=== PATIENT | male | born 1950 | race Caucasian/White ===

== ENCOUNTER 2022-09-03 16:40 | Outpatient (OUT) | payer MEDICARE, OTHER, SELFPAY ==
[2022-09-03 14:24] LABS: INR 2.16; Prothrombin Time 21.9 sec (9.0-11.6)
== END 2022-09-03 16:41 ==
LOC: LAB 09-04 11:01
PROVIDERS: PCP Family Medicine; Visit Provider Family Medicine
DX: Z79.01 Long term (current) use of 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 (principal)
CPT/HCPCS: 36415; 85610

== ENCOUNTER 2022-09-09 10:04 | Outpatient (OUT) | payer MEDICARE, OTHER, SELFPAY ==
[2022-09-09 10:17] LABS: Basophils Absolute Auto 0.1 10^3/uL (0.0-0.1); Basophils Percent Auto 0.6 % (0.2-2.0); Eosinophils Absolute Auto 0.3 10^3/uL (0.0-0.7); Eosinophils Percent Auto 3.5 % (0.9-7.0); Hematocrit 45.6 % (42.0-54.0); Hemoglobin 15.1 g/dL (14.0-18.0); Immature Granulocytes Abs Auto 0.03 10^3/uL (0.00-0.03); Immature Granulocytes Pct Auto 0.3 % (0.0-0.5); Lymphocytes Absolute Auto 2.5 10^3/uL (1.2-3.8); Mean Corpuscular HGB Conc 33.1 g/dL (29.9-35.2); Mean Corpuscular Hemoglobin 28.9 pg (25.9-34.0); Mean Corpuscular Volume 87.4 fL (80.0-94.0); Mean Platelet Volume 9.3 fL (9.5-13.5); Monocytes Absolute Auto 0.6 10^3/uL (0.3-0.8); Monocytes Percent Auto 7.3 % (1.7-12.0); Neutrophils Absolute Auto 5.2 10^3/uL (1.4-6.5); Neutrophils Percent Auto 59.3 % (43.0-75.0); Platelet Count 197 10^3/uL (150-450); Red Blood Count 5.22 10^6/uL (4.70-6.10); Red Cell Distribution Width 12.3 % (11.0-15.0); White Blood Count 8.7 10^3/uL (4.0-11.0)
[2022-09-09 12:12] LABS: Estimated Average Glucose 120 mg/dL; Glycohemoglobin A1C 5.8 % (4.5-6.2)
[2022-09-09 13:54] LABS: Alanine Aminotransferase 39 U/L (16-63); Albumin Level 3.7 g/dL (3.4-5.0); Alkaline Phosphatase 90 U/L (46-116); Anion Gap 13.9; Aspartate Amino Transferase 21 U/L (15-37); BUN Creatinine Ratio 16.8; Bilirubin Direct 0.1 mg/dL (0.0-0.2); Bilirubin Total 0.5 mg/dL (0.2-1.0); Calcium 8.9 mg/dL (8.5-10.1); Carbon Dioxide 26.9 mmol/L (21.0-32.0); Chloride 105 mmol/L (98-107); Chol HDL Ratio 3.6; Cholesterol 116 mg/dL (<=200); Estimated GFR (African America >60 (>=60); Estimated GFR (Non-African Ame >60 (>=60); Globulin 3.6 g/dL; Glucose 107 mg/dL (74-106); HDL Cholesterol 32 mg/dL (40-60); Potassium 3.8 mmol/L (3.5-5.1); Sodium 142 mmol/L (136-145); Thyroid Stimulating Hormone 2.135 uIU/mL (0.358-3.740); Total Protein 7.3 g/dL (6.4-8.2); Triglycerides 138 mg/dL (<=150); VLDL CHOLESTEROL 27.6 mg/dL
== END 2022-09-09 10:05 | disposition home or self-care (01) ==
LOC: LAB 10:04
PROVIDERS: PCP Family Medicine; Visit Provider Family Medicine
DX: I10 Essential (primary) hypertension (principal); E55.9 Vitamin D deficiency, unspecified; Z79.899 Other long term (current) drug therapy; R73.03 Prediabetes; E78.5 Hyperlipidemia, unspecified; Z12.5 Encounter for screening for malignant neoplasm of prostate; E66.9 Obesity, unspecified
CPT/HCPCS: 36415; 80048; 80061; 80076; 82306; 83036; 84443; 85025; G0103

== ENCOUNTER 2022-10-29 14:10 | Outpatient (OUT) | payer MEDICARE, OTHER, SELFPAY ==
[2022-10-29 14:49] LABS: INR 2.55; Prothrombin Time 25.6 sec (9.0-11.6)
== END 2022-10-29 14:11 | disposition home or self-care (01) ==
LOC: LAB 14:11
PROVIDERS: PCP Family Medicine; Visit Provider Family Medicine
DX: Z79.01 Long term (current) use of 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 (principal)
CPT/HCPCS: 36415; 85610

== ENCOUNTER 2022-12-01 08:04 | Outpatient (OUT) | payer MEDICARE, OTHER, SELFPAY ==
--- NOTE | 2022-12-01 08:07 | CT_ITS ---
The [address] [address] Patient Name: BILL HULL MRN: [id number] date: 1950 Sex: M Assigned Patient Location: CT Current Patient Location: LAB Accession/Order Number: [id number] Exam Date: 12/01/2022 08:15 Report Date: 12/01/2022 08:45 At the request of: OUSMANE ORNELAS Procedure: CT chest high res EXAM: CT scan of the chest without contrast. Dose reduction technique used: Automated exposure control and/or adjustment of the mA and/or kV according to patient size and/or use of iterative reconstruction technique. REASON FOR EXAM: Pulmonary fibrosis J84.10 COMPARISON: CT scan dated 11/27/2021 FINDINGS: No acute airspace opacities. No pneumothorax. No pleural effusion. No acute fractures. No concerning pulmonary nodules. No definite lymphadenopathy in the chest. Scarring in the right lower lung. Mild fibrotic changes at the periphery of both lungs are not substantially changed. Coronary atherosclerotic calcifications. Remainder unremarkable. CT/CT chest high res IMPRESSION: Mild fibrotic changes in both lungs are not substantially changed. Electronically authenticated by: RUTH CHEW Date: 12/01/2022 08:45
[2022-12-01 08:53] LABS: Hemoglobin 15.2 g/dL (14.0-18.0)
--- NOTE | 2022-12-01 09:32 | RT_ITS ---
The [facility] Test Date: 2022-12-01 Pat Name: BILL HULL Department: Room: - Gender: Male Health Care Marketing Manager: Racheal HopkinsACCOUNT ASSOCIATE : 1950 Requested By: Josafat Mckeon Order Number: [id number] Reading MD: Josafat Mckeon Interpretive Statements Pulmonary function testing was completed according to ATS criteria. Findings were considered accurate and reproducible. No bronchodilator was administered due to normal spirometric values. No prior studies available for comparison. Spirometry: -FEV1/FVC: Normal @ 78% -FEV1: Normal @ 90% -FVC: Normal @ 84% Lung volumes by plethysmography: -RV: Normal @ 107% -TLC: Normal @ 94% Diffusion capacity: -DLCO: Mild reduction @ 75% when corrected for Hb 15.1g/dL Flow-volume loop: -Normal shape Impressions: -Normal spirometry and lung volumes with isolated mild diffusion impairment. This pattern can be seen in, but not restricted to, cardiopulmonary vascular disorders, early interstitial lung disease, and early emphysema. Clinical correlation required. Electronically Signed On 12-01-2022 9:41:31 EDT by Jsoafat Mckeon
== END 2022-12-01 08:05 | disposition home or self-care (01) ==
LOC: CT 08:04
PROVIDERS: PCP Family Medicine; Visit Provider Internal Medicine
DX: J84.10 Pulmonary fibrosis, unspecified (principal)
CPT/HCPCS: 36415; 71250; 85018; 94010; 94726; 94729

== ENCOUNTER 2022-12-01 08:42 | Outpatient (OUT) | payer MEDICARE, OTHER, SELFPAY ==
[2022-12-01 09:05] LABS: INR 2.81; Prothrombin Time 28.1 sec (9.0-11.6)
== END 2022-12-01 08:43 | disposition home or self-care (01) ==
LOC: LAB 08:42
PROVIDERS: PCP Family Medicine; Visit Provider Family Medicine
DX: Z79.01 Long term (current) use of 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 (principal)
CPT/HCPCS: 36415; 85610

== ENCOUNTER 2023-01-20 12:56 | Outpatient (OUT) | payer MEDICARE, OTHER, SELFPAY ==
[2023-01-20 13:53] LABS: Prothrombin Time 23.3 sec (9.0-11.6)
== END 2023-01-20 12:57 | disposition home or self-care (01) ==
LOC: LAB 12:56
PROVIDERS: PCP Family Medicine; Visit Provider Family Medicine
DX: Z79.01 Long term (current) use of 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 (principal)
CPT/HCPCS: 36415; 85610

== ENCOUNTER 2023-03-02 13:29 | Outpatient (OUT) | payer MEDICARE, OTHER, SELFPAY ==
[2023-03-02 14:00] LABS: INR 3.03; Prothrombin Time 30.2 sec (9.0-11.6)
== END 2023-03-02 13:30 | disposition home or self-care (01) ==
LOC: LAB 13:29
PROVIDERS: PCP Family Medicine; Visit Provider Family Medicine
DX: Z79.01 Long term (current) use of 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 (principal)
CPT/HCPCS: 36415; 85610

== ENCOUNTER 2023-04-16 14:26 | Outpatient (OUT) | payer MEDICARE, OTHER, SELFPAY ==
--- OUTSIDE RECORDS SUMMARY | 2023-04-16 14:29 | XMS_ITS | CCD ---
Author Name Unknown Address [address] [place] [address] Organization [facility] Care Team Providers Care [employer] Founder Name Role Phone CHARBEL ZUÑIGA Unavailable Unavailable CICIREYES Unavailable Unavailable NADERER, DR NOEL Mckinney Admitting Unavailable NADERER, DR NOEL Mckinney Attending Unavailable NADERER, DR NOEL Mckinney Consulting Unavailable NADERER, DR NOEL Mckinney Primary Care Unavailable NADERER, DR NOEL Mckinney Admitting Unavailable NADERER, DR NOEL Mckinney Attending Unavailable NADERER, DR NOEL Mckinney Consulting Unavailable NADERER, DR NOEL Mckinney Primary Care Unavailable NADERER, DR NOEL Mckinney Primary Care Unavailable NADERER, DR NOEL Mckinney Admitting Unavailable NADERER, DR NOEL Mckinney Attending Unavailable NADERER, DR NOEL Mckinney Consulting Unavailable NADERER, DR NOEL Mckinney Primary Care Unavailable NADERER, DR NOEL Mckinney Consulting Unavailable NADERER, DR NOEL Mckinney Admitting Unavailable NADERER, DR NOEL Mckinney Attending Unavailable NADERER, DR NOEL Mckinney Primary Care Unavailable NADERER, DR NOEL Mckinney Consulting Unavailable NADERER, DR NOEL Mckinney Admitting Unavailable NADERER, DR NOEL Mckinney Attending Unavailable NADERER, DR NOEL Mckinney Primary Care Unavailable NADERER, DR NOEL Mckinney Consulting Unavailable NADERER, DR NOEL Mckinney Admitting Unavailable NADERER, DR NOEL Mckinney Attending Unavailable SAMSA ., OUSMANE Admitting Unavailable [place], DR KELY Rae Consulting Unavailable SAMSA ., OUSMANE Attending Unavailable NADERER, DR NOEL Mckinney Primary Care Unavailable SAMSA ., OUSMANE Consulting Unavailable Problems Active Problems Problem Classification Problem Date Documented Da te Episodic/Chronic Other aftercare (4 sources) 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; Translations: [NURSING HOME CURRNT USE ANTICOAGULANTS] Onset: 07-17-2022 Episodic Other lower respiratory disease (4 sources) Pulmonary fibrosis, unspecified; Translations: [PULMONARY FIBROSIS UNSPECIFIED] Onset: 11-27-2021 Chronic Substance-related disorders (1 source) Nicotine dependence, cigarettes, uncomplicated; Translations: [NICOTINE DEPEND CIGARETTES UNCOMP] Onset: 12-01-2021 Chronic Past or Other Problems Problem Classification Problem Date Documented Da te Episodic/Chronic Other aftercare (1 source) Encounter for follow-up examination after completed treatment for conditions other than malignant neoplasm; Translations: [Encounter for follow-up examination after completed treatment for conditions other than malignant neoplasm] Onset: 04-16-2017 Episodic Results Test Name Value Interpretation Reference Range Facility PROTIMEon 07-17-2022 INR Coag (PPP) [Relative time] 2.75 {INR} Normal [facility] Comment on above: Performed By: #### PT #### [facility] [address] [place] [address] Dr. Roya Martin INR GUIDELINES SEE BELOW Normal [facility] Comment on above: Result Comment: DESIRED INR: 2.0 - 3.0 C ONDITIONS NOT LISTED BELOW 2.5 - 3.5 FOR PROSTHETIC HEART VALVE REPLACEMENT 2.5 - 3.5 RECURRENT THROMBOSIS Performed By: #### P T #### [facility] [address] [place] [address] Dr. Roya Martin PT Coag (PPP) [Time] 27.5 s Critically high 9.0-11.6 [facility] Comment on above: Performed By: #### PT #### [facility] [address] [place] [address] Dr. Roya Martin PROTIMEon 06-04-2022 INR Coag (PPP) [Relative time] 2.97 {INR} Normal [facility] Comment on above: Performed By: #### PT #### [facility] [address] [place] [address] Dr. Roya Martin INR GUIDELINES SEE BELOW Normal [facility] Comment on above: Result Comment: DESIRED INR: 2.0 - 3.0 C ONDITIONS NOT LISTED BELOW 2.5 - 3.5 FOR PROSTHETIC HEART VALVE REPLACEMENT 2.5 - 3.5 RECURRENT THROMBOSIS Performed By: #### P T #### [facility] [address] [place] [address] Dr. Roya Martin PT Coag (PPP) [Time] 29.6 s Critically high 9.0-11.6 [facility] Comment on above: Performed By: #### PT #### [facility] [address] [place] [address] Dr. Roya Martin PROTIMEon 04-03-2022 INR Coag (PPP) [Relative time] 3.40 {INR} Normal [facility] Comment on above: Performed By: #### PT #### [facility] [address] [place] [address] Dr. Roya Martin INR GUIDELINES SEE BELOW Normal [facility] Comment on above: Result Comment: DESIRED INR: 2.0 - 3.0 C ONDITIONS NOT LISTED BELOW 2.5 - 3.5 FOR PROSTHETIC HEART VALVE REPLACEMENT 2.5 - 3.5 RECURRENT THROMBOSIS Performed By: #### P T #### [facility] [address] [place] [address] Dr. Roya Martin PT Coag (PPP) [Time] 33.6 s Critically high 9.0-11.6 [facility] Comment on above: Performed By: #### PT #### [facility] [address] [place] [address] Dr. Roya Martin PROTIMEon 01-06-2022 INR Coag (PPP) [Relative time] 2.45 {INR} Normal [facility] Comment on above: Performed By: #### PT #### [facility] [address] [place] [address] Dr. Roya Martin INR GUIDELINES SEE BELOW Normal [facility] Comment on above: Result Comment: DESIRED INR: 2.0 - 3.0 C ONDITIONS NOT LISTED BELOW 2.5 - 3.5 FOR PROSTHETIC HEART VALVE REPLACEMENT 2.5 - 3.5 RECURRENT THROMBOSIS Performed By: #### P T #### [facility] [address] [place] [address] Dr. Roya Martin PT Coag (PPP) [Time] 25.0 s Critically high 9.0-11.6 [facility] Comment on above: Performed By: #### PT #### [facility] [address] [place] [address] CHEST HI RESOLUTIONon CT CHEST HI RESOLUTION EXAMINATION: CT CHEST HI RESOLUTION HISTORY: Fibrosis of lung COMPARISON: 11/20/2020 TECHNIQUE: Axial images were obtained at 10 mm intervals during inspiration and expiration in the supine and prone positions. No IV contrast given. Dose reduction techniques were achieved by using automated exposure control and/or adjustment of mA and/or kV according to patient size and/or use of iterative reconstruction technique. FINDINGS: LUNGS: Minimal peripheral subpleural honeycombing with intralobular septal thickening most significant in the medial basilar segments of the lower lobes right greater than left, slightly progressed from the prior exam Contiguous images demonstrate a few scattered punctate pulmonary nodules. Calcified tracheobronchial tree with no bronchiectasis PLEURA: No mass, effusion, or pneumothorax. JENNI: Calcified left hilar lymph nodes MEDIASTINUM: No mass or adenopathy. CHEST WALL: No mass or axillary adenopathy LIMITED ABDOMEN: No suspicious findings. Limited images of the upper abdomen. OTHER: Moderate aortic atherosclerosis IMPRESSION: Slight progression of subpleural honeycombing and interlobular septal thickening suggestive of pulmonary fibrosis/UIP Electronically authenticated by: KELY TAYLOR Date: 2021-11-27 08:56 Normal [facility] HEMOGLOBINon 11-27-2021 Hemoglobin (Bld) [Mass/Vol] 15.4 g/dL Normal 14.0-18.0 [facility] Comment on above: Performed By: #### HGB #### [facility] [address] [place] [address] Dr. Roya Martin PROTIMEon 11-14-2021 INR Coag (PPP) [Relative time] 2.28 {INR} Normal [facility] Comment on above: Performed By: #### PT #### [facility] [address] [place] [address] Dr. Roya Martin INR GUIDELINES SEE BELOW Normal [facility] Comment on above: Result Comment: DESIRED INR: 2.0 - 3.0 C ONDITIONS NOT LISTED BELOW 2.5 - 3.5 FOR PROSTHETIC HEART VALVE REPLACEMENT 2.5 - 3.5 RECURRENT THROMBOSIS Performed By: #### P T #### [facility] [address] [place] [address] Dr. Roya Martin PT Coag (PPP) [Time] 23.3 s Critically high 9.0-11.6 [facility] Comment on above: Performed By: #### PT #### [facility] [address] [address] [address] Roya Martin PROTIMEon 09-09-2021 INR Coag (PPP) [Relative time] 2.70 {INR} Normal [facility] Comment on above: Performed By: #### PT #### [facility] [address] [place] [address] Dr. Roya Martin INR GUIDELINES SEE BELOW Normal [facility] Comment on above: Result Comment: DESIRED INR: 2.0 - 3.0 C ONDITIONS NOT LISTED BELOW 2.5 - 3.5 FOR PROSTHETIC HEART VALVE REPLACEMENT 2.5 - 3.5 RECURRENT THROMBOSIS Performed By: #### P T #### [facility] [address] [address] [address] Roya Martin PT Coag (PPP) [Time] 27.3 s Critically high 9.0-11.6 [facility] Comment on above: Performed By: #### PT #### [facility] [address] [place] [address] Dr. Roya Martin CNOVon 04-16-2017 CNOV Office Visit (CARDFT) BILL PELAEZ ([id number]) 1950 MDate Time Provider Department04/16/17 11:30 AM CHARBEL ZUÑIGA During your visit today, we recorded the following information about you: Pulse Respiration Blood pressure Weight 72/minute 18/minute 125/74 99.3 kg Height 1.778 Aurea Zuñiga MD 04/16/2017 11:49 AM [facility] Department of Cardiovascular MedicineOUTPATIENT VISIT DATE04/16/17OUTPATIENT VISIT TYPEEstablcape fear/harnett healthPRATRIUM [facility] PHYSICIAN:Reyes Bolanos, [id number] 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 History includes frequent PVCs, DVT, renal artery stenosis. He remains very physically active and mostly compliant with a lean diet. Nopalpitations and blood pressure has been well-controlledDenies chest pain, shortness of breath, orthopnea, cough, edema, palpitations,PND, lightheadedness or syncope with physical activity.PAST MEDICAL HISTORYDiagnosis Date- BPH (benign prostatic hypertrophy)- Bradycardia- DVT (deep venous thrombosis) (HCC)- Hx of blood clots- Palpitations- Renal artery stenosis (HCC)No past surgical history on file.NoneSocial HistorySubstance Use Topics- Smoking status: Former Smoker Packs/day: 1.50 Years: 22.00 Types: Cigarettes Quit date: 11/15/1991- Smokeless tobacco: Never Used- Alcohol use NoNo family history on file.NoneALLERGIES:ALLERGIESNo Known AllergiesMEDICATIONS:hydroCHLOR Othiazide (HYDRODIURIL, ESIDRIX) 25 mg tablet Take by mouth oncedaily.lisinopril (ZESTRIL, PRINIVIL) 10 mg tablet Take by mouth once daily.warfarin (COUMADIN) 5 mg tablet Take by mouth daily as directed.metoprolol tartrate, short acting, (LOPRESSOR) 50 mg tablet Take by mouthtwice daily.terazosin (HYTRIN) 5 mg capsule Take by mouth daily at bedtime.simvastatin (ZOCOR) 40 mg tablet Take by mouth daily at bedtime.coenzyme Q10 (COQ-10) 100 mg cap capsule Take by mouth twice daily.Glucosamine Sulfate (GLUCOSAMINE) 500 mg tab Take 1 tablet by mouth.REVIEW OF SYSTEMS:GENERAL: Negative for: Fever, Fatigue.CARDIAC: See HPI above.HEENT: Negative for: Ringing in Ears, nosebleeds, bleeding gums. AdequatedentitionNECK: Negative for: Pain, stiffnessRESPIRATORY: Negative for: Blood in sputum, wheezing.GASTROINTESTINAL: Negative for: Trouble swallowing, blood in stoolMUSCULOSKELETAL: Negative for: Joint stiffness and painNEUROLOGIC: Negative for: Numbness, tremorsPSYCHIATRIC: Negative for: Anxiety, depressionSKIN: Negative for: Rashes, itchingHEMATOLOGICAL/LYMPHATIC: Negative for: Easy bruising, easy bleeding, painfullymph nodesI personally interviewed, confirmed and edited the above information ifobtained by others.PHYSICAL EXAMINATION:BP 125/74 Pulse 72 Resp 18 Ht 177.8 cm (5' 10ANDquot;) Wt 99.3 kg (219lb) SpO2 98% BMI 31.42 kg/b7Nagiqgw: Well appearing, in no acute distress. ObeseNeuro: Oriented to person, place and time, alert, cooperative.Eyes: Extra ocular movements intact, pupils react to lightNeck: No jugular venous distention, no palpable thyromegaly.Heart: Regular rhythm, S1, S2 normal, no S3, no S4. No murmur.Lungs: Clear to auscultation bilaterally. Good respiratory effort.Abdomen: Soft, nontender, bowel sounds normal, no palpable hepatosplenomegalySkin: No clubbing, no cyanosis.Extremities: Normal pulses in distal lower extremities. Absent lower extremityedemaCARDIOVASCULAR MEDICINE TESTING:Electrocardiogram: 04/16/16 NormalEchocardiogram: 01/08/16 [place], stage 1 diastology, no [id number] day monitor 02/14/16inus, rare PACs, frequent PVCs corresponding to palpitationsI have personally reviewed the above Cardiovascular Medicine Testing.IMPRESSION/PLAN:Bill Allen is a 66 year old male with history of frequent PVCs, DVT, HTNhere to follow-upFrequent PVCs: Asymptomatic. Very functional and active. Will continue betablocker at current dose without change. No significant structural heart diseaseon prior echocardiogramDVT: Continue warfarin. Managed by PCP.Hypertension: He has renal artery stenosis that is medically managed. Continuecurrent regimenDisposition: Follow up in clinic in 12 months. Pending studies: noneCONTACT INFORMATION:Thank you for allowing us to assist in the care your patient. As always pleasedo not hesitate to contact us with further questions or concerns.Charbel Zuñiga M.D.[facility] of Cardiovascular MedicineFort Hamilton Hospitalrt and Vascular InstituteThomas Ville [address], [place] [address]Hxbllr: [phone] Referring Provider: REYES BOLANOS [[id number]]Allergies As of Date: 04/16/2017(No Known Allergies)Date Reviewed: 04/16/2017Reviewed by: Kelly Mckinney (Rn) MAHNAZ Huitron - Fully AssessedPrimary Visit Diagnosis:Essential hypertension [I10] Other Visit Diagnosis:PVC (premature ventricular contraction) [I49.3]Prescriptions as of 04/16/2017 Sig: HYDROCHLOROTHIAZIDE 25 MG TAB* Take by mouth once daily. LISINOPRIL 10 MG TABLET Take by mouth once daily. WARFARIN 5 MG TABLET Take by mouth daily as direc* METOPROLOL TARTRATE 50 MG TAB* Take by mouth twice daily. TERAZOSIN 5 MG CAPSULE Take by mouth daily at bedti* SIMVASTATIN 40 MG TABLET Take by mouth daily at bedti* COENZYME Q10 100 MG CAPSULE Take by mouth twice daily. GLUCOSAMINE SULFATE 500 MG TA* Take 1 tablet by mouth.Medication notes this encounter HYDROCHLOROTHIAZIDE 25 MG TABLET >> Jayden Kolb RN 04/16/2017 11:29 AM >> KELLY HUITRON [facility] Apr 16, 2017 11:29 AM Received from: External Pharmacy >> Jayden Kolb RN 04/16/2017 11:29 AM >> KELLY HUITRON Adriana Apr 16, 2017 11:29 AM LISINOPRIL 10 MG TABLET >> Jayden Kolb RN 04/16/2017 11:29 AM >> KELLY HUITRON [facility] Apr 16, 2017 11:29 AM Received from: External Pharmacy >> Jayden Kolb RN 04/16/2017 11:29 AM >> KELLY HUITRON Adriana Apr 16, 2017 11:29 AMProblem List As Of Date: 04/16/2017(None)Medications Discontinued During This Encounter losartan-hydrochlorothiazide (HYZAAR* 90 t* 3 04/16/2016 04/16/2017 Route: ORAL Sig: Take 1 tablet by mouth once daily. Disc: Erroneous entryDisposition: Return if symptoms worsen or fail to improve.Follow-up and Disposition History RecordedEncounter Number: [id number] Status:Closed by CHARBEL ZUÑIGA MD on 04/16/17 [facility] PROGRESSon 04-13-2017 PROGRESS HNO ID: [id number] thor: Charbel Weeks: (none)Author Type: PhysicianType: Progress NotesFiled: 04/16/2017 11:49 AMNote Text:Heart and Vascular InstituteBison and Maris Santos Department of Cardiovascular MedicineOUTPATIENT VISIT DATE04/16/17OUTPATIENT VISIT TYPEEstablishedPRIMARY CARE PHYSICIAN:Reyes Bolanos, [id number] 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 History includes frequent PVCs, DVT, renalartery stenosis. He remains very physically active and mostly compliantwith a lean diet. No palpitations and blood pressure has beenwell-controlledDenies chest pain, shortness of breath, orthopnea, cough, edema,palpitations, PND, lightheadedness or syncope with physical activity.PAST MEDICAL HISTORYDiagnosis Date- BPH (benign prostatic hypertrophy)- Bradycardia- DVT (deep venous thrombosis) (HCC)- Hx of blood clots- Palpitations- Renal artery stenosis (HCC)No past surgical history on file.NoneSocial HistorySubstance Use Topics- Smoking status: Former Smoker Packs/day: 1.50 Years: 22.00 Types: Cigarettes Quit date: 11/15/1991- Smokeless tobacco: Never Used- Alcohol use NoNo family history on file.NoneALLERGIES:ALLERGIESNo Known AllergiesMEDICATIONS:hydroCHLOR Othiazide (HYDRODIURIL, ESIDRIX) 25 mg tablet Take by mouth oncedaily.lisinopril (ZESTRIL, PRINIVIL) 10 mg tablet Take by mouth once daily.warfarin (COUMADIN) 5 mg tablet Take by mouth daily as directed.metoprolol tartrate, short acting, (LOPRESSOR) 50 mg tablet Take by mouthtwice daily.terazosin (HYTRIN) 5 mg capsule Take by mouth daily at bedtime.simvastatin (ZOCOR) 40 mg tablet Take by mouth daily at bedtime.coenzyme Q10 (COQ-10) 100 mg cap capsule Take by mouth twice daily.Glucosamine Sulfate (GLUCOSAMINE) 500 mg tab Take 1 tablet by mouth.REVIEW OF SYSTEMS:GENERAL: Negative for: Fever, Fatigue.CARDIAC: See HPI above.HEENT: Negative for: Ringing in Ears, nosebleeds, bleeding gums. AdequatedentitionNECK: Negative for: Pain, stiffnessRESPIRATORY: Negative for: Blood in sputum, wheezing.GASTROINTESTINAL: Negative for: Trouble swallowing, blood in stoolMUSCULOSKELETAL: Negative for: Joint stiffness and painNEUROLOGIC: Negative for: Numbness, tremorsPSYCHIATRIC: Negative for: Anxiety, depressionSKIN: Negative for: Rashes, itchingHEMATOLOGICAL/LYMPHATIC: Negative for: Easy bruising, easy bleeding,painful lymph nodesI personally interviewed, confirmed and edited the above information ifobtained by others.PHYSICAL EXAMINATION:BP 125/74 Pulse 72 Resp 18 Ht 177.8 cm (5' 10 ) Wt 99.3 kg (219lb) SpO2 98% BMI 31.42 kg/b2Sinuhhn: Well appearing, in no acute distress. ObeseNeuro: Oriented to person, place and time, alert, cooperative.Eyes: Extra ocular movements intact, pupils react to lightNeck: No jugular venous distention, no palpable thyromegaly.Heart: Regular rhythm, S1, S2 normal, no S3, no S4. No murmur.Lungs: Clear to auscultation bilaterally. Good respiratory effort.Abdomen: Soft, nontender, bowel sounds normal, no palpablehepatosplenomegalySkin: No clubbing, no cyanosis.Extremities: Normal pulses in distal lower extremities. Absent lowerextremity edemaCARDIOVASCULAR MEDICINE TESTING:Electrocardiogram: 04/16/16 NormalEchocardiogram: 01/08/16 [place] [facility], stage 1 diastology, no [id number] day monitor 02/14/16inus, rare PACs, frequent PVCs corresponding to palpitationsI have personally reviewed the above Cardiovascular Medicine Testing.IMPRESSION/PLAN:Bill Allen is a 66 year old male with history of frequent PVCs, DVT,HTN here to follow-upFrequent PVCs: Asymptomatic. Very functional and active. Will continuebeta chelsi at current dose without change. No significant structuralheart disease on prior echocardiogramDVT: Continue warfarin. Managed by PCP.Hypertension: He has renal artery stenosis that is medically managed.Continue current regimenDisposition: Follow up in clinic in 12 months. Pending studies: noneCONTACT INFORMATION:Thank you for allowing us to assist in the care your patient. As alwaysplease do not hesitate to contact us with further questions or concerns.Charbel Zuñiga M.D.[facility] of Cardiovascular MedicineHeart and Vascular InstituteMichael Ville [address] [address], [place] [address]Flujcx: [phone] [facility] Encounters Encounter Date Encounter Type Care Provider Facility Start: 07-17-2022 End: 07-18-[address] NOEL CERVANTES Facility:[facility] Start: 06-04-2022 End: 06-05-[address] NOEL CERVANTES Facility:[facility] Start: 04-03-2022 End: 04-04-[address] NOEL CERVANTES Facility:[facility] Start: 01-06-2022 End: 01-13-[address] NOEL CERVANTES Facility:[facility] Start: 11-27-2021 End: 11-28-2021 ambulatory OUSMANE Tavares Facility:[facility] Start: 11-14-2021 End: 12-14-[address] NOEL CERVANTES Facility:[facility] Start: 09-09-2021 End: 09-13-[address] NOEL CERVANTES Facility:[facility] Start: 04-16-2017 End: 04-22-2017 Ambulatory CHARBEL ZUÑIGA [facility] Payers Date Payer Category Payer Medicare [id number] 1959 Unknown [id number] 1950 Unknown [id number] 2.16.84 [id number] 1950 Unknown [id number] 2.16.84 [id number] 1950 Unknown [id number] 2.16.84 [id number] 1950 Unknown [id number] 2.16.84 [id number] 1950 Unknown [id number] 2.16.84 [id number] 1950 Unknown [id number] 2.16.84 [id number] 1950 Unknown [id number] 2.16.84 [id number] Summary Purpose Family History No Family History Records FoundNo Family History Records Found Advance Directives No Advanced Directives Records FoundNo Advanced Directives Records Found Additional Source Comments (unrecognized sect ion and content) No Status Records FoundNo Status Records Found INFORMATION SOURCE (unrecogn ized section and content) DATE CREATED AUTHOR 09/07/2017 [facility] DATE CREATED AUTHOR AUTHOR'S FRANCISCO DENNEY 07/24/2022 [facility] FOR RECORDS PERTAINING TO PATIENTS WHO ARE OR HAVE BEEN ENROLLED IN A CHEMICAL DEPENDENCY/SUBSTANCEABUSE PROGRAM, SOME INFORMATION MAY BE OMITTED. This clinical summary was aggregated from multiple sources. Caution should be exercised in using it in the provision of clinical care. This summary normalizes information from multiple sources, and as a consequence, information in this document may materially change the coding, format and clinical context of patient data. In addition, data may be omitted in some cases. CLINICAL DECISIONS SHOULD BE BASED ON THE PRIMARY CLINICAL RECORDS. [facility] [employer] [facility]. provides no warranty or guarantee of the accuracy or completeness of information in this document.
[2023-04-16 15:01] LABS: INR 2.18; Prothrombin Time 22.1 sec (9.0-11.6)
== END 2023-04-16 14:27 | disposition home or self-care (01) ==
LOC: LAB 14:26
PROVIDERS: PCP Family Medicine; Visit Provider Family Medicine
DX: Z79.01 Long term (current) use of 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 (principal)
CPT/HCPCS: 36415; 85610

== ENCOUNTER 2023-06-04 14:12 | Outpatient (OUT) | payer MEDICARE, OTHER, SELFPAY ==
--- OUTSIDE RECORDS SUMMARY | 2023-06-04 14:31 | XMS_ITS | CCD ---
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 Roya Martin INR GUIDELINES SEE BELOW Normal [facility] [place] Comment on above: Result Comment: DESIRED INR: 2.0 - 3.0 C ONDITIONS NOT LISTED BELOW 2.5 - 3.5 FOR PROSTHETIC HEART VALVE REPLACEMENT 2.5 - 3.5 RECURRENT THROMBOSIS Performed By: #### P T #### [facility] [address] [place] [address] Dr. Roya Martin PT Coag (PPP) [Time] 27.5 s Critically high 9.0-11.6 [facility] [place] Comment on above: Performed By: #### PT #### [facility] [address] [place] [address] Dr. Roya Martin PROTIMEon 06-04-2022 INR Coag (PPP) [Relative time] 2.97 {INR} Normal [facility] [place] Comment on above: Performed By: #### PT #### [facility] [address] [place] [address] Dr. Roya Martin INR GUIDELINES SEE BELOW Normal [facility] Comment on above: Result Comment: DESIRED INR: 2.0 - 3.0 C ONDITIONS NOT LISTED BELOW 2.5 - 3.5 FOR PROSTHETIC HEART VALVE REPLACEMENT 2.5 - 3.5 RECURRENT THROMBOSIS Performed By: #### P T #### [facility] [address] [place] [address] Dr. Roya Martin PT Coag (PPP) [Time] 29.6 s Critically high 9.0-11.6 [facility] [place] Comment on above: Performed By: #### PT #### [facility] [address] [place] [address] Dr. Roya Martin PROTIMEon 04-03-2022 INR Coag (PPP) [Relative time] 3.40 {INR} Normal [facility] Comment on above: Performed By: #### PT #### [facility] [address] [place] [address] Dr. Roya Martin INR GUIDELINES SEE BELOW Normal [facility] Comment on above: Result Comment: DESIRED INR: 2.0 - 3.0 C ONDITIONS NOT LISTED BELOW 2.5 - 3.5 FOR PROSTHETIC HEART VALVE REPLACEMENT 2.5 - 3.5 RECURRENT THROMBOSIS Performed By: #### P T #### [facility] [address] [place] [address] Dr. Roya Martin PT Coag (PPP) [Time] 33.6 s Critically high 9.0-11.6 [facility] [place] Comment on above: Performed By: #### PT #### [facility] [address] [place] [address] Dr. Roya Martin PROTIMEon 01-06-2022 INR Coag (PPP) [Relative time] 2.45 {INR} Normal [facility] [place] Comment on above: Performed By: #### PT #### [facility] [address] [place] [address] Dr. Roya Martin INR GUIDELINES SEE BELOW Normal [facility] Comment on above: Result Comment: DESIRED INR: 2.0 - 3.0 C ONDITIONS NOT LISTED BELOW 2.5 - 3.5 FOR PROSTHETIC HEART VALVE REPLACEMENT 2.5 - 3.5 RECURRENT THROMBOSIS Performed By: #### P T #### [facility] [address] [place] [address] Dr. Roya Martin PT Coag (PPP) [Time] 25.0 s Critically high 9.0-11.6 [facility] Comment on above: Performed By: #### PT #### [facility] [address] [place] [address] CHEST HI RESOLUTIONon [...] KELY TAYLOR Date: 2021-11-27 08:56 Normal [facility] HEMOGLOBINon 11-27-2021 Hemoglobin (Bld) [Mass/Vol] 15.4 g/dL Normal 14.0-18.0 [facility] [place] Comment on above: Performed By: #### HGB #### [facility] [address] [place] [address] Dr. Roya Martin PROTIMEon 11-14-2021 INR Coag (PPP) [Relative time] 2.28 {INR} Normal [facility] [place] Comment on above: Performed By: #### PT #### [facility] [address] [place] [address] Dr. Roya Martin INR GUIDELINES SEE BELOW Normal [facility] Comment on above: Result Comment: DESIRED INR: 2.0 - 3.0 C ONDITIONS NOT LISTED BELOW 2.5 - 3.5 FOR PROSTHETIC HEART VALVE REPLACEMENT 2.5 - 3.5 RECURRENT THROMBOSIS Performed By: #### P T #### [facility] [address] [place] [address] Dr. Roya Martin PT Coag (PPP) [Time] 23.3 s Critically high 9.0-11.6 [facility] [place] Comment on above: Performed By: #### PT #### [facility] [address] [place] [address] Dr. Roya Martin PROTIMEon 09-09-2021 INR Coag (PPP) [Relative time] 2.70 {INR} Normal [facility] [place] Comment on above: Performed By: #### PT #### [facility] [address] [place] [address] Dr. Roya Martin INR GUIDELINES SEE BELOW Normal [facility] [place] Comment on above: Result Comment: DESIRED INR: 2.0 - 3.0 C ONDITIONS NOT LISTED BELOW 2.5 - 3.5 FOR PROSTHETIC HEART VALVE REPLACEMENT 2.5 - 3.5 RECURRENT THROMBOSIS Performed By: #### P T #### [facility] [address] [place] [address] Dr. Roya Martin PT Coag (PPP) [Time] 27.3 s Critically high 9.0-11.6 [facility] [place] Comment on above: Performed By: #### PT #### [facility] [address] [place] [address] Dr. Roya Martin CNOVon 04-16-2017 CNOV Office Visit (CARDFT) BILL PELAEZ ([id number]) 1950 MDate Time Provider Department04/16/17 11:30 AM CHARBEL ZUÑIGA During your visit today, we recorded the following information about you: Pulse Respiration Blood pressure Weight 72/minute 18/minute 125/74 99.3 kg Height 1.778 Aurea Zuñiga MD 04/16/2017 11:49 AM [facility] Department of Cardiovascular MedicineOUTPATIENT VISIT DATE04/16/17OUTPATIENT VISIT TYPEEstablishedPRIMARY CARE PHYSICIAN:Reyes Bolanos, [id number] 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 [...] 99.3 kg (219lb) SpO2 98% BMI 31.42 kg/u9Hzdkqqq: Well appearing, in no acute distress. ObeseNeuro: [...] 01/08/16 [place], stage 1 diastology, no [id number] day monitor 02/14/16inus, rare PACs, frequent PVCs [...] with further questions or concerns.Charbel Zuñiga M.D.Joel NapierDepartment of Cardiovascular MedicineHeart and Vascular InstituteCleveland Clinic Foundation[address], [place] [address]Zqvwoj: [phone] Referring Provider: REYES BOLANOS [[id number]]Allergies As of Date: 04/16/2017(No Known Allergies)Date Reviewed: [...] RN 04/16/2017 11:29 AM >> KELLY HUITRON [facility] Apr 16, 2017 11:29 AM Received from: External Pharmacy >> Jayden Kolb RN 04/16/2017 11:29 AM >> KELLY HUITRON Adriana Apr 16, 2017 11:29 AM LISINOPRIL 10 MG TABLET >> Jayden Kolb RN 04/16/2017 11:29 AM >> KELLY HUITRON Adriana Apr 16, 2017 11:29 AM Received from: [...] to improve.Follow-up and Disposition History RecordedEncounter Number: [id number] Status:Closed by CHARBEL ZUÑIGA MD on 04/16/17 Normal [facility] PROGRESSon 04-13-2017 PROGRESS HNO ID: [id number] thor: Charbel Micky: (none)Author Type: PhysicianType: Progress NotesFiled: 04/16/2017 11:49 AMNote Text:[facility] InstituteS[facility] Department of Cardiovascular MedicineOUTPATIENT VISIT DATE04/16/17OUTPATIENT VISIT TYPEEstablishedPRTHE OUTER BANKS HOSPITALRY CARE PHYSICIAN:Reyes Bolanos, [id number] 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 [...] 99.3 kg (219lb) SpO2 98% BMI 31.42 kg/o8Woqmdvc: Well appearing, in no acute distress. ObeseNeuro: [...] 01/08/16 [place] 55, stage 1 diastology, no [id number] day monitor 02/14/16inus, rare PACs, frequent PVCs [...] M.D.Joel Childs of Cardiovascular MedicineHeart and Vascular InstituteCleveland Clinic Foundation[address], [place] [address]Kyosxg: [phone] [facility] Encounters Encounter Date Encounter Type Care [...] Start: 04-16-2017 End: 04-22-2017 Ambulatory CHARBEL ZUÑIGA [facility] Payers Date Payer Category Payer Medicare [id number] 1959 Unknown [id number] 1950 Unknown [id number] 2.16.84 [id number] 1950 Unknown [id number] 2.16.84 [id number] 1950 Unknown [id number] 2.16.84 [id number] 1950 Unknown [id number] 2.16.84 [id number] 1950 Unknown [id number] 2.16.84 [id number] 1950 Unknown [id number] 2.16.84 [id number] 1950 Unknown [id number] 2.16.84 [id number] Summary Purpose Family History No Family History Records FoundNo Family History Records Found Advance Directives No Advanced Directives Records FoundNo Advanced Directives Records Found Additional Source Comments (unrecognized sect ion and content) No Status Records FoundNo Status Records Found INFORMATION SOURCE (unrecogn ized section and content) DATE CREATED AUTHOR 09/07/2017 [facility] DATE CREATED AUTHOR AUTHOR'S FRANCISCO DENNEY 07/24/2022 [facility] FOR RECORDS PERTAINING TO PATIENTS WHO ARE [...] BE BASED ON THE PRIMARY CLINICAL RECORDS. [facility] [employer] provides no warranty or guarantee of the accuracy or completeness of information in this document.
[2023-06-04 14:52] LABS: INR 3.29; Prothrombin Time 32.6 sec (9.0-11.6)
== END 2023-06-04 14:13 | disposition home or self-care (01) ==
LOC: LAB 14:12
PROVIDERS: PCP Family Medicine; Visit Provider Family Medicine
DX: Z79.01 Long term (current) use of 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 (principal)
CPT/HCPCS: 36415; 85610

== ENCOUNTER 2023-07-23 10:38 | Outpatient (OUT) | payer MEDICARE, OTHER, SELFPAY ==
[2023-07-23 12:07] LABS: INR 2.52; Prothrombin Time 24.4 sec (9.0-11.6)
== END 2023-07-23 10:39 | disposition home or self-care (01) ==
LOC: LAB 10:38
PROVIDERS: PCP Family Medicine; Visit Provider Family Medicine
DX: Z79.01 Long term (current) use of 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 (principal)
CPT/HCPCS: 36415; 85610

== ENCOUNTER 2023-09-01 13:16 | Outpatient (OUT) | payer MEDICARE, OTHER, SELFPAY ==
[2023-09-01 13:51] LABS: INR 3.21; Prothrombin Time 30.3 sec (9.0-11.6)
== END 2023-09-01 13:17 | disposition home or self-care (01) ==
LOC: LAB 13:16
PROVIDERS: PCP Family Medicine; Visit Provider Family Medicine
DX: Z79.01 Long term (current) use of 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 (principal)
CPT/HCPCS: 36415; 85610

== ENCOUNTER 2023-09-18 12:32 | Outpatient (OUT) | payer MEDICARE, OTHER, SELFPAY ==
--- OUTSIDE RECORDS SUMMARY | 2023-09-18 12:36 | XMS_ITS | CCD ---
Author Organization [facility] Care Team Providers Care Director Name Role Phone CHARBEL ZUÑIGA Unavailable Unavailable REYES BOLANOS Unavailable Unavailable NADERER, DR DAYRON Mckinney Admitting Unavailable NADERER, DR DAYRON Mckinney Attending Unavailable NADERER, DR DAYRON Mckinney Consulting Unavailable NADERER, DR DAYRON Mckinney Primary Care Unavailable NADERER, DR DAYRON Mckinney Admitting Unavailable NADERER, DR DAYRON Mckinney Attending Unavailable NADERER, DR DAYRON Mckinney Consulting Unavailable NADERER, DR DAYRON Mckinney Primary Care Unavailable NADERER, DR DAYRON Mckinney Primary Care Unavailable NADERER, DR DAYRON Mckinney Admitting Unavailable NADERER, DR DAYRON Mckinney Attending Unavailable NADERER, DR DAYRON Mckinney Consulting Unavailable NADERER, DR DAYRON Mckinney Primary Care Unavailable NADERER, DR DAYRON Mckinney Consulting Unavailable NADERER, DR DAYRON Mckinney Admitting Unavailable NADERER, DR DAYRON Mckinney Attending Unavailable NADERER, DR DAYRON Mckinney Primary Care Unavailable NADERER, DR DAYRON Mckinney Consulting Unavailable NADERER, DR DAYRON Mckinney Admitting Unavailable NADERER, DR DAYRON Mckinney Attending Unavailable NADERER, DR DAYRON Mckinney Primary Care Unavailable NADERER, DR DAYRON Mckinney Consulting Unavailable NADERER, DR DAYRON Mckinney Admitting Unavailable NADERER, DR DAYRON Mckinney Attending Unavailable SAMSA ., OUSMANE Admitting Unavailable [place], DR KELY Rae Consulting Unavailable SAMSA ., OUSMANE Attending Unavailable NADERER, DR DAYRON Mckinney Primary Care Unavailable SAMSA ., OUSMANE Consulting Unavailable MD Dayron Cervantes Primary Care Provider MD Stanley Gregory II Attending Provider Stanley Gregory II Attending Unavailabl e NadDayron laurent Primary Care Unavailable Stanley Gregory II Admitting UnavailStanley Gaffney II Attending Unavaillinda e Dayron Cervantes Primary Care Unavailable Stanley Gregory II Admitting Unavailabl e NADEREJaydenDAYRON Attending Unavailable NADERER, DAYRON Attending Unavailable Medications Current Medications Medication Drug Class(es) Dates Sig (Normalized) Sig (Original) Cholecalciferol (1 source) Vitamin D Start: 07-15-2023 Cholecalciferol (Vitamin D3) Active MCG PO July 15, 2023 12:00am glucosamine sulfate 1000 mg oral capsule (1 source) Start: 07-15-2023 take 1000 mg by mouth twice daily at mealtime Glucosamine Sulfate Active 1000 MG PO Twice daily July 15, 2023 12:00am administer with meals lisinopril 10 mg oral tablet (1 source) Angiotensin Converting Enzyme Inhibitor Start: 07-15-2023 take 10 mg by mouth once daily Lisinopril Active 10 MG PO Daily July 15, 2023 12:00am Medical marijuana (1 source) Start: 07-15-2023 Medical marijuana Active PO July 15, 2023 12:00am Metoprolol (1 source) beta-Adrenergic Samir Start: 07-15-2023 Metoprolol Tartrate Active MG PO July 15, 2023 12:00am Multivitamin preparation (1 source) Start: 07-15-2023 take 1 tablet by mouth once daily Multivitamin Active 1 TAB PO Daily July 15, 2023 12:00am simvastatin 20 mg oral tablet (1 source) HMG-CoA Reductase Inhibitor Start: 07-15-2023 take 20 mg by mouth once daily Simvastatin Active 20 MG PO Daily July 15, 2023 12:00am terazosin 10 mg oral capsule (1 source) alpha-Adrenergic Samir Start: 07-15-2023 take 10 mg by mouth once daily Terazosin Active 10 MG PO Daily July 15, 2023 12:00am ubidecarenone 100 mg oral capsule (1 source) Start: 07-15-2023 Coenzyme Q10 (Co Q-10) 100 mg capsule Active 100 MG PO Daily July 15, 2023 12:00am warfarin sodium 5 mg oral tablet (1 source) Vitamin K Antagonist Start: 07-15-2023 take 5 mg by mouth once daily Warfarin Active 5 MG PO Daily July 15, 2023 12:00am Problems Active Problems Problem Classification Problem Date Documented Date Episodic/Chronic Osteoarthritis (2 sources) Primary coxarthrosis, bilateral; Translations: [Bilateral primary osteoarthritis of hip] 07-15-2023 Chronic Other aftercare (4 sources) manager 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; Translations: [CARE HOME CURRNT USE ANTICOAGULANTS] Onset: 07-17-2022 Episodic Other lower respiratory disease (4 sources) Pulmonary fibrosis, unspecified; Translations: [PULMONARY FIBROSIS UNSPECIFIED] Onset: 11-27-2021 Chronic Other non-traumatic joint disorders (1 source) Hip pain; Translations: [Pain in right hip] 07-13-2023 Episodic Other non-traumatic joint disorders (1 source) Pain in right hip; Translations: [Pain in right hip] Onset: 07-15-2023 Episodic Other non-traumatic joint disorders (1 source) Pain in left hip; Translations: [Pain in left hip] Onset: 07-15-2023 Episodic Spondylosis; intervertebral disc disorders; other back problems (3 sources) Spinal stenosis; Translations: [Spinal stenosis, site unspecified] Onset: 07-23-2023 07-15-2023 Episodic Substance-related disorders (1 source) Nicotine dependence, cigarettes, [...] Test Name Value Interpretation Reference Range Facility MR lumbar spine wo conon MR lumbar spine wo con [facility] [place] [address] MRI Report Signed Patient: Bill Allen MR#: [id number] 36 : 1950 Acct:[id number] Age/Sex: 72 / M ADM Date: 07/23/23 Loc: MR Room: Type: [facility] Attending Dr: Stanley Gregory II, MD Copies to: Stanley Greogry MD Ordering Provider: Stanley Gregory MD Date of Service: 07/23/23 MR/MR lumbar spine wo con: M48.00 MR lumbar spine wo con 07/23/2023 10:06 AM SIGNS AND SYMPTOMS: Right hip and low back pain PROTOCOL: Multiplanar multisequence MR images of the lumbar spine were obtained without IV contrast COMPARISON: None. FINDINGS: The bones of the lumbar spine are in anatomic alignment. 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 There is preservation of vertebral body heights. There is mild disc height loss at T12- L1, L1-L2, and L5-S1. The marrow signal is within normal limits. The conus terminates at the superior endplate of the L1 vertebral body level. No epidural or paraspinous fluid collection is appreciated. There is a simple cyst in the left renal cortex requiring no further follow-up. At T12-L1: There is a normal disc, central canal, and neural foramen. At L1-L2: There is a broad-based disc bulge. There is facet hypertrophy. There is mild spinal canal narrowing with mild to moderate bilateral neural foraminal narrowing. At L2-L3: There is a circumferential disc bulge with facet and ligament flavum degenerative change. Facet effusions are present. There is an internal synovial cyst arising from the left facet measuring 5 mm in greatest dimension. There is moderate spinal canal narrowing with mild bilateral neural foraminal stenosis. At L3-L4: There is a circumferential disc bulge with facet hypertrophy and ligamentum flavum thickening. There is moderate spinal canal narrowing with mild bilateral neural foraminal narrowing. At L4-L5: There is a circumferential disc bulge with facet hypertrophy and ligamentum flavum thickening. There is moderate to severe narrowing of the spinal canal. There is mild left and moderate right neural foraminal stenosis. At L5-S1: There is a broad-based disc bulge with facet hypertrophy and ligamentum flavum thickening. There is no significant spinal canal stenosis. There is mild to moderate bilateral neural fo raminal narrowing. MR/MR lumbar spine wo con IMPRESSION: Congenitally short pedicles are noted with baseline narrowing of the spinal canal measuring approximately 8 mm in anterior posterior dimension. At L2-L3: There is a circumferential disc bulge with facet and ligament flavum degenerative change. Facet effusions are present. There is an internal synovial cyst arising from the left facet measuring 5 mm in greatest dimension. There is moderate spinal canal narrowing with mild bilateral neural foraminal stenosis. At L3-L4: There is a circumferential disc bulge with facet hypertrophy and ligamentum flavum thickening. There is moderate spinal canal narrowing with mild bilateral neural foraminal narrowing. At L4-L5: There is a circumferential disc bulge with facet hypertrophy and ligamentum flavum thickening. There is moderate to severe narrowing of the spinal canal. There is mild left and moderate right neural foraminal stenosis. At L5-S1: There is a broad-based disc bulge with facet hypertrophy and ligamentum flavum thickening. There is no significant spinal canal stenosis. There is mild to moderate bilateral neural foraminal narrowing. Impression dictated by: Leland Murillo M.D.07/23/2023 3:18 PM Dictation Location: RADIO-PC-14 Transcribed By: ANGIE 07/23/23 1518 Dictated By: Leland Murillo II, MD 07/23/231510 Signed By: 07/23/23 151 Normal [facility] XR hip BI w [id number] 07-15-19 XR hip BI w PEL1V [facility] [address] [place] [address] XRay Report Signed Patient: Bill Allen MR#: [id number] [birth year] : 1950 Acct:[id number] Age/Sex: 72 / M ADM Date: 07/15/23 [place] [facility] [place]: Type: [facility] Attending Dr: Stanley Gregory II, MD Copies to: Stanley Gregory MD Ordering Provider: Stanley Gregory MD Date of Service: 07/15/23 XR/XR hip BI w PEL1V: M25.551 - Pain in right hip 2 views both hips with single view pelvis plain film COMPARISON: None HISTORY: Bilateral hip pain for months ACUTE FINDINGS: None DEGENERATIVE CHANGE: Marginal spurring with mild to moderate joint space narrowing. Preserved bony articular surfaces. No AVN. Mild SI joint degeneration. SOFT TISSUE FINDINGS: Atherosclerosis. JOINT EFFUSION: None POSTOP CHANGES: None BONY MINERALIZATION: Adequate XR/XR hip BI w PEL1V IMPRESSION: Moderate bilateral hip degeneration. Impression dictated by: Irving Saldivar M.D.07/15/2023 10:09 AM Dictation Location: RADIO-PC-12 Transcribed By: [facility] 07/15/23 1009 Dictated By: Irving Saldivar DO 07/15/23 100 Signed By: 07/15/23 100 Normal [facility] XR lumbar spine AP/LAT/FLX/E XTon 07-15-2023 XR lumbar spine AP/LAT/FLX/EXT [facility] [address] [place] [place] [address] XRay Report Signed Patient: Bill Allen MR#: [id number] [birth year] : 1950 Acct:[id number] Age/Sex: 72 / M ADM Date: 07/15/23 [place] [facility] [place]: Type: [facility] Attending Dr: Stanley Gregory II, MD Copies to: Stanley Gregory MD Ordering Provider: Stanley Gregory MD Date of Service: 07/15/23 XR/XR lumbar spine AP/LAT/FLX/EXT: M25.551 - Pain in right hip LUMBAR SPINE WITH FLEXION AND EXTENSION VIEWS - 4 views COMPARISON: None CLINICAL DATA: Low back and bilateral hip pain posteriorly for months. No injury. Standing AP as well as lateral views in neutral, flexion and extension were obtained. No acute fractures are identified. There is minimal retrolisthesis of L1 on L2. Alignment does not change significantly with flexion or extension. There is minimal disc space narrowing at L4-5 and mild at the lumbosacral junction. There is endplate spurring throughout. There is also prominent mid and lower lumbar facet hypertrophy. The SI joints are intact and there is mild sclerosis and possible ankylosis proximally. There are prominent enthesophytes at the iliac crest. There is atherosclerotic plaque at the aorta and the iliac arteries. XR/XR lumbar spine AP/LAT/FLX/EXT IMPRESSION: DEGENERATIVE CHANGES, DESCRIBED. Impression dictated by: Vicky Hill M.D.07/15/2023 1:59 PM Dictation Location: [facility]- Transcribed By: [facility] 07/15/23 1355 Dictated By: Vicky Hill MD 07/15/23 1357 Signed By: 07/15/23 1359 Normal [facility] PROTIMEon 07-17-2022 INR Coag (PPP) [Relative time] 2.75 {INR} Normal [facility] Comment on above: Performed By: #### PT #### [facility] [address] [place] [address] Dr. Roya Martin INR GUIDELINES SEE BELOW Normal [facility] Comment on above: Result Comment: DESIRED INR: 2.0 - 3.0 C ONDITIONS NOT LISTED BELOW 2.5 - 3.5 FOR PROSTHETIC HEART VALVE REPLACEMENT 2.5 - 3.5 RECURRENT THROMBOSIS Performed By: #### P T #### [facility] [address] [place] [address] Dr. Roya Martin PT Coag (PPP) [Time] 27.5 s Critically high 9.0-11.6 [facility] Comment on above: Performed By: #### PT #### [facility] [address] [place] [address] Dr. Roya Martin PROTIMEon 06-04-2022 INR Coag (PPP) [Relative time] 2.97 {INR} Normal [facility] Comment on above: Performed By: #### PT #### [facility] [address] [place] [address] Dr. Roya Martin INR GUIDELINES SEE BELOW Normal [facility] Comment on above: Result Comment: DESIRED INR: 2.0 - 3.0 C ONDITIONS NOT LISTED BELOW 2.5 - 3.5 FOR PROSTHETIC HEART VALVE REPLACEMENT 2.5 - 3.5 RECURRENT THROMBOSIS Performed By: #### P T #### [facility] [address] [place] [address] Dr. Roya Martin PT Coag (PPP) [Time] 29.6 s Critically high 9.0-11.6 [facility] Comment on above: Performed By: #### PT #### [facility] [address] [place] [address] Dr. Roya Martin PROTIMEon 04-03-2022 INR Coag (PPP) [Relative time] 3.40 {INR} Normal [facility] Comment on above: Performed By: #### PT #### [facility] [address] [place] [address] Dr. Roya Martin INR GUIDELINES SEE BELOW Normal [facility] Comment on above: Result Comment: DESIRED INR: 2.0 - 3.0 C ONDITIONS NOT LISTED BELOW 2.5 - 3.5 FOR PROSTHETIC HEART VALVE REPLACEMENT 2.5 - 3.5 RECURRENT THROMBOSIS Performed By: #### P T #### [facility] [address] [place] [address] Dr. Roya Martin PT Coag (PPP) [Time] 33.6 s Critically high 9.0-11.6 [facility] Comment on above: Performed By: #### PT #### [facility] [address] [place] [address] Dr. Roya Martin PROTIMEon 01-06-2022 INR Coag (PPP) [Relative time] 2.45 {INR} Normal [facility] Comment on above: Performed By: #### PT #### [facility] [address] [place] [address] Dr. Roya Martin INR GUIDELINES SEE BELOW Normal [facility] Comment on above: Result Comment: DESIRED INR: 2.0 - 3.0 C ONDITIONS NOT LISTED BELOW 2.5 - 3.5 FOR PROSTHETIC HEART VALVE REPLACEMENT 2.5 - 3.5 RECURRENT THROMBOSIS Performed By: #### P T #### [facility] [address] [place] [address] Dr. Roya Martin PT Coag (PPP) [Time] 25.0 s Critically high 9.0-11.6 [facility] Comment on above: Performed By: #### PT #### [facility] [address] [place] [address] CHEST HI RESOLUTIONon [...] KELY TAYLOR Date: 2021-11-27 08:56 Normal [facility] HEMOGLOBINon 11-27-2021 Hemoglobin (Bld) [Mass/Vol] 15.4 g/dL Normal 14.0-18.0 [facility] Comment on above: Performed By: #### HGB #### [facility] [address] [place] [address] Dr. Roya Martin PROTIMEon 11-14-2021 INR Coag (PPP) [Relative time] 2.28 {INR} Normal [facility] Comment on above: Performed By: #### PT #### [facility] [address] [place] [address] Dr. Roya Martin INR GUIDELINES SEE BELOW Normal [facility] Comment on above: Result Comment: DESIRED INR: 2.0 - 3.0 C ONDITIONS NOT LISTED BELOW 2.5 - 3.5 FOR PROSTHETIC HEART VALVE REPLACEMENT 2.5 - 3.5 RECURRENT THROMBOSIS Performed By: #### P T #### [facility] [address] [place] [address] Dr. Roya Martin PT Coag (PPP) [Time] 23.3 s Critically high 9.0-11.6 [facility] Comment on above: Performed By: #### PT #### [facility] [address] [place] [address] Dr. Roya Martin PROTIMEon 09-09-2021 INR Coag (PPP) [Relative time] 2.70 {INR} Normal [facility] Comment on above: Performed By: #### PT #### [facility] [address] [place] [address] Dr. Roya Martin INR GUIDELINES SEE BELOW Normal [facility] Comment on above: Result Comment: DESIRED INR: 2.0 - 3.0 C ONDITIONS NOT LISTED BELOW 2.5 - 3.5 FOR PROSTHETIC HEART VALVE REPLACEMENT 2.5 - 3.5 RECURRENT THROMBOSIS Performed By: #### P T #### [facility] [address] [address] [address] Roya Martin PT Coag (PPP) [Time] 27.3 s Critically high 9.0-11.6 [facility] Comment on above: Performed By: #### PT #### [facility] [address] [address] [address] Roya BYRDOVon 04-16-2017 CNOV Office Visit (CARDFT) BILL PELAEZ ([id number]) 1950 MDate Time Provider Department04/16/17 11:30 AM CHARBEL ZUÑIGA During your visit today, we recorded the following information about you: Pulse Respiration Blood pressure Weight 72/minute 18/minute 125/74 99.3 kg Height 1.778 Aurea Zuñiga MD 04/16/2017 11:49 AM [facility] Department of Cardiovascular MedicineOUTPATIENT VISIT DATE04/16/17OUTPATIENT VISIT TYPEEstablishedPRIMARY CARE PHYSICIAN:Reyes Bolanos, [id number] [facility] [address]Vtfnd: [phone]: [phone] COMPLAINT:PalpitationsHISTORY OF PRESENT ILLNESS: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 [...] 99.3 kg (219lb) SpO2 98% BMI 31.42 kg/v3Tavprpk: Well appearing, in no acute distress. ObeseNeuro: [...] 01/08/16 [facility] [facility] stage 1 diast[facility], no [id number] day monitor 02/14/16inus, rare PACs, frequent PVCs [...] with further questions or concerns.Charbel Zuñiga M.D.Joel Hartmannment of Cardiovascular MedicineHonorhealth [facility] [address]Cscofs: [phone] Referring Provider: REYES BOLANOS [[id number]]Allergies As of Date: 04/16/2017(No Known Allergies)Date Reviewed: 04/16/2017Reviewed by: Kelly Gamboa) MAHNAZ Huitron - Fully AssessedPrimary Visit Diagnosis:Essential [...] RN 04/16/2017 11:29 AM >> KELLY HUITRON [facility] Apr 16, 2017 11:29 AM Received from: External Pharmacy >> Jayden Kolb RN 04/16/2017 11:29 AM >> KELLY HUITRON [facility] Apr 16, 2017 11:29 AM LISINOPRIL 10 MG TABLET >> Jayden Kolb RN 04/16/2017 11:29 AM >> KELLY HUITRON [facility] Apr 16, 2017 11:29 AM Received from: External Pharmacy >> Jayden Kolb RN 04/16/2017 11:29 AM >> KELLY HUITRON [facility] Apr 16, 2017 11:29 AMProblem List As Of Date: 04/16/2017(None)Medications Discontinued During This Encounter losartan-hydrochlorothiazide (HYZAAR* 90 t* 3 04/16/2016 04/16/2017 Route: ORAL Sig: Take 1 tablet by mouth once daily. Disc: Erroneous entryDisposition: Return if symptoms worsen or fail to improve.Follow-up and Disposition History RecordedEncounter Number: [id number] Status:Closed by CHARBEL ZUÑIGA MD on 04/16/17 [facility] PROGRESSon 04-13-2017 PROGRESS HNO ID: [id number] thor: Charbel ZuñigaSer: (none)Author Type: PhysicianType: Progress NotesFiled: 04/16/2017 11:49 AMNote Text:[facility] InstituteCaldwell [facility] Centersilvana and [facility] Department of Cardiovascular MedicineOUTPATIENT VISIT DATE04/16/17OUTPATIENT VISIT TYPEEstablatrium health unionPRDCH REG[facility] CARE PHYSICIAN:Reyes Bolanos, [id number] [facility] [address]Dxina: [phone]: [phone] COMPLAINT:PalpitationsHISTORY OF PRESENT ILLNESS: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 [...] 99.3 kg (219lb) SpO2 98% BMI 31.42 kg/e2Xpmtavu: Well appearing, in no acute distress. ObeseNeuro: [...] 01/08/16 [facility], stage 1 diastology, no [id number] day monitor 02/14/16inus, rare PACs, frequent PVCs corresponding to palpitationsI have personally reviewed the above Cardiovascular Medicine Testing.IMPRESSION/PLAN:Bill Allen is a 66 year old male with history of frequent PVCs, DVT,HTN here to follow-upFrequent PVCs: Asymptomatic. Very functional and active. Will continuebeta samir at current dose without change. No significant [...] M.D.Joel Childs of Cardiovascular MedicineHeart and Vascular InstituteSelect Medical Specialty [facility], [place] [address]Rjtrrw: [phone] Normal [facility] Vital Signs Date Time Vital Sign Value Performing Clinician Clarence arias 07-15-2023 09:14 Body height 175.26 cm MD Dayron Cervantes Work Phone: [facility] 07-15-2023 09: Body mass index (BMI) [Ratio] 33.5 kg/m2 MD Dayron Cervantes Work Phone: [facility] 07-15-2023 09: Body weight 103.02 kg MD Dayron Cervantes Work Phone: [facility] Encounters Encounter Date Encounter Type Care Provider Facility Start: 09-04-2023 End: 09-04-2023 ambulatory DAYRON CERVANTES Not Available Start: 07-23-2023 End: 07-23-2023 ambulatory Stanley Gregory II Facility:[facility] Start: 07-23-2023 End: 07-23-2023 ambulatory MD Dayron Cervantes Work Phone: [facility] Work Phone: Start: 07-23-2023 End: 07-23-2023 Patient encounter procedure MD Dayron Cervantes Work Phone: [facility] [place] Work Phone: Start: 07-15-2023 End: 07-15-2023 ambulatory Stanley Gregory II Facility:[facility] Start: 07-15-2023 End: 07-15-2023 Patient encounter procedure MD Dayron Cervantes Work Phone: [facility] Work Phone: Start: 03-04-2023 End: 03-04-2023 ambulatory DAYRON CERVANTES Not Available Start: 07-17-2022 End: 07-18-[address] DAYRON CERVANTES Facility:[facility] Start: 06-04-2022 End: 06-05-[address] DAYRON CERVANTES Facility:[facility] Start: 04-03-2022 End: 04-04-[address] DAYRON CERVANTES Facility:[facility] Start: 01-06-2022 End: 01-13-[address] DAYRON CERVANTES Facility:[facility] Start: 11-27-2021 End: 11-28-2021 ambulatory OUSMANE ORNELAS . Facility:[facility] Start: 11-14-2021 End: 12-14-[address] DAYRON CERVANTES Facility:[facility] Start: 09-09-2021 End: 09-13-[address] DAYRON CERVANTES Facility:[facility] Start: 04-16-2017 End: 04-22-2017 Ambulatory CHARBEL ZUÑIGA [facility] Procedures Date Procedure Procedure Detail Performing Clinician Start: 07-23-2023 MR lumbar spine wo con MD Dayron Cervantes Work Phone: Start: 07-15-2023 X-ray of lumbar spin e, four views MD Dayron Cervantes Work Phone: Start: 07-15-2023 Plain x-ray of pelvi s and lower extremity MD Dayron Cervantes Work Phone: Payers Date Payer Category Payer Self-pay 1959 Medicare [id number] 1959 Unknown [id number] 1950 Unknown [id number] 2.16.84 [id number] 1950 Unknown [id number] 2.16.84 [id number] 1950 Unknown [id number] 2.16.84 [id number] 1950 Unknown [id number] 2.16.84 [id number] 1950 Unknown [id number] 2.16.84 [id number] 1950 Unknown [id number] 2.16.84 [id number] 1950 Unknown [id number] 2.16.84 [id number] 1950 Unknown [id number] 2.16.84 [id number] 1950 Unknown [id number] 2.16.840 .[id number] Unknown [id number] 2.16.8 [id number] Unknown [id number] 2.16.8 [id number] Social History Date Type Detail Facility [facility] Work Phone: Start: 1950 Sex Assigned At Male F [facility] Evaluation note Note Date & Type Note Facility Evaluation note Diagnosis Onset Date Bilateral primary osteoarthritis of hip acute Spinal stenosis acute [facility] Work Phone: Summary Purpose Family History No Family History Records FoundNo Family History Records FoundNo Family History Records FoundNo Family History Records Found Advance Directives No Advanced Directives Records Found Advance Directive Response Recorded Date/ Time Advance Directives No June 16 4:32pm Chief Complaint and Reason for Visit Chief Complaint [place] [facility] PA[facility] NX M25.551 - Pain in right hip M48.00 Reason for Visit Bilateral primary os teoarthritis of hip Spinal stenosis Additional Source Comments (unrecognized sect ion and content) No Status Records FoundNo Status Records FoundNo Status Records FoundNo Status Records Found INFORMATION SOURCE (unrecogn ized section and content) DATE CREATED AUTHOR 09/07/2017 [facility] DATE CREATED AUTHOR AUTHOR'S ORGANIZ ATION 07/24/2022 [facility] DATE CREATED AUTHOR AUTHOR'S ORGANIZ ATION 08/04/2023 [facility] DATE CREATED AUTHOR AUTHOR'S ORGANIZ ATION 09/05/2023 [facility] EPIC Care Teams (unrecognized sec tion and content) Team Status: Active Member Role Status Dates Dayron Cervantes MD Primary Care Provider Active Team Status: Inactive Member Role Status Dates Stanley Gregory II, MD Attending Provider Active Start: July 15, 2023 End: July 15, 2023 Dayron Cervantes MD Primary Care Provider Active S tart: July 15, 2023 End: July 15, 2023 Team Status: Inactive Member Role Status Dates Dayron Cervantes MD Primary Care Provider Active S tart: July 15, 2023 End: July 15, 2023 Stanley Gregory II, MD Attending Provider Active Start: July 15, 2023 End: July 15, 2023 Team Status: Inactive Member Role Status Dates Dayron Cervantes MD Primary Care Provider Active S tart: July 23, 2023 End: July 23, 2023 Stanley Gregory II, MD Attending Provider Active Start: July 23, 2023 End: July 23, 2023 Goals (unrecognized section and content) Goals may be documented in a n alternate section FOR RECORDS PERTAINING TO PATIENTS WHO ARE [...] BE BASED ON THE PRIMARY CLINICAL RECORDS. [facility] [facility]. provides no warranty or guarantee of the accuracy or completeness of information in this document.
[2023-09-18 12:44] LABS: Basophils Absolute Auto 0.1 10^3/uL (0.0-0.1); Basophils Percent Auto 0.6 % (0.2-2.0); Eosinophils Absolute Auto 0.2 10^3/uL (0.0-0.7); Eosinophils Percent Auto 1.7 % (0.9-7.0); Hematocrit 47.2 % (42.0-54.0); Hemoglobin 15.9 g/dL (14.0-18.0); Immature Granulocytes Abs Auto 0.04 10^3/uL (0.00-0.03); Immature Granulocytes Pct Auto 0.4 % (0.0-0.5); Lymphocytes Absolute Auto 2.3 10^3/uL (1.2-3.8); Mean Corpuscular HGB Conc 33.7 g/dL (29.9-35.2); Mean Platelet Volume 9.2 fL (9.5-13.5); Monocytes Absolute Auto 0.7 10^3/uL (0.3-0.8); Monocytes Percent Auto 6.4 % (1.7-12.0); Neutrophils Absolute Auto 7.6 10^3/uL (1.4-6.5); Neutrophils Percent Auto 69.9 % (43.0-75.0); Platelet Count 206 10^3/uL (150-450); Red Blood Count 5.49 10^6/uL (4.70-6.10); Red Cell Distribution Width 12.4 % (11.0-15.0); White Blood Count 10.8 10^3/uL (4.0-11.0)
[2023-09-18 12:53] LABS: Estimated Average Glucose 120 mg/dL; Glycohemoglobin A1C 5.8 % (4.5-6.2)
[2023-09-18 14:04] LABS: Alanine Aminotransferase 32 U/L (16-63); Albumin Level 3.8 g/dL (3.4-5.0); Alkaline Phosphatase 96 U/L (46-116); Anion Gap 9.6; Aspartate Amino Transferase 21 U/L (15-37); BUN Creatinine Ratio 14.8; Bilirubin Direct 0.1 mg/dL (0.0-0.2); Bilirubin Total 0.6 mg/dL (0.2-1.0); Calcium 9.1 mg/dL (8.5-10.1); Carbon Dioxide 28.2 mmol/L (21.0-32.0); Chloride 105 mmol/L (98-107); Chol HDL Ratio 4.3; Cholesterol 155 mg/dL (<=200); Estimated GFR (African America >60 (>=60); Estimated GFR (Non-African Ame >60 (>=60); Globulin 3.8 g/dL; Glucose 107 mg/dL (74-106); HDL Cholesterol 36 mg/dL (40-60); Potassium 3.8 mmol/L (3.5-5.1); Prostate Specific Antigen Dx 1.29 ng/mL (<=4.00); Sodium 139 mmol/L (136-145); Thyroid Stimulating Hormone 1.724 uIU/mL (0.358-3.740); Total Protein 7.6 g/dL (6.4-8.2); Triglycerides 182 mg/dL (<=150); VLDL CHOLESTEROL 36.4 mg/dL
== END 2023-09-18 12:33 | disposition home or self-care (01) ==
LOC: LAB 12:34
PROVIDERS: PCP Family Medicine; Visit Provider Family Medicine
DX: E55.9 Vitamin D deficiency, unspecified (principal); I10 Essential (primary) hypertension; R73.03 Prediabetes; Z79.899 Other long term (current) drug therapy; E78.5 Hyperlipidemia, unspecified; Z12.5 Encounter for screening for malignant neoplasm of prostate; E66.9 Obesity, unspecified
CPT/HCPCS: 36415; 80048; 80061; 80076; 82306; 83036; 84153; 84443; 85025

== ENCOUNTER 2023-11-05 11:33 | Outpatient (OUT) | payer MEDICARE, OTHER, SELFPAY ==
--- OUTSIDE RECORDS SUMMARY | 2023-11-05 11:39 | XMS_ITS | CCD ---
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 Name Role Phone CHARBEL ZUÑIGA Unavailable Unavailable [...] DR DAYRON Mckinney Admitting Unavailable NADERER, DR ADYRON Mckinney Attending Unavailable NADERER, DR DAYRON Mckinney Primary Care Unavailable NADERER, DR DAYRON Mckinney Consulting Unavailable NADERER, DR DAYRON Mckinney Admitting Unavailable NADERER, DR DAYRON Mckinney Attending Unavailable NADERER, DR DAYRON Mckinney Primary Care Unavailable NADERER, DR DAYRON Mckinney Consulting Unavailable NADERER, DR DAYRON Mckinney Admitting Unavailable NADERER, DR DAYRON Mckinney Attending Unavailable SAMSA ., OUSMANE Admitting Unavailable LOVEJOY, DR KELY Rae Consulting Unavailable SAMSA ., OUSMANE Attending Unavailable NADERER, DR DAYRON Mckinney Primary Care Unavailable SAMSA ., OUSMANE Consulting Unavailable MD Dayron Cervantes Primary Care Provider [phone] MD Stanley Gregory II Attending Provider MD Sonido Blackburn Attending Provider Sonido Blackburn Admitting Unavailable Jhon, Dayron Primary Care Unavailable Sonido Blackburn Attending Unavailable Jhon, Dayron Primary Care Unavailable Stanley Gregory II Attending UnavailStanley Gaffney II Admitting UnavailDayron Kuhn Primary Care Unavailable Stanley Gregory II Attending UnavailStanley Gaffney II Admitting UnavailDAYRON Kuhn Attending Unavailable ROSE MARIE MOSQUEDA Attending Unavailable SONIDO BLACKBURN Referring Unavailable ROSE MARIE MOSQUEDA Attending Unavailable SONIDO BLACKBURN Referring Unavailable DAYRON CERVANTES Attending Unavailable KELY GARZA Referring Unavailable DAYRON CERVANTES Primary Care Unavailable KELY GARZA Attending Unavailable KELY GARZA Referring Unavailable DAYRON CERVANTES Primary Care Unavailable JOANNA FREITAS Admitting Unavailable JOANNA FREITAS Attending Unavailable JOANNA FREITAS Referring Unavailable VALENTINE GOMEZ Attending Unavailable DAYRON CERVANTES Primary Care Unavailable Medications Current Medications Medication Drug Class(es) Dates Sig (Normalized) Sig (Original) Cholecalciferol (2 sources) Vitamin D Start: 07-15-2023 Cholecalciferol (Vitamin D3) Active MCG PO July 15, 2023 12:00am glucosamine sulfate 1000 mg oral capsule (2 sources) Start: 07-15-2023 take 1000 mg by mouth twice daily at mealtime Glucosamine Sulfate Active 1000 MG PO Twice daily July 15, 2023 12:00am administer with meals lisinopril 10 mg oral tablet (2 sources) Angiotensin Converting Enzyme Inhibitor Start: 07-15-2023 take 10 mg by mouth once daily Lisinopril Active 10 MG PO Daily July 15, 2023 12:00am Medical marijuana (2 sources) Start: 07-15-2023 Medical marijuana Active PO July 15, 2023 12:00am Metoprolol (2 sources) beta-Adrenergic Samir Start: 07-15-2023 Metoprolol Tartrate Active MG PO July 15, 2023 12:00am Multivitamin preparation (2 sources) Start: 07-15-2023 take 1 tablet by mouth once daily Multivitamin Active 1 TAB PO Daily July 15, 2023 12:00am simvastatin 20 mg oral tablet (2 sources) HMG-CoA Reductase Inhibitor Start: 07-15-2023 take 20 mg by mouth once daily Simvastatin Active 20 MG PO Daily July 15, 2023 12:00am terazosin 10 mg oral capsule (2 sources) alpha-Adrenergic Samir Start: 07-15-2023 take 10 mg by mouth once daily Terazosin Active 10 MG PO Daily July 15, 2023 12:00am ubidecarenone 100 mg oral capsule (2 sources) Start: 07-15-2023 Coenzyme Q10 (Co Q-10) 100 mg capsule Active 100 MG PO Daily July 15, 2023 12:00am warfarin sodium 5 mg oral tablet (2 sources) Vitamin K Antagonist Start: 07-15-2023 take 5 mg by mouth once daily Warfarin Active 5 MG PO Daily July 15, 2023 12:00am Problems Active Problems Problem Classification Problem Date Documented Date Episodic/Chronic Osteoarthritis (4 sources) Primary coxarthrosis, bilateral; Translations: [Bilateral primary osteoarthritis of hip] 07-15-2023 Chronic Other aftercare (5 sources) [facility] (current) use of 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; Translations: [WOMEN'S STUDIES LECTURER CURRNT USE ANTICOAGULANTS] Onset: 07-17-2022 Episodic Other lower respiratory disease (4 sources) Pulmonary fibrosis, unspecified; Translations: [PULMONARY FIBROSIS UNSPECIFIED] Onset: 11-27-2021 Chronic Other non-traumatic joint disorders (2 sources) Hip pain; Translations: [Pain in right hip] 07-13-2023 Episodic Other non-traumatic joint disorders (1 source) Pain in right hip; Translations: [Pain in right hip] Onset: 07-15-2023 Episodic Other non-traumatic joint disorders (1 source) Pain in left hip; Translations: [Pain in left hip] Onset: 07-15-2023 Episodic Spondylosis; intervertebral disc disorders; other back problems (5 sources) Spinal stenosis; Translations: [Spinal stenosis, site unspecified] Onset: 07-23-2023 07-15-2023 Episodic Substance-related disorders (1 source) Nicotine dependence, cigarettes, uncomplicated; Translations: [NICOTINE DEPEND CIGARETTES UNCOMP] Onset: 12-01-2021 Chronic Unclassified (1 source) Low back pain, unspecified; Translations: [Low back pain, unspecified] Onset: 09-18-2023 Unclassified (1 source) bilateral ptosis Onset: 10-20-2023 Past or Other Problems Problem Classification Problem Date Documented Da te Episodic/Chronic Other aftercare (1 source) Encounter for follow-up examination after completed treatment for conditions other than malignant neoplasm; Translations: [Encounter for follow-up examination after completed treatment for conditions other than malignant neoplasm] Onset: 04-16-2017 Episodic Results Test Name Value Interpretation Reference Range Facility XR lumbar spine 6V w bending on 09-18-2023 XR lumbar spine 6V w bending [facility] Main [address] [address] XRay Report Signed Patient: Bill Allen MR#: [id number] [birth year] : 1950 Acct:[id number] Age/Sex: 73 / M ADM Date: 09/18/23 Loc: XD Room: Type: REG CLI Attending Dr: Sonido Blackburn MD Copies to: Sonido Blackburn MD Ordering Provider: Sonido Blackburn MD Date of Service: 09/18/23 XR/XR lumbar spine 6V w bending: M54.50 - Low back pain, unspecified LUMBAR SPINE - 6 views CLINICAL HISTORY: Low back pain for months. COMPARISON: Lumbar spine 07/15/2023 FINDINGS: Vertebral body heights appear maintained. Scattered endplate and facet joint degenerative changes without significant disc height loss. No pathological motion on flexion or extension views. Limited sidebending. SI joints demonstrate degenerative change. XR/XR lumbar spine 6V w bending IMPRESSION: PREDOMINANTLY ENDPLATE AND FACET JOINT DEGENERATIVE CHANGES WITHOUT SIGNIFICANT DISC HEIGHT LOSS. Impression dictated by: Guille Encinas Jr., D.O.09/18/2023 3:18 PM Dictation Location: [place] [address] Transcribed By: [facility] 09/18/23 1518 Dictated By: Guille Encinas Jr, DO 09/18/23 1517 Signed By: 09/18/23 1518 Normal [facility] MR lumbar spine wo conon MR lumbar spine wo con [facility] Main [address] [address] MRI Report Signed Patient: Bill Allen MR#: [id number] [birth year] : 1950 Acct:[id number] Age/Sex: 72 / M ADM Date: 07/23/23 Loc: MR Room: Type: REG CLI Attending Dr: Stanley Gregory II, MD Copies [...] Leland Murillo M.D.07/23/2023 3:18 PM Dictation Location: RADIO--14 Transcribed By: [facility] 07/23/231517 Dictated By: Leland Murillo II, MD 07/23/231510 Signed By: 07/23/231517 Normal [facility] XR hip BI w [id number] 07-15-19 XR hip BI w [id number] [facility] [address] [place] [address] XRay Report Signed Patient: Bill Allen MR#: [id number] [birth year] : 1950 Acct:[id number] Age/Sex: 72 / M ADM Date: 07/15/23 Loc: [facility] Room: Type: [facility] Attending Dr: Stanley Gregory II, MD Copies [...] 10:09 AM Dictation Location: RADIO-PC-12 Transcribed By: ANGIE 07/15/23 1009 Dictated By: Irving Saldivar DO 07/15/23 1008 Signed By: 07/15/23 1009 Normal [facility] XR lumbar spine AP/LAT/FLX/E XTon 07-15-2023 XR lumbar spine AP/LAT/FLX/EXT [facility] [address] [place] [address] XRay Report Signed Patient: Bill Allen MR#: [id number] [birth year] : 1950 Acct:[id number] Age/Sex: 72 / M ADM Date: 07/15/23 Loc: [facility] Room: Type: [facility] Attending Dr: Stanley Gregory II, MD Copies [...] Vicky Hill M.D.07/15/2023 1:59 PM Dictation Location: [facility] Transcribed By: ANGIE 07/15/23 1359 Dictated By: Vicky Hill MD 07/15/23 1357 Signed By: 07/15/23 135 Normal [facility] PROTIMEon 07-17-2022 INR Coag (PPP) [Relative time] 2.75 {INR} Normal [facility] Comment on above: Performed By: #### PT #### [facility] [address] [place] [address] Dr. Roya Martin INR GUIDELINES SEE BELOW Normal [facility] Comment on above: Result Comment: DESIRED INR: 2.0 - 3.0 C ONDITIONS NOT LISTED BELOW 2.5 - 3.5 FOR PROSTHETIC HEART VALVE REPLACEMENT 2.5 - 3.5 RECURRENT THROMBOSIS Performed By: #### P T #### [facility] [address] [place] [address] Dr. Roya Martin PT Coag (PPP) [Time] 27.5 s Critically high 9.0-11.6 [facility] Comment on above: Performed By: #### PT #### [facility] [address] [place] [address] Dr. Roya Martin PROTIMEon 06-04-2022 INR Coag (PPP) [Relative time] 2.97 {INR} Normal [facility] Comment on above: Performed By: #### PT #### [facility] [address] [place] [address] Dr. Roya Martin INR GUIDELINES SEE BELOW Normal [facility] Comment on above: Result Comment: DESIRED INR: 2.0 - 3.0 C ONDITIONS NOT LISTED BELOW 2.5 - 3.5 FOR PROSTHETIC HEART VALVE REPLACEMENT 2.5 - 3.5 RECURRENT THROMBOSIS Performed By: #### P T #### [facility] [address] [place] [address] Dr. Roya Martin PT Coag (PPP) [Time] 29.6 s Critically high 9.0-11.6 [facility] Comment on above: Performed By: #### PT #### [facility] [address] [place] [address] Dr. Roya Martin PROTIMEon 04-03-2022 INR Coag (PPP) [Relative time] 3.40 {INR} Normal [facility] Comment on above: Performed By: #### PT #### [facility] [address] [place] [address] Dr. Roya Martin INR GUIDELINES SEE BELOW Normal [facility] Comment on above: Result Comment: DESIRED INR: 2.0 - 3.0 C ONDITIONS NOT LISTED BELOW 2.5 - 3.5 FOR PROSTHETIC HEART VALVE REPLACEMENT 2.5 - 3.5 RECURRENT THROMBOSIS Performed By: #### P T #### [facility] [address] [place] [address] Dr. Roya Martin PT Coag (PPP) [Time] 33.6 s Critically high 9.0-11.6 [facility] Comment on above: Performed By: #### PT #### [facility] [address] [place] [address] Dr. Roya Martin PROTIMEon 01-06-2022 INR Coag (PPP) [Relative time] 2.45 {INR} Normal [facility] Comment on above: Performed By: #### PT #### [facility] [address] [place] [address] Dr. Roya Martin INR GUIDELINES SEE BELOW Normal [facility] Comment on above: Result Comment: DESIRED INR: 2.0 - 3.0 C ONDITIONS NOT LISTED BELOW 2.5 - 3.5 FOR PROSTHETIC HEART VALVE REPLACEMENT 2.5 - 3.5 RECURRENT THROMBOSIS Performed By: #### P T #### [facility] [address] [place] [address] Dr. Roya Martin PT Coag (PPP) [Time] 25.0 s Critically high 9.0-11.6 [facility] Comment on above: Performed By: #### PT #### [facility] [address] [place] [address] CHEST HI RESOLUTIONon [...] KELY TAYLOR Date: 2021-11-27 08:56 Normal [facility] HEMOGLOBINon 11-27-2021 Hemoglobin (Bld) [Mass/Vol] 15.4 g/dL Normal 14.0-18.0 [facility] Comment on above: Performed By: #### HGB #### [facility] [address] [place] [address] Dr. Roya Martin PROTIMEon 11-14-2021 INR Coag (PPP) [Relative time] 2.28 {INR} Normal [facility] Comment on above: Performed By: #### PT #### [facility] [address] [place] [address] Dr. Roya Martin INR GUIDELINES SEE BELOW Normal [facility] Comment on above: Result Comment: DESIRED INR: 2.0 - 3.0 C ONDITIONS NOT LISTED BELOW 2.5 - 3.5 FOR PROSTHETIC HEART VALVE REPLACEMENT 2.5 - 3.5 RECURRENT THROMBOSIS Performed By: #### P T #### [facility] [address] [place] [address] Dr. Roya Martin PT Coag (PPP) [Time] 23.3 s Critically high 9.0-11.6 [facility] Comment on above: Performed By: #### PT #### [facility] [address] [place] [address] Dr. Roya Martin PROTIMEon 09-09-2021 INR Coag (PPP) [Relative time] 2.70 {INR} Normal [facility] Comment on above: Performed By: #### PT #### [facility] [address] [place] [address] Dr. Roya Martin INR GUIDELINES SEE BELOW Normal [facility] Comment on above: Result Comment: DESIRED INR: 2.0 - 3.0 C ONDITIONS NOT LISTED BELOW 2.5 - 3.5 FOR PROSTHETIC HEART VALVE REPLACEMENT 2.5 - 3.5 RECURRENT THROMBOSIS Performed By: #### P T #### [facility] [address] [place], [place] [address] Dr. Roya Martin PT Coag (PPP) [Time] 27.3 s Critically high 9.0-11.6 [facility] Comment on above: Performed By: #### PT #### [facility] [address] [place], [place] [address] Dr. Roya Aguilera 04-16-2017 CNOV Office Visit (CARDFT) BILL PELAEZ ([id number]) 1950 MDate Time Provider Department04/16/17 11:30 AM CHARBEL ZUÑIGA During your visit today, we recorded the following information about you: Pulse Respiration Blood pressure Weight 72/minute 18/minute 125/74 99.3 kg Height 1.778 Aurea Zuñiga MD 04/16/2017 11:49 AM [facility] Department of Cardiovascular MedicineOUTPATIENT VISIT DATE04/16/17OUTPATIENT VISIT TYPEEstablishedPRIMARY CARE PHYSICIAN:Reyes Bolanos, GF6038 [facility] [address]Cwoca: [phone]: [phone] COMPLAINT:PalpitationsHISTORY OF PRESENT ILLNESS: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 [...] 99.3 kg (219lb) SpO2 98% BMI 31.42 kg/c7Bcpzxqj: Well appearing, in no acute distress. ObeseNeuro: [...] 01/08/16 [place] 55, stage 1 diastology, no [id number] day monitor 02/14/16inus, rare PACs, frequent PVCs [...] or concerns.Charbel Zuñiga M.D.Joel Hartmannment of Cardiovascular MedicineBanner Desert Medical Center and Vascular InstituteStephanie Ville [address], [place] [address]Makccx: [phone] Referring Provider: REYES BOLANOS [[id number]]Allergies As of Date: 04/16/2017(No Known Allergies)Date Reviewed: 04/16/2017Reviewed by: Kelly Mckniney (Rn) MAHNAZ Huitron - Fully AssessedPrimary Visit [...] 11:29 AM >> KELLY HUITRON [facility] Apr 16, 2017 11:29 AM Received from: External Pharmacy >> Jayden Kolb RN 04/16/2017 11:29 AM >> KELLY HUITRON [facility] Apr 16, 2017 11:29 AM LISINOPRIL 10 MG TABLET >> Jayden Kolb RN 04/16/2017 11:29 AM >> KELLY HUITRON [facility] Apr 16, 2017 11:29 AM Received [...] to improve.Follow-up and Disposition History RecordedEncounter Number: [id number] Status:Closed by CHARBEL ZUÑIGA MD on 04/16/17 Normal [facility] PROGRESSon 04-13-2017 PROGRESS HNO ID: [id number] thor: Charbel Weeks: (none)Author Type: PhysicianType: Progress NotesFiled: 04/16/2017 11:49 AMNote Text:Heart and Vascular [facility] Department of Cardiovascular MedicineOUTPATIENT VISIT DATE04/16/17OUTPATIENT VISIT TYPEEstablishedPRCOMMUNITY HEALTHRY CARE PHYSICIAN:Reyes Bolanos, GS[address] [facility] [address]Jpjqn: [phone]: [phone] COMPLAINT:PalpitationsHISTORY OF PRESENT ILLNESS: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 [...] 99.3 kg (219lb) SpO2 98% BMI 31.42 kg/c2Qkpblgd: Well appearing, in no acute distress. ObeseNeuro: [...] 01/08/16 [place] 55, stage 1 diastology, no [id number] day monitor 02/14/16inus, rare PACs, frequent PVCs [...] to contact us with further questions or concerns.Basim Garcia of Cardiovascular MedicineOhiohealth Mansfield Hospitalrt and Vascular InstituteDustin Ville [address] [address], [place] [address]Tekmrh: [phone] Normal [facility] Vital Signs Date Time Vital Sign Value Performing Clinician Clarence koromakatty 07-15-2023 09: Body height 175.26 cm MD Dayron Cervantes Work Phone: [facility] 07-15-2023 09: Body mass index (BMI) [Ratio] 33.5 kg/m2 MD Dayron Cervatnes Work Phone: [facility] 07-15-2023 09: Body weight 103.02 kg MD Dayron Cervantes Work Phone: [facility] Encounters Encounter Date Encounter Type Care Provider Facility Start: 10-20-2023 End: 10-20-2023 Evaluation and management of inpatient VALENTINE GOMEZ [facility] Start: 10-20-2023 End: 10-20-2023 Evaluation and management of inpatient JOANNA FREITAS [facility] Start: 10-16-2023 End: 10-16-2023 ambulatory ROSE MARIE MOSQUEDA Not Available Start: 10-01-2023 End: 10-01-2023 ambulatory ROSE MARIE MOSQUEDA Not Available Start: 09-29-2023 End: 09-29-2023 ambulatory KELY Bhavana [facility] Start: 09-29-2023 Encounter for other preprocedural examination KELY [facility] Start: 09-18-2023 End: 09-18-2023 Patient encounter procedure MD Dayron Cervantes Work Phone: [facility] Work Phone: Start: 09-18-2023 End: 09-18-2023 ambulatory MD Dayron Cervantes Work Phone: [facility] Work Phone: Start: 09-04-2023 End: 09-04-2023 ambulatory DAYRON CERVANTES Not Available Start: 07-23-2023 End: 07-23-2023 Patient encounter procedure MD Dayron Cervantes Work Phone: [facility] [place] Work Phone: Start: 07-23-2023 End: 07-23-2023 ambulatory MD Dayron Cervantes Work Phone: [facility] Work Phone: Start: 07-15-2023 End: 07-15-2023 ambulatory Dayron Cervantes Facility:[facility] Start: 07-15-2023 End: 07-15-2023 Patient encounter procedure MD Dayron Cervantes Work Phone: [facility] Work Phone: Start: 03-04-2023 [...] Facility:[facility] Start: 04-16-2017 End: 04-22-2017 [facility] Procedures Date Procedure Procedure Detail Performing Clinician Start: 09-18-2023 X-ray of lumbar spin e, six views including bending views MD Dayron Cervantes Work Phone: Start: 07-23-2023 MR lumbar spine wo con MD Dayron Cervantes Work Phone: Start: 07-15-2023 X-ray of lumbar spin e, four views MD Dayron Cervantes Work Phone: Start: 07-15-2023 Plain x-ray of pelvi s and lower extremity MD Dayron Cervantes Work Phone: Payers Date Payer Category Payer Self-pay 1959 Medicare [id number] 1959 Unknown [id number] 1950 Unknown [id number] 2.16.84 0.1.800531.3.579.2.593 1950 Unknown [id number] 2.16.84 0.1.097320.3.579.2.593 1950 Unknown [id number] 2.16.84 0.1.540122.3.579.2.593 1950 Unknown [id number] 2.16.84 0.1.243538.3.579.2.593 1950 Unknown [id number] 2.16.84 0.1.273799.3.579.2.593 1950 Unknown [id number] 2.16.84 0.1.789496.3.579.2.593 1950 Unknown [id number] 2.16.84 0.1.859895.3.579.2.593 1950 Unknown [id number] 2.16.84 0.1.588481.3.579.2.1259 1950 Unknown [id number] 2.16.84 0.1.447817.3.579.2.1259 1950 Unknown [id number] 2.16.84 0.1.167143.3.579.2.1259 1950 Unknown [id number] 2.16.840 .1.166037.3.579.2.1259 1950 Unknown [id number] 2.16.8 40.1.498442.3.579.2.1286 1950 Unknown [id number] 2.16.8 40.1.282991.3.579.2.1286 1950 Unknown [id number] 2.16.8 40.1.897817.3.579.2.1286 1950 Unknown [id number] 2.16.8 40.1.254505.3.579.2.1286 1950 Unknown [id number] 2.16.8 40.1.874957.3.579.2.1286 Unknown [id number] 2.16.8 40.1.318316.3.579.2.531 Unknown [id number] 2.16.8 40.1.989930.3.579.2.531 Unknown [id number] 2.16.8 40.1.195123.3.579.2.531 Social History Date Type Detail Facility Tobacco smoking stat [facility] Unknown if ever smoked [facility] Work Phone: Start: 1950 Sex Assigned At Male F [facility] Evaluation note Note Date & Type Note Facility Evaluation note Diagnosis Onset Date Bilateral primary osteoarthritis of hip acute Spinal stenosis acute [facility] Work Phone: Summary Purpose Family History [...] primary os teoarthritis of hip Spinal stenosis Chief Complaint [place] HIP PAIN NX M25.551 - Pain in right hip M48.00 M54.50 Reason for Visit Bilateral primary os teoarthritis of hip Spinal stenosis Additional Source Comments (unrecognized sect ion and content) No Status Records FoundNo Status Records FoundNo Status Records FoundNo Status Records FoundNo Status Records Found INFORMATION SOURCE (unrecogn ized section and content) DATE CREATED AUTHOR 09/07/2017 [facility] DATE CREATED AUTHOR AUTHOR'S ORGANIZ ATION 07/24/2022 [facility] DATE CREATED AUTHOR AUTHOR'S ORGANIZ ATION 09/21/2023 [facility] DATE CREATED AUTHOR AUTHOR'S ORGANIZ ATION 10/18/2023 [facility] EPIC DATE CREATED AUTHOR AUTHOR'S ORGANIZ ATION 10/22/2023 [facility] Care Teams (unrecognized sec tion and content) [...] July 23, 2023 End: July 23, 2023 Team Status: Inactive Member Role Status Dates Dayron Cervantes MD Primary Care Provider Active S tart: September 18, 2023 End: September 18, 2023 Sonido Blackburn MD Attending Provider Active Star t: September 18, 2023 End: September 18, 2023 Goals (unrecognized section and content) Goals may be documented in a n alternate sectionGoals may be documented in an alternate section FOR RECORDS PERTAINING TO PATIENTS [...] BE BASED ON THE PRIMARY CLINICAL RECORDS. [facility] [employer] provides no warranty or guarantee of the accuracy or completeness of information in this document.
[2023-11-05 12:08] LABS: INR 2.74; Prothrombin Time 26.3 sec (9.0-11.6)
== END 2023-11-05 11:34 | disposition home or self-care (01) ==
LOC: LAB 11:34
PROVIDERS: PCP Family Medicine; Visit Provider Family Medicine
DX: Z79.01 Long term (current) use of 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 (principal)
CPT/HCPCS: 36415; 85610

== ENCOUNTER 2023-12-16 11:17 | Outpatient (OUT) | payer MEDICARE, OTHER, SELFPAY ==
--- OUTSIDE RECORDS SUMMARY | 2023-12-16 11:38 | XMS_ITS | CCD ---
Author Organization [facility] CliniSyde Care Team Providers Care Mission Planner Name Role Phone CHARBEL ZUÑIGA Unavailable Unavailable [...] Attending Unavailable SAMSA ., OUSMANE Admitting Unavailable SOUTHFIELD, DR KELY Rae Consulting Unavailable SAMSA ., OUSMANE Attending Unavailable NADERER, DR DAYRON Mckinney Primary Care Unavailable SAMSA ., OUSMANE Consulting Unavailable MD Dayron Cervantes Primary Care Provider MD Stanley Gregory II Attending Provider MD Sonido Blackburn Attending Provider [phone] Sonido Blackburn Admitting Unavailable Jhon, Dayron Primary Care Unavailable Sonido Blackburn Attending Unavailable Jhon, Dayron Primary Care Unavailable Stanley Gregory II Attending UnavailStanley Gaffney II Admitting UnavailDayron Kuhn Primary Care Unavailable Stanley Gregory II Attending UnavailStanley Gaffney II Admitting UnavailKELY Martin Referring Unavailable DAYRON CERVANTES Primary Care Unavailable KELY GARZA Attending Unavailable KELY GARZA Referring Unavailable DAYRON CERVANTES Primary Care Unavailable JOANNA FREITAS Admitting Unavailable JOANNA FREIATS Attending Unavailable JOANNA FREITAS Referring Unavailable VALENTINE GOMEZ Attending Unavailable DAYRON CERVANTES Primary Care Unavailable DAYRON CERVANTES Attending Unavailable ROSE MARIE MOSQUEDA Attending Unavailable SONIDO BLACKBURN Referring Unavailable ROSE MARIE MOSQUEDA Attending Unavailable SONIDO BLACKBURN Referring Unavailable ROSE MARIE MOSQUEDA Attending Unavailable SONIDO BLACKBURN Referring Unavailable ROSE MARIE MOSQUEDA Attending Unavailable SONIDO BLACKBURN Referring Unavailable ROSE MARIE MOSQUEDA Attending Unavailable SONIDO BLACKBURN Referring Unavailable DAYRON CERVANTES Attending Unavailable Medications Current Medications Medication Drug [...] hip] 07-15-2023 Chronic Other aftercare (5 sources) alf (current) use of 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; Translations: [PRISON CURRNT USE ANTICOAGULANTS] Onset: 07-17-2022 Episodic Other [...] 09-18-2023 XR lumbar spine 6V w bending [facility] Main [address] [address] XRay Report Signed Patient: Bill Allen MR#: [id number] 36 : 1950 Acct:[id number] Age/Sex: 73 / M ADM Date: 09/18/23 [...] LOSS. Impression dictated by: Guille Encinas Jr., D.OChaitanya09/18/2023 3:18 PM Dictation Location: [place] [address] Transcribed By: [facility] 09/18/23 1518 Dictated By: Guille Encinas Jr, DO 09/18/23 1517 Signed By: 09/18/23 1518 Normal [facility] MR lumbar spine wo conon MR lumbar spine wo con [facility] Main [address] [address] MRI Report Signed Patient: Bill Allen MR#: [id number] [birth year] : 1950 Acct:[id number] Age/Sex: 72 / M ADM Date: 07/23/23 Loc: MR Room: Type: [facility] CLI Attending Dr: Stanley Gregory II, MD [...] Leland Murillo M.D.07/23/2023 3:18 PM Dictation Location: [place] [address] Transcribed By: [facility] 07/23/23 151 Dictated By: Leland Murillo II, MD 07/23/231510 Signed By: 07/23/23 151 Normal [facility] XR hip BI w [id number] 07-15-19 XR hip BI w [id number] [facility] [address] [place] [address] XRay Report Signed Patient: Bill Allen MR#: [id number] [birth year] : 1950 Acct:[id number] Age/Sex: 72 / M ADM Date: 07/15/23 Loc: [facility] Room: Type: [facility] Attending Dr: Stanley Gregory II, MD [...] Irving Saldivar M.D.07/15/2023 10:09 AM Dictation Location: [facility] Transcribed By: PWS 07/15/23 1009 Dictated By: Irving Saldivar DO 07/15/23 1008 Signed By: 07/15/23 1009 Normal [facility] XR lumbar spine AP/LAT/FLX/E XTon 07-15-2023 XR lumbar spine AP/LAT/FLX/EXT [facility] [address] [place] [address] XRay Report Signed Patient: Bill Allen MR#: [id number] [birth year] : 1950 Acct:[id number] Age/Sex: 72 / M ADM Date: 07/15/23 Loc: [facility] Room: Type: [facility] Attending Dr: Stanley Gregory II, MD [...] Vicky Hill M.D.07/15/2023 1:59 PM Dictation Location: [place] Transcribed By: ANGIE 07/15/23 1359 Dictated By: Vicky Hill MD 07/15/23 1357 Signed By: 07/15/23 1359 Normal [facility] PROTIMEon 07-17-2022 INR Coag (PPP) [Relative time] 2.75 {INR} Normal [facility] Comment on above: Performed By: #### PT #### [facility] [address] [place] [address] Dr. Roya Martin INR GUIDELINES SEE BELOW Normal [facility] Comment on above: Result Comment: DESIRED INR: 2.0 - 3.0 C ONDITIONS NOT LISTED BELOW 2.5 - 3.5 FOR PROSTHETIC HEART VALVE REPLACEMENT 2.5 - 3.5 RECURRENT THROMBOSIS Performed By: #### P T #### [facility] [address] [place] [address] Dr. Roya Martin PT Coag (PPP) [Time] 27.5 s Critically high 9.0-11.6 [facility] [place] [facility] Comment on above: Performed By: #### PT #### [facility] [address] [place] [address] Dr. Roya Martin PROTIMEon 06-04-2022 INR Coag (PPP) [Relative time] 2.97 {INR} Normal [facility] Comment on above: Performed By: #### PT #### [facility] [address] [place] [address] Dr. Roya Martin INR GUIDELINES SEE BELOW [facility] Comment on above: Result Comment: DESIRED INR: 2.0 - 3.0 C ONDITIONS NOT LISTED BELOW 2.5 - 3.5 FOR PROSTHETIC HEART VALVE REPLACEMENT 2.5 - 3.5 RECURRENT THROMBOSIS Performed By: #### P T #### [facility] [address] [place] [address] Dr. Roya Martin PT Coag (PPP) [Time] 29.6 s Critically high 9.0-11.6 [facility] Comment on above: Performed By: #### PT #### [facility] [address] [place] [address] Dr. Roya Martin PROTIMEon 04-03-2022 INR Coag (PPP) [Relative time] 3.40 {INR} Normal [facility] Comment on above: Performed By: #### PT #### [facility] [address] [place] [address] Dr. Roya Martin INR GUIDELINES SEE BELOW Normal [facility] [place] [facility] Comment on above: Result Comment: DESIRED INR: 2.0 - 3.0 C ONDITIONS NOT LISTED BELOW 2.5 - 3.5 FOR PROSTHETIC HEART VALVE REPLACEMENT 2.5 - 3.5 RECURRENT THROMBOSIS Performed By: #### P T #### [facility] [address] [place] [address] Dr. Roya Martin PT Coag (PPP) [Time] 33.6 s Critically high 9.0-11.6 [facility] [place] [facility] Comment on above: Performed By: #### PT #### [facility] [address] [place] [address] Dr. Roya Martin PROTIMEon 01-06-2022 INR Coag (PPP) [Relative time] 2.45 {INR} Normal [facility] [place] [facility] Comment on above: Performed By: #### PT #### [facility] [address] [place] [address] Dr. Roya Martin INR GUIDELINES SEE BELOW Normal [facility] [place] [facility] Comment on above: Result Comment: DESIRED INR: 2.0 - 3.0 C ONDITIONS NOT LISTED BELOW 2.5 - 3.5 FOR PROSTHETIC HEART VALVE REPLACEMENT 2.5 - 3.5 RECURRENT THROMBOSIS Performed By: #### P T #### [facility] [address] [place] [address] Dr. Roya Martin PT Coag (PPP) [Time] 25.0 s Critically high 9.0-11.6 [facility] [place] [facility] Comment on above: Performed By: #### PT #### [facility] [address] [place] [address] CHEST HI RESOLUTIONon [...] KELY TAYLOR Date: 2021-11-27 08:56 Normal [facility] HEMOGLOBINon 11-27-2021 Hemoglobin (Bld) [Mass/Vol] 15.4 g/dL Normal 14.0-18.0 [facility] Comment on above: Performed By: #### HGB #### [facility] [address] [place] [address] Dr. Roya Martin PROTIMEon 11-14-2021 INR Coag (PPP) [Relative time] 2.28 {INR} Normal [facility] Comment on above: Performed By: #### PT #### [facility] [address] [place] [address] Dr. Roya Martin INR GUIDELINES SEE BELOW Normal [facility] Comment on above: Result Comment: DESIRED INR: 2.0 - 3.0 C ONDITIONS NOT LISTED BELOW 2.5 - 3.5 FOR PROSTHETIC HEART VALVE REPLACEMENT 2.5 - 3.5 RECURRENT THROMBOSIS Performed By: #### P T #### [facility] [address] [place] [address] Dr. Roya Martin PT Coag (PPP) [Time] 23.3 s Critically high 9.0-11.6 [facility] Comment on above: Performed By: #### PT #### [facility] [address] [place] [address] Dr. Roya Martin PROTIMEon 09-09-2021 INR Coag (PPP) [Relative time] 2.70 {INR} Normal [facility] Comment on above: Performed By: #### PT #### [facility] [address] [place] [address] [address] Roya Martin INR GUIDELINES SEE BELOW Normal [facility] [place] [facility] Comment on above: Result Comment: DESIRED INR: 2.0 - 3.0 C ONDITIONS NOT LISTED BELOW 2.5 - 3.5 FOR PROSTHETIC HEART VALVE REPLACEMENT 2.5 - 3.5 RECURRENT THROMBOSIS Performed By: #### P T #### [facility] [address] [place] [address] [address] Roya Martin PT Coag (PPP) [Time] 27.3 s Critically high 9.0-11.6 [facility] [place] [facility] Comment on above: Performed By: #### PT #### [facility] [address] [place] [address] [address] Roya BYRDOVon 04-16-2017 CNOV Office Visit (CARDFT) BILL PELAEZ ([id number]) 1950 MDate Time Provider Department04/16/17 11:30 AM CHARBEL ZUÑIGA During your visit today, we recorded the following information about you: Pulse Respiration Blood pressure Weight 72/minute 18/minute 125/74 99.3 kg Height 1.778 Aurea Zuñiga MD 04/16/2017 11:49 AM [facility] Department of Cardiovascular MedicineOUTPATIENT VISIT DATE04/16/17OUTPATIENT VISIT TYPEEstablishedPRIMARY CARE PHYSICIAN:Reyes Bolanos, [id number] [facility] [address]Tjjje: [phone]: [phone] COMPLAINT:PalpitationsHISTORY OF PRESENT ILLNESS: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 [...] 99.3 kg (219lb) SpO2 98% BMI 31.42 kg/p8Ayytczd: Well appearing, in no acute distress. ObeseNeuro: [...] 01/08/16 [place], stage 1 diastology, no [id number] day monitor 02/14/16inus, rare PACs, frequent PVCs [...] or concerns.Charbel Zuñiga M.D.Joel NapierDepartment of Cardiovascular MedicineBucyrus Community Hospitalrt and Vascular Institute[address] [place], [place] [address]Zmvhuq: [phone] Referring Provider: REYES BOLANOS [[id number]]Allergies As of Date: 04/16/2017(No Known Allergies)Date Reviewed: 04/16/2017Reviewed by: Kelly RoldanRn) MAHNAZ Huitron - Fully AssessedPrimary Visit Diagnosis:Essential [...] RN 04/16/2017 11:29 AM >> KELLY HUITRON [facility] Apr 16, 2017 11:29 AM Received from: External Pharmacy >> Jayden Kolb RN 04/16/2017 11:29 AM >> KELLY HUITRON [facility] Apr 16, 2017 11:29 AM LISINOPRIL 10 MG TABLET >> Jayden Kolb RN 04/16/2017 11:29 AM >> KELLY HUITRON [facility] Apr 16, 2017 11:29 AM Received from: External Pharmacy >> Jayden Kolb RN 04/16/2017 11:29 AM >> KELLY HUITRON [facility] Apr 16, 2017 11:29 AMProblem List As Of Date: 04/16/2017(None)Medications Discontinued During This Encounter losartan-hydrochlorothiazide (HYZAAR* 90 t* 3 04/16/2016 04/16/2017 Route: ORAL Sig: Take 1 tablet by mouth once daily. Disc: Erroneous entryDisposition: Return if symptoms worsen or fail to improve.Follow-up and Disposition History RecordedEncounter Number: [id number] Status:Closed by CHARBEL ZUÑIGA MD on 04/16/17 Normal [facility] PROGRESSon 04-13-2017 PROGRESS HNO ID: [id number] thor: Charbel Weeks: (none)Author Type: PhysicianType: Progress NotesFiled: 04/16/2017 11:49 AMNote Text:Heart and Vascular InstituteStanley and Maris Napier Department of Cardiovascular MedicineOUTPATIENT VISIT DATE04/16/17OUTPATIENT VISIT TYPEEstablishedPRIMARY CARE PHYSICIAN:Reyes Bolanos, [id number] [facility] [place] [address]Tbdvc: [phone]: [phone] COMPLAINT:PalpitationsHISTORY OF PRESENT ILLNESS: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 [...] 99.3 kg (219lb) SpO2 98% BMI 31.42 kg/s4Vnirvwg: Well appearing, in no acute distress. ObeseNeuro: [...] 01/08/16 [place] 55, stage 1 diastology, no [id number] day monitor 02/14/16inus, rare PACs, frequent PVCs [...] contact us with further questions or concerns.Charbel Hampole, M.D.[facility] Maris TomsichDepartment of Cardiovascular MedicineBucyrus Community Hospitalrt and Vascular InstituteDonna Ville [address] [address] [place], [place] [address]Blhvat: [phone] Normal [facility] Vital Signs Date Time Vital Sign Value Performing Clinician Faci lity 07-15-2023 09: Body height 175.26 cm MD Dayron Cervantes Work Phone: [facility] 07-15-2023 09: Body mass index (BMI) [Ratio] 33.5 kg/m2 MD Dayron Cervantes Work Phone: [facility] 07-15-2023 09: Body weight 103.02 kg MD Dayron Cervantes Work Phone: [facility] Encounters Encounter Date Encounter Type Care Provider Facility Start: 11-25-2023 End: 11-25-2023 ambulatory ROSE MARIE MOSQUEDA Not Available Start: 11-11-2023 End: 11-11-2023 ambulatory ROSE MARIE MOSQUEDA Not Available Start: 11-05-2023 End: 11-05-2023 ambulatory ROSE MARIE MOSQUEDA Not Available Start: 10-20-2023 End: 10-20-2023 Evaluation and management of inpatient VALENTINEJennifer GOMEZ [facility] Start: 10-20-2023 End: 10-20-2023 Evaluation and management of inpatient JOANNA FREITAS [facility] Start: 10-16-2023 End: 10-16-2023 ambulatory ROSE MARIE MOSQUEDA Not Available Start: 10-01-2023 End: 10-01-2023 ambulatory ROSE MARIE MOSQUEDA Not Available Start: 09-29-2023 End: 09-29-2023 ambulatory KELY GARZA [facility] Start: 09-29-2023 Encounter for other preprocedural examination KELY GARZA [facility] Start: 09-18-2023 End: 09-18-2023 Patient encounter procedure MD Dayron Cervantes Work Phone: [facility] [place] Work Phone: Start: 09-18-2023 End: 09-18-2023 ambulatory MD Dayron Cervantes Work Phone: [facility] Work Phone: Start: 09-04-2023 End: 09-04-2023 ambulatory DAYRON CERVANTES Not Available Start: 07-23-2023 End: 07-23-2023 Patient encounter procedure MD Dayron Cervantes Work Phone: [facility] [place] Work Phone: Start: 07-23-2023 End: 07-23-2023 ambulatory MD Dayron Cervantes Work Phone: [facility] Work Phone: Start: 07-15-2023 End: 07-15-2023 ambulatory Dayron Cervantes Facility:[facility] Start: 07-15-2023 End: 07-15-2023 Patient encounter procedure MD Dayron Cervantes Work Phone: [facility] Work Phone: Start: 03-04-2023 End: 03-04-2023 [...] Start: 04-16-2017 End: 04-22-2017 Ambulatory CHARBEL ZUÑIGA [facility] Procedures Date Procedure Procedure Detail [...] Date Payer Category Payer Self-pay 1959 Medicare [id number] 1959 Unknown [id number] 1950 Unknown [id number] 2.16.84 0.1.478034.3.579.2.593 1950 Unknown [id number] 2.16.84 0.1.404625.3.579.2.593 1950 Unknown [id number] 2.16.84 0.1.718676.3.579.2.593 1950 Unknown [id number] 2.16.84 0.1.015604.3.579.2.593 1950 Unknown [id number] 2.16.84 0.1.903065.3.579.2.593 1950 Unknown [id number] 2.16.84 0.1.495402.3.579.2.593 1950 Unknown [id number] 2.16.84 0.1.509144.3.579.2.593 1950 Unknown [id number] 2.16.8 40.1.981585.3.579.2.1286 1950 Unknown [id number] 2.16.8 40.1.326113.3.579.2.1286 1950 Unknown [id number] 2.16.8 40.1.123734.3.579.2.1286 1950 Unknown [id number] 2.16.8 40.1.169872.3.579.2.6 1950 Unknown [id number] 2.16.8 40.1.831420.3.579.2.128 1950 Unknown [id number] 2.16.84 0.1.167552.3.579.2.1259 1950 Unknown [id number] 2.16.84 0.1.840302.3.579.2.9 1950 Unknown [id number] 2.16.84 0.1.880927.3.579.2.9 1950 Unknown [id number] 2.16.84 0.1.655741.3.579.2.9 1950 Unknown [id number] 2.16.84 0.1.837327.3.579.2.1259 1950 Unknown [id number] 2.16.84 0.1.625709.3.579.2.9 1950 Unknown [id number] 2.16.840 .1.385609.3.579.2.1259 Unknown [id number] 2.16.8 40.1.281781.3.579.2.531 Unknown [id number] 2.16.8 40.1.660700.3.579.2.531 Unknown [id number] 2.16.8 40.1.279379.3.579.2.531 Social History Date Type Detail Facility [facility] Work Phone: Start: 1950 Sex Assigned At Male F [facility] Evaluation note Note Date & Type Note Facility Evaluation note Diagnosis Onset Date Bilateral primary osteoarthritis of hip acute Spinal stenosis acute [facility] Work Phone: Summary Purpose Family History No [...] section and content) DATE CREATED AUTHOR 09/07/2017 [facility] DATE CREATED AUTHOR AUTHOR'S ORGANIZ ATION 07/24/2022 [facility] pital DATE CREATED AUTHOR AUTHOR'S ORGANIZ ATION 09/21/2023 [facility] DATE CREATED AUTHOR AUTHOR'S ORGANIZ ATION 10/22/2023 [facility] DATE CREATED AUTHOR AUTHOR'S ORGANIZ ATION 11/27/2023 [facility] [employer] Care Teams [...] BE BASED ON THE PRIMARY CLINICAL RECORDS. [employer] [facility]. provides no warranty or guarantee of the accuracy or completeness of information in this document.
[2023-12-16 11:54] LABS: INR 3.09; Prothrombin Time 29.3 sec (9.0-11.6)
== END 2023-12-16 11:18 | disposition home or self-care (01) ==
LOC: LAB 11:17
PROVIDERS: PCP Family Medicine; Visit Provider Family Medicine
DX: Z79.01 Long term (current) use of 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 (principal)
CPT/HCPCS: 36415; 85610

== ENCOUNTER 2024-01-27 13:07 | Outpatient (OUT) | payer MEDICARE, OTHER, SELFPAY ==
[2024-01-27 13:33] LABS: INR 2.29; Prothrombin Time 22.4 sec (9.0-11.6)
== END 2024-01-27 13:08 | disposition home or self-care (01) ==
LOC: LAB 13:07
PROVIDERS: PCP Family Medicine; Visit Provider Family Medicine
DX: Z79.01 Long term (current) use of 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 (principal)
CPT/HCPCS: 36415; 85610

== ENCOUNTER 2024-02-23 13:24 | Outpatient (OUT) | payer MEDICARE, OTHER, SELFPAY ==
[2024-02-23 13:49] LABS: INR 2.97; Prothrombin Time 28.3 sec (9.0-11.6)
== END 2024-02-23 13:25 | disposition home or self-care (01) ==
LOC: LAB 13:24
PROVIDERS: PCP Family Medicine; Visit Provider Family Medicine
DX: Z79.01 Long term (current) use of 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 (principal)
CPT/HCPCS: 36415; 85610

== ENCOUNTER 2024-03-19 12:24 | Emergency (ER) | payer MEDICARE, OTHER, SELFPAY ==
[2024-03-19 12:28] VITALS: BP 171/81; PULSE 98; TEMP 36.8; O2SAT 97; BMI 32.5
--- NOTE | 2024-03-19 12:41 | PC.NURSE ---
Complains of blood in urine , denies any pain. Urine sample obtained and has bloody urine noted.
[2024-03-19 12:47] LABS: Clarity Urine CLEAR (CLEAR); Color Urine DK. RED (YELLOW); Specific Gravity Urine 1.025 (1.005-1.025)
--- NOTE | 2024-03-19 12:50 | ED.MALEGU1 ---
HPI - Male Genitourinary General Chief complaint: Urogenital-Male Stated complaint: BLOOD IN URINE Time Seen by Provider: 03/19/24 12:25 Source: patient Mode of arrival: walk-in Limitations: no limitations History of Present Illness HPI Narrative: At 2am the pt woke to urinate and saw red blood and clots . No flank or abdominal pain and no difficulty starting or stopping the stream. he takes coumadin daily and level was normal 2 weeks ago, he told me. He was on paxlovid for 5 days after testing (+) for Covid on 03/09/24. No other med changes. last kidney stone was years and years ago . Pt told me that he slipped and fell, landing square on my back yesterday - but no bruising, pain or tenderness to the low back Related Data Home Medications ?Medication ?Instructions ?Recorded ?Confirmed lisinopril 20 mg tablet 20 mg PO DAILY 03/19/24 03/19/24 metoprolol tartrate 50 mg tablet 50 mg PO BID 03/19/24 03/19/24 simvastatin 20 mg tablet 20 mg PO DAILY 03/19/24 03/19/24 terazosin 10 mg capsule 10 mg PO DAILY 03/19/24 03/19/24 warfarin 5 mg tablet 5 mg PO DAILY 03/19/24 03/19/24 Previous Rx's ?Medication ?Instructions ?Recorded ciprofloxacin HCl 500 mg tablet 500 mg PO BID #10 tabs 03/19/24 (Cipro) Allergies Allergy/AdvReac Type Severity Reaction Status Date / Time No Known Drug Allergies Allergy Verified 03/19/24 12:31 PFSH PFSH Social History Little interest or pleasure in doing things: not at all Feeling down, depressed, or hopeless: not at all Exam Narrative Exam Narrative: Nurses notes and vital signs reviewed and patient is not hypoxic. afebrile General: Well-appearing and in no apparent distress. Skin: Warm, dry, no pallor noted. No rash. Eye: Pupils are equal, round and EOMI. No scleral icterus. Cardiovascular: Regular Rate and Rhythm without murmur, gallop or rub. Respiratory: No accessory muscle use or respiratory distress. Lungs are clear to auscultation, no wheezing, rales or rhonchi Back: No midline thoracic or lumbar vertebral tenderness. No CVA tenderness Musculoskeletal: normal ROM GI: Abdomen is soft, non-distended. Normal bowel sounds. No masses appreciated. No tenderness to palpation. No rebound, guarding, or rigidity noted. Neurological: A&O x4. No cranial nerve dysfunction observed. No truncal ataxia. Moves all extremities. Sensation intact. Psychiatric: Cooperative and interactive. Normal mood and affect. Constitutional Vital Signs, click to edit/add: Last Vital Signs Temp 98.2 F 03/19/24 12:28 Pulse 98 H 03/19/24 12:28 Resp 20 03/19/24 12:28 BP 171/81 H 03/19/24 12:28 Pulse Ox 97 03/19/24 12:28 O2 Del Method Room Air 03/19/24 12:28 Course Vital Signs Vital signs: Vital Signs Temperature 98.2 F 03/19/24 12:28 Pulse Rate 98 H 03/19/24 12:28 Respiratory Rate 20 03/19/24 12:28 Blood Pressure 171/81 H 03/19/24 12:28 Pulse Oximetry 97 03/19/24 12:28 Oxygen Delivery Method Room Air 03/19/24 12:28 Temperature 98.2 F 03/19/24 12:28 Pulse Rate 98 H 03/19/24 12:28 Respiratory Rate 20 03/19/24 12:28 Blood Pressure 171/81 H 03/19/24 12:28 Pulse Oximetry 97 03/19/24 12:28 Oxygen Delivery Method Room Air 03/19/24 12:28 MDM - Male Genitourinary MDM Narrative Medical decision making narrative: Urine and blood obtained and sent for testing, including INR. INR at 1.7 and pt informed of result He also has acute UTI. Renal function mildly affected. No flank pain, abd pain or CVAT to suggest ureteral stone - will treat with antibiotics and is he does not improve, he will need to see urologist to rule out bladder or prostate problem. Discussed reasons to return including inability to pass urine, flank or abd pain, fever, worsened bleeding. Pt agreeable to plan. Differential Diagnosis Differential diagnosis: Likely urinary tract infection, urethritis, acute retention of urine and other Medical Records Attestation: I reviewed the patient's medical records. Lab Data Attestation: I reviewed the patient's lab results. Labs: Lab Results 03/19/24 03/19/24 Range/Units 12:40 12:50 WBC 8.9 (4.0-11.0) 10^3/uL RBC 5.35 (4.70-6.10) 10^6/uL Hgb 15.6 (14.0-18.0) g/dL Hct 47.4 (42.0-54.0) % MCV 88.6 (80.0-94.0) fL MCH 29.2 (25.9-34.0) pg MCHC 32.9 (29.9-35.2) g/dL RDW 12.4 (11.0-15.0) % Plt Count 207 (150-450) 10^3/uL MPV 8.9 L (9.5-13.5) fL Neut % (Auto) 69.3 (43.0-75.0) % Lymph % (Auto) 22.5 (20.5-60.0) % [place] % (Auto) 6.1 (1.7-12.0) % Eos % (Auto) 1.1 (0.9-7.0) % Baso % (Auto) 0.5 (0.2-2.0) % Neut # (Auto) 6.2 (1.4-6.5) 10^3/uL Lymph # (Auto) 2.0 (1.2-3.8) 10^3/uL [place] # (Auto) 0.5 (0.3-0.8) 10^3/uL Eos # (Auto) 0.1 (0.0-0.7) 10^3/uL Baso # (Auto) 0.0 (0.0-0.1) 10^3/uL Abs Immat Gran (auto) 0.04 H (0.00-0.03) 10^3/uL Imm/Tot Granulo (auto) 0.5 (0.0-0.5) % PT 17.2 H (9.0-11.6) sec INR 1.71 Sodium 142 (136-145) mmol/L Potassium 3.8 (3.5-5.1) mmol/L Chloride 105 (98-107) mmol/L Carbon Dioxide 27.2 (21.0-32.0) mmol/L Anion Gap 13.6 BUN 20.0 H (7.0-18.0) mg/dL Creatinine 1.37 H (0.70-1.30) mg/dL Est GFR ( Amer) >60 (>=60 mL/min/1.73m^2) Est GFR (Non-Af Amer) 51 L (>=60 mL/min/1.73m^2) BUN/Creatinine Ratio 14.6 Glucose 199 H (74-106) mg/dL Calcium 9.2 (8.5-10.1) mg/dL Urine Color Dk. red (YELLOW) Urine Clarity Clear (CLEAR) Urine pH Color interference A (5.0-9.0) Ur Specific [place] 1.025 (1.005-1.025) Urine Protein Color interference A (NEG/TRACE) mg/dL Urine Glucose (UA) Color interference A (NEGATIVE) mg/dL Urine Ketones Color interference A (NEGATIVE) mg/dL Urine Occult Blood Color interference A (NEGATIVE) Urine Nitrite Color interference A (NEGATIVE) Urine Bilirubin Color interference A (NEGATIVE) Urine Urobilinogen Color interference A (0.2-1.0) EU/dL Ur Leukocyte Esterase Color interference A (NEGATIVE) Urine RBC >100 A (0-2) #/HPF Urine WBC 0-2 A (NONE SEEN) #/HPF Ur Squamous Epith Cells None seen (NONE/RARE) #/LPF Urine Crystals None seen (None Seen) #/HPF Urine Bacteria Small A (NONE SEEN) #/HPF Urine Casts None seen (NONE SEEN) #/LPF Urine Mucus None seen (NONE SEEN) Ur Culture Indicated? Yes Discharge Plan Discharge Chief Complaint: Urogenital-Male Clinical Impression: Urinary tract infection, Gross hematuria Patient Disposition: Home, Self-Care Time of Disposition Decision: 13:37 Prescriptions / Home Meds: New ciprofloxacin HCl [Cipro] 500 mg tablet 500 mg PO BID Qty: 10 0RF No Action lisinopril 20 mg tablet 20 mg PO DAILY metoprolol tartrate 50 mg tablet 50 mg PO BID simvastatin 20 mg tablet 20 mg PO DAILY terazosin 10 mg capsule 10 mg PO DAILY warfarin 5 mg tablet 5 mg PO DAILY Print Language: Indonesian Instructions: Urinary Tract Infection in Men (ED), Hematuria (ED) Referrals: Dayron Ferreira MD [Primary Care Provider] - 1 week
[2024-03-19 12:51] LABS: Bilirubin Urine COLOR INTERFERENCE (NEGATIVE); Blood Urine COLOR INTERFERENCE (NEGATIVE); Glucose Urine UA COLOR INTERFERENCE mg/dL (NEGATIVE); Ketones Urine COLOR INTERFERENCE mg/dL (NEGATIVE); Leukocyte Esterase Urine COLOR INTERFERENCE (NEGATIVE); Nitrite Urine COLOR INTERFERENCE (NEGATIVE); Protein Urine COLOR INTERFERENCE mg/dL (NEG/TRACE); Urine Microscopic Indicated YES; Urobilinogen Urine COLOR INTERFERENCE EU/dL (0.2-1.0); pH Urine COLOR INTERFERENCE (5.0-9.0)
[2024-03-19 12:54] LABS: Mucus Urine NONE SEEN (NONE SEEN); RBC Urine >100 #/HPF (0-2); Squamous Epithelial Cell Urine NONE SEEN #/LPF (NONE/RARE); WBC Urine 0-2 #/HPF (NONE SEEN)
[2024-03-19 12:54] LABS: Basophils Percent Auto 0.5 % (0.2-2.0); Eosinophils Absolute Auto 0.1 10^3/uL (0.0-0.7); Eosinophils Percent Auto 1.1 % (0.9-7.0); Hematocrit 47.4 % (42.0-54.0); Hemoglobin 15.6 g/dL (14.0-18.0); Immature Granulocytes Abs Auto 0.04 10^3/uL (0.00-0.03); Immature Granulocytes Pct Auto 0.5 % (0.0-0.5); Lymphocytes Percent Auto 22.5 % (20.5-60.0); Mean Corpuscular HGB Conc 32.9 g/dL (29.9-35.2); Mean Corpuscular Hemoglobin 29.2 pg (25.9-34.0); Mean Corpuscular Volume 88.6 fL (80.0-94.0); Mean Platelet Volume 8.9 fL (9.5-13.5); Monocytes Absolute Auto 0.5 10^3/uL (0.3-0.8); Monocytes Percent Auto 6.1 % (1.7-12.0); Neutrophils Absolute Auto 6.2 10^3/uL (1.4-6.5); Neutrophils Percent Auto 69.3 % (43.0-75.0); Platelet Count 207 10^3/uL (150-450); Red Blood Count 5.35 10^6/uL (4.70-6.10); Red Cell Distribution Width 12.4 % (11.0-15.0); White Blood Count 8.9 10^3/uL (4.0-11.0)
[2024-03-19 12:55] LABS: Bacteria Urine SMALL #/HPF (NONE SEEN); Cast Seen? NONE SEEN #/LPF (NONE SEEN); Crystals Seen? None Seen #/HPF (None Seen); Urine Culture Indicated YES
[2024-03-19 13:06] LABS: Anion Gap 13.6; BUN Creatinine Ratio 14.6; Calcium 9.2 mg/dL (8.5-10.1); Carbon Dioxide 27.2 mmol/L (21.0-32.0); Chloride 105 mmol/L (98-107); Estimated GFR (African America >60 (>=60 mL/min/1.73m^2); Estimated GFR (Non-African Ame 51 (>=60 mL/min/1.73m^2); Glucose 199 mg/dL (74-106); Potassium 3.8 mmol/L (3.5-5.1); Sodium 142 mmol/L (136-145)
[2024-03-19 13:09] LABS: INR 1.71; Prothrombin Time 17.2 sec (9.0-11.6)
[2024-03-22 08:18] LABS: BOX Test Reference Lab FIRELANDS
== END 2024-03-19 13:48 | disposition home or self-care (01) ==
PROVIDERS: Emergency Provider Emergency Medicine; PCP Family Medicine
DX: N39.0 Urinary tract infection, site not specified (principal); R31.0 Gross hematuria; Z79.01 Long term (current) use of 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; Z86.16 Personal history of COVID-19; Z87.442 Personal history of urinary calculi
CPT/HCPCS: 36415; 80048; 81001; 85025; 85610; 87086; 99283

== ENCOUNTER 2024-03-31 20:17 | Outpatient (REF) | payer MEDICARE, OTHER, SELFPAY ==
--- OUTSIDE RECORDS SUMMARY | 2024-03-31 20:21 | XMS_ITS | CCD ---
Author Organization [facility] Care Team Providers Care Rehabilitation Counsellor Name Role Phone CHARBEL ZUÑIGA Unavailable Unavailable CICI, JULIET Lauren Unavailable Unavailable NADERER, DR DAYRON Mckinney Admitting [...] Attending Unavailable SAMSA ., OUSMANE Admitting Unavailable SUNSET, DR KELY Rae Consulting Unavailable SAMSA ., OUSMANE Attending Unavailable NADERER, DR DAYRON Mckinney Primary Care Unavailable SAMSA ., OUSMANE Consulting Unavailable MD Dayron Cervantes Primary Care Provider [phone] MD Stanley Gregory II Attending Provider MD Izabela Blackburn Attending Provider [phone] KELY GARZA Referring Unavailable NADEREJayden, DAYRON Primary Care Unavailable KELY GARZA Attending Unavailable KELY GARZA Referring Unavailable NADERER, DAYRON Primary Care Unavailable JOANNA FREITAS Admitting Unavailable JOANNA FREITAS Attending Unavailable JOANNA FREITAS Referring Unavailable VALENTINE GOMEZ Attending Unavailable DAYRON CERVANTES Primary Care Unavailable Dayron Cervantes MD Primary Care Provider [phone] DAYRON CERVANTES Attending Unavailable PANDA, STACI Attending Unavailable BLACKBURN, IZABELA Referring Unavailable OMER, STACI Attending Unavailable BLACKBURN, IZABELA Referring Unavailable OMER, STACI Attending Unavailable BLACKBURN, IZABELA Referring Unavailable PANDA, STACI Attending Unavailable BLACKBURN, IZABELA Referring Unavailable PANDA, STACI Attending Unavailable ALEXEY, IZABELA Referring Unavailable HELEN, DAYRON Attending Unavailable JOSE YEN Attending Unavailable ANA OSULLIVAN Attending Unavailable DAYRON CERVANTES Attending Unavailable NAA OSULLIVAN Attending Unavailable Dayron Cervantes MD Primary Care Provider [phone] Kevan Berrios DO Attending Provider Izabela Blackburn Attending Unavailable Dayron Cervantes Primary Care Unavailable Izabela Blackburn Admitting Unavailable Dayron Cervantes Primary Care Unavailable Stanley Gregory II Attending Unavaillinda Gregory II, Stanley Bateman Admitting Unavailabl e Dayron Cervantes Primary Care Unavailable Stanley Gregory II Attending Unavaillinda Gregory II, Stanley Bateman Admitting Unavailabl e Naderejayden, Dayron Primary Care Unavailable Kevan Berrios Attending Unavailable Kevan Berrios Admitting Unavailable Medications Current Medications Medication Drug Class(es) Dates Sig (Normalized) Sig (Original) Cholecalciferol (20 sources) Vitamin D Start: 07-15-2023 Cholecalciferol (Vitamin D3) 62.5 mcg (2,500 unit) capsule Active MCG PO July 14, 2023 11:00pm Start: 07-15-2023 Cholecalcifero l (Vitamin D3) Active MCG PO July 15, 2023 12:00am take 1 capsule by uth in the morning cholecalciferol (Vitamin D-3) 50 MCG (1999 UT) capsule Take 2,000 Units by mouth in the morning. Active dicyclomine hydrochloride 20 mg oral tablet (19 sources) Anticholinergic End: 02-24-2024 take 1 tablet by mouth four times daily as needed dicyclomine (Bentyl) 20 MG tablet Take 20 mg by mouth 4 (four) times a day as needed 02/24/2024 Discontinued Fish Oils (7 sources) take 1 capsule by mouth once daily omega-3 (FISH OIL) 300 MG capsule Take 300 mg by mouth Daily Active glucosamine sulfate 1000 mg oral capsule (3 sources) Start: 07-15-2023 take 1 capsule by mouth twice daily at mealtime Glucosamine Sulfate 1,000 mg capsule Active 1000 MG PO Twice daily July 14, 2023 11:00pm administer with meals Glucosamine-Chondro it-Vit C-Mn (Glucosamine 1500 Complex) capsule (20 sources) Glucosamine-Sam d roit-Vit C-Mn (Glucosamine 1500 Complex) capsule Take 1 capsule by mouth in the morning. Active lisinopril 20 mg oral tablet (20 sources) Angiotensin Converting Enzyme Inhibitor Start: 10-05-2023 End: 10-04-2024 take 1 tablet by mouth once daily lisinopril 20 MG tablet Indications: Benign hypertension (CMS/HCC) Take 1 tablet (20 mg) by mouth Daily 90 tablet 3 10/05/2023 10/04/2024 Active Start: 07-15-2023 take 1 tablet by jim th once daily Lisinopril 10 mg tablet Active 10 MG PO Daily July 14, 2023 11:00pm Medical marijuana (3 sources) Start: 07-15-2023 Medical mariju adrianne Active PO July 14, 2023 11:00pm Start: 07-15-2023 Medical mariju adrianne Active PO July 15, 2023 12:00am metoprolol tartrate 50 mg oral tablet (20 sources) beta-Adrenergic Chelsi Start: 07-15-2023 End: 10-04-2024 take 1 tablet by mouth in the morning metoprolol tartrate (Lopressor) 50 MG tablet Indications: BPH associated with nocturia Take 1 tablet (50 mg) by mouth in the morning and 1 tablet (50 mg) before bedtime. 180 tablet 3 10/05/2023 10/04/2024 Active Start: 07-15-2023 Metoprolol Tar trate Active MG PO July 15, 2023 12:00am multivitamin (Theragran) tablet (20 sources) take 1 tablet by mouth in the morning multivitamin (Theragran) tablet Take 1 tablet by mouth in the morning. Active Multivitamin preparation (2 sources) Start: 07-15-19 take 1 tablet by mouth once daily Multivitamin Active 1 TAB PO Daily July 15, 2023 12:00am Multivitamin tablet (1 source) Start: 07-15-19 take 1 tablet by mouth once daily Multivitamin tablet Active 1 TAB PO Daily July 14, 2023 11:00pm Nirmatrelvir&Ritonavir 300/100 (Paxlovid, 300/100,) 20 x 150 MG & 10 x 100MG tablet therapy pack (3 sources) Start: 03-10-20 Nirmatrelvir&Ritonavir 300/100 (Paxlovid, 300/100,) 20 x 150 MG & 10 x 100MG tablet therapy pack Indications: COVID-19 Take 1 each by mouth See administration instructions 1 each 03/10/2024 Active Ellis 3-Chx-Kym-Fish Oil (Fish Oil) 60-90-500 mg capsule (1 source) Start: 09-24-19 take 1 capsule by mouth once daily Ellis 5-Fxi-Dnc-Fish Oil (Fish Oil) 60-90-500 mg capsule Active 1 CAP PO Daily September 23, 2023 11:00pm simvastatin 20 mg oral tablet (20 sources) HMG-CoA Reductase Inhibitor Start: 07-15-19 End: 10-05-19 25 take 1 tablet by mouth at bedtime simvastatin (Zocor) 20 MG tablet Indications: Dyslipidemia (CMS/HCC) Take 1 tablet (20 mg) by mouth at bedtime 90 tablet 3 10/05/2023 10/04/2024 Active terazosin 10 mg oral capsule (20 sources) alpha-Adrenergic Chelsi Start: 07-15-19 End: 10-05-19 take 1 capsule by mouth at bedtime terazosin (Hytrin) 10 MG capsule Indications: BPH associated with nocturia Take 1 capsule (10 mg) by mouth at bedtime 90 capsule 3 10/05/2023 10/04/2024 Active ubidecarenone 100 mg oral capsule (3 sources) Start: 07-15-19 Coenzyme Q10 (Co Q-10) 100 mg capsule Active 100 MG PO Daily July 14, 2023 11:00pm ubidecarenone 100 mg / vitamin e 5 unt oral capsule (20 sources) take 1 capsule by mouth once daily coenzyme Q-10 100 MG capsule Take 1 capsule by mouth 1 (one) time each day at the same time Active warfarin sodium 5 mg oral tablet (20 sources) Vitamin K Antagonist Start: 07-15-19 warfarin (Coumadin) 5 MG tablet Indications: BPH associated with nocturia Take 1 tablet daily 90 tablet 3 10/05/2023 Active Problems Active Problems Problem Classification Problem Date Documented Da te Episodic/Chronic Acquired foot deformities (2 sources) Hammer toe; Translations: [Other hammer toe(s) (acquired), right foot] 12-16-2023 Chronic Cardiac dysrhythmias (20 sources) Multiple premature ventricular complexes; Translations: [Ventricular premature depolarization] Onset: 03-04-2023 03-04-2023 Chronic Chronic kidney disease (20 sources) Chronic kidney disease stage 3; Translations: [Chronic kidney disease, stage III (moderate) (HCC)] Onset: 03-04-2023 03-04-2023 Chronic Diabetes mellitus without complication (20 sources) Prediabetes; Translations: [Prediabetes] Onset: 03-04-2023 03-04-2023 Episodic Disorders of lipid metabolism (20 sources) Dyslipidemia; Translations: [Hyperlipidemia, unspecified] Onset: 03-04-2023 03-04-2023 Chronic Essential hypertension (20 sources) Benign hypertension; Translations: [Essential (primary) hypertension] Onset: 03-04-2023 03-04-2023 Chronic Genitourinary symptoms and ill-defined conditions (6 sources) hematuria; Translations: [Gross hematuria] Onset: 03-31-2024 03-31-2024 Episodic Hyperplasia of prostate (20 sources) Nocturia due to benign prostatic hypertrophy; Translations: [Benign prostatic hyperplasia with lower urinary tract symptoms] Onset: 03-04-2023 03-04-2023 Chronic Neoplasms of unspecified nature or uncertain behavior (4 sources) Neoplasm of skin; Translations: [Neoplasm of unspecified behavior of bone, soft tissue, and skin] 02-09-2024 Episodic Nutritional deficiencies (20 sources) Vitamin D deficiency; Translations: [Vitamin D deficiency, unspecified] Onset: 03-04-2023 03-04-2023 Chronic Osteoarthritis (20 sources) Primary coxarthrosis, bilateral; Translations: [Bilateral primary osteoarthritis of hip] Onset: 03-04-2023 07-15-2023 Chronic Other aftercare (5 sources) correction (current) use of 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; Translations: [CUSTODIAL CURRNT USE ANTICOAGULANTS] Onset: 07-17-2022 Episodic Other lower respiratory disease (4 sources) Pulmonary fibrosis, unspecified; Translations: [PULMONARY FIBROSIS UNSPECIFIED] Onset: 11-27-2021 Chronic Other lower respiratory disease (20 sources) Fibrosis of lung; Translations: [Pulmonary fibrosis, unspecified] Onset: 03-04-2023 03-04-2023 Chronic Other non-traumatic joint disorders (3 sources) Hip pain; Translations: [Pain in right hip] 07-13-2023 Episodic Other nutritional; endocrine; and metabolic disorders (20 sources) Body mass index 30+ - obesity; Translations: [Obesity, unspecified] Onset: 09-04-2023 09-04-2023 Chronic Other skin disorders (2 sources) Seborrheic keratosis; Translations: [Other seborrheic keratosis] 02-09-2024 Episodic Other skin disorders (2 sources) Actinic keratosis; Translations: [Actinic keratosis] 02-09-2024 Episodic Other upper respiratory infections (20 sources) Chronic sinusitis, unspecified; Translations: [Chronic rhinitis] Onset: 03-04-2023 09-04-2023 Chronic Peripheral and visceral atherosclerosis (20 sources) Renal artery stenosis; Translations: [Atherosclerosis of renal artery] Onset: 03-04-2023 03-04-2023 Chronic Spondylosis; intervertebral disc disorders; other back problems (20 sources) Thoracic spondylosis without myelopathy; Translations: [Spondylosis without myelopathy or radiculopathy, thoracic region] Onset: 03-04-2023 03-04-2023 Chronic Substance-related disorders (1 source) Nicotine dependence, cigarettes, uncomplicated; Translations: [NICOTINE DEPEND CIGARETTES UNCOMP] Onset: 12-01-2021 Chronic Unclassified (1 source) bilateral ptosis Onset: 10-20-2023 Unclassified (1 source) Low back pain, unspecified; Translations: [Low back pain, unspecified] Onset: 09-18-2023 Past or Other Problems Problem Classification Problem Date Documented Da te Episodic/Chronic Other aftercare (1 source) Encounter for follow-up examination after completed treatment for conditions other than malignant neoplasm; Translations: [Encounter for follow-up examination after completed treatment for conditions other than malignant neoplasm] Onset: 04-16-2017 Episodic Other aftercare (20 sources) 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; Translations: [correction (current) use of 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] Onset: 03-04-2023 03-04-2023 Episodic Other aftercare (17 sources) Long-term current use of drug therapy; Translations: [Other fdc (current) drug therapy] Onset: 09-04-2023 09-04-2023 Episodic Other aftercare (20 sources) Patient encounter status; Translations: [Encounter for screening for malignant neoplasm of prostate] Onset: 09-04-2023 09-04-2023 Episodic Other gastrointestinal disorders (20 sources) Irritable bowel syndrome with diarrhea; Translations: [Irritable bowel syndrome with diarrhea] Onset: 03-04-2023 Resolved: 02-24-2024 03-04-2023 Chronic Other non-traumatic joint disorders (1 source) Pain in right hip; Translations: [Pain in right hip] Onset: 07-15-2023 Episodic Other non-traumatic joint disorders (1 source) Pain in left hip; Translations: [Pain in left hip] Onset: 07-15-2023 Episodic Other upper respiratory disease (20 sources) Feeling of lump in throat; Translations: [Globus sensation] Onset: 03-04-2023 03-04-2023 Episodic Phlebitis; thrombophlebitis and thromboembolism (20 sources) H/O: Deep vein thrombosis; Translations: [Personal history of other venous thrombosis and embolism] Onset: 03-04-2023 12-16-2023 Episodic Spondylosis; intervertebral disc disorders; other back problems (20 sources) Spinal stenosis; Translations: [Spinal stenosis, site unspecified] Onset: 03-04-2023 07-15-2023 Episodic Comment on above: with right sided wea kness Results Test Name Value Interpretation Reference Range Facility HbA1c (Bld) [Mass fraction]o n 03-31-2024 Interpretation and review of laboratory results Abnormal [facility] - Hematology and Cell countson 03-31-2024 HbA1c (Bld) [Mass fraction] 6 % [facility] Urinalysis macro (dipstick) panel (U)on 03-31-2024 Bilirubin, UA Few Negative - 4(70) +++ mg/dL [facility] Blood, UA Positive Negative - 50 [place]/mcL [facility] Clarity, UA Cloudy [facility] Color, UA Red [facility] Glucose, UA Positive Negative - 1999(110) ++++ mg/dL [facility] Interpretation and review of laboratory results Abnormal [facility] Ketones, UA Negative Negative - 160(16) ++++ mg/dL [facility] Leukocytes, UA Negative Negative - 500+++ Robbie/mcL [facility] Nitrite, UA Negative Negative - Positive [facility] pH, UA 5.5 5 - 9 [facility] Protein, UA Moderate Negative - 1999(20) ++++ mg/dL [facility] Spec Grav, UA 1.02 1 - 1.03 [facility] Urobilinogen, UA 0.2 0.2 - 12 mg/dL [facility] Urine Cultureon 03-19-2024 Bacteria identified Cx Nom (U) <9,000 colonies/ml mixed bacterial skin contaminants 2 Days PERFORMED BY: [place] [address] PATHOLOGIST TAIL EDGER MELISSA AMBROCIO M.D. Normal [facility] Comment on above: Performed By: #### C UU #### [address] No Panel Informationon 02-23 Type of biopsy: senior ential Informed consent: discussed and consent obtained Informed consent comment: The risks and benefits of the biopsy were discussed. Risks include but are not limited to bleeding, infection, scarring, pain, and nerve damage. An opportunity to ask questions prior to the procedure was permitted and all questions were answered. Patient was prepped and draped in usual sterile fashion: area cleansed with alcohol. Anesthesia: the lesion was anesthetized in a standard fashion Anesthetic: 1% lidocaine w/ epinephrine 1-100,000 buffered w/ 8.4% NaHCO3 Instrument used: DermaBlade Hemostasis achieved with: electrodesiccation Outcome: patient tolerated procedure well Outcome comment: The specimen was placed in a prelabeled formalin container to be sent for pathology Post-procedure details: sterile dressing applied and wound care instructions given Post-procedure details comment: Emphasized need to contact clinic for any signs of infection, uncontrollable bleeding, or complications. Dressing type: bandage Additional details: Photo taken Amount of lidocaine used: 0.6 cc [facility] No Panel InformationOrdered By: Jody Romero on 02-24-2024 [facility] PROTHROMBIN TIME INR W/O COUMon 02-23-2024 Interpretation and review of laboratory results Abnormal [facility] PT Coag (PPP) [Time] 28.3 s High [facility] INR 2.97 [facility] Comment on above: DESIRED INR: 2.0-3.0 CONDITIONS NOT LISTED BELOW 2.5-3.5 FOR PROSTHETIC HEART VALVE REPLACEMENT 2.5-3.5 [facility] W/O COUMon 01-27-2024 Interpretation and review of laboratory results Abnormal [facility] PT Coag (PPP) [Time] 22.4 s High [facility] INR 2.29 [facility] Comment on above: DESIRED INR: 2.0-3.0 CONDITIONS NOT LISTED BELOW 2.5-3.5 FOR PROSTHETIC HEART VALVE REPLACEMENT 2.5-3.5 RECURRENT THROMBOSIS [facility] PROTHROMBIN TIME INR W/O COUMon 12-16-2023 Interpretation and review of laboratory results Abnormal [facility] PT Coag (PPP) [Time] 29.3 s High [facility] INR 3.09 [facility] Comment on above: DESIRED INR: 2.0-3.0 CONDITIONS NOT LISTED BELOW 2.5-3.5 FOR PROSTHETIC HEART VALVE REPLACEMENT 2.5-3.5 RECURRENT THROMBOSIS [facility] PROTHROMBIN TIME INR W/O COUMon 11-05-2023 Interpretation and review of laboratory results Abnormal [facility] PT Coag (PPP) [Time] 26.3 s High [facility] INR 2.74 [facility] Comment on above: DESIRED INR: 2.0-3.0 CONDITIONS NOT LISTED BELOW 2.5-3.5 FOR PROSTHETIC HEART VALVE REPLACEMENT 2.5-3.5 RECURRENT THROMBOSIS [facility] XR lumbar spine 6V w bending on 09-18-2023 XR lumbar spine 6V w bending [facility] [address] [place] [id number] XRay Report Signed Patient: Bill Allen MR#: [id number] [birth year] : 1950 Acct:[id number] Age/Sex: 73 / M ADM Date: 09/18/23 Loc: XD Room: Type: REG CLI Attending Dr: Izabela Blackburn MD Copies to: Izabela Blackburn MD Ordering Provider: Izabela Blackburn MD Date of Service: 09/18/23 XR/XR [...] Encinas Jr., D.OChaitanya09/18/2023 3:18 PM Dictation Location: [place] [address] Transcribed By: [facility] 09/18/23 1518 Dictated By: Guille Encinas Jr, DO 09/18/23 1517 Signed By: 09/18/23 1518 Normal [facility] MR lumbar spine wo conon MR lumbar spine wo con [facility] [address] MRI Report Signed Patient: Bill Allen MR#: [id number] [birth year] : 1950 Acct:[id number] Age/Sex: 72 / M ADM Date: 07/23/23 Loc: Room: Type: REG CLI Attending Dr: Stanley [...] 3:18 PM Dictation Location: RADIO--14 Transcribed By: [facility] 07/23/23 1518 Dictated By: Leland Murillo II, MD 07/23/23 151 Signed By: 07/23/23 1518 Normal [facility] XR hip BI w [id number] 07-15-19 XR hip BI w [id number] [facility] [address] [place] [address] XRay Report Signed Patient: Bill Allen MR#: [id number] [birth year] : 1950 Acct:[id number] Age/Sex: 72 / M ADM Date: 07/15/23 Loc: [facility] Room: Type: [facility] Attending Dr: Stanley Gregory II, MD Copies [...] Irving Saldivar M.D.07/15/2023 10:09 AM Dictation [facility] Transcribed By: [facility] 07/15/23 1009 Dictated By: Irving Saldivar DO 07/15/23 1008 Signed By: 07/15/23 1009 Normal [facility] XR lumbar spine AP/LAT/FLX/E XTon 07-15-2023 XR lumbar spine AP/LAT/FLX/EXT [facility] [address] [place] [address] XRay Report Signed Patient: Bill Allen MR#: [id number] [birth year] : 1950 Acct:[id number] Age/Sex: 72 / M ADM Date: 07/15/23 Loc: SOX Room: Type: [facility] Attending Dr: Stanley Gregory II, MD Copies [...] Vicky Hill M.D.07/15/2023 1:59 PM Dictation Location: [place] [address] Transcribed By: [facility] 07/15/23 1359 Dictated By: Vicky Hill MD 07/15/23 1357 Signed By: 07/15/23 1359 Normal [facility] PROTIMEon 07-17-2022 INR Coag (PPP) [Relative time] 2.75 {INR} Normal [facility] Comment on above: Performed By: #### P T #### [facility] [address] [place] [address] [address] Roya Martin INR GUIDELINES SEE BELOW Normal [facility] Comment on above: Result Comment: ZANDER RED INR: 2.0 - 3.0 CONDITIONS NOT LISTED BELOW 2.5 - 3.5 FOR PROSTHETIC HEART VALVE REPLACEMENT 2.5 - 3.5 RECURRENT THROMBOSIS Performed By: #### P T #### [facility] [address] [place] [address] Dr. Roya Martin PT Coag (PPP) [Time] 27.5 s Critically high 9.0-11.6 [facility] Comment on above: Performed By: #### P T #### [facility] [address] [place] [address] Dr. Roya Martin PROTIMEon 06-04-2022 INR Coag (PPP) [Relative time] 2.97 {INR} Normal [facility] Comment on above: Performed By: #### P T #### [facility] [address] [place] [address] Dr. Roya Martin INR GUIDELINES SEE BELOW Normal [facility] Comment on above: Result Comment: ZANDER RED INR: 2.0 - 3.0 CONDITIONS NOT LISTED BELOW 2.5 - 3.5 FOR PROSTHETIC HEART VALVE REPLACEMENT 2.5 - 3.5 RECURRENT THROMBOSIS Performed By: #### P T #### [facility] [address] [place] [address] Dr. Roya Martin PT Coag (PPP) [Time] 29.6 s Critically high 9.0-11.6 [facility] Comment on above: Performed By: #### P T #### [facility] [address] [place] [address] Dr. Roya Martin PROTIMEon 04-03-2022 INR Coag (PPP) [Relative time] 3.40 {INR} Normal [facility] Comment on above: Performed By: #### P T #### [facility] [address] [place] [address] Dr. Roya Martin INR GUIDELINES SEE BELOW Normal [facility] Comment on above: Result Comment: ZANDER RED INR: 2.0 - 3.0 CONDITIONS NOT LISTED BELOW 2.5 - 3.5 FOR PROSTHETIC HEART VALVE REPLACEMENT 2.5 - 3.5 RECURRENT THROMBOSIS Performed By: #### P T #### [facility] [address] [place] [address] Dr. Roya Martin PT Coag (PPP) [Time] 33.6 s Critically high 9.0-11.6 [facility] Comment on above: Performed By: #### P T #### [facility] [address] [place] [address] [address] Roya Martin PROTIMEon 01-06-2022 INR Coag (PPP) [Relative time] 2.45 {INR} Normal [facility] Comment on above: Performed By: #### P T #### [facility] [address] [place] [address] Dr. Roya Martin INR GUIDELINES SEE BELOW Normal [facility] Comment on above: Result Comment: ZANDER RED INR: 2.0 - 3.0 CONDITIONS NOT LISTED BELOW 2.5 - 3.5 FOR PROSTHETIC HEART VALVE REPLACEMENT 2.5 - 3.5 RECURRENT THROMBOSIS Performed By: #### P T #### [facility] [address] [place] [address] Dr. Roya Martin PT Coag (PPP) [Time] 25.0 s Critically high 9.0-11.6 [facility] Comment on above: Performed By: #### P T #### [facility] [address] [place] [address] CHEST HI RESOLUTIONon [...] KELY TAYLOR Date: 2021-11-27 08:56 Normal [facility] HEMOGLOBINon 11-27-2021 Hemoglobin (Bld) [Mass/Vol] 15.4 g/dL Normal 14.0-18.0 [facility] Comment on above: Performed By: #### H GB #### [facility] [address] [place] [address] Dr. Roya Martin PROTIMEon 11-14-2021 INR Coag (PPP) [Relative time] 2.28 {INR} Normal [facility] Comment on above: Performed By: #### P T #### [facility] [address] [place] [address] Dr. Roya Martin INR GUIDELINES SEE BELOW Normal [facility] Comment on above: Result Comment: ZANDER RED INR: 2.0 - 3.0 CONDITIONS NOT LISTED BELOW 2.5 - 3.5 FOR PROSTHETIC HEART VALVE REPLACEMENT 2.5 - 3.5 RECURRENT THROMBOSIS Performed By: #### P T #### [facility] [address] [place] [address] Dr. Roya Martin PT Coag (PPP) [Time] 23.3 s Critically high 9.0-11.6 [facility] Comment on above: Performed By: #### P T #### [facility] [address] [place] [address] Dr. Roya Martin PROTIMEon 09-09-2021 INR Coag (PPP) [Relative time] 2.70 {INR} Normal [facility] Comment on above: Performed By: #### P T #### [facility] [address] [place] [address] Dr. Roya Martin INR GUIDELINES SEE BELOW Normal [facility] Comment on above: Result Comment: ZANDER RED INR: 2.0 - 3.0 CONDITIONS NOT LISTED BELOW 2.5 - 3.5 FOR PROSTHETIC HEART VALVE REPLACEMENT 2.5 - 3.5 RECURRENT THROMBOSIS Performed By: #### P T #### [facility] [address] [place] [address] Dr. Roya Martin PT Coag (PPP) [Time] 27.3 s Critically high 9.0-11.6 [facility] Comment on above: Performed By: #### P T #### [facility] [address] [address] [address] Roya BYRDOVon 04-16-2017 CNOV Office Visit (CARDFT) -BILL ALLEN ([id number]) 1950 MDate Time Provider Department04/16/17 11:30 AM CHARBEL ZUÑIGA During your visit today, we recorded the following information about you: Pulse Respiration Blood pressure Weight 72/minute 18/minute 125/74 99.3 kg Height 1.778 Aurea Zuñiga MD 04/16/2017 11:49 AM [facility] Department of Cardiovascular MedicineOUTPATIENT VISIT DATE04/16/17OUTPATIENT VISIT TYPEEstablishedPRIMARY CARE PHYSICIAN:Juliet Bolanos, LY6394 [facility] [address]Mtehz: [phone]: [phone] COMPLAINT:PalpitationsHISTORY OF PRESENT ILLNESS: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 [...] Used- Alcohol use NoNo family history on file.NoneALLERGIES:ALLERGIESN o Known AllergiesMEDICATIONS:hydroCHL OROthiazide (HYDRODIURIL, ESIDRIX) 25 mg tablet Take by [...] Negative for: Anxiety, depressionSKIN: Negative for: Rashes, itchingHEMATOLOGICAL/LYMPHATI C: Negative for: Easy bruising, easy bleeding, painfullymph nodesI personally interviewed, confirmed and edited the above information ifobtained by others.PHYSICAL EXAMINATION:BP 125/74 Pulse 72 Resp 18 Ht 177.8 cm (5' 10ANDquot;) Wt 99.3 kg (219lb) SpO2 98% BMI 31.42 kg/i1Bmiavge: Well appearing, in no acute distress. ObeseNeuro: [...] 01/08/16 [place], stage 1 diastology, no [id number] day monitor 02/14/16inus, rare PACs, frequent PVCs [...] with further questions or concerns.Charbel Zuñiga M.D.Joel Hilliardpartment of Cardiovascular MedicineBanner Md Anderson [facility] Center [facility] Institute[address] [address]Youtlh: [phone] Referring Provider: JULIET BOLANOS [[id number]]Allergies As of Date: 04/16/2017(No Known Allergies)Date Reviewed: [...] RN 04/16/2017 11:29 AM >> KELLY HUITRON [facility] Apr 16, 2017 11:29 AM Received from: External Pharmacy >> Jayden Kolb RN 04/16/2017 11:29 AM >> KELLY HUITRON Adriana Apr 16, 2017 11:29 AM LISINOPRIL 10 MG TABLET >> Jayden Kolb RN 04/16/2017 11:29 AM >> KELLY HUITRON [facility] Apr 16, 2017 11:29 AM Received from: External Pharmacy >> Jayden Kolb RN 04/16/2017 11:29 AM >> KELLY HUITRON [facility] Apr 16, 2017 11:29 AMProblem List As Of Date: 04/16/2017(None)Medications Discontinued During This Encounter losartan-hydrochlorothiazide (HYZAAR* 90 t* 3 04/16/2016 04/16/2017 Route: ORAL Sig: Take 1 tablet by mouth once daily. Disc: Erroneous entryDisposition: Return if symptoms worsen or fail to improve.Follow-up and Disposition History RecordedEncounter Number: [id number] Status:Closed by CHARBEL ZUÑIGA MD on 04/16/17 Normal [facility] PROGRESSon 04-13-2017 PROGRESS HNO ID: [id number] thor: Charbel ZuñigaSer: (none)Author Type: PhysicianType: Progress NotesFiled: 04/16/2017 11:49 AMNote Text:Heart and Vascular InstituteNational Park and [facility] Department of Cardiovascular MedicineOUTPATIENT VISIT DATE04/16/17OUTPATIENT VISIT TYPEEstablishedPRVIDANT PUNGO HOSPITALRY CARE PHYSICIAN:Juliet Bolanos, GI4108 [facility] [address]Ezmxo: [phone]: [phone] COMPLAINT:PalpitationsHISTORY OF PRESENT ILLNESS: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 [...] Used- Alcohol use NoNo family history on file.NoneALLERGIES:ALLERGIESN o Known AllergiesMEDICATIONS:hydroCHL OROthiazide (HYDRODIURIL, ESIDRIX) 25 mg tablet Take by [...] Negative for: Anxiety, depressionSKIN: Negative for: Rashes, itchingHEMATOLOGICAL/LYMPHATI C: Negative for: Easy bruising, easy bleeding,painful lymph nodesI personally interviewed, confirmed and edited the above information ifobtained by others.PHYSICAL EXAMINATION:BP 125/74 Pulse 72 Resp 18 Ht 177.8 cm (5' 10 ) Wt 99.3 kg (219lb) SpO2 98% BMI 31.42 kg/u8Fqeqtyc: Well appearing, in no acute distress. ObeseNeuro: Oriented to person, place and time, alert, cooperative.Eyes: Extra ocular movements intact, pupils react to lightNeck: No jugular venous distention, no palpable thyromegaly.Heart: Regular rhythm, S1, S2 normal, no S3, no S4. No murmur.Lungs: Clear to auscultation bilaterally. Good respiratory effort.Abdomen: Soft, nontender, bowel sounds normal, no palpablehepatosplenomegalySki n: No clubbing, no cyanosis.Extremities: Normal pulses in distal lower extremities. Absent lowerextremity edemaCARDIOVASCULAR MEDICINE TESTING:Electrocardiogram: 04/16/16 NormalEchocardiogram: 01/08/16 [place] 55, stage 1 diastology, no [id number] day monitor 02/14/16inus, rare PACs, frequent PVCs [...] or concerns.Charbel Zuñiga M.D.[facility] of Cardiovascular MedicineGerman Hospitalrt and Vascular InstituteLori Ville [id number] [address].[place], [place] [address]Rtpxwv: [phone] Normal [facility] Vital Signs Date Time Vital Sign Value Performing Clinician Facility 03-31-2024 09:35-0500 Body height 175.3 cm Dayron Cervantes MD Work Phone: [facility] 03-31-2024 09:35-0500 Body mass index (BMI) [Ratio] 32.49 kg/m2 Dayron Cervantes MD Work Phone: [facility] 03-31-2024 09:35-0500 Body temperature 97.3 [degF] Dayron Cervantes MD Work Phone: [facility] 03-31-2024 09:35-0500 Body weight 99.79 kg Dayron Cervantes MD Work Phone: [facility] 03-31-2024 09:35-0500 Diastolic blood pressure 62 mm[Hg] Dayron Cervantes MD Work Phone: [facility] 03-31-2024 09:35-0500 Heart rate 93 /min Dayron Cervantes MD Work Phone: [facility] 03-31-2024 09:35-0500 Respiratory rate 20 /min Dayron Cervantes MD Work Phone: [facility] 03-31-2024 09:35-0500 SaO2% (BldA) [Mass fraction] 97 % Dayron Cervantes MD Work Phone: [facility] 03-31-2024 09:35-0500 Systolic blood pressure 146 mm[Hg] Dayron Cervantes MD Work Phone: [facility] 02-24-2024 09:01-0500 Body height 175.3 cm Dayron Cervantes MD Work Phone: [facility] 02-24-2024 09:01-0500 Body mass index (BMI) [Ratio] 33.67 kg/m2 Dayron Cervantes MD Work Phone: [facility] 02-24-2024 09:01-0500 Body temperature 97.11 [degF] Dayron Cervantes MD Work Phone: [facility] 02-24-2024 09:01-0500 Body weight 103.42 kg Dayron Cervantes MD Work Phone: [facility] 02-24-2024 09:01-0500 Diastolic blood pressure 62 mm[Hg] Dayron Cervantes MD Work Phone: [facility] 02-24-2024 09:01-0500 Heart rate 78 /min Dayron Cervantes MD Work Phone: [facility] 02-24-2024 09:01-0500 Respiratory rate 20 /min Dayron Cervantes MD Work Phone: [facility] 02-24-2024 09:01-0500 SaO2% (BldA) [Mass fraction] 95 % Dayron Cervantes MD Work Phone: [facility] 02-24-2024 09:01-0500 Systolic blood pressure 142 mm[Hg] Dayron Cervantes MD Work Phone: [facility] 12-16-2023 10:18-0400 Body height 175.3 cm Jose Yen DPM Work Phone: [facility] 12-16-2023 10:18-0400 Body mass index (BMI) [Ratio] 33.23 kg/m2 Jose Rusher DPM Work Phone: [facility] 12-16-2023 10:18-0400 Body weight 102.06 kg Joseiron Yen DPM Work Phone: [facility] 07-15-2023 09:14-0400 Body height 175.26 cm MD Dayron Cervantes Work Phone: [facility] 07-15-2023 09:14-0400 Body mass index (BMI) [Ratio] 33.5 kg/m2 MD Dayron Cervantes Work Phone: [facility] 07-15-2023 09:14-0400 Body weight 103.02 kg MD Dayron Cervantes Work Phone: [facility] Encounters Encounter Date Encounter Type Care Provider Facility Start: 03-31-2024 End: 03-31-2024 Bamboo flowsheet Dayron Cervantes MD Work Phone: [facility] Start: 03-31-2024 End: 03-31-2024 Bamboo flowsheet Dayron Cervantes MD Work Phone: [facility] Start: 03-31-2024 End: 03-31-2024 Office outpatient visit 15 minutes Dayron Cervantes MD Work Phone: [facility] Comment on above: Gross hematuria (Jelly clare Dx); Prediabetes Start: 03-19-2024 End: 03-19-2024 ambulatory Dayron Cervantes MD Work Phone: [facility] Work Phone: Start: 03-19-2024 End: 03-19-2024 Departed Referred Dayron Cervantes MD Work Phone: [facility] Start: 02-24-2024 End: 02-24-2024 Bamboo flowsheet Dayron Cervantes MD Work Phone: [facility] Start: 02-24-2024 End: 02-24-2024 Bamboo flowsheet Dayron Cervantes MD Work Phone: [facility] Start: 02-24-2024 End: 02-24-2024 Patient encounter procedure Ana Osullivan MARIA VICTORIA Work Phone: [facility] Comment on above: Neoplasm of unspecif ied behavior of bone, soft tissue, and skin (Primary Dx) Start: 02-24-2024 End: 02-24-2024 ambulatory ANA OSULLIVAN Not Available Start: 02-24-2024 End: 02-24-2024 Office outpatient visit 25 minutes Dayron Cervantes MD Work Phone: [facility] Comment on above: Benign hypertension (CMS/HCC) (Primary Dx); Bilateral primary osteoarthritis of hip; Spinal stenosis of lumbar region with radiculopathy; PVC (premature ventricular contraction) Start: 02-24-2024 End: 02-24-2024 ambulatory DAYRON CERVANTES Not Available Start: 02-23-2024 End: 02-23-2024 Clinisync Result Encounter Dayron Cervantes MD Work Phone: [facility] Unsolicited Start: 02-23-2024 End: 02-23-2024 Clinisync Result Encounter Dayron Cervantes MD Work Phone: [facility] Unsolicited Start: 02-09-2024 End: 02-09-2024 Bamboo flowsheet [facility] Work Phone: [facility] Start: 02-09-2024 End: 02-09-2024 Bamboo flowsheet [facility] Work Phone: [facility] Start: 02-09-2024 End: 02-09-2024 Office outpatient new 30 minutes [facility] Work Phone: [facility] Comment on above: Neoplasm of skin (Pr imary Dx); Seborrheic keratosis; Actinic keratosis Start: 02-09-2024 End: 02-09-2024 ambulatory [facility] Not Available Start: 01-27-2024 End: 01-27-2024 Clinisync Result Encounter Dayron Cervantes MD Work Phone: [facility] Unsolicited Start: 01-27-2024 End: 01-27-2024 Clinisync Result Encounter Dayron Cervantes MD Work Phone: [facility] Unsolicited Start: 12-16-2023 End: 12-16-2023 Bamboo flowsheet Jose Yen DPM Work Phone: [facility] Start: 12-16-2023 End: 12-16-2023 Bamboo flowsheet Joseiron Yen DPM Work Phone: [facility] Start: 12-16-2023 End: 12-16-2023 Clinisync Result Encounter Dayron Cervantes MD Work Phone: [facility] Unsolicited Start: 12-16-2023 End: 12-16-2023 Office outpatient new 30 minutes Jose Yen DPM Work Phone: [facility] Comment on above: Hammer toe of right foot (Primary Dx); History of DVT (deep vein thrombosis) Start: 12-16-2023 End: 12-16-2023 ambulatory JOSE YEN Not Available Start: 11-25-2023 End: 11-25-2023 Bamboo flowsheet Staci Omer PT [facility] Start: 11-25-2023 End: 11-25-2023 Bamboo flowsheet Staci Omer PT [facility] Start: 11-25-2023 End: 11-25-2023 ambulatory STACI OMER [facility] Comment on above: Bilateral primary os teoarthritis of hip (Primary Dx); Spinal stenosis, unspecified spinal region Start: 11-11-2023 End: 11-11-2023 Bamboo flowsheet Staci Omer PT [facility] Start: 11-11-2023 End: 11-11-2023 Bamboo flowsheet Staci Omer PT [facility] Start: 11-11-2023 End: 11-11-2023 ambulatory STACI OMER [facility] Comment on above: Bilateral primary os teoarthritis of hip (Primary Dx); Spinal stenosis, unspecified spinal region Start: 11-05-2023 End: 11-05-2023 Bamboo flowsheet Staci Omer PT [facility] Start: 11-05-2023 End: 11-05-2023 Clinisync Result Encounter Dayron Cervantes MD [facility] Start: 11-05-2023 End: 11-05-2023 Clinisync Result Encounter Dayron Cervantes MD Work Phone[facility] Un[facility] Start: 11-05-2023 End: 11-05-2023 ambulatory STACI OMER [facility] Comment on above: Bilateral primary os teoarthritis of hip (Primary Dx); Spinal stenosis, unspecified spinal region Start: 10-20-2023 End: 10-20-2023 Evaluation and management of inpatient VALENTINE GOMEZ [facility] Start: 10-20-2023 End: 10-20-2023 Evaluation and management of inpatient JOANNA FREITAS [facility] Start: 10-16-2023 End: 10-16-2023 ambulatory STACI OMER Not Available Start: 10-01-2023 End: 10-01-2023 ambulatory STACI OMER Not Available Start: 09-29-2023 End: 09-29-2023 ambulatory KELY Bateman [facility] Start: 09-29-2023 Encounter for other preprocedural examination KELY [facility] Start: 09-18-2023 End: 09-18-2023 Patient encounter procedure MD Dayron Cervantes Work Phone: [facility] [place] Work Phone: Start: 09-18-2023 End: 09-18-2023 ambulatory MD Dayron Cervantes Work Phone: [facility] Work Phone: Start: 09-04-2023 End: 09-04-2023 ambulatory DAYRON CERVANTES Not Available Start: 07-23-2023 End: 07-23-2023 Patient encounter procedure MD Dayron Cervantes Work Phone: [facility] [place] Work Phone: Start: 07-23-2023 End: 07-23-2023 ambulatory MD Dayron Cervantes Work Phone: [facility] Work Phone: Start: 07-15-2023 End: 07-15-2023 ambulatory Dayron Cervantes Facility:[facility] Start: 07-15-2023 End: 07-15-2023 Patient encounter procedure MD Dayron Cervantes Work Phone: [facility] Work Phone: Start: 03-04-2023 End: 03-04-2023 [...] Facility:[facility]1 Start: 04-16-2017 End: 04-22-2017 [facility] Procedures Date Procedure Procedure Detail Performing Clinician Start: 03-31-2024 Urnls dip stick/tabl et rgnt non-auto w/o micrscp Dayron Cervantes MD Work Phone: Start: 03-31-2024 Hemoglobin glycosyla sneha a1c Dayron Cervantes MD Work Phone: Start: 02-24-2024 SKIN / NAIL BIOPSY Serena IRENE Work Phone: Start: 02-23-2024 [facility] PROTHROMBIN T YURIDIA INR W/O COUM Dayron Cervantes MD Work Phone: Start: 01-27-2024 [facility] PROTHROMBIN T YURIDIA INR W/O COUM Dayron Cervantes MD Work Phone: Start: 12-16-2023 [facility] PROTHROMBIN T YURIDIA INR W/O COUM Dayron Cervantes MD Work Phone: Start: 11-05-2023 [facility] PROTHROMBIN T YURIDIA INR W/O COUM Dayron Cervantes MD Work Phone: Start: 09-18-2023 X-ray of lumbar spin e, six views including bending views MD Dayron Cervantes Work Phone: Start: 07-23-2023 MR lumbar spine wo con MD Dayron Cervantes Work Phone: Start: 07-15-2023 X-ray of lumbar spin e, four views MD Dayron Cervantes Work Phone: Start: 07-15-2023 Plain x-ray of pelvi s and lower extremity MD Dayron Cervantes Work Phone: Plan of Treatment Date Care Activity Detail Author Start: 09-15-2026 Screening for malignant neoplasm of colon [facility] Start: 05-26-2024 End: 05-26-2024 Patient encounter procedure 05/26/2024 10:30 AM EDT Office Visit [facility] [address] [place] [phone] Dayron Cervantes MD [address] [place] [phone] [facility] Start: 05-18-2024 End: 05-18-2024 Patient encounter procedure 05/18/2024 9:30 AM EST Office Visit [facility] [address] [place] [address] Dayron Cervantes MD [address] [place] [phone] [facility] Start: 05-10-2024 End: 05-10-2024 Patient encounter procedure 05/10/2024 1:30 PM EST Office Visit [facility] [address] [place] [id number] Rowdy Hansen MD [address] [place], [place] [id number] [facility] Start: 03-31-2024 End: 03-31-2024 Patient encounter procedure 03/31/2024 9:30 AM EST Office Visit [facility] [address] [place] [phone] Dayron Cervantes MD [address] [place] [address] Arrived [facility] Comment on above: Arrived Start: 03-19-2024 Bacteria identified in Urine by Culture Urine Culture [facility] Start: 03-19-2024 Urine culture [facility] Start: 02-24-2024 End: 02-24-2024 Patient encounter procedure [facility] Comment on above: Arrived Start: 02-09-2024 End: 02-09-2024 Patient encounter procedure 02/09/2024 2:00 PM EST Office Visit [facility] [address] [place] [address] Ana Osullivan PA [address] [place] [phone] [facility] Start: 12-16-2023 End: 12-16-2023 Patient encounter procedure [facility] Comment on above: Arrived Start: 11-25-2023 End: 11-25-2023 ambulatory [facility] Comment on above: Arrived Start: 11-19-2023 End: 11-19-2023 ambulatory 11/19/2023 10:30 AM EDT Treatment [facility] [address] [place] [address] Staci Omer, PT [facility] Start: 11-15-2023 Influenza vaccination Influenza Vaccine (#1) [facility] Start: 11-11-2023 End: 11-11-2023 ambulatory 11/11/2023 9:30 AM EDT Treatment [facility] [address] [place] [address] Staci Omer, PT [facility] Start: 1950 Medicare Annual Wellness (AWV) Medicare Annual Wellness (AWV) [facility] Start: 1950 Screening for malignant neoplasm of colon [facility] Dermatopathology exam Dermatopat hology exam Pathology and Cytology Timed Neoplasm of unspecified behavior of bone, soft tissue, and skin Release Upon Ordering for 1 Occurrences starting 02/24/2024 [facility] Work Phone: Comment on above: Release Upon Ordering for 1 Occurrences starting 02/24/2024 Immunizations Immunization Date Immunization Notes Care Provider Latrice hayes 12-25-2022 influenza virus vacc ine, unspecified formulation Staci Omer PT [facility] 12-01-2022 pneumococcal conjuga te 20-valent (Prevnar 20) 0.5 ML vaccine Staci Omer PT [facility] Payers Date Payer Category Payer Self-pay 2021 Private Health Insurance [employer] [id number] 2021 Unknown [employer] [id number] 2021-Present [address] [place] [address] [id number] 2015 Medicare [id number]. [id number] 1959 Medicare [id number] 1959 Unknown [id number] 1950 Unknown [id number] 2.16.840.1.637571.3.579.2. 593 1950 Unknown [id number] 2.16.840.1.581740.3.579.2. 593 1950 Unknown [id number] 2.16.840.1.272913.3.579.2. 593 1950 Unknown [id number] 2.16.840.1.295296.3.579.2. 593 1950 Unknown [id number] 2.16.840.1.383193.3.579.2. 593 1950 Unknown [id number] 2.16.840.1.565563.3.579.2. 593 1950 Unknown [id number] 2.16.840.1.974966.3.579.2. 593 1950 Unknown [id number] 2.16.840.1.526016.3.579.2. 1286 1950 Unknown [id number] 2.16.840.1.274093.3.579.2. 1286 1950 Unknown [id number] 2.16.840.1.800133.3.579.2. 1286 1950 Unknown [id number] 2.16.840.1.172520.3.579.2. 1286 1950 Unknown [id number] 2.16.840.1.421406.3.579.2. 1286 1950 Unknown [id number] 2.16.840.1.397389.3.579.2. 1259 1950 Unknown [id number] 2.16.840.1.141622.3.579.2. 1259 1950 Unknown [id number] 2.16.840.1.934062.3.579.2. 1259 1950 Unknown [id number] 2.16.840.1.982986.3.579.2. 9 1950 Unknown [id number] 2.16.840.1.658570.3.579.2. 1259 1950 Unknown [id number] 2.16.840.1.045467.3.579.2. 1259 1950 Unknown [id number] 2.16.840.1.462523.3.579.2. 1259 1950 Unknown [id number] 2.16.840.1.798302.3.579.2. 1259 1950 Unknown [id number] 2.16.840.1.796082.3.579.2. 1259 1950 Unknown [id number] 2.16.840.1.292934.3.579.2. 1259 1950 Unknown [id number] 2.16.840.1.530054.3.579.2. 1259 Unknown [id number] 2.16.840.1.271837.3.579.2. 531 Unknown [id number] 2.16.840.1.271761.3.579.2. 531 Unknown [id number] 2.16.840.1.880830.3.579.2. 531 Unknown [id number] 2.16.840.1.160179.3.579.2. 531 Social History Date Type Detail Facility [facility] if ever smoked [facility] Work Phone: Start: 1950 Sex Assigned At Male F [facility] Start: 03-04-2023 Tobacco [facility] tobacco [facility] Start: 03-04-2023 Tobacco use and exposure Smokeless tobacco non-user [facility] Start: 12-16-2023 End: 03-31-2024 Alcoholic beverage intake Lifetime non-drinker (finding) [facility] Start: 12-16-2023 End: 03-31-2024 History of Social function [facility] Start: 12-16-2023 End: 03-31-2024 Tobacco use panel [facility] Start: 1950 Sex assigned at Not on file [facility] Tobacco smoking stat [facility] Unknown if ever smoked [facility] Work Phone: Start: 03-20-2024 Sex Patient sex un known (finding) [facility] Clinical Notes 11-05-2023 to 03-31-2024 Dayron Cervantes MD - 03/31/2024 10:30 AM John Cervantes MD - 03/31/2024 10:30 AM John Cervantes MD - 03/31/2024 9:30 AM John Cervantes MD - 03/31/2024 9:30 AM EST Note Date & Type Note Facility 03-31-2024 History of Presen t illness Narrative Associated Problem(s): Prediabetes Glucose in urine but A1C 6.0 and still prediabetes. Need low carb diet. Associated Problem(s): Gross hematuria Blood in urine and no pain or symptoms. Urine culture from ER negative. Repeat UA in office showed blood and glucose but no leukocytes and nitrite negative. Send for culture. Refer to urology for possible cystoscopy. Images from the original note were not included. Subjective Patient ID: Bill Allen is a 73 y.o. male who presents for Blood in Urine. HPI Review of Systems Objective Physical Exam Assessment/Plan Images from the original note were not included. Subjective Patient ID: Bill Allen is a 73 y.o. male who presents for Blood in Urine. ER follow up from 03/19 for blood in urine. Developed blood in urine in am and completely red. No pain or burning with urination. No pain in flank or groin. Fell on back day prior and on warfarin. In ER INR 1.7. UA with 100 RBC and given cipro for presumed UTI. Reports blood in urine resolved after about 24 hours. Yesterday again started to have blood in urine. No change in frequency and denies urgency. Continues to deny pain in abdomen or flank. Still with red urine this am. Blood in Urine Pertinent negatives include no abdominal pain, dysuria, nausea or vomiting. Review of Systems Constitutional: Negative for fatigue. Respiratory: Negative for cough, shortness of breath and wheezing. Cardiovascular: Negative for chest pain and palpitations. Gastrointestinal: Negative for abdominal pain, diarrhea, nausea and vomiting. Genitourinary: Positive for hematuria. Negative for dysuria. Objective Physical Exam Constitutional: General: He is not in acute distress. Appearance: Normal appearance. HENT: Head: Normocephalic. Right Ear: Tympanic membrane and ear canal normal. Left Ear: Tympanic membrane and ear canal normal. Eyes: Extraocular Movements: Extraocular movements intact. Pupils: Pupils are equal, round, and reactive to light. Cardiovascular: Rate and Rhythm: Normal rate and regular rhythm. Heart sounds: No murmur heard. No friction rub. No gallop. Pulmonary: Breath sounds: Normal breath sounds. No wheezing, rhonchi or rales. Abdominal: General: Bowel sounds are normal. There is no distension. Palpations: Abdomen is soft. Tenderness: There is no abdominal tenderness. There is no guarding or rebound. Musculoskeletal: Left lower leg: No edema. Neurological: Mental Status: He is alert. Assessment/Plan Problem List Items Addressed This Visit Prediabetes Glucose in urine but A1C 6.0 and still prediabetes. Need low carb diet. Relevant Orders POCT glycosylated hemoglobin (Hb A1C) docked device (Completed) POCT Urinalysis dipstick (Completed) Gross hematuria - Primary Blood in urine and no pain or symptoms. Urine culture from ER negative. Repeat UA in office showed blood and glucose but no leukocytes and nitrite negative. Send for culture. Refer to urology for possible cystoscopy. documented in this encounter [facility] 02-24-2024 History of Presen t illness Narrative Images from the original note were not included. Follow up Diagnosis: NUB Location: Left Synagogue Last visit:02/09/2024 Patient is here for Biopsy today. Established Patient All pertinent medical history, medications, and allergies were reviewed. General Exam: alert, oriented to person, place, and time, normal affect, well appearing Unaccompanied A focused exam completed based on patient reported problems, see below: 1. Neoplasm of unspecified behavior of bone, soft tissue, and skin Left Synagogue Erythematous papule Lesion biopsy Type of biopsy: tangential Informed consent: discussed and consent obtained Informed consent comment: The risks and benefits of the biopsy were discussed. Risks include but are not limited to bleeding, infection, scarring, pain, and nerve damage. An opportunity to ask questions prior to the procedure was permitted and all questions were answered. Patient was prepped and draped in usual sterile fashion: area cleansed with alcohol. Anesthesia: the lesion was anesthetized in a standard fashion Anesthetic: 1% lidocaine w/ epinephrine 1-100,000 buffered w/ 8.4% NaHCO3 Instrument used: DermaBlade Hemostasis achieved with: electrodesiccation Outcome: patient tolerated procedure well Outcome comment: The specimen was placed in a prelabeled formalin container to be sent for pathology Post-procedure details: sterile dressing applied and wound care instructions given Post-procedure details comment: Emphasized need to contact clinic for any signs of infection, uncontrollable bleeding, or complications. Dressing type: bandage Additional details: Photo taken Amount of lidocaine used: 0.6 cc Specimen A - Dermatopathology exam Differential Diagnosis: BCC vs. Other Check Margins: No Size of lesion: 1.2 x 0.8 cm Biopsy today, see procedure note. Next Visit: pending biopsy results documented in this encounter [facility] 02-24-2024 History of Presen t illness Narrative Associated Problem(s): Spinal stenosis of lumbar region with radiculopathy Continued pain and continue PT exercises. Increase activity and walk regularly. Associated Problem(s): PVC (premature ventricular contraction) No symptoms and continue metoprolol. Associated Problem(s): Bilateral primary osteoarthritis of hip Pain unchanged and follow with ortho. Associated Problem(s): Benign hypertension (CMS/HCC) BP controlled and monitor PRN. Discussed DASH diet. Images from the original note were not included. Subjective Patient ID: Bill Allen is a 73 y.o. male who presents for Follow-up (6m). Follow up HTN, back pain, hip pain, and PVCs. Patient feels well today. Checking BP PRN and typically controlled. BP normal today. Taking medication daily and tolerating without side effects. Pain unchanged. Seen by neurosurgeon but didn't want to do back surgery. Continues to have pain in back and limiting activity. If walk will develop pain and ache in bilateral low back and need to stop and rest. Still occasional pain in right hip and into groin. Seen ortho and will have hip replacement next year. PVCs stable. No palpitations or heart racing. Not lightheaded or dizzy. Review of Systems Constitutional: Negative for fatigue. Respiratory: Negative for cough, shortness of breath and wheezing. Cardiovascular: Negative for chest pain and palpitations. Gastrointestinal: Negative for abdominal pain, diarrhea, nausea and vomiting. Genitourinary: Negative for dysuria. Objective Physical Exam Constitutional: General: He is not in acute distress. Appearance: Normal appearance. HENT: Head: Normocephalic. Right Ear: Tympanic membrane and ear canal normal. Left Ear: Tympanic membrane and ear canal normal. Eyes: Extraocular Movements: Extraocular movements intact. Pupils: Pupils are equal, round, and reactive to light. Cardiovascular: Rate and Rhythm: Normal rate and regular rhythm. Heart sounds: No murmur heard. No friction rub. No gallop. Pulmonary: Breath sounds: Normal breath sounds. No wheezing, rhonchi or rales. Abdominal: General: Bowel sounds are normal. There is no distension. Palpations: Abdomen is soft. Tenderness: There is no abdominal tenderness. There is no guarding or rebound. Musculoskeletal: Left lower leg: No edema. Neurological: Mental Status: He is alert. Assessment/Plan Problem List Items Addressed This Visit Benign hypertension (CMS/HCC) - Primary BP controlled and monitor PRN. Discussed DASH diet. Spinal stenosis of lumbar region with radiculopathy Continued pain and continue PT exercises. Increase activity and walk regularly. PVC (premature ventricular contraction) No symptoms and continue metoprolol. Bilateral primary osteoarthritis of hip Pain unchanged and follow with ortho. documented in this encounter [facility] 02-09-2024 History of Presen t illness Narrative Lesions: Location: left mu-ism Duration: years Quality: denies pain, denies itch, denies bleeding Modifying factors: aggravated by picking Associated symptoms: enlarged Treatments: none Lesion # 2: Location: right corner of eye Duration: years Quality: denies pain, denies itch, denies bleeding Modifying factors: aggravated by picking Associated symptoms: rough, scaly Treatments: none Lesion # 3: Location: inside of left ear Duration: year Quality: bleeding, denies pain, denies itch Modifying factors: aggravated by picking Associated symptoms: non-healing Treatments: none New patient All pertinent medical history, medications, and allergies were reviewed. General Exam: alert, oriented to person, place, and time, normal affect, well appearing Unaccompanied A focused exam completed based on patient reported problems, see below: 1. Neoplasm of skin Left Synagogue 1.1 x 1.0 cm Erythematous papule Recommended biopsy today. Lesion is suspicious for BCC and biopsy is needed. He would like to return after the holiday for biopsy. Return in 1-2 weeks. Stressed importance of his return for biopsy 2. Seborrheic keratosis Right Synagogue Stuck on verrucous, variably pigmented papules and plaques. Patient was counseled regarding these benign growths. Removal is normally not necessary, but they may be removed if they are symptomatic or for cosmetic reasons. 3. Actinic keratosis Left Cavum Erythematous scaly papules Sequalae of sun exposure. I explained to the patient that these are precancerous lesions for SCC and should be treated. Patient elected to have cryotherapy at the time of biopsy. Return to clinic in 1-2 weeks. Next Visit: 1-2 week biopsy and LN2 AK documented in this encounter [facility] 12-16-2023 History of Presen t illness Narrative Images from the original note were not included. Subjective Patient ID: Bill Allen is a 73 y.o. male who presents for Toe Problem (73 yo [employer] presents today with concerns of a bent toe on right foot, 4th digit. Pt relates some numbness BL feet. Unsure if issue is vascular or podiatric. Was having pain, but denies pain at this time. ). HPI This is a new patient who presents to clinic with concerns of his right foot. Patient states that about 2 months ago he went off of his blood thinner for a procedure. After he had discontinued his blood thinner he started having pain in the right 4th toe. Patient thought it was due to the fact that his toe was curling over. Symptoms were present with walking, standing. Patient states that once he started his blood thinner backup he did not notice the pain as much. Over the last few weeks he has had no pain at all. He thinks that the issue was due to not being on his blood thinner. Review of Systems Constitutional: Negative for activity change and fatigue. Respiratory: Negative for chest tightness and shortness of breath. Cardiovascular: Positive for leg swelling. Negative for chest pain. Musculoskeletal: Negative for arthralgias and joint swelling. Skin: Negative for color change and wound. Neurological: Positive for numbness. Negative for weakness. Psychiatric/Behavioral: Negative for agitation and behavioral problems. Hematological: Does not bruise/bleed easily. Allergic/Immunologic: Negative for immunocompromised state. Past medical History Past Medical History: Diagnosis Date Arthritis Hypertension ([facility]) Medications Current Outpatient Medications: cholecalciferol (Vitamin D-3) 50 MCG (2000 UT) capsule, Take 2,000 Units by mouth in the morning., Disp: , Rfl: coenzyme Q-10 100 MG capsule, Take 1 capsule by mouth 1 (one) time each day at the same time, Disp: , Rfl: Dosbmcdwnjg-Fblntghpo-Ntf C-Mn (Glucosamine 1500 Complex) capsule, Take 1 capsule by mouth in the morning., Disp: , Rfl: lisinopril 20 MG tablet, Take 1 tablet (20 mg) by mouth Daily, Disp: 90 tablet, Rfl: 3 metoprolol tartrate (Lopressor) 50 MG tablet, Take 1 tablet (50 mg) by mouth in the morning and 1 tablet (50 mg) before bedtime., Disp: 180 tablet, Rfl: 3 multivitamin (Theragran) tablet, Take 1 tablet by mouth in the morning., Disp: , Rfl: simvastatin (Zocor) 20 MG tablet, Take 1 tablet (20 mg) by mouth at bedtime, Disp: 90 tablet, Rfl: 3 terazosin (Hytrin) 10 MG capsule, Take 1 capsule (10 mg) by mouth at bedtime, Disp: 90 capsule, Rfl: 3 warfarin (Coumadin) 5 MG tablet, Take 1 tablet daily, Disp: 90 tablet, Rfl: 3 dicyclomine (Bentyl) 20 MG tablet, Take 20 mg by mouth 4 (four) times a day as needed, Disp: , Rfl: pneumococcal conjugate 20-valent (Prevnar 20) 0.5 ML vaccine, as directed Intramuscular once for 1 days, Disp: , Rfl: Allergies Patient has no known allergies. Past Surgical History No past surgical history on file. Family History No family history on file. Objective Physical Exam Constitutional: General: He is not in acute distress. HENT: Head: Normocephalic and atraumatic. Cardiovascular: Pulses: Normal pulses. Pulmonary: Effort: Pulmonary effort is normal. No respiratory distress. Musculoskeletal: Cervical back: Neck supple. Comments: Right foot: Adductovarus rotation of the 4th, 5th toes. No interdigital lesions. No tenderness to palpation. Adductovarus rotation is flexible in nature. He also has some plantar flexion contracture of digits 2, 3, 4 at the PIPJ which is semi flexible in nature. Skin: Capillary Refill: Capillary refill takes less than 2 seconds. Comments: No ulcers or lesions noted. Neurological: Mental Status: He is alert. Comments: No loss of protective sensation, gross sensation intact. Psychiatric: Mood and Affect: Mood normal. Behavior: Behavior normal. Assessment/Plan ICD-10-CM 1. Hammer toe of right foot M20.41 2. History of DVT (deep vein thrombosis) Z86.718 Patient examined and evaluated. At this point symptoms have completely resolved. Patient believes that his symptomatology is the result of going off of his blood thinner. I think that this is not unreasonable as he does have a history of blood clots bilaterally. I do not see any sign of current ischemic changes or concern for clot. He does have adductovarus rotation of the 4th and 5th toes with plantar flexion contracture of the 4th toe as well which seems to underlying the 3rd toe with weight-bearing. Discussed treatment options. At this time since he has no symptomatology I recommend that he pad the area up as needed to accommodate any symptoms. Discuss surgical options in the future if he continues to have issues with the contracture of the toes. This could range from in office flexor tenotomy to PIPJ arthrodesis. For now I will see him back as needed. This note was created with the assistance of a speech recognition program. While intending to generate a timely document that accurately reflects the content of the visit, no guarantee can be provided that every grammatical or spelling mistake has been or will be identified or corrected. Thank you for your understanding. Jose Yen DPM documented in this encounter [facility] 11-25-2023 History of Presen t illness Narrative Physical Therapy Treatment Visit / DISCHARGE Patient Name: Bill Allen Today's Date: 11/25/2023 Encounter Diagnoses Name Primary? Bilateral primary osteoarthritis of hip Yes Spinal stenosis, unspecified spinal region Visit number: 5 Timed Code Treatment Minutes: 55 minutes Total Treatment Time: 55 minutes Time In: 1000 Time Out: 1055 History: Pt states he has been diagnosed with spinal stenosis in both his neck and back. Was also told 2 years ago he would need LEONARDO. Was seen recently by ortho who believes can help but there are also issues with his back he would like addressed prior to doing any surgery. Pt states he used to walk about 15 miles a week and now is unable to walk any significant distance. ROM of right hip has been worsening. Pt now having difficulty putting on shoes and socks. Precautions: [place]; h/o blood clots, on thinners Subjective: Pt states he is doing a lot better. Has been walking a bit better; however, recently started to have problems with great toe and has an appointment with podiatry. Pt states he is pleased with progress and plans to continue with exercises at home. Pain: 0/10 Objective: PT Evaluation (10/01/2023) Right HIP AROM: 81 degrees flexion PROM: 100 degrees flexion, 10 degrees abduction, lacks 8 degrees from neutral IR MMT: right hip flexion 4+/5, abduction and ER 4 to 4+/5; right quad 4+/5; ankle DF 4+/5 Muscle length: 90/90 HS: right 45 degrees knee flexion, left 41 degrees knee flexion Special Test: Pain right hip with PRAVIN and hip scour Functional: Five Time Sit to Stand: 13.95 seconds with arms across chest Treatment: Education: HEP education with demonstration, Educated on Eval Findings and POC Manual Therapy: Passive ROM, Joint mobilization, Soft Tissue Mobilization, Myofascial Release, Muscle Energy Technique, Neural Mobilization, Myofascial Cupping, Dry Needling, IASTM, and Scar mobilization as needed. () Therapeutic Exercise: Strength, Endurance, Flexibility, ROM, HEP, Neural Mobilization, Power, and Core Stability as needed. Reviewed and progressed HEP this date to include hip strengthening for improved stability. Reviewed HEP with good pt understanding. Discussed performing hip abd and knee flexion with band at ankles with good understanding. Attempted hip flexor stretch; however, unable to perform without increase pain in right hip joint. Added ant and lateral step ups to home program, as well as squatting at counter. Verbal cues to minimize UE assist with squatting; demo good understanding. Goals addressed for discharge. (55 minutes) Therapeutic Activity: Exercises to improve dynamic activities, functional tasks, functional mobility to return to prior activity level as needed. Neuromuscular re-education: Balance Training, Muscle Facilitation, Dynamic Stability, Core Stabilization, and Blood Flow Restriction Training (BFRT) as needed. Modalities: Heat, Ice, Electrical Stimulation, Ultrasound, Cervical Mechanical Traction, Lumbar Mechanical Traction, Iontophoresis, and Fluidotherapy as needed. HP to low back in supine before manual and there ex. Assessment: Pt has completed 5 PT session for right hip and low back pain. ROM of right hip is 21 degrees abduction and IR to neutral. Strength right hip flexion, abduction, and ER 5/5. Pt completes 5 sit to stands in 8.58 seconds. LEFS score 48/80. We will now discharge to home program with 6 or 7 goals met. Outcome Measure: Lower Extremity Functional Scale (LEFS): 36/80 Rehab Diagnosis: right hip pain and weakness; low back pain causing difficulty walking. Short Term Goal: To be met in 2 weeks Goal 1: Pt to be instructed in home exercise program. - met [employer] Goals: To be met in 10 weeks Goal 1: Pt to report independence and compliance with home program. - met Goal 2: Pt to achieve 5/5 strength right hip strength to assist with functional mobility. - met Goal 3: Pt to achieve 20 degrees of right hip abduction to assist with ADL's. - met Goal 4: Pt to achieve 10 degrees right hip IR ROM indicating improved mobility. - not met Goal 5: Pt to complete 5 sit to stands in less than 10.0 seconds without UE assistance indicating improved functional strength of LE's. - met Goal 6: Pt to score no less than 48/80 on LEFS indicating improved QOL. - met Discharge to home program. documented in this encounter [facility] 11-11-2023 History of Presen t illness Narrative Physical Therapy Treatment Visit Patient Name: Bill Allen Today's Date: 11/11/2023 Encounter Diagnoses Name Primary? Bilateral primary osteoarthritis of hip Yes Spinal stenosis, unspecified spinal region Visit number: 4 Timed Code Treatment Minutes: 42 minutes Total Treatment Time: 42 minutes Time In: 929 Time Out: 1014 History: Pt states he has been diagnosed with spinal stenosis in both his neck and back. Was also told 2 years ago he would need LEONARDO. Was seen recently by ortho who believes can help but there are also issues with his back he would like addressed prior to doing any surgery. Pt states he used to walk about 15 miles a week and now is unable to walk any significant distance. ROM of right hip has been worsening. Pt now having difficulty putting on shoes and socks. Precautions: [place]; h/o blood clots, on thinners Subjective: Pt Pain: 0-1/10 Objective: PT Evaluation (10/01/2023) Right HIP AROM: 81 degrees flexion PROM: 100 degrees flexion, 10 degrees abduction, lacks 8 degrees from neutral IR MMT: right hip flexion 4+/5, abduction and ER 4 to 4+/5; right quad 4+/5; ankle DF 4+/5 Muscle length: 90/90 HS: right 45 degrees knee flexion, left 41 degrees knee flexion Special Test: Pain right hip with PRAVIN and hip scour Functional: Five Time Sit to Stand: 13.95 seconds with arms across chest Treatment: Education: HEP education with demonstration, Educated on Eval Findings and POC Manual Therapy: Passive ROM, Joint mobilization, Soft Tissue Mobilization, Myofascial Release, Muscle Energy Technique, Neural Mobilization, Myofascial Cupping, Dry Needling, IASTM, and Scar mobilization as needed. () Therapeutic Exercise: Strength, Endurance, Flexibility, ROM, HEP, Neural Mobilization, Power, and Core Stability as needed. Reviewed and progressed HEP this date to include hip strengthening for improved stability. Progressed to standing ex this date with good pt abida. (42 minutes) Therapeutic Activity: Exercises to improve dynamic activities, functional tasks, functional mobility to return to prior activity level as needed. Neuromuscular re-education: Balance Training, Muscle Facilitation, Dynamic Stability, Core Stabilization, and Blood Flow Restriction Training (BFRT) as needed. Modalities: Heat, Ice, Electrical Stimulation, Ultrasound, Cervical Mechanical Traction, Lumbar Mechanical Traction, Iontophoresis, and Fluidotherapy as needed. HP to low back in supine before manual and there ex. Assessment: Pt has completed 4 PT session for right hip and low back pain. Progressed to standing ex this date with LE fatigue noted; no complaints of low back pain. Discussed benefit from cycling for ex vs walking with good pt understanding. Reviewed appropriate ex reps and sets with good understanding. Will re-assess in 2 weeks. Outcome Measure: Lower Extremity Functional Scale (LEFS): 36/80 Rehab Diagnosis: right hip pain and weakness; low back pain causing difficulty walking. Short Term Goal: To be met in 2 weeks Goal 1: Pt to be instructed in home exercise program. Detention Goals: To be met in 10 weeks Goal 1: Pt to report independence and compliance with home program. Goal 2: Pt to achieve 5/5 strength right hip strength to assist with functional mobility. Goal 3: Pt to achieve 20 degrees of right hip abduction to assist with ADL's. Goal 4: Pt to achieve 10 degrees right hip IR ROM indicating improved mobility. Goal 5: Pt to complete 5 sit to stands in less than 10.0 seconds without UE assistance indicating improved functional strength of LE's. Goal 6: Pt to score no less than 48/80 on LEFS indicating improved QOL. Pt will benefit from skilled PT for 2x/week from 10/01/2023 to 12/10/2023 to address the above impairments. I hereby deem this POC medically necessary. Please sign below. Date: documented in this encounter [facility] 11-05-2023 History of Presen t illness Narrative Physical Therapy Treatment Visit Patient Name: Bill Allen Today's Date: 11/05/2023 Encounter Diagnoses Name Primary? Bilateral primary osteoarthritis of hip Yes Spinal stenosis, unspecified spinal region Visit number: 3 Timed Code Treatment Minutes: 40 minutes Total Treatment Time: 50 minutes Time In: 1030 Time Out: 1120 History: Pt states he has been diagnosed with spinal stenosis in both his neck and back. Was also told 2 years ago he would need LEONARDO. Was seen recently by ortho who believes can help but there are also issues with his back he would like addressed prior to doing any surgery. Pt states he used to walk about 15 miles a week and now is unable to walk any significant distance. ROM of right hip has been worsening. Pt now having difficulty putting on shoes and socks. Precautions: [place]; h/o blood clots, on thinners Subjective: Pt states he has been doing stretches at home and believes pain is slightly improved. Pt states he can only stand for limited time due to pain in low back. Hip interfering more with ROM. Pain: 0-1/10 Objective: PT Evaluation (10/01/2023) Right HIP AROM: 81 degrees flexion PROM: 100 degrees flexion, 10 degrees abduction, lacks 8 degrees from neutral IR MMT: right hip flexion 4+/5, abduction and ER 4 to 4+/5; right quad 4+/5; ankle DF 4+/5 Muscle length: 90/90 HS: right 45 degrees knee flexion, left 41 degrees knee flexion Special Test: Pain right hip with PRAVIN and hip scour Functional: Five Time Sit to Stand: 13.95 seconds with arms across chest Treatment: Education: HEP education with demonstration, Educated on Eval Findings and POC Manual Therapy: Passive ROM, Joint mobilization, Soft Tissue Mobilization, Myofascial Release, Muscle Energy Technique, Neural Mobilization, Myofascial Cupping, Dry Needling, IASTM, and Scar mobilization as needed. Gentle MET to increase right hip ROM. Long axis distraction and mobs to right hip with relief noted. Lumbar distraction in supine with ball under knees. (16 minutes) Therapeutic Exercise: Strength, Endurance, Flexibility, ROM, HEP, Neural Mobilization, Power, and Core Stability as needed. Reviewed and progressed HEP this date to include core strengthening for improved lumbar stability. (24 minutes) Therapeutic Activity: Exercises to improve dynamic activities, functional tasks, functional mobility to return to prior activity level as needed. Neuromuscular re-education: Balance Training, Muscle Facilitation, Dynamic Stability, Core Stabilization, and Blood Flow Restriction Training (BFRT) as needed. Modalities: Heat, Ice, Electrical Stimulation, Ultrasound, Cervical Mechanical Traction, Lumbar Mechanical Traction, Iontophoresis, and Fluidotherapy as needed. HP to low back in supine before manual and there ex. Assessment: Pt has completed 3 PT session for right hip and low back pain. Core strength is fair. Limited progression of right hip strengthening due to pt c/o mild increase discomfort this date. Will continue. Outcome Measure: Lower Extremity Functional Scale (LEFS): 36/80 Rehab Diagnosis: right hip pain and weakness; low back pain causing difficulty walking. Short Term Goal: To be met in 2 weeks Goal 1: Pt to be instructed in home exercise program. [employer] Goals: To be met in 10 weeks Goal 1: Pt to report independence and compliance with home program. Goal 2: Pt to achieve 5/5 strength right hip strength to assist with functional mobility. Goal 3: Pt to achieve 20 degrees of right hip abduction to assist with ADL's. Goal 4: Pt to achieve 10 degrees right hip IR ROM indicating improved mobility. Goal 5: Pt to complete 5 sit to stands in less than 10.0 seconds without UE assistance indicating improved functional strength of LE's. Goal 6: Pt to score no less than 48/80 on LEFS indicating improved QOL. Pt will benefit from skilled PT for 2x/week from 10/01/2023 to 12/10/2023 to address the above impairments. I hereby deem this POC medically necessary. Please sign below. Date: documented in this encounter [facility] Evaluation note Diagnosis Onset Date Bilateral primary osteoarthritis of hip acute Spinal stenosis [facility] Work Phone: Evaluation note* Diagnosis Hammer toe of right foot- Primary History of DVT (deep vein thrombosis) documented in this encounter [facility]* Diagnosis Benign hypertension (CMS/HCC)- Primary Essential hypertension, benign Spondylosis of thoracic region without myelopathy or radiculopathy Irritable bowel syndrome with diarrhea Irritable bowel syndrome PVC (premature ventricular contraction) Other premature beats Chronic sinusitis, unspecified location BPH associated with nocturia Spinal stenosis of lumbar region with radiculopathy Benign hypertension (CMS/HCC)- Primary Essential hypertension, benign Spinal stenosis of lumbar region with radiculopathy Chronic rhinosinusitis Unspecified sinusitis (chronic) PVC (premature ventricular contraction) Other premature beats Vitamin D deficiency Dyslipidemia (CMS/HCC) Other and unspecified hyperlipidemia Prediabetes Other abnormal glucose Encounter for long-term (current) use of medications Encounter for long-term (current) use of other medications Screening PSA (prostate specific antigen) Special screening for malignant neoplasm of prostate Obesity (BMI 30-39.9) Colon cancer screening Special screening for malignant neoplasms, colon Pulmonary fibrosis, unspecified (CMS/HCC) Atherosclerosis of renal artery (CMS/HCC) Atherosclerosis of renal artery Pulmonary fibrosis (CMS/HCC) Postinflammatory pulmonary fibrosis Renal artery stenosis (CMS/HCC) Atherosclerosis of renal artery Neoplasm of skin- Primary Seborrheic keratosis Actinic keratosis documented in this encounter [facility]* Diagnosis Benign hypertension (CMS/HCC)- Primary Essential hypertension, benign Spondylosis of thoracic region without myelopathy or radiculopathy Irritable bowel syndrome with diarrhea Irritable bowel syndrome PVC (premature ventricular contraction) Other premature beats Chronic sinusitis, unspecified location BPH associated with nocturia Spinal stenosis of lumbar region with radiculopathy Benign hypertension (CMS/HCC)- Primary Essential hypertension, benign Spinal stenosis of lumbar region with radiculopathy Chronic rhinosinusitis Unspecified sinusitis (chronic) PVC (premature ventricular contraction) Other premature beats Vitamin D deficiency Dyslipidemia (CMS/HCC) Other and unspecified hyperlipidemia Prediabetes Other abnormal glucose Encounter for long-term (current) use of medications Encounter for long-term (current) use of other medications Screening PSA (prostate specific antigen) Special screening for malignant neoplasm of prostate Obesity (BMI 30-39.9) Colon cancer screening Special screening for malignant neoplasms, colon Pulmonary fibrosis, unspecified (CMS/HCC) Atherosclerosis of renal artery (CMS/HCC) Atherosclerosis of renal artery Pulmonary fibrosis (CMS/HCC) Postinflammatory pulmonary fibrosis Renal artery stenosis (CMS/HCC) Atherosclerosis of renal artery Benign hypertension (CMS/HCC)- Primary Essential hypertension, benign Bilateral primary osteoarthritis of hip Spinal stenosis of lumbar region with radiculopathy PVC (premature ventricular contraction) Other premature beats documented in this encounter [facility]* Diagnosis Benign hypertension (CMS/HCC)- Primary Essential hypertension, benign Spondylosis of thoracic region without myelopathy or radiculopathy Irritable bowel syndrome with diarrhea Irritable bowel syndrome PVC (premature ventricular contraction) Other premature beats Chronic sinusitis, unspecified location BPH associated with nocturia Spinal stenosis of lumbar region with radiculopathy Benign hypertension (CMS/HCC)- Primary Essential hypertension, benign Spinal stenosis of lumbar region with radiculopathy Chronic rhinosinusitis Unspecified sinusitis (chronic) PVC (premature ventricular contraction) Other premature beats Vitamin D deficiency Dyslipidemia (CMS/HCC) Other and unspecified hyperlipidemia Prediabetes Other abnormal glucose Encounter for long-term (current) use of medications Encounter for long-term (current) use of other medications Screening PSA (prostate specific antigen) Special screening for malignant neoplasm of prostate Obesity (BMI 30-39.9) Colon cancer screening Special screening for malignant neoplasms, colon Pulmonary fibrosis, unspecified (CMS/HCC) Atherosclerosis of renal artery (CMS/HCC) Atherosclerosis of renal artery Pulmonary fibrosis (CMS/HCC) Postinflammatory pulmonary fibrosis Renal artery stenosis (CMS/HCC) Atherosclerosis of renal artery Benign hypertension (CMS/HCC)- Primary Essential hypertension, benign Bilateral primary osteoarthritis of hip Spinal stenosis of lumbar region with radiculopathy PVC (premature ventricular contraction) Other premature beats Neoplasm of unspecified behavior of bone, soft tissue, and skin- Primary documented in this encounter [facility]* Diagnosis Bilateral primary osteoarthritis of hip- Primary Spinal stenosis, unspecified spinal region documented in this encounter [facility]* Diagnosis Bilateral primary osteoarthritis of hip- Primary Spinal stenosis, unspecified spinal region documented [facility]: Evaluation note* Diagnosis Benign hypertension (CMS/HCC)- Primary Essential hypertension, benign Spondylosis of thoracic region without myelopathy or radiculopathy Irritable bowel syndrome with diarrhea Irritable bowel syndrome PVC (premature ventricular contraction) Other premature beats Chronic sinusitis, unspecified location BPH associated with nocturia Spinal stenosis of lumbar region with radiculopathy Benign hypertension (CMS/HCC)- Primary Essential hypertension, benign Spinal stenosis of lumbar region with radiculopathy Chronic rhinosinusitis Unspecified sinusitis (chronic) PVC (premature ventricular contraction) Other premature beats Vitamin D deficiency Dyslipidemia (CMS/HCC) Other and unspecified hyperlipidemia Prediabetes Other abnormal glucose Encounter for long-term (current) use of medications Encounter for long-term (current) use of other medications Screening PSA (prostate specific antigen) Special screening for malignant neoplasm of prostate Obesity (BMI 30-39.9) Colon cancer screening Special screening for malignant neoplasms, colon Pulmonary fibrosis, unspecified (CMS/HCC) Atherosclerosis of renal artery (CMS/HCC) Atherosclerosis of renal artery Pulmonary fibrosis (CMS/HCC) Postinflammatory pulmonary fibrosis Renal artery stenosis (CMS/HCC) Atherosclerosis of renal artery Benign hypertension (CMS/HCC)- Primary Essential hypertension, benign Bilateral primary osteoarthritis of hip Spinal stenosis of lumbar region with radiculopathy PVC (premature ventricular contraction) Other premature beats Gross hematuria- Primary Prediabetes Other abnormal glucose documented in this encounter [facility] Summary Purpose Family History No Family History Records FoundNo Family History Records FoundNo Family History Records FoundNo Family History Records FoundNo Family History Records Found Advance Directives Advance Directive Response Recorded Date/ Time Advance Directives No June 16 4:32pm Advance Directive Response Recorded Date/ Time Advance Directives No June 16 3:32pm Chief Complaint and Reason for Visit Chief Complaint [place] HIP PAIN NX M25.551 - Pain in right hip M48.00 Reason for Visit Bilateral primary os teoarthritis of hip Spinal stenosis Chief Complaint [place] HIP PAIN NX M25.551 - Pain in right hip M48.00 M54.50 Reason for Visit Bilateral primary os teoarthritis of hip Spinal stenosis Chief Complaint Admit Date Unknown March 19, 2024 12 :40pm Additional Source Comments (unrecognized sect ion and content) No Status Records FoundNo Status Records FoundNo Status Records FoundNo Status Records FoundNo Status Records Found INFORMATION SOURCE (unrecogn ized section and content) DATE CREATED AUTHOR 09/07/2017 [facility] DATE CREATED AUTHOR AUTHOR'S ORGANIZ ATION 07/24/2022 [facility] DATE CREATED AUTHOR AUTHOR'S ORGANIZ ATION 10/22/2023 [facility] DATE CREATED AUTHOR AUTHOR'S ORGANIZ ATION 02/27/2024 [facility] DATE CREATED AUTHOR AUTHOR'S ORGANIZ ATION 03/26/2024 [facility] Care Teams (unrecognized sec tion and content) [...] September 18, 2023 End: September 18, 2023 Izabela Blackburn MD Attending Provider Active Star t: September 18, 2023 End: September 18, 2023 Rehabilitation Counsellor Relationship Specialty Start Date End Date Dayron Cervantes MD [address] [place] [address] PCP - General Family Medicine 09/04/23 Rehabilitation Counsellor Relationship Specialty Start Date End Date Dayron Cervantes MD [address] [place] [phone] PCP - General Family Medicine 09/04/23 Rehabilitation Counsellor Relationship Specialty Start Date End Date Dayron Cervantes MD [address] [place] [phone] PCP - General Family Medicine 09/04/23 Rehabilitation Counsellor Relationship Specialty Start Date End Date Dayron Cervantes MD [address] [place] [phone] PCP - General Family Medicine 09/04/23 Rehabilitation Counsellor Relationship Specialty Start Date End Date Dayron Cervantes MD [address] [place] [phone] PCP - General Family Medicine 09/04/23 Rehabilitation Counsellor Relationship Specialty Start Date End Date Dayron Cervantes MD [address] [place] [phone] PCP - General Family Medicine 09/04/23 Rehabilitation Counsellor Relationship Specialty Start Date End Date Dayron Cervantes MD [address] [place] [address] PCP - General Family Medicine 09/04/23 Rehabilitation Counsellor Relationship Specialty Start Date End Date Dayron Cervantes MD [address] [place] [phone] PCP - General Family Medicine 09/04/23 Rehabilitation Counsellor Relationship Specialty Start Date End Date Dayron Cervantes MD [address] [place] [phone] PCP - General Family Medicine 09/04/23 Rehabilitation Counsellor Relationship Specialty Start Date End Date Dayrno Cervantes MD [address] [place] [phone] PCP - General Family Medicine 09/04/23 Rehabilitation Counsellor Relationship Specialty Start Date End Date Dayron Cervantes MD [address] [place] [phone] PCP - General Family Medicine 09/04/23 Team Status: Inactive Member Role Status Dates Dayron Cervantes MD Primary Care Provider Active S tart: March 19, 2024 End: March 19, 2024 Kevan Berrios DO Attending Provider Active Start: March 19, 2024 End: March 19, 2024 Rehabilitation Counsellor Relationship Specialty Start Date End Date Dayron Cervantes MD [address] [place] [phone] PCP - General Family Medicine 09/04/23 Rehabilitation Counsellor Relationship Specialty Start Date End Date Dayron Cervantes MD [address] [place] [phone] PCP - General Family Medicine 09/04/23 Goals (unrecognized section and content) Goals may be documented in a n alternate sectionGoals may be documented in an alternate sectionGoals may be documented in an alternate section Reason for Visit (unrecogniz ed section and content) Reason Comments Toe Problem 73 yo [employer] presents to day with concerns of a bent toe on right foot, 4th digit. Pt relates some numbness BL feet. Unsure if issue is vascular or podiatric. Was having pain, but denies pain at this time. Reason Comments Follow-up 6m Reason Comments Follow-up Specialty Diagnoses / Procedures Referred By Sabi t Referred To Contact Physical Therapy Diagnoses Bilateral primary osteoarthritis of hip Spinal stenosis, site unspecified Procedures DE PHYSICAL THERAPY EVALUATION LOW COMPLEX 20 MINS Izabela Blackburn MD [address] [facility], [address] [place] [address] Staci Omer PT Referral ID Status Reason Start Date Expiration Date V isits Requested Visits Authorized [id number] Authorized 09/24/2023 03/22/2024 30 30 Referral ID Status Reason Start Date Expiration Date Visits Re quested Visits Authorized [id number] Closed 09/24/2023 03/22/2024 30 30 Reason Comments Blood in Urine FOR RECORDS PERTAINING TO PATIENTS WHO ARE [...] BE BASED ON THE PRIMARY CLINICAL RECORDS. [employer] provides no warranty or guarantee of the accuracy or completeness of information in this document.
== END 2024-03-31 20:18 | disposition home or self-care (01) ==
LOC: LAB 20:17
PROVIDERS: PCP Family Medicine; Visit Provider Family Medicine
DX: R31.0 Gross hematuria (principal)
CPT/HCPCS: 87086

== ENCOUNTER 2024-04-19 10:08 | Outpatient (OUT) | payer MEDICARE, OTHER, SELFPAY ==
--- NOTE | 2024-04-19 10:13 | CT_ITS ---
The [address] [address] Patient Name: BILL HULL MRN: [id number] date: 1950 Sex: M Assigned Patient Location: CT Current Patient Location: CT Accession/Order Number: [id number] Exam Date: 04/19/2024 10:24 Report Date: 04/19/2024 13:25 At the request of: MICAELA IRELAND Procedure: CT abdomen pelvis wo/w con EXAM: CT scan of the abdomen and pelvis without and with IV contrast using 100 mL of IV iodinated contrast. Dose reduction technique used: Automated exposure control and/or adjustment of the mA and/or kV according to patient size and/or use of iterative reconstruction technique. REASON FOR EXAM: Gross Hematuria, Kidney Stones COMPARISON: None FINDING Contour irregularity along the dome of the bladder, more prominent on the left side of the bladder dome where there is focal thickening and a filling defect protruding into the lumen. Filling defect protruding into the bladder along the posterior bladder base is likely from a prominent median lobe of the prostate. No hydronephrosis. No filling defects in the renal collecting systems or ureters evident. High attenuation along the renal pyramids bilaterally. Small bladder diverticulum. Multiple small bilateral renal cysts. Stenosis at the origin of the superior mesenteric artery is either moderate or severe. Mild fibrotic changes in both lungs. Normal appendix. No free intraperitoneal air. No free fluid in the abdomen or pelvis. No dilated or thickened loops of small bowel or colon. No ureteral or bladder calculi. No hydronephrosis. Liver, pancreas, spleen, bilateral kidneys, and bilateral adrenal glands are otherwise unremarkable. No lymphadenopathy in the abdomen or pelvis. Remainder unremarkable. CT/CT abdomen pelvis wo/w con IMPRESSION: 1. 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 Recommend follow-up with urology. 2. Possible bilateral nephrolithiasis. 3. 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 Electronically authenticated by: RUTH CHEW Date: 04/19/2024 13:25
--- OUTSIDE RECORDS SUMMARY | 2024-04-19 10:13 | XMS_ITS | CCD ---
Author Organization [facility] CliniSymd Care Team Providers Care Government Property Inspector Name Role Phone CHARBEL ZUÑIGA Unavailable Unavailable JULIET BOLANOS Unavailable Unavailable NADERER, DR DAYRON Mckinney Admitting Unavailable NADERER, DR DAYRON Mckinney Attending Unavailable NADERER, DR DAYRON Mckinney Consulting Unavailable NADERER, DR DAYRON Mckinney Primary Care Unavailable NADERER, DR ADYRON Mckinney Admitting Unavailable NADERER, DR DAYRON Mckinney [...] Attending Unavailable SAMSA ., OUSMANE Admitting Unavailable ONTARIO, DR KELY Rae Consulting Unavailable SAMSA ., OUSMANE Attending Unavailable NADERER, DR DAYRON Mckinney Primary Care Unavailable SAMSA ., OUSMANE Consulting Unavailable MD Dayron Cervantes Primary Care Provider MD Stanley Gregory II Attending Provider MD Izabela Blackburn Attending Provider KELY GARZA Referring Unavailable NADERER, DAYRON Primary Care Unavailable KELY GARZA Attending Unavailable KELY GARZA Referring Unavailable NADEREJayden, DAYRON Primary Care Unavailable JOANNA FREITAS Admitting Unavailable JOANNA FREITAS Attending Unavailable JOANNA FREITAS Referring Unavailable VALENTINE GOMEZ Attending Unavailable DAYRON CERVANTES Primary Care Unavailable Dayron Cervantes MD Primary Care Provider Dayron Cervantes MD Primary Care Provider [phone] Kevan Berrios DO Attending Provider BlackburnTylore E Attending Unavailable Helen, Dayron Primary Care Unavailable Kb, Izabela E Admitting Unavailable Franklynerejayden, Dayron Primary Care Unavailable Colt NIÑO, Stanley Bateman Attending Unavailabl e [place] II, Stanley Bateman Admitting Unavailabl e Naderer, Dayron Primary Care Unavailable [place] II, Stanley Bateman Attending Unavailabl e [place] II, Stanley Bateman Admitting Unavailabl e Naderer, Dayron Primary Care Unavailable Kevan Berrios Attending Unavailable Kevan Berrios Admitting Unavailable HELEN, DAYRON Attending Unavailable PANDA, STACI Attending Unavailable BLACKBURN, IZABELA Referring Unavailable OMER, STACI Attending Unavailable BLACKBURN, IZABELA Referring Unavailable OMER, STACI Attending Unavailable BLACKBURN, IZABELA Referring Unavailable OMER, STACI Attending Unavailable BLACKBURN, IZABELA Referring Unavailable OMER, STACI Attending Unavailable BLACKBURN, IZABELA Referring Unavailable RUSJOSE CODY Attending Unavailable ANA OSULLIVAN Attending Unavailable HELEN, DAYRON Attending Unavailable ANA OSULLIVAN Attending Unavailable HELEN, DAYRON Attending Unavailable DAYRON CERVANTES Referring Unavailable Be BERMAN Attending Unavailable Be BERMAN Attending Unavailable Be BERMAN Admitting Unavailable DAYRON CERVANTES Primary Care Physician Medications Current Medications Medication Drug Class(es) Dates Sig (Normalized) Sig (Original) Cholecalciferol (20 sources) Vitamin D Start: 07-15-2023 Cholecalciferol (Vitamin D3) 62.5 mcg (2,500 unit) capsule Active MCG PO July 14, 2023 11:00pm Start: 07-15-2023 Cholecalcifero l (Vitamin D3) Active MCG PO July 15, 2023 12:00am take 1 capsule by mo uth in the morning cholecalciferol (Vitamin D-3) 50 MCG (2000 UT) capsule Take 2,000 Units by mouth in the morning. Active Coenzyme Q10 (2 sources) Start: 04-11-2024 Coenzyme Q10 3 0 mg, Oral, TID, Refills(s) 0 Start Date: 04/11/24 Status: Ordered dicyclomine hydrochloride 20 mg oral tablet (19 sources) Anticholinergic End: 02-24-2024 take 1 tablet by mouth four times daily as needed dicyclomine (Bentyl) 20 MG tablet Take 20 mg by mouth 4 (four) times a day as needed 02/24/2024 Discontinued Fish Oils (10 sources) Start: 04-11-2024 take 500 mg by mouth once daily Fish Oil 500 mg, Oral, Daily, Refill(s) 0 Start Date: 04/11/24 Status: Ordered take 1 capsule by mouth once jermaine ly omega-3 (FISH OIL) 300 MG capsule Take 300 mg by mouth Daily Active glucosamine 500 mg oral tablet (5 sources) Start: 04-11-2024 take 500 mg by mouth twice daily glucosamine 500 mg, Oral, BID, Refills(s) 0 Start Date: 04/11/24 Status: Ordered Start: 07-15-2023 take 1 capsule by mo [facility] twice daily at mealtime Glucosamine Sulfate 1,000 mg capsule Active 1000 MG PO Twice daily July 14, 2023 11:00pm administer with meals Aqzmopthzaw-Hovmpjeem-Xck C-Mn (Glucosamine 1500 Complex) capsule (20 sources) Glucosamine-Sam droit-Vit C-Mn (Glucosamine 1500 Complex) capsule Take 1 capsule by mouth in the morning. Active lisinopril 10 mg oral tablet (20 sources) Angiotensin Converting Enzyme Inhibitor Star t: 03-17 take 1 tablet by mouth once daily lisinopril 10 mg Tab 10 mg = 1 tab(s), Oral, Daily, Refills(s) 0 Start Date: 04/11/24 Status: Ordered Start: 10-05-2023 End: 10-04-2024 take 1 tablet by mouth once daily lisinopril 20 MG tablet Indications: Benign hypertension (CMS/HCC) Take 1 tablet (20 mg) by mouth Daily 90 tablet 3 10/05/2023 10/04/2024 Active Start: 07-15-2023 take 1 tablet by jim once daily Lisinopril 10 mg tablet Active 10 MG PO Daily July 14, 2023 11:00pm Medical marijuana (3 sources) Start: 07-15-2023 Medical mariju adrianne Active PO July 14, 2023 11:00pm Start: 07-15-2023 Medical vijay adrianne Active PO July 15, 2023 12:00am metoprolol tartrate 50 mg oral tablet (20 sources) beta-Adrenergic Chelis Start: 07-15-2023 End: 10-04-2024 take 1 tablet by mouth twice daily Metoprolol tartrate 50 mg Tab 50 mg = 1 tab(s), Oral, BID, Refills(s) 0 Start Date: 04/11/24 Status: Ordered Start: 07-15-2023 Metoprolol Tar trate Active MG PO July 15, 2023 12:00am multivitamin (Theragran) tablet (20 sources) take 1 tablet by mouth in the morning multivitamin (Theragran) tablet Take 1 tablet by mouth in the morning. Active Multivitamin preparation (2 sources) Start: 4 take 1 tablet by mouth once daily Multivitamin Active 1 TAB PO Daily July 15, 2023 12:00am Multivitamin tablet (1 source) Start: 4 take 1 tablet by mouth once daily Multivitamin tablet Active 1 TAB PO Daily July 14, 2023 11:00pm Nirmatrelvir&Ritonavi r 300/100 (Paxlovid, 300/100,) 20 x 150 MG & 10 x 100MG tablet therapy pack (4 sources) Start: 4 Nirmatrelvir&Ritonavir 300/100 (Paxlovid, 300/100,) 20 x 150 MG & 10 x 100MG tablet therapy pack Indications: COVID-19 Take 1 each by mouth See administration instructions 1 each 03/10/2024 Active [place] 5-Cmy-Zso-Fish Oil (Fish Oil) 60-90-500 mg capsule (1 source) Start: 4 take 1 capsule by mouth once daily [place] 4-Tsb-Hiu-Fish Oil (Fish Oil) 60-90-500 mg capsule Active 1 CAP PO Daily September 23, 2023 11:00pm simvastatin 20 mg oral tablet (20 sources) HMG-CoA Reductase Inhibitor Start: 4 End: 5 take 20 mg by mouth once daily in the evening simvastatin 20 mg, Oral, qPM, Refills(s) 0 Start Date: 04/11/24 Status: Ordered terazosin 10 mg oral tablet (20 sources) alpha-Adrenergic Chelsi Start: take 10 mg by mouth once daily terazosin 10 mg, Oral, Daily, Refills(s) 0 Start Date: 04/11/24 Status: Ordered Start: 07-15-2023 End: 10-04-2024 take 1 capsule by mouth at bedtime terazosin (Hytrin) 10 MG capsule Indications: BPH associated with nocturia Take 1 capsule (10 mg) by mouth at bedtime 90 capsule 3 10/05/2023 10/04/2024 Active ubidecarenone 100 mg oral capsule (3 sources) Start: 07-15-2023 Coenzyme Q10 (Co Q-10) 100 mg capsule Active 100 MG PO Daily July 14, 2023 11:00pm ubidecarenone 100 mg / vitamin e 5 unt oral capsule (20 sources) take 1 capsule by mouth once daily coenzyme Q-10 100 MG capsule Take 1 capsule by mouth 1 (one) time each day at the same time Active Vitamin D3 (2 sources) Start: 04-11-2024 take 10 ug by mouth once daily Vitamin D3 10 mcg, Oral, Daily, Refills(s) 0 Start Date: 04/11/24 Status: Ordered warfarin sodium 5 mg oral tablet (20 sources) Vitamin K Antagonist Start: 04-11-2024 take 1 tablet by mouth once daily warfarin 5 mg Tab 5 mg = 1 tab(s), Oral, Daily, Refills(s) 0 Start Date: 04/11/24 Status: Ordered Start: 07-15-2023 warfarin (Coum brice) 5 MG tablet Indications: BPH associated with nocturia Take 1 tablet daily 90 tablet 3 10/05/2023 Active Problems Active Problems Problem Classification Problem Date Documented Da te Episodic/Chronic Acquired foot deformities (2 sources) Hammer toe; Translations: [Other hammer toe(s) (acquired), right foot] 12-16-2023 Chronic Calculus of urinary tract (3 sources) Kidney stone; Translations: [Calculus of kidney] Onset: 04-11-2024 Episodic Cardiac dysrhythmias (20 sources) Multiple premature ventricular complexes; Translations: [Ventricular premature depolarization] Onset: 03-04-2023 03-04-2023 Chronic Chronic kidney disease (20 sources) Chronic kidney disease stage 3; Translations: [Chronic kidney disease, stage III (moderate) (HCC)] Onset: 03-04-2023 03-04-2023 Chronic Disorders of lipid metabolism (20 sources) Dyslipidemia; Translations: [Hyperlipidemia, unspecified] Onset: 03-04-2023 03-04-2023 Chronic Essential hypertension (20 sources) Benign hypertension; Translations: [Essential (primary) hypertension] Onset: 03-04-2023 03-04-2023 Chronic Genitourinary symptoms and ill-defined conditions (13 sources) Farnk hematuria; Translations: [Gross hematuria] Onset: 03-31-2024 03-31-2024 [...] 03-04-2023 07-15-2023 Chronic Other aftercare (5 sources) 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; Translations: [PENITENTIARY CURRNT USE ANTICOAGULANTS] Onset: 07-17-2022 Episodic Other lower respiratory disease (4 sources) Pulmonary fibrosis, unspecified; Translations: [PULMONARY FIBROSIS UNSPECIFIED] Onset: 11-27-2021 Chronic Other lower respiratory disease (20 sources) Fibrosis of lung; Translations: [Pulmonary fibrosis, unspecified] Onset: 03-04-2023 03-04-2023 Chronic Other male genital disorders (3 sources) Male erectile dysfunction, unspecified; Translations: [Erectile dysfunction] Onset: 04-11-2024 Chronic Other non-traumatic joint disorders (3 sources) [...] Classification Problem Date Documented Da te Episodic/Chronic Diabetes mellitus without complication (20 sources) Prediabetes; Translations: [Prediabetes] Onset: 03-04-2023 03-04-2023 Episodic Other aftercare (1 source) Encounter for follow-up examination after completed treatment for conditions other than malignant neoplasm; Translations: [Encounter for follow-up examination after completed treatment for conditions other than malignant neoplasm] Onset: 04-16-2017 Episodic Other aftercare (20 sources) 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; Translations: [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] Onset: 03-04-2023 03-04-2023 Episodic Other aftercare (18 sources) Long-term current use of drug therapy; Translations: [Other residential (current) drug therapy] Onset: 09-04-2023 09-04-2023 Episodic [...] Test Name Value Interpretation Reference Range Facility Ambulatory Visit Summaryon 0 04-11-2024 Ambulatory Visit Summary Ambulatory Visit Summary BILL ALLEN :1950 Visit Date:04/11/2024 Ambulatory Visit Instructions Your Diagnosis Gross hematuria Nocturia Kidney stones ED (erectile dysfunction) Tests Performed CT Urogram -- Results Pending -- Please visit your patient portal for your results or contact your primary care physician. Your Care Team Attending Physician - Be BERMAN MD Primary Care Physician - DAYRON CERVANTES MD Referring Physician - DAYRON CERVANTES MD Discharge Vitals Temperature (Oral) 36.2 ???C Heart Rate (Peripheral) 84 Blood Pressure 134/86 Height 175 cm Height 69 in Weight 100 kg Weight 220.462 lb BMI 32.65 What to do next You Need to Schedule the Following Appointments Follow Up with Be BERMAN MD, URL When: Where: [facility] [address] [place] [address]- [phone] Allergies No Known Allergies Problems Ongoing - Any problem that you are currently receiving treatment for. ED (erectile dysfunction) Gross hematuria Kidney stones Nocturia Patient Survey You may receive a survey via text or e-mail asking about your office visit. Please share your experience with us by completing your survey. We appreciate your feedback and thank you for choosing us for your care. Education Materials Cystoscopy Cystoscopy is a procedure that is used to help diagnose and sometimes treat conditions that affect the lower urinary tract. The lower urinary tract includes the bladder and the urethra. The urethra is the tube that drains urine from the bladder. Cystoscopy is done using a thin, tube-shaped instrument with a light and camera at the end (cystoscope). The cystoscope may be hard or flexible, depending on the goal of the procedure. The cystoscope is inserted through the urethra, into the bladder. Cystoscopy may be recommended if you have: ??? Urinary tract infections that keep coming back. ??? Blood in the urine (hematuria). ??? An inability to control when you urinate (urinary incontinence) or an overactive bladder. ??? Unusual cells found in a urine sample. ??? A blockage in the urethra, such as a urinary stone. ??? Painful urination. ??? An abnormality in the bladder found during an intravenous pyelogram (IVP) or CT scan. Cystoscopy may also be done to remove a sample of tissue to be examined under a microscope (biopsy). Tell a health care provider about: ??? Any allergies you have. ??? All medicines you are taking, including vitamins, herbs, eye drops, creams, and madg-arl-ufwgqbr medicines. ??? Any problems you or family members have had with anesthetic medicines. ??? Any blood disorders you have. ??? Any surgeries you have had. ??? Any medical conditions you have. ??? Whether you are or may be . What are the risks? Generally, this is a safe procedure. However, problems may occur, including: ??? Infection. ??? Bleeding. ??? Allergic reactions to medicines. ??? Damage to other structures or organs. What happens before the procedure? Medicines Ask your health care provider about: ??? Changing or stopping your regular medicines. This is especially important if you are taking diabetes medicines or blood thinners. ??? Taking medicines such as aspirin and ibuprofen. These medicines can thin your blood. Do not take these medicines unless your health care provider tells you to take them. ??? Taking unba-poa-vckyyvu medicines, vitamins, herbs, and supplements. Tests You may have an exam or testing, such as: ??? X-rays of the bladder, urethra, or kidneys. ??? CT scan of the abdomen or pelvis. ??? Urine tests to check for signs of infection. General instructions ??? Follow instructions from your health care provider about eating or drinking restrictions. ??? Ask your health care provider what steps will be taken to help prevent infection. These steps may include: ? Washing skin with a germ-killing soap. ? Taking antibiotic medicine. ??? Plan to have a responsible adult take you home from the hospital or clinic. What happens during the procedure? You will be given one or more of the following: ? A medicine to help you relax (sedative). ? A medicine to numb the area (local anesthetic). ??? The area around the opening of your urethra will be cleaned. ??? The cystoscope will be passed through your urethra into your bladder. ??? Germ-free (sterile) fluid will flow through the cystoscope to fill your bladder. The fluid will stretch your bladder so that your health care provider can clearly examine your bladder camara. ??? Your doctor will look at the urethra and bladder. Your doctor may take a biopsy or remove stones. ??? The cystoscope will be removed, and your bladder will be emptied. The procedure may vary among health care providers and hospita (more content not included)... Normal [facility] Urology Office/Clinic Noteon 04-11-2024 Urology Office/Clinic Note Urology Office/Clinic Note Chief Complaint referal for gross hematuria [facility] Staff 73yr old male pt referred by Dayron Cervantes MD for gross hematuria. Pt seen in ER 03/19/24 for blood in urine. He was treated with Cipro for presumed UTI. Says blood resolved 24hrs later. He again saw blood 03/30/24 & referral was placed to urology for possible cysto. Had a fall the day before he went to the ER ILDA 7 IPSS- 1 Dysuria: denies Incomplete bladder emptying: denies Hematuria: March 31- last time he seen blood one time only Frequency: every 3-4 hours Urgency: denies Nocturia: every hour from 4 a.m. on Stream: yes hesitation Leaking: denies Post void dripping: denies Wearing pads/ Depends: denies Urge incontinence: denies Stress incontinence: denies Incontinence without Sensory Awareness: denies Abdominal pain: denies Flank pain: _denies Sexual complaints: denies History of Present Illness Tests reviewed: reviewed UA, referral records, ER notes I have reviewed the previous health record information and history for this patient from external providers. I have reviewed and verified the staff HPI to be accurate for this encounter. Review of Systems PHQ Score Initial Depression Screen Score: 0 SCORE ROS - Provider Constitutional: denies weight loss, denies hot flashes. Eyes: denies eye problems. Gastrointestinal: denies nausea, denies vomiting. Cardiovascular: denies chest pain or angina. Integumentary: no dryness Musculoskeletal: denies musculoskeletal symptoms. ENMT: denies otolaryngeal symptoms. Respiratory: no shortness of breath. Heme/Lymph: denies easy bleeding tendency, denies easy bruising tendency. Psychiatric: no confusion, no anxiety. Genitourinary: See HPI. Physical Exam Vitals & Measurements T: 36.2 ???C(Oral) HR: 84(Peripheral) BP: 134/86 HT: 69 in HT: 175 cm WT: 100 kg WT: 220.462 lb BMI: 32.65 General Appearance: alert, no distress, well nourished, well developed male. Assessment/Plan Bill is a 73 yo male new pt referred by Dr. Dayron Cervantes for gross hematuria. 1. Gross hematuria (R31.0: Gross hematuria) Shares he fell on ice and landed on his back 03/19/24. Then saw blood in his urine. PCP rx'd Cipro despite pt not having any pain/burning with urination. Hematuria resolved after taking Cipro. States he had gross hematuria again 03/31/24. Went to ER and was given abx given suspected UTI. Urine culture was negative. Shares he did have pain with ejaculation ~1 month ago. Discussed this can be a sx of prostatitis. UA today shows moderate blood wo infection. Does not currently see blood in his urine. Discussed possible etiologies of hematuria. Advised pt hematuria workup includes upper urinary tract imaging, evaluation of the urinary cells with urine cytology and possible a FISH test, and a cystoscopy to rule out lower urinary tract pathology. Pt aware that a distinct etiology of the hematuria may not be clear upon conclusion of the workup. The rationale for this workup has been discussed, and all questions have been answered. Informed consent will be obtained. Prophylactic antibiotics will be given. -Urine sample to be sent for FISH/cytology -Schedule CTU -Will schedule cystoscopy. The risks and benefits for cystoscopy have been discussed. The risks include bleeding, infection, and irritation of the bladder and urinary channel, among others. The patient, after being informed of procedural details and after questions have been answered, wishes to proceed. Full informed consent has been obtained. Will order Local anesthesia. 2. Nocturia (R35.1: Nocturia) IPSS 7. Gets up q2hrs per night. Reports hesitancy at times. Discussed nocturia can be related to pain, sleep apnea, or BPH. Offered to start medication. Pt would like to think about options at this time. 3. Kidney stones (N20.0: Calculus of kidney) Reports hx of kidney stones. Had lithotripsy in the distant past. Has not had any recent imaging done. 4. ED (erectile dysfunction) (N52.9: Male erectile dysfunction, unspecified) ILDA 1. Reports difficulty achieving an erection over the last few years. Able to ejaculate. Not a priority at this time. Follow-up With When Contact Information BEKA CROCKETT, Be Carpenter, [facility] [address], [place] [phone] Additional Instructions: sched cysto and CTU Patient Education Cystoscopy Hematuria, Adult I, Brittni Murray, personally scribed for Dr. Berman on 04/11/2024 14:14:58. . Documentation recorded by the gabbyibBrittni lugo, accurately reflects the services(s) I performed and decisions made by me. Authenticated by Dr. Berman on 04/11/2024 14:18:05. Problem List/Past Medical History Ongoing ED (erectile dysfunction) Gross hematuria Kidney stones Nocturia Historical No qualifying data Medications No active medications Allergies No Known Allergies Social History Alcoho (more content not included)... Normal [facility] Comment on above: Result Comment: Elec tronically Signed By: BEKA CROCKETT, Be Carpenter\.br\Date and Time Signed: 04/11/24 14:18 EST\.br\Electronically Co-Signed By: Brittni Murray\.br\Date and Time Co-Signed: 04/11/24 14:15 EST URINE CULTURE, ROUTINEon Bacteria identified Cx Nom (U) Urine Culture, Routine [facility] Bacteria identified Cx Nom (U) Culture shows less than 10,000 colony forming units of bacteria per [facility] Bacteria identified Cx Nom (U) milliliter of urine. This colony count is not generally considered [facility] Bacteria identified Cx Nom (U) to be clinically significant. NO ID Healthcare Bacteria identified Cx Nom (U) Performed at: [facility] B[facility] identified Cx Nom (U) [address] [place] [address] [phone] [facility] Bacteria identified Cx Nom (U) Information Systems Coordinator: Miguel Ángel Perea PhD, Phone: [phone] [facility] HbA1c (Bld) [Mass fraction]o n 03-31-2024 Interpretation and review of laboratory results Abnormal [facility] - Hematology and Cell countson 03-31-2024 HbA1c (Bld) [Mass fraction] 6 % [facility] Urinalysis macro (dipstick) panel (U)on 03-31-2024 Bilirubin, UA Few Negative - 4(70) +++ mg/dL [facility] Blood, UA Positive Negative - 50 [place]/mcL [facility] Clarity, UA Cloudy [facility] Color, UA Red [facility] Glucose, UA Positive Negative - 2000(110) ++++ mg/dL [facility] Interpretation and review of laboratory results Abnormal [facility] Ketones, UA Negative Negative - 160(16) ++++ mg/dL [facility] Leukocytes, UA Negative Negative - 500+++ Robbie/mcL [facility] Nitrite, UA Negative Negative - Positive [facility] pH, UA 5.5 5 - 9 [facility] Protein, UA Moderate Negative - 2000(20) ++++ mg/dL [facility] Spec Grav, UA 1.02 1 - 1.03 [facility] Urobilinogen, UA 0.2 0.2 - 12 mg/dL [facility] Urine Cultureon 03-19-2024 Bacteria identified Cx Nom (U) <9,000 colonies/ml mixed bacterial skin contaminants 2 Days PERFORMED BY: [place] [address] PATHOLOGIST HOME HEALTH OCCUPATIONAL THERAPIST MELISSA AMBROCIO M.D. Normal [facility] Comment on above: Performed By: #### C UU #### [address] No Panel Informationon 02-23 Type of [...] taken Amount of lidocaine used: 0.6 cc [facility] No Panel InformationOrdered By: Jody Romero on 02-24-2024 [facility] PROTHROMBIN TIME INR W/O COUMon 02-23-2024 Interpretation and review of laboratory results Abnormal [facility] PT Coag (PPP) [Time] 28.3 s High [facility] INR 2.97 [facility] Comment on above: DESIRED INR: 2.0-3.0 CONDITIONS NOT LISTED BELOW 2.5-3.5 FOR PROSTHETIC HEART VALVE REPLACEMENT 2.5-3.5 RECURRENT THROMBOSIS [facility] PROTHROMBIN TIME INR W/O COUMon 01-27-2024 Interpretation and review of laboratory results Abnormal [facility] PT Coag (PPP) [Time] 22.4 s High [facility] INR 2.29 [facility] Comment on above: DESIRED INR: 2.0-3.0 CONDITIONS NOT LISTED BELOW 2.5-3.5 FOR PROSTHETIC HEART VALVE REPLACEMENT 2.5-3.5 RECURRENT THROMBOSIS [facility] PROTHROMBIN TIME INR W/O COUMon 12-16-2023 Interpretation and review of laboratory results Abnormal The [facility] ([facility]P) [Time] 29.3 s High [facility] INR 3.09 [facility] Comment on above: DESIRED INR: 2.0-3.0 CONDITIONS NOT LISTED BELOW 2.5-3.5 FOR PROSTHETIC HEART VALVE REPLACEMENT 2.5-3.5 RECURRENT THROMBOSIS [facility] PROTHROMBIN TIME INR W/O COUMon 11-05-2023 Interpretation and review of laboratory results Abnormal [facility] PT Coag (PPP) [Time] 26.3 s High [facility] INR 2.74 [facility] Comment on above: DESIRED INR: 2.0-3.0 CONDITIONS NOT LISTED BELOW 2.5-3.5 FOR PROSTHETIC HEART VALVE REPLACEMENT 2.5-3.5 RECURRENT THROMBOSIS [facility] XR lumbar spine 6V w bending on 09-18-2023 XR lumbar spine 6V w bending [facility] [address] [place] [address] XRay Report Signed Patient: Bill Allen MR#: [id number] [birth year] : 1950 Acct:[id number] Age/Sex: 73 / M ADM Date: 09/18/23 Loc: Room: Type: [facility] Attending Dr: Izabela Blackburn MD Copies to: [...] LOSS. Impression dictated by: Guille Encinas Jr., DChaitanyaOChaitanya09/18/2023 3:18 PM Dictation Location: [place] [address] Transcribed By: [facility] 09/18/23 1518 Dictated By: Guille Encinas Jr, DO 09/18/23 1517 Signed By: 09/18/23 1518 Normal [facility] MR lumbar spine wo conon MR lumbar spine wo con [facility] [address] [place] [address] MRI Report Signed Patient: Bill Allen MR#: [id number] [birth year] : 1950 Acct:[id number] Age/Sex: 72 / M ADM Date: 07/23/23 Loc: MR Room: Type: [facility] Attending Dr: Stanley Gregory II, [...] Leland Murillo M.D.07/23/2023 3:18 PM Dictation Location: [place] [address] Transcribed By: [facility] 07/23/23 151 Dictated By: Leland Murillo II, MD 07/23/23 151 Signed By: 07/23/23 1518 Normal [facility] XR hip BI w [id number] 07-15-19 XR hip BI w [id number] [facility] [address] [place] [address] XRay Report Signed Patient: Bill Allen MR#: [id number] [birth year] : 1950 Acct:[id number] Age/Sex: 72 / M ADM Date: 07/15/23 Loc: [facility] Room: Type: [facility] CLI Attending Dr: Stanley Gregory II, [...] Irving Saldivar M.D.07/15/2023 10:09 AM Dictation Location: [place] [address] Transcribed By: [facility] 07/15/23 1009 Dictated By: Irving Saldivar DO 07/15/23 1008 Signed By: 07/15/23 1009 Normal [facility] XR lumbar spine AP/LAT/FLX/E XTon 07-15-2023 XR lumbar spine AP/LAT/FLX/EXT [facility] [address] [place] [address] XRay Report Signed Patient: Bill Allen MR#: [id number] [birth year] : 1950 Acct:[id number] Age/Sex: 72 / M ADM Date: 07/15/23 Loc: [facility] Room: Type: [facility] CLI Attending Dr: Stanley Gregory II, [...] Vicky Hill M.D.07/15/2023 1:59 PM Dictation Location: [place] [address] Transcribed By: [facility] 07/15/23 1354 Dictated By: Vicky Hill MD 07/15/23 1357 Signed By: 07/15/23 1359 Normal [facility] PROTIMEon 07-17-2022 INR Coag (PPP) [Relative time] 2.75 {INR} Normal [facility] Comment on above: Performed By: #### P T #### [facility] [address] [place] [address] Dr. Roya Martin INR GUIDELINES SEE BELOW Normal [facility] Comment on above: Result Comment: ZANDER RED INR: 2.0 - 3.0 CONDITIONS NOT LISTED BELOW 2.5 - 3.5 FOR PROSTHETIC HEART VALVE REPLACEMENT 2.5 - 3.5 RECURRENT THROMBOSIS Performed By: #### P T #### [facility] [address] [place] [address] Dr. Roya Martin PT Coag (PPP) [Time] 27.5 s Critically high 9.0-11.6 [facility] Comment on above: Performed By: #### P T #### [facility] [address] [place] [address] Dr. Roya Martin PROTIMEon 06-04-2022 INR Coag (PPP) [Relative time] 2.97 {INR} Normal [facility] Comment on above: Performed By: #### P T #### [facility] [address] [place] [address] Dr. Roya Martin INR GUIDELINES SEE BELOW Normal The [facility] Comment on above: Result Comment: ZANDER RED INR: 2.0 - 3.0 CONDITIONS NOT LISTED BELOW 2.5 - 3.5 FOR PROSTHETIC HEART VALVE REPLACEMENT 2.5 - 3.5 RECURRENT THROMBOSIS Performed By: #### P T #### [facility] [address] [place] [address] Dr. Roya Martin PT Coag (PPP) [Time] 29.6 s Critically high 9.0-11.6 [facility] Comment on above: Performed By: #### P T #### [facility] [address] [place] [address] Dr. Roya Martin PROTIMEon 04-03-2022 INR Coag (PPP) [Relative time] 3.40 {INR} Normal [facility] Comment on above: Performed By: #### P T #### [facility] [address] [place] [address] Dr. Roya Martin INR GUIDELINES SEE BELOW Normal [facility] Comment on above: Result Comment: ZANDER RED INR: 2.0 - 3.0 CONDITIONS NOT LISTED BELOW 2.5 - 3.5 FOR PROSTHETIC HEART VALVE REPLACEMENT 2.5 - 3.5 RECURRENT THROMBOSIS Performed By: #### P T #### [facility] [address] [place] [address] Dr. Roya Martin PT Coag (PPP) [Time] 33.6 s Critically high 9.0-11.6 The [facility] Comment on above: Performed By: #### P T #### [facility] [address] [place] [address] Dr. Roya Martin PROTIMEon 01-06-2022 INR Coag (PPP) [Relative time] 2.45 {INR} Normal The [facility] Comment on above: Performed By: #### P T #### [facility] [address] [place] [address] Dr. Roya Martin INR GUIDELINES SEE BELOW Normal The [facility] Comment on above: Result Comment: ZANDER RED INR: 2.0 - 3.0 CONDITIONS NOT LISTED BELOW 2.5 - 3.5 FOR PROSTHETIC HEART VALVE REPLACEMENT 2.5 - 3.5 RECURRENT THROMBOSIS Performed By: #### P T #### [facility] [address] [place] [address] Dr. Roya Martin PT Coag (PPP) [Time] 25.0 s Critically high 9.0-11.6 [facility] Comment on above: Performed By: #### P T #### [facility] [address] [place] [address] CHEST HI RESOLUTIONon [...] KELY TAYLOR Date: 2021-11-27 08:56 Normal The [facility] HEMOGLOBINon 11-27-2021 Hemoglobin (Bld) [Mass/Vol] 15.4 g/dL Normal 14.0-18.0 The [facility] Comment on above: Performed By: #### H GB #### [facility] [address] [place] [address] Dr. Roya Martin PROTIMEon 11-14-2021 INR Coag (PPP) [Relative time] 2.28 {INR} Normal The [facility] Comment on above: Performed By: #### P T #### [facility] [address] [place] [address] Dr. Roya Martin INR GUIDELINES SEE BELOW Normal The [facility] Comment on above: Result Comment: ZANDER RED INR: 2.0 - 3.0 CONDITIONS NOT LISTED BELOW 2.5 - 3.5 FOR PROSTHETIC HEART VALVE REPLACEMENT 2.5 - 3.5 RECURRENT THROMBOSIS Performed By: #### P T #### [facility] [address] [place] [address] Dr. Roya Martin PT Coag (PPP) [Time] 23.3 s Critically high 9.0-11.6 [facility] Comment on above: Performed By: #### P T #### [facility] [address] [place] [address] Dr. Roya Martin PROTIMEon 09-09-2021 INR Coag (PPP) [Relative time] 2.70 {INR} Normal [facility] Comment on above: Performed By: #### P T #### [facility] [address] [place] [address] Dr. Roya Martin INR GUIDELINES SEE BELOW Normal The [facility] Comment on above: Result Comment: ZANDER RED INR: 2.0 - 3.0 CONDITIONS NOT LISTED BELOW 2.5 - 3.5 FOR PROSTHETIC HEART VALVE REPLACEMENT 2.5 - 3.5 RECURRENT THROMBOSIS Performed By: #### P T #### [facility] [address] [place] [address] Dr. Roya Martin PT Coag (PPP) [Time] 27.3 s Critically high 9.0-11.6 [facility] Comment on above: Performed By: #### P T #### [facility] [address] [place] [address] Dr. Roya Aguilera 04-16-2017 CNOV Office Visit (CARDFT) -BILL ALLEN ([id number]) 1950 MDate Time Provider Department04/16/17 11:30 AM CHARBEL ZUÑIGA During your visit today, we recorded the following information about you: Pulse Respiration Blood pressure Weight 72/minute 18/minute 125/74 99.3 kg Height 1.778 Aurea Zuñiga MD 04/16/2017 11:49 AM [facility] Department of Cardiovascular MedicineOUTPATIENT VISIT DATE04/16/17OUTPATIENT VISIT TYPEEstabladventhealthPRIMARY CARE PHYSICIAN:Juliet Bolanos, CS5157 [facility] [address]Rztqk: [phone]: [phone] COMPLAINT:PalpitationsHISTORY OF PRESENT ILLNESS: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 ObeseNeuro: [...] 01/08/16 [place], stage 1 diastology, no aipuyqjmakvs02 day monitor 02/14/16inus, rare PACs, frequent PVCs [...] or concerns.Charbel Zuñiga M.D.Joel Hartmannment of Cardiovascular MedicineGrant Hospitalrt and Vascular InstituteUc Medical Center[address], [place] [address]Xctyyd: [phone] Referring Provider: JULIET BOLANOS [[id number]]Allergies As of Date: 04/16/2017(No Known Allergies)Date Reviewed: 04/16/2017Reviewed by: Kelly Mckinney (Genia) GENIA Huitron - Fully AssessedPrimary Visit Diagnosis:Essential hypertension [...] RN 04/16/2017 11:29 AM >> KELLY HUITRON Apr 16, 2017 11:29 AM LISINOPRIL 10 MG TABLET >> Jayden Kolb RN 04/16/2017 11:29 AM >> KELLY HUITRON Apr 16, 2017 11:29 AM Received from: External Pharmacy >> Jayden Kolb RN 04/16/2017 11:29 AM >> KELLY HUITRON Apr 16, 2017 11:29 AMProblem List As Of Date: 04/16/2017(None)Medications Discontinued During This Encounter losartan-hydrochlorothiazide (HYZAAR* 90 t* 3 04/16/2016 04/16/2017 Route: ORAL Sig: Take 1 tablet by mouth once daily. Disc: Erroneous entryDisposition: Return if symptoms worsen or fail to improve.Follow-up and Disposition History RecordedEncounter Number: [id number] Status:Closed by CHARBEL ZUÑIGA MD on 04/16/17 [facility] PROGRESSon 04-13-2017 PROGRESS HNO ID: [id number] thor: Charbel ZuñigaSer: (none)Author Type: PhysicianType: Progress NotesFiled: 04/16/2017 11:49 AMNote Text:Heart and Vascular [facility] Department of Cardiovascular MedicineOUTPATIENT VISIT DATE04/16/17OUTPATIENT VISIT TYPEEstablishedPRIMARY CARE PHYSICIAN:Juliet Bolanos, CP1862 [facility] [address]Ietsp: [phone]: [phone] COMPLAINT:PalpitationsHISTORY OF PRESENT ILLNESS: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 ObeseNeuro: [...] 01/08/16 [place] 55, stage 1 diastology, no quswzhbktcko16 day monitor 02/14/16inus, rare PACs, frequent PVCs [...] M.D.Joel Childs of Cardiovascular MedicineHeart and Vascular InstituteDebra Ville [id number], [place] [address]Djshpr: [phone] Normal [facility] Vital Signs Date Time Vital Sign Value Performing Clinician Facility 04-11-2024 13:15-0500 Body temperature 97.16 [degF] Be BERMAN [facility] 04-11-2024 13:15-0500 Diastolic blood pressure 86 mm[Hg] Be BERMAN [facility] 04-11-2024 13:15-0500 Heart rate 84 /min Be BERMAN [facility] 04-11-2024 13:15-0500 Systolic blood pressure 134 mm[Hg] Be BERMAN [facility] 03-31-2024 09:35-0500 Body height 175.3 cm Dayron Cervantes MD Work Phone: [facility] 03-31-2024 09:35-0500 Body mass index (BMI) [Ratio] 32.49 kg/m2 Dayron Cervantes MD Work Phone: [facility] 03-31-2024 09:35-0500 Body temperature 97.3 [degF] Dayron Cervantes MD Work Phone: [facility] 03-31-2024 09:35-0500 Body weight 99.79 kg Dayron Cervantes MD Work Phone: [facility] 03-31-2024 09:35-0500 Diastolic blood pressure 62 mm[Hg] Dayron Cervantes MD Work Phone: [facility] 03-31-2024 09:35-0500 Heart rate 93 /min Dayron Cervantes MD Work Phone: [facility] 03-31-2024 09:35-0500 Respiratory rate 20 /min Dayron Cervantes MD Work Phone: [facility] 03-31-2024 09:35-0500 SaO2% (BldA) [Mass fraction] 97 % Dayron Cervantes MD Work Phone: [facility] 03-31-2024 09:35-0500 Systolic blood pressure 146 mm[Hg] Dayron Cervantes MD Work Phone: [facility] 02-24-2024 09:01-0500 Body height 175.3 cm Dayron Cervantes MD Work Phone: [facility] 02-24-2024 09:01-0500 Body mass index (BMI) [Ratio] 33.67 kg/m2 Dayron Cervantes MD Work Phone: [facility] 02-24-2024 09:01-0500 Body temperature 97.11 [degF] Dayron Cervantes MD Work Phone: [facility] 02-24-2024 09:01-0500 Body weight 103.42 kg Dayron Cervantes MD Work Phone: [facility] 02-24-2024 09:01-0500 Diastolic blood pressure 62 mm[Hg] Dayron Cervantes MD Work Phone: [facility] 02-24-2024 09:01-0500 Heart rate 78 /min Dayron Cervantes MD Work Phone: [facility] 02-24-2024 09:01-0500 Respiratory rate 20 /min Dayron Cervantes MD Work Phone: [facility] 02-24-2024 09:01-0500 SaO2% (BldA) [Mass fraction] 95 % Dayron Cervantes MD Work Phone: [facility] 02-24-2024 09:01-0500 Systolic blood pressure 142 mm[Hg] Dayron Cervantes MD Work Phone: [facility] 12-16-2023 10:18-0400 Body height 175.3 cm Jose Yen DPM Work Phone: [facility] 12-16-2023 10:18-0400 Body mass index (BMI) [Ratio] 33.23 kg/m2 Jose Yen DPM Work Phone: [facility] 12-16-2023 10:18-0400 Body weight 102.06 kg Jose Yen DPM Work Phone: [facility] 07-15-2023 09:14-0400 Body height 175.26 cm MD Dayron Cervantes Work Phone: [facility] 07-15-2023 09:14-0400 Body mass index (BMI) [Ratio] 33.5 kg/m2 MD Dayron Cervantes Work Phone: [facility] 07-15-2023 09:14-0400 Body weight 103.02 kg MD Dayron Cervantes Work Phone: [facility] Encounters Encounter Date Encounter Type Care Provider Facility Start: 04-11-2024 End: 04-11-2024 ambulatory Be BERMAN Facility:[facility] Start: 04-11-2024 End: 04-11-2024 Lab Drop off Be R BEKA [facility] Start: 04-11-2024 End: 04-11-2024 ambulatory DAYRON CERVANTES Facility:[facility] Start: 04-11-2024 End: 04-11-2024 Patient encounter procedure Be Carpenter BEKA [facility] Start: 03-31-2024 End: 03-31-2024 Bamboo flowsheet Dayron Cervantes MD Work Phone: [facility] Start: 03-31-2024 End: 04-04-2024 Bamboo flowsheet Dayron Cervantes MD Work Phone: [facility] Start: 03-31-2024 End: 04-04-2024 Clinisync Result Encounter Dayron Cervantes MD Work Phone: [facility] Unsolicited Start: 03-31-2024 ambulatory DAYRON CERVANTES Facility:[facility] Start: 03-31-2024 End: 03-31-2024 Office outpatient visit 15 minutes Dayron Cervantes MD Work Phone: [facility] Comment on above: Gross hematuria (Jelly clare Dx); Prediabetes Start: 03-31-2024 End: 03-31-2024 ambulatory DAYRON CERVANTES Not Available Start: 03-19-2024 End: 03-19-2024 ambulatory Dayron Cervantes MD Work Phone: [facility] Work Phone: Start: 03-19-2024 End: 03-19-2024 Departed Referred Dayron Cervantes MD Work Phone: [facility] Start: 02-24-2024 End: 02-24-2024 Bamboo flowsheet Dayron Cervantes MD Work Phone: [facility] Start: 02-24-2024 End: 02-24-2024 Bamboo flowsheet Dayron Cervantes MD Work Phone: [facility] Start: 02-24-2024 End: 02-24-2024 Patient encounter procedure [facility] Work Phone: [facility] Comment on above: Neoplasm of unspecif ied behavior of bone, soft tissue, and skin (Primary Dx) Start: 02-24-2024 End: 02-24-2024 ambulatory [facility] Not Available Start: 02-24-2024 End: 02-24-2024 Office outpatient visit 25 minutes Dayron Cervantes MD Work Phone: [facility] Comment on above: Benign hypertension (CMS/HCC) (Primary Dx); Bilateral primary osteoarthritis of hip; Spinal stenosis of lumbar region with radiculopathy; PVC (premature ventricular contraction) Start: 02-24-2024 End: 02-24-2024 ambulatory DAYRON CERVANTES Not Available Start: 02-23-2024 End: 02-23-2024 Clinisync Result Encounter Dayron Cervantes MD Work Phone: [facility] External Department Unsolicited Start: 02-23-2024 End: 02-23-2024 Clinisync Result Encounter Dayron Cervantes MD Work Phone: [facility] External Department Unsolicited Start: 02-09-2024 End: 02-09-2024 Bamboo flowsheet [facility] Work Phone: [facility] Start: 02-09-2024 End: 02-09-2024 Bamboo flowsheet [facility] Work Phone: [facility] Start: 02-09-2024 End: 02-09-2024 [facility] Comment on above: Neoplasm of skin (Pr imary Dx); Seborrheic keratosis; Actinic keratosis Start: 02-09-2024 End: 02-09-2024 ambulatory ANA OSULLIVAN Not Available Start: 01-27-2024 End: 01-27-2024 Clinisync Result Encounter Dayron Cervantes MD Work Phone: [facility] External Department Unsolicited Start: 01-27-2024 End: 01-27-2024 Clinisync Result Encounter Dayron Cervantes MD Work Phone: [facility] External Department Unsolicited Start: 12-16-2023 End: 12-16-2023 Bamboo flowsheet Jose S Rusher DPM Work Phone: [facility] Start: 12-16-2023 End: 12-16-2023 Bamboo flowsheet Jose S Rusher DPM Work Phone: [facility] Start: 12-16-2023 End: 12-16-2023 Clinisync Result Encounter Dayron Cervantes MD Work Phone: [facility] External Department Unsolicited Start: 12-16-2023 End: 12-16-2023 Office outpatient new 30 minutes Jose S Rusher DPM Work Phone: [facility] Comment on above: Hammer toe of right foot (Primary Dx); History of DVT (deep vein thrombosis) Start: 12-16-2023 End: 12-16-2023 ambulatory JOSE S RUSHER Not Available Start: 11-25-2023 End: 11-25-2023 Bamboo flowsheet Staci Omer PT [facility] Start: 11-25-2023 End: 11-25-2023 Bamboo flowsheet Staci Omer PT [facility] Start: 11-25-2023 End: 11-25-2023 ambulatory Staci Omer PT [facility] Comment on above: Bilateral primary os teoarthritis of hip (Primary Dx); Spinal stenosis, unspecified spinal region Start: 11-11-2023 End: 11-11-2023 Bamboo flowsheet Staci Omer PT [facility] Start: 11-11-2023 End: 11-11-2023 Bamboo flowsheet Staci Omer PT [facility] Start: 11-11-2023 End: 11-11-2023 ambulatory Staci Omer PT [facility] Comment on above: Bilateral primary os teoarthritis of hip (Primary Dx); Spinal stenosis, unspecified spinal region Start: 11-05-2023 End: 11-05-2023 Bamboo flowsheet Staci Omer PT [facility] Start: 11-05-2023 End: 11-05-2023 Clinisync Result Encounter Dayron Cervantes MD Work Phone: [facility] External [facility] Unsolicited Start: 11-05-2023 End: 11-05-2023 Clinisync Result Encounter Dayron Cervantes MD Work Phone: [facility] Unsolicited Start: 11-05-2023 End: 11-05-2023 ambulatory Staci Omer PT [facility] Comment on above: Bilateral primary os teoarthritis of hip (Primary Dx); Spinal stenosis, unspecified spinal region Start: 10-20-2023 End: 10-20-2023 Evaluation and management of inpatient VALENTINEJennifer GOMEZ [facility] Start: 10-20-2023 End: 10-20-2023 Evaluation and management of inpatient JOANNAKASSANDRA FREITAS [facility] Start: 10-16-2023 End: 10-16-2023 ambulatory STACI OMER Not Available Start: 10-01-2023 End: 10-01-2023 ambulatory STACI PANDA Not Available Start: 09-29-2023 End: 09-29-2023 ambulatory KELY Bateman [facility] Start: 09-29-2023 Encounter for other preprocedural examination KELY KAYLA [facility] Start: 09-18-2023 End: 09-18-2023 Patient encounter procedure MD Dayron Cervantes Work Phone: [facility] Work Phone: Start: 09-18-2023 End: 09-18-2023 ambulatory MD Dayron Cervantes Work Phone: [facility] Work Phone: Start: 09-04-2023 End: 09-04-2023 ambulatory DAYRON CERVANTES Not Available Start: 07-23-2023 End: 07-23-2023 Patient encounter procedure MD Dayron Cervantes Work Phone: [facility] Work Phone: Start: 07-23-2023 End: 07-23-2023 ambulatory MD Dayron Cervantes Work Phone: [facility] Work Phone: Start: 07-15-2023 End: 07-15-2023 ambulatory Dayron Cervantes Facility:[facility] Start: 07-15-2023 End: 07-15-2023 Patient encounter procedure MD Dayron Cervantes Work Phone: [facility] Work Phone: Start: 07-17-2022 End: 07-18-[address] DAYRON CERVANTES Facility:[facility] Start: 06-04-2022 End: 06-05-[address] DAYRON CERVANTES Facility:[facility] Start: 04-03-2022 End: 04-04-[address] DAYRON CERVANTES Facility:[facility] Start: 01-06-2022 End: 01-13-[address] DAYRON CERVANTES Facility:[facility] Start: 11-27-2021 End: 11-28-2021 ambulatory OUSMANEGARY ORNELAS . Facility:[facility] Start: 11-14-2021 End: 12-14-[address] DAYRON CERVANTES Facility:[facility] Start: 09-09-2021 End: 09-13-[address] DAYRON CERVANTES Facility:[facility] Start: 04-16-2017 End: 04-22-2017 Ambulatory [facility] Procedures Date Procedure Procedure Detail Performing Clinician Start: 03-31-2024 Urnls dip stick/tabl et rgnt non-auto w/o micrscp Dayron Cervantes MD Work Phone: Start: 03-31-2024 Hemoglobin glycosyla sneha a1c Dayron Cervantes MD Work Phone: Start: 03-31-2024 Bacteria identified in Urine by Culture Dayron Cervantes MD Work Phone: Start: 02-24-2024 SKIN / NAIL BIOPSY Kayode Osullivan MARIA VICTORIA Work Phone: Start: 02-23-2024 SRMCOH PROTHROMBIN T [...] 09-15-2026 Screening for malignant neoplasm of colon [facility] Start: 05-26-2024 End: 05-26-2024 Patient encounter procedure 05/26/2024 10:30 AM EDT Office Visit [facility] [address] [place] [address] Dayron Cervantes MD [address] [place] [phone] [facility] Start: 05-18-2024 End: 05-18-2024 Patient encounter procedure 05/18/2024 9:30 AM EST Office Visit [facility] [address] [place] [address] Dayron Cervantes MD [address] [place] [phone] [facility] Start: 05-10-2024 End: 05-10-2024 Patient encounter procedure 05/10/2024 1:30 PM EST Office Visit [facility] [address] [place] [address] Rowdy Hansen MD [address] [place] [address] [facility] Start: 03-31-2024 End: 03-31-2024 Patient encounter procedure 03/31/2024 9:30 AM EST Office Visit [facility] [address] [place] [address] Dayron Cervantes MD [address] [place] [phone] Arrived [facility] Comment on above: Arrived Start: 03-19-2024 Bacteria identified in Urine by Culture Urine Culture [facility] Start: 03-19-[address] [facility] Start: 02-24-2024 End: 02-24-2024 Patient encounter procedure [facility] Comment on above: Arrived Start: 02-09-2024 End: 02-09-2024 Patient encounter procedure 02/09/2024 2:00 PM EST Office Visit [facility] [address] [place] [phone] Ana Osullivan PA [address] [place] [phone] [facility] Start: 12-16-2023 End: 12-16-2023 Patient encounter procedure [facility] Comment on above: Arrived Start: 11-25-2023 End: 11-25-2023 ambulatory [facility] Comment on above: Arrived Start: 11-19-2023 End: 11-19-2023 ambulatory 11/19/2023 10:30 AM EDT Treatment [facility] [address] [place] [address] Staci Omer, PT [facility] Start: 11-15-2023 Influenza vaccination Influenza Vaccine (#1) [facility] Start: 11-11-2023 End: 11-11-2023 ambulatory 11/11/2023 9:30 AM EDT Treatment [facility] [address] [facility] [address] [place] [address] Staci Omer, PT [facility] Start: 1950 Medicare Annual Wellness (AWV) Medicare Annual Wellness (AWV) [facility] Start: 1950 Screening for malignant neoplasm of colon [facility] Dermatopathology exam Dermatopat hology exam Pathology and Cytology Timed Neoplasm of unspecified behavior of bone, soft tissue, and skin Release Upon Ordering for 1 Occurrences starting 02/24/2024 [facility] Work Phone: Comment on above: Release Upon Ordering for 1 Occurrences starting 02/24/2024 Immunizations Immunization Date Immunization Notes Care Provider Fa cility 12-25-2022 influenza virus vacc ine, unspecified formulation Staci Omer PT [facility] 12-01-2022 pneumococcal conjuga te 20-valent (Prevnar 20) 0.5 ML vaccine Staci Omer PT [facility] Healthcare Payers Date Payer Category Payer Self-pay 2021 Private Health Insurance [employer] [id number] 2021 Unknown [employer] [id number] 2021-Present [address] [place] [address] [id number] 2015 Medicare [id number] 1959 Medicare [id number] 1959 Unknown [id number] 1950 Unknown [id number] 2.16.840.1.835103.3.579.2. 593 1950 Unknown [id number] 2.16.840.1.210162.3.579.2. 593 1950 Unknown [id number] 2.16.840.1.351712.3.579.2. 593 1950 Unknown [id number] 2.16.840.1.598482.3.579.2. 593 1950 Unknown [id number] 2.16.840.1.411619.3.579.2. 593 1950 Unknown [id number] 2.16.840.1.479884.3.579.2. 593 1950 Unknown [id number] 2.16.840.1.326204.3.579.2. 593 1950 Unknown [id number] 2.16.840.1.701199.3.579.2. 1286 1950 Unknown [id number] 2.16.840.1.622204.3.579.2. 1286 1950 Unknown [id number] 2.16.840.1.273339.3.579.2. 1286 1950 Unknown [id number] 2.16.840.1.736163.3.579.2. 128 1950 Unknown [id number] 2.16.840.1.592189.3.579.2. 1285 1950 Unknown [id number] 2.16.840.1.279003.3.579.2. 1258 1950 Unknown [id number] 2.16.840.1.973913.3.579.2. 1258 1950 Unknown [id number] 2.16.840.1.340888.3.579.2. 1258 1950 Unknown [id number] 2.16.840.1.569964.3.579.2. 1258 1950 Unknown [id number] 2.16.840.1.253688.3.579.2. 1258 1950 Unknown [id number] 2.16.840.1.623912.3.579.2. 1258 1950 Unknown [id number] 2.16.840.1.160690.3.579.2. 1258 1950 Unknown [id number] 2.16.840.1.217949.3.579.2. 1258 1950 Unknown [id number] 2.16.840.1.688816.3.579.2. 1258 1950 Unknown [id number] 2.16.840.1.549716.3.579.2. 1258 1950 Unknown [id number] 2.16.840.1.269011.3.579.2. 1258 1950 Unknown [id number] 2.16.840.1.337680.3.579.2. 727 1950 Unknown [id number] 2.16.840.1.315327.3.579.2. 727 Unknown [id number] 2.16.840.1.852910.3.579.2. 531 Unknown [id number] 2.16.840.1.603264.3.579.2. 531 Unknown [id number] 2.16.840.1.579872.3.579.2. 531 Unknown [id number] 2.16.840.1.141181.3.579.2. 531 Social History Date Type Detail Facility [facility] Work Phone: Start: 1950 Sex Assigned At Male F [facility] Start: 03-04-2023 End: 04-11-2024 Tobacco smoking status NHIS Never smoked tobacco [facility] Start: 03-04-2023 Tobacco use and exposure Smokeless tobacco non-user [facility] Start: 12-16-2023 End: 03-31-2024 Alcoholic beverage intake Lifetime non-drinker (finding) [facility] Start: 12-16-2023 End: 03-31-2024 History of Social function [facility] Start: 12-16-2023 End: 03-31-2024 Tobacco use panel [facility] Start: 1950 Sex assigned at Not on file [facility] Work Phone: Start: 03-20-2024 Sex Patient sex un known (finding) [facility] Functional Status Date Assessment Result Facility 04-11-2024 Functional Status N/A [facility] Clinical Notes 11-05-2023 to 04-11-2024 Dayron Cervantes MD - 03/31/2024 10:30 AM John Cervantes MD - 03/31/2024 10:30 AM John Cervantes MD - 03/31/2024 9:30 AM John Cervantes MD - 03/31/2024 9:30 AM EST Note Date & Type Note Facility 04-11-2024 Hospital Discharge instructions Patient Education 04/11/2024 14:05:15 Cystoscopy Cystoscopy Cystoscopy is a procedure that is used to help diagnose and sometimes treat conditions that affect the lower urinary tract. The lower urinary tract includes the bladder and the urethra. The urethra is the tube that drains urine from the bladder. Cystoscopy is done using a thin, tube-shaped instrument with a light and camera at the end (cystoscope). The cystoscope may be hard or flexible, depending on the goal of the procedure. The cystoscope is inserted through the urethra, into the bladder. Cystoscopy may be recommended if you have: Urinary tract infections that keep coming back. Blood in the urine (hematuria). An inability to control when you urinate (urinary incontinence) or an overactive bladder. Unusual cells found in a urine sample. A blockage in the urethra, such as a urinary stone. Painful urination. An abnormality in the bladder found during an intravenous pyelogram (IVP) or CT scan. Cystoscopy may also be done to remove a sample of tissue to be examined under a microscope (biopsy). Tell a health care provider about: Any allergies you have. All medicines you are taking, including vitamins, herbs, eye drops, creams, and ycez-xra-zsfztpf medicines. Any problems you or family members have had with anesthetic medicines. Any blood disorders you have. Any surgeries you have had. Any medical conditions you have. Whether you are or may be . What are the risks? Generally, this is a safe procedure. However, problems may occur, including: Infection. Bleeding. Allergic reactions to medicines. Damage to other structures or organs. What happens before the procedure? Medicines Ask your health care provider about: Changing or stopping your regular medicines. This is especially important if you are taking diabetes medicines or blood thinners. Taking medicines such as aspirin and ibuprofen. These medicines can thin your blood. Do not take these medicines unless your health care provider tells you to take them. Taking wnki-sdn-togybzj medicines, vitamins, herbs, and supplements. Tests You may have an exam or testing, such as: X-rays of the bladder, urethra, or kidneys. CT scan of the abdomen or pelvis. Urine tests to check for signs of infection. General instructions Follow instructions from your health care provider about eating or drinking restrictions. Ask your health care provider what steps will be taken to help prevent infection. These steps may include: ?Washing skin with a germ-killing soap. ?Taking antibiotic medicine. Plan to have a responsible adult take you home from the hospital or clinic. What happens during the procedure? You will be given one or more of the following: ?A medicine to help you relax (sedative). ?A medicine to numb the area (local anesthetic). The area around the opening of your urethra will be cleaned. The cystoscope will be passed through your urethra into your bladder. Germ-free (sterile) fluid will flow through the cystoscope to fill your bladder. The fluid will stretch your bladder so that your health care provider can clearly examine your bladder camara. Your doctor will look at the urethra and bladder. Your doctor may take a biopsy or remove stones. The cystoscope will be removed, and your bladder will be emptied. The procedure may vary among health care providers and hospitals. What can I expect after the procedure? After the procedure, it is common to have: Some soreness or pain in your abdomen and urethra. Urinary symptoms. These include: ?Mild pain or burning when you urinate. Pain should stop within a few minutes after you urinate. This may last for up to 1 week. ?A small amount of blood in your urine for several days. ?Feeling like you need to urinate but producing only a small amount of urine. Follow these instructions at home: Medicines Take uvko-wwx-deyzdsm and prescription medicines only as told by your health care provider. If you were prescribed an antibiotic medicine, take it as told by your health care provider. Do not stop taking the antibiotic even if you start to feel better. General instructions Return to your normal activities as told by your health care provider. Ask your health care provider what activities are safe for you. If you were given a sedative during the procedure, it can affect you for several hours. Do not drive or operate machinery until your health care provider says that it is safe. Watch for any blood in your urine. If the amount of blood in your urine increases, call your health care provider. Follow instructions from your health care provider about eating or drinking restrictions. If a tissue sample was removed for testing (biopsy) during your procedure, it is up to you to get your test results. Ask your health care provider, or the department that is doing the test, when your results will be ready. Drink enough fluid to keep your urine pale yellow. Keep all follow-up visits. This is important. Contact a health care provider if: You have pain that gets worse or does not get better with medicine, especially pain when you urinate. You have trouble urinating. You have more blood in your urine. Get help right away if: You have blood clots in your urine. You have abdominal pain. You have a fever or chills. You are unable to urinate. Summary Cystoscopy is a procedure that is used to help diagnose and sometimes treat conditions that affect the lower urinary tract. Cystoscopy is done using a thin, tube-shaped instrument with a light and camera at the end. After the procedure, it is common to have some soreness or pain in your abdomen and urethra. Watch for any blood in your urine. If the amount of blood in your urine increases, call your health care provider. If you were prescribed an antibiotic medicine, take it as told by your health care provider. Do not stop taking the antibiotic even if you start to feel better. This information is not intended to replace advice given to you by your health care provider. Make sure you discuss any questions you have with your health care provider. Document Revised: 11/13/2021 Document Reviewed: 10/12/2020 [employer] Patient Education 2023 [employer]. 04/11/2024 14:05:12 Hematuria, Adult Hematuria, Adult Hematuria is blood in the urine. Blood may be visible in the urine, or it may be identified with a test. This condition can be caused by infections of the bladder, urethra, kidney, or prostate. Other possible causes include: Kidney stones. Cancer of the urinary tract. Too much calcium in the urine. Conditions that are passed from parent to child (inherited conditions). Exercise that requires a lot of energy. Infections can usually be treated with medicine, and a kidney stone usually will pass through your urine. If neither of these is the cause of your hematuria, more tests may be needed to identify the cause of your symptoms. It is very important to tell your health care provider about any blood in your urine, even if it is painless or the blood stops without treatment. Blood in the urine, when it happens and then stops and then happens again, can be a symptom of a very serious condition, including cancer. There is no pain in the initial stages of many urinary cancers. Follow these instructions at home: Medicines Take xqtx-myk-enwehad and prescription medicines only as told by your health care provider. If you were prescribed an antibiotic medicine, take it as told by your health care provider. Do not stop taking the antibiotic even if you start to feel better. Eating and drinking Drink enough fluid to keep your urine pale yellow. It is recommended that you drink 3 4 quarts (2.8 3.8 L) a day. If you have been diagnosed with an infection, drinking cranberry juice in addition to large amounts of water is recommended. Avoid caffeine, tea, and carbonated beverages. These tend to irritate the bladder. Avoid alcohol because it may irritate the prostate (in males). General instructions If you have been diagnosed with a kidney stone, follow your health care provider's instructions about straining your urine to catch the stone. Empty your bladder often. Avoid holding urine for long periods of time. If you are female: ?After a bowel movement, wipe from front to back and use each piece of toilet paper only once. ?Empty your bladder before and after sex. Pay attention to any changes in your symptoms. Tell your health care provider about any changes or any new symptoms. It is up to you to get the results of any tests. Ask your health care provider, or the department that is doing the test, when your results will be ready. Keep all follow-up visits. This is important. Contact a health care provider if: You develop back pain. You have a fever or chills. You have nausea or vomiting. Your symptoms do not improve after 3 days. Your symptoms get worse. Get help right away if: You develop severe vomiting and are unable to take medicine without vomiting. You develop severe pain in your back or abdomen even though you are taking medicine. You pass a large amount of blood in your urine. You pass blood clots in your urine. You feel very weak or like you might faint. You faint. Summary Hematuria is blood in the urine. It has many possible causes. It is very important that you tell your health care provider about any blood in your urine, even if it is painless or the blood stops without treatment. Take rlhg-bhe-odsdhgz and prescription medicines only as told by your health care provider. Drink enough fluid to keep your urine pale yellow. This information is not intended to replace advice given to you by your health care provider. Make sure you discuss any questions you have with your health care provider. Document Revised: 10/31/2020 Document Reviewed: 10/31/2020 [employer] Patient Education 2023 [employer]. Follow Up Care 04/01/2024 13:45:18 With:BEKA CROCKETT, Be Carpenter, URL Address: [facility] [address] [place] [phone] When: Unknown [facility] 04-11-2024 Note Patient Education Urology Cystoscopy Cystoscopy is a procedure that is used to help diagnose and sometimes treat conditions that affect the lower urinary tract. The lower urinary tract includes the bladder and the urethra. The urethra is the tube that drains urine from the bladder. Cystoscopy is done using a thin, tube-shaped instrument with a light and camera at the end (cystoscope). The cystoscope may be hard or flexible, depending on the goal of the procedure. The cystoscope is inserted through the urethra, into the bladder. Cystoscopy may be recommended if you have: ??? Urinary tract infections that keep coming back. ??? Blood in the urine (hematuria). ??? An inability to control when you urinate (urinary incontinence) or an overactive bladder. ??? Unusual cells found in a urine sample. ??? A blockage in the urethra, such as a urinary stone. ??? Painful urination. ??? An abnormality in the bladder found during an intravenous pyelogram (IVP) or CT scan. Cystoscopy may also be done to remove a sample of tissue to be examined under a microscope (biopsy). Tell a health care provider about: ??? Any allergies you have. ??? All medicines you are taking, including vitamins, herbs, eye drops, creams, and nijf-dfc-rybjoel medicines. ??? Any problems you or family members have had with anesthetic medicines. ??? Any blood disorders you have. ??? Any surgeries you have had. ??? Any medical conditions you have. ??? Whether you are or may be . What are the risks? Generally, this is a safe procedure. However, problems may occur, including: ??? Infection. ??? Bleeding. ??? Allergic reactions to medicines. ??? Damage to other structures or organs. What happens before the procedure? Medicines Ask your health care provider about: ??? Changing or stopping your regular medicines. This is especially important if you are taking diabetes medicines or blood thinners. ??? Taking medicines such as aspirin and ibuprofen. These medicines can thin your blood. Do not take these medicines unless your health care provider tells you to take them. ??? Taking eewb-mre-ocodvov medicines, vitamins, herbs, and supplements. Tests You may have an exam or testing, such as: ??? X-rays of the bladder, urethra, or kidneys. ??? CT scan of the abdomen or pelvis. ??? Urine tests to check for signs of infection. General instructions ??? Follow instructions from your health care provider about eating or drinking restrictions. ??? Ask your health care provider what steps will be taken to help prevent infection. These steps may include: ? Washing skin with a germ-killing soap. ? Taking antibiotic medicine. ??? Plan to have a responsible adult take you home from the hospital or clinic. What happens during the procedure? You will be given one or more of the following: ? A medicine to help you relax (sedative). ? A medicine to numb the area (local anesthetic). ??? The area around the opening of your urethra will be cleaned. ??? The cystoscope will be passed through your urethra into your bladder. ??? Germ-free (sterile) fluid will flow through the cystoscope to fill your bladder. The fluid will stretch your bladder so that your health care provider can clearly examine your bladder camara. ??? Your doctor will look at the urethra and bladder. Your doctor may take a biopsy or remove stones. ??? The cystoscope will be removed, and your bladder will be emptied. The procedure may vary among health care providers and hospitals. What can I expect after the procedure? After the procedure, it is common to have: ??? Some soreness or pain in your abdomen and urethra. ??? Urinary symptoms. These include: ? Mild pain or burning when you urinate. Pain should stop within a few minutes after you urinate. This may last for up to 1 week. ? A small amount of blood in your urine for several days. ? Feeling like you need to urinate but producing only a small amount of urine. Follow these instructions at home: Medicines ??? Take aauv-lib-vkitljv and prescription medicines only as told by your health care provider. ??? If you were prescribed an antibiotic medicine, take it as told by your health care provider. Do not stop taking the antibiotic even if you start to feel better. General instructions ??? Return to your normal activities as told by your health care provider. Ask your health care provider what activities are safe for you. ??? If you were given a sedative during the procedure, it can affect you for several hours. Do not drive or operate machinery until your health care provider says that it is safe. ??? Watch for any blood in your urine. If the amount of blood in your urine increases, call your health care provider. ??? Follow instructions from your health care provider about eating or drinking restrictions. ??? If a tissue sample was removed for testing (biopsy) during your (more content not included)... [facility] 04-11-2024 Evaluation + Plan note Diagnostic Tests PendingUroVysion Fish and Urine Cyto ([facility]) 04/11/24 [facility] 03-31-2024 History of Present illness Narrative Associated Problem(s): Prediabetes Glucose in [...] for possible cystoscopy. documented in this encounter [facility] 02-24-2024 History of Present illness Narrative Images from the original note were not included. Follow up Diagnosis: NUB Location: Left Anabaptism Last visit:02/09/2024 Patient is here for Biopsy today. Established Patient All pertinent medical history, medications, and allergies were reviewed. General Exam: alert, oriented to person, place, and time, normal affect, well appearing Unaccompanied A focused exam completed based on patient reported problems, see below: 1. Neoplasm of unspecified behavior of bone, soft tissue, and skin Left Anabaptism Erythematous papule Lesion biopsy Type of biopsy: [...] pending biopsy results documented in this encounter [facility] 02-24-2024 History of Present illness Narrative Associated Problem(s): Spinal stenosis of [...] follow with ortho. documented in this encounter [facility] 02-09-2024 History of Present illness Narrative Lesions: Location: left cheondoism Duration: years Quality: denies pain, denies itch, [...] see below: 1. Neoplasm of skin Left Anabaptism 1.1 x 1.0 cm Erythematous papule Recommended biopsy today. Lesion is suspicious for BCC and biopsy is needed. He would like to return after the holiday for biopsy. Return in 1-2 weeks. Stressed importance of his return for biopsy 2. Seborrheic keratosis Right Anabaptism Stuck on verrucous, variably pigmented papules and [...] and LN2 [place] documented in this encounter [facility] 12-16-2023 History of Present illness Narrative Images from the original note were not included. Subjective Patient ID: Bill Allen is a 73 y.o. male who presents for Toe Problem (73 yo [employer] presents today with concerns of a bent [...] Past Medical History: Diagnosis Date Arthritis Hypertension (CMS/HCC) Medications Current Outpatient Medications: cholecalciferol (Vitamin D-3) 50 MCG (1999 UT) capsule, Take 2,000 Units by mouth in the morning., Disp: , Rfl: coenzyme Q-10 100 MG capsule, Take 1 capsule by mouth 1 (one) time each day at the same time, Disp: , Rfl: Yenijmxjdyf-Dippxztcm-Oxa C-Mn (Glucosamine 1500 Complex) capsule, Take 1 [...] Jose Yen DPM documented in this encounter [facility] 11-25-2023 History of Present illness Narrative Physical Therapy Treatment Visit / [...] difficulty putting on shoes and socks. Precautions: Duff; h/o blood clots, on thinners Subjective: Pt [...] instructed in home exercise program. - met [facility] Goals: To be met in 10 weeks [...] to home program. documented in this encounter [facility] History of Present illness Narrative Physical Therapy Treatment Visit Patient Name: Bill Allen Today's Date: 11/11/2023 Encounter Diagnoses Name Primary? Bilateral primary osteoarthritis of hip Yes Spinal stenosis, unspecified spinal region Visit number: 4 Timed Code Treatment Minutes: 42 minutes Total Treatment Time: 42 minutes Time In: 0930 Time Out: 1014 History: Pt states he [...] difficulty putting on shoes and socks. Precautions: Duff; h/o blood clots, on thinners Subjective: Pt [...] to be instructed in home exercise program. [facility] Goals: To be met in 10 weeks [...] sign below. Date: documented in this encounter [facility] 11-05-2023 History of Present illness Narrative Physical Therapy Treatment Visit Patient [...] difficulty putting on shoes and socks. Precautions: Duff; h/o blood clots, on thinners Subjective: Pt [...] to be instructed in home exercise program. [facility] Goals: To be met in 10 weeks [...] sign below. Date: documented in this encounter [facility] Healthcare Evaluation + Plan note No data available for this section [facility] Evaluation note Diagnosis Onset Date Bilateral primary osteoarthritis of hip acute Spinal stenosis [facility] Work Phone: Evaluation note* Diagnosis Hammer toe of right foot- Primary History of DVT (deep vein thrombosis) documented in this encounter [facility] HealthcareEvaluation note* Diagnosis Benign hypertension (CMS/HCC)- Primary [...] keratosis Actinic keratosis documented in this encounter [facility] HealthcareEvaluation note* Diagnosis Benign hypertension (CMS/HCC)- Primary [...] Other premature beats documented in this encounter [facility] HealthcareEvaluation note* Diagnosis Benign hypertension (CMS/HCC)- Primary [...] and skin- Primary documented in this encounter [facility] HealthcareEvaluation note* Diagnosis Bilateral primary osteoarthritis of hip- Primary Spinal stenosis, unspecified spinal region documented in this encounter [facility] HealthcareEvaluation note* Diagnosis Bilateral primary osteoarthritis of hip- Primary Spinal stenosis, unspecified spinal region documented in this encounter [facility] HealthcareEvaluation noteNo assessment information [facility] Work Phone: Evaluation note* Diagnosis Benign hypertension [...] Other abnormal glucose [facility] No data available for this section [facility] Progress note No data available for this section [facility] Summary Purpose Family History No Family History Records FoundNo Family History Records FoundNo Family History Records FoundNo Family History Records FoundNo Family History Records FoundNo Family History Records Found No data available for this section No data available for this section Advance Directives Advance Directive Response Recorded Date/ [...] section and content) DATE CREATED AUTHOR 09/07/2017 [facility] DATE CREATED AUTHOR AUTHOR'S ORGANIZ ATION 07/24/2022 [facility] DATE CREATED AUTHOR AUTHOR'S ORGANIZ ATION 10/22/2023 [facility] DATE CREATED AUTHOR AUTHOR'S ORGANIZ ATION 03/26/2024 [facility] DATE CREATED AUTHOR AUTHOR'S ORGANIZ ATION 04/03/2024 [facility] EPIC DATE CREATED AUTHOR AUTHOR'S ORGANIZ ATION 04/12/2024 [facility] Care Teams (unrecognized sec tion and content) Personnel Name: DAYRON CERVANTES MD Address: Address: [address] [place], [place] [address] [address] [place] Team Status: Active Member Role Status Dates [...] September 18, 2023 End: September 18, 2023 Government Property Inspector Relationship Specialty Start Date End Date Dayron Cervantes MD [address] [place] [phone] PCP - General Family Medicine 09/04/23 Government Property Inspector Relationship Specialty Start Date End Date Dayron Cervantes MD [address] [place] [phone] PCP - General Family Medicine 09/04/23 Government Property Inspector Relationship Specialty Start Date End Date Dayron Cervantes MD [address] [place] [phone] PCP - General Family Medicine 09/04/23 Government Property Inspector Relationship Specialty Start Date End Date Dayron Cervantes MD [address] [place] [phone] PCP - General Family Medicine 09/04/23 Government Property Inspector Relationship Specialty Start Date End Date Dayron Cervantes MD [address] [place] [phone] PCP - General Family Medicine 09/04/23 Government Property Inspector Relationship Specialty Start Date End Date Dayron Cervantes MD [address] [place] [address] PCP - General Family Medicine 09/04/23 Government Property Inspector Relationship Specialty Start Date End Date Dayron Cervantes MD [address] [place] [address] PCP - General Family Medicine 09/04/23 Government Property Inspector Relationship Specialty Start Date End Date Dayron Cervantes MD [address] [place] [phone] PCP - General Family Medicine 09/04/23 Government Property Inspector Relationship Specialty Start Date End Date Dayron Cervantes MD [address] [place] [phone] PCP - General Family Medicine 09/04/23 Government Property Inspector Relationship Specialty Start Date End Date Dayron Cervantes MD [address] [place] [phone] PCP - General Family Medicine 09/04/23 Government Property Inspector Relationship Specialty Start Date End Date Dayron Cervantes MD [address] [place] [phone] PCP - General Family Medicine 09/04/23 Team Status: Inactive Member Role Status Dates Dayron Cervantes MD Primary Care Provider Active S tart: March 19, 2024 End: March 19, 2024 Kevan Berrios DO Attending Provider Active Start: March 19, 2024 End: March 19, 2024 Government Property Inspector Relationship Specialty Start Date End Date Dayron Cervantes MD [address] [place] [phone] PCP - General Family Medicine 09/04/23 Government Property Inspector Relationship Specialty Start Date End Date Dayron Cervantes MD [address] [place] [address] PCP - General Family Medicine 09/04/23 Government Property Inspector Relationship Specialty Start Date End Date Dayron Cervantes MD [address] [place] [address] PCP - General Family Medicine 09/04/23 Goals (unrecognized section and content) Goals may be documented in a n alternate sectionGoals may be documented in an alternate sectionGoals may be documented in an alternate section No data available for this section No data available for this section Reason for Visit (unrecogniz ed section and content) Reason Comments Toe Problem 73 yo [employer] presents to day with concerns of a bent toe on right foot, 4th digit. Pt relates some numbness BL feet. Unsure if issue is vascular or podiatric. Was having pain, but denies pain at this time. Reason Comments Follow-up 6m Reason Comments Follow-up Specialty Diagnoses / Procedures Referred By Contac t Referred To Contact Physical Therapy Diagnoses Bilateral primary osteoarthritis of hip Spinal stenosis, site unspecified Procedures AL PHYSICAL THERAPY EVALUATION LOW COMPLEX 20 MINS Izabela Blackburn MD [address] [facility], [address] [place] [address] Staci Omer, PT Referral ID Status Reason Start Date Expiration Date V isits Requested Visits Authorized [id number] Authorized 09/24/2023 03/22/2024 30 30 Referral ID Status Reason Start Date Expiration Date Visits Re quested Visits Authorized [id number] Closed 09/24/2023 03/22/2024 30 30 Reason Comments [...] BE BASED ON THE PRIMARY CLINICAL RECORDS. [facility]. provides no warranty or guarantee of the accuracy or completeness of information in this document.
== END 2024-04-19 10:09 | disposition home or self-care (01) ==
LOC: CT 10:08
PROVIDERS: PCP Family Medicine; Visit Provider Urology
DX: R31.0 Gross hematuria (principal); N20.0 Calculus of kidney; K55.1 Chronic vascular disorders of intestine
CPT/HCPCS: 74178; Q9967

== ENCOUNTER 2024-05-13 12:56 | Outpatient (OUT) | payer MEDICARE, OTHER, SELFPAY | END 2024-05-13 12:57 | disposition home or self-care (01) | LOC: PST 12:56 | PROVIDERS: PCP Family Medicine; Visit Provider Urology | DX: Z01.818 Encounter for other preprocedural examination (principal); R31.0 Gross hematuria; R35.1 Nocturia; N40.1 Benign prostatic hyperplasia with lower urinary tract symptoms; N52.9 Male erectile dysfunction, unspecified; Z87.442 Personal history of urinary calculi ==

== ENCOUNTER 2024-05-16 07:26 | Day surgery (SDC) | payer MEDICARE, OTHER, SELFPAY ==
--- OUTSIDE RECORDS SUMMARY | 2024-05-16 07:31 | XMS_ITS | CCD ---
Author Organization [facility] Care Team Providers Care Relationship Executive Name Role Phone CHARBEL ZUÑIGA Unavailable Unavailable [...] DAYRON Mckinney Admitting Unavailable NADERER, DR DAYRON Mckinnye Attending Unavailable NADERER, DR DAYRON Mckinney Primary Care Unavailable NADERER, DR DAYRON Mckinney Consulting Unavailable NADERER, DR DAYRON Mckinney Admitting Unavailable NADERER, DR DAYRON Mckinney Attending Unavailable NADERER, DR DAYRON Mckinney Primary Care Unavailable NADERER, DR DAYRON Mckinney Consulting Unavailable NADERER, DR DAYRON Mckinney Admitting Unavailable NADERER, DR DAYRON Mckinney Attending Unavailable SAMSA ., OUSMANE Admitting Unavailable MOULTRIE, DR KELY Rae Consulting Unavailable SAMSA ., OUSMANE Attending Unavailable NADERER, DR DAYRON Mckinney Primary Care Unavailable SAMSA ., OUSMANE Consulting Unavailable MD Dayron Cervantes Primary Care Provider MD Stanley Gregory II Attending Provider MD Izabela Blackburn Attending Provider KELY GARZA Referring Unavailable NADEREJayden, DAYRON Primary Care Unavailable KELY GARZA Attending Unavailable KELY GARZA Referring Unavailable NADERER, DAYRON Primary Care Unavailable JOANNA FRAUSTO Admitting Unavailable JOANNA FRAUSTO Attending Unavailable JOANNA FRAUSTO Referring Unavailable VALENTINE GOMEZ Attending Unavailable DAYRON CERVANTES Primary Care Unavailable Jhon CROCKETT, Dayron Primary Care Provider Jhon CROCKETT, Dayron Primary Care Provider Kevan Berrios DO Attending Provider [phone] DAYRON CERVANTES Referring Unavailable Miceala IRELAND Attending Unavailable Micaela IRELAND Attending Unavailable Micaela IRELAND Admitting Unavailable DAYRON CERVANTES Primary Care Physician [phone] Micaela IRELAND Attending Unavailable Jhon CROCKETT, Dayron Primary Care Provider [phone] Dayron Cervantes MD Unavailable Arjun Chung MD Unavailable Colten France DO Unavailable Colten France DO Attending Provider COLTEN FRANCE Attending Unavailable ARJUN CHUNG Referring Unavailable STACI OMER Attending Unavailable ALEXEY, IZABELA Referring Unavailable NADEREDAYRON Carpenter Attending Unavailable DAYRON CERVANTES Attending Unavailable ANA OSULLIVAN Attending Unavailable JOSE YEN Attending Unavailable OMERSTACI Attending Unavailable BLACKBURN, IZABELA Referring Unavailable OMER, STACI Attending Unavailable BLACKBURN, IZABELA Referring Unavailable OMERSTACI Attending Unavailable BLACKBURN, IZABELA Referring Unavailable OMER, STACI Attending Unavailable BLACKBURN, IZABELA Referring Unavailable NADEREJayden, DAYRON Attending Unavailable ARJUN CHUNG Attending Unavailable ANA OSULLIVAN Attending Unavailable tSanley Gregory II Admitting Unavaillinda Gregory II, Stanley Bateman Attending Unavaillinda e Dayron Cervantes Primary Care Unavailable Blackburn, Izabela E Admitting Unavailable Izabela Blackburn E Attending Unavailable Dayron Cervantes Primary Care Unavailable Colten France Admitting Unavailable Colten France Attending Unavailable Dayron Cervantes Primary Care Unavailable Kevan Berrios Admitting Unavailable Kevan Berrios Attending Unavailable Dayron Cervantes Primary Care Unavailable Stanley Gregory II Admitting Unavaillinda Gregory II, Stanley Bateman Attending Unavailabl e Dayron Cervantes Primary Care Unavailable Medications Current Medications Medication Drug Class(es) Dates Sig (Normalized) Sig (Original) cephalexin 500 mg oral capsule (8 sources) Cephalosporin Antibacterial Start: 05-10-2024 take 1 capsule by mouth twice daily Cephalexin 500 mg capsule Active 500 MG PO Twice daily May 13, 2024 12:00am cholecalciferol 0.05 mg oral tablet (20 sources) Vitamin D Start: 05-13-2024 take 1 tablet by mouth once daily Cholecalciferol (Vitamin D3) (Vitamin D3) 50 mcg (2,000 unit) tablet Active 50 MCG PO every day at noon May 13, 2024 12:00am Start: 07-15-2023 End: 05-13-2024 Cholecalciferol (Vitamin D3) 62.5 mcg (2,500 unit) capsule Discontinued MCG PO July 14, 2023 11:00pm May 13, 2024 8:00am Start: 07-15-2023 Cholecalcifero l (Vitamin D3) 62.5 mcg (2,500 unit) capsule Active MCG PO July 14, 2023 11:00pm Start: 07-15-2023 Cholecalcifero l (Vitamin D3) Active MCG PO July 15, 2023 12:00am take 1 capsule by mo uth in the morning cholecalciferol (Vitamin D-3) 50 MCG (2000 UT) capsule Take 2,000 Units by mouth in the morning. Active chondroitin sulfates 400 mg / glucosamine hydrochloride 500 mg oral tablet (1 source) take 1 tablet by mouth three times daily glucosamine-chondroitin 500-400 mg tablet Take 1 tablet by mouth 3 (three) times a day. Active Coenzyme Q10 (2 sources) Start: 025 Coenzyme Q10 30 mg, Oral, TID, Refills(s) 0 Start Date: 04/11/24 Status: Ordered dicyclomine hydrochloride 20 mg oral tablet (19 sources) Anticholinergic End: 024 take 1 tablet by mouth four times daily as needed dicyclomine (Bentyl) 20 MG tablet Take 20 mg by mouth 4 (four) times a day as needed 02/24/2024 Discontinued Fish Oils (18 sources) Start: 025 take 500 mg by mouth once daily Fish Oil 500 mg, Oral, Daily, Refill(s) 0 Start Date: 04/11/24 Status: Ordered take 1 capsule by mouth once jermaine ly omega-3 (FISH OIL) 300 MG capsule Take 300 mg by mouth Daily Active glucosamine 500 mg oral tablet (6 sources) Start: 04-11-2024 take 500 mg by mouth twice daily glucosamine 500 mg, Oral, BID, Refills(s) 0 Start Date: 04/11/24 Status: Ordered Start: 07-15-2023 take 1 capsule by mo [facility] twice daily at mealtime Glucosamine Sulfate 1,000 mg capsule Active 1000 MG PO Twice daily July 14, 2023 11:00pm administer with meals Tfvfkqggljv-Nvukvgyid-Msf C-Mn (Glucosamine 1500 Complex) capsule (20 sources) Glucosamine-Sam droit-Vit C-Mn (Glucosamine 1500 Complex) capsule Take 1 capsule by mouth in the morning. Active lisinopril 20 mg oral tablet (20 sources) Angiotensin Converting Enzyme Inhibitor Sta rt: End : take 1 tablet by mouth once daily at bedtime Lisinopril 20 mg tablet Active 20 MG PO Daily at bedtime May 13, 2024 12:00am Start: 07-15-2023 End: 05-13-2024 take 1 tablet by mouth once daily lisinopril 10 mg Tab 10 mg = 1 tab(s), Oral, Daily, Refills(s) 0 Start Date: 04/11/24 Status: Ordered take 1 tablet by jim in the morning lisinopriL (PRINIVIL,ZESTRIL) 20 mg tablet Take 1 tablet (20 mg total) by mouth in the morning. Active Medical marijuana (4 sources) Start: 07-15-2023 Medical mariju adrianne Active PO Daily July 14, 2023 11:00pm Start: 07-15-2023 Medical mariju adrianne Active PO July 14, 2023 11:00pm Start: 07-15-2023 Medical mariju adrianne Active PO July 15, 2023 12:00am medical marijuana (1 source) medical marijuan a Inhale daily. Active metoprolol tartrate 50 mg oral tablet (20 sources) beta-Adrenergic Chelsi Start: 07-15-2023 End: 10-04-2024 take 1 tablet by mouth twice daily Metoprolol Tartrate 50 mg tablet Active 50 MG PO Twice daily July 14, 2023 11:00pm Start: 07-15-2023 Metoprolol Tar trate Active MG PO July 15, 2023 12:00am rdnsgvpf-yilu-XS-calcium &mi ns (THERAGRAN-M) 9 mg iron-400 mcg tablet (1 source) take 0.5 tablet by mouth once in the morning ujnlvikz-rimg-QA-calcium &mins (THERAGRAN-M) 9 mg iron-400 mcg tablet Take 0.5 tablets by mouth in the morning. Active multivitamin (Theragran) tab let (20 sources) take 1 tablet by mouth in the morning multivitamin (Theragran) tablet Take 1 tablet by mouth in the morning. Active Multivitamin preparation (2 sources) Start: take 1 tablet by mouth once daily Multivitamin Active 1 TAB PO Daily July 15, 2023 12:00am Multivitamin tablet (2 sources) Start: take 0.5 tablet by mouth once daily Multivitamin tablet Active 0.5 TAB PO every day at noon July 14, 2023 11:00pm Start: 07-15-2023 take 1 tablet by [facility] once daily Multivitamin tablet Active 1 TAB PO Daily July 14, 2023 11:00pm omega 5-gxm-okk-fish oil (Fish OiL) 300-1,000 mg capsule (1 source) omega 3-dha-epa- fish oil (Fish OiL) 300-1,000 mg capsule Take by mouth daily. Active Pipestem 8-Abz-Gme-Fish Oil (Fish Oil) 60-90-500 mg capsule (2 sources) Start: 09-24-2023 take 1 capsule by mouth once daily at bedtime Pipestem 1-Ode-Avo-Fish Oil (Fish Oil) 60-90-500 mg capsule Active 1 CAP PO Daily at bedtime September 23, 2023 11:00pm Start: 09-24-2023 take 1 capsule by mo [facility] once daily Pipestem 3-Cxz-Lfp-Fish Oil (Fish Oil) 60-90-500 mg capsule Active 1 CAP PO Daily September 23, 2023 11:00pm simvastatin 20 mg oral tablet (20 sources) HMG-CoA Reductase Inhibitor Start: 07-15-2023 End: 10-04-2024 take 1 tablet by mouth once daily at bedtime Simvastatin 20 mg tablet Active 20 MG PO Daily at bedtime July 14, 2023 11:00pm terazosin 10 mg oral tablet (20 sources) alpha-Adrenergic Chelsi Start: 04-11-2024 take 10 mg by mouth once daily terazosin 10 mg, Oral, Daily, Refills(s) 0 Start Date: 04/11/24 Status: Ordered Start: 07-15-2023 End: 10-04-2024 take 1 capsule by mouth once daily at bedtime Terazosin 10 mg capsule Active 10 MG PO Daily at bedtime July 14, 2023 11:00pm ubidecarenone 100 mg oral ca psule (5 sources) Start: 07-15-2023 Coenzyme Q10 ( Co Q-10) 100 mg capsule Active 100 MG PO every day at noon July 14, 2023 11:00pm take 1 capsule by mouth three ti mes daily coenzyme Q10 30 mg capsule Take 1 capsule (30 mg total) by mouth 3 (three) times a day. Active ubidecarenone 100 mg / vitamin e 5 unt oral capsule (20 sources) take 1 capsule by mouth once daily coenzyme Q-10 100 MG capsule Take 1 capsule by mouth 1 (one) time each day at the same time Active Vitamin D3 (2 sources) Start: 5 take 10 ug by mouth once daily Vitamin D3 10 mcg, Oral, Daily, Refills(s) 0 Start Date: 04/11/24 Status: Ordered warfarin sodium 5 mg oral tablet (20 sources) Vitamin K Antagonist Start: 4 take 1 tablet by mouth once daily Warfarin 5 mg tablet Active 5 MG PO every day at noon July 14, 2023 11:00pm Completed/Discontinued Medications Medication Drug Class(es) Dates Sig (Normalized) Sig (Original) Nirmatrelvir&Riton avir 300/100 (Paxlovid, 300/100,) 20 x 150 MG & 10 x 100MG tablet therapy pack (7 sources) Start: 03-10-2024 End: 05-10-2024 Nirmatrelvir&Ritonavir 300/100 (Paxlovid, 300/100,) 20 x 150 MG & 10 x 100MG tablet therapy pack Indications: COVID-19 Take 1 each by mouth See administration instructions 1 each 03/10/2024 05/10/2024 Discontinued (Therapy completed) Start: 03-10-2024 Nirmatrelvir&R itonavir 300/100 (Paxlovid, 300/100,) 20 x 150 MG & 10 x 100MG tablet therapy pack Indications: COVID-19 Take 1 each by mouth See administration instructions 1 each 03/10/2024 Active Problems Active Problems Problem Classification Problem [...] 03-04-2023 Chronic Genitourinary symptoms and ill-defined conditions (20 sources) hematuria; Translations: [Gross hematuria] Onset: 03-31-2024 03-31-2024 Episodic Hyperplasia of prostate (20 sources) Nocturia due to benign prostatic hypertrophy; Translations: [Benign prostatic hyperplasia with lower urinary tract symptoms] Onset: 03-04-2023 03-04-2023 Chronic Neoplasms of unspecified nature or uncertain behavior (6 sources) Neoplasm of skin; Translations: [Neoplasm of unspecified behavior of bone, soft tissue, and skin] 02-09-2024 Episodic Nutritional deficiencies (20 sources) Vitamin D deficiency; Translations: [Vitamin D deficiency, unspecified] Onset: 03-04-2023 03-04-2023 Chronic Osteoarthritis (20 sources) Primary coxarthrosis, bilateral; Translations: [Bilateral primary osteoarthritis of hip] Onset: 03-04-2023 07-15-2023 Chronic Other acquired deformities (2 sources) Surgical wound finding; Translations: [Other acquired deformity of head] 05-12-2024 Episodic Other aftercare (5 sources) equipment 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) use of 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; Translations: [DETENTION CURRNT USE ANTICOAGULANTS] Onset: 07-17-2022 Episodic Other lower respiratory disease (4 sources) Pulmonary fibrosis, unspecified; Translations: [PULMONARY FIBROSIS UNSPECIFIED] Onset: 11-27-2021 Chronic Other lower respiratory disease (20 sources) Fibrosis of lung; Translations: [Pulmonary fibrosis, unspecified] Onset: 03-04-2023 03-04-2023 Chronic Other male genital disorders (3 sources) Male erectile dysfunction, unspecified; Translations: [Erectile dysfunction] Onset: 04-11-2024 Chronic Other non-epithelial cancer of skin (4 sources) Basal cell carcinoma of denominational; Translations: [Basal cell carcinoma of skin of other parts of face] 05-10-2024 Episodic Other non-traumatic joint disorders (4 sources) Hip pain; Translations: [Pain in right [...] Other aftercare (20 sources) 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; 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] Onset: 03-04-2023 03-04-2023 Episodic Other aftercare (20 sources) Long-term current use of drug therapy; Translations: [Other senior living (current) drug therapy] Onset: 09-04-2023 09-04-2023 Episodic Other aftercare (20 sources) Patient encounter status; Translations: [Encounter for screening for malignant neoplasm of prostate] Onset: 09-04-2023 09-04-2023 Episodic Other aftercare (1 source) 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; 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] 09-29-2023 Episodic Other gastrointestinal disorders (20 sources) Irritable [...] Episodic Comment on above: with right sided christo edmonds Results Test Name Value Interpretation Reference Range Facility Basic Metabolic Panelon 04-17 Anion gap [Moles/Vol] 10.4 mmol/L Normal 6.0-15.0 [facility] Comment on above: Performed By: #### B MP #### [address] Calcium [Mass/Vol] 9.9 mg/dL Normal 8.6-10.3 [facility] Comment on above: Result Comment: PERF ORMED BY: [place] [address] PATHOLOGIST [employer] MELISSA AMBROCIO M.D. Performed By: #### B MP #### [address] Chloride [Moles/Vol] 108 mmol/L High 98-107 [facility] Comment on above: Performed By: #### B MP #### [place] [address] [place] CO2 [Moles/Vol] 25.9 mmol/L Normal 21.0-31.[address] [facility] Comment on above: Performed By: #### B MP #### [address] Creatinine [Mass/Vol] 1.14 mg/dL Normal 0.70-1.30 [facility] Comment on above: Performed By: #### B MP #### [place] [address] [place] GFR/1.73 sq M.predicted MDRD (S/P/Bld) [Vol rate/Area] mL/min/{1.73_m2} Normal [facility] Comment on above: Performed By: #### B MP #### [place] [address] [place] Glucose [Mass/Vol] 125 mg/dL High 70-100 [facility] Comment on above: Result Comment: [place] Glucose Reference Range is dependent on time and content of last meal. Glucose of more than 200 mg/dL in a nonstressed, ambulatory subject supports the diagnosis of Diabetes Mellitus. ADA recommended reference range Performed By: #### B MP #### [facility] [address] Potassium [Moles/Vol] 4.3 mmol/L Normal 3.5-5.1 [facility] Comment on above: Performed By: #### B MP #### [facility] [address] Sodium [Moles/Vol] 140 mmol/L Normal 136-145 [facility] Comment on above: Performed By: #### B MP #### [facility] [address] Urea nitrogen [Mass/Vol] 20 mg/dL Normal 7-25 [facility] Comment on above: Performed By: #### B MP #### [facility] [address] Basic metabolic 1998 panelon 05-13-2024 Anion gap [Moles/Vol] 10.4 mmol/L 6.0 - 15.0 meq/L [facility] Calcium [Mass/Vol] 9.9 mg/dL 8.6 - 10. 3 mg/dL [facility] Chloride [Moles/Vol] 108 mmol/L High 98 - 10 7 mmol/L [facility] CO2 [Moles/Vol] 25.9 mmol/L 21.0 - 31.0 mmol/L [facility] Creatinine (U) [Mass/Vol] 1.14 mg/dL 0.70 - 1.30 mg/dL [facility] ESTIMATED GFR mL/Min [facility] care Glucose [Mass/Vol] 125 mg/dL High 70 - 100 mg/dL [facility] Comment on above: Random Glucose Refer ence Range is dependent on time and content of last meal. Glucose of more than 200 mg/dL in a nonstressed, ambulatory subject supports the diagnosis of Diabetes Mellitus. ADA recommended reference range Interpretation and review of laboratory results Abnormal [facility] Potassium [Moles/Vol] 4.3 mmol/L 3.5 - 5.1 mmol/L [facility] Sodium [Moles/Vol] 140 mmol/L 136 - 145 mmol/L [facility] Urea nitrogen [Mass/Vol] 20 mg/dL 7 - 25 mg/dL [facility] Basophils Auto (Bld) [#/Vol] Ordered By: Colten France on 05-13-2024 Basophils (Bld) [#/Vol] Automated basophil count 0.0-0.2 [facility] Basophils/100 WBC Auto (Bld) Ordered By: Colten France on 05-13-2024 Basophils/100 WBC (Bld) Automated basophil % . [facility] CBC W Auto Differential pane l (Bld)on 05-13-2024 Basophils (Bld) [#/Vol] 0.1 10*3/uL 0.0 - 0.2 10*3/uL [facility] Basophils/100 WBC Manual cnt (Syn fld) 0.7 % . [facility] Eosinophils (Bld) [#/Vol] 0.2 10*3/uL 0.0 - 0.45 10*3/uL [facility] Eosinophils/100 WBC Manual cnt (Syn fld) 2 % . [facility] Erythrocyte distribution width (RBC) [Ratio] 13.5 % 12.0 - 14.8 % [facility] Hematocrit (Bld) [Volume fraction] 43.5 % 38.8 - 50.0 % [facility] Hemoglobin (Bld) [Mass/Vol] 14.9 g/dL 13.0 - 17.0 g/dL [facility] Interpretation and review of laboratory results Abnormal [facility] Lymphocytes (Bld) [#/Vol] 2 10*3/uL 1.00 - 4.8 10*3/uL [facility] Lymphocytes/100 WBC Manual cnt (Syn fld) 19.9 % . [facility] MCH (RBC) [Entitic mass] 29.6 pg 27.5 - 35.2 pg [facility] MCHC (RBC) [Mass/Vol] 34.4 g/dL 32.5 - 35.6 g/dL [facility] MCV (RBC) [Entitic vol] 86.2 fL 83.5 - 101 fL [facility] Monocytes (Bld) [#/Vol] 0.9 10*3/uL High 0.0 - 0.8 10*3/uL [facility] Monocytes+Macrophages /100 WBC Manual cnt (Syn fld) 8.6 % . [facility] Neutrophils (Bld) [#/Vol] 7 10*3/uL 1.8 - 7.7 10*3/uL [facility] Neutrophils/[facility] WBC Manual cnt (Syn fld) 68.8 % . [facility] care NRBC 0 /100{WBC} 0 - 0.5 /100{WBC} [facility] Platelet mean volume (Bld) [Entitic vol] 7.5 fL 6.6 - 10.1 fL [facility] Platelets (Bld) [#/Vol] 197 10*3/uL 150 - 450 10*3/uL [facility] RBC LM.HPF (Urine sed) [#/Area] 5.05 10*6/uL 3.90 - 5.60 10*6/uL [facility] WBC (Bld) [#/Vol] 10.2 10*3/uL 4.1 - 10.5 10*3/uL [facility] WBC LM.HPF (Urine sed) [#/Area] 10.2 10*3/uL 4.1 - 10.5 10*3/uL [facility] Calcium [Mass/volume] in Ser um or PlasmaOrdered By: Colten France on 05-13-2024 Calcium [Mass/Vol] Calcium [Mass/volume ] in Serum or Plasma 8.6-10.3 [facility] Carbon dioxide, total [Moles /volume] in Serum or PlasmaOrdered By: Colten France on 05-13-2024 CO2 [Moles/Vol] Carbon dioxide, tota l [Moles/volume] in Serum or Plasma 21.0-31.0 [facility] Chloride [Moles/volume] in S [place] or PlasmaOrdered By: Colten France on 05-13-2024 Chloride [Moles/Vol] Chloride [Moles/vol ume] in Serum or Plasma High 98-107 [facility] Complete Blood Count Auto Di ffon 05-13-2024 Basophils (Bld) [#/Vol] 0.1 10*3/uL Normal 0.0-0.2 [facility] Comment on above: Result Comment: PERF ORMED BY: [facility] [address] PATHOLOGIST [employer] MELISSA AMBROCIO M.D. Performed By: #### C BC #### [address] Basophils/100 WBC (Bld) 0.7 % Normal . [facility] Comment on above: Performed By: #### C BC #### [address] Eosinophils (Bld) [#/Vol] 0.2 10*3/uL Normal 0.0-0.45 [facility] Comment on above: Performed By: #### C BC #### [address] Eosinophils/100 WBC (Bld) 2.0 % Normal . [facility] Comment on above: Performed By: #### C BC #### [address] Erythrocyte distribution width (RBC) [Ratio] 13.5 % Normal 12.0-14.8 [facility] Comment on above: Performed By: #### C BC #### [address] Hematocrit (Bld) [Volume fraction] 43.5 % Normal 38.8-50.0 [facility] Comment on above: Performed By: #### C BC #### [address] Hemoglobin (Bld) [Mass/Vol] 14.9 g/dL Normal 13.0-17.0 [facility] Comment on above: Performed By: #### C BC #### [address] Lymphocytes (Bld) [#/Vol] 2.0 10*3/uL Normal 1.00-4.8 [facility] Comment on above: Performed By: #### C BC #### [address] Lymphocytes/100 WBC (Bld) 19.9 % Normal . [facility] Comment on above: Performed By: #### C BC #### [address] MCH (RBC) [Entitic mass] 29.6 pg Normal 27.5-35.2 [facility] Comment on above: Performed By: #### C BC #### [address] MCV (RBC) [Entitic vol] 86.2 fL Normal 83.5-101 [facility] Comment on above: Performed By: #### C BC #### [address] Mean Corpuscular HGB Conc 34.4 g/dL Normal 32.5-35.6 [facility] Comment on above: Performed By: #### C BC #### [address] Monocytes (Bld) [#/Vol] 0.9 10*3/uL High 0.0-0.8 [facility] Comment on above: Performed By: #### C BC #### [address] Monocytes/100 WBC (Bld) 8.6 % Normal . [facility] Comment on above: Performed By: #### C BC #### [address] Neutrophils (Bld) [#/Vol] 7.0 10*3/uL Normal 1.8-7.7 [facility] Comment on above: Performed By: #### C BC #### [address] Neutrophils/100 WBC (Bld) 68.8 % Normal . [facility] Comment on above: Performed By: #### C BC #### [address] NRBC% 0.0 /100{WBC} Normal 0-0.5 [facility] Comment on above: Performed By: #### C BC #### [address] Platelet mean volume (Bld) [Entitic vol] 7.5 fL Normal 6.6-10.1 [facility] Comment on above: Performed By: #### C BC #### [address] Platelets (Bld) [#/Vol] 197 10*3/uL Normal 150-450 [facility] Comment on above: Performed By: #### C BC #### [address] RBC (Bld) [#/Vol] 5.05 10*6/uL Normal 3.90-5.60 [facility] Comment on above: Performed By: #### C BC #### [address] WBC (Bld) [#/Vol] 10.2 10*3/uL Normal 4.1-10.5 [facility] Comment on above: Performed By: #### C BC #### [address] Creatinine [Mass/volume] in Serum or PlasmaOrdered By: Colten France on 05-13-2024 Creatinine [Mass/Vol] Creatinine [Mass/v olume] in Serum or Plasma 0.70-1.30 [facility] ECG 12 lead ECGon 05-13-2024 ECG 12 lead ECG [facility] Main [place] [address] [place] [address] Electrocardiograph Report Signed Patient: Bill Allen MR#: [id number] 36 : 1950 Acct:[id number] Age/Sex: 73 / M ADM Date: 05/13/24 Loc: Room: Type: [facility] Attending Dr: Colten France DO Ordering Provider: Colten France DO Date of Service: 05/13/24 ECG/ECG 12 lead ECG: pst Copies to: Test Reason : Blood Pressure : */* mmHG Vent. Rate : 65 BPM Atrial Rate : 65 BPM P-R Int : 190 ms QRS Dur : 82 ms QT Int : 388 ms P-R-T Axes : 57 25 45 degrees QTcB Int : 403 ms Normal sinus rhythm Normal ECG No previous ECGs available Confirmed by Jimmy Becerril ([id number]) on 05/13/2024 4:41:31 PM Referred By: Electronically Signed By: Jimmy Becerril Transcribed By: MUS Signed By Jimmy Becerril MD 05/13/24 1641 Normal [facility] Eosinophils Auto (Bld) [#/Vo l]Ordered By: Colten France on 05-13-2024 Eosinophils (Bld) [#/Vol] Automated eosinophil count 0.0-0.45 [facility] Eosinophils/100 WBC Auto (Bl d)Ordered By: Colten France on 05-13-2024 Eosinophils/100 WBC (Bld) Automated eosinophil % . [facility] Erythrocyte distribution wid th Auto (RBC) [Ratio]Ordered By: Colten France on 05-13-2024 Erythrocyte distribution width (RBC) [Ratio] Erythrocyte distribution width [Ratio] by Automated count 12.0-14.8 [facility] Glucose [Mass/volume] in Ser um or PlasmaOrdered By: Colten France on 05-13-2024 Glucose [Mass/Vol] Glucose [Mass/volume ] in Serum or Plasma High 70-100 [facility] Comment on above: ADA recommended refe rence rangeRandom Glucose Reference Range is dependent on time and content of last meal. Glucose of more than 200 mg/dL in a nonstressed, ambulatory subject supports the diagnosis of Diabetes Mellitus. Hematocrit Auto (Bld) [Volum e fraction]Ordered By: Colten France on 05-13-2024 Hematocrit (Bld) [Volume fraction] Hematocrit [Volume Fraction] of Blood by Automated count 38.8-50.0 [facility] Hemoglobin [Mass/volume] in BloodOrdered By: Colten France on 05-13-2024 Hemoglobin (Bld) [Mass/Vol] Hemoglobin [Mass/volume] in Blood 13.0-17.0 [facility] Leukocytes [#/volume] correc sneha for nucleated erythrocytes in Blood by Automated counOrdered By: Colten France on 05-13-2024 WBC corrected for nucl RBC Auto (Bld) [#/Vol] Leukocytes [#/volume] corrected for nucleated erythrocytes in Blood by Automated coun 4.1-10.5 [facility] Lymphocytes Auto (Bld) [#/Vo l]Ordered By: Colten France on 05-13-2024 Lymphocytes (Bld) [#/Vol] Lymphocytes [#/volume] in Blood by Automated count 1.00-4.8 [facility] Lymphocytes/100 WBC Auto (Bl d)Ordered By: Colten France on 05-13-2024 Lymphocytes/100 WBC (Bld) Lymphocytes/100 leukocytes in Blood by Automated count . [facility] MCH Auto (RBC) [Entitic mass ]Ordered By: Colten France on 05-13-2024 MCH (RBC) [Entitic mass] MCH [Entitic mass] by Automated count 27.5-35.2 [facility] MCHC Auto (RBC) [Mass/Vol]Or dered By: Colten France on 05-13-2024 MCHC (RBC) [Mass/Vol] MCHC [Mass/volume] by Automated count 32.5-35.6 [facility] MCV Auto (RBC) [Entitic vol] Ordered By: Colten France on 05-13-2024 MCV (RBC) [Entitic vol] MCV [Entitic volume] by Automated count 83.5-101 [facility] Monocytes Auto (Bld) [#/Vol] Ordered By: Colten France on 05-13-2024 Monocytes (Bld) [#/Vol] Automated blood monocyte count High 0.0-0.8 [facility] Monocytes/100 WBC Auto (Bld) Ordered By: Colten France on 05-13-2024 Monocytes/100 WBC (Bld) Automated monocyte % . [facility] Neutrophils Auto (Bld) [#/Vo l]Ordered By: Colten France on 05-13-2024 Neutrophils (Bld) [#/Vol] Neutrophils [#/volume] in Blood by Automated count 1.8-7.7 [facility] Neutrophils/100 WBC Auto (Bl d)Ordered By: Colten France on 05-13-2024 Neutrophils/100 WBC (Bld) Automated neutrophil % . [facility] No Panel InformationOrdered By: Colten France on 05-13-2024 Estimated GFR (CKD-EPI) > 60.0 mL/Min [facility] Creatinine Clearance (Chem N/A [facility] Nucleated erythrocytes [Pres ence] in Blood by Automated countOrdered By: Colten France on 05-13-2024 Nucleated RBC Auto Ql (Bld) Nucleated erythrocytes [Presence] in Blood by Automated count 0-0.5 [facility] Platelet mean volume Auto (B ld) [Entitic vol]Ordered By: Colten France on 05-13-2024 Platelet mean volume (Bld) [Entitic vol] Platelet mean volume [Entitic volume] in Blood by Automated count 6.6-10.1 [facility] Platelets Auto (Bld) [#/Vol] Ordered By: Colten France on 05-13-2024 Platelets (Bld) [#/Vol] Platelets [#/volume] in Blood by Automated count 150-450 [facility] Potassium [Moles/volume] in Serum or PlasmaOrdered By: Colten France on 05-13-2024 Potassium [Moles/Vol] Potassium [Moles/v olume] in Serum or Plasma 3.5-5.1 [facility] RBC Auto (Bld) [#/Vol]Ordere d By: Colten France on 05-13-2024 RBC (Bld) [#/Vol] Erythrocytes [#/volu me] in Blood by Automated count 3.90-5.60 [facility] Serum or plasma anion gap de terminationOrdered By: Colten France on 05-13-2024 Anion gap [Moles/Vol] Serum or plasma an ion gap determination 6.0-15.0 [facility] Sodium [Moles/volume] in Ser um or PlasmaOrdered By: Colten France on 05-13-2024 Sodium [Moles/Vol] Sodium [Moles/volume ] in Serum or Plasma 136-145 [facility] Urea nitrogen [Mass/volume] in Serum or PlasmaOrdered By: Colten France on 05-13-2024 Urea nitrogen [Mass/Vol] Urea nitrogen [Mass/volume] in Serum or Plasma 7-25 [facility] WBC Auto (Bld) [#/Vol]Ordere d By: Colten France on 05-13-2024 WBC (Bld) [#/Vol] Leukocytes [#/volume ] in Blood by Automated count 4.1-10.5 [facility] No Panel Informationon 05-10 Consent obtained: written (The rationale for Mohs as well as the risks, benefits, and alternatives. The risks of infection, scarring, bleeding, prolonged wound healing, incomplete removal, allergy to anesthesia or meds, nerve injury, and recurrence were addressed.) [place] Protocol: Procedure explained and questions answered to patient or proxy's satisfaction: Yes Test results available and properly labeled: Yes Pathology report reviewed: Yes Photo or diagram used for site identification: Yes Site/side marked: Yes Anticoagulation: Is the patient taking prescription anticoagulant and/or aspirin prescribed/recommended by a physician? Yes (Warfarin) Was the anticoagulation regimen changed prior to Mohs? No Anesthesia: Anesthesia method: local infiltration Local anesthetic: lidocaine 1% WITH epi and sodium bicarbonate Procedure Details: Biopsy accession number: [id number] Biopsy lab: [facility] Date of biopsy: 02/24/2024 Frozen section biopsy performed: Yes Specimen debulked: Yes Pre-Op diagnosis: basal cell carcinoma BCC subtype: nodular MohsAIQ Surgical site (if tumor spans multiple areas, please select predominant area): denominational Surgery side: left Surgical site (from skin exam): Left [employer] Pre-operative length (cm): 1.2 Pre-operative width (cm): 0.8 Indications for Mohs surgery: anatomic location where tissue conservation is critical Other indications for Mohs surgery: Tumor is greater than 1 cm on the face Previously treated? No Mohs Appropriate Use Criteria Score: 9 Details of micrographic surgery: Mohs accession number: [id number] Micrographic Surgery Details: Post-operative length (cm): 2.2 Post-operative width (cm): 2 Number of Mohs stages: 2 Stage 1 Comments: The area was prepped with Betadine, draped in a sterile fashion, and infiltrated with local anesthetic. Sterile technique was used throughout the procedure. The marked area of clinical tumor with a small rim of clinically normal surrounding skin was removed using Mohs technique with beveled edges. Hash nova were placed for orientation of the specimen. Hemostasis was achieved with electrodessication. After hemostasis, the defect was measured and recorded, a temporary sterile dressing was placed over the wound, and the patient was escorted to the waiting area. The specimen was oriented, mapped, and if necessary, divided into sections. A Mohs map was prepared. The specimen was placed in a labeled tanja dish and was taken to the Mohs lab where it was chromacoded and processed. Mohs sections were prepared with serial tissue sections, stained, and evaluated by Dr. Chung for interpretation of deep and peripheral margins. The Mohs map was marked accordingly. Amount of lidocaine used: 3.0 cc Estimated blood loss: 1.0 cc Defect size: 2.0 x 1.5 cm Number of blocks per stage: 1 Number of positive blocks: 1 Tumor features identified on Mohs section: basal carcinoma Tumor features identified on Mohs section comment: nodular pattern Depth of defect after stage: subcutaneous fat Stage 2 Comments: The patient returned to the procedure room, the dressing was removed, the tumor area was re-prepped and draped, and anesthesia was assessed and augmented as necessary. A layer of tissue around the positive margin(s) was removed, and the tissue was oriented, mapped, and processed in an identical fashion as for Stage 1. Hemostasis was achieved and dressing placed as in Stage 1. The patient was escorted to the waiting area. As with Stage 1, Mohs sections were prepared with serial tissue sections, stained, and evaluated by Dr. Chung for interpretation of deep and peripheral margins. The Mohs map was updated. Assistants: Sheron Alvarez CMA Amount of lidocaine used: 3.0 cc Estimated blood loss: 1.0 cc Defect size: 2.2 x 2.0 cm Number of blocks: 1 Number of positive blocks: 0. Tumor free margins were obtained and the Mohs procedure was considered complete. Tumor features identified on Mohs section: no tumor identified Depth of defect after stage: subcutaneous fat Patient tolerance of procedure: tolerated well, no immediate complications Reconstruction: Was the defect reconstructed? Yes Was reconstruction performed by the same Mohs surgeon? No If no, what is the specialty of the surgeon who did the reconstruction? ENT facial plastics When was reconstruction performed? different day Antibiotics: Were antibiotics given on the day of surgery? Yes When were antibiotics given? post-operative [facility] No Panel InformationOrdered By: Lin Gillis on 05-10-20[facility]W CONon 04-19-[address] [address] [address] Scan Report Signed Patient: BILL ALLEN MR#: [id number] : 1950 Acct:[id number] Age/Sex: 73 / M ADM Date: 04/19/24 Loc: CT Attending Dr: Micaela Ireland M.D. Ordering Physician: Micaela Ireland M.D. Date of Service: 04/19/24 Procedure(s): CT abdomen pelvis wo/w con Accession Number(s): [id number] cc: Dayron Cervantes M.D. [address] [address] Patient Name: BILL ALLEN MRN: [id number] date: 1950 Sex: M Assigned Patient Location: CT Current Patient Location: CT Accession/Order Number: [id number] Exam Date: 04/19/2024 10:24 Report Date: 04/19/2024 13:25 At the request of: MICAELA IRELAND Procedure: CT abdomen pelvis wo/w con EXAM: CT scan of the abdomen and pelvis without and with IV contrast using 100 mL of IV iodinated contrast. Dose reduction technique used: Automated exposure control and/or adjustment of the mA and/or kV according to patient size and/or use of iterative reconstruction technique. REASON FOR EXAM: Gross Hematuria, Kidney Stones COMPARISON: None FINDING Contour irregularity along the dome of the bladder, more prominent on the left side of the bladder dome where there is focal thickening and a filling defect protruding into the lumen. Filling defect protruding into the bladder along the posterior bladder base is likely from a prominent median lobe of the prostate. No hydronephrosis. No filling defects in the renal collecting systems or ureters evident. High attenuation along the renal pyramids bilaterally. Small bladder diverticulum. Multiple small bilateral renal cysts. Stenosis at the origin of the superior mesenteric artery is either moderate or severe. Mild fibrotic changes in both lungs. Normal appendix. No free intraperitoneal air. No free fluid in the abdomen or pelvis. No dilated or thickened loops of small bowel or colon. No ureteral or bladder calculi. No hydronephrosis. Liver, pancreas, spleen, bilateral kidneys, and bilateral adrenal glands are otherwise unremarkable. No lymphadenopathy in the abdomen or pelvis. Remainder unremarkable. CT/CT abdomen pelvis wo/w con IMPRESSION: 1. 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 Recommend follow-up with urology. 2. Possible bilateral nephrolithiasis. 3. 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 Electronically authenticated by: RUTH DOMINGUEZ Date: 04/19/2024 13:25 Dictated By: Ruth Dominguez M.D. Signed By: 04/19/24 1327 DD/ 1325 TD/TT: Camera Assembler: [facility] Radiology, Lisbethogkelsey loera MD - 04/19/2024 [place] [address] CT Scan Report Signed Patient: BILL ALLEN MR#: [id number] : 1950 Acct:[id number] Age/Sex: 73 / M ADM Date: 04/19/24 Loc: CT Attending Dr: Micaela Ireland M.D. Ordering Physician: Micaela Ireland M.D. Date of Service: 04/19/24 Procedure(s): CT abdomen pelvis wo/w con Accession Number(s): [id number] cc: Dayron Cervantes M.D. [place] [address] Patient Name: BILL ALLEN MRN: [facility]:[id number] date: 1950 Sex: M Assigned Patient Location: CT Current Patient Location: CT Accession/Order Number: [id number] Exam Date: 04/19/2024 10:24 Report Date: 04/19/2024 13:25 At the request of: MICAELA IRELAND Procedure: CT abdomen pelvis wo/w con EXAM: CT scan of the abdomen and pelvis without and with IV contrast using 100 mL of IV iodinated contrast. Dose reduction technique used: Automated exposure control and/or adjustment of the mA and/or kV according to patient size and/or use of iterative reconstruction technique. REASON FOR EXAM: Gross Hematuria, Kidney Stones COMPARISON: None FINDING Contour irregularity along the dome of the bladder, more prominent on the left side of the bladder dome where there is focal thickening and a filling defect protruding into the lumen. Filling defect protruding into the bladder along the posterior bladder base is likely from a prominent median lobe of the prostate. No hydronephrosis. No filling defects in the renal collecting systems or ureters evident. High attenuation along the renal pyramids bilaterally. Small bladder diverticulum. Multiple small bilateral renal cysts. Stenosis at the origin of the superior mesenteric artery is either moderate or severe. Mild fibrotic changes in both lungs. Normal appendix. No free intraperitoneal air. No free fluid in the abdomen or pelvis. No dilated or thickened loops of small bowel or colon. No ureteral or bladder calculi. No hydronephrosis. Liver, pancreas, spleen, bilateral kidneys, and bilateral adrenal glands are otherwise unremarkable. No lymphadenopathy in the abdomen or pelvis. Remainder unremarkable. CT/CT abdomen pelvis wo/w con IMPRESSION: 1. 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 Recommend follow-up with urology. 2. Possible bilateral nephrolithiasis. 3. 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 Electronically authenticated by: RUTH DOMINGUEZ Date: 04/19/2024 13:25 Dictated By: Ruth Dominguez M.D. Signed By: 04/19/24 1327 DD/ 1325 TD/TT: Camera Assembler: [facility] ITM Software Radiology Study observation (narrative) [facility] CT ABDOMEN PELVIS WO/W [place] dered By: Radiologist Radiology on 04-19-2024 [facility]: [facility] Fish and Urine Cyt o ([facility])on 04-18-2024 [facility] Diagnosis Info Invalid Interpretation Code [facility] Comment on above: Result Comment: A:Ur ine,Urine:Voided Diagnosis Summary - Clusters and singled atypical urothelial cells with degenerative changes; suspicious for urothelial neoplasm. Clinical correlation and tissue confirmation is recommended as clinically indicated. Diagnosis Summary - The [facility] FISH study detected a positive profile. [facility] FISH evaluates chromosomes 3, 7, 17, and 9p21 for aneuploid and deletion events associated with urothelial cell carcinoma. 29 cells were analyzed in this evaluation. Evidence of aneuploidy in at least 4 cells were found. These findings should be correlated with cytology and cystoscopy results. * CPT: 25892, 68283. Microscopic Notes - Microscopic Notes - Abnormal cells 9p21 deletions: Abnormal cells aneploid events: 4 Total cells analyzed: 29 Hematuria: Gross Description Site ID:A color Yellow fixative Alcohol Received 100 mls of clear yellow fluid with the patient's name and, Urine on the vial. Electronically signed by : on: 04/18/2024 11:44:36 Performed By: #### 1 [id number] #### [facility] [address] [place] [address] Ambulatory Visit Summaryon 0 04-11-2024 Ambulatory Visit Summary Ambulatory Visit Summary BILL ALLEN :1950 Visit Date:04/11/2024 Ambulatory Visit Instructions Your Diagnosis Gross hematuria Nocturia Kidney stones ED (erectile dysfunction) Tests Performed CT Urogram -- Results Pending -- Please visit your patient portal for your results or contact your primary care physician. Your Care Team Attending Physician - Micaela IRELAND MD Primary Care Physician - DAYRON CERVANTES MD Referring Physician - DAYRON CERVANTES MD Discharge Vitals Temperature (Oral) 36.2 ???C Heart Rate (Peripheral) 84 Blood Pressure 134/86 Height 175 cm Height 69 in Weight 100 kg Weight 220.462 lb BMI 32.65 What to do next You Need to Schedule the Following Appointments Follow Up with Micaela IRELAND MD, MADI When: Where: [facility] [address] [place] [address] [phone] Allergies No Known Allergies Problems Ongoing - [...] including vitamins, herbs, eye drops, creams, and iknd-dkm-vzgubpg medicines. ??? Any problems you or family [...] tells you to take them. ??? Taking ywbn-axd-iwmnbwv medicines, vitamins, herbs, and supplements. Tests You [...] and hospita (more content not included)... Normal [facility] Fish and Urine Cyt [facility] ([facility])on 04-11-2024 [facility] Method of Extraction Voided Normal [facility] Comment on above: Performed By: #### 1 [id number] #### [facility] [address] [place] [address] [facility] Number of Jars 1 Invalid Interpretation Code [facility] Comment on above: Performed By: #### 1 [id number] #### [facility] [address] [place] [address] [facility] Specimen Urine Normal [facility] Comment on above: Performed By: #### 1 [id number] #### [facility] [address] [place] [address] [facility] Type of Service Technical Only Normal [facility] Comment on above: Performed By: #### 1 [id number] #### [facility] [address] [place] [address] Urology Office/Clinic Noteon 04-11-2024 Urology Office/Clinic Note Urology Office/Clinic Note Chief Complaint referal for gross hematuria HPI Staff 73yr old male pt referred by Dayron Cervantes MD for gross hematuria. Pt seen in ER 1/4/25 for blood in urine. He was treated [...] Follow-up With When Contact Information BEKA CROCKETT, Micaela Carpenter, URL [facility] [address], [place] [address]- [phone] Additional Instructions: sched cysto and CTU Patient Education Cystoscopy Hematuria, Adult I, Brittni Murray, personally scribed for Dr. Ireland on 04/11/2024 14:14:58. . Documentation recorded by the scribe, Brittni Murray, accurately reflects the services(s) I performed and decisions made by me. Authenticated by Dr. Ireland on 04/11/2024 14:18:05. Problem List/Past Medical History Ongoing ED (erectile dysfunction) Gross hematuria Kidney stones Nocturia Historical No qualifying data Medications No active medications Allergies No Known Allergies Social History Alcoho (more content not included)... Normal [facility] Comment on above: Result Comment: Elec tronically Signed By: Micaela IRELAND MD\.br\Date and Time Signed: 04/11/24 14:18 EST\.br\Electronically Co-Signed By: Brittni Murray\.br\Date and Time Co-Signed: 04/11/24 14:15 EST URINE CULTURE, ROUTINEon Bacteria identified Cx Nom (U) Urine Culture, Routine [facility] Bacteria identified Cx Nom (U) Culture shows less than 10,000 colony forming units of bacteria per [facility] Bacteria identified Cx Nom (U) milliliter of urine. This colony count is not generally considered [facility] Bacteria identified Cx Nom (U) to be clinically significant. [facility] Bacteria identified Cx Nom (U) Performed at: [facility] Bacteria identified Cx Nom (U) [address] [place] [address] [phone] [facility] Bacteria identified Cx Nom (U) Survey Superintendent: Miguel Ángel Perea PhD, Phone: [phone] [facility] HbA1c (Bld) [Mass fraction]o n 03-31-2024 Interpretation and review of laboratory results Abnormal [facility] - Hematology and Cell countson 03-31-2024 HbA1c (Bld) [Mass fraction] 6 % [facility] Urinalysis macro (dipstick) panel (U)on 03-31-2024 Bilirubin, UA Few Negative - 4(70) +++ mg/dL [facility] Blood, UA Positive Negative - 50 [place]/mcL [facility] Clarity, UA Cloudy [facility] Color, UA Red [facility] Glucose, UA Positive Negative - 2000(110) ++++ mg/dL [facility] Interpretation and review of laboratory results Abnormal [facility] Ketones, UA Negative Negative - 160(16) ++++ mg/dL [facility] Leukocytes, UA Negative Negative - 500+++ Robbie/mcL [facility] Nitrite, UA Negative Negative - Positive [facility] pH, UA 5.5 5 - 9 [facility] Protein, UA Moderate Negative - 2000(20) ++++ mg/dL [facility] Spec Grav, UA 1.02 1 - 1.03 [facility] care Urobilinogen, UA 0.2 0.2 - 12 mg/dL [facility] Urine Cultureon 03-19-2024 Bacteria identified Cx Nom (U) <9,000 colonies/ml mixed bacterial skin contaminants 2 Days PERFORMED BY: [place] [address] PATHOLOGIST [employer] MELISSA AMBROCIO M.D. Normal [facility] Comment on above: Performed By: #### C UU #### [address] Urine cultureOrdered By: Andrés Berrios on 03-19-2024 Bacteria identified Cx Nom (U) Urine culture [facility] No Panel Informationon 02-23 Type of biopsy: tangential Informed consent: discussed [...] taken Amount of lidocaine used: 0.6 cc [facility] No Panel InformationOrdered By: Jody Romero on 02-24-2024 [facility] PROTHROMBIN TIME INR W/O COUMon 02-23-2024 Interpretation and review of laboratory results Abnormal [facility] Healthcare PT Coag (PPP) [Time] 28.3 s High [facility] TBH INR 2.97 [facility] Comment on above: DESIRED INR: 2.0-3.0 CONDITIONS NOT LISTED BELOW 2.5-3.5 FOR PROSTHETIC HEART VALVE REPLACEMENT 2.5-3.5 RECURRENT THROMBOSIS [facility] PROTHROMBIN TIME INR W/O COUMon 01-27-2024 Interpretation and review of laboratory results Abnormal [facility] Healthcare PT Coag (PPP) [Time] 22.4 s High [facility] TBH INR 2.29 [facility] Comment on above: DESIRED INR: 2.0-3.0 CONDITIONS NOT LISTED BELOW 2.5-3.5 FOR PROSTHETIC HEART VALVE REPLACEMENT 2.5-3.5 RECURRENT [facility]ROMBOSIS [facility] PROTHROMBIN TIME INR W/O COUMon 12-16-2023 Interpretation and review of laboratory results Abnormal [facility] Healthcare PT Coag (PPP) [Time] 29.3 s High [facility] TB INR 3.09 [facility] Comment on above: DESIRED INR: 2.0-3.0 CONDITIONS NOT LISTED BELOW 2.5-3.5 FOR PROSTHETIC HEART VALVE REPLACEMENT 2.5-3.5 RECURRENT [facility]ROMBOSIS [facility] PROTHROMBIN TIME INR W/O COUMon 11-05-2023 Interpretation and review of laboratory results Abnormal [facility] Healthcare PT Coag (PPP) [Time] 26.3 s High [facility] TB INR 2.74 [facility] Comment on above: DESIRED INR: 2.0-3.0 CONDITIONS NOT LISTED BELOW 2.5-3.5 FOR PROSTHETIC HEART VALVE REPLACEMENT 2.5-3.5 RECURRENT THROMBOSIS [facility] ECG 12 leadon 09-30-2023 [facility] XR lumbar spine 6V w bending on 09-18-2023 XR lumbar spine 6V w bending [facility] [address] [place] [id number] XRay Report Signed Patient: Bill Allen MR#: [id number] [birth year] : 1950 Acct:[id number] Age/Sex: 73 / M ADM Date: 09/18/23 Loc: XD Room: Type: [facility] CLI Attending Dr: Izabela Blackburn MD Copies [...] Encinas Jr., D.OChaitanya09/18/2023 3:18 PM Dictation Location: [place] [address] Transcribed By: [facility] 09/18/23 1518 Dictated By: Guille Encinas Jr DO 09/18/23 1517 Signed By: 09/18/23 1518 Normal [facility] MR lumbar spine wo conon MR lumbar spine wo con [facility] [place] [address] [place] [address] MRI Report Signed Patient: Bill Allen MR#: [id number] [birth year] : 1950 Acct:[id number] Age/Sex: 72 / M ADM Date: 07/23/23 Loc: MR Room: Type: [facility] CLI Attending Dr: Stanley Gregory II, MD [...] 3:18 PM Dictation Location: RADIO-PC-14 Transcribed By: [facility] 07/23/23 1518 Dictated By: Leland Murillo II, MD 07/23/23 151 Signed By: 07/23/23 151 Normal [facility] XR hip BI w [id number] 07-15-19 XR hip BI w [id number] [facility] [address] [place] [address] XRay Report Signed Patient: Bill Allen MR#: [id number] [birth year] : 1950 Acct:[id number] Age/Sex: 72 / M ADM Date: 07/15/23 Loc: [facility] Room: Type: [facility] Attending Dr: Stanley Gregory II, MD [...] 10:09 AM Dictation Location: RADIO-PC-12 Transcribed By: [facility] 07/15/23 1009 Dictated By: Irving Saldivar DO 07/15/23 1008 Signed By: 07/15/23 1009 Normal [facility] XR lumbar spine AP/LAT/FLX/E XTon 07-15-2023 XR lumbar spine AP/LAT/FLX/EXT [facility] [address] [place] [address] XRay Report Signed Patient: Bill Allen MR#: [id number] [birth year] : 1950 Acct:[id number] Age/Sex: 72 / M ADM Date: 07/15/23 Loc: [facility] Room: Type: [facility] Attending Dr: Stanley Gregory II, MD [...] Vicky Hill M.D.07/15/2023 1:59 PM Dictation Location: [place] [address] Transcribed By: [facility] 07/15/23 1359 Dictated By: Vicky Hill MD 07/15/23 1357 Signed By: 07/15/23 1359 Normal [facility] PROTIMEon 07-17-2022 INR Coag (PPP) [Relative time] 2.75 {INR} Normal [facility] Comment on above: Performed By: #### P T #### [facility] [address] [address] [address] Roya Martin INR GUIDELINES SEE BELOW Normal [facility] Comment on above: Result Comment: ZANDER RED INR: 2.0 - 3.0 CONDITIONS NOT LISTED BELOW 2.5 - 3.5 FOR PROSTHETIC HEART VALVE REPLACEMENT 2.5 - 3.5 RECURRENT THROMBOSIS Performed By: #### P T #### [facility] [address] [place] [address] Dr. Roya Martin PT Coag (PPP) [Time] 27.5 s Critically high 9.0-11.6 [facility] Comment on above: Performed By: #### P T #### [facility] [address] [place] [address] Dr. Roya Martin PROTIMEon 06-04-2022 INR Coag (PPP) [Relative time] 2.97 {INR} Normal [facility] Comment on above: Performed By: #### P T #### [facility] [address] [place] [address] Dr. Roya Martin INR GUIDELINES SEE BELOW Normal [facility] Comment on above: Result Comment: ZANDER RED INR: 2.0 - 3.0 CONDITIONS NOT LISTED BELOW 2.5 - 3.5 FOR PROSTHETIC HEART VALVE REPLACEMENT 2.5 - 3.5 RECURRENT THROMBOSIS Performed By: #### P T #### [facility] [address] [place] [address] Dr. Roya Martin PT Coag (PPP) [Time] 29.6 s Critically high 9.0-11.6 [facility] Comment on above: Performed By: #### P T #### [facility] [address] [place] [address] Dr. Roya Martin PROTIMEon 04-03-2022 INR Coag (PPP) [Relative time] 3.40 {INR} Normal [facility] Comment on above: Performed By: #### P T #### [facility] [address] [place] [address] Dr. Roya Martin INR GUIDELINES SEE BELOW Normal [facility] Comment on above: Result Comment: ZANDER RED INR: 2.0 - 3.0 CONDITIONS NOT LISTED BELOW 2.5 - 3.5 FOR PROSTHETIC HEART VALVE REPLACEMENT 2.5 - 3.5 RECURRENT THROMBOSIS Performed By: #### P T #### [facility] [address] [address] [address] Roya Martin PT Coag (PPP) [Time] 33.6 s Critically high 9.0-11.6 [facility] Comment on above: Performed By: #### P T #### [facility] [address] [address] [address] Roya Martin PROTIMEon 01-06-2022 INR Coag (PPP) [Relative time] 2.45 {INR} Normal [facility] Comment on above: Performed By: #### P T #### [facility] [address] [address] [address] Roya Martin INR GUIDELINES SEE BELOW Normal [facility] Comment on above: Result Comment: ZANDER RED INR: 2.0 - 3.0 CONDITIONS NOT LISTED BELOW 2.5 - 3.5 FOR PROSTHETIC HEART VALVE REPLACEMENT 2.5 - 3.5 RECURRENT THROMBOSIS Performed By: #### P T #### [facility] [address] [address] [address] Roya Martin PT Coag (PPP) [Time] 25.0 s Critically high 9.0-11.6 [facility] Comment on above: Performed By: #### P T #### [facility] [address] CHEST HI RESOLUTIONon [...] KELY TAYLOR Date: 2021-11-27 08:56 Normal [facility] HEMOGLOBINon 11-27-2021 Hemoglobin (Bld) [Mass/Vol] 15.4 g/dL Normal 14.0-18.0 [facility] Comment on above: Performed By: #### H GB #### [facility] [address] [place] [address] Dr. Roya Martin PROTIMEon 11-14-2021 INR Coag (PPP) [Relative time] 2.28 {INR} Normal [facility] Comment on above: Performed By: #### P T #### [facility] [address] [place] [address] Dr. Roya Martin INR GUIDELINES SEE BELOW Normal [facility] Comment on above: Result Comment: ZANDER RED INR: 2.0 - 3.0 CONDITIONS NOT LISTED BELOW 2.5 - 3.5 FOR PROSTHETIC HEART VALVE REPLACEMENT 2.5 - 3.5 RECURRENT THROMBOSIS Performed By: #### P T #### [facility] [address] [place] [address] Dr. Roya Martin PT Coag (PPP) [Time] 23.3 s Critically high 9.0-11.6 [facility] Comment on above: Performed By: #### P T #### [facility] [address] [place] [address] Dr. Roya Martin PROTIMEon 09-09-2021 INR Coag (PPP) [Relative time] 2.70 {INR} Normal [facility] Comment on above: Performed By: #### P T #### [facility] [address] [place] [address] Dr. Roya Martin INR GUIDELINES SEE BELOW Normal [facility] Comment on above: Result Comment: ZANDER RED INR: 2.0 - 3.0 CONDITIONS NOT LISTED BELOW 2.5 - 3.5 FOR PROSTHETIC HEART VALVE REPLACEMENT 2.5 - 3.5 RECURRENT THROMBOSIS Performed By: #### P T #### [facility] [address] [address] [address] Roya Martin PT Coag (PPP) [Time] 27.3 s Critically high 9.0-11.6 [facility] Comment on above: Performed By: #### P T #### [facility] [address] [address] [address] Roya BYRDOVon 04-16-2017 CNOV Office Visit (CARDFT) BILL ALLEN ([id number]) 1950 MDate Time Provider Department04/16/17 11:30 AM CHRABEL ZUÑIGA During your visit today, we recorded the following information about you: Pulse Respiration Blood pressure Weight 72/minute 18/minute 125/74 99.3 kg Height 1.778 Aurea Zuñiga MD 04/16/2017 11:49 AM [facility] Department of Cardiovascular MedicineOUTPATIENT VISIT DATE04/16/17OUTPATIENT VISIT TYPEEstablishedPRIMARY CARE PHYSICIAN:Juliet Bolanos, [id number] [facility] [address]Xvmxt: [phone]: [phone] COMPLAINT:PalpitationsHI STORY OF PRESENT ILLNESS: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 [...] Used- Alcohol use NoNo family history on file.NoneALLERGIES:ALLER GIESNo Known AllergiesMEDICATIONS:hyd roCHLOROthiazide (HYDRODIURIL, ESIDRIX) 25 mg tablet Take by [...] Pain, stiffnessRESPIRATORY: Negative for: Blood in sputum, wheezing.GASTROINTESTINA L: Negative for: Trouble swallowing, blood in stoolMUSCULOSKELETAL: Negative for: Joint stiffness and painNEUROLOGIC: Negative for: Numbness, tremorsPSYCHIATRIC: Negative for: Anxiety, depressionSKIN: Negative for: Rashes, itchingHEMATOLOGICAL/LYM PHATIC: Negative for: Easy bruising, easy bleeding, painfullymph nodesI personally interviewed, confirmed and edited the above information ifobtained by others.PHYSICAL EXAMINATION:BP 125/74 Pulse 72 Resp 18 Ht 177.8 cm (5' 10ANDquot;) Wt 99.3 kg (219lb) SpO2 98% BMI 31.42 kg/d3Cyeyhau: Well appearing, in no acute distress. ObeseNeuro: [...] pulses in distal lower extremities. Absent lower extremityedemaCARDIOVASC ULAR MEDICINE TESTING:Electrocardiogra m: 04/16/16 NormalEchocardiogram: 01/08/16 [place], stage 1 diastology, no [id number] day monitor 02/14/16inus, rare PACs, frequent PVCs corresponding to palpitationsI have personally reviewed the above Cardiovascular Medicine Testing.IMPRESSION/PLAN: Bill Allen is a 66 year old male [...] or concerns.Charbel Zuñiga M.D.Joel NapierDepartment of Cardiovascular MedicineUniversity Hospitals Geneva Medical Centerrt and Vascular Institute[address] [address]Qurlhv: [phone] Referring Provider: JULIET BOLANOS [[id number]]Allergies As of Date: 04/16/2017(No Known Allergies)Date Reviewed: [...] RN 04/16/2017 11:29 AM >> KELLY HUITRON [facility] Apr 16, 2017 11:29 AM LISINOPRIL 10 MG TABLET >> Jayden Kolb RN 04/16/2017 11:29 AM >> KELLY HUITRON Adriana Apr 16, 2017 11:29 AM Received from: External Pharmacy >> Jayden Kolb RN 04/16/2017 11:29 AM >> KELLY HUITRON [facility] Apr 16, 2017 11:29 AMProblem List As Of Date: 04/16/2017(None)Medicati ons Discontinued During This Encounter losartan-hydrochlorothia zide (HYZAAR* 90 t* 3 04/16/2016 04/16/2017 Route: ORAL Sig: Take 1 tablet by mouth once daily. Disc: Erroneous entryDisposition: Return if symptoms worsen or fail to improve.Follow-up and Disposition History RecordedEncounter Number: [id number] Status:Closed by CHARBEL ZUÑIGA MD on 04/16/[address] [facility] PROGRESSon 04-13-2017 PROGRESS HNO ID: [id number]: Charbel ZuñigaSer: (none)Author Type: PhysicianType: Progress NotesFiled: 04/16/2017 11:49 AMNote Text:[facility] InstituteVern[facility] and Mar[facility] Napier Department of Cardiovascular MedicineOUTPATIENT VISIT DATE04/16/17OUTPATIENT VISIT TYPEEstablishedPRBAPTIST MEDICAL [facility] CARE PHYSICIAN:Juliet Bolanos, [id number] [facility] [address]Dbbrj: [phone]: [phone] COMPLAINT:PalpitationsHI STORY OF PRESENT ILLNESS: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 History includes frequent PVCs, DVT, renalartery stenosis. He remains very physically active and mostly compliantwith a lean diet. No palpitations and blood pressure has beenwell-controlledDenie s chest pain, shortness of breath, orthopnea, cough, [...] Used- Alcohol use NoNo family history on file.NoneALLERGIES:ALLER GIESNo Known AllergiesMEDICATIONS:hyd roCHLOROthiazide (HYDRODIURIL, ESIDRIX) 25 mg tablet Take by [...] Pain, stiffnessRESPIRATORY: Negative for: Blood in sputum, wheezing.GASTROINTESTINA L: Negative for: Trouble swallowing, blood in stoolMUSCULOSKELETAL: Negative for: Joint stiffness and painNEUROLOGIC: Negative for: Numbness, tremorsPSYCHIATRIC: Negative for: Anxiety, depressionSKIN: Negative for: Rashes, itchingHEMATOLOGICAL/LYM PHATIC: Negative for: Easy bruising, easy bleeding,painful lymph nodesI personally interviewed, confirmed and edited the above information ifobtained by others.PHYSICAL EXAMINATION:BP 125/74 Pulse 72 Resp 18 Ht 177.8 cm (5' 10 ) Wt 99.3 kg (219lb) SpO2 98% BMI 31.42 kg/r1Nxvuebb: Well appearing, in no acute distress. ObeseNeuro: Oriented to person, place and time, alert, cooperative.Eyes: Extra ocular movements intact, pupils react to lightNeck: No jugular venous distention, no palpable thyromegaly.Heart: Regular rhythm, S1, S2 normal, no S3, no S4. No murmur.Lungs: Clear to auscultation bilaterally. Good respiratory effort.Abdomen: Soft, nontender, bowel sounds normal, no palpablehepatosplenomega lySkin: No clubbing, no cyanosis.Extremities: Normal pulses in distal lower extremities. Absent lowerextremity edemaCARDIOVASCULAR MEDICINE TESTING:Electrocardiogra m: 04/16/16 NormalEchocardiogram: 01/08/16 [place] 55, stage 1 diastology, no [id number] day monitor 02/14/16inus, rare PACs, frequent PVCs corresponding to palpitationsI have personally reviewed the above Cardiovascular Medicine Testing.IMPRESSION/PLAN: Bill Allen is a 66 year old male [...] or concerns.Charbel Zuñiga M.D.Joel Childs of Cardiovascular MedicineUniversity Hospitals Geneva Medical Centerrt and Vascular InstituteGregory Ville [address] Dillon HughesTallul[place], [place] [address]Gzqczt: [phone] [facility] Vital Signs Date Time Vital Sign Value Performing Clinician Facility 05-12-2024 08:52-0500 Body height 175.3 cm Colten France DO Work Phone: [facility] 05-12-2024 08:52-0500 Body mass index (BMI) [Ratio] 32.49 kg/m2 Colten France DO Work Phone: [facility] 05-12-2024 08:52-0500 Body weight 99.79 kg Colten France DO Work Phone: [facility] 05-10-2024 16:17-0500 Diastolic blood pressure 85 mm[Hg] Arjun Chung MD Work Phone: [facility] 05-10-2024 16:17-0500 Systolic blood pressure 135 mm[Hg] Arjun Chung MD Work Phone: [facility] 04-11-2024 13:15-0500 Body temperature 97.16 [degF] Micaela IREL[facility] 04-11-2024 13:15-0500 Diastolic blood pressure 86 mm[Hg] Micaela IRELAND [facility] 04-11-2024 13:15-0500 Heart rate 84 /min Micaela IRELAND [facility] 04-11-2024 13:15-0500 Systolic blood pressure 134 mm[Hg] Micaela IRELAND [facility] 03-31-2024 09:35-0500 Body height 175.3 cm Dayron Cervantes MD Work Phone: [facility] 03-31-2024 09:35-0500 Body mass index (BMI) [Ratio] 32.49 kg/m2 Dayron Cervantes MD Work Phone: [facility] 03-31-2024 09:35-0500 Body temperature 97.3 [degF] Dayron Cervantes MD Work Phone: [facility] 03-31-2024 09:35-0500 Body weight 99.79 kg Dayron Cervantes MD Work Phone: [facility] 03-31-2024 09:35-0500 Diastolic blood pressure 62 mm[Hg] Dayron Cervantes MD Work Phone: [facility] 03-31-2024 09:35-0500 Heart rate 93 /min Dayron Cervantes MD Work Phone: [facility] 03-31-2024 09:35-0500 Respiratory rate 20 /min Dayron Cervantes MD Work Phone: [facility] 03-31-2024 09:35-0500 SaO2% (BldA) [Mass fraction] 97 % Dayron Cervantes MD Work Phone: [facility] 03-31-2024 09:35-0500 Systolic blood pressure 146 mm[Hg] Dayron Cervantes MD Work Phone: [facility] 02-24-2024 09:01-0500 Body height 175.3 cm Dayron Cervantes MD Work Phone: [facility] 02-24-2024 09:01-0500 Body mass index (BMI) [Ratio] 33.67 kg/m2 Dayron Cervantes MD Work Phone: [facility] 02-24-2024 09:01-0500 Body temperature 97.11 [degF] Dayron Cervantes MD Work Phone: [facility] 02-24-2024 09:01-0500 Body weight 103.42 kg Dayron Cervantes MD Work Phone: [facility] 02-24-2024 09:01-0500 Diastolic blood pressure 62 mm[Hg] Dayron Cervantes MD Work Phone: [facility] 02-24-2024 09:01-0500 Heart rate 78 /min Dayron Cervantes MD Work Phone: [facility] 02-24-2024 09:01-0500 Respiratory rate 20 /min Dayron Cervantes MD Work Phone: [facility] 02-24-2024 09:01-0500 SaO2% (BldA) [Mass fraction] 95 % Dayron Cervantes MD Work Phone: [facility] 02-24-2024 09:01-0500 Systolic blood pressure 142 mm[Hg] Dayron Cervantes MD Work Phone: [facility] 12-16-2023 10:18-0400 Body height 175.3 cm Jose Yen DPM Work Phone: [facility] 12-16-2023 10:18-0400 Body mass index (BMI) [Ratio] 33.23 kg/m2 Jose Yen DPM Work Phone: [facility] 12-16-2023 10:18-0400 Body weight 102.06 kg Jose Yen DPM Work Phone: [facility] 09-29-2023 10:14-0400 Body height 175.3 cm [facility] 09-29-2023 10:14-0400 Body mass index (BMI) [Ratio] 32.93 kg/m2 [facility] 09-29-2023 10:14-0400 Body weight 101.15 kg [facility] 1 [facility] 07-15-2023 09:14-0400 Body height 175.26 cm MD Dayron Cervantes Work Phone: [facility] 07-15-2023 09:14-0400 Body mass index (BMI) [Ratio] 33.5 kg/m2 MD Dayron Cervantes Work Phone: [facility] 07-15-2023 09:14-0400 Body weight 103.02 kg MD Dayron Cervantes Work Phone: [facility] Encounters Encounter Date Encounter Type Care Provider Facility Start: 05-16-2024 ambulatory Micaela Albakelsey ty:CD:[id number] Start: 05-13-2024 End: 05-13-2024 External Result Encounter Colten France DO Work Phone: [facility] External Department Unsolicited Start: 05-13-2024 End: 05-13-2024 External Result Encounter Colten France DO Work Phone: [facility] External Department Unsolicited Start: 05-13-2024 End: 05-13-2024 Patient encounter procedure Dayron Cervantes MD Work Phone: [facility] Work Phone: Start: 05-13-2024 End: 05-13-2024 ambulatory Dayron Cervantes MD Work Phone: [facility] Work Phone: Start: 05-12-2024 End: 05-12-2024 Bamboo flowsheet Colten France DO Work Phone: [facility] Start: 05-12-2024 End: 05-12-2024 Bamboo flowsheet Colten France DO Work Phone: [facility] Start: 05-12-2024 End: 05-12-2024 Office outpatient new 45 minutes Colten France DO Work Phone: [facility] Comment on above: Mohs defect of foreh ead (Primary Dx) Start: 05-12-2024 End: 05-12-2024 ambulatory COLTEN FRANCE Not Available Start: 05-10-2024 End: 05-10-2024 Patient encounter procedure Arjun Chung MD Work Phone: [facility] Comment on above: Basal cell carcinoma (BCC) of left denominational region (Primary Dx); Skin neoplasm Start: 05-10-2024 End: 05-10-2024 ambulatory ARJUN CHUNG Not Available Start: 04-19-2024 End: 02-04-2025 Clinisync Result Encounter Generic External Data Provider [facility] External Department Unsolicited Start: 04-19-2024 End: 04-19-2024 Clinisync Result Encounter Generic External Data Provider [facility] External Department Unsolicited Start: 04-11-2024 End: 04-11-2024 ambulatory Micaela IRELAND Facility:[facility] Start: 04-11-2024 End: 04-11-2024 Lab Drop off Micaela IRELAND [facility] Start: 04-11-2024 End: 04-11-2024 ambulatory DAYRON CERVANTES Facility:[facility] Start: 04-11-2024 End: 04-11-2024 Patient encounter procedure Micaela IRELAND [facility] Start: 03-31-2024 End: 03-31-2024 Bamboo flowsheet Dayron Cervantes MD Work Phone: [facility] Start: 03-31-2024 End: 04-04-2024 Bamboo flowsheet Dayron Cervantes MD Work Phone: [facility] Start: 03-31-2024 End: 04-04-2024 Clinisync Result Encounter Daryon Cervantes MD Work Phone: [facility] External Department Unsolicited Start: 03-31-2024 ambulatory DAYRON CERVANTES Facility:[facility] Start: 03-31-2024 End: 03-31-2024 Office outpatient visit 15 minutes Dayron Cervantes MD Work Phone: [facility] Comment on above: Gross hematuria (Jelly clare Dx); Prediabetes Start: 03-31-2024 End: 03-31-2024 ambulatory DAYRON CERVANTES Not Available Start: 03-19-2024 End: 03-19-2024 ambulatory Dayron Cervantes MD Work Phone: [facility] Work Phone: Start: 03-19-2024 End: 03-19-2024 Departed Referred Dayron Cervantes MD Work Phone: [facility] Start: 02-24-2024 End: 02-24-2024 Bamboo flowsheet Dayron Cervantes MD Work Phone: [facility] Start: 02-24-2024 End: 02-24-2024 Bamboo flowsheet Dayron Cervantes MD Work Phone: [facility] Start: 02-24-2024 End: 02-24-2024 Patient encounter procedure Ana Osullivan PA Work Phone: [facility] Comment on above: Neoplasm of unspecif ied behavior of bone, soft tissue, and skin (Primary Dx) Start: 02-24-2024 End: 02-24-2024 ambulatory [facility] Not Available Start: 02-24-2024 End: 02-24-2024 Office [...] Unsolicited Start: 02-09-2024 End: 02-09-2024 Bamboo flowsheet Ana [facility] PA Work Phone: [facility] Start: 02-09-2024 End: 02-09-2024 Bamboo flowsheet Ana [facility] PA Work Phone: [facility] Start: 02-09-2024 End: 02-09-2024 Office outpatient new 30 minutes Ana Abran PA Work Phone: [facility] Comment on above: Neoplasm of skin (Pr imary Dx); Seborrheic keratosis; Actinic keratosis Start: 02-09-2024 End: 02-09-2024 ambulatory ANAPaul OSULLIVAN Not Available Start: 01-27-2024 End: 01-27-2024 Clinisync Result Encounter Dayron Cervantes MD Work Phone: [facility] External Department Unsolicited Start: 01-27-2024 End: 01-27-2024 Clinisync Result Encounter Dayron Cervantes MD Work Phone: [facility] External Department Unsolicited Start: 12-16-2023 End: 12-16-2023 Bamboo flowsheet Jose S Rusher DPM Work Phone: [facility] Start: 12-16-2023 End: 12-16-2023 Bamboo flowsheet Jose S Rusher DPM Work Phone: [facility] Start: 12-16-2023 End: 12-16-2023 Clinisync Result Encounter Dayron Cervantes MD Work Phone: [facility] External Department Unsolicited Start: 12-16-2023 End: 12-16-2023 Office outpatient new 30 minutes Jose S Rusher DPM Work Phone: [facility] Comment on above: Hammer toe of [...] End: 10-20-2023 Evaluation and management of inpatient VALENTINEJennfier GOMEZ [facility] Start: 10-20-2023 End: 10-20-2023 Evaluation and management of inpatient JOANNA FRAUSTO [facility] Start: 10-16-2023 End: 10-16-2023 ambulatory STACI OMER Not Available Start: 10-01-2023 End: 10-01-2023 ambulatory STACI OMER Not Available Start: 09-29-2023 End: 09-29-2023 Patient encounter procedure [facility] Pre-Admission Testing 1 [facility] - Pre Admit Comment on above: Preop examination (P rimary Dx); Anticoagulated Start: 09-29-2023 End: 09-29-2023 Preprocedural examination done Pm 1 [facility] Start: 09-29-2023 End: 09-29-2023 ambulatory KELY GARZA [facility] Start: 09-29-2023 Encounter for other preprocedural examination KELY GARZA [facility] Start: 09-18-2023 End: 09-18-2023 Patient encounter procedure MD Dayron Cervantes Work Phone: [facility] [place] Work Phone: Start: 09-18-2023 End: 09-18-2023 ambulatory MD Dayron Cervantes Work Phone: [facility] Work Phone: Start: 09-04-2023 End: 09-04-2023 ambulatory DAYRON CERVANTES Not Available Start: 07-23-2023 End: 07-23-2023 Patient encounter procedure MD Dayron Cervantes Work Phone: [facility] [place] Work Phone: Start: 07-23-2023 End: 07-23-2023 ambulatory MD Dayron Cervantes Work Phone: [facility] Work Phone: Start: 07-15-2023 End: 07-15-2023 ambulatory Stanley Gregory II Facility:[facility] Start: 07-15-2023 End: 07-15-2023 Patient encounter procedure MD Dayron Cervantes Work Phone: [facility] Work Phone: Start: 07-17-2022 End: 07-18-2022 [...] Start: 04-16-2017 End: 04-22-2017 Ambulatory CHARBEL ZUÑIGA [facility] Procedures Date Procedure Procedure Detail Performing Clinician Start: 05-13-2024 Basic metabolic pane l calcium total Colten France DO Work Phone: Start: 05-13-2024 Complete blood count with white cell differential, automated Colten France DO Work Phone: Start: 05-10-2024 MOHS SURGERY Arjun nick MD Work Phone: Start: 04-19-2024 CT ABDOMEN PELVIS WO/W CON Generic External Data Provider Start: 03-31-2024 Urnls dip stick/tabl et rgnt non-auto w/o micrscp Dayron Cervantes MD Work Phone: Start: 03-31-2024 Hemoglobin glycosyla sneha a1c Dayron Cervantes MD Work Phone: Start: 03-31-2024 Bacteria identified in Urine by Culture Dayron Cervantes MD Work Phone: Start: 03-19-2024 Urine culture Dayron julien MD Work Phone: Start: 02-24-2024 SKIN / NAIL BIOPSY Serena IRENE Work Phone: Start: 02-23-2024 [facility] PROTHROMBIN T IVAN INR W/O COUM Dayron Cervantes MD Work Phone: Start: 01-27-2024 [facility] PROTHROMBIN T IVAN INR W/O COUM Dayron Cervantes MD Work Phone: Start: 12-16-2023 [facility] PROTHROMBIN T IVAN INR W/O COUM Dayron Cervantes MD Work Phone: Start: 11-05-2023 [facility] PROTHROMBIN T IVAN INR W/O COUM Dayron Cervantes MD Work [...] Treatment Date Care Activity Detail Author Start: 09-17-2028 DTaP,Tdap and Td Vaccines (2 - Td or Tdap) DTaP,Tdap and Td Vaccines (2 - Td or Tdap) [facility] Start: 09-15-2026 Screening for malignant neoplasm of colon [facility] Start: 06-06-2024 End: 06-06-2024 Patient encounter procedure 06/06/2024 1:30 PM EDT Office Visit [facility] [address] [place] [address] Meena Moss MD [address] [place] [address] [facility] Start: 05-26-2024 End: 05-26-2024 Patient encounter procedure 05/26/2024 10:30 AM EDT Office Visit [facility] [address] [place] [phone] Dayron Cervantes MD [address] [place] [phone] [facility] Start: 05-25-2024 End: 05-25-2024 Patient encounter procedure 05/25/2024 2:15 PM EDT Office Visit [facility] [place] [address] [place] [address] ToñaramaMichael W, DO [address] [place] [address] [facility] [place] Start: 05-18-2024 End: 05-18-2024 Patient encounter procedure 05/18/2024 9:30 AM EST Office Visit [facility] [address] [place] [phone] Daryon Cervantes MD [address] [place] [phone] [facility] Start: 05-12-2024 End: 05-12-2024 Patient encounter procedure [facility] [place] Comment on above: Arrived Start: 05-10-2024 End: 05-10-2024 Patient encounter procedure 05/10/2024 1:30 PM EST Office Visit [facility] [address] [place] [address] Arjun Chung MD [address] [place] [address] [facility] [place] [facility] Start: 03-31-2024 End: 03-31-2024 Patient encounter procedure 03/31/2024 9:30 AM EST Office Visit [facility] [address] [place] [address] Dayron Cervantes MD [address] [place] [phone] Arrived [facility] Comment on above: Arrived Start: 03-19-2024 Bacteria identified in Urine by Culture Urine Culture [facility] Start: 03-19-2024 Urine culture [facility] Start: 02-24-2024 End: 02-24-2024 Patient encounter procedure [facility] Comment on above: Arrived Start: 02-09-2024 End: 02-09-2024 Patient encounter procedure 02/09/2024 2:00 PM EST Office Visit [facility] [address] [place] [address] Ana Osullivan PA [address] [place] [address] [facility] Start: 12-16-2023 End: 12-16-2023 Patient encounter procedure [facility] Comment on above: Arrived Start: 11-25-2023 End: 11-25-2023 ambulatory [facility] Comment on above: Arrived Start: 11-19-2023 End: 11-19-2023 ambulatory 11/19/2023 10:30 AM EDT Treatment [facility] [address] [facility] [address] [place] [address] Staci Omer, PT [facility] Start: 11-15-2023 Influenza vaccination [facility] Start: 11-11-2023 End: 11-11-2023 ambulatory 11/11/2023 9:30 AM EDT Treatment [facility] [address] [facility] [address] [place] [address] Staci Omer, PT [facility] Start: 10-20-2023 End: 10-20-2023 Admission to same day surgery center 10/20/2023 3:00 PM EDT - 10/20/2023 4:00 PM EDT Surgery [facility] [address] [place] [phone] Joanna Frausto MD [address] [place] [address] BLEPHAROPLASTY [79411 (CPT )] [facility] Comment on above: BLEPHAROPLASTY [88145 (CPT )] Start: 10-20-2023 End: 10-20-2023 Blepharoplasty upper eyelid BLEPHAROPLASTY bilateral ptosis 10/20/2023 3:00 PM EDT [facility] Start: 10-20-2023 Subsequent hospital visit by physician 10/20/2023 3:00 PM EDT Hospital Encounter [facility] Surgery [address] [place] [address] Joanna Frausto MD [address] [place], [place] [id number] [facility] Start: 10-20-2023 End: 09-28-2024 Protime & INR Protime & INR Lab Routine Preop examination Anticoagulated Expected: 10/20/2023, Expires: 09/28/2024 [facility] Work Phone: Comment on above: Expected: 10/20/2023, Expires: Start: 04-27-2023 COVID-19 Vaccine () COVID-19 Vaccine () [facility] Start: 08-15-2015 Fall Risk Screening Fall Risk Screening [facility] Start: 1968 Adult BMI Screening Adult BMI Screening [facility] Start: 1962 Depression Screening Depression Screening [facility] Start: 1962 Tobacco Screening Tobacco Screening [facility] Start: 1950 Medicare Annual Wellness (AWV) Medicare Annual Wellness (AWV) [facility] Start: 1950 Medicare Annual Wellness Visit Medicare Annual Wellness Visit [facility] Start: 1950 Screening for malignant neoplasm of colon [facility] Dermatopathology exam Dermatopat hology exam Pathology and Cytology Timed Neoplasm of unspecified behavior of bone, soft tissue, and skin Release Upon Ordering for 1 Occurrences starting 02/24/2024 [facility] [employer] Work Phone: Comment on above: Release Upon Ordering for 1 Occurrences starting 02/24/2024 Immunizations Immunization Date Immunization Notes Care Provider Fa cili 12-30-2023 SARS-COV-2 (COVID-19 ) vaccine, mRNA, spike protein, LNP, PF, patricia-sucrose, 30 mcg/0.3 mL Colten France DO Work Phone: [facility] 12-30-2023 Seasonal trivalent influenza vaccine, adjuvanted, preservative free Colten France DO Work Phone: [facility] 09-14-2023 zoster vaccine recombinant Colten France DO Work Phone: [facility] 06-08-2023 zoster vaccine recombinant Colten France DO Work Phone: [facility] 01-13-2023 Pneumococcal Conjuga te PCV 20 Colten France DO Work Phone: [facility] 01-13-2023 RSV, recombinant, protein subunit RSVpreF, adjuvant reconstitu, 120mcg/0.5mL, PF (Arexvy) Colten France DO Work Phone: [facility] 12-25-2022 COVID-19 (PFIZER) 12Y and older Dayron Cervantes MD Work Phone: [facility] 12-25-2022 Influenza, Seasonal, Quadrivalent, Adjuvanted Colten France DO Work Phone: [facility] 12-25-2022 influenza virus vaccine, unspecified formulation Pmh 1 [facility] 12-01-2022 pneumococcal conjuga te 20-valent (Prevnar 20) 0.5 ML vaccine Staci Omer PT [facility] 12-23-2021 Influenza, High-dose Seasonal, Quadrivalent, Preservative Free Colten Borregoeulalio DO Work Phone: [facility] 12-02-2021 COVID-19 mRNA Bivale nt Booster (Moderna) Dayron Cervantes MD Work Phone: [facility] 06-24-2021 COVID-19 mRNA-1273 (Moderna) Dayron Cervantes MD Work Phone: [facility] 01-05-2021 COVID-19 mRNA-1273 (Moderna) Dayron Cervantes MD Work Phone: [facility] 05-25-2020 COVID-19 mRNA-1273 (Moderna) Dayron Cervantes MD Work Phone: [facility] 04-27-2020 COVID-19 mRNA-1273 (Moderna) Dayron Ceravntes MD Work Phone: [facility] 09-17-2018 tetanus and diphther ia toxoids, adsorbed, preservative free, for adult use (5 Lf of tetanus toxoid and 2 Lf of diphtheria toxoid) Colten France DO Work Phone: [facility] 02-23-2017 influenza, high dose seasonal, preservative-free Colten France DO Work Phone: [facility] 02-23-2017 pneumococcal conjuga te vaccine, 13 valent Colten David DO Work Phone: [facility] 01-15-2016 influenza, seasonal, injectable Colten France DO Work Phone: [facility] 01-10-2016 influenza virus vaccine, unspecified formulation Colten David DO Work Phone: [facility] 11-15-2015 influenza, injectabl e, quadrivalent, preservative free Colten David DO Work Phone: [facility] Payers Date Payer Category Payer Self-pay 2021 Private Health Insurance [employer] [id number] 2021 Unknown [id number]. [id number] 2015 Medicare [id number] [id number]. [id number] 1959 Medicare [id number] 1959 Unknown [id number] 1950 Unknown [id number] 2.16.840.1.061208.3.579.2. 593 1950 Unknown [id number] 2.16.840.1.731837.3.579.2. 593 1950 Unknown [id number] 2.16.840.1.104535.3.579.2. 593 1950 Unknown [id number] 2.16.840.1.658090.3.579.2. 593 1950 Unknown [id number] 2.16.840.1.698044.3.579.2. 593 1950 Unknown [id number] 2.16.840.1.687386.3.579.2. 593 1950 Unknown [id number] 2.16.840.1.813601.3.579.2. 593 1950 Unknown [id number] 2.16.840.1.378343.3.579.2. 1286 1950 Unknown [id number] 2.16.840.1.191017.3.579.2. 1286 1950 Unknown [id number] 2.16.840.1.689721.3.579.2. 1286 1950 Unknown [id number] 2.16.840.1.136092.3.579.2. 1286 1950 Unknown [id number] 2.16.840.1.625155.3.579.2. 1286 1950 Unknown [id number] 2.16.840.1.881228.3.579.2. 727 1950 Unknown [id number] 2.16.840.1.021981.3.579.2. 727 1950 Unknown [id number] 2.16.840.1.000417.3.579.2. 1258 1950 Unknown [id number] 2.16.840.1.786196.3.579.2. 1258 1950 Unknown [id number] 2.16.840.1.270331.3.579.2. 1258 1950 Unknown [id number] 2.16.840.1.209149.3.579.2. 1258 1950 Unknown [id number] 2.16.840.1.521736.3.579.2. 1258 1950 Unknown [id number] 2.16.840.1.984412.3.579.2. 1258 1950 Unknown [id number] 2.16.840.1.991130.3.579.2. 1258 1950 Unknown [id number] 2.16.840.1.417723.3.579.2. 1258 1950 Unknown [id number] 2.16.840.1.793408.3.579.2. 1258 1950 Unknown [id number] 2.16.840.1.301388.3.579.2. 1258 1950 Unknown [id number] 2.16.840.1.118226.3.579.2. 1258 1950 Unknown [id number] 2.16.840.1.240602.3.579.2. 1258 1950 Unknown [id number] 2.16.840.1.690408.3.579.2. 1259 Unknown [id number] 2.16.840.1.738857.3.579.2. 531 Unknown [id number] 2.16.840.1.236383.3.579.2. 531 Unknown [id number] 2.16.840.1.453727.3.579.2. 531 Unknown [id number] 2.16.840.1.021021.3.579.2. 531 Unknown [id number] 2.16.840.1.700424.3.579.2. 531 Social History Date Type Detail Facility Tobacco smoking stat us NCIS Unknown if ever smoked [facility] Work Phone: Start: 1950 Sex Assigned At Male [facility] Start: 03-04-2023 End: 05-13-2024 Tobacco smoking status NHIS Never smoked tobacco [facility] Start: 03-04-2023 End: 09-29-2023 Tobacco use and exposure Smokeless tobacco non-user [facility] Start: 12-16-2023 End: 05-12-2024 Alcoholic beverage intake Lifetime non-drinker (finding) [facility] Start: 12-16-2023 End: 05-12-2024 History of Social function [facility] Start: 12-16-2023 End: 05-12-2024 Tobacco use panel [facility] Start: 1950 Sex assigned at Not on file [facility] Tobacco smoking stat us NCIS Unknown if ever smoked [facility] Work Phone: Start: 03-20-2024 Sex Patient sex unknown (finding) [facility] Childcare Unknown [facility] Start: 08-24-2023 Gender identity Identifies as male gender (finding) [facility] Start: 08-24-2023 Sexual orientation Heterosexual (finding) [facility] Start: 05-14-2024 Sex Male (finding) [facility] Functional Status Date Assessment Result Facility 04-11-2024 Functional Status N/A [facility] Clinical Notes 09-29-2023 to 05-12-2024 Colten France DO - 05/12/2024 8:45 AM Vijay Chung MD - 05/10/2024 1:30 PM John Cervantes MD - 03/31/2024 10:30 AM John Cervantes MD - 03/31/2024 10:30 AM ESTPatient Instructions Note Date & Type Note Facility 05-12-2024 History of Present illness Narrative Subjective Patient ID: Bill Allen is a 73 y.o. male who presents for Mohs Reconstruction (New Patient : Mohs left denominational / BCC) HPI 73-year-old white male presents today for evaluation of Mohs defect of the left denominational. Patient recently underwent excision of basal cell carcinoma in this region. Presents today to discuss his options regarding repair /reconstruction Review of Systems Patient denies any fever or pain in his area. Has not had any significant decreased muscular function. Denies any change of vision. Denies any bleeding from the area of concern. The rest of his review of systems is negative. Allergies as of 05/12/2024 (No Known Allergies) Past Medical History: Diagnosis Date Arthritis Basal cell carcinoma Hypertension (CMS/HCC) Current Outpatient Medications: cephalexin (Keflex) 500 MG capsule, Take 1 capsule by mouth, bid, 10 days., Disp: 20 capsule, Rfl: 0 cholecalciferol (Vitamin D-3) 50 MCG (1999 UT) capsule, Take 2,000 Units by mouth in the morning., Disp: , Rfl: coenzyme Q-10 100 MG capsule, Take 1 capsule by mouth 1 (one) time each day at the same time, Disp: , Rfl: Ingslgklnfj-Kznafwubo-Zma C-Mn (Glucosamine 1500 Complex) capsule, Take 1 [...] mouth in the morning., Disp: , Rfl: omega-3 (FISH OIL) 300 MG capsule, Take 300 mg by mouth Daily, Disp: , Rfl: pneumococcal conjugate 20-valent (Prevnar 20) 0.5 ML vaccine, as directed Intramuscular once for 1 days, Disp: , Rfl: simvastatin (Zocor) 20 MG tablet, Take 1 tablet (20 mg) by mouth at bedtime, Disp: 90 tablet, Rfl: 3 terazosin (Hytrin) 10 MG capsule, Take 1 capsule (10 mg) by mouth at bedtime, Disp: 90 capsule, Rfl: 3 warfarin (Coumadin) 5 MG tablet, Take 1 tablet daily, Disp: 90 tablet, Rfl: 3 History reviewed. No pertinent surgical history. Social History Socioeconomic History Marital status: Spouse name: Not on file Number of children: Not on file Years of education: Not on file Highest education level: Not on file Occupational History Not on file Tobacco Use Smoking status: Never Smokeless tobacco: Never Substance and Sexual Activity Alcohol use: Never Drug use: Yes Types: Marijuana Sexual activity: Not Currently Partners: Female control/protection: Post-menopausal Other Topics Concern Not on file Social History Narrative Not on file Social Drivers of Health Financial Resource Strain: Not on file Food Insecurity: Not on file Transportation Needs: Not on file Physical Activity: Not on file Stress: Not on file Social Connections: Not on file Intimate Partner Violence: Not on file Housing Stability: Not on file Objective ENT Physical Exam General Examination: General overview: Normal, age-appropriate, no evidence of distress , overweight Head: Normocephalic, 3 x 2 cm soft tissue defect of the left forehead and denominational region. This does approximate the area of the lateral brow. No evidence of hemorrhage. Eyes: Pupils are equally round and reactive to light and accommodation, extraocular muscles are intact Ears: External ear architecture within normal limits, ear canals are patent, tympanic membranes are intact. Nose: External nose unremarkable, nares patent, septum intact, no evidence of congestion. Oral cavity: Mucosa moist, no evidence of ulcer, mass, or lesion Throat: Clear Neck/thyroid: Neck supple, full range of motion, no cervical lymphadenopathy, no evidence of thyromegaly Lymph nodes: No cervical lymphadenopathy Skin: Warm and dry, no evidence of suspicious lesions, no rash Heart: No jugular venous distention, point of maximal impulse normal Lungs: Good air movement, no audible wheezing, no shortness of breath Chest: Normal shape and expansion Abdomen: Normal, soft, nontender, nondistended Musculoskeletal: Cervical spine normal, full range of motion Extremities: No clubbing, cyanosis, or edema Peripheral pulses: 2+ radial, 2+ carotid Neurologic: Alert and oriented, cranial nerves 2-12 are grossly intact Psych: Alert and oriented, normal affect, no evidence of distress Assessment/Plan Diagnoses and all orders for this visit: Mohs defect of forehead Comments: recommend surgical debridement /skin biopsy and flap reconstruction At this time, I do recommend debridement of the wound with reconstruction utilizing flap and/or skin graft methods. All of the options, risks, and aspects are discussed in depth. The risks include but are not limited to bleeding, infection, poor wound healing, need for further surgery, nerve injury, serous disability, and documented in this encounter [facility] 05-10-2024 History of Present illness Narrative Images from the original note were not included. Mohs Surgery Location: Left denominational Date of biopsy: 02/24/2024 Diagnosis: Basal Cell Carcinoma Lesions: Location: Left ear Duration: months Quality: denies itch Associated symptoms: non-healing Treatments: none All pertinent medical history, medications, and allergies were reviewed. General Exam: alert, oriented to person, place, and time, normal affect, well appearing A focused exam completed based on patient reported problems, see below: 1. Basal cell carcinoma (BCC) of left denominational region Left Roman Catholic Waxy, erythematous plaque at the biopsy site. Mohs surgery Consent obtained: written (The rationale for Mohs as well as the risks, benefits, and alternatives. The risks of infection, scarring, bleeding, prolonged wound healing, incomplete removal, allergy to anesthesia or meds, nerve injury, and recurrence were addressed.) [place] Protocol: Procedure explained and questions answered to patient or proxy's satisfaction: Yes Test results available and properly labeled: Yes Pathology report reviewed: Yes Photo or diagram used for site identification: Yes Site/side marked: Yes Anticoagulation: Is the patient taking prescription anticoagulant and/or aspirin prescribed/recommended by a physician? Yes (Warfarin) Was the anticoagulation regimen changed prior to Mohs? No Anesthesia: Anesthesia method: local infiltration Local anesthetic: lidocaine 1% WITH epi and sodium bicarbonate Procedure Details: Biopsy accession number: [id number] Biopsy lab: [facility] Date of biopsy: 02/24/2024 Frozen section biopsy performed: Yes Specimen debulked: Yes Pre-Op diagnosis: basal cell carcinoma BCC subtype: nodular MohsAIQ Surgical site (if tumor spans multiple areas, please select predominant area): denominational Surgery side: left Surgical site (from skin exam): Left Roman Catholic Pre-operative length (cm): 1.2 Pre-operative width (cm): 0.8 Indications for Mohs surgery: anatomic location where tissue conservation is critical Other indications for Mohs surgery: Tumor is greater than 1 cm on the face Previously treated? No Mohs Appropriate Use Criteria Score: 9 Details of micrographic surgery: Mohs accession number: [id number] Micrographic Surgery Details: Post-operative length (cm): 2.2 Post-operative width (cm): 2 Number of Mohs stages: 2 Stage 1 Comments: The area was prepped with Betadine, draped in a sterile fashion, and infiltrated with local anesthetic. Sterile technique was used throughout the procedure. The marked area of clinical tumor with a small rim of clinically normal surrounding skin was removed using Mohs technique with beveled edges. Hash nova were placed for orientation of the specimen. Hemostasis was achieved with electrodessication. After hemostasis, the defect was measured and recorded, a temporary sterile dressing was placed over the wound, and the patient was escorted to the waiting area. The specimen was oriented, mapped, and if necessary, divided into sections. A Mohs map was prepared. The specimen was placed in a labeled tanja dish and was taken to the Mohs lab where it was chromacoded and processed. Mohs sections were prepared with serial tissue sections, stained, and evaluated by Dr. Chung for interpretation of deep and peripheral margins. The Mohs map was marked accordingly. Amount of lidocaine used: 3.0 cc Estimated blood loss: 1.0 cc Defect size: 2.0 x 1.5 cm Number of blocks per stage: 1 Number of positive blocks: 1 Tumor features identified on Mohs section: basal carcinoma Tumor features identified on Mohs section comment: nodular pattern Depth of defect after stage: subcutaneous fat Stage 2 Comments: The patient returned to the procedure room, the dressing was removed, the tumor area was re-prepped and draped, and anesthesia was assessed and augmented as necessary. A layer of tissue around the positive margin(s) was removed, and the tissue was oriented, mapped, and processed in an identical fashion as for Stage 1. Hemostasis was achieved and dressing placed as in Stage 1. The patient was escorted to the waiting area. As with Stage 1, Mohs sections were prepared with serial tissue sections, stained, and evaluated by Dr. Chung for interpretation of deep and peripheral margins. The Mohs map was updated. Assistants: Sheron Alvarez CMA Amount of lidocaine used: 3.0 cc Estimated blood loss: 1.0 cc Defect size: 2.2 x 2.0 cm Number of blocks: 1 Number of positive blocks: 0. Tumor free margins were obtained and the Mohs procedure was considered complete. Tumor features identified on Mohs section: no tumor identified Depth of defect after stage: subcutaneous fat Patient tolerance of procedure: tolerated well, no immediate complications Reconstruction: Was the defect reconstructed? Yes Was reconstruction performed by the same Mohs surgeon? No If no, what is the specialty of the surgeon who did the reconstruction? ENT facial plastics When was reconstruction performed? different day Antibiotics: Were antibiotics given on the day of surgery? Yes When were antibiotics given? post-operative cephalexin (Keflex) 500 MG capsule Take 1 capsule by mouth, bid, 10 days. Mohs Post Operative Type of repair: Referred for repair to Abdirizak France DO Wound Care: A dressing was placed on the surgical wound. Post-operative instructions were given in writing and were reviewed with the patient. A follow-up appointment was made, and instructions were given to follow-up sooner if necessary. Related Procedures Ambulatory referral to ENT 2. Skin neoplasm Left Intertragic Notch Erythematous dome-shaped nodule with central hyperkeratosis. 1.0 x 1.0 cm Biopsy deferred today due to insurance constraints Next visit: 06/06/2024 documented in this encounter [facility] 04-11-2024 Hospital Discharge instructions Patient Education 04/11/2024 [...] including vitamins, herbs, eye drops, creams, and mgnn-uxw-sxrdvyp medicines. Any problems you or family members [...] provider tells you to take them. Taking utdh-ixd-cytjxjo medicines, vitamins, herbs, and supplements. Tests You [...] Follow these instructions at home: Medicines Take gfgq-vku-pefdtsd and prescription medicines only as told by [...] provider. Document Revised: 11/13/2021 Document Reviewed: 10/12/2020 [employer] Patient Education 2023 [employer]. 04/11/2024 14:05:12 Hematuria, Adult Hematuria, Adult Hematuria [...] Follow these instructions at home: Medicines Take lczr-xye-gaqlgal and prescription medicines only as told by [...] or the blood stops without treatment. Take gjur-aik-tsedlcs and prescription medicines only as told by your health care provider. Drink enough fluid to keep your urine pale yellow. This information is not intended to replace advice given to you by your health care provider. Make sure you discuss any questions you have with your health care provider. Document Revised: 10/31/2020 Document Reviewed: 10/31/2020 [employer] Patient Education 2023 [employer]. Follow Up Care 04/01/2024 13:45:18 With:BEKA CROCKETT, Micaela Carpenter, URL Address: [facility] [address] , [place] [address]- [phone] When: Unknown [facility] 04-11-2024 Note Patient Education Urology Cystoscopy Cystoscopy [...] including vitamins, herbs, eye drops, creams, and qclq-vgm-eeqqqep medicines. ??? Any problems you or family [...] tells you to take them. ??? Taking idic-pgt-hemrcoy medicines, vitamins, herbs, and supplements. Tests You [...] these instructions at home: Medicines ??? Take fpjs-ftu-ansmuru and prescription medicines only as told by [...] (biopsy) during your (more content not included)... [facility] 04-11-2024 Evaluation + Plan note Diagnostic Tests PendingUroVysion Fish and Urine Cyto ([facility]) 04/11/24 [facility] 03-31-2024 History of Present illness Narrative [...] for possible cystoscopy. documented in this encounter [facility] 02-24-2024 History of Present illness Narrative Images from the original note were not included. Follow up Diagnosis: NUB Location: Left Roman Catholic Last visit:02/09/2024 Patient is here for Biopsy today. Established Patient All pertinent medical history, medications, and allergies were reviewed. General Exam: alert, oriented to person, place, and time, normal affect, well appearing Unaccompanied A focused exam completed based on patient reported problems, see below: 1. Neoplasm of unspecified behavior of bone, soft tissue, and skin Left Roman Catholic Erythematous papule Lesion biopsy Type of biopsy: [...] pending biopsy results documented in this encounter [facility] 02-24-2024 History of Present illness Narrative Associated [...] follow with ortho. documented in this encounter [facility] 02-09-2024 History of Present illness Narrative Lesions: Location: left denominational Duration: years Quality: denies pain, denies itch, [...] see below: 1. Neoplasm of skin Left Roman Catholic 1.1 x 1.0 cm Erythematous papule Recommended biopsy today. Lesion is suspicious for BCC and biopsy is needed. He would like to return after the holiday for biopsy. Return in 1-2 weeks. Stressed importance of his return for biopsy 2. Seborrheic keratosis Right Roman Catholic Stuck on verrucous, variably pigmented papules and [...] and LN2 [place] documented in this encounter [facility] 12-16-2023 History of Present illness Narrative Images from the original note were not included. Subjective Patient ID: Bill Allen is a 73 y.o. 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 [...] Past Medical History: Diagnosis Date Arthritis Hypertension ([facility]) Medications Current Outpatient Medications: cholecalciferol (Vitamin D-3) 50 MCG (2000 UT) capsule, Take 2,000 Units by mouth in the morning., Disp: , Rfl: coenzyme Q-10 100 MG capsule, Take 1 capsule by mouth 1 (one) time each day at the same time, Disp: , Rfl: Autcwxtapsx-Rcqepqsno-Rvk C-Mn (Glucosamine 1500 Complex) capsule, Take 1 [...] Jose Yen DPM documented in this encounter [facility] 11-25-2023 History of Present illness Narrative Physical [...] difficulty putting on shoes and socks. Precautions: [place]; h/o blood clots, on thinners Subjective: Pt [...] instructed in home exercise program. 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 documented in this encounter [facility] 11-11-2023 History of Present illness Narrative Physical [...] difficulty putting on shoes and socks. Precautions: [place]; h/o blood clots, on thinners Subjective: Pt [...] to be instructed in home exercise program. 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 Date: documented in this encounter [facility] 11-05-2023 History of Present illness Narrative Physical [...] difficulty putting on shoes and socks. Precautions: [place]; h/o blood clots, on thinners Subjective: Pt [...] to be instructed in home exercise program. 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 Date: documented in this encounter [facility] 09-29-2023 Instructions Ysabel Zapata RN - 09/29/2023 10:30 AM EDT Preoperative Education Checklist- General Surgery date: 10/20/23 Surgery time: 3:00 p.m. Arrival time: 1:00 p.m. 1. Bring a photo ID and your insurance card with you the day of surgery. You will check in at the main lobby registration desk as soon as you walk in the entrance. 2. If you have a Living Will/Durable Power of Inflated Pad Buffer for Health Care that is not on file here, please bring a copy the day of surgery. 3. Please wash your face with baby shampoo prior to procedure as instructed by your physician. 4. NO powder, lotion, perfume/cologne, aftershave, make-up, nail iranian on at least one finger, deodorant, or hair products after you have bathed. 5. Nothing to eat or drink (not even water, gum, mints, or hard candy!) AFTER midnight prior to your surgery. 6. Take only medications that you are instructed to on the morning of surgery with a TINY SIP OF WATER. 7. If you have an inhaler, use it routinely. 8. Choose a responsible adult that will be able to drive you home when you are discharged from your hospital stay for your surgery. You must NOT drive any vehicle or operate any machinery for 24 hours after surgery. 9. When you dress for your appointment, please wear comfortable clothing. 10. Do NOT wear jewelry, watches, or any piercings or metal for surgery. 11. Do NOT wear contact lenses for surgery- glasses are okay if needed. 12. The anesthesiologist will talk with you the day of surgery and will ask you to sign a Consent Form. 13. Refrain from smoking or any type of tobacco use for at least 8 hours or marijuana for 24 hours prior to arrival for your surgery. 14. Notify your surgeon if you develop any illness before your surgery. 15. If you have any questions prior to surgery, please call the Preadmission Testing office at [phone], Mon.-Fri. 7 a.m.-3 p.m. Leave a voicemail if needed. Pre-Surgery Instructions: Medication Instructions cholecalciferol, vitamin D3, 2,000 units capsule Stop taking 0 days prior to procedure coenzyme Q10 30 mg capsule Stop taking 0 days prior to procedure glucosamine-chondroitin 500-400 mg tablet Stop taking 0 days prior to procedure lisinopriL (PRINIVIL,ZESTRIL) 20 mg tablet Stop taking 0 days prior to procedure medical marijuana Stop taking 0 days prior to procedure metoprolol tartrate (LOPRESSOR) 50 mg tablet Take morning of procedure zuoruwgx-bija-RD-calcium &mins (THERAGRAN-M) 9 mg iron-400 mcg tablet Stop taking 0 days prior to procedure omega 3-sxs-fbq-fish oil (Fish OiL) 300-1,000 mg capsule Stop taking 1 week prior to procedure simvastatin (ZOCOR) 20 mg tablet Stop taking 0 days prior to procedure terazosin (HYTRIN) 10 mg capsule Stop taking 0 days prior to procedure warfarin (COUMADIN) 5 mg tablet Check with prescribing doctor for instructions [facility] Miscellaneous Notes Preoperative Education Checklist- General Surgery date: 10/20/23 Surgery time: 3:00 p.m. Arrival time: 1:00 p.m. 1. Bring a photo ID and your insurance card with you the day of surgery. You will check in at the main lobby registration desk as soon as you walk in the entrance. 2. If you have a Living Will/Durable Power of Inflated Pad Buffer for Health Care that is not on file here, please bring a copy the day of surgery. 3. Please wash your face with baby shampoo prior to procedure as instructed by your physician. 4. NO powder, lotion, perfume/cologne, aftershave, make-up, nail iranian on at least one finger, deodorant, or hair products after you have bathed. 5. Nothing to eat or drink (not even water, gum, mints, or hard candy!) AFTER midnight prior to your surgery. 6. Take only medications that you are instructed to on the morning of surgery with a TINY SIP OF WATER. 7. If you have an inhaler, use it routinely. 8. Choose a responsible adult that will be able to drive you home when you are discharged from your hospital stay for your surgery. You must NOT drive any vehicle or operate any machinery for 24 hours after surgery. 9. When you dress for your appointment, please wear comfortable clothing. 10. Do NOT wear jewelry, watches, or any piercings or metal for surgery. 11. Do NOT wear contact lenses for surgery- glasses are okay if needed. 12. The anesthesiologist will talk with you the day of surgery and will ask you to sign a Consent Form. 13. Refrain from smoking or any type of tobacco use for at least 8 hours or marijuana for 24 hours prior to arrival for your surgery. 14. Notify your surgeon if you develop any illness before your surgery. 15. If you have any questions prior to surgery, please call the Preadmission Testing office at [phone], Mon.-Fri. 7 a.m.-3 p.m. Leave a voicemail if needed. Pre-Surgery Instructions: Medication Instructions cholecalciferol, vitamin D3, 2,000 units capsule Stop taking 0 days prior to procedure coenzyme Q10 30 mg capsule Stop taking 0 days prior to procedure glucosamine-chondroitin 500-400 mg tablet Stop taking 0 days prior to procedure lisinopriL (PRINIVIL,ZESTRIL) 20 mg tablet Stop taking 0 days prior to procedure medical marijuana Stop taking 0 days prior to procedure metoprolol tartrate (LOPRESSOR) 50 mg tablet Take morning of procedure gmekswhh-bqfv-WI-calcium &mins (THERAGRAN-M) 9 mg iron-400 mcg tablet Stop taking 0 days prior to procedure omega 4-jtq-zmr-fish oil (Fish OiL) 300-1,000 mg capsule Stop taking 1 week prior to procedure simvastatin (ZOCOR) 20 mg tablet Stop taking 0 days prior to procedure terazosin (HYTRIN) 10 mg capsule Stop taking 0 days prior to procedure warfarin (COUMADIN) 5 mg tablet Check with prescribing doctor for instructions Surgical instructions reviewed. Patient verbalized understanding. Instructed patient to clarify with Dr Frausto's office about holding his Coumadin prior to surgery as she instructed for 10 days, but anesthesia only requires 5 days. Patient is concerned about developing a blood clot. He is heading to her office now. documented in this encounter [facility] 09-29-2023 Nurse Note Preoperative Education Checklist- General Surgery date: 10/20/23 Surgery time: 3:00 p.m. Arrival time: 1:00 p.m. 1. Bring a photo ID and your insurance card with you the day of surgery. You will check in at the main lobby registration desk as soon as you walk in the entrance. 2. If you have a Living Will/Durable Power of Inflated Pad Buffer for Health Care that is not on file here, please bring a copy the day of surgery. 3. Please wash your face with baby shampoo prior to procedure as instructed by your physician. 4. NO powder, lotion, perfume/cologne, aftershave, make-up, nail iranian on at least one finger, deodorant, or hair products after you have bathed. 5. Nothing to eat or drink (not even water, gum, mints, or hard candy!) AFTER midnight prior to your surgery. 6. Take only medications that you are instructed to on the morning of surgery with a TINY SIP OF WATER. 7. If you have an inhaler, use it routinely. 8. Choose a responsible adult that will be able to drive you home when you are discharged from your hospital stay for your surgery. You must NOT drive any vehicle or operate any machinery for 24 hours after surgery. 9. When you dress for your appointment, please wear comfortable clothing. 10. Do NOT wear jewelry, watches, or any piercings or metal for surgery. 11. Do NOT wear contact lenses for surgery- glasses are okay if needed. 12. The anesthesiologist will talk with you the day of surgery and will ask you to sign a Consent Form. 13. Refrain from smoking or any type of tobacco use for at least 8 hours or marijuana for 24 hours prior to arrival for your surgery. 14. Notify your surgeon if you develop any illness before your surgery. 15. If you have any questions prior to surgery, please call the Preadmission Testing office at [phone], Mon.-Fri. 7 a.m.-3 p.m. Leave a voicemail if needed. Pre-Surgery Instructions: Medication Instructions cholecalciferol, vitamin D3, 2,000 units capsule Stop taking 0 days prior to procedure coenzyme Q10 30 mg capsule Stop taking 0 days prior to procedure glucosamine-chondroitin 500-400 mg tablet Stop taking 0 days prior to procedure lisinopriL (PRINIVIL,ZESTRIL) 20 mg tablet Stop taking 0 days prior to procedure medical marijuana Stop taking 0 days prior to procedure metoprolol tartrate (LOPRESSOR) 50 mg tablet Take morning of procedure cwdexxdi-amer-BP-calcium &mins (THERAGRAN-M) 9 mg iron-400 mcg tablet Stop taking 0 days prior to procedure omega 4-coo-mnl-fish oil (Fish OiL) 300-1,000 mg capsule Stop taking 1 week prior to procedure simvastatin (ZOCOR) 20 mg tablet Stop taking 0 days prior to procedure terazosin (HYTRIN) 10 mg capsule Stop taking 0 days prior to procedure warfarin (COUMADIN) 5 mg tablet Check with prescribing doctor for instructions [facility] 09-29-2023 Nurse Note Surgical instructions reviewed. Patient verbalized understanding. Instructed patient to clarify with Dr Frausto's office about holding his Coumadin prior to surgery as she instructed for 10 days, but anesthesia only requires 5 days. Patient is concerned about developing a blood clot. He is heading to her office now. [facility] Evaluation + Plan note No data available for this section [facility] Evaluation note Diagnosis Onset Date Bilateral primary osteoarthritis of hip acute Spinal stenosis [facility] Work Phone: Evaluation note* Diagnosis Hammer toe of right foot- Primary History of DVT (deep vein thrombosis) documented [facility] encounter [facility]* [...] keratosis Actinic keratosis documented in this encounter [facility]* Diagnosis Benign hypertension (CMS/HCC)- Primary [...] Other premature beats documented in this encounter [facility]Evaluation note* Diagnosis Benign hypertension (CMS/HCC)- Primary [...] and skin- Primary documented in this encounter [facility] HealthcareEvaluation note* Diagnosis Bilateral primary osteoarthritis of hip- Primary Spinal stenosis, unspecified spinal region documented in this encounter [facility] HealthcareEvaluation note* Diagnosis Bilateral primary osteoarthritis of hip- Primary Spinal stenosis, unspecified spinal region documented in this encounter [facility] noteNo [facility] Evaluation note* Diagnosis [...] Other abnormal glucose documented in this encounter [facility] HealthcareEvaluation note* Diagnosis Preop examination- Primary Unspecified pre-operative examination Anticoagulated Encounter for long-term (current) use of 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 Preop examination Unspecified pre-operative examination documented in this encounter [facility]* Diagnosis Benign hypertension (CMS/HCC)- Primary Essential [...] Gross hematuria- Primary Prediabetes Other abnormal glucose Basal cell carcinoma (BCC) of left denominational region- Primary Skin neoplasm Neoplasm of unspecified nature of bone, soft tissue, and skin documented in this encounter [facility] HealthcareEvaluation note* Diagnosis Benign hypertension (CMS/HCC)- Primary [...] Gross hematuria- Primary Prediabetes Other abnormal glucose Mohs defect of forehead- Primary documented in this encounter [facility] Discharge instructions No data available for this section [facility] Progress note No data available for this section [facility] Summary Purpose Family History No Family History Records Found Relationship Condition Age at Onset Recorded Date/T ivan mother Type 2 diabetes mellitus Unknown father Chronic obstructive pulmonary disease Unk nown Malignant neoplasm of lung Unknown Malignant neoplasm of testicle Unknown Cerebrovascular accident (CVA) Unknown brother Cerebrovascular accident (CVA) Unknown Type 2 diabetes mellitus Unknown Advance Directives No Advanced Directives Records Found [...] Date Unknown March 19, 2024 12 :40pm Chief Complaint Admit Date Unknown March 19, 2024 12 :40pm Left Roman Catholic Wound May 13, 2024 7:19am Reason for Referral Specialty Diagnoses / Procedures Referred By Sabi [email or web address] Referred To Contact Diagnoses Preop examination Procedures ECG 12 lead Kely Garza MD [address] [place] [address] Referral ID Status Reason Start Date Expiration Date V isits Requested Visits Authorized [id number] Pending Review 09/23/2023 09/22/2024 1 1 Additional Source Comments (unrecognized sect ion and content) No Status Records FoundNo Status Records FoundNo Status Records FoundNo Status Records FoundNo Status Records FoundNo Status Records FoundNo Status Records Found INFORMATION SOURCE (unrecogn ized section and content) DATE CREATED AUTHOR 09/07/[address] [facility] DATE CREATED AUTHOR AUTHOR'S ORGANIZ ATION 07/24/2022 [facility] DATE CREATED AUTHOR AUTHOR'S ORGANIZ ATION 10/22/2023 [facility] DATE CREATED AUTHOR AUTHOR'S ORGANIZ ATION 04/12/2024 [facility] DATE CREATED AUTHOR AUTHOR'S ORGANIZ ATION 04/23/2024 [place] [facility] DATE CREATED AUTHOR AUTHOR'S ORGANIZ ATION 05/14/2024 [facility] DATE CREATED AUTHOR AUTHOR'S ORGANIZ ATION 05/15/[address] [facility] Care Teams (unrecognized [...] September 18, 2023 End: September 18, 2023 Relationship Executive Relationship Specialty Start Date End Date Dayron Cervantes MD [address] [place] [address] PCP - General Family Medicine 09/04/23 Relationship Executive Relationship Specialty Start Date End Date Dayron Cervantes MD [address] [place] [address] PCP - General Family Medicine 09/04/23 Relationship Executive Relationship Specialty Start Date End Date Dayron Cervantes MD [address] [place] [phone] PCP - General Family Medicine 09/04/23 Relationship Executive Relationship Specialty Start Date End Date Dayron Cervantes MD [address] [place] [address] PCP - General Family Medicine 09/04/23 Relationship Executive Relationship Specialty Start Date End Date Dayron Cervantes MD [address] [place] [address] PCP - General Family Medicine 09/04/23 Relationship Executive Relationship Specialty Start Date End Date Dayron Cervantes MD [address] [place] [address] PCP - General Family Medicine 09/04/23 Relationship Executive Relationship Specialty Start Date End Date Dayron Cervantes MD [address] [place] [address] PCP - General Family Medicine 09/04/23 Relationship Executive Relationship Specialty Start Date End Date Dayron Cervantes MD [address] [place] [address] PCP - General Family Medicine 09/04/23 Relationship Executive Relationship Specialty Start Date End Date Dayron Cervantes MD [address] [place] [address] PCP - General Family Medicine 09/04/23 Relationship Executive Relationship Specialty Start Date End Date Dayron Cervantes MD [address] [place] [address] PCP - General Family Medicine 09/04/23 Relationship Executive Relationship Specialty Start Date End Date Dayron Cervantes MD [address] [place] [address] PCP - General Family Medicine 09/04/23 Team Status: Inactive Member Role Status Dates Dayron Cervantes MD Primary Care Provider Active S tart: March 19, 2024 End: March 19, 2024 Kevan Berrios DO Attending Provider Active Start: March 19, 2024 End: March 19, 2024 Relationship Executive Relationship Specialty Start Date End Date Dayron Cervantes MD [address] [place] [address] PCP - General Family Medicine 09/04/23 Relationship Executive Relationship Specialty Start Date End Date Dayron Cervantes MD [address] [place] [address] PCP - General Family Medicine 09/04/23 Relationship Executive Relationship Specialty Start Date End Date Dayron Cervantes MD [address] [place] [address] PCP - General Family Medicine 09/04/23 Relationship Executive Relationship Specialty Start Date End Date Dayron Cervantes MD [address] [place] [address] PCP - General Family Medicine 09/29/23 Relationship Executive Relationship Specialty Start Date End Date Dayron Cervantes MD [address] [place] [address] PCP - General Family Medicine 09/04/23 Dayron Cervantes MD [address] [place] [address] PCP - ACO Reach 04/22/24 Relationship Executive Relationship Specialty Start Date End Date Dayron Cervantes MD [address] [place] [address] PCP - General Family Medicine 09/04/23 Dayron Cervantes MD [address] [place] [address] PCP - ACO Reach 04/22/24 Arjun Chung MD [address] [facility] [address] [place] [address] Referring Physician Dermatology 05/12/24 Colten France DO [address] [place] [address] Otolaryngology 05/12/24 Relationship Executive Relationship Specialty Start Date End Date Dayron Cervantes MD [address] [place] [address] PCP - General Family Medicine 09/04/23 Dayorn Cervantes MD [address] [place] [address] PCP - ACO Reach 04/22/24 Arjun Chung MD [address] [facility] [address] [place] [address] Referring Physician Dermatology 05/12/24 Colten France DO [address] [place] [address] Otolaryngology 05/12/24 Relationship Executive Relationship Specialty Start Date End Date Dayron Cervantes MD [address] [place] [address] PCP - General Family Medicine 09/04/23 Dayron Cervantes MD [address] [place] [address] PCP - ACO Reach 04/22/24 Arjun Chung MD [address] [place] [address] [place] [address] Referring Physician Dermatology 05/12/24 Colten France DO [address] [place] [address] Otolaryngology 05/12/24 Team Status: Inactive Member Role Status Dates Dayron Cervantes MD Primary Care Provider Active S tart: May 13, 2024 End: May 13, 2024 Colten France DO Attending Provider Active S tart: May 13, 2024 End: May 13, 2024 Goals (unrecognized section and content) Goals may be documented in a n alternate sectionGoals may be documented in an alternate sectionGoals may be documented in an alternate section No data available for this section No data available for this sectionNot on filedocumented as of this encounterGoals may be documented in an alternate section Reason for Visit (unrecogniz ed section and content) Reason Comments 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 [...] of hip Spinal stenosis, site unspecified Procedures [place] PHYSICAL THERAPY EVALUATION LOW COMPLEX 20 MINS Izabela Blackburn MD [address] [facility], [address] [place] [address] Staci Omer, SIDDHARTHA Referral ID Status Reason Start Date Expiration Date V isits Requested Visits Authorized [id number] Authorized 09/24/2023 03/22/2024 30 30 Referral ID Status Reason Start Date Expiration Date Visits Re quested Visits Authorized [id number] Closed 09/24/2023 03/22/2024 30 30 Reason Comments Blood in Urine Reason Comments Mohs Micrographic Surgery Suspicious Skin Lesion Reason Comments Mohs Reconstruction New Patient : Mohs l eft denominational / BCC FOR RECORDS PERTAINING TO PATIENTS WHO ARE [...] BE BASED ON THE PRIMARY CLINICAL RECORDS. [facility] [employer] provides no warranty or guarantee of the accuracy or completeness of information in this document.
[2024-05-16 07:34] VITALS: BP 167/79; PULSE 86; TEMP 36.2; O2SAT 97
[2024-05-16] MEDS: LIDOCAINE 2% JELLY 10 ML UR (08:00)
--- NOTE | 2024-05-16 08:11 | PM.URSON ---
Urology Surgery Operative Note Operative Note Procedure Date: 05/16/24 Time Out Performed: yes Pre-op Diagnosis: Gross hematuria Post-op Diagnosis: same as pre-op Procedures performed: 1. Cystoscopy. Anesthesia: local Primary Surgeon: Be Berman Complications: None Estimated blood loss (mL): 0 Findings: 1. 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 2. High-grade bladder damage with open diverticuli. 3. 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 At least 4 cm of tumors. Specimens: None Drains: None Indications for Procedures: This gentleman has intermittent gross hematuria. His FISH test was positive and his cytology was suspicious. CT scan suggests possible bladder irregularity at the dome. He now presents for cystoscopy. He has signed an informed consent after risks were explained. Detailed description of Procedure: The patient was kept on the gurney bed and brought in the endoscopy suite. He was in the supine position. Timeout was done by all parties in the room. Genitalia were sterilely prepped and draped in the usual fashion. 2% lidocaine gel was passed per urethra. I started by passing a flexible cystoscope per urethra and into the bladder. The anterior urethra was normal. Prostatic urethra showed trilobar obstruction of the prostate. Panendoscopy in the bladder revealed very high-grade trabeculation with open diverticuli diffusely. On the floor and towards the back wall and towards the left side were multiple papillary TCC patches. There was at least 4 cm worth of tumor. Retroflex of the scope revealed no new findings. The scope was then removed. He was then discharged to home. Plan: He will need a TURBT under anesthesia.
[2024-05-16 13:29] VITALS: BP 165/74; BP 167/79; PULSE 72; PULSE 73; O2SAT 97
== END 2024-05-16 08:24 | disposition home or self-care (01) ==
LOC: SURGOUT 07:28
PROVIDERS: PCP Family Medicine; Visit Provider Urology
PROC: (CPT 52000; principal; 2024-05-16 08:00)
DX: R31.0 Gross hematuria (principal); R35.1 Nocturia; N40.1 Benign prostatic hyperplasia with lower urinary tract symptoms; N52.9 Male erectile dysfunction, unspecified; Z87.442 Personal history of urinary calculi; N32.3 Diverticulum of bladder; C67.9 Malignant neoplasm of bladder, unspecified; N32.89 Other specified disorders of bladder
CPT/HCPCS: 52000

== ENCOUNTER 2024-05-24 13:22 | Outpatient (OUT) | payer MEDICARE, OTHER, SELFPAY ==
--- NOTE | 2024-05-24 13:30 | ECG_ITS ---
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
--- NOTE | 2024-05-24 13:30 | XR_ITS ---
The [address] [address] Patient Name: BILL HULL MRN: [id number] date: 1950 Sex: M Assigned Patient Location: [facility] Current Patient Location: [facility] Accession/Order Number: [id number] Exam Date: 05/24/2024 16:44 Report Date: 05/24/2024 16:45 At the request of: MICAELA IRELAND MD Procedure: XR chest 2V Chest 2 views CLINICAL HISTORY: Pre Op COMPARISON: Chest 11/08/2020 FINDINGS: Heart normal in size. Mild chronic interstitial changes. No consolidation pneumothorax pleural effusion or free air. XR/XR chest 2V IMPRESSION: MILD CHRONIC INTERSTITIAL CHANGES. NO CONSOLIDATION TO SUGGEST PNEUMONIA. Impression dictated by: Guille Encinas Jr., D.O.05/24/2024 4:45 PM Dictation Location: [place] [address] Electronically authenticated by: [id number] Y Date: 05/24/2024 16:45
[2024-05-24 14:25] LABS: Basophils Absolute Auto 0.1 10^3/uL (0.0-0.1); Basophils Percent Auto 0.4 % (0.2-2.0); Eosinophils Absolute Auto 0.2 10^3/uL (0.0-0.7); Eosinophils Percent Auto 1.4 % (0.9-7.0); Hematocrit 45.4 % (42.0-54.0); Immature Granulocytes Abs Auto 0.04 10^3/uL (0.00-0.03); Immature Granulocytes Pct Auto 0.3 % (0.0-0.5); Lymphocytes Absolute Auto 2.3 10^3/uL (1.2-3.8); Lymphocytes Percent Auto 19.6 % (20.5-60.0); Mean Corpuscular Hemoglobin 29.6 pg (25.9-34.0); Mean Corpuscular Volume 89.7 fL (80.0-94.0); Mean Platelet Volume 9.2 fL (9.5-13.5); Monocytes Absolute Auto 0.9 10^3/uL (0.3-0.8); Monocytes Percent Auto 7.9 % (1.7-12.0); Neutrophils Absolute Auto 8.2 10^3/uL (1.4-6.5); Neutrophils Percent Auto 70.4 % (43.0-75.0); Platelet Count 179 10^3/uL (150-450); Red Blood Count 5.06 10^6/uL (4.70-6.10); Red Cell Distribution Width 12.6 % (11.0-15.0); White Blood Count 11.7 10^3/uL (4.0-11.0)
--- NOTE | 2024-05-24 14:30 | P.GSHP_ITS ---
History of Present Illness History of Present Illness Chief complaint: Bladder tumors/lesions Narrative: Patient presents for presurgical testing. The patient states he has a history of hematuria and currently has frequency with urination with hesitation starting the stream. The patient had a local cystoscopy done last month and is now scheduled for a TURBT. The patient denies abdominal pain, nausea, fever, or any other complaints. Review of Systems ROS Narrative REVIEW OF SYSTEMS: Negative except as stated in HPI, ten or more systems reviewed. Constitutional: No fever, chills, weakness ENT: No sore throat or epistaxis Cardiovascular: No edema, chest pain, palpitations, or activity intolerance Respiratory: No shortness of breath, cough, or wheezing Musculoskeletal: No joint pain or swelling Gastrointestinal: No abdominal pain, constipation, diarrhea, or vomiting Neurological: No numbness, tingling, weakness, or headache Psychiatric: No mood changes [facility] Medical History (Updated 05/24/24 @ 14:15 by Ruma Recee NP) Medical marijuana use ?Z79.899 - Other skilled nursing (current) drug therapy (ICD-10) Hypercholesterolemia ?E78.00 - Pure hypercholesterolemia, unspecified (ICD-10) Neck pain ?M54.2 - Cervicalgia (ICD-10) DDD (degenerative disc disease) Back pain ?M54.9 - Dorsalgia, unspecified (ICD-10) Bladder tumor ?D49.4 - Neoplasm of unspecified behavior of bladder (ICD-10) Hematuria ?R31.9 - Hematuria, unspecified (ICD-10) Heartburn ?R12 - Heartburn (ICD-10) Deep vein thrombosis ?I82.409 - Acute embolism and thrombosis of unspecified deep veins of unspecified lower extremity (ICD-10) Basal cell carcinoma ?C44.91 - Basal cell carcinoma of skin, unspecified (ICD-10) Encounter for removal of skin lesion (05/2024) ?L98.9 - Disorder of the skin and subcutaneous tissue, unspecified (ICD-10) Mohs defect of left jain region ?M95.2 - Other acquired deformity of head (ICD-10) ?Z98.890 - Other specified postprocedural states (ICD-10) Hypertension ?I10 - Essential (primary) hypertension (ICD-10) Kidney stones ?N20.0 - Calculus of kidney (ICD-10) Nocturia ?R35.1 - Nocturia (ICD-10) Gross hematuria ?R31.0 - Gross hematuria (ICD-10) Erectile dysfunction ?N52.9 - Male erectile dysfunction, unspecified (ICD-10) Surgical History (Updated 05/24/24 @ 13:56 by Ruma Reece NP) History of colonoscopy ?Z98.890 - Other specified postprocedural states (ICD-10) S/P cystoscopy ?Z98.890 - Other specified postprocedural states (ICD-10) History of lithotripsy ?Z98.890 - Other specified postprocedural states (ICD-10) Family History (Updated 05/13/24 @ 11:34 by Ema Estrella RN) Other Emphysema lung Family history of cancer Family history of diabetes mellitus Family history of hypertension Family history of stroke Lung cancer Testicular cancer Social History (Updated 05/13/24 @ 11:20 by Ema Estrella RN) Within the past year, how often did you have a drink containing alcohol: never Score interpretation: A score less than 4 is consistent with normal alcohol consumption. Smoking status: Former smoker Do you use any of these nicotine containing products: vaping products Second hand tobacco smoke exposure: No Non-prescribed substance use: cannabis (any form) Non-prescribed substance use details: medical marijuana Previous occupational history: retired- [place] [employer] Highest level of school completed/degree received: Bachelor's degree Little interest or pleasure in doing things: not at all Feeling down, depressed, or hopeless: not at all Meds Home Medications and Allergies Home Medications ?Medication ?Instructions ?Recorded ?Confirmed ?Type metoprolol tartrate 50 mg tablet 50 mg PO BID 03/19/24 05/24/24 History simvastatin 20 mg tablet 20 mg PO DAILY 03/19/24 05/24/24 History terazosin 10 mg capsule 10 mg PO DAILY 03/19/24 05/24/24 History warfarin 5 mg tablet 5 mg PO DAILY 03/19/24 05/24/24 History cholecalciferol (vitamin D3) 50 2,000 unit PO DAILY 05/13/24 05/24/24 History mcg (2,000 unit) capsule coQ10 (liposomal ubiquinol) 8 mg 05/13/24 History mg/mL oral liquid glucosamine sulfate 500 mg tablet 500 mg PO BID 05/13/24 05/24/24 History (Glucosamine) lisinopril 10 mg tablet 10 mg PO DAILY 05/24/24 05/24/24 History multivitamin (Daily Multi-Vitamin 1 tab PO DAILY 05/24/24 05/24/24 History tablet) omega-3 fatty acids 500 mg capsule 500 mg PO DAILY 05/24/24 05/24/24 History Allergies Allergy/AdvReac Type Severity Reaction Status Date / Time No Known Drug Allergies Allergy Verified 05/24/24 13:45 Exam Narrative Exam Narrative: Constitutional: Awake, alert, comfortable, well-appearing, nontoxic, interactive, vital signs as charted Head: Normocephalic, atraumatic Neck: Supple, normal appearance, normal range of motion, no meningeal signs, no lymphadenopathy Respiratory: No respiratory distress, breath sounds clear Cardiovascular: Regular rate and rhythm, strong and regular heart tones Abdomen: Nontender, normal bowel sounds, soft, no CVA tenderness Musculoskeletal: Normal gait, no swelling or edema Skin: No rashes or induration, well-healed incision left jain, only visible skin inspected Neuro: No neurological deficits, normal sensation Psychiatric: Oriented ?3, normal affect Assessment and Plan Assessment and Plan (1) Bladder tumor: Plan Cystoscopy/TURBT scheduled with Dr. Berman June 02, 2024.
[2024-05-24 14:39] LABS: Anion Gap 11.1; BUN Creatinine Ratio 15.8; Calcium 9.4 mg/dL (8.5-10.1); Carbon Dioxide 29.2 mmol/L (21.0-32.0); Chloride 107 mmol/L (98-107); Estimated GFR (African America >60 (>=60 mL/min/1.73m^2); Estimated GFR (Non-African Ame 59 (>=60 mL/min/1.73m^2); Glucose 91 mg/dL (74-106); Potassium 4.3 mmol/L (3.5-5.1); Sodium 143 mmol/L (136-145)
[2024-05-24 15:07] LABS: INR 1.57; Partial Thromboplastin Time 28.8 sec (22.3-36.2); Prothrombin Time 15.9 sec (9.0-11.6)
== END 2024-05-24 13:23 | disposition home or self-care (01) ==
LOC: PST 13:23
PROVIDERS: PCP Family Medicine; Visit Provider Urology
DX: Z01.810 Encounter for preprocedural cardiovascular examination (principal); Z01.812 Encounter for preprocedural laboratory examination; Z01.818 Encounter for other preprocedural examination; D49.4 Neoplasm of unspecified behavior of bladder; R31.9 Hematuria, unspecified; N20.0 Calculus of kidney
CPT/HCPCS: 36415; 71046; 80048; 85025; 85610; 85730; 93005; G0463

== ENCOUNTER 2024-06-02 11:10 | Day surgery (SDC) | payer MEDICARE, OTHER, SELFPAY ==
[2024-05-24 14:08] VITALS: BP 167/81; PULSE 64; TEMP 36.3; O2SAT 98; BMI 32.4
[2024-06-02] VITALS (10 sets, daily range): BP systolic 119–172; BP diastolic 68–101; PULSE 59–81; TEMP 35.9–36.6; O2SAT 93–99; BMI 32.4
--- OUTSIDE RECORDS SUMMARY | 2024-06-02 11:22 | XMS_ITS | CCD ---
Author Organization [facility] Care Team Providers Care Neon Molder Name Role Phone CHARBEL ZUÑIGA Unavailable Unavailable [...] DR DAYRON Mckinney Consulting Unavailable NADERER, DR ADYRON Mckinney Admitting Unavailable [...] Attending Unavailable SAMSA ., OUSMANE Admitting Unavailable [place], DR KELY Rae Consulting Unavailable SAMSA ., OUSMANE Attending Unavailable NADERER, DR DAYRON Mckinney Primary Care Unavailable SAMSA ., OUSMANE Consulting Unavailable MD Dayron Cervantes Primary Care Provider MD Stanley Gregory II Attending Provider [phone] MD Izabela Blackburn Attending Provider KELY GARZA Referring Unavailable NADEREJayden, DAYRON Primary Care Unavailable KELY GARZA Attending Unavailable KELY GARZA Referring Unavailable NADERER, DAYRON Primary Care Unavailable JOANNA FRAUSTO Admitting Unavailable JOANNA FRAUSTO Attending Unavailable JOANNA FRAUSTO Referring Unavailable VALENTINE GOMEZ Attending Unavailable DAYRON CERVANTES Primary Care Unavailable Helen CROCKETT, Dayron Primary Care Provider [phone] Helen CROCKETT, Dayron Primary Care Provider Kevan Berrios DO Attending Provider HELEN, DAYRON Referring Unavailable Micaela IRELAND Attending Unavailable Micaela IRELAND Attending Unavailable Micaela IRELAND Admitting Unavailable DAYRON CERVANTES Primary Care Physician Helen CROCKETT, Dayron Primary Care Provider [phone] Helen CROCKETT, Dayron Unavailable Arjun Chung MD Unavailable [phone] Colten France DO Unavailable [phone] Román VIVEROS, Colten Attending Provider [phone] Helen CROCKETT, Dayron Primary Care Provider Kevan Berrios DO Attending Provider Colten France DO Attending Provider Micaela IRELAND Attending Unavailable Micaela IRELAND R Attending Unavailable Micaela IRELAND R Attending Unavailable Micaela IRELAND Attending Unavailable ARJUN CHUNG Attending Unavailable COLTEN FRANCE Attending Unavailable ARJUN CHUNG Referring Unavailable MICHAEL THORNTON Attending Unavailable ARJUN CHUNG Referring Unavailable DAYRON CERVANTES Attending Unavailable STACI OMER Attending Unavailable BLACKBURN, IZABELA Referring Unavailable OMER STACI Attending Unavailable BLACKBURN, IZABELA Referring Unavailable OMERAMORA Attending Unavailable BLACKBURN, IZABELA Referring Unavailable OMER, STACI Attending Unavailable BLACKBURN, IZABELA Referring Unavailable OMER, STACI Attending Unavailable BLACKBURN, IZABELA Referring Unavailable JOSE YEN Attending Unavailable ANA OSULLIVAN Attending Unavailable DAYRON CERVANTES Attending Unavailable ANA OSULLIVAN Attending Unavailable DAYRON CERVANTES Attending Unavailable Stanley Gregory II Admitting UnavailStanley Gaffney II Attending Unavailabl e Dayron Cervantes Primary Care Unavailable Blackburn, Izabela E Admitting Unavailable Blackburn, Izabela E Attending Unavailable Dayron Cervantes Primary Care Unavailable Biedenbach, Colten Admitting Unavailable Colten France Attending Unavailable Dayron Cervantes Primary Care Unavailable Stanley Gregory II Admitting UnavailStanley Gaffney II Attending UnavailDayron Kuhn Primary Care Unavailable Colten France Admitting Unavailable Colten France Attending Unavailable Dayron Cervantes Primary Care Unavailable Kevan Berrios Admitting Unavailable Kevan Berrios Attending Unavailable Dayron Cervantes Primary Care Unavailable Medications Current Medications Medication Drug Class(es) Dates Sig (Normalized) Sig (Original) acetaminophen 325 mg / HYDROcodone bitartrate 5 mg oral tablet (1 source) Opioid Agonist Start: 05-18-2024 take 1 tablet by mouth every six hours as needed for pain Hydrocodone-Acetamin ophen 5-325 mg tablet Active 1 TAB PO Every 6 hours as needed for pain 02 10May 18, 2024 cephalexin 500 mg oral capsule (13 sources) Cephalosporin Antibacterial Start: 05-10-2024 take 1 capsule by mouth twice daily cephalexin (Keflex) 500 MG capsule Indications: Basal cell carcinoma (BCC) of left mandaen region Take 1 capsule by mouth, bid, 10 days. 20 capsule 05/10/2024 Active cholecalciferol 0.05 mg oral tablet (20 sources) Vitamin D Start: 05-13-2024 take 1 tablet by mouth once daily Cholecalciferol (Vitamin D3) (Vitamin D3) 50 mcg (2,000 unit) tablet Active 50 MCG PO every day at noon May 13, 2024 1:00am Start: 07-15-2023 End: 05-13-2024 Cholecalciferol (Vitamin D3) 62.5 mcg (2,500 unit) capsule Discontinued MCG PO July 15, 2023 12:00am May 13, 2024 9:00am Start: 07-15-2023 End: 05-13-2024 Cholecalciferol (Vitamin D3) 62.5 mcg (2,500 unit) capsule Discontinued MCG PO July 14, 2023 11:00pm May 13, 2024 8:00am Start: 07-15-2023 Cholecalcifero l (Vitamin D3) 62.5 mcg (2,500 unit) capsule Active MCG PO July 14, 2023 11:00pm Start: 07-15-2023 Cholecalcifero l (Vitamin D3) Active MCG PO July 15, 2023 12:00am take 1 capsule by mo ut in the morning cholecalciferol (Vitamin D-3) 50 MCG (1999) capsule Take 2,000 Units by mouth in [...] mg oral tablet (19 sources) Anticholinergic End: take 1 tablet by mouth four times daily as needed dicyclomine (Bentyl) 20 MG tablet Take 20 mg by mouth 4 (four) times a day as needed 02/24/2024 Discontinued Fish Oils (20 sources) Start: 025 take 500 mg by mouth once daily Fish Oil 500 mg, Oral, Daily, Refill(s) 0 Start Date: 04/11/24 Status: Ordered take 1 capsule by mouth once jermaine ly omega-3 (FISH OIL) 300 MG capsule Take 300 mg by mouth Daily Active glucosamine 500 mg oral tablet (7 sources) Start: 04-11-2024 take 500 mg by mouth twice daily glucosamine 500 mg, Oral, BID, Refills(s) 0 Start Date: 04/11/24 Status: Ordered Start: 07-15-2023 take 1 capsule by mo [facility] twice daily at mealtime Glucosamine Sulfate 1,000 mg capsule Active 1000 MG PO Twice daily July 15, 2023 12:00am administer with meals Jtpndywftyt-Xzjepayki-Dau C-Mn (Glucosamine 1500 Complex) capsule (20 sources) Glucosamine-Sam droit-Vit C-Mn (Glucosamine 1500 Complex) capsule Take 1 capsule by mouth in the morning. Active lisinopril 20 mg oral tablet (20 sources) Angiotensin Converting Enzyme Inhibitor Star t: 09-14 End: 09-14 take 1 tablet by mouth once daily lisinopril 20 MG tablet Indications: Benign hypertension (CMS/HCC) Take 1 tablet (20 mg) by mouth Daily 90 tablet 3 10/05/2023 10/04/2024 Active Start: 07-15-2023 End: 05-13-2024 take 1 tablet by mouth once daily Lisinopril 10 mg tablet Discontinued 10 MG PO Daily July 15, 2023 12:00am May 13, 2024 9:04am take 1 tablet by jim th in the morning lisinopriL (PRINIVIL,ZESTRIL) 20 mg tablet Take 1 tablet (20 mg total) by mouth in the morning. Active Medical marijuana (5 sources) Start: 07-15-2023 Medical mariju adrianne Active PO Daily July 15, 2023 12:00am Start: 07-15-2023 Medical mariju adrianne Active PO [...] Active MG PO July 15, 2023 12:00am jdxmrlki-bbut-CB-calcium &mi ns (THERAGRAN-M) 9 mg iron-400 mcg tablet (1 source) take 0.5 tablet by mouth once in the morning yvqditts-dord-DA-calcium &mins (THERAGRAN-M) 9 mg iron-400 mcg tablet [...] Daily July 15, 2023 12:00am Multivitamin tablet (3 sources) Start: take 0.5 tablet by mouth once daily Multivitamin tablet Active 0.5 TAB PO every day at noon July 15, 2023 12:00am Start: 07-15-2023 take 0.5 tablet by m out once daily Multivitamin tablet Active 0.5 TAB PO every day at noon July 14, 2023 11:00pm Start: 07-15-2023 take 1 tablet by jim once daily Multivitamin tablet Active 1 TAB PO Daily July 14, 2023 11:00pm omega 4-rtx-rwc-fish oil (Fish OiL) 300-1,000 mg capsule (1 source) omega 3-dha-epa- fish oil (Fish OiL) 300-1,000 mg capsule Take by mouth daily. Active [place] 0-Erv-Fzv-Fish Oil (Fish Oil) 60-90-500 mg capsule (3 sources) Start: 09-24-2023 take 1 capsule by mouth once daily at bedtime [place] 5-Tcm-Fxb-Fish Oil (Fish Oil) 60-90-500 mg capsule Active 1 CAP PO Daily at bedtime September 24, 2023 12:00am Start: 09-24-2023 take 1 capsule by mo [facility] once daily at bedtime [place] 2-Mtp-Jzu-Fish Oil (Fish Oil) 60-90-500 mg capsule Active 1 CAP PO Daily at bedtime September 23, 2023 11:00pm Start: 09-24-2023 take 1 capsule by mo [facility] once daily [place] 6-Wgr-Fss-Fish Oil (Fish Oil) 60-90-500 mg capsule Active 1 CAP PO Daily September 23, 2023 11:00pm simvastatin 20 mg oral tablet (20 sources) HMG-CoA Reductase Inhibitor Start: 07-15-2023 End: 10-04-2024 take 1 tablet by mouth at bedtime simvastatin (Zocor) 20 MG tablet Indications: Dyslipidemia (CMS/HCC) Take 1 tablet (20 mg) by mouth at bedtime 90 tablet 3 10/05/2023 10/04/2024 Active terazosin 10 mg oral tablet (20 sources) [...] 10/05/2023 10/04/2024 Active ubidecarenone 100 mg oral ca psule (6 sources) Start: 07-15-2023 Coenzyme Q10 ( Co Q-10) 100 mg capsule Active 100 MG PO every day at noon July 15, 2023 12:00am take 1 capsule by mouth three ti [...] tablet (20 sources) Vitamin K Antagonist Start: warfarin (Coumadin) 5 MG tablet Indications: BPH associated with nocturia Take 1 tablet daily 90 tablet 3 10/05/2023 Active Completed/Discontinued Medications Medication Drug Class(es) Dates Sig [...] Onset: 03-04-2023 07-15-2023 Chronic Other acquired deformities (4 sources) Surgical wound finding; Translations: [Other acquired deformity of head] 05-12-2024 Episodic Other aftercare (5 sources) 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; 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] Onset: 07-17-2022 Episodic Other aftercare (1 source) Encounter for other plastic and reconstructive surgery following medical procedure or healed injury; Translations: [Encounter for other plastic and reconstructive surgery following medical procedure or healed injury] Onset: 05-18-2024 Episodic Other lower respiratory disease (4 sources) Pulmonary fibrosis, unspecified; Translations: [PULMONARY FIBROSIS UNSPECIFIED] Onset: 11-27-2021 Chronic Other lower respiratory disease (20 sources) Fibrosis of lung; Translations: [Pulmonary fibrosis, unspecified] Onset: 03-04-2023 03-04-2023 Chronic Other male genital disorders (3 sources) Male erectile dysfunction, unspecified; Translations: [Erectile dysfunction] Onset: 04-11-2024 Chronic Other non-epithelial cancer of skin (4 sources) Basal cell carcinoma of mandaen; Translations: [Basal cell carcinoma of skin of other parts of face] 05-10-2024 Episodic Other non-traumatic joint disorders (5 sources) Hip pain; Translations: [Pain in right [...] Other aftercare (20 sources) 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; Translations: [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] Onset: 03-04-2023 03-04-2023 Episodic Other aftercare (20 sources) Long-term current use of drug therapy; Translations: [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] Onset: 09-04-2023 09-04-2023 Episodic Other aftercare (20 sources) Patient encounter status; Translations: [Encounter for screening for malignant neoplasm of prostate] Onset: 09-04-2023 09-04-2023 Episodic Other aftercare (1 source) 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; Translations: [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] 09-29-2023 Episodic Other gastrointestinal disorders (20 sources) Irritable bowel syndrome with diarrhea; Translations: [Irritable bowel syndrome with diarrhea] Onset: 03-04-2023 Resolved: 02-24-2024 03-04-2023 Chronic Other nervous system disorders (3 sources) Postoperative pain ; Translations: [Other acute postprocedural pain] Onset: 05-25-2024 Resolved: 05-25-2024 05-18-2024 Episodic Other non-traumatic joint disorders (1 source) [...] thrombosis and embolism] Onset: 03-04-2023 12-16-2023 Episodic Screening and history of mental health and substance abuse codes (2 sources) Ex-tobacco user; Translations: [Personal history of nicotine dependence] Onset: 05-25-2024 Resolved: 05-25-2024 05-25-2024 Episodic Spondylosis; intervertebral disc disorders; other back problems (20 sources) Spinal stenosis; Translations: [Spinal stenosis, site unspecified] Onset: 03-04-2023 07-15-2023 Episodic Comment on above: with right sided wea kness Results Test Name Value Interpretation Reference Range Facility ALL CBC WITH AUTO DIFFon BASOPHILS ABSOLUTE AUTO 0.1 [facility] Basophils/100 WBC (Bld) 0.4 % 0.2 - 2.0 % [facility] Eosinophils/100 WBC (Bld) 1.4 % 0.9 - 7.0 % [facility] Erythrocyte distribution width (RBC) [Ratio] 12.6 % 11.0 - 15.0 % [facility] Hematocrit (Bld) [Volume fraction] 45.4 % 42.0 - 54.0 % [facility] Hemoglobin (Bld) [Mass/Vol] 15 g/dL 14.0 - 18.0 g/dL [facility] IMMATURE GRANULOCYTES ABS AUTO 0.04 High [facility] Immature granulocytes/100 WBC (Bld) 0.3 % 0.0 - 0.5 % [facility] Interpretation and review of laboratory results Abnormal [facility] LYMPHOCYTES ABSOLUTE AUTO 2.3 [facility] Lymphocytes/100 WBC (Bld) 19.6 % Low 20.5 - 60.0 % [facility] MCH (RBC) [Entitic mass] 29.6 pg 25.9 - 34.0 pg [facility] MCHC (RBC) [Mass/Vol] 33 g/dL 29.9 - 35.2 g/dL [facility] MCV (RBC) [Entitic vol] 89.7 fL 80.0 - 94.0 fL [facility] MONOCYTES ABSOLUTE AUTO 0.9 High [facility] Monocytes/100 WBC (Bld) 7.9 % 1.7 - 12.0 % [facility] NEUTROPHILS ABSOLUTE AUTO 8.2 High [facility] Neutrophils/100 WBC (Bld) 70.4 % 43.0 - 75.0 % [facility] Platelet mean volume (Bld) [Entitic vol] 9.2 fL Low 9.5 - 13.5 fL [facility] EO # 0.2 [facility] PLT 179 [facility] RBC 5.06 [facility] WBC 11.7 High [facility] Pathology study report docum entOrdered By: Linh Martin on 05-22-2024 Pathology study [facility] Other 05-18-2024 L ---- Specimen: [id number] Received: 05/19/24 Status: MIGUEL Miller Num: [id number] Spec Type: Surgical Subm Dr: Colten France DO Tissues: A Debridement-Skin/Other Than Skin (LEFT MU-ISM WOUND) Procedures: Shiv DISLA/Ehsan Burt Age/ Patient Sex Location Account Attending Physician Bill Allen 73/M [place] [id number] Colten France, SPEC NUM: [id number] RECD: 05/19/24 STATUS: MIGUEL MILLER NUM: [id number] GOLDEN: 05/18/[address] [facility] [address]: Colten France DO ENTERED: 05/19/[address] [facility] [address]: ARELT TYPE: Surgical DEPT: S ENTERED BY: [id number] RECV BY: [id number] ORDERED: HE, Gross/Micro L3 ORDERED: HE, Gross/Micro L3 Pathological Diagnosis Skin, left mandaen, excision: -Severe nonhealing chronic open wound with patchy fibrinoid exudates covering denuded skin surface, and mild deep collagenous fibrosis, with occasionally displaced and/or disrupted and damaged nests of hair follicle epithelium, at the dermal subcutaneous junction Clinical Information Left mandaen wound Gross Description Part A is received in formalin labeled with the patients name, date of , and wound debridement skin BX L mandaen are 2 martinez-randolph, wrinkled, crescent wedges of skin, 2.5 x 1 x 0.3 cm and 3 x 1 x 0.4 cm with a detached wedge of skin, 0.5 x 0.5 x 0.6 cm. The crescent wedges of skin are inked green along the lesser curvature, and black along the greater curvature with the wedge entirely inked black. The lesser curvature of each crescent wedge specimen is lined by randolph-pink, finely granular tissue, up to 0.5 cm in thickness. Serial sections reveal martinez-randolph, dull, and uniform cut surfaces. Mineral Surveying Technician sections are submitted in a single cassette. (1, , [id number]) SMITH Specimen: [id number] Received: 05/19/24 Status: MIGUEL Miller Num: [id number] Spec Type: Surgical Subm Dr: Colten France DO Tissues: A Debridement-Skin/Other Than Skin (LEFT MU-ISM WOUND) Procedures: Shiv DISLA/Ehsan L3 Patient: Bill Allen [id number] (Continued) Specimen: [id number] Received: 05/19/24 (Continued) Signed (signature on file) Linh Martin MD 05/22/24 1146 Specimen: [id number] Received: 05/19/24 Status: MIGUEL Miller Num: [id number] Spec Type: Surgical Subm Dr: Colten France DO Tissues: A Debridement-Skin/Other Than Skin (LEFT MU-ISM WOUND) Procedures: NAIF, Gross/Ehsan L3 Patient: Bill Allen [id number] (Continued) Specimen: [id number] Received: 05/19/24 (Continued) Microscopic Description Microscopic examinations are performed supporting the above interpretation CPT Codes 20101 Specimen: [id number] Received: 05/19/24 Status: MIGUEL Miller Num: [id number] Spec Type: Surgical Subm Dr: Colten France DO Tissues: A Debridement-Skin/Other Than Skin (LEFT MU-ISM WOUND) Procedures: HE, Shiv/Ehsan L3 Patient: Bill Allen [id number] (Continued) Signed (signature on file) Aaron-Joshua Martin MD 05/22/24 1146 Normal [facility] Basic Metabolic Panelon 04-17 Anion gap [Moles/Vol] 10.4 mmol/L Normal 6.0-15.0 [facility] Comment on above: Performed By: #### B MP #### [address] Calcium [Mass/Vol] 9.9 mg/dL Normal 8.6-10.3 [facility] Comment on above: Result Comment: PERF ORMED BY: [place] [id number] PATHOLOGIST RESPIRATORY SCIENTIST MELISSA AMBROCIO M.D. Performed By: #### B MP #### [place] [address] [place] Chloride [Moles/Vol] 108 mmol/L High 98-107 [facility] Comment on above: Performed By: #### B MP #### [place] [address] [place] CO2 [Moles/Vol] 25.9 mmol/L Normal 21.0-31.0 [facility] Comment on above: Performed By: #### B MP #### [address] Creatinine [Mass/Vol] 1.14 mg/dL Normal 0.70-1.30 [facility] Comment on above: Performed By: #### B MP #### [place] [address] [place] GFR/1.73 sq M.predicted MDRD (S/P/Bld) [Vol rate/Area] mL/min/{1.73_m2} Normal [facility] Comment on above: Performed By: #### B MP #### [address] Glucose [Mass/Vol] 125 mg/dL High 70-100 [facility] Comment on above: Result Comment: [place] Glucose Reference Range is dependent on time and content of last meal. Glucose of more than 200 mg/dL in a nonstressed, ambulatory subject supports the diagnosis of Diabetes Mellitus. ADA recommended reference range Performed By: #### B MP #### [address] Potassium [Moles/Vol] 4.3 mmol/L Normal 3.5-5.1 [facility] Comment on above: Performed By: #### B MP #### [place] [address] [place] Sodium [Moles/Vol] 140 mmol/L Normal 136-145 [facility] Comment on above: Performed By: #### B MP #### [address] Urea nitrogen [Mass/Vol] 20 mg/dL Normal 7-25 [facility] Comment on above: Performed By: #### B MP #### [address] Basic metabolic 1998 panelon 05-13-2024 Anion gap [Moles/Vol] 10.4 mmol/L 6.0 - 15.0 meq/L [facility] Calcium [Mass/Vol] 9.9 mg/dL 8.6 - 10. 3 mg/dL [facility] Chloride [Moles/Vol] 108 mmol/L High 98 - 10 7 mmol/L [facility] CO2 [Moles/Vol] 25.9 mmol/L 21.0 - 31.0 mmol/L [facility] Creatinine (U) [Mass/Vol] 1.14 mg/dL 0.70 - 1.30 mg/dL [facility] ESTIMATED GFR mL/Min [facility] Glucose [Mass/Vol] 125 mg/dL High 70 - 100 mg/dL [facility] Comment on above: Random Glucose Refer ence Range is dependent on time and content of last meal. Glucose of more than 200 mg/dL in a nonstressed, ambulatory subject supports the diagnosis of Diabetes Mellitus. ADA recommended reference range Interpretation and review of laboratory results Abnormal [facility] Potassium [Moles/Vol] 4.3 mmol/L 3.5 - 5.1 mmol/L [facility] Sodium [Moles/Vol] 140 mmol/L 136 - 145 mmol/L [facility] Urea nitrogen [Mass/Vol] 20 mg/dL 7 - 25 mg/dL [facility] Bas[facility] Auto (Bld) [#/Vol] Ordered By: Colten France on 05-13-2024 Basophils (Bld) [#/Vol] Automated basophil count 0.0-0.2 [facility] Basophils/100 WBC Auto (Bld) Ordered By: Colten France on 05-13-2024 Basophils/100 WBC (Bld) Automated basophil % . [facility] CBC W Auto Differential pane l (Bld)on 05-13-2024 Basophils (Bld) [#/Vol] 0.1 10*3/uL 0.0 - 0.2 10*3/uL [facility] Basophils/100 WBC Manual cnt (Syn fld) 0.7 % . [facility] care Eosinophils (Bld) [#/Vol] 0.2 10*3/uL 0.0 - 0.45 10*3/uL [facility] Eosinophils/100 WBC Manual cnt (Syn fld) 2 % . [facility] Erythrocyte distribution width (RBC) [Ratio] 13.5 % 12.0 - 14.8 % [facility] Hematocrit (Bld) [Volume fraction] 43.5 % 38.8 - 50.0 % [facility] Hemoglobin (Bld) [Mass/Vol] 14.9 g/dL 13.0 - 17.0 g/dL [facility] Interpretation and review of laboratory results Abnormal [facility] Lymphocytes (Bld) [#/Vol] 2 10*3/uL 1.00 - 4.8 10*3/uL [facility] Lymphocytes/100 WBC Manual cnt (Syn fld) 19.9 % . [facility] MCH (RBC) [Entitic mass] 29.6 pg 27.5 - 35.2 pg [facility] MCHC (RBC) [Mass/Vol] 34.4 g/dL 32.5 - 35.6 g/dL [facility] MCV (RBC) [Entitic vol] 86.2 fL 83.5 - 101 fL [facility] Monocytes (Bld) [#/Vol] 0.9 10*3/uL High 0.0 - 0.8 10*3/uL [facility] Monocytes+Macrophages /100 WBC Manual cnt (Syn fld) 8.6 % . [facility] Neutrophils (Bld) [#/Vol] 7 10*3/uL 1.8 - 7.7 10*3/uL [facility] Neutrophils/100 WBC Manual cnt (Syn fld) 68.8 % . [facility] NRBC 0 /100{WBC} 0 - 0.5 /100{WBC} [facility] Platelet mean volume (Bld) [Entitic vol] 7.5 fL 6.6 - 10.1 fL [facility] Platelets (Bld) [#/Vol] 197 10*3/uL 150 - 450 10*3/uL [facility] RBC LM.HPF (Urine sed) [#/Area] 5.05 10*6/uL 3.90 - 5.60 10*6/uL [facility] WBC (Bld) [#/Vol] 10.2 10*3/uL 4.1 - 10.5 10*3/uL [facility] WBC LM.HPF (Urine sed) [#/Area] 10.2 10*3/uL 4.1 - 10.5 10*3/uL [facility] Calcium [Mass/volume] in Ser um or PlasmaOrdered By: Colten France on 05-13-2024 Calcium [Mass/Vol] Calcium [Mass/volume ] in Serum or Plasma 8.6-10.3 [facility] Carbon dioxide, total [Moles /volume] in Serum or PlasmaOrdered By: Colten France on 05-13-2024 CO2 [Moles/Vol] Carbon dioxide, tota l [Moles/volume] in Serum or Plasma 21.0-31.0 [facility] Chloride [Moles/volume] in S [place] or PlasmaOrdered By: Colten France on 05-13-2024 Chloride [Moles/Vol] Chloride [Moles/vol ume] in Serum or Plasma High 98-107 [facility] Complete Blood Count Auto Di ffon 05-13-2024 Basophils (Bld) [#/Vol] 0.1 10*3/uL Normal 0.0-0.2 [facility] Comment on above: Result Comment: PERF ORMED BY: [place] [address] PATHOLOGIST RESPIRATORY SCIENTIST MELISSA AMBROCIO M.D. Performed By: #### C BC #### [address] Basophils/100 WBC (Bld) 0.7 % Normal . [facility] Comment on above: Performed By: #### C BC #### [address] Eosinophils (Bld) [#/Vol] 0.2 10*3/uL Normal 0.0-0.45 [facility] Comment on above: Performed By: #### C BC #### [address] Eosinophils/100 WBC (Bld) 2.0 % Normal . [facility] Comment on above: Performed By: #### C BC #### [address] Erythrocyte distribution width (RBC) [Ratio] 13.5 % Normal 12.0-14.8 [facility] Comment on above: Performed By: #### C BC #### [address] Hematocrit (Bld) [Volume fraction] 43.5 % Normal 38.8-50.0 [facility] Comment on above: Performed By: #### C BC #### [address] Hemoglobin (Bld) [Mass/Vol] 14.9 g/dL Normal 13.0-17.0 [facility] Comment on above: Performed By: #### C BC #### [address] [address] Lymphocytes (Bld) [#/Vol] 2.0 10*3/uL Normal 1.00-4.8 [facility] Comment on above: Performed By: #### C BC #### [address] Lymphocytes/100 WBC (Bld) 19.9 % Normal . [facility] Comment on above: Performed By: #### C BC #### [address] MCH (RBC) [Entitic mass] 29.6 pg Normal 27.5-35.2 [facility] Comment on above: Performed By: #### C BC #### [address] MCV (RBC) [Entitic vol] 86.2 fL Normal 83.5-101 [facility] Comment on above: Performed By: #### C BC #### [address] Mean Corpuscular HGB Conc 34.4 g/dL Normal 32.5-35.6 [facility] Comment on above: Performed By: #### C BC #### [address] Monocytes (Bld) [#/Vol] 0.9 10*3/uL High 0.0-0.8 [facility] Comment on above: Performed By: #### C BC #### [address] Monocytes/100 WBC (Bld) 8.6 % Normal . [facility] Comment on above: Performed By: #### C BC #### [facility] [address] [place] [address] [place] Neutrophils (Bld) [#/Vol] 7.0 10*3/uL Normal 1.8-7.7 [facility] Comment on above: Performed By: #### C BC #### [facility] [address] [place] [address] [place] Neutrophils/100 WBC (Bld) 68.8 % Normal . [facility] Comment on above: Performed By: #### C BC #### [facility] [address] [place] [address] [place] NRBC% 0.0 /100{WBC} Normal 0-0.5 [facility] Comment on above: Performed By: #### C BC #### [facility] [address] [place] [address] [place] Platelet mean volume (Bld) [Entitic vol] 7.5 fL Normal 6.6-10.1 The [facility] Comment on above: Performed By: #### C BC #### [facility] [address] [place] [address] [place] Platelets (Bld) [#/Vol] 197 10*3/uL Normal 150-450 [facility] Comment on above: Performed By: #### C BC #### [facility] [address] [place] [address] [place] RBC (Bld) [#/Vol] 5.05 10*6/uL Normal 3.90-5.60 [facility] Comment on above: Performed By: #### C BC #### [facility] [address] [place] [id number] [place] WBC (Bld) [#/Vol] 10.2 10*3/uL Normal 4.1-10.5 [facility] Comment on above: Performed By: #### C BC #### [facility] [address] [place] [address] [place] Creatinine [Mass/volume] in Serum or PlasmaOrdered By: Colten France on 05-13-2024 Creatinine [Mass/Vol] Creatinine [Mass/v olume] in Serum or Plasma 0.70-1.30 [facility] ECG 12 lead ECGon 05-13-2024 ECG 12 lead ECG [facility] Main [place] [id number] Electrocardiograph Report Signed Patient: Bill Allen MR#: [id number] 36 : 1950 Acct:[id number] Age/Sex: 73 / M ADM Date: 05/13/24 Loc: Room: Type: [facility] Attending Dr: Colten France DO Ordering [...] previous ECGs available Confirmed by Jimmy Becerril ([id number]) on 05/13/2024 4:41:31 PM Referred By: Electronically Signed By: Jimmy Becerril Transcribed By: MUS Signed By Jimmy Becerril MD 05/13/24 1641 Normal [facility] Eosinophils Auto (Bld) [#/Vo l]Ordered By: Colten France on 05-13-2024 Eosinophils (Bld) [#/Vol] Automated eosinophil count 0.0-0.45 [facility] Eosinophils/100 WBC Auto (Bl d)Ordered By: Colten France on 05-13-2024 Eosinophils/100 WBC (Bld) Automated eosinophil % . [facility] Erythrocyte distribution wid th Auto (RBC) [Ratio]Ordered By: Colten France on 05-13-2024 Erythrocyte distribution width (RBC) [Ratio] Erythrocyte distribution width [Ratio] by Automated count 12.0-14.8 [facility] Glucose [Mass/volume] in Ser um or PlasmaOrdered By: Colten France on 05-13-2024 Glucose [Mass/Vol] Glucose [Mass/volume ] in Serum or Plasma High 70-100 [facility] Comment on above: ADA recommended refe rence rangeRandom Glucose Reference Range is dependent on time and content of last meal. Glucose of more than 200 mg/dL in a nonstressed, ambulatory subject supports the diagnosis of Diabetes Mellitus. Hematocrit Auto (Bld) [Volum e fraction]Ordered By: Colten France on 05-13-2024 Hematocrit (Bld) [Volume fraction] Hematocrit [Volume Fraction] of Blood by Automated count 38.8-50.0 [facility] Hemoglobin [Mass/volume] in BloodOrdered By: Colten France on 05-13-2024 Hemoglobin (Bld) [Mass/Vol] Hemoglobin [Mass/volume] in Blood 13.0-17.0 [facility] Leukocytes [#/volume] correc sneha for nucleated erythrocytes in Blood by Automated counOrdered By: Colten France on 05-13-2024 WBC corrected for nucl RBC Auto (Bld) [#/Vol] Leukocytes [#/volume] corrected for nucleated erythrocytes in Blood by Automated coun 4.1-10.5 [facility] Lymphocytes Auto (Bld) [#/Vo l]Ordered By: Colten France on 05-13-2024 Lymphocytes (Bld) [#/Vol] Lymphocytes [#/volume] in Blood by Automated count 1.00-4.8 [facility] Lymphocytes/100 WBC Auto (Bl d)Ordered By: Colten France on 05-13-2024 Lymphocytes/100 WBC (Bld) Lymphocytes/100 leukocytes in Blood by Automated count . [facility] MCH Auto (RBC) [Entitic mass ]Ordered By: Colten France on 05-13-2024 MCH (RBC) [Entitic mass] MCH [Entitic mass] by Automated count 27.5-35.2 [facility] MCHC Auto (RBC) [Mass/Vol]Or dered By: Colten France on 05-13-2024 MCHC (RBC) [Mass/Vol] MCHC [Mass/volume] by Automated count 32.5-35.6 [facility] MCV Auto (RBC) [Entitic vol] Ordered By: Colten France on 05-13-2024 MCV (RBC) [Entitic vol] MCV [Entitic volume] by Automated count 83.5-101 [facility] Monocytes Auto (Bld) [#/Vol] Ordered By: Colten France on 05-13-2024 Monocytes (Bld) [#/Vol] Automated blood monocyte count High 0.0-0.8 [facility] Monocytes/100 WBC Auto (Bld) Ordered By: Colten France on 05-13-2024 Monocytes/100 WBC (Bld) Automated monocyte % . [facility] Neutrophils Auto (Bld) [#/Vo l]Ordered By: Colten France on 05-13-2024 Neutrophils (Bld) [#/Vol] Neutrophils [#/volume] in Blood by Automated count 1.8-7.7 [facility] Neutrophils/100 WBC Auto (Bl d)Ordered By: Colten France on 05-13-2024 Neutrophils/100 WBC (Bld) Automated neutrophil % . [facility] No Panel InformationOrdered By: Colten France on 05-13-2024 Estimated GFR (CKD-EPI) > 60.0 mL/Min [facility] Creatinine Clearance (Chem N/A [facility] Nucleated erythrocytes [Pres ence] in Blood by Automated countOrdered By: Colten France on 05-13-2024 Nucleated RBC Auto Ql (Bld) Nucleated erythrocytes [Presence] in Blood by Automated count 0-0.5 [facility] Platelet mean volume Auto (B ld) [Entitic vol]Ordered By: Colten France on 05-13-2024 Platelet mean volume (Bld) [Entitic vol] Platelet mean volume [Entitic volume] in Blood by Automated count 6.6-10.1 [facility] Platelets Auto (Bld) [#/Vol] Ordered By: Colten France on 05-13-2024 Platelets (Bld) [#/Vol] Platelets [#/volume] in Blood by Automated count 150-450 [facility] Potassium [Moles/volume] in Serum or PlasmaOrdered By: Colten France on 05-13-2024 Potassium [Moles/Vol] Potassium [Moles/v olume] in Serum or Plasma 3.5-5.1 [facility] RBC Auto (Bld) [#/Vol]Ordere d By: Colten France on 05-13-2024 RBC (Bld) [#/Vol] Erythrocytes [#/volu me] in Blood by Automated count 3.90-5.60 [facility] Serum or plasma anion gap de terminationOrdered By: Cloten France on 05-13-2024 Anion gap [Moles/Vol] Serum or plasma an ion gap determination 6.0-15.0 [facility] Sodium [Moles/volume] in Ser um or PlasmaOrdered By: Colten France on 05-13-2024 Sodium [Moles/Vol] Sodium [Moles/volume ] in Serum or Plasma 136-145 [facility] Urea nitrogen [Mass/volume] in Serum or PlasmaOrdered By: Colten France on 05-13-2024 Urea nitrogen [Mass/Vol] Urea nitrogen [Mass/volume] in Serum or Plasma 7-25 [facility] WBC Auto (Bld) [#/Vol]Ordere d By: Colten France on 05-13-2024 WBC (Bld) [#/Vol] Leukocytes [#/volume ] in Blood by Automated count 4.1-10.5 [facility] No Panel Informationon 05-10 Consent obtained: written (The rationale for Mohs as well as the risks, benefits, and alternatives. The risks of infection, scarring, bleeding, prolonged wound healing, incomplete removal, allergy to anesthesia or meds, nerve injury, and recurrence were addressed.) [place] Protocol: Procedure explained and questions answered to [...] sodium bicarbonate Procedure Details: Biopsy accession number: [id number] Biopsy lab: [facility] Date of biopsy: 02/24/2024 Frozen section biopsy performed: Yes Specimen debulked: Yes Pre-Op diagnosis: basal cell carcinoma BCC subtype: nodular MohsAIQ Surgical site (if tumor spans multiple areas, please select predominant area): mandaen Surgery side: left Surgical site (from skin exam): Left [facility] Pre-operative length (cm): 1.2 Pre-operative width (cm): [...] surgery? Yes When were antibiotics given? post-operative [facility] Panel InformationOrdered By: Lin Gillis on 05-10-2024 [facility]car e CT ABDOMEN PELVIS WO/W CONon 04-19-2024 [place] [address] CT Scan Report Signed Patient: BILL ALLEN MR#: [id number] : 1950 Acct:[id number] Age/Sex: 73 / M ADM Date: 04/19/24 Loc: CT Attending Dr: Micaela Ireland M.D. Ordering Physician: Micaela Ireland M.D. Date of Service: 04/19/24 Procedure(s): CT abdomen pelvis wo/w con Accession Number(s): [id number] cc: Dayron Cervantes M.D. [address] [address] Patient Name: BILL ALLEN MRN: [id number] date: 1950 Sex: M Assigned Patient Location: CT Current Patient Location: CT Accession/Order Number: [id number] Exam Date: 04/19/2024 10:24 Report Date: 04/19/2024 [...] Signed By: 04/19/24 1327 DD/ 1325 TD/TT: Alligator Trapper: [facility] Radiology, Radiologi MD evaristo - 04/19/2024 [place] [address] CT Scan Report Signed Patient: BILL ALLEN MR#: [id number] : 1950 Acct:[id number] Age/Sex: 73 / M ADM Date: 04/19/24 Loc: CT Attending Dr: Micaela Irleand M.D. Ordering Physician: Micaela Ireland M.D. Date of Service: 04/19/24 Procedure(s): CT abdomen pelvis wo/w con Accession Number(s): [id number] cc: Dayron Cervantes M.D. [address] [address] Patient Name: BILL ALLEN MRN: [id number] date: 1950 Sex: M Assigned Patient Location: CT Current Patient Location: CT Accession/Order Number: [id number] Exam Date: 04/19/2024 10:24 Report Date: 04/19/2024 [...] Signed By: 04/19/24 1327 DD/ 1325 TD/TT: Alligator Trapper: [facility] Radiology Study observation (narrative) [facility] CT ABDOMEN PELVIS WO/W Zenobia dered By: Radiologist Radiology on 04-19-2024 [facility] [employer] Work Phone: [facility] Urine Cyt [facility] ([facility])on 04-18-2024 [facility] Diagnosis Info Invalid Interpretation Code [facility] Comment on above: Result Comment: A:Ur ine,Urine:Voided [...] with cytology and cystoscopy results. * CPT: 89348, 52799. Microscopic Notes - Microscopic Notes - Abnormal cells 9p21 deletions: Abnormal cells aneploid events: 4 Total cells analyzed: 29 Hematuria: Gross Description Site ID:A color Yellow fixative Alcohol Received 100 mls of clear yellow fluid with the patient's name and, Urine on the vial. Electronically signed by : on: 04/18/2024 11:44:36 Performed By: #### 1 [id number] #### [facility] [address] [place] [address] Ambulatory Visit Summaryon 0 04-11-2024 Ambulatory Visit Summary Ambulatory Visit Summary BILL ALLEN :1950 Visit Date:04/11/2024 Ambulatory Visit Instructions Your Diagnosis Gross hematuria Nocturia Kidney stones ED (erectile dysfunction) Tests Performed CT Urogram -- Results Pending -- Please visit your patient portal for your results or contact your primary care physician. Your Care Team Attending Physician - BEKA CROCKETT, Micaela Carpenter Primary Care Physician - DAYRON CERVANTES MD Referring Physician - DAYRON CERVANTES MD Discharge Vitals Temperature (Oral) 36.2 ???C Heart Rate (Peripheral) 84 Blood Pressure 134/86 Height 175 cm Height 69 in Weight 100 kg Weight 220.462 lb BMI 32.65 What to do next You Need to Schedule the Following Appointments Follow Up with BEKA CROCKETT, MAID Vera When: Where: [facility] [address] [place] [phone] Allergies No Known Allergies Problems Ongoing - [...] including vitamins, herbs, eye drops, creams, and lxfs-oaz-rlfajfp medicines. ??? Any problems you or family [...] tells you to take them. ??? Taking bxwl-vek-onjircm medicines, vitamins, herbs, and supplements. Tests You [...] and hospita (more content not included)... Normal [facility] Fish and Urine Cyt o ([facility])on 04-11-2024 [facility] Method of Extraction Voided Normal [facility] Comment on above: Performed By: #### 1 [id number] #### [facility] [address] [place] [address] [facility] Number of Jars 1 Invalid Interpretation Code [facility] Comment on above: Performed By: #### 1 [id number] #### [facility] [address] [place] [address] [facility] Specimen Urine Normal [facility] Comment on above: Performed By: #### 1 [id number] #### [facility] [address] [place] [address] [facility] Type of Service Technical Only Normal [facility] Comment on above: Performed By: #### 1 [id number] #### [facility] [address] [place] [address] Urology Office/Clinic Noteon 04-11-2024 Urology Office/Clinic Note Urology Office/Clinic Note Chief Complaint referal for gross hematuria HPI Staff 73yr old male pt referred by Dayrno Cervantes MD for gross hematuria. Pt seen [...] this time. Follow-up With When Contact Information Micaela IRELAND MD, L [facility] [address], [place] [address]- [phone] Additional Instructions: sched cysto and CTU Patient [...] History Alcoho (more content not included)... Normal [facility] Comment on above: Result Comment: Elec tronically Signed By: Micaela IRELAND MD\.br\Date and Time Signed: 04/11/24 14:18 EST\.br\Electronically Co-Signed By: Brittni Murray\.br\Date and Time Co-Signed: 04/11/24 14:15 EST URINE CULTURE, ROUTINEon Bacteria identified Cx Nom (U) Urine Culture, Routine [facility] Bacteria identified Cx Nom (U) Culture shows less than 10,000 colony forming units of bacteria per [facility] Bacteria identified Cx Nom (U) milliliter of urine. This colony count is not generally considered [facility] Bacteria identified Cx Nom (U) to be clinically significant. [facility] Bacteria identified Cx Nom (U) Performed at: [facility] Bacteria identified Cx Nom (U) [address] [place], [place] [id number] [facility] Bacteria identified Cx Nom (U) Termite Treater: Miguel Ángel Perea PhD, Phone: [phone] [facility] HbA1c (Bld) [Mass fraction]o n 03-31-2024 Interpretation and review of laboratory results Abnormal [facility] - Hematology and Cell countson 03-31-2024 HbA1c (Bld) [Mass fraction] 6 % [facility] Urinalysis macro (dipstick) panel (U)on 03-31-2024 Bilirubin, UA Few Negative - 4(70) +++ mg/dL [facility] Blood, UA Positive Negative - 50 [place]/mcL [facility] Clarity, UA Cloudy [facility] Healthca re Color, UA Red [facility] Glucose, UA Positive Negative - 2000(110) ++++ mg/dL [facility] Interpretation and review of laboratory results Abnormal [facility] Ketones, UA Negative Negative - 160(16) ++++ mg/dL [facility] Leukocytes, UA Negative Negative - 500+++ Robbie/mcL [facility] Nitrite, UA Negative Negative - Positive [facility] pH, UA 5.5 5 - 9 [facility] Protein, UA Moderate Negative - 2000(20) ++++ mg/dL [facility] Spec Grav, UA 1.02 1 - 1.03 [facility] Urobilinogen, UA 0.2 0.2 - 12 mg/dL [facility] Urine Cultureon 03-19-2024 Bacteria identified Cx Nom (U) <9,000 colonies/ml mixed bacterial skin contaminants 2 Days PERFORMED BY: [place] [address] PATHOLOGIST RESPIRATORY SCIENTIST MELISSA AMBROCIO M.D. Normal [facility] Comment on above: Performed By: #### C UU #### [address] Urine cultureOrdered By: Andrés Berrios on 03-19-2024 Bacteria identified Cx Nom (U) Urine culture [facility] Bacteria identified Cx Nom (U) Urine culture [facility] No Panel Informationon 02-23 Type of [...] taken Amount of lidocaine used: 0.6 cc [facility] [employer] No Panel InformationOrdered By: Jody Romero on 02-24-2024 [facility] Healthcar e SRMCO PROTHROMBIN TIME INR W/O COUMon 02-23-2024 Interpretation and review of laboratory results Abnormal [facility] PT Coag (PPP) [Time] 28.3 s High [facility] INR 2.97 [facility] Healthcar e Comment on above: DESIRED INR: 2.0-3.0 CONDITIONS NOT LISTED BELOW 2.5-3.5 FOR PROSTHETIC HEART VALVE REPLACEMENT 2.5-3.5 RECURRENT THROMBOSIS [facility] Healthcar e SRMCOH PROTHROMBIN TIME INR W/O COUMon 01-27-2024 Interpretation and review of laboratory results Abnormal [facility] PT Coag (PPP) [Time] 22.4 s High [facility] TB INR 2.29 [facility] Healthcar e Comment on above: DESIRED INR: 2.0-3.0 CONDITIONS NOT LISTED BELOW 2.5-3.5 FOR PROSTHETIC HEART VALVE REPLACEMENT 2.5-3.5 [facility] SRMCOH PROTHROMBIN TIME INR W/O COUMon 12-16-2023 Interpretation and review of laboratory results Abnormal [facility] PT Coag (PPP) [Time] 29.3 s High [facility] INR 3.09 [facility] Healthcar e Comment on above: DESIRED INR: 2.0-3.0 CONDITIONS NOT LISTED BELOW 2.5-3.5 FOR PROSTHETIC HEART VALVE REPLACEMENT 2.5-3.5 RECURRENT [facility]BOSIS [facility] e SRMCOH PROTHROMBIN TIME INR W/O COUMon 11-05-2023 Interpretation and review of laboratory results Abnormal [facility] PT Coag (PPP) [Time] 26.3 s High [facility] TB INR 2.74 [facility] Comment on above: DESIRED INR: 2.0-3.0 CONDITIONS NOT LISTED BELOW 2.5-3.5 FOR PROSTHETIC HEART VALVE REPLACEMENT 2.5-3.5 RECURRENT THROMBOSIS [facility] ECG 12 leadon 09-30-2023 [employer] XR lumbar spine 6V w bending on 09-18-2023 XR lumbar spine 6V w bending [facility] [place] [address] XRay Report Signed Patient: Bill Allen MR#: [id number] 36 : 1950 Acct:[id number] Age/Sex: 73 / M ADM Date: 09/18/23 Loc: X Room: Type: [facility] Attending Dr: Izabela Blackburn MD Copies [...] Encinas Jr., D.OChaitanya09/18/2023 3:18 PM Dictation Location: [place] [address] Transcribed By: [facility] 09/18/23 1518 Dictated By: Guille Encinas Jr, DO 09/18/23 1517 Signed By: 09/18/23 1518 Normal [facility] MR lumbar spine wo conon MR lumbar spine wo con [facility] Main [place] [address] [place] [address] MRI Report Signed Patient: Bill Allen MR#: [id number] [birth year] : 1950 Acct:[id number] Age/Sex: 72 / M ADM Date: 07/23/23 Loc: MR Room: Type: [facility] Attending Dr: Stanley Gregory II, MD [...] Leland Murillo M.D.07/23/2023 3:18 PM Dictation Location: [place] [address] Transcribed By: [facility] 07/23/23 151 Dictated By: Leland Murillo II, MD 07/23/23 151 Signed By: 07/23/23 1518 Normal [facility] XR hip BI w [id number] 07-15-19 XR hip BI w [id number] [facility] [address] [place] [address] XRay Report Signed Patient: Bill Allen MR#: [id number] [birth year] : 1950 Acct:[id number] Age/Sex: 72 / M ADM Date: 07/15/23 Loc: [facility] Room: Type: [facility] Attending Dr: Stanley Gregory II, MD [...] Irving Saldivar M.D.07/15/2023 10:09 AM Dictation Location: [place] [address] Transcribed By: [facility] 07/15/23 1009 Dictated By: Irving Saldivar DO 07/15/23 1008 Signed By: 07/15/23 1009 Normal [facility] XR lumbar spine AP/LAT/FLX/E XTon 07-15-2023 XR lumbar spine AP/LAT/FLX/EXT [facility] [address] [place] [address] XRay Report Signed Patient: Bill Allen MR#: [id number] 36 : 1950 Acct:[id number] Age/Sex: 72 / M ADM Date: 07/15/23 Loc: [facility] Room: Type: [facility] Attending Dr: Stanley Gregory II, MD [...] Vicky Hill M.D.07/15/2023 1:59 PM Dictation Location: [place] [address] Transcribed By: [facility] 07/15/23 1359 Dictated By: Vicky Hill MD 07/15/23 1357 Signed By: 07/15/23 1359 Normal [facility] PROTIMEon 07-17-2022 INR Coag (PPP) [Relative time] 2.75 {INR} Normal [facility] Comment on above: Performed By: #### P T #### [facility] [address] [place] [address] Dr. Roya Matrin INR GUIDELINES SEE BELOW Normal [facility] Comment on above: Result Comment: ZANDER RED INR: 2.0 - 3.0 CONDITIONS NOT LISTED BELOW 2.5 - 3.5 FOR PROSTHETIC HEART VALVE REPLACEMENT 2.5 - 3.5 RECURRENT THROMBOSIS Performed By: #### P T #### [facility] [address] [place] [address] Dr. Roya Martin PT Coag (PPP) [Time] 27.5 s Critically high 9.0-11.6 [facility] Comment on above: Performed By: #### P T #### [facility] [address] [place] [address] [address] Roya Martin PROTIMEon 06-04-2022 INR Coag (PPP) [Relative time] 2.97 {INR} Normal [facility] Comment on above: Performed By: #### P T #### [facility] [address] [place] [address] Dr. Roya Martin INR GUIDELINES SEE BELOW Normal [facility] Comment on above: Result Comment: ZANDER RED INR: 2.0 - 3.0 CONDITIONS NOT LISTED BELOW 2.5 - 3.5 FOR PROSTHETIC HEART VALVE REPLACEMENT 2.5 - 3.5 RECURRENT THROMBOSIS Performed By: #### P T #### [facility] [address] [place] [address] Dr. Roya Martin PT Coag (PPP) [Time] 29.6 s Critically high 9.0-11.6 [facility] Comment on above: Performed By: #### P T #### [facility] [address] [place] [address] Dr. Roya Martin PROTIMEon 04-03-2022 INR Coag (PPP) [Relative time] 3.40 {INR} Normal [facility] Comment on above: Performed By: #### P T #### [facility] [address] [place] [address] Dr. Roya Martin INR GUIDELINES SEE BELOW Normal [facility] Comment on above: Result Comment: ZANDER RED INR: 2.0 - 3.0 CONDITIONS NOT LISTED BELOW 2.5 - 3.5 FOR PROSTHETIC HEART VALVE REPLACEMENT 2.5 - 3.5 RECURRENT THROMBOSIS Performed By: #### P T #### [facility] [address] [place] [address] Dr. Roya Martin PT Coag (PPP) [Time] 33.6 s Critically high 9.0-11.6 [facility] Comment on above: Performed By: #### P T #### [facility] [address] [place] [address] Dr. Roya Martin PROTIMEon 01-06-2022 INR Coag (PPP) [Relative time] 2.45 {INR} Normal [facility] Comment on above: Performed By: #### P T #### [facility] [address] [place] [address] Dr. Roya Martin INR GUIDELINES SEE BELOW Normal [facility] Comment on above: Result Comment: ZANDER RED INR: 2.0 - 3.0 CONDITIONS NOT LISTED BELOW 2.5 - 3.5 FOR PROSTHETIC HEART VALVE REPLACEMENT 2.5 - 3.5 RECURRENT THROMBOSIS Performed By: #### P T #### [facility] [address] [place] [address] Dr. Roya Martin PT Coag (PPP) [Time] 25.0 s Critically high 9.0-11.6 [facility] Comment on above: Performed By: #### P T #### [facility] [address] [place] [address] CHEST HI RESOLUTIONon [...] KELY TAYLOR Date: 2021-11-27 08:56 Normal [facility] HEMOGLOBINon 11-27-2021 Hemoglobin (Bld) [Mass/Vol] 15.4 g/dL Normal 14.0-18.0 [facility] Comment on above: Performed By: #### H GB #### [facility] [address] [place] [address] Dr. Roya Martin PROTIMEon 11-14-2021 INR Coag (PPP) [Relative time] 2.28 {INR} Normal [facility] Comment on above: Performed By: #### P T #### [facility] [address] [place] [address] Dr. Roya Martin INR GUIDELINES SEE BELOW Normal [facility] Comment on above: Result Comment: ZANDER RED INR: 2.0 - 3.0 CONDITIONS NOT LISTED BELOW 2.5 - 3.5 FOR PROSTHETIC HEART VALVE REPLACEMENT 2.5 - 3.5 RECURRENT THROMBOSIS Performed By: #### P T #### [facility] [address] [place] [address] Dr. Roya Martin PT Coag (PPP) [Time] 23.3 s Critically high 9.0-11.6 [facility] Comment on above: Performed By: #### P T #### [facility] [address] [place] [address] Dr. Roya Martin PROTIMEon 09-09-2021 INR Coag (PPP) [Relative time] 2.70 {INR} Normal [facility] Comment on above: Performed By: #### P T #### [facility] [address] [place] [address] Dr. Roya Martin INR GUIDELINES SEE BELOW Normal [facility] Comment on above: Result Comment: ZANDER RED INR: 2.0 - 3.0 CONDITIONS NOT LISTED BELOW 2.5 - 3.5 FOR PROSTHETIC HEART VALVE REPLACEMENT 2.5 - 3.5 RECURRENT THROMBOSIS Performed By: #### P T #### [facility] [address] [place] [address] Dr. Roya Martin PT Coag (PPP) [Time] 27.3 s Critically high 9.0-11.6 [facility] Comment on above: Performed By: #### P T #### [facility] [address] [place] [address] Dr. Roya KENDALLon 04-16-2017 FAIZA Office Visit (JUSTIN) BILL ALLEN ([id number]) 1950 MDate Time Provider Department04/16/17 11:30 AM CHARBEL ZUÑIGA During your visit today, we recorded the following information about you: Pulse Respiration Blood pressure Weight 72/minute 18/minute 125/74 99.3 kg Height 1.778 Aurea Zuñiga MD 04/16/2017 11:49 AM SignedHighland District Hospitalrt and Vascular InstituteGratis and Maris Napier Department of Cardiovascular MedicineOUTPATIENT VISIT DATE04/16/17OUTPATIENT VISIT TYPEEstablishedPRIMARY CARE PHYSICIAN:Juliet Bolanos, HT1635 [facility] [address]Xcpdy: [phone]: [phone] COMPLAINT:PalpitationsHI STORY OF PRESENT ILLNESS: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 [...] 99.3 kg (219lb) SpO2 98% BMI 31.42 kg/b8Tfbrqjj: Well appearing, in no acute distress. ObeseNeuro: [...] 01/08/16 [place], stage 1 diastology, no [id number] day monitor 02/14/16inus, rare PACs, frequent PVCs [...] and V[facility] InstituteSelect [facility] [place], [place] [address]Khqnss: [phone] Referring Provider: JULIET BOLANOS [[id number]]Allergies As of Date: 04/16/2017(No Known Allergies)Date Reviewed: [...] 11:29 AM >> KELLY HUITRON [facility] Apr 16, 2017 11:29 AM Received [...] to improve.Follow-up and Disposition History RecordedEncounter Number: [id number] Status:Closed by CHARBEL ZUÑIGA MD on 04/16/17 [facility] PROGRESSon 04-13-2017 PROGRESS HNO ID: [id number]: Charbel ZuñigaService: (none)Author Type: PhysicianType: Progress NotesFiled: 04/16/2017 11:49 AMNote Text:Heart and Vascular InstituteRobmesilla valley hospital and Maris Santos Department of Cardiovascular MedicineOUTPATIENT VISIT DATE04/16/17OUTPATIENT VISIT TYPEEstablishedPRIMARY CARE PHYSICIAN:Juliet Bolanos, KL8833 [facility] [address]Dyakd: [phone]: [phone] COMPLAINT:PalpitationsHI STORY OF PRESENT ILLNESS: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 [...] 99.3 kg (219lb) SpO2 98% BMI 31.42 kg/x8Vhpddfc: Well appearing, in no acute distress. ObeseNeuro: [...] 01/08/16 [place] 55, stage 1 diastology, no [id number] day monitor 02/14/16inus, rare PACs, frequent PVCs [...] or concerns.Charbel Zuñiga M.D.Joel NapierDepartment of Cardiovascular MedicineHighland District Hospitalrt and Vascular Institute[address] [place], [place] [address]Rfzaat: [phone] [facility] Vital Signs Date Time Vital Sign Value Performing Clinician Facility 05-25-2024 14:08-0400 Body height 175.3 cm Michael Thornton DO Work Phone: [facility] 05-25-2024 14:08-0400 Body mass index (BMI) [Ratio] 32.49 kg/m2 Michael Thornton DO Work Phone: [facility] 05-25-2024 14:08-0400 Body weight 99.79 kg Michael Thornton DO Work Phone: [facility] 05-18-2024 18:25-0500 Diastolic blood pressure 68 mm[Hg] Dayron Cervantes MD Work Phone: [facility] [place] [facility] 05-18-2024 18:25-0500 Heart rate 79 /min Dayron Cervantes MD Work Phone: [facility] [place] [facility] 05-18-2024 18:25-0500 Respiratory rate 16 /min Dayron Cervantes MD Work Phone: [facility] [place] [facility] 05-18-2024 18:25-0500 SaO2% (BldA) [Mass fraction] 95 % Dayron Cervantes MD Work Phone: [facility] [place] [facility] 05-18-2024 18:25-0500 Systolic blood pressure 143 mm[Hg] Dayron Cervantes MD Work Phone: [facility] [place] [facility] 05-18-2024 17:25-0500 Inhaled oxygen flow rate 0 L/min Dayron Cervantes MD Work Phone: [facility] [place] [facility] 05-18-2024 17:20-0500 Body temperature 98 [degF] Dayron Cervantes MD Work Phone: [facility] [place] [facility] 05-18-2024 14:49-0500 Body height 175.26 cm Dayron Cervantes MD Work Phone: [facility] [place] [facility] 05-18-2024 14:49-0500 Body weight 100.69 kg Dayron Cervantes MD Work Phone: [facility] [place] [facility] 05-12-2024 08:52-0500 Body height 175.3 cm Colten France DO Work Phone: [facility] 05-12-2024 08:52-0500 Body mass index (BMI) [Ratio] 32.49 kg/m2 Colten France DO Work Phone: [facility] 05-12-2024 08:52-0500 Body weight 99.79 kg Colten France DO Work Phone: [facility] 05-10-2024 16:17-0500 Diastolic blood pressure 85 mm[Hg] Arjun Chung MD Work Phone: [facility] 05-10-2024 16:17-0500 Systolic blood pressure 135 mm[Hg] Arjun Chung MD Work Phone: [facility] 04-11-2024 13:15-0500 Body temperature 97.16 [degF] Micaela IRELAND [facility] 04-11-2024 13:15-0500 Diastolic blood pressure 86 mm[Hg] Micaela IRELAND [facility] 04-11-2024 13:15-0500 Heart rate 84 /min Micaela IRELAND [facility] 04-11-2024 13:15-0500 Systolic blood pressure 134 mm[Hg] Micaela IRELAND [facility] 03-31-2024 09:35-0500 Body height 175.3 cm Dayron Cervantes MD Work Phone: [facility] 03-31-2024 09:35-0500 Body mass index (BMI) [Ratio] 32.49 kg/m2 Dayron Cervantes MD Work Phone: [facility] 03-31-2024 09:35-0500 Body temperature 97.3 [degF] Dayron Cervantes MD Work Phone: [facility] 03-31-2024 09:35-0500 Body weight 99.79 kg Dayron Cervantes MD Work Phone: [facility] 03-31-2024 09:35-0500 Diastolic blood pressure 62 mm[Hg] Dayron Cervantes MD Work Phone: [facility] 03-31-2024 09:35-0500 Heart rate 93 /min Dayron Cervantes MD Work Phone: [facility] 03-31-2024 09:35-0500 Respiratory rate 20 /min Dayron Cervantes MD Work Phone: [facility] 03-31-2024 09:35-0500 SaO2% (BldA) [Mass fraction] 97 % Dayron Cervantes MD Work Phone: [facility] 03-31-2024 09:35-0500 Systolic blood pressure 146 mm[Hg] Dayron Cervantes MD Work Phone: [facility] 02-24-2024 09:01-0500 Body height 175.3 cm Dayron Cervantes MD Work Phone: [facility] 02-24-2024 09:01-0500 Body mass index (BMI) [Ratio] 33.67 kg/m2 Dayron Cervantes MD Work Phone: [facility] 02-24-2024 09:01-0500 Body temperature 97.11 [degF] Dayron Cervantes MD Work Phone: [facility] 02-24-2024 09:01-0500 Body weight 103.42 kg Dayron Cervantes MD Work Phone: [facility] 02-24-2024 09:01-0500 Diastolic blood pressure 62 mm[Hg] Dayron Cervantes MD Work Phone: [facility] 02-24-2024 09:01-0500 Heart rate 78 /min Dayron Cervantes MD Work Phone: [facility] 02-24-2024 09:01-0500 Respiratory rate 20 /min Dayron Cervantes MD Work Phone: [facility] 02-24-2024 09:01-0500 SaO2% (BldA) [Mass fraction] 95 % Dayron Cervantes MD Work Phone: [facility] 02-24-2024 09:01-0500 Systolic blood pressure 142 mm[Hg] Dayron Cervantes MD Work Phone: [facility] 12-16-2023 10:18-0400 Body height 175.3 cm Jose Yen DPM Work Phone: [facility] 12-16-2023 10:18-0400 Body mass index (BMI) [Ratio] 33.23 kg/m2 Jose Yen DPM Work Phone: [facility] 12-16-2023 10:18-0400 Body weight 102.06 kg Jose Yen DPM Work Phone: [facility] 09-29-2023 10: Body height 175.3 cm Pmh 1 [facility] 09-29-2023 10:040 Body mass index (BMI) [Ratio] 32.93 kg/m2 Pmh 1 [facility] 09-29-2023 10:040 Body weight 101.15 kg Pmh 1 [facility] 07-15-2023 09:14040 Body height 175.26 cm MD Dayron Cervantes Work Phone: [facility] [place] [facility] 07-15-2023 09:040 Body mass index (BMI) [Ratio] 33.5 kg/m2 MD Dayron Cervantes Work Phone: [facility] [place] [facility] 07-15-2023 09: Body weight 103.02 kg MD Dayron Cervantes Work Phone: [facility] [place] [facility] Encounters Encounter Date Encounter Type Care Provider Facility Start: 06-20-2024 ambulatory Micaela IRELAND Facili ty:[facility] Start: 06-09-2024 ambulatory Micaela IRELAND Facili ty:[facility] Start: 06-02-2024 ambulatory Micaela Albai ty:[id number] Start: 05-25-2024 End: 05-25-2024 Postop follow up visit related to original px Michael Thornton DO Work Phone: [facility] Comment on above: Mohs defect of templ e region (Primary Dx) Start: 05-25-2024 End: 05-25-2024 ambulatory MICHAEL Xin THORNTON Not Available Start: 05-25-2024 End: 05-25-2024 Bamboo flowsheet Michael Thornton DO Work Phone: [facility] Start: 05-25-2024 End: 05-25-2024 Bamboo flowsheet Michael Thornton DO Work Phone: [facility] Start: 05-24-2024 End: 05-24-2024 Clinisync Result Encounter Generic External Data Provider [facility] External Department Unsolicited Start: 05-24-2024 End: 05-24-2024 Clinisync Result Encounter Generic External Data Provider [facility] External Department Unsolicited Start: 05-18-2024 End: 05-18-2024 Admission to same day surgery center Dayron Cervantes MD Work Phone: [facility] [place] Start: 05-18-2024 End: 05-18-2024 ambulatory Dayron Cervantes MD Work Phone: [facility] Work Phone: Start: 05-16-2024 End: 05-16-2024 ambulatory Micaela IRELAND Facility:[id number] Start: 05-13-2024 End: 05-13-2024 External Result Encounter Colten France DO Work Phone: [facility] Unsolicited Start: 05-13-2024 End: 05-13-2024 External Result Encounter Colten France DO Work Phone: [facility] Unsolicited Start: 05-13-2024 End: 05-13-2024 Patient encounter procedure Dayron Cervantes MD Work Phone: [facility] Work Phone: Start: 05-13-2024 End: 05-13-2024 ambulatory Dayron Cervantes MD Work Phone: [facility] Work Phone: Start: 05-13-2024 Encounter for preprocedural laboratory examination Colten France [facility] Start: 05-12-2024 End: 05-12-2024 Bamboo flowsheet Colten France DO Work Phone: [facility] Start: 05-12-2024 End: 05-12-2024 Bamboo flowsheet Colten France DO Work Phone: [facility] Start: 05-12-2024 End: 05-12-2024 Office outpatient new 45 minutes Colten France DO Work Phone: [facility] [place] Comment on above: Mohs defect of foreh ead (Primary Dx) Start: 05-12-2024 End: 05-12-2024 ambulatory COLTEN Olson ROMÁN Not Available Start: 05-10-2024 End: 05-10-2024 Patient encounter procedure Arjun Chung MD Work Phone: [facility] Comment on above: Basal cell carcinoma (BCC) of left mandaen region (Primary Dx); Skin neoplasm Start: 05-10-2024 End: 05-10-2024 ambulatory ARJUN CHUNG Not Available Start: 04-19-2024 End: 04-19-2024 Clinisync Result Encounter Generic External Data Provider [facility] External Department Unsolicited Start: 04-19-2024 End: 04-19-2024 Clinisync Result Encounter Generic External Data Provider [facility] External Department Unsolicited Start: 04-11-2024 End: 04-11-2024 ambulatory Micaela IRELAND Facility:[facility] Start: 04-11-2024 End: 04-11-2024 Lab Drop off Micaela IRELAND [facility] Start: 04-11-2024 End: 04-11-2024 ambulatory DAYRON CERVANTES Facility:[facility] Start: 04-11-2024 End: 04-11-2024 Patient encounter procedure Micaela IRELAND [facility] Start: 03-31-2024 End: 03-31-2024 Bamboo flowsheet [...] 03-19-2024 ambulatory Dayron Cervantes MD Work Phone: [facility] Work Phone: Start: 03-19-2024 End: 03-19-2024 Departed Referred Dayron Cervantes MD Work Phone: [facility] Start: 02-24-2024 End: 02-24-2024 Bamboo flowsheet [...] Unsolicited Start: 02-09-2024 End: 02-09-[address] [facility] Work Phone: [facility] Start: 02-09-2024 End: 02-09-[address] [facility] Work Phone: [facility] Start: 02-09-2024 End: 02-09-2024 Office outpatient new [address] [facility] Work Phone: [facility] Comment on above: Neoplasm of skin (Pr imary Dx); Seborrheic keratosis; Actinic keratosis Start: 02-09-2024 End: 02-09-2024 ambulatory [facility] Not Available Start: 01-27-2024 End: 01-27-2024 Clinisync Result Encounter Dayron Cervantes MD Work Phone: [facility] Unsolicited Start: 01-27-2024 End: 01-27-2024 Clinisync Result Encounter Dayron Cervantes MD Work Phone: [facility] Unsolicited Start: 12-16-2023 End: 12-16-2023 Bamboo flowsheet Jose Yen DPM Work Phone: [facility] Start: 12-16-2023 End: 12-16-2023 Bamboo flowsheet Joseiron Yen DPM Work Phone: [facility] Start: 12-16-2023 End: 12-16-2023 Clinisync Result Encounter Dayron Cervantes MD Work Phone: [facility] Unsolicited Start: 12-16-2023 End: 12-16-2023 Office outpatient new 30 minutes Jose Olson Cirilo DPM Work Phone: [facility] Comment on above: Hammer toe of [...] 10-20-2023 Evaluation and management of inpatient [facility] Start: 10-20-2023 End: 10-20-2023 Evaluation and management of inpatient JOANNA FRAUSTO [facility] Start: 10-16-2023 End: 10-16-2023 ambulatory STACI OMER Not Available Start: 10-01-2023 End: 10-01-2023 ambulatory STACI KAN Not Available Start: 09-29-2023 End: 09-29-2023 Patient encounter procedure [facility] Pre-Admission Testing 1 [facility] - Pre [facility] Comment on above: Preop examination (P rimary Dx); Anticoagulated Start: 09-29-2023 End: 09-29-2023 Preprocedural examination done Pm 1 [facility] Start: 09-29-2023 End: 09-29-2023 ambulatory KELY Bateman KAYLA [facility] Start: 09-29-2023 Encounter for other preprocedural examination [facility] Start: 09-18-2023 End: 09-18-2023 Patient encounter procedure MD Dayron Cervantes Work Phone: [facility] [place] Work Phone: Start: 09-18-2023 End: 09-18-2023 ambulatory MD Dayron Cervantes Work Phone: [facility] Work Phone: Start: 09-04-2023 End: 09-04-2023 ambulatory DAYRON CERVANTES Not Available Start: 07-23-2023 End: 07-23-2023 Patient encounter procedure MD Dayron Cervantes Work Phone: [facility] [place] Work Phone: Start: 07-23-2023 End: 07-23-2023 ambulatory MD Dayron Cervantes Work Phone: [facility] Work Phone: Start: 07-15-2023 End: 07-15-2023 ambulatory Stanley Gregory II Facility:[facility] [place] [facility] Start: 07-15-2023 End: 07-15-2023 Patient encounter procedure MD Dayron Cervantes Work Phone: [facility] Work Phone: Start: 07-17-2022 End: 07-18-2022 [...] Facility:[facility] Start: 04-16-2017 End: 04-22-2017 Ambulatory [facility]BEL [facility] Procedures Date Procedure Procedure Detail Performing Clinician Start: 05-24-2024 ALL CBC WITH AUTO DIFF Generic External Data Provider Start: 05-18-2024 Excision of lesion o f juan aek Dayron Cervantes MD Work Phone: Start: 05-13-2024 Basic metabolic pane l calcium [...] Td Vaccines (2 - Td or Tdap) [facility] Start: 09-15-2026 Screening for malignant neoplasm of colon [facility] Start: 06-23-2024 End: 06-23-2024 Patient encounter procedure 06/23/2024 10:45 AM EDT Office Visit [facility] [address] [place] [address] Colten France, DO [address] [place] [address] [facility] [place] Start: 06-06-2024 End: 06-06-2024 Patient encounter procedure 06/06/2024 1:30 PM EDT Office Visit [facility] [address] [place] [address] Meena Moss MD [address] [place] [address] [facility] Start: 05-26-2024 End: 05-26-2024 Patient encounter procedure 05/26/2024 10:30 AM EDT Office Visit [facility] [address] [place] [address] Dayron Cervantes MD [address] [place] [phone] [facility] Start: 05-25-2024 End: 05-25-2024 Patient encounter procedure [facility] Comment on above: Arrived Start: 05-18-2024 [facility] [place] [facility] Start: 05-18-2024 End: 05-18-2024 Patient encounter procedure 05/18/2024 9:30 AM EST Office Visit [facility] [address] [place] [address] Dayron Cervantes MD [address] [place] [phone] [facility] Start: 05-12-2024 End: 05-12-2024 Patient encounter procedure [facility] Comment on above: Arrived Start: 05-10-2024 End: 05-10-2024 Patient encounter procedure 05/10/2024 1:30 PM EST Office Visit [facility] [address] [place] [phone] Arjun Chung MD [address] [place], [place] [phone] [facility] Start: 03-31-2024 End: 03-31-2024 Patient encounter procedure 03/31/2024 9:30 AM EST Office Visit [facility] [address] [place] [phone] Dayron Cervantes MD [address] [place] [phone] Arrived [facility] Comment on above: Arrived Start: 03-19-2024 Bacteria identified in Urine by Culture Urine Culture [facility] Start: 03-19-2024 Urine culture [facility] Start: 02-24-2024 End: 02-24-2024 Patient encounter procedure [facility] Comment on above: Arrived Start: 02-09-2024 End: 02-09-2024 Patient encounter procedure 02/09/2024 2:00 PM EST Office Visit [facility] [address] [place] [phone] Ana Osullivan PA [address] [place] [phone] [facility] Start: 12-16-2023 End: 12-16-2023 Patient encounter procedure [facility] Comment on above: Arrived Start: 11-25-2023 End: 11-25-2023 ambulatory [facility] Comment on above: Arrived Start: 11-19-2023 End: 11-19-2023 ambulatory 11/19/2023 10:30 AM EDT Treatment [facility] [address] [place] [address] Staci Omer, PT [facility] Start: 11-15-2023 Influenza vaccination [facility] Start: 11-11-2023 End: 11-11-2023 ambulatory 11/11/2023 9:30 AM EDT Treatment [facility] [address] [place] [phone] Staci Omer, PT [facility] Start: 10-20-2023 End: 10-20-2023 Admission to same day surgery center 10/20/2023 3:00 PM EDT - 10/20/2023 4:00 PM EDT Surgery [facility] - Surgery [address] [place] [phone] Joanna Frausto MD [address] [place] [address] BLEPHAROPLASTY [37234 (CPT )] [facility] Comment on above: BLEPHAROPLASTY [62256 (CPT )] Start: 10-20-2023 End: 10-20-2023 Blepharoplasty upper eyelid BLEPHAROPLASTY bilateral ptosis 10/20/2023 3:00 PM EDT [facility] Start: 10-20-2023 Subsequent hospital visit by physician 10/20/2023 3:00 PM EDT Hospital Encounter [facility] Surgery [address] [place] [address] Joanna Frausto MD [address] [place] [address] [facility] Start: 10-20-2023 End: 09-28-2024 Protime & INR Protime & INR Lab Routine Preop examination Anticoagulated Expected: 10/20/2023, Expires: 09/28/2024 [place] Work Phone: Comment on above: Expected: 10/20/2023, Expires: Start: 04-27-2023 COVID-19 Vaccine () COVID-19 Vaccine () [facility] Start: 08-15-2015 Fall Risk Screening Fall Risk Screening [facility] Start: 1968 Adult BMI Screening Adult BMI Screening [facility] Start: 1962 Depression Screening Depression Screening [facility] Start: 1962 Tobacco Screening Tobacco Screening [facility] Start: 1950 Medicare Annual Wellness (AWV) Medicare Annual Wellness (AWV) [facility] Start: 1950 Medicare Annual Wellness Visit Medicare Annual Wellness Visit [facility] Start: 1950 Screening for malignant neoplasm of colon [facility] Dermatopathology exam Dermatopat hology exam Pathology and Cytology Timed Neoplasm of unspecified behavior of bone, soft tissue, and skin Release Upon Ordering for 1 Occurrences starting 02/24/2024 [facility] Work Phone: Comment on above: Release Upon Ordering for 1 Occurrences starting 02/24/2024 Patient Education Know your Meds [facility] Work Phone: Patient referral [facility] Work Phone: Immunizations Immunization Date Immunization Notes Care Provider [facility] 12-30-2023 SARS-COV-2 (COVID-19 ) vaccine, mRNA, spike protein, LNP, PF, patricia-sucrose, 30 mcg/0.3 mL Colten France DO Work Phone: [facility] 12-30-2023 Seasonal trivalent influenza vaccine, adjuvanted, preservative free Colten France DO Work Phone: [facility] 09-14-2023 zoster vaccine recombinant Colten France DO Work Phone: [facility] 06-08-2023 zoster vaccine recombinant Colten France DO Work Phone: [facility] 01-13-2023 Pneumococcal Conjuga te PCV 20 Colten France DO Work Phone: [facility] 01-13-2023 RSV, recombinant, protein subunit RSVpreF, adjuvant reconstitu, 120mcg/0.5mL, PF (Arexvy) Colten France DO Work Phone: [facility] 12-25-2022 COVID-19 (PFIZER) 12Y and older Dayron Cervantes MD Work Phone: [facility] 12-25-2022 Influenza, Seasonal, Quadrivalent, Adjuvanted Colten France DO Work Phone: [facility] 12-25-2022 influenza virus vaccine, unspecified formulation Pmh 1 [facility] 12-01-2022 pneumococcal conjuga te 20-valent (Prevnar 20) 0.5 ML vaccine Staci Kan PT [facility] 12-23-2021 Influenza, High-dose Seasonal, Quadrivalent, Preservative Free Colten France DO Work Phone: [facility] 12-02-2021 COVID-19 mRNA Bivale nt Booster (Moderna) Dayron Cervantes MD Work Phone: [facility] 06-24-2021 COVID-19 mRNA-1273 (Moderna) Dayron Cervantes MD Work Phone: [facility] 01-05-2021 COVID-19 mRNA-1273 (Moderna) Dayron Cervantes MD Work Phone: [facility] 05-25-2020 COVID-19 mRNA-1273 (Moderna) Dayron Cervantes MD Work Phone: [facility] 04-27-2020 COVID-19 mRNA-1273 (Moderna) Dayron Cervantes MD Work Phone: [facility] 09-17-2018 tetanus and diphther ia toxoids, adsorbed, preservative free, for adult use (5 Lf of tetanus toxoid and 2 Lf of diphtheria toxoid) Colten France DO Work Phone: [facility] 02-23-2017 influenza, high dose seasonal, preservative-free Colten France DO Work Phone: [facility] 02-23-2017 pneumococcal conjuga te vaccine, 13 valent Colten France DO Work Phone: [facility] 01-15-2016 influenza, seasonal, injectable Colten France DO Work Phone: [facility] 01-10-2016 influenza virus vaccine, unspecified formulation Colten France DO Work Phone: [facility] 11-15-2015 influenza, injectabl e, quadrivalent, preservative free Colten France DO Work Phone: [facility] Healthcare Payers Date Payer Category Payer Self-pay 2021 Private Health Insurance [employer] [id number] 2021 Unknown [id number]. [id number] 2015 Medicare [id number] 1.13.693.2. [id number] 1959 Medicare [id number] 1959 Unknown [id number] 1950 Unknown [id number] 2.16.840.1.676012.3.579.2. 593 1950 Unknown [id number] 2.16.840.1.213193.3.579.2. 593 1950 Unknown [id number] 2.16.840.1.701681.3.579.2. 593 1950 Unknown [id number] 2.16.840.1.028356.3.579.2. 593 1950 Unknown [id number] 2.16.840.1.850404.3.579.2. 593 1950 Unknown [id number] 2.16.840.1.798441.3.579.2. 593 1950 Unknown [id number] 2.16.840.1.273989.3.579.2. 593 1950 Unknown [id number] 2.16.840.1.439574.3.579.2. 1286 1950 Unknown [id number] 2.16.840.1.408753.3.579.2. 1286 1950 Unknown [id number] 2.16.840.1.902071.3.579.2. 1286 1950 Unknown [id number] 2.16.840.1.013174.3.579.2. 1286 1950 Unknown [id number] 2.16.840.1.938502.3.579.2. 1286 1950 Unknown [id number] 2.16.840.1.004163.3.579.2. 727 1950 Unknown [id number] 2.16.840.1.151839.3.579.2. 727 1950 Unknown [id number] 2.16.840.1.280763.3.579.2. 727 1950 Unknown [id number] 2.16.840.1.413664.3.579.2. 727 1950 Unknown [id number] 2.16.840.1.960142.3.579.2. 727 1950 Unknown [id number] 2.16.840.1.904670.3.579.2. 1259 1950 Unknown [id number] 2.16.840.1.263056.3.579.2. 1259 1950 Unknown [id number] 2.16.840.1.973739.3.579.2. 1258 1950 Unknown [id number] 2.16.840.1.930881.3.579.2. 1258 1950 Unknown [id number] 2.16.840.1.278622.3.579.2. 1258 1950 Unknown [id number] 2.16.840.1.939180.3.579.2. 1258 1950 Unknown [id number] 2.16.840.1.497142.3.579.2. 1258 1950 Unknown [id number] 2.16.840.1.300866.3.579.2. 1258 1950 Unknown [id number] 2.16.840.1.718636.3.579.2. 1258 1950 Unknown [id number] 2.16.840.1.795853.3.579.2. 1258 1950 Unknown [id number] 2.16.840.1.414437.3.579.2. 1258 1950 Unknown [id number] 2.16.840.1.224617.3.579.2. 1258 1950 Unknown [id number] 2.16.840.1.403867.3.579.2. 1258 1950 Unknown [id number] 2.16.840.1.261945.3.579.2. 1259 Unknown [id number] 2.16.840.1.169168.3.579.2. 531 Unknown [id number] 2.16.840.1.525350.3.579.2. 531 Unknown [id number] 2.16.840.1.296810.3.579.2. 531 Unknown [id number] 2.16.840.1.731999.3.579.2. 531 Unknown [id number] 2.16.840.1.680575.3.579.2. 531 Unknown [id number] 2.16.840.1.148448.3.579.2. 531 Social History Date Type Detail Facility [facility] Work Phone: Start: 1950 Sex Assigned At Male [facility] Start: 03-04-2023 End: 05-13-2024 Tobacco smoking status NHIS Never smoked tobacco [facility] Start: 03-04-2023 End: 09-29-2023 Tobacco use and exposure Smokeless tobacco non-user [facility] Start: 12-16-2023 End: 05-25-2024 Alcoholic beverage intake Lifetime non-drinker (finding) [facility] Start: 12-16-2023 End: 05-12-2024 History of Social function [facility] Start: 12-16-2023 End: 05-12-2024 Tobacco use panel [facility] Start: 1950 Sex assigned at Not on file [facility] Work Phone: Start: 03-20-2024 Sex Patient sex unknown (finding) [facility] Childcare Unknown [facility] Start: 08-24-2023 Gender identity Identifies as male gender (finding) [facility] Start: 08-24-2023 Sexual orientation Heterosexual (finding) [facility] Start: 05-14-2024 End: 05-18-2024 Sex Male (finding) [facility] Start: 05-18-2024 Tobacco smoking status NHIS Ex-smoker (finding) [facility] Goals Date Patient Goal Desired Activity /State Functional Status Date Assessment Result Facility 04-11-2024 Functional Status N/A [facility] Clinical Notes 09-29-2023 to 05-25-2024 Michael Thornton, - 05/25/2024 2:15 PM Corinne France, - 05/12/2024 8:45 AM Vijay Chung MD - 05/10/2024 1:30 PM John Cervantes MD - 03/31/2024 10:30 AM ESTPatient Instructions Note Date & Type Note Facility 05-25-2024 History of Present illness Narrative HPI Patient presents today 1 week postop repair of a left mandaen Mohs defect by Dr. Hyltonutilizing a flap. He is doing fine. Relevant postoperative physical examination Sutures are removed, flap 100 percent viable and healing nicely. Assessment/plan Bill was seen today for post-op. Diagnoses and all orders for this visit: Mohs defect of mandaen region (Primary) Comments: Patient given wound instructions, he should see Dr. Hare in the next 2 weeks. documented in this encounter [facility] 05-12-2024 History of Present illness Narrative Subjective Patient ID: Bill Allen is a 73 y.o. male who presents for Mohs Reconstruction (New Patient : Mohs left mandaen / BCC) HPI 73-year-old white male presents today for evaluation of Mohs defect of the left mandaen. Patient recently underwent excision of basal cell [...] Rfl: 0 cholecalciferol (Vitamin D-3) 50 MCG (2000 UT) capsule, Take 2,000 Units by mouth in the morning., Disp: , Rfl: coenzyme Q-10 100 MG capsule, Take 1 capsule by mouth 1 (one) time each day at the same time, Disp: , Rfl: Csflbqfpmrn-Vipgctvxo-Flf C-Mn (Glucosamine 1500 Complex) capsule, Take 1 [...] tissue defect of the left forehead and mandaen region. This does approximate the area of [...] serous disability, and documented in this encounter [facility] 05-10-2024 History of Present illness Narrative Images from the original note were not included. Mohs Surgery Location: Left mandaen Date of biopsy: 02/24/2024 Diagnosis: Basal Cell Carcinoma Lesions: Location: Left ear Duration: months Quality: denies itch Associated symptoms: non-healing Treatments: none All pertinent medical history, medications, and allergies were reviewed. General Exam: alert, oriented to person, place, and time, normal affect, well appearing A focused exam completed based on patient reported problems, see below: 1. Basal cell carcinoma (BCC) of left mandaen region Left Advent Waxy, erythematous plaque at the biopsy site. Mohs surgery Consent obtained: written (The rationale for Mohs as well as the risks, benefits, and alternatives. The risks of infection, scarring, bleeding, prolonged wound healing, incomplete removal, allergy to anesthesia or meds, nerve injury, and recurrence were addressed.) [place] Protocol: Procedure explained and questions answered to [...] sodium bicarbonate Procedure Details: Biopsy accession number: [id number] Biopsy lab: [facility] Date of biopsy: 02/24/2024 Frozen section biopsy performed: Yes Specimen debulked: Yes Pre-Op diagnosis: basal cell carcinoma BCC subtype: nodular MohsAIQ Surgical site (if tumor spans multiple areas, please select predominant area): mandaen Surgery side: left Surgical site (from skin exam): Left Advent Pre-operative length (cm): 1.2 Pre-operative width (cm): [...] Next visit: 06/06/2024 documented in this encounter [facility] 04-11-2024 Hospital Discharge instructions Patient Education 04/11/2024 [...] including vitamins, herbs, eye drops, creams, and vmnz-bic-iiiybyn medicines. Any problems you or family members [...] provider tells you to take them. Taking mrjt-jew-ogwkwgm medicines, vitamins, herbs, and supplements. Tests You [...] Follow these instructions at home: Medicines Take nfxk-obm-hefpxyi and prescription medicines only as told by [...] provider. Document Revised: 11/13/2021 Document Reviewed: 10/12/2020 [employer] Patient Education 2023 [employer] 04/11/2024 14:05:12 Hematuria, Adult Hematuria, Adult Hematuria [...] Follow these instructions at home: Medicines Take jybw-gml-zifgxdw and prescription medicines only as told by [...] or the blood stops without treatment. Take wemp-eao-ixlopbq and prescription medicines only as told by your health care provider. Drink enough fluid to keep your urine pale yellow. This information is not intended to replace advice given to you by your health care provider. Make sure you discuss any questions you have with your health care provider. Document Revised: 10/31/2020 Document Reviewed: 10/31/2020 [employer] Patient Education 2023 [employer]. Follow Up Care 04/01/2024 13:45:18 With:BEKA CROCKETT, Micaela Carpenter, MADI Address: [facility] [address] [place] [place] [address]- [phone] When: Unknown [facility] 04-11-2024 Note Patient Education Urology Cystoscopy Cystoscopy [...] including vitamins, herbs, eye drops, creams, and moym-pfd-snwukla medicines. ??? Any problems you or family [...] tells you to take them. ??? Taking mklv-kkt-ykpapxk medicines, vitamins, herbs, and supplements. Tests You [...] these instructions at home: Medicines ??? Take soqj-iow-kdrnovp and prescription medicines only as told by [...] (biopsy) during your (more content not included)... [facility] 04-11-2024 Evaluation + Plan note Diagnostic Tests PendingUroVysion Fish and Urine Cyto ([facility]) 04/11/24 [facility] 03-31-2024 History of Present illness Narrative Associated [...] for possible cystoscopy. documented in this encounter [facility] 02-24-2024 History of Present illness Narrative Images from the original note were not included. Follow up Diagnosis: NUB Location: Left Advent Last visit:02/09/2024 Patient is here for Biopsy today. Established Patient All pertinent medical history, medications, and allergies were reviewed. General Exam: alert, oriented to person, place, and time, normal affect, well appearing Unaccompanied A focused exam completed based on patient reported problems, see below: 1. Neoplasm of unspecified behavior of bone, soft tissue, and skin Left Advent Erythematous papule Lesion biopsy Type of biopsy: [...] pending biopsy results documented in this encounter [facility] 02-24-2024 History of Present illness Narrative Associated [...] follow with ortho. documented in this encounter [facility] 02-09-2024 History of Present illness Narrative Lesions: Location: left mandaen Duration: years Quality: denies pain, denies itch, [...] see below: 1. Neoplasm of skin Left Advent 1.1 x 1.0 cm Erythematous papule Recommended biopsy today. Lesion is suspicious for BCC and biopsy is needed. He would like to return after the holiday for biopsy. Return in 1-2 weeks. Stressed importance of his return for biopsy 2. Seborrheic keratosis Right Advent Stuck on verrucous, variably pigmented papules and [...] and LN2 [place] documented in this encounter [facility] 12-16-2023 History of Present illness Narrative Images from the original note were not included. Subjective Patient ID: Bill Allen is a 73 y.o. 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 Precautions: [place]; h/o blood clots, on thinners Subjective: Pt [...] instructed in home exercise program. - met Half-Way Goals: To be met in 10 weeks [...] to home program. documented in this encounter [facility] 11-11-2023 History of Present illness Narrative Physical [...] difficulty putting on shoes and socks. Precautions: [place]; h/o blood clots, on thinners Subjective: Pt [...] to be instructed in home exercise program. [employer] Goals: To be met in 10 weeks [...] sign below. Date: documented in this encounter [facility] 11-05-2023 History of Present illness Narrative Physical [...] difficulty putting on shoes and socks. Precautions: [place]; h/o blood clots, on thinners Subjective: Pt [...] to be instructed in home exercise program. [employer] Goals: To be met in 10 weeks [...] sign below. Date: documented in this encounter [facility] 09-29-2023 Instructions Ysabel Zapata RN - 09/29/2023 [...] you have a Living Will/Durable Power of Associate Embalmer/Funeral Director for Health Care that is not on file here, please bring a copy the day of surgery. 3. Please wash your face with baby shampoo prior to procedure as instructed by your physician. 4. NO powder, lotion, perfume/cologne, aftershave, make-up, nail pakistani on at least one finger, deodorant, or [...] please call the Preadmission Testing office at [phone], Mon.-Fri. 7 a.m.-3 p.m. Leave a voicemail [...] 50 mg tablet Take morning of procedure jxfxaddp-azta-QC-calcium &mins (THERAGRAN-M) 9 mg iron-400 mcg tablet Stop taking 0 days prior to procedure omega 4-kxn-qzg-fish oil (Fish OiL) 300-1,000 mg capsule Stop taking 1 week prior to procedure simvastatin (ZOCOR) 20 mg tablet Stop taking 0 days prior to procedure terazosin (HYTRIN) 10 mg capsule Stop taking 0 days prior to procedure warfarin (COUMADIN) 5 mg tablet Check with prescribing doctor for instructions documented in this encounter [facility] 09-29-2023 Miscellaneous Notes Preoperative Education Checklist- General Surgery date: 10/20/23 Surgery time: 3:00 p.m. Arrival time: 1:00 p.m. 1. Bring a photo ID and your insurance card with you the day of surgery. You will check in at the main lobby registration desk as soon as you walk in the entrance. 2. If you have a Living Will/Durable Power of Associate Embalmer/Funeral Director for Health Care that is not on file here, please bring a copy the day of surgery. 3. Please wash your face with baby shampoo prior to procedure as instructed by your physician. 4. NO powder, lotion, perfume/cologne, aftershave, make-up, nail pakistani on at least one finger, deodorant, or [...] please call the Preadmission Testing office at [phone], Mon.-Fri. 7 a.m.-3 p.m. Leave a voicemail [...] 50 mg tablet Take morning of procedure gnabiunr-pznz-GE-calcium &mins (THERAGRAN-M) 9 mg iron-400 mcg tablet Stop taking 0 days prior to procedure omega 0-gah-epw-fish oil (Fish OiL) 300-1,000 mg capsule Stop [...] her office now. documented in this encounter [facility] 09-29-2023 Nurse Note Preoperative Education Checklist- General Surgery date: 10/20/23 Surgery time: 3:00 p.m. Arrival time: 1:00 p.m. 1. Bring a photo ID and your insurance card with you the day of surgery. You will check in at the main lobby registration desk as soon as you walk in the entrance. 2. If you have a Living Will/Durable Power of Associate Embalmer/Funeral Director for Health Care that is not on file here, please bring a copy the day of surgery. 3. Please wash your face with baby shampoo prior to procedure as instructed by your physician. 4. NO powder, lotion, perfume/cologne, aftershave, make-up, nail pakistani on at least one finger, deodorant, or [...] please call the Preadmission Testing office at [phone], Mon.-Fri. 7 a.m.-3 p.m. Leave a voicemail [...] 50 mg tablet Take morning of procedure vhmokwka-tlvh-NC-calcium &mins (THERAGRAN-M) 9 mg iron-400 mcg tablet Stop taking 0 days prior to procedure omega 9-rib-lwl-fish oil (Fish OiL) 300-1,000 mg capsule Stop taking 1 week prior to procedure simvastatin (ZOCOR) 20 mg tablet Stop taking 0 days prior to procedure terazosin (HYTRIN) 10 mg capsule Stop taking 0 days prior to procedure warfarin (COUMADIN) 5 mg tablet Check with prescribing doctor for instructions [facility] 09-29-2023 Nurse Note Surgical instructions reviewed. Patient verbalized understanding. Instructed patient to clarify with Dr Frausto's office about holding his Coumadin prior to surgery as she instructed for 10 days, but anesthesia only requires 5 days. Patient is concerned about developing a blood clot. He is heading to her office now. [facility] Evaluation + Plan note No data available for this section [facility] Evaluation note Diagnosis Onset Date Bilateral primary osteoarthritis of hip acute Spinal stenosis [facility] Work Phone: Evaluation note* Diagnosis Hammer toe of right foot- Primary History of DVT (deep vein thrombosis) documented in this encounter [facility] HealthcareEvaluation note* Diagnosis Benign hypertension (CMS/HCC)- [...] keratosis Actinic keratosis documented in this encounter [facility] note* Diagnosis Benign hypertension (CMS/HCC)- [...] Other premature beats documented in this encounter [facility] note* Diagnosis Benign hypertension (CMS/HCC)- [...] [facility]: Evaluation note* Diagnosis Benign [...] Unspecified pre-operative examination [facility] Diagnosis Benign hypertension (CMS/HCC)- Primary [...] glucose Basal cell carcinoma (BCC) of left mandaen region- Primary Skin neoplasm Neoplasm of unspecified [...] Prediabetes Other abnormal glucose Mohs defect of mandaen region- Primary documented in this encounter [facility] Healthcare[facility]ospital Discharge instructions No data available for this section [facility] Discharge instructions Additional Instructions No exertional activity Apply antibiotic ointment to the wound 3 times per day May shower in 2 days, blot the wound dry and apply ointment Pain medication if needed Apply ice to the wound for pain and swelling, 20-minute intervals Call the office for any questions or concerns Follow-up in the office as scheduled [facility]: [facility] note No data available for this section [facility] Summary Purpose Family History No Family [...] Unknown March 19, 2024 12 :40pm Left Advent Wound May 13, 2024 7:19am Chief Complaint Admit Date Unknown March 19, 2024 12 :40pm Left Advent Wound May 13, 2024 7:19am Left Advent Wound May 18, 2024 2:26 pm Reason for Referral Specialty Diagnoses / Procedures Referred By Contragini t Referred To Contact Diagnoses Preop examination Procedures ECG 12 lead Kely Garza MD [address] [place] [address] Referral ID Status Reason Start Date Expiration Date V isits Requested Visits Authorized [id number] Pending Review 09/23/2023 09/22/2024 1 1 Additional Source Comments (unrecognized sect ion and content) No Status Records FoundNo Status Records FoundNo Status Records FoundNo Status Records FoundNo Status Records FoundNo Status Records FoundNo Status Records Found INFORMATION SOURCE (unrecogn ized section and content) DATE CREATED AUTHOR 09/07/[address] [facility] DATE CREATED AUTHOR AUTHOR'S ORGANIZ ATION 07/24/2022 [facility] DATE CREATED AUTHOR AUTHOR'S ORGANIZ ATION 10/22/2023 [facility] DATE CREATED AUTHOR AUTHOR'S ORGANIZ ATION 04/12/2024 [facility] DATE CREATED AUTHOR AUTHOR'S ORGANIZ ATION 05/27/2024 [facility] DATE CREATED AUTHOR AUTHOR'S ORGANIZ ATION 05/28/2024 [facility] DATE CREATED AUTHOR AUTHOR'S ORGANIZ ATION 05/29/2024 [facility] Care Teams (unrecognized sec tion and [...] September 18, 2023 End: September 18, 2023 Neon Molder Relationship Specialty Start Date End Date Dayron Cervantes MD [address] [place] [id number] PCP - General Family Medicine 09/04/23 Neon Molder Relationship Specialty Start Date End Date Dayron Cervantes MD [address] [place] [phone] PCP - General Family Medicine 09/04/23 Neon Molder Relationship Specialty Start Date End Date Dayron Cervantes MD [address] [place] [phone] PCP - General Family Medicine 09/04/23 Neon Molder Relationship Specialty Start Date End Date Dayron Cervantes MD [address] [place] [phone] PCP - General Family Medicine 09/04/23 Neon Molder Relationship Specialty Start Date End Date Dayron Cervantes MD [address] [place] [phone] PCP - General Family Medicine 09/04/23 Neon Molder Relationship Specialty Start Date End Date Dayron Cervantes MD [address] [place] [phone] PCP - General Family Medicine 09/04/23 Neon Molder Relationship Specialty Start Date End Date Dayron Cervantes MD [address] [place] [phone] PCP - General Family Medicine 09/04/23 Neon Molder Relationship Specialty Start Date End Date Dayron Cervantes MD [address] [place] [address] PCP - General Family Medicine 09/04/23 Neon Molder Relationship Specialty Start Date End Date Dayron Cervantes MD [address] [place] [address] PCP - General Family Medicine 09/04/23 Neon Molder Relationship Specialty Start Date End Date Dayron Cervantes MD [address] [place] [phone] PCP - General Family Medicine 09/04/23 Neon Molder Relationship Specialty Start Date End Date Dayron Cervantes MD [address] [place] [phone] PCP - General Family Medicine 09/04/23 Team Status: Inactive Member Role Status Dates Dayron Cervantes MD Primary Care Provider Active S tart: March 19, 2024 End: March 19, 2024 Kevan Berrios DO Attending Provider Active Start: March 19, 2024 End: March 19, 2024 Neon Molder Relationship Specialty Start Date End Date Dayron Cervantes MD [address] [place] [phone] PCP - General Family Medicine 09/04/23 Neon Molder Relationship Specialty Start Date End Date Dayron Cervantes MD [address] [place] [phone] PCP - General Family Medicine 09/04/23 Neon Molder Relationship Specialty Start Date End Date Dayron Cervantes MD [address] [place] [phone] PCP - General Family Medicine 09/04/23 Neon Molder Relationship Specialty Start Date End Date Dayron Cervantes MD [address] [place], [place] [phone] PCP - General Family Medicine 09/29/23 Neon Molder Relationship Specialty Start Date End Date Dayron Cervantes MD [address] [place] [id number] PCP - General Family Medicine 09/04/23 Dayron Cervantes MD [address] [place] [phone] PCP - ACO Reach 04/22/24 Neon Molder Relationship Specialty Start Date End Date Dayron Cervantes MD [address] [place] [phone] PCP - General Family Medicine 09/04/23 Dayron Cervantes MD [address] [place] [phone] PCP - ACO Reach 04/22/24 Arjun Chung MD [address] [place] [address] Referring Physician Dermatology 05/12/24 Colten France DO [address] [place] [address] Otolaryngology 05/12/24 Neon Molder Relationship Specialty Start Date End Date Dayron Cervantes MD [address] [place] [phone] PCP - General Family Medicine 09/04/23 Dayron Cervantes MD [address] [place] [phone] PCP - ACO Reach 04/22/24 Arjun Chung MD [address] [place], [place] [phone] Referring Physician Dermatology 05/12/24 Colten France DO [address] [place] [address] Otolaryngology 05/12/24 Neon Molder Relationship Specialty Start Date End Date Dayron Cervantes MD [address] [place] [phone] PCP - General Family Medicine 09/04/23 Dayron Cervantes MD [address] [place] [phone] PCP - ACO Reach 04/22/24 Arjun Chung MD [address] [facility] [place] [address] Referring Physician Dermatology 05/12/24 Colten France DO [address] [place] [address] Otolaryngology 05/12/24 Team Status: Inactive Member Role Status Dates Dayron Cervantes MD Primary Care Provider Active S tart: May 13, 2024 End: May 13, 2024 Colten France DO Attending Provider Active S tart: May 13, 2024 End: May 13, 2024 Team Status: Inactive Member Role Status Dates Dayron Cervantes MD Primary Care Provider Active S tart: May 18, 2024 End: May 18, 2024 Colten France DO Attending Provider Active S tart: May 18, 2024 End: May 18, 2024 Neon Molder Relationship Specialty Start Date End Date Dayron Cervantes MD [address] [place] [phone] PCP - General Family Medicine 09/04/23 Dayron Cervantes MD [address] [place] [address] PCP - ACO Reach 04/22/24 Arjun Chung MD [address] [place] [address] Referring Physician Dermatology 05/12/24 Colten France DO [address] [place] [place] [address] Otolaryngology 05/12/24 Goals (unrecognized section and content) Goals may [...] content) Reason Comments Toe Problem 73 yo [employer] presents to day with concerns of a [...] of hip Spinal stenosis, site unspecified Procedures [place] PHYSICAL THERAPY EVALUATION LOW COMPLEX 20 MINS Izabela Blackburn MD [address] [facility], [address] [place] [address] Staci Omer PT Referral ID Status Reason Start Date Expiration Date V isits Requested Visits Authorized [id number] Authorized 09/24/2023 03/22/2024 30 30 Referral ID Status Reason Start Date Expiration Date Visits Re quested Visits Authorized [id number] Closed 09/24/2023 03/22/2024 30 30 Reason Comments Blood in Urine Reason Comments Mohs Micrographic Surgery Suspicious Skin Lesion Reason Comments Mohs Reconstruction New Patient : Mohs l eft mandaen / BCC Reason Comments Post-op FOR RECORDS PERTAINING TO PATIENTS WHO ARE [...] BE BASED ON THE PRIMARY CLINICAL RECORDS. [facility] [employer] [facility]. provides no warranty or guarantee of the accuracy or completeness of information in this document.
[2024-06-02] MEDS: LACTATED RINGER'S SOLUTION 1,000 ML 50 ML IV (11:42)
[2024-06-02] MEDS: CEFAZOLIN SODIUM 2 GM/50 ML D5W PREMIX IV (11:44)
--- NOTE | 2024-06-02 12:41 | P.URON_ITS ---
Urology Surgery Operative Note Operative Note Procedure Date: 06/02/24 Time Out Performed: yes Pre-op Diagnosis: Bladder tumors Post-op Diagnosis: same as pre-op Procedures performed: 1. Cystoscopy. 2. 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 These cover greater than 6 cm. He now presents for cystoscopy and transurethral resection of the 2. He has signed an informed consent after risks were explained. Detailed description of Procedure: The patient was brought to the operating room and placed on the operating room table in the supine position. SCDs were placed on the lower extremities and turned on and functioning during the entire case. Timeout was done by all parties in the room. We all agreed upon the patient's identification and the planned procedures for this patient. Genn. anesthesia was then administered. The patient was then repositioned into the modified dorsal lithotomy position. All pressure points were satisfactorily padded. Genitalia were sterilely prepped and draped in usual fashion. I started by passing a 26 [place] Olympus resectoscope with a standard bipolar loop electrode per urethra and into the bladder. A bulbar stricture was noted but I was able to get the scope through it. He had a high median lobe and obstructing lateral lobes. Panendoscopy in the bladder revealed extremely high-grade bladder damage with a fairly large open diverticulum on the floor towards the back on the left. All of his patches of papillary TCC tumors were noted on the back wall. I uniformly and deeply resected all of these patches of tumors. I made sure to include muscle in the specimen. The tumor was on the edge of the diverticulum but not within the diverticulum. The Ilich evacuator was used to get all the tumor pieces out. These were sent for permanent sections. The rollerball electrode was used to coagulate the entire resection bed to gain perfect hemostasis. Upon completion there was no bleeding. There were no tumors remaining. All of the specimen was removed from the bladder. The ureteral orifices were untouched. The scope was removed and I then placed a 20 [place] Castillo catheter in the bladder. 10 cc of fluid was placed in the balloon after it was manually irrigated. It was clear. The anesthetic was then reversed. He was then transferred to a rtyrone bed and wheeled to PACU in stable condition. He will be discharged to home with a prescription for Myrbetriq 50 mg daily #10 and cephalexin 500 mg twice daily for a week. Follow-up will be in a week for catheter removal and to review the pathology. Urinary Catheter Management Urinary Catheter Management Urethral: Cath placed during this visit: no
--- NOTE | 2024-06-02 13:20 | PC.NURSE ---
Relates of having urgency
--- NOTE | 2024-06-02 14:10 | PC.NURSE ---
Leg bag removed and switched to 2000cc bag; james red urine noted after transfer of bags; no clots; continues to c/o urgency; Dr. Berman notified and no orders received
--- NOTE | 2024-06-02 14:24 | PC.NURSE ---
Continues to c/o urinary urgency
== END 2024-06-02 15:00 | disposition home or self-care (01) ==
PROVIDERS: PCP Family Medicine; Visit Provider Urology
PROC: (CPT 52235; principal; 2024-06-02 12:00)
DX: C67.9 Malignant neoplasm of bladder, unspecified (principal); R31.9 Hematuria, unspecified; Z87.442 Personal history of urinary calculi; N52.9 Male erectile dysfunction, unspecified; Z86.718 Personal history of other venous thrombosis and embolism; Z85.828 Personal history of other malignant neoplasm of skin; Z79.01 Long term (current) use of 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; F17.290 Nicotine dependence, other tobacco product, uncomplicated; K21.9 Gastro-esophageal reflux disease without esophagitis
CPT/HCPCS: 52235; 36415; 88307; J0131; J0690; J1100; J1885; J2250; J2405; J2704; J3010

== ENCOUNTER 2025-02-24 11:03 | Outpatient (OUT) | payer MEDICARE, OTHER, SELFPAY ==
--- OUTSIDE RECORDS SUMMARY | 2025-02-20 13:09 | XMS_ITS | CCD ---
Author Organization [facility] Care Team Providers Care Transportation Manager Name Role Phone JHON, DR DAYRON Mckinney Admitting Unavailable NADERER, DR [...] DR DAYRON Mckinney Admitting Unavailable NADERER, DR DAYORN Mckinney Attending Unavailable NADERER, DR DAYRON Mckinney Primary Care Unavailable NADERER, DR DAYRON Mckinney Consulting Unavailable NADERER, DR DAYRON Mckinney Admitting Unavailable NADERER, DR DAYRON Mckinney Attending Unavailable NADERER, DR DAYRON Mckinney Primary Care Unavailable NADERER, DR DAYRON Mckinney Consulting Unavailable NADERER, DR DAYRON Mckinney Admitting Unavailable NADERER, DR DAYRON Mckinney Attending Unavailable SAMSA ., OUSMANE Admitting Unavailable FAIRM[place], DR KELY Rae Consulting Unavailable SAMSA ., OUSMANE Attending Unavailable NADERER, DR DAYRON Mckinney Primary Care Unavailable SAMSA ., OUSMANE Consulting Unavailable MD Dayron Cervantes Primary Care Provider MD Stanley Gregory II Attending Provider MD Sonido Quiles Attending Provider KELY GARZA Referring Unavailable NADERER, DAYRON Primary Care Unavailable KELY GARZA Attending Unavailable KLEY GARZA Referring Unavailable NADEREWili, DAYRON Primary Care Unavailable CATARINA FRAUSTO Admitting Unavailable CATARINA FRAUSTO Attending Unavailable CATARINA FRAUSTO Referring Unavailable VALENTINE GOMEZ Attending Unavailable NADEREWili, DAYRON Primary Care Unavailable Jhon CROCKETT, Dayron Primary Care Provider Jhon CROCKETT, Dayron Primary Care Provider [phone] Kevan Berrios DO Attending Provider JHON DAYRON Referring Unavailable Micaela IRELAND R Attending Unavailable BEKA, Micaela R Attending Unavailable Micaela IRELAND R Admitting Unavailable NADEREWili, DAYRON Primary Care Physician Jhon CROCKETT, Dayron Primary Care Provider Jhon CROCKETT, Dayron Unavailable Jade CROCKETT, Arjun Miller Unavailable [phone] Dat France DO Unavailable Dat France DO Attending Provider Jhon CROCKETT, Dayron Primary Care Provider Kevan Berriso DO Attending Provider Dat [place] DO Attending Provider Micaela Ireland MD Attending Provider Dat [place] Admitting Unavailable Naderewili, Dayron Primary Care Unavailable Dat France Attending Unavailable Jhon, Dayron Primary Care Unavailable Dat France Attending Unavailable Dat [place] Admitting Unavailable Sonido Quiles Attending Unavailable Sonido Quiles Admitting Unavailable Naderer, Dayron Primary Care Unavailable Naderer, Dayron Primary Care Unavailable Colt NIÑO, Stanley Bateman Attending Unavailabl e Colt II, Stanley Bateman Admitting Unavailabl e Naderer, Dayron Primary Care Unavailable Larue II, Stanley Bateman Attending Unavailabl e Larue II, Stanley Bateman Admitting Unavailabl e Micaela Ireland Attending Unavailable Micaela Ireland Admitting Unavailable Kevan Berrios Attending Unavailable Kevan Berrios Admitting Unavailable Naderer, Dayron Primary Care Unavailable BEKA, Micaela R Attending Unavailable IRELAND, Micaela R Attending Unavailable IRELAND, Micaela R Attending Unavailable IRELAND, Micaela R Attending Unavailable Charbel Zuñiga Unavailable Jhon CROCKETT, Dayron Mckinney Primary Care Provider [phone] Sarita CROCKETT, Lilliam Unavailable Kath CROCKETT, Arianne Unavailable [phone] Salma JOYA, Martha Unavailable Feliz CROCKETT, Trevon Unavailable Dayron Cervantes MD Primary Care Provider [phone] Jhon CROCKETT, Dayron Attending Provider [phone] Jhon CROCKETT, Dayron Primary Care Provider [phone] Jhon CROCKETT, Dayron Unavailable Jade CROCKETT, Arjun Miller Unavailable Unavailable CHUNG, ARJUN Miller Attending Unavailable BIEDENBACH, DAT Olson Attending Unavailable CHUNG, ARJUN Miller Referring Unavailable MURCEKLATONIA Attending Unavailable CHUNG, ARJUN Miller Referring Unavailable NADERER, DAYRON Attending Unavailable BIEDENBACH, DAT Olson Attending Unavailable CHUNG, ARJUN Miller Referring Unavailable PETITTI, LENA Mckinney Attending Unavailable NORTHEIKAROLINA Bateman Attending Unavailable NADERER, DAYRON Attending Unavailable CHUNG, ARJUN Miller Attending Unavailable BIEDENBACH, DAT Olson Attending Unavailable CHUNG, ARJUN Miller Referring Unavailable BIEDENBACH, DAT Olson Attending Unavailable BIEDENBACH, DAT Olson Attending Unavailable CHUNG, ARJUN Miller Referring Unavailable NADERER, DAYRON Attending Unavailable PETITTI, LENA Mckinney Attending Unavailable NORTHKAROLINA TEE Attending Unavailable NADERER, DAYRON Attending Unavailable NADERER, DAYRON A Primary Care Unavailable NADERER, DAYRON A Primary Care Unavailable Judie SMITH Referring Unavailable NADERER, DAYRON A Primary Care Unavailable NADERER, DAYRON A Primary Care Unavailable JULIET BOLANOS Primary Care Unavailab le NADERER, DAYRON A Primary Care Unavailable NIZAM, LILLIAM Referring Unavailable NADERER, DAYRON A Primary Care Unavailable TREVON REAL Attending Unavailable NIZAM, LILLIAM Referring Unavailable NADERER, DAYRON A Primary Care Unavailable ABHYANKAR, ARIANNE Referring Unavailable NADERER, DAYRON A Primary Care Unavailable LAYTON JEONG Attending Unavailable ABHYANKAR, ARIANNE Referring Unavailable NADERER, DAYRON A Primary Care Unavailable ABHYANKAR, ARIANNE Referring Unavailable NADERER, DAYRON A Primary Care Unavailable ABHYANKAR, ARIANNE Referring Unavailable NADERER, DAYRON A Primary Care Unavailable NADERER, DAYRON A Primary Care Unavailable ALMASSI, BABAK Admitting Unavailable ALMASSI, BABAK Attending Unavailable NADERER, DAYRON A Primary Care Unavailable ALMASSI, BABAK Admitting Unavailable ALMASSI, BABAK Attending Unavailable NADERER, DAYRON A Primary Care Unavailable NADERER, DAYRON A Primary Care Unavailable NADERER, DAYRON A Primary Care Unavailable NADERER, DAYRON A Primary Care Unavailable ELIZABETH, MINDI Attending Unavailable NADERER, DAYRON A Primary Care Unavailable FELIZ, TREVON Attending Unavailable FELIZ, TREVON Referring Unavailable NADERER, DAYRON A Primary Care Unavailable ELIZABETH, MINDI Referring Unavailable NADERER, DAYRON A Primary Care Unavailable ALMASSI, BABAK Attending Unavailable JULIET BOLANOS Primary Care Unavailab le ABHYANKAR, ARIANNE Referring Unavailable NADERER, DAYRON A Primary Care Unavailable ENGELER, Judie MURRAY Referring Unavailable NADERER, DAYRON A Primary Care Unavailable ELIZABETH, MINDI Attending Unavailable ABHYANKAR, ARIANNE Referring Unavailable NADERER, DAYRON A Primary Care Unavailable NADERER, DAYRON A Primary Care Unavailable NADERER, DAYRON A Primary Care Unavailable ALMASSI, BABAK Attending Unavailable NADERER, DAYRON A Primary Care Unavailable ABHYANKAR, ARIANNE Attending Unavailable ELIZABETH, MINDI Referring Unavailable NADERER, DAYRON A Primary Care Unavailable FELIZ, TREVON Attending Unavailable FELIZ, TREVON Referring Unavailable NADERER, DAYRON A Primary Care Unavailable NADERER, DAYRON A Primary Care Unavailable MANISH MARTHA Referring Unavailable NADERER, DAYRON A Primary Care Unavailable MANISH, MARTHA Referring Unavailable NADERER, DAYRON A Primary Care Unavailable YUNIOR CHAN Referring Unavailable NADERER, DAYRON A Primary Care Unavailable NADERER, DAYRON A Primary Care Unavailable NADERER, DAYRON A Primary Care Unavailable FELIZ, TREVON Attending Unavailable NADERER, DAYRON A Primary Care Unavailable NADERER, DAYRON A Primary Care Unavailable FELIZ, TREVON Attending Unavailable NADERER, DAYRON A Primary Care Unavailable NADERER, DAYRON A Primary Care Unavailable ENGELER, Judie MURRAY Attending Unavailable NADERER, DAYRON A Primary Care Unavailable NADERER, DAYRON A Primary Care Unavailable ELIZABETH, MINDI Attending Unavailable NADERER, DAYRON A Primary Care Unavailable NADERER, DAYRON A Primary Care Unavailable ABHYANKAR, ARIANNE Referring Unavailable ABHYANKAR, ARIANNE Referring Unavailable NADERER, DAYRON A Primary Care Unavailable PETERS, MARTHA Referring Unavailable NADERER, DAYRON A Primary Care Unavailable PETERS, MARTHA Referring Unavailable NADERER, DAYRON A Primary Care Unavailable NIZAM, LILLIAM Attending Unavailable ALMASSI, BABAK Referring Unavailable NADERER, DAYRON A Primary Care Unavailable NADERER, DAYRON A Primary Care Unavailable ENGELERJudie Attending Unavailable NADERER, DAYRON A Primary Care Unavailable NADERER, DAYRON A Primary Care Unavailable ABHYANKAR, ARIANNE Referring Unavailable NADERER, DAYRON A Primary Care Unavailable NADERER, DAYRON A Primary Care Unavailable FELIZ, TREVON Attending Unavailable NADERER, DAYRON A Primary Care Unavailable NADERER, DAYRON A Primary Care Unavailable FELIZ, TREVON Referring Unavailable NADERER, DAYRON A Primary Care Unavailable NADERER, DAYRON A Primary Care Unavailable ABHYANKAR, ARIANNE Referring Unavailable ABHYANKAR, ARIANNE Attending Unavailable NIZAM, LILLIAM Referring Unavailable NADERER, DAYRON A Primary Care Unavailable MANISH, MARTHA Referring Unavailable NADERER, DAYRON A Primary Care Unavailable MANISH, MARTHA Referring Unavailable NADERER, DAYRON A Primary Care Unavailable MANISH, MARTHA Referring Unavailable NADERER, DAYRON A Primary Care Unavailable NIZAM, LILLIAM Attending Unavailable NADERER, DAYRON A Primary Care Unavailable NADERER, DAYRON A Primary Care Unavailable NADERER, DAYRON A Primary Care Unavailable FELIZ, TREVON Attending Unavailable NADERER, DAYRON A Primary Care Unavailable NADERER, DAYRON A Primary Care Unavailable NADERER, DAYRON A Primary Care Unavailable NADERER, DAYRON A Primary Care Unavailable FELIZ, TREVON Attending Unavailable NADERER, DAYRON A Primary Care Unavailable ENGELERJudie Attending Unavailable ENGELERJudie Referring Unavailable NADERER, DAYRON A Primary Care Unavailable NADERER, DAYRON A Primary Care Unavailable ABHYANKAR, ARIANNE Referring Unavailable NADERER, DAYRON A Primary Care Unavailable NATALY MONSON Attending Unavailable ABHYANKAR, ARIANNE Referring Unavailable NADERER, DAYRON A Primary Care Unavailable ABHYANKAR, ARIANNE Referring Unavailable NADERER, DAYRON A Primary Care Unavailable Medications Current Medications MedicationDrug Class(es)DatesSig (Normalized)Sig (Original)cholecalciferol 0.05 mg oral tablet (20 sources)Vitamin DStart: 00-00-5329mbbo 1 tablet by mouth once daily Cholecalciferol (Vitamin D3) (Vitamin D3) 50 mcg (2,000 unit) tablet Active 50 MCG PO every day at noon May 13, 2024 1:00am Complies with drug therapy Start: 07-15-2023 End: 49-24-5213Ezkbftbhkvvkqge (Vitamin D3) 62.5 mcg (2,500 unit) capsule Discontinued MCG PO July 15, 2023 12:00am May 13, 2024 9:00amStart: 07-15-2023 End: 24-63-3559Saulnldfxetjlvj (Vitamin D3) 62.5 mcg (2,500 unit) capsule Discontinued MCG PO July 14, 2023 11:00pm May 13, 2024 8:00amStart: 87-28-9953Ydacqmmqtcrcjmi (Vitamin D3) 62.5 mcg (2,500 unit) capsule Active MCG PO July 14, 2023 11:00pmStart: 81-79-2946Rnbpqavubkfaura (Vitamin D3) Active MCG PO July 15, 2023 12:00amtake 1 capsule by mouth once dailycholecalciferol (Vitamin D-3) 50 MCG (2000 UT) capsule Take 2,000 Units by mouth Daily Active take 1 capsule by mouth in the morningcholecalciferol (Vitamin D-3) 50 MCG (2000 UT) capsule Take 2,000 Units by mouth in the morning. Activecholecalciferol, vitamin D3, (VITAMIN D3 ORAL) (20 sources)take 1 tablet by mouth once dailycholecalciferol, vitamin D3, (VITAMIN D3 ORAL) Take 1 tablet by mouth once daily. Activecholecalciferol, vitamin D3, (VITAMIN D3 ORAL) Take by mouth. Activechondroitin sulfates 400 mg / glucosamine hydrochloride 500 mg oral tablet (1 source)take 1 tablet by mouth three times dailyglucosamine-chondroitin 500- 400 mg tablet Take 1 tablet by mouth 3 (three) times a day. Activeclotrimazole 10 mg/ml topical cream (2 sources)Azole AntifungalStart: 00-12-3768iicclxpfcjbk (Lotrimin) 1 % cream Twice daily 12/07/2024 ActiveStart: 37-89-1396Ilkarcoeusns 1 % cream Active 1 APPLIC TOPICAL Twice daily December 07, 2024 12:00am Complies with drug therapyCoenzyme Q10 (2 sources)Start: 20-71-3996Wvnowgkd Q10 30 mg, Oral, TID, Refills(s) 0 Start Date: 04/11/24 Status: Ordereddicyclomine hydrochloride 20 mg oral tablet (19 sources)Anticholinergic End: 22-12-3703hclj 1 tablet by mouth four times daily as neededdicyclomine (Bentyl) 20 MG tablet Take 20 mg by mouth 4 (four) times a day as needed 02/24/2024 Discontinueddocosahexaenoic acid 120 mg / eicosapentaenoic acid 180 mg oral capsule (20 sources)take 1 capsule by mouth once dailyDocosahexanoic Acid-Eicosapent (FISH OIL) 120-180 mg capsule Take 2 g by mouth once daily. Activeenteric contrast (will be provided with radiology test) (1 source)Start: 10-03-2024 End: 66-50-3965fbmxuun contrast (will be provided with radiology test) For CT CHESTABD/PEL W IVCON Routine order Administer, As Directed One Time Only, via Oral, Rectal, both Oral and Rectal, Enteric Tube, Stoma orIndwelling Catheter, Enteric Contrast as designated per enteric contrast guidelines 1 each 10/03/2024 10/04/2024 ActiveFish Oils (20 sources)Start: 28-66-2013avaz 500 mg by mouth once dailyFish Oil 500 mg, Oral, Daily, Refill(s) 0 Start Date: 04/11/24 Status: Orderedtake 1 capsule by mouth once dailyomega-3 (FISH OIL) 300 MG capsule Take 300 mg by mouth Daily Activefurosemide 40 mg oral tablet (16 sources)Loop DiureticStart: 20-39-5438foab 1 tablet by mouth once daily Furosemide 40 mg tablet Active 40 MG PO Daily December 07, 2024 12:00am Complies with drug therapyStart: 09-26-2024 End: 53-94-427064 mg, INTRAVENOUS, ONCE, 1 dose, On Thu09/26/24 at 1000Start: 09-19-2024 End: 16-25-482105 mg, INTRAVENOUS, ONCE, 1 dose, On Thu09/19/24 at 1200Start: 09-12-2024 End: 87-26-667400 mg, INTRAVENOUS, ONCE, 1 dose, On Thu09/12/24 at 1100Start: 09-05-2024 End: 53-05-947441 mg, INTRAVENOUS, ONCE, 1 dose, On Thu09/05/24 at 1230Start: 09-02-2024 End: 51-42-7125frwj 1 tablet by mouth once daily as needed for edemafurosemide (Lasix) 40 MG tablet Indications: Venous insufficiency Take 1 tablet (40 mg) by mouth Daily as needed (Edema) 30 tablet 2 09/02/2024 Activeglucosamine 500 mg oral tablet (20 sources)Start: 84-38-9821edtc 500 mg by mouth twice dailyglucosamine 500 mg, Oral, BID, Refills(s) 0 Start Date: 04/11/24 Status: OrderedStart: 07-15-2023 End: 61-88-0466bbsg 1 capsule by mouth twice daily at mealtimeGlucosamine Sulfate 1,000 mg capsule Discontinued 1000 MG PO Twice daily July 15, 2023 12:00am December 07, 2024 7:05am administer with mealstake 1 tablet by mouth twice dailyGlucosamine Sulfate (GLUCOSAMINE) 500 mg tab Take 1 tablet by mouth two times a day. TlbyzjXehflcobktx-Khpgesagi-Etv C-Mn (Glucosamine 1500 Complex) capsule (20 sources)Rpozgivxlob-Ujfhghlhe-Gyd C-Mn (Glucosamine 1500 Complex) capsule Take 1 capsule by mouth Daily TseolyEockyyhjvcf-Zpczxtddi-Cxh C-Mn (Glucosamine 1500 Complex) capsule Take 1 capsule by mouth in the morning. Active hydroCHLOROthiazide 25 mg oral tablet (9 sources)Thiazide DiureticStart: 82-45-2424oejuhRLGISRfvbqvjcj (HYDRODIURIL, ESIDRIX) 25 mg tablet Take by mouth once daily. 03/27/2017 Activeiv contrast (will be provided with radiology test) (8 sources)Start: 10-03-2024 End: 01-21-0324to contrast (will be provided with radiology test) CT Chest ABD/PEL-Inject, intravenously, once for1 dose.No IV access, insert saline lock prior to the beginning of sedation, infusion, injection of imaging exam. Discontinue saline lock post exam. If Pt. has a central line or IVAD, may access for administration according to line specific nursing protocol. 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 Discontinue saline lock post exam. If Pt. has a central line or IVAD, may access for administration according to line specific nursing protocol. Once exam is complete flush line and de-access according to line specific nursing protocol in the CT contrast administration guidelines link. 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 Discontinue saline lock post exam. If Pt. has a central line or IVAD, may access for administration according to line specific nursing protocol. Once exam is complete flush line and de-access according to line specific nursing protocol in the CT contrast administration guidelines link. 1 each 07/11/2024 07/12/2024 A ctivelisinopril 20 mg oral tablet (20 sources)Angiotensin Converting Enzyme InhibitorStart: 10-05-2023 End: 72-77-7146jvjokacpyd 20 MG tablet Indications: Benign hypertension TAKE 1 TABLET DAILY 90 tablet 3 5ActiveStart: 04-10-2017 End: 38-68-7930mcuy 1 tablet by mouth once dailyLisinopril 10 mg tablet Discontinued 10 MG PO Daily July 15, 2023 12:00am May 13, 2024 9:04amtake 1 tablet by mouth in the morninglisinopriL (PRINIVIL,ZESTRIL) 20 mg tablet Take 1 tablet (20 mg total) by mouth in the morning. ActiveMedical marijuana (7 sources)Start: 36-14-7089Cvtqxzw marijuana Active PO Daily July 15, 2023 12:00am Complies with drug therapyStart: 09-47-3356Gxkwykf marijuana Active PO Daily July 15, 2023 12:00amStart: 87-36-9934Trzswnv marijuana Active PO Daily July 14, 2023 11:00pmStart: 32-13-3104Ogdkvib marijuana Active PO July 14, 2023 11:00pmStart: 50-00-2524Vmvcjfh marijuana Active PO July 15, 2023 12:00am medical marijuana (1 source)medical marijuana Inhale daily. Activemetoprolol tartrate 50 mg oral tablet (20 sources)beta-Adrenergic BlockerStart: 07-15-2023 End: 36-60-0085sldvtwxqeu tartrate (Lopressor) 50 MG tablet Indications: BPH associated with nocturia TAKE 1 TABLET IN THE MORNING AND TAKE 1 TABLET BEFORE BEDTIME. 180 tablet 3 09/06/2024 ActiveStart: 49-98-0247Mgcagiepur Tartrate Active MG PO July 15, 2023 12:89vxhhxfcank-nifg-KE-calcium &mins (THERAGRAN-M) 9 mg iron-400 mcg tablet (1 source)take 0.5 tablet by mouth once in the sxuxfkwnxyaradv-lynm-XT-calcium &mins (THERAGRAN-M) 9 mg iron-400 mcg tablet Take 0.5 tablets by mouthin the morning. Activemultivitamin (Theragran) tablet (20 sources)take 1 tablet by mouth once dailymultivitamin (Theragran) tablet Take 1 tablet by mouth Daily Activetake 1 tablet by mouth in the morning multivitamin (Theragran) tablet Take 1 tablet by mouth in the morning. Active Multivitamin preparation (20 sources)Start: 45-17-7196qliw 1 tablet by mouth once dailyMultivitamin Active 1 TAB PO Daily July 15, 2023 12:00amtake 0.5 tablet by mouth once daily multivitamin (VITAMIN DAILY ORAL) Take 0.5 tablets by mouth once daily. Active take 0.5 tablet by mouth once dailymultivitamin (VITAMIN DAILY ORAL) Take by mouth. Takes 1/2 tab ActiveMultivitamin tablet (5 sources)Start: 09-42-2970gcal 0.5 tablet by mouth once dailyMultivitamin tablet Active 0.5 TAB PO every day at noon July 15, 2023 12:00am Complies with drug therapyStart: 06-71-5283xiem 0.5 tablet by mouth once dailyMultivitamin tablet Active 0.5 TAB PO every day at noon July 15, 2023 12:00amStart: 86-14-6610vmwo 0.5 tablet by mouth once dailyMultivitamin tablet Active 0.5 TAB PO every day at noon July 14, 2023 11:00pmStart: 04-14-0469suhv 1 tablet by mouth once dailyMultivitamin tablet Active 1 TAB PO Daily July 14, 2023 11:00pmomega 0-zao-jzw-fish oil (Fish OiL) 300-1,000 mg capsule (1 source)omega 7-ojb-vav-fish oil (Fish OiL) 300-1,000 mg capsule Take by mouth daily. ActiveOmega 9-Nit-Brk-Fish Oil (Fish Oil) 60-90-500 mg capsule (5 sources)Start: 64-24-8350utms 1 capsule by mouth once daily at bedtimeOmega 8-Ktz-Jgv-Fish Oil (Fish Oil) 60-90-500 mg capsule Active 1 CAP PO Daily at bedtime September 24, 2023 12:00am Complies with drug therapyStart: 54-00-8461vfjj 1 capsule by mouth once daily at bedtimeOmega 4-Rqz-Nwk-Fish Oil (Fish Oil) 60-90-500 mg capsule Active 1 CAP PO Daily at bedtime September 24, 2023 12:00am Start: 62-13-6963lurg 1 capsule by mouth once daily at bedtimeOmega 4-Afa-Zqr-Fish Oil (Fish Oil) 60-90-500 mg capsule Active 1 CAP PO Daily at bedtime September 23, 2023 11:00pmStart: 06-74-3955jrug 1 capsule by mouth once dailyOmega 8-Glp-Aeg-Fish Oil (Fish Oil) 60-90-500 mg capsule Active 1 CAP PO Daily September 23, 2023 11:00pmondansetron 8 mg oral tablet (20 sources)Serotonin-3 Receptor AntagonistStart: 84-88-5464owfb 1 tablet by mouth every eight hours as neededondansetron (ZOFRAN) 8 mg tablet Take 1 tablet by mouth every 8 hours as needed for nausea/vomiting. 90 tablet 1 09/05/2024 12:39 PM EDT 08/16/2024 Activephenazopyridine hydrochloride 200 mg oral tablet (2 sources)Start: 10-14-2024 End: 97-39-7474apsv 1 tablet by mouth every eight hours as neededphenazopyridine (PYRIDIUM) 200 mg tablet Take 1 tablet by mouth three times a day as needed for up to 15 days. 45 tablet 10/14/2024 10/29/2024 ActiveStart: 07-18-2024 End: 15-59-4274aorf 1 tablet by mouth three times daily in the evening phenazopyridine (PYRIDIUM) 100 mg tablet Indications: dysuria Take 1 tablet by mouth three times a day for 7 days. 21 tablet 07/18/2024 7:08 PM EDT 07/18/2024 07/25/2024 Activeprochlorperazine 10 mg oral tablet (20 sources)PhenothiazineStart: 38-12-0312gjrjmmmtiqqsjsdy (Compazine) 10 MG tablet 09/05/2024 Activesimvastatin 20 mg oral tablet (20 sources)HMG-CoA Reductase InhibitorStart: 93-85-3992tlrzpwvagsw (Zocor) 20 MG tablet Indications: Dyslipidemia TAKE 1 TABLET AT BEDTIME 90 tablet 3 09/14 ActiveStart: 07-15-2023 End: 13-03-2602yusogtveewx (Zocor) 20 MG tablet Indications: Dyslipidemia TAKE 1 TABLET AT BEDTIME 90 tablet 3 10/10/2024 Activesimvastatin (ZOCOR) 40 mg tablet Take by mouth daily at bedtime. Activetamsulosin hydrochloride 0.4 mg oral capsule (10 sources)alpha-Adrenergic BlockerStart: 18-05-5033flaz 1 capsule by mouth once dailyTamsulosin 0.4 mg capsule Active 0.4 MG PO Daily December 07, 2024 12:00am Complies with drug therapyStart: 06-49-3854ndbc 1 capsule by mouth once daily at bedtimetamsulosin (FLOMAX) 0.4 mg Take 1 capsule by mouth daily at bedtime. 30 capsule 3 09/28/2024 Activeterazosin 10 mg oral capsule (20 sources)alpha-Adrenergic BlockerStart: 27-94-1772zjalcpshj (Hytrin) 10 MG capsule Indications: BPH associated with nocturia TAKE 1 CAPSULE AT BEDTIME 90 capsule 3 10/24/2024 ActiveStart: 03-82-8313yspw 10 mg by mouth once daily terazosin 10 mg, Oral, Daily, Refills(s) 0 Start Date: 04/11/24 Status: Ordered Start: 07-15-2023 End: 35-97-0093lyei 1 capsule by mouth once daily at bedtimeterazosin (HYTRIN) 5 mg capsule Take by mouth daily at bedtime. Jzntsn19 hr tolterodine tartrate 2 mg extended release oral capsule (12 sources)Cholinergic Muscarinic AntagonistStart: 58-52-9398zprd 1 capsule by mouth every twenty-four hours in the morningtolterodine LA (Detrol LA) 2 MG 24 hr capsule Take 2 mg by mouth in the morning. 10/18/2024 ActiveStart: 09-26-2024 End: 94-41-3747fwru 1 capsule by mouth once dailytolterodine ER (DETROL LA) 2 mg 24 hr capsule TAKE 1 CAPSULE BY MOUTH EVERY DAY 90 capsule 10/18/2024 Active ubidecarenone 100 mg oral capsule (20 sources)Start: 99-07-0482Vzqtdypn Q10 (Co Q-10) 100 mg capsule Active 100 MG PO every day at noon July 15, 2023 12:00am Complies with drug therapytake 1 capsule by mouth twice dailycoenzyme Q10 (COQ-10) 100 mg cap capsule Take by mouth twice daily. Activetake 1 capsule by mouth three times dailycoenzyme Q10 30 mg capsule Take 1 capsule (30 mg total) by mouth 3 (three) times a day. Activeubidecarenone 100 mg / vitamin e 5 unt oral capsule (20 sources)take 1 capsule by mouth once dailycoenzyme Q-10 100 MG capsule Take 1 capsule by mouth 1 (one) time each day at the same time ActiveVitamin D3 (2 sources)Start: 45-02-9026hxyg 10 ug by mouth once dailyVitamin D3 10 mcg, Oral, Daily, Refills(s) 0 Start Date: 04/11/24 Status: Orderedwarfarin sodium 5 mg oral tablet (20 sources)Vitamin K AntagonistStart: 19-46-9395fqsvgwix (Coumadin) 5 MG tablet Indications: BPH associated with nocturia TAKE 1 TABLET DAILY 90 tablet 3 09/06/2024 Active Completed/Discontinued Medications MedicationDrug Class(es)DatesSig (Normalized)Sig (Original)acetaminophen 325 mg / HYDROcodone bitartrate 5 mg oral tablet (3 sources)Opioid AgonistStart: 05-18-2024 End: 49-69-0865cncp 1 tablet by mouth every six hours as needed for pain Hydrocodone-Acetaminophen 5-325 mg tablet Discontinued 1 TAB PO Every 6 hours as needed for pain May 18, 2024 December 07, 2024 8:34amcephalexin 500 mg oral capsule (20 sources)Cephalosporin AntibacterialStart: 05-10-2024 End: 49-45-4725xlor 1 capsule by mouth twice dailyCephalexin 500 mg capsule Discontinued 500 MG PO Twice daily May 13, 2024 1:00am December 07, 2024 8:33amCISplatin 87.2 mg in NaCl 0.9% 1,137.2 mL (PLATINOL) (4 sources)Start: 09-26-2024 End: .2 mg (40 mg/m2 2.18 m2 Treatment Plan BSA from Recorded weight), INTRAVENOUS, Administer over 1 Hours, ONCE, 1 dose, On Thu09/26/24 at 1200, EXP: 09/27/2024 1545 RT Hazardous Chemotherapy Drug: Use appropriate PPE. Antineoplastic Vesicant for concentrations greater than 0.4 mg/mL - Antineoplastic Irritant for concentrations less than 0.4 mg/mL. Protect from Light.Start: 09-19-2024 End: .2 mg (40 mg/m2 2.18 m2 Treatment Plan BSA from Recorded weight), INTRAVENOUS, Administer over 1 Hours, ONCE, 1 dose, On Thu09/19/24 at 1400, EXP: 0400 09/21/24 Hazardous Chemotherapy Drug: Use appropriate PPE. Antineoplastic Vesicant for concentrations greater than 0.4 mg/mL - Antineoplastic Irritant for concentrations less than 0.4 mg/mL. Protect from Light.Start: 09-12-2024 End: 62-00-918451.2 mg (40 mg/m2 2.18 m2 Treatment Plan BSA from Recorded weight), INTRAVENOUS, Administer over 1 Hours, ONCE, 1 dose, On Thu09/12/24 at 1300, EXP: 0245 09/14/24 Hazardous Chemotherapy Drug: Use appropriate PPE. Antineoplastic Vesicant for concentrations greater than 0.4 mg/mL - Antineoplastic Irritant for concentrations less than 0.4 mg/mL. Protect from Light.Start: 09-05-2024 End: .2 mg (40 mg/m2 2.18 m2 Treatment Plan BSA from Recorded weight), INTRAVENOUS, Administer over 1 Hours, ONCE, 1 dose, On Thu09/05/24 at 1430, EXP: 09/06/2024 1610 RT Hazardous Chemotherapy Drug: Use appropriate PPE. Antineoplastic Vesicant for concentrations greater than 0.4 mg/mL - Antineoplastic Irritant for concentrations less than 0.4 mg/mL. Protect from Light.1 ml dexamethasone phosphate 10 mg/ml injection (4 sources)CorticosteroidStart: 09-26-2024 End: 29-22-339921 mg, INTRAVENOUS, ONCE, 1 dose, On Thu09/26/24 at 1000, Administer IV doses up to 10 mg over 5 minutes. Administer doses > 10 mg over 15 to 30 minutes.Start: 09-19-2024 End: 79-30-862629 mg, INTRAVENOUS, ONCE, 1 dose, On Thu09/19/24 at 1200, Administer IV doses up to 10 mg over 5 minutes. Administer doses > 10 mg over 15 to 30 minutes.Start: 09-12-2024 End: 12-03-443634 mg, INTRAVENOUS, ONCE, 1 dose, On Thu09/12/24 at 1100, Administer over 5 minutes.Start: 09-05-2024 End: 16-71-743778 mg, INTRAVENOUS, ONCE, 1 dose, On Thu09/05/24 at 1230, Administer over 5 minutes.fosaprepitant 150 mg in NaCl 0.9% 100 mL (EMEND) (4 sources)Start: 09-26-2024 End: 89-58-5748118 mg, INTRAVENOUS, Administer over 30 Minutes, ONCE, 1 dose, On Thu09/26/24 at 1000, RefrigerateStart: 09-19-2024 End: 89-69-5551328 mg, INTRAVENOUS, Administer over 30 Minutes, ONCE, 1 dose, On Thu09/19/24 at 1200, Approximate Total Volume = 115 mL RefrigerateStart: 09-12-2024 End: 33-56-1985854 mg, INTRAVENOUS, Administer over 30 Minutes, ONCE, 1 dose, On Thu09/12/24 at 1100, Approximate Total Volume = 115 mL RefrigerateStart: 09-05-2024 End: 42-41-7789415 mg, INTRAVENOUS, Administer over 30 Minutes, ONCE, 1 dose, On Thu09/05/24 at 1230, RefrigeratehydrOXYzine hydrochloride 25 mg oral tablet (9 sources)AntihistamineStart: 06-02-2024 End: 16-77-7287qmsu 1 tablet by mouth four times daily as needed for anxiety hydrOXYzine HCl (Atarax) 25 MG tablet Indications: Anxiety Take 1 tablet (25 mg) by mouth 4 (four) times a day as needed for anxiety 30 tablet 1 06/02/2024 07/07/2024 Discontinued (Therapy completed)50 ml magnesium sulfate 40 mg/ml injection (4 sources)Start: 09-26-2024 End: 87-02-1358jdfz 2 g intravenously every hour2 g, INTRAVENOUS, at 25-50 mL/hr, Administer over 1-2 Hours, ONCE, 1 dose, On Thu09/26/24 at 1000, Post Hydration Magnesium sulfate iv bolus will be infused at a rate of 1 gram/hr The following nursing units may administer 2 g dose over 1 hour if necessary: ICUs/PACU/ED, Adult Hematology/Oncology, Labor and Delivery, Cardiac Stepdown, Headache Clinic If necessary, a magnesium sulfate bolus may be administered greater than 2 g/hr for the following indications: Adult and Pediatric Asthma Exacerbations, Torsade de Pointes, Pediatric BMT and Hematology/Oncology, Eclampsia or PreeclampsiaStart: 09-19-2024 End: 55-07-0260ywbj 2 g intravenously every hour2 g, INTRAVENOUS, at 25-50 mL/hr, Administer over 1-2 Hours, ONCE, 1 dose, On Thu09/19/24 at 1200, Post Hydration Magnesium sulfate iv bolus will be infused at a rate of 1 gram/hr The following nursing units may administer 2 g dose over 1 hour if necessary: ICUs/PACU/ED, Adult Hematology/Oncology, Labor and Delivery, Cardiac Stepdown, Headache Clinic If necessary, a magnesium sulfate bolus may be administered greater than 2 g/hr for the following indications: Adult and Pediatric Asthma Exacerbations, Torsade de Pointes, Pediatric BMT and Hematology/Oncology, Eclampsia or PreeclampsiaStart: 09-12-2024 End: 28-05-6783jpmi 2 g intravenously every hour2 g, INTRAVENOUS, at 25-50 mL/hr, Administer over 1-2 Hours, ONCE, 1 dose, On Thu09/12/24 at 1100, Post Hydration Magnesium sulfate iv bolus will be infused at a rate of 1 gram/hr The following nursing units may administer 2 g dose over 1 hour if necessary: ICUs/PACU/ED, Adult Hematology/Oncology, Labor and Delivery, Cardiac Stepdown, Headache Clinic If necessary, a magnesium sulfate bolus may be administered greater than 2 g/hr for the following indications: Adult and Pediatric Asthma Exacerbations, Torsade de Pointes, Pediatric BMT and Hematology/Oncology, Eclampsia or PreeclampsiaStart: 09-05-2024 End: 39-71-3883qlhi 2 g intravenously every hour2 g, INTRAVENOUS, at 25-50 mL/hr, Administer over 1-2 Hours, ONCE, 1 dose, On Thu09/05/24 at 1230, Post Hydration Magnesium sulfate iv bolus will be infused at a rate of 1 gram/hr The following nursing units may administer 2 g dose over 1 hour if necessary: ICUs/PACU/ED, Adult Hematology/Oncology, Labor and Delivery, Cardiac Stepdown, Headache Clinic If necessary, a magnesium sulfate bolus may be administered greater than 2 g/hr for the following indications: Adult and Pediatric Asthma Exacerbations, Torsade de Pointes, Pediatric BMT and Hematology/Oncology, Eclampsia or PreeclampsiaNaCl 0.9% 1,000 mL (4 sources)Start: 09-26-2024 End: 60-28-1413ATYQBQLNNPO, at 999 mL/hr, Administer over 1 Hours, ONCE, 1 dose, On Thu09/26/24 at 1000, Post HydrationStart: 09-19-2024 End: 47-07-8942RNGSPMEDWEG, at 999 mL/hr, Administer over 1 Hours, ONCE, 1 dose, On Thu09/19/24 at 1200, Post HydrationStart: 09-12-2024 End: 32-49-8997IPDTOHPKXXC, at 999 mL/hr, Administer over 1 Hours, ONCE, 1 dose, On Thu09/12/24 at 1100, Post HydrationStart: 09-05-2024 End: 72-25-7012LFPJMQKJAOF, at 999 mL/hr, Administer over 1 Hours, ONCE, 1 dose, On Thu09/05/24 at 1230, Post HydrationNirmatrelvir&Ritonavir 300/100 (Paxlovid, 300/100,) 20 x 150 MG & 10 x 100MG tablet therapypack (7 sources)Start: 03-10-2024 End: 00-62-9095Vtnlngvthbis&Ritonavir 300/100 (Paxlovid, 300/100,) 20 x 150 MG & 10 x 100MG tablet therapypack Indications: COVID-19 Take 1 each by mouth See administration instructions 1 each 03/10/2024 05/10/2024 Discontinued (Therapy completed)Start: 22-63-6566Tiplxfshkdwa&Ritonavir 300/100 (Paxlovid, 300/100,) 20 x 150 MG & 10 x 100MG tablet therapypack Indications: COVID-19 Take 1 each by mouth See administration instructions 1 each 03/10/2024 Active5 ml palonosetron 0.05 mg/ml injection (4 sources)Serotonin-3 Receptor AntagonistStart: 09-26-2024 End: 50.25 mg, INTRAVENOUS, ONCE, 1 dose, On Thu09/26/24 at 1000, Flush IV line with NS prior to and following administration.Start: 09-19-2024 End: 50.25 mg, INTRAVENOUS, ONCE, 1 dose, On Thu09/19/24 at 1200, Flush IV line with NS prior to and following administration.Start: 09-12-2024 End: 50.25 mg, INTRAVENOUS, ONCE, 1 dose, On Thu09/12/24 at 1100, Flush IV line with NS prior to and following administration.Start: 09-05-2024 End: 50.25 mg, INTRAVENOUS, ONCE, 1 dose, On Thu09/05/24 at 1230, Flush IV line with NS prior to and following administration.1000 ml sodium chloride 9 mg/ml injection (4 sources)Start: 09-26-2024 End: ,000 mL, INTRAVENOUS, at 999 mL/hr, Administer over 1 Hours, ONCE, 1 dose, On Thu09/26/24 at 1030Start: 09-19-2024 End: ,000 mL, INTRAVENOUS, at 999 mL/hr, Administer over 1 Hours, ONCE, 1 dose, On Thu09/19/24 at 1230Start: 09-12-2024 End: ,000 mL, INTRAVENOUS, at 999 mL/hr, Administer over 1 Hours, ONCE, 1 dose, On Thu09/12/24 at 1130Start: 09-05-2024 End: ,000 mL, INTRAVENOUS, at 999 mL/hr, Administer over 1 Hours, ONCE, 1 dose, On Thu09/05/24 at 1300 Problems Active Problems Problem ClassificationProblemDateDocumented DateEpisodic/ChronicAcquired foot deformities (2 sources)Hammer toe; Translations: [Other hammer toe(s) (acquired), right foot]50-77-1124HdnqsebSfqxvycx of urinary tract (4 sources)Kidney stone; Translations: [Calculus of kidney]Onset: 04-11-2024 EpisodicCancer of bladder (20 sources)Transitional cell carcinoma of bladder; Translations: [Malignant neoplasm of bladder, unspecified]Onset: 05-31-2024 Resolved: 466427-04-4905QkiwvvtDvtzue of bladder (1 source)Personal history of malignant neoplasm of bladder; Translations: [History of bladder cancer]Onset: 60-30-0303KxuqrbrvDhhlbd of other urinary organs (7 sources)Malignant tumor of urinary tract proper; Translations: [Malignant neoplasm of urinary organ, unspecified]Onset: 992523-55-5746ZjxijliEleuqpw dysrhythmias (20 sources)Multiple premature ventricular complexes; Translations: [Ventricular premature depolarization]Onset: 866680-56-5806GfixkvoHxkyxhn kidney disease (20 sources)Chronic kidney disease stage 3; Translations: [Chronic kidney disease, stage III (moderate) (HCC)]Onset: 03-04-2023 Resolved: 909054-87-2940SvwuglvRvcnmgjfr of lipid metabolism (20 sources)Dyslipidemia; Translations: [Hyperlipidemia, unspecified]Onset: 03-04-2023 Resolved: 817528-41-7334WpogwnkDaniyudyhb disorders (20 sources)Gastroesophageal reflux disease; Translations: [Gastro-esophageal reflux disease without esophagitis]Onset: 06-02-2024 Resolved: 197748-27-6871KkxqyxsLvvqpcfxw hypertension (20 sources)Benign hypertension; Translations: [Essential (primary) hypertension]Onset: 799889-31-2170LpuxujcDdluthdmlxoia symptoms and ill- defined conditions (20 sources) hematuria; Translations: [Gross hematuria]Onset: 03-31-2024 85-95-2226KtvucfofQvvnbqxjxfa of prostate (20 sources)Nocturia due to benign prostatic hypertrophy; Translations: [Benign prostatic hyperplasia with lower urinary tract symptoms]Onset: 03-04-2023 Resolved: 455311-77-5727ZbyfkthVrctfrecqzwhg and screening for infectious disease (1 source)Encounter for immunization; Translations: [Need for vaccination]Onset: 24-05-3735FpfkuzoiCslbwgkitzb chemotherapy; radiotherapy (3 sources)Patient encounter status; Translations: [Encounter for antineoplastic chemotherapy]Onset: 906493-90-3530QnwjranCexnipd (2 sources)Tinea cruris; Translations: [Tinea cruris]62-24-2571Nshnjrrc Nutritional deficiencies (20 sources)Vitamin D deficiency; Translations: [Vitamin D deficiency, unspecified]Onset: 942878-99-9581LxcdlbdHpbjkaevxupcpj (20 sources)Primary coxarthrosis, bilateral; Translations: [Bilateral primary osteoarthritis of hip]Onset: 458145-39-9027NddgvzeYynzk acquired deformities (8 sources)Surgical wound finding; Translations: [Other acquired deformity of head]50-98-4340SmqnqkgoVjegj aftercare (20 sources)Patient encounter status; Translations: [Encounter for screening for malignant neoplasm of prostate]Onset: 525717-72-3748CqoddsmvZxvmv aftercare (1 source)Encounter for other plastic and reconstructive surgery following medical procedure or healed injury; Translations: [Encounter for other plastic and reconstructive surgery following medical procedure or healed injury]Onset: 85-84-2258MmxkgemeFcbhl aftercare (2 sources)Long-term current use of anticoagulant; Translations: [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]76-32-7201ZfbhtorhQggzh circulatory disease (1 source)Other disorder of circulatory system; Translations: [Vascular insufficiency]Onset: 31-02-0192MihpofvhRikji diseases of bladder and urethra (1 source)Other specified disorders of bladder; Translations: [Other specified disorders of bladder]Onset: 19-05-9309IdgmrvwNcgxg ear and sense organ disorders (6 sources)Acquired deformity of pinna; Translations: [Acquired deformity of pinna, left ear]02-27-8909GenhgiwrXymwu lower respiratory disease (5 sources)Pulmonary fibrosis, unspecified; Translations: [PULMONARY FIBROSIS UNSPECIFIED]Onset: 01-82-9517BxbclbaRhpbl lower respiratory disease (20 sources)Fibrosis of lung; Translations: [Pulmonary fibrosis, unspecified] Onset: 001807-20-6726GjqhjupFdjhi male genital disorders (3 sources)Male erectile dysfunction, unspecified; Translations: [Erectile dysfunction]Onset: 50-35-4401ZejpfquIdcfm non-traumatic joint disorders (7 sources)Hip pain; Translations: [Pain in right hip]54-78-2729LzgajwgzKrhjt nutritional; endocrine; and metabolic disorders (20 sources)Body mass index 30+ - obesity; Translations: [Obesity, unspecified] Onset: 093202-58-5930HywolnzJkkbp nutritional; endocrine; and metabolic disorders (11 sources)Obesity caused by energy imbalance; Translations: [Class 1 obesity due to excess calories with serious comorbidity and body mass index (BMI) of 32.0 to 32.9 in adult]Onset: 581843-03-5926AkrnnvtIozaa nutritional; endocrine; and metabolic disorders (1 source)Body mass index (BMI) 34.0-34.9, adult; Translations: [BMI 34.0-34.9,adult]Onset: 64-89-5437UfqiuwhIlekg skin disorders (3 sources)Seborrheic keratosis; Translations: [Other seborrheic keratosis] 48-79-3798YbecbutdWtikp skin disorders (2 sources)Actinic keratosis; Translations: [Actinic keratosis]02-09-2024 EpisodicOther skin disorders (1 source)Lentiginosis; Translations: [Other melanin hyperpigmentation] 60-94-8240YzvzkttzDokeg skin disorders (1 source)Inflamed seborrheic keratosis; Translations: [Inflamed seborrheic keratosis]54-98-9968GflkbzojNtjbw upper respiratory infections (20 sources)Chronic sinusitis, unspecified; Translations: [Chronic rhinitis] Onset: 538007-92-2170YnkzhydOwlulddwqo and visceral atherosclerosis (20 sources)Renal artery stenosis; Translations: [Atherosclerosis of renal artery]Onset: 667269-30-6416ErgowlmSjcoeqjhd; thrombophlebitis and thromboembolism (20 sources)H/O: Deep vein thrombosis; Translations: [Personal history of other venous thrombosis and embolism]Onset: 254851-85-0127UsojqyezZvopeespzvd; intervertebral disc disorders; other back problems (20 sources)Thoracic spondylosis without myelopathy; Translations: [Spondylosis without myelopathy or radiculopathy, thoracic region]Onset: ChronicSubstance-related disorders (2 sources)Nicotine dependence, cigarettes, uncomplicated; Translations: [Cannabis abuse, uncomplicated]Onset: 18-17-0406PswhiowMtxegevoroji (1 source)bilateral ptosisOnset: 69-07-0816Gfvexhhqwtfb (1 source)Low back pain, unspecified; Translations: [Low back pain, unspecified] Onset: 08-27-4118Prfrqmzkfvng (1 source)OPENED IN OAUOM18-49-5204Uthetmtdahwb (1 source)Radiotherapy On-treatment VisitOnset: 09-21-2024 Past or Other Problems Problem ClassificationProblemDateDocumented DateEpisodic/ChronicDiabetes mellitus without complication (20 sources)Prediabetes; Translations: [Prediabetes]Onset: EpisodicE Codes: Adverse effects of medical drugs (1 source)Adverse effect of antineoplastic and immunosuppressive drugs, initial encounter; Translations: [Chemotherapy-induced fatigue]Onset: 48-68-6829Ogfnnzwb Malaise and fatigue (3 sources)Fatigue due to chemotherapy; Translations: [Other fatigue]Onset: 442786-86-3369NibjbjifNrqg disorders (9 sources)Mood disordersOnset: 316428-45-4651Vmheyzumk of unspecified nature or uncertain behavior (20 sources)Neoplasm of skin; Translations: [Neoplasm of unspecified behavior of bone, soft tissue, and skin]Onset: 160649-83-9540VvhwkfziQveig aftercare (6 sources)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; Translations: [SATELLITE TECHNICIAN CURRNT USE ANTICOAGULANTS]Onset: 27-63-7559JpbkgaoiFsclm aftercare (20 sources)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; Translations: [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]Onset: 703258-50-6893RsubenpuXwdcm aftercare (20 sources)Long-term current use of drug therapy; Translations: [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 intermodal 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) drug therapy]Onset: 307463-14-4028UdebckinAuxpb aftercare (1 source)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; Translations: [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]32-55-7371OnaefblqPdamw aftercare (20 sources)Marijuana user; Translations: [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 intermodal 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) drug therapy]Onset: 07-11-2024 Resolved: 973550-70-9611SvvgjsygWqigu aftercare (1 source)Other fci (current) drug therapy; Translations: [Medical marijuana use]Onset: 99-03-1616ZozrbrmyNclbv diseases of veins and lymphatics (13 sources)Vascular insufficiency; Translations: [Venous insufficiency (chronic) (peripheral)]Onset: 176633-52-0744IzfbckaxIjnpa gastrointestinal disorders (20 sources)Irritable bowel syndrome with diarrhea; Translations: [Irritable bowel syndrome with diarrhea]Onset: 03-04-2023 Resolved: 452838-76-1360HumlqfdUdytt nervous system disorders (20 sources)Postoperative pain ; Translations: [Other acute postprocedural pain] Onset: 05-25-2024 Resolved: 743838-76-3489HrrbkzubPthvf non-epithelial cancer of skin (20 sources)Basal cell carcinoma of mormon; Translations: [Basal cell carcinoma of skin of other parts of face]Onset: 07-11-2024 Resolved: 852435-06-0227VfxxlwakCiolz non-traumatic joint disorders (1 source)Pain in right hip; Translations: [Pain in right hip]Onset: 07-15-2023 EpisodicOther non-traumatic joint disorders (1 source)Pain in left hip; Translations: [Pain in left hip]Onset: 07-15-2023 EpisodicOther upper respiratory disease (20 sources)Feeling of lump in throat; Translations: [Globus sensation]Onset: 706029-35-2855NqdlcuxkNdrijefuv and history of mental health and substance abuse codes (20 sources)Ex-tobacco user; Translations: [Personal history of nicotine dependence]Onset: 05-25-2024 Resolved: 829476-72-5422BmdjbyrdVndpwcfofuq; intervertebral disc disorders; other back problems (20 sources)Spinal stenosis; Translations: [Spinal stenosis, site unspecified] Onset: 330421-88-2097ZcndxbqdUkwrijz on above:with right sided weakness Urinary tract infections (5 sources)Urinary tract infectious disease; Translations: [Urinary tract infection, site not specified]Onset: 148270-43-1861Haxqpphe Results Test NameValueInterpretationReference RangeFacilityANES POSTPROC EVALon 35-28-5173CNUQ POSTPROC EVALNormalCVeterans Health AdministrationANES PRE-OPon 67-89-6857PVRO PRE-OPNormalUniversity Hospitals St. John Medical CenterOPERATIVE NOon 01-20-2025 OPERATIVE NONormalCleBlanchard Valley Health System Bluffton HospitalPathology biopsy report Vincent (Tiss)on 25-76-5264EN DISCLAIMERNormalCVeterans Health AdministrationComment on above:Order Comment: Specimen Type: TISSUE SPECIMENOrdering Facility: [facility] Address: [address] [place], [place] [address]Result Comment: Laboratory Developed Test (LDT) Disclaimer:Performance characteristics of immunohistochemical, immunofluorescent, and chromogenic in-situ hybridization tests have been determined by the performing laboratory within the [facility] Department of Pathology and Laboratory Medicine([facility], [facility], [facility], [facility], [facility], [facility], or [facility]) in a manner consistent with CLIA requirements. One or more of these tests may not have been cleared or approved by the FDA. The [facility] Department of Pathology and Laboratory Medicine is regulated under CLIA as qualified to perform high- complexity testing. These tests are used for clinical purposes. These should not be regarded as investigational or for research. Positive and negative controls stain appropriately.Performed By: #### [id number] ####[facility] LABCLIA [id number] [place] [address] [place] STATES OF AMERICACASE REPORTNoAvita Health System on above:Order Comment: Specimen Type: TISSUE SPECIMENOrdering Facility: [facility] Address: [address] [place], [place] [address]Result Comment: Surgical Pathology Report Case: [id number] Provider: Babak Hernández MD Collected: 01/20/2025 01:52 PMOrdering Location: Admitting Received: 01/20/2025 02:31 PMPathologist: Ellen Keenan MDSpecimens: A) - Bladder, Biopsy B) - Urethra, Biopsy, urethral biopsyPerformed By: #### [id number] ####[facility] LABIA [id number] [place] [address] [place] OF AMERICACLINICAL HISTORYNormKettering Health Greene Memorial on above:Order Comment: Specimen Type: TISSUE SPECIMENOrdering Facility: [facility] Address: [address] [place], [place] [address]Result Comment: Pre-op diagnosis:Malignant neoplasm of urinary bladder, unspecified site (HCC) [C67.9]Associated Diagnoses:C67.9 - Malignant neoplasm of urinary bladder, unspecified site (HCC) Performed By: #### [id number] ####[facility] LABCLIA [id number] [place] [id number] [place] OF AMERICADIAGNOSIS COMMENTNormal [facility] on above:Order Comment: Specimen Type: TISSUE SPECIMENOrdering Facility: [facility] Address: [address] [place], [place] [address]Result Comment: This case was seen in consultation with Dr. Estelita Norman who agrees with the above interpretation.Performed By: #### [id number] ####[facility] LABCLIA [id number] [address] Comment on above:Order Comment: Specimen Type: TISSUE SPECIMENOrdering Facility: [facility] Address: [address] [place], [place] [address]Result Comment: A. Bladder, biopsy:- Urothelial atypia of uncertain significance.- Focal muscularispropria is present and free of tumor.B. Urethra, biopsy:- Noninvasive high-grade papillary urothelial carcinoma. at 1236 ESTPerformed By: #### 11070-2 ####[facility] LABCLIA [id number] [address] PERFORMING LABSelect Medical [facility]ty [facility], [facility] Comment on above:Order Comment: Specimen Type: TISSUE SPECIMENOrdering Facility: [facility] Address: [address] [place], [place] [address]Result Comment: Diagnostic interpretation performed at: [facility], [address] [place] [address] CLIA# [id number] Director: RAH Duranterformed By: #### [id number] ####[facility] LABCLIA [id number] [address] DESCRIPTIONSelect Medical Specialty Hospital - [facility], IncComhenry ford [facility] on above:Order Comment: Specimen Type: TISSUE SPECIMENOrdering Facility: [facility] Address: [address] [place], [place] [address]Result Comment: A. Bladder, BiopsyReceived in formalin is one piece of pink-white, rubbery tissue measuring 0.5 x 0.3 x 0.4 cm. Totally submitted in one cassette.B. Urethra, BiopsyReceived in formalin are multiple pieces of red-pink, rubbery tissue aggregating to 0.8 x 0.4 x 0.4 cm. Totally submitted in one cassette.CL January 20, 2025 5:15 PMGross examination performed at [facility], [address] [place], [place] [address]Performed By: #### [id number] ####[facility] LABCLIA [id number] [place] [address] [place] OF AMERICACNNURSEon 41-57-6214ZMQNOOYKwfzunBqernfqvp Clinic ClevelandCNPNon 21-54-9367FZRPKzomcp [facility] John Medical CenterCryotherapy, skin lesionon 08-22-4434WQKV Healthcare Bacteria Ur Culton 69-63-9816Jpwzpbtr identified Cx Nom (U)CULTURE, URINE: No growth (<1,000 CFU/ml)NormalUniversity Hospitals St. John Medical CenterComment on above: Performed By: #### 630-4 ####[facility] LABCLIA [id number] [place] [address] [place] OF AMERICABasic metabolic 2000 panelon 36-94-6807Avkqy gap [Moles/Vol]13 mmol/LNormal8-15[facility] Comment on above:Order Comment: Specimen Type: BLOOD SPECIMENOrdering Facility: [facility] Address:[address] [place] [address] Performed By: #### 21102-2 ####[facility] LABCLIA [id number] [place] [address] [place] AMERICACalcium [Mass/Vol]9.7 mg/dLNormal8.5-10.2CVeterans Health AdministrationComment on above:Order Comment: Specimen Type: BLOOD SPECIMENOrdering Facility: [facility] Address:[address] [place], [place] [address]Performed By: #### 98381-4 ####[facility] LABCLIA [id number] [place] [address] [place] OF AMERICAChloride [Moles/Vol]107 mmol/KUdkofr33-094LhwzgewxhPremier Health on above:Order Comment: Specimen Type: BLOOD SPECIMENOrdering Facility: [facility] Address:[address] [place], [place] [address]Performed By: #### 75529-1 ####[facility] LABCLIA [id number] [place] [address] [place] AMERICACO2 [Moles/Vol]23 mmol/GNpkgyr57-04YaazmujsxCleveland Clinic Children's Hospital for Rehabilitationment on above:Order Comment: Specimen Type: BLOOD SPECIMENOrdering Facility: [facility] Address:[address] [place], [place] [address]Performed By: #### 52616- 2 ####[facility] LABIA [id number] [place] [address] [place] AMERICACreatinine [Mass/Vol]1.09 mg/dLNormal0.73-1.22 [facility] on above:Order Comment: Specimen Type: BLOOD SPECIMENOrdering Facility: [facility] Address:[address] [place], [place] [address]Performed By: #### 33433-0 ####[facility] LABIA [id number] [place] [address] [place] OF AMERICAeGFRcr SerPlBld CKD-EPI 846392 mL/min/1.73m???Normal>=60[facility] Comment on above:Order Comment: Specimen Type: BLOOD SPECIMENOrdering Facility: [facility] Address:[address] [place], [place] [address]Result Comment: Estimated Glomerular Filtration Rate (eGFR) is calculated using the 2020 CKD-EPI creatinine equation. This equation utilizes serum creatinine, sex, and age as parameters. The creatinine assay has traceable calibration to isotope dilution-mass spectrometry. Refer to KDIGO guidelines for clinical interpretation. In patients with unstable renal function, e.g. those with acute kidney injury, the eGFR may not accurately reflect actual GFR.Performed By: #### 55157-9 ####[facility] LABCLIA [id number] [place] [id number] [place] OF AMERICAGlucose [Mass/Vol]156 mg/dLHigh 74-99[facility] on above:Order Comment: Specimen Type: BLOOD SPECIMENOrdering Facility: [facility] Address:[address] [place], [place] [address]Result Comment: The [place] Diabetes Association (ADA) provides guidance for cutoff values for fasting glucose and random glucose. The ADA defines fasting as no caloric intake for at least 8 hours. Fasting plasma glucose results between 100 to 125 mg/dL indicate increased risk for diabetes (prediabetes).Fasting plasma glucose results greater than or equal to 126 mg/dL meet the criteria for diagnosis of diabetes. In the absence of unequivocal hyperglycemia, results should be confirmed by repeattesting. In a patient with classic symptoms of hyperglycemia or hyperglycemic crisis, random plasmaglucose results greater than or equal to 200 mg/dL meet the criteria for diagnosis of diabetes.Reference: Standards of Medical Care in Diabetes 2016, [place] [employer]. Diabetes Care. 2016.39(Suppl 1).Performed By: #### 14762-8 ####[facility] LABCLIA [id number] [place] [address] [place] AMERICAPotassium [Moles/Vol]4.1 mmol/LNormal3.7-5.1 [facility] on above:Order Comment: Specimen Type: BLOOD SPECIMENOrdering Facility: [facility] Address:[address] [place], [place] [address]Performed By: #### 53284-6 ####[facility] LABCLIA [id number] [place] [address] [place] AMERICASodium [Moles/Vol]143 mmol/DZpyhbp515-082WqbbasodfPremier Health on above: Order Comment: Specimen Type: BLOOD SPECIMENOrdering Facility: [facility] Address:[address] [place], [place] [address]Performed By: #### 01442- 2 ####[facility] LABCLIA [id number] [place] [address] [place] AMERICAUrea nitrogen [Mass/Vol]15 mg/dLNormal9-24 [facility] on above:Order Comment: Specimen Type: BLOOD SPECIMENOrdering Facility: [facility] Address:[address] [place], [place] [address]Performed By: #### 50472-3 ####[facility] LABIA [id number] [place] [address] [place] AMERICACBC panel Auto (Bld)on 37-22-0922Cqhkxlylnph distribution width (RBC) [Ratio]12.4 %Normal 11.5-15.0[facility] on above:Order Comment: Specimen Type: BLOOD SPECIMENOrdering Facility: [facility] Address:[address] [place], [place] [address]Performed By: #### 71678-2 ####[facility] LABCLIA [id number] [address] STATES [facility]FF[facility]O PSYCHIATRIC CENTERHematocrit (Bld) [Volume fraction]43.7 %Ifkyox84.0-51.0[facility] on above:Order Comment: Specimen Type: BLOOD SPECIMENOrdering Facility: [facility] Address:[address] [place], [place] [address]Performed By: #### 00606-9 ####[facility] LABIA [id number] [address] STATES AMERICAHemoglobin (Bld) [Mass/Vol]14.1 g/wDVpifkr09.0-17.0[facility] on above: Order Comment: Specimen Type: BLOOD SPECIMENOrdering Facility: [facility] Address:[address] [place], [place] [address]Performed By: #### 16413- 2 ####[facility] LABCLIA [id number] [place] [id number] [place] OF AMERICAMCH (RBC) [Entitic mass]30.7 dgArlmuw31.0-34.0 [facility] on above:Order Comment: Specimen Type: BLOOD SPECIMENOrdering Facility: [facility] Address:[address] [place], [place] [address]Performed By: #### 90777-3 ####[facility] LABCLIA [id number] [address]ETMCHC (RBC) [Mass/Vol]32.3 g/sZKvhvap47.5-36.0[facility] on above:Order Comment: Specimen Type: BLOOD SPECIMENOrdering Facility: [facility] Address:[address] [place], [place] [address]Performed By: #### 39774-7 ####[facility] LABCLIA [id number] [address]ETMCV (RBC) [Entitic vol]95.2 fL Lrmaoc08.0-100.0[facility] on above:Order Comment: Specimen Type: BLOOD SPECIMENOrdering Facility: [facility] Address:[address] [place], [place] [address]Performed By: #### 98625-9 ####[facility] LABIA [id number] [address] AMERICANucleated RBC (Bld) [#/Vol]10*3/uLNormal<0.01[facility] on above:Order Comment: Specimen Type: BLOOD SPECIMENOrdering Facility: [facility] Address:[address] [place], [place] [address]Performed By: #### 21476-8 ####[facility] LABIA [id number] [address] STATES OF AMERICAPlatelet mean volume (Bld) [Entitic vol]9.7 fLNormal9.0-12.7CVeterans Health Administration Comment on above:Order Comment: Specimen Type: BLOOD SPECIMENOrdering Facility: [facility] Address:[address] [place] [address] Performed By: #### 00120-2 ####[facility] LABCLIA [id number] [place] [address] [place] AMERICAPlatelets (Bld) [#/Vol] 176 10*3/iTXunzhs453-043QvnimmxkzPremier Health on above:Order Comment: Specimen Type: BLOOD SPECIMENOrdering Facility: [facility] Address:[address] [place], [place] [address]Performed By: #### 57148- 2 ####[facility] LABCLIA [id number] [place] [id number] [facility] DEVELOPMENTAL CENTERRB (Bld) [#/Vol]4.59 10*6/uLNormal4.20-6.00 [facility] on above:Order Comment: Specimen Type: BLOOD SPECIMENOrdering Facility: [facility] Address:[address] [place], [place] [address]Performed By: #### 48149-8 ####[facility] LABCLIA [id number] [address]W (Bld) [#/Vol]8.69 10*3/uLNormal3.70-11.00[facility] on above: Order Comment: Specimen Type: BLOOD SPECIMENOrdering Facility: [facility] Address:[address] [place], [place] [address]Performed By: #### 21732- 2 ####[facility] LABIA [id number] [address]ETCNCOon 68-38-7423BIVTKwpily TextNormalCVeterans Health AdministrationECG COMPLETEon 95-03-4521DIW COMPLETENormalCVeterans Health AdministrationHISTORY PHYSICALon 20-62-7280IQRBYNM PHYSICALNormalCVeterans Health AdministrationPT panel Coag (PPP)on 00-74-8688PDB Coag (PPP) [Relative time]3.2 {INR} High0.9-1.3COhio State Health System on above:Order Comment: Specimen Type: BLOOD SPECIMENOrdering Facility: [facility] Address:[address] [place], [place] [address]Result Comment: Vitamin K Antagonist (VKA) Therapeutic Range: INR 2 to 3 (Target INR of 2.5)Note: For patients treated with VKA drugs, such as warfarin, the [place] [employer] 2012 G ericaine recommends a therapeutic INR range of 2 to 3 (target INR of 2.5). This recommendation includes high-risk patients with antiphospholipid syndrome with previous arterial or venous thromboembolism, current-generation mechanical or bioprosthetic aortic heart valve replacement.Note: Patients with mechanical aortic valve replacement and additional risk factors for thromboembolic events (atrialfibrillation, previous thromboembolism, LV dysfunction, hypercoagulable conditions) or an older generation mechanical AVR (i.e., ball in-Cage) or any mechanical MVR should have a INR therapeutic range of 2.5 to 3.5 (target INR of 3).Ale GH, et al. Chest 2012, 141:7S-47SNishimura RA, et al. JAC 2017, 70: 252-289Performed By: #### 07745-6, 44677-6 ####[facility] LABCLIA [id number] [address] STATES OF AMERICAPT Coag (PPP) [Time]31.4 sHigh9.7-13.0[facility] on above:Order Comment: Specimen Type: BLOOD SPECIMENOrdering Facility: [facility] Address:[address] [place], [place] [address]Performed By: #### 68712- 9, 83342-4 ####[facility] LABCLIA [id number] [address] OF AMERICATYPE AND SCREEN,30 DAYon 11-13-9437ESJ ANormalCOhio State Health System on above:Order Comment: Specimen Type: BLOOD SPECIMENOrdering Facility: [facility] Address:[address] [place], [place] [address]Performed By: #### TSCR30 ####[facility] LABCLIA [id number] [place] [address] [place] AMERICARh Nom (Bld)PositiveNormalCOhio State Health System on above: Order Comment: Specimen Type: BLOOD SPECIMENOrdering Facility: [facility] Address:[address] [place], [place] [address]Performed By: #### TSCR30 ####[facility] LABCLIA [id number] [place] [address] [place] AMERICAUrinalysis complete panel (U)on 55-10-6725Aflmjafx LM.HPF (Urine sed) [#/Area]NegativeNormalNegativeUniversity Hospitals St. [facility] Comment on above:Order Comment: Specimen Type: URINE SPECIMENOrdering Facility: [facility] Address:[address] [place] [address] Performed By: #### 36298-2 ####[facility] LABCLIA [id number] [place] [id number] [place] AMERICABilirubin Ql (U)Negative NormalNegativePremier Health on above:Order Comment: Specimen Type: URINE SPECIMENOrdering Facility: [facility] Address:[address] [place], [place] [address]Performed By: #### 98182-6 ####[facility] LABCLIA [id number] [place] [address] [place] AMERICACALCIUM OXALATE CRYSTALS (UA)FewAbnormalNone SeenPremier Health on above:Order Comment: Specimen Type: URINE SPECIMENOrdering Facility: [facility] Address:[address] [place], [place] [address]Performed By: #### 84426-8 ####[facility] LABCLIA [id number] [place] [id number] [place] AMERICAClarity (Unsp spec) ClearNormalClearPremier Health on above:Order Comment: Specimen Type: URINE SPECIMENOrdering Facility: [facility] Address:[facility] [place], [place] [address]Performed By: #### 55624-6 ####[facility] LABCLIA [id number] [place] [address] [place] AMERICAColor (U)Dark YellowAbnormalYellowCleAshtabula County Medical Center on above:Order Comment: Specimen Type: URINE SPECIMENOrdering Facility: [facility] Address:[address] [place], [place] [address]Performed By: #### 25244-1 ####[facility] LABCLIA [id number] [place] [address] [place] AMERICAEpithelial cells LM.HPF (Urine sed) [#/Area]None SeenNormalCOhio State Health System on above: Order Comment: Specimen Type: URINE SPECIMENOrdering Facility: [facility] Address:[address] [place], [place] [address]Performed By: #### 97737- 8 ####[facility] LABCLIA [id number] [place] [address] [place] AMERICAGlucose Test strip (U) [Mass/Vol]NegativeNormal NegativePremier Health on above:Order Comment: Specimen Type: URINE SPECIMENOrdering Facility: [facility] Address:[address] [place], [place] [address]Performed By: #### 75205-0 ####[facility] LABIA [id number] [place] [address] [place] AMERICAHemoglobin Ql (U)NegativeNormalNegativePremier Health on above:Order Comment: Specimen Type: URINE SPECIMENOrdering Facility: [facility] Address:[address] [place] [address] Performed By: #### 35624-3 ####[facility] LABIA [id number] [place] [address] [place] AMERICAHyaline casts (Urine sed) [#/Area]0 /[LPF]Normal0 /LPFCOhio State Health System on above: Order Comment: Specimen Type: URINE SPECIMENOrdering Facility: [facility] Address:[address] [place], [place] [address]Performed By: #### 08702- 8 ####[facility] LABIA [id number] [place] [address] [place] [facility] ONTARIO HOSPITALKetones Ql (U)NegativeNormalNegativePremier Health on above:Order Comment: Specimen Type: URINE SPECIMENOrdering Facility: [facility] Address:[address] [place], [place] [address]Performed By: #### 58128-1 ####[facility] LABCLIA [id number] [address] STATES [facility] PSYCHIATRIC CENTERLeukocyte esterase Test strip Ql (U)NegativeNormalNegativeUniversity Hospitals St. [facility] Comment on above:Order Comment: Specimen Type: URINE SPECIMENOrdering Facility: [facility] Address:[address] [place] [address] Performed By: #### 35470-1 ####[facility] LABCLIA [id number] [place] [address] [place] AMERICANitrite Ql (U)Negative NormalNegativeCleveland Clinic Children's Hospital for Rehabilitationment on above:Order Comment: Specimen Type: URINE SPECIMENOrdering Facility: [facility] Address:[address] [place], [place] [address]Performed By: #### 00871-6 ####[facility] LABCLIA [id number] [place] [address] [place] [facility] ONT[facility] HOSPITALpH (U)5.0 [pH]Normal5.0-8.0[facility] John Medical CenterComment on above: Order Comment: Specimen Type: URINE SPECIMENOrdering Facility: [facility] Address:[address] [place], [place] [address]Performed By: #### 45695- 8 ####[facility] LABCLIA [id number] [place] [address] [place] AMERICAProtein (U) [Mass/Vol]NegativeNormalNegative [facility] on above:Order Comment: Specimen Type: URINE SPECIMENOrdering Facility: [facility] Address:[address] [place], [place] [address]Performed By: #### 40391-8 ####[facility] LABCLIA [id number] [place] [address] [place] [facility] ONTARIO HOSPITALRBC LM.HPF (Urine sed) [#/Area]0-2 /HPFNormal0-2 /HPFUniversity Hospitals St. John Medical Center Comment on above:Order Comment: Specimen Type: URINE SPECIMENOrdering Facility: [facility] Address:[address] [place] [address] Performed By: #### 19562-2 ####[facility] LABIA [id number] [place] [address] [place] [facility] ONT[facility]IO HOSPITALSpecific gravity (U) [Rel density]1.380Iuibeu9.005-1.030[facility] Medical CenterComhenry ford wy[facility] on above: Order Comment: Specimen Type: URINE SPECIMENOrdering Facility: [facility] Address:[address] [place], [place] [address]Performed By: #### 83551- 8 ####[facility] LABIA [id number] [place] [address] [place] [facility] ONT[facility]IO HOSPITALUrobilinogen Ql (U)0.2 EU/dLNormal0.2-1.0 EU/dL [facility] on above:Order Comment: Specimen Type: URINE SPECIMENOrdering Facility: [facility] Address:[address] [place], [place] [address]Performed By: #### 36337-1 ####[facility] HOSPITALIA [id number] [place] [address] [place] AMERICAWBC LM.HPF (Urine sed) [#/Area]0-5 /HPFNormal0-5 /HPFUniversity Hospitals St. [facility] Center Comment on above:Order Comment: Specimen Type: URINE SPECIMENOrdering Facility: [facility] Address:[address] [place] [address] Performed By: #### 78194-4 ####[facility] LABIA [id number] [place] [address] [place] AMERICAaPTT PPPon 01-09-2025 aPTT Coag (PPP) [Time]33.9 sHigh23.0-32.4COhio State Health System on above:Order Comment: Specimen Type: BLOOD SPECIMENOrdering Facility: [facility] Address:[address] [place], [place] [address]Result Comment: Frozen Plasma AliquotPerformed By: #### 95901-5, 48592-3 ####[facility] LABCLIA [id number] [place] [address] [facility]OPMENTAL CENTERCNOVon 81-16-1632RCIUScanlbUdzloalgzDelaware County HospitalCNOVSPon 12-30-[address] John Medical CenterCNPNon 17-03-3034PPYARsnyazPhmwgciks Clinic ClevelandBacteria Ur Culton 86-93-5048Ogblonhz identified Cx Nom (U) CULTURE, URINE: No growth (<100 CFU/ml)NormalPremier Health on above: Performed By: #### 630-4 ####[facility] LABCLIA [id number] [address]ETCNOVon 27-27-3745DRDJIeabwcYggbegxkhSelect Medical Specialty Hospital - Boardman, IncCYTOLOGY NON-GYNon 47-19-8859JL DISCLAIMEROhioHealth Dublin Methodist Hospital on above:Order Comment: Specimen Type: URINE SPECIMENOrdering Facility: [facility] Address:[address] [place], [place] [address]Result Comment: Laboratory Developed Test (LDT) Disclaimer:Performance characteristics of immunohistochemical, immunofluorescent, and chromogenic in-situ hybridization tests have been determined by the performing laboratory within the [facility] Department of Pathology and Laboratory Medicine([facility], [facility], [facility], [facility], [facility], [facility], or [facility]) in a manner consistent with CLIA requirements. One or more of these tests may not have been cleared or approved by the FDA. The [facility] Department of Pathology and Laboratory Medicine is regulated under CLIA as qualified to perform high-complexity testing. These tests are used for clinical purposes. These should not be rega rded as investigational or for research. Positive and negative controls stain appropriately.Performed By: #### CYTONON ####[facility] LABORATORYCLIA [id number] [place] [id number] [facility] LABCLIA [id number] [place] [id number] [place] STATES OF [facility] ONTARIO HOSPITALCASE REPORTNoAvita Health System on above:Order Comment: Specimen Type: URINE SPECIMENOrdering Facility: [facility] Address:[address] [place], [place] [address]Result Comment: Medical Cytology Report Case: [id number] Provider: Babak Hernández MD Collected: 12/21/2024 12:04 PMOrdering Location: Urology Received: 12/21/2024 04:01 PMPathologist: Charlene Doyle MDSpecimen: Urine, CystoscopicPerformed By: #### CYTONON ####[facility]ATORYCLIA [id number] [address] LABCLIA [id number] [facility] CENTERD [address] STATES OF [facility] ONTARIO HOSPITALCLINICAL HISTORYhistory of bladder CANormalPremier Health on above:Order Comment: Specimen Type: URINE SPECIMENOrdering Facility: [facility] Address:[address] [place], [place] [address]Performed By: #### CYTONON ####[facility]ORATORYCLIA [id number] [address] LABCLIA [id number] [facility] CENTERD [address], [place] [id number] [place] [address] STATES OF DARWIN FINAL DIAGNOSISNormalCOhio State Health System on above:Order Comment: Specimen Type: URINE SPECIMENOrdering Facility: [facility] Address:[address] [place], [place] [address]Result Comment: A - Urine, Cystoscopic High-grade urothelial carcinoma. at 1013 EDTPerformed By: #### CYTONON ####[facility]ORATORYCLIA [id number] [place] [id number] [facility] LABCLIA [id number] [place] [address] [place] [address] [place] [facility] ONTARIO HOSPITALFINAL PERFORMING LABNormal [facility] on above:Order Comment: Specimen Type: URINE SPECIMENOrdering Facility: [facility] Address:[address] [place], [place] [address]Result Comment: Technical component, medical artist screening performed at: [facility], [address] [place] [address], [place] [id number] CLIA: [id number] interpretation performed at: [facility], [address] [place] [address] CLIA# [id number] Director: RAH Jensenerformed By: #### CYTONON ####[facility] LABORATORYCLIA [id number] [address] LABCLIA [id number] [address] on above:Order Comment: Specimen Type: URINE SPECIMENOrdering Facility: [facility] Address:[address] [place], [place] [address]Result Comment: A. Urine, Ymmnylcngms13 cc clear yellow fluid . ThinPrep prepared.Performed By: #### CYTONON ####[facility] LABORATORYCLIA [id number] [address] LABCLIA [id number] [place] [id number] [facility]OPMENT[facility] CENTERBaephraim mcdowell [facility] metabolic panel (Bld)on 01-46-8329Quovy gap (Bld) [Moles/Vol]14 mmol/LNormal0-15[facility] on above:Order Comment: Specimen Type: BLOOD SPECIMENOrdering Facility: [facility] Address:[address] [place], [place] [address]Performed By: #### 03279-4 ####[facility]JAEM[facility] LABCLIA [id number] [place], [place] [address]Ezdtplz.ionized (Bld) [Moles/Vol]1.24 mmol/LNormal1.12-1.32[facility] on above: Order Comment: Specimen Type: BLOOD SPECIMENOrdering Facility: [facility] Address:[address] [place], [place] [address]Result Comment: Please note: This value represents ionized calcium not total calcium.Performed By: #### 89004-3 ####[facility] LABCLIA [id number] [place], [place] [address]Agvpvwwu [Moles/Vol]105 mmol/HYukgpl24-070UqdkqdlvjPremier Health on above:Order Comment: Specimen Type: BLOOD SPECIMENOrdering Facility: [facility] Address:[address] [place], [place] [address]Performed By: #### 18171-0 ####[facility] LABCLIA [id number] [place], [place] [address]Cvgfmtfffx [Mass/Vol]1.30 mg/dLNormal0.60-1.30[facility] on above: Order Comment: Specimen Type: BLOOD SPECIMENOrdering Facility: [facility] Address:[address] [place], [place] [address]Performed By: #### 98259- 0 ####[facility] LABCLIA [id number] [place], [place] [address]AHU/1.73 sq M.predicted among non-blacks MDRD (S/P/Bld) [Vol rate/Area]58 mL/min/1.73m???Low>=60[facility] on above:Order Comment: Specimen Type: BLOOD SPECIMENOrdering Facility: [facility] Address:[address] [place], [place] [address]Result Comment: Estimated Glomerular Filtration Rate (eGFR) is calculated using the 2020 CKD-EPI creatinine equation. This equation utilizes serum creatinine, sex, and age as parameters. The creatinine assay has traceable calibration to isotope dilution- mass spectrometry. Refer to KDIGO guidelines for clinical interpretation. In patients with unstable renal function, e.g. those with acute kidney injury, the eGFR may not accurately reflect actual GFR.Performed By: #### 76223-9 ####[facility] LABCLIA [id number] [place], [place] [address]Rmyaywb [Mass/Vol]125 mg/fDKmrx78-097OdtnyteqpPremier Health on above:Order Comment: Specimen Type: BLOOD SPECIMENOrdering Facility: [facility] Address:[address] [place], [place] [address]Performed By: #### 85687-7 ####[facility] LABIA [id number] [place], [place] [address]Oexwglvac [Moles/Vol]4.0 mmol/L Normal3.5-4.9COhio State Health System on above:Order Comment: Specimen Type: BLOOD SPECIMENOrdering Facility: [facility] Address:[address] [place], [place] [address]Performed By: #### 21859-2 ####[facility] LABIA [id number] [place] [address] CBC W Auto Differential panel (Bld)on 12-73-0015Jnroroigm (Bld) [#/Vol]0.04 10*3/uLNormal<0.11COhio State Health System on above:Order Comment: Specimen Type: BLOOD SPECIMENOrdering Facility: [facility] Address:[address] [place], [place] [address]Performed By: #### 98743-9 ####[facility] LABIA [id number] [place], [place] [address]Tszoixwfk/100 WBC (Bld)0.5 %NormalPremier Health on above:Order Comment: Specimen Type: BLOOD SPECIMENOrdering Facility: [facility] Address:[address] [place], [place] [address]Performed By: #### 76245-2 ####[facility] LABIA [id number] [place], [place] [address]Xkrtsficoqqi cell count method Nom (Bld)AutoNormalCOhio State Health System on above:Order Comment: Specimen Type: BLOOD SPECIMENOrdering Facility: [facility] Address:[address] [place], [place] [address]Performed By: #### 71870-6 ####[facility] LABCLIA [id number] [place], [place] [address]Rusyzigktlw (Bld) [#/Vol]0.20 10*3/uLNormal<0.46[facility] on above:Order Comment: Specimen Type: BLOOD SPECIMENOrdering Facility: [facility] Address:[address] [place], [place] [address]Performed By: #### 96508-2 ####[facility] LABIA [id number] [place], [place] [address]Gongnxybinr/100 WBC (Bld)2.5 %NormalCleveland Clinic Children's Hospital for Rehabilitationment on above:Order Comment: Specimen Type: BLOOD SPECIMENOrdering Facility: [facility] Address:[address] [place], [place] [address]Performed By: #### 19707-8 ####[facility] LABIA [id number] [place], [place] [address]Uaujerdsjls distribution width (RBC) [Ratio]13.6 %Normal 11.5-15.0[facility] on above:Order Comment: Specimen Type: BLOOD SPECIMENOrdering Facility: [facility] Address:[address] [place], [place] [address]Performed By: #### 45781-1 ####[facility] LABCLIA [id number] [place] [address] Hematocrit (Bld) [Volume fraction]38.9 %Low39.0-51.0[facility] Comment on above:Order Comment: Specimen Type: BLOOD SPECIMENOrdering Facility: [facility] Address:[address] [place] [address] Performed By: #### 48391-9 ####[facility] LABCLIA [id number] [place], [place] [address]Kxclwfutbl (Bld) [Mass/Vol]13.1 g/rCTnbcvt88.0-17.0[facility] on above:Order Comment: Specimen Type: BLOOD SPECIMENOrdering Facility: [facility] Address:[address] [place], [place] [address]Performed By: #### 94809-1 ####[facility] LABCLIA [id number] [place], [place] [address]Klqfgglb granulocytes (Bld) [#/Vol]0.04 10*3/uLNormal <0.10[facility] on above:Order Comment: Specimen Type: BLOOD SPECIMENOrdering Facility: [facility] Address:[address] [place], [place] [address]Performed By: #### 95286-4 ####[facility] LABIA [id number] [place], [place] [address]Kjfbdjti granulocytes/100 WBC (Bld)0.5 %NormalPremier Health on above: Order Comment: Specimen Type: BLOOD SPECIMENOrdering Facility: [facility] Address:[address] [place], [place] [address]Performed By: #### 65956- 8 ####[facility] LABIA [id number] [place], [place] [address]Lwgmlzqbkqc (Bld) [#/Vol]1.50 10*3/uLNormal1.00-4.00 [facility] on above:Order Comment: Specimen Type: BLOOD SPECIMENOrdering Facility: [facility] Address:[address] [place], [place] [address]Performed By: #### 82839-4 ####[facility] LABIA [id number] [place], [place] [address]Wcoaijswvnv/100 WBC (Bld)18.5 %NormalCleveland Clinic ClevelandComment on above:Order Comment: Specimen Type: BLOOD SPECIMENOrdering Facility: [facility] Address:[address] [place], [place] [address]Performed By: #### 85075-5 ####[facility] LABCLIA [id number] [place], [place] [address]CSQ (RBC) [Entitic mass]31.3 xoKfablp35.0-34.0[facility] on above:Order Comment: Specimen Type: BLOOD SPECIMENOrdering Facility: [facility] Address:[address] [place], [place] [address]Performed By: #### 66558-1 ####[facility] LABCLIA [id number] [place], [place] [address]WYLM (RBC) [Mass/Vol]33.7 g/nERzutrn38.5-36.0[facility] on above: Order Comment: Specimen Type: BLOOD SPECIMENOrdering Facility: [facility] Address:[address] [place], [place] [address]Performed By: #### 19480- 8 ####[facility] LABCLIA [id number] [place], [place] [address]UZB (RBC) [Entitic vol]92.8 hFHenrex33.0-100.0[facility] on above:Order Comment: Specimen Type: BLOOD SPECIMENOrdering Facility: [facility] Address:[address] [place], [place] [address]Performed By: #### 76938-9 ####[facility] LABCLIA [id number] [place], [place] [address]Vrukrwwfm (Bld) [#/Vol]0.76 10*3/uLNormal<0.87[facility] on above:Order Comment: Specimen Type: BLOOD SPECIMENOrdering Facility: [facility] Address:[address] [place], [place] [address]Performed By: #### 77372- 8 ####[facility] LABCLIA [id number] [place], [place] [address]Nmfacdyma/100 WBC (Bld)9.4 %NormalPremier Health on above:Order Comment: Specimen Type: BLOOD SPECIMENOrdering Facility: [facility] Address:[address] [place], [place] [address]Performed By: #### 30581-0 ####[facility] LABCLIA [id number] [place], [place] [address]Qapleburvew (Bld) [#/Vol]5.57 10*3/uLNormal1.45-7.50[facility] on above:Order Comment: Specimen Type: BLOOD SPECIMENOrdering Facility: [facility] Address:[address] [place], [place] [address]Performed By: #### 14901-7 ####[facility] LABCLIA [id number] [place], [place] [address]Ojhoyrbkaki/100 WBC (Bld)68.6 %NormalPremier Health on above:Order Comment: Specimen Type: BLOOD SPECIMENOrdering Facility: [facility] Address:[address] [place], [place] [address]Performed By: #### 99645-7 ####[facility] LABCLIA [id number] [place], [place] [address]Njfdvxzlv RBC (Bld) [#/Vol] 10*3/uLNormal<0.01[facility] on above:Order Comment: Specimen Type: BLOOD SPECIMENOrdering Facility: [facility] Address:[address] [place], [place] [address]Performed By: #### 69798-7 ####[facility] LABIA [id number] [place], [place] [address]Hsuautnfo RBC/100 WBC (Bld) [Ratio]0.0 /100 WBCNormal [facility] on above:Order Comment: Specimen Type: BLOOD SPECIMENOrdering Facility: [facility] Address:[address] [place], [place] [address]Performed By: #### 81504-9 ####[facility] LABCLIA [id number] [place], [place] [address]Yuihqadm mean volume (Bld) [Entitic vol]9.3 fLNormal9.0-12.7COhio State Health System on above:Order Comment: Specimen Type: BLOOD SPECIMENOrdering Facility: [facility] Address:[address] [place] [address] Performed By: #### 53887-5 ####[facility] LABCLIA [id number] [place], [place] [address]Xlagwltcb (Bld) [#/Vol]153 10*3/bCKcubtf729-525YhoofmdwiPremier Health on above:Order Comment: Specimen Type: BLOOD SPECIMENOrdering Facility: [facility] Address:[address] [place], [place] [address]Performed By: #### 76289-1 ####[facility] LABCLIA [id number] [place], [place] [address]JGX (Bld) [#/Vol]4.19 10*6/uLLow4.20-6.00[facility] on above:Order Comment: Specimen Type: BLOOD SPECIMENOrdering Facility: [facility] Address:[address] [place], [place] [address]Performed By: #### 63365-2 ####[facility] LABCLIA [id number] [place], [place] [address]GCU (Bld) [#/Vol]8.11 10*3/uL Normal3.70-11.00[facility] on above:Order Comment: Specimen Type: BLOOD SPECIMENOrdering Facility: [facility] Address:[address] [place], [place] [address]Performed By: #### 99233-6 ####[facility] LABCLIA [id number] [place], [place] [address]SM ABD/PEL W IVCONon 58-12-2308EV ABD/PEL W IVCONNormal [facility] Clebethesda north hospitalCT CHEST W IVCONon 07-74-6110AC CHEST W IVCONNormal [facility] Hospital for Rehabilitationp Metab 2000 Pnl SerPlon 75-53-7328EL1 [Moles/Vol] 24 mmol/LAxgphz22-01FkfyqjhgiPremier Health on above:Order Comment: Specimen Type: BLOOD SPECIMENOrdering Facility: [facility] Address:[address] [place], [place] [address]Performed By: #### 47498-8 ####[facility] LABCLIA [id number] [place], [place] [address]Mhgljwnbi By: #### 55130-3 ####[facility] LABCLIA [id number] [place], [place] [address]Zchfbc [Moles/Vol]143 mmol/FAlqhbr850-170CuccmasemPremier Health on above: Order Comment: Specimen Type: BLOOD SPECIMENOrdering Facility: [facility] Address:[address] [place], [place] [address]Performed By: #### 00381- 8 ####[facility] LABCLIA [id number] [place], [place] [address]Gtlqyslhd By: #### 20178-7 ####[facility] LABCLIA [id number] [place], [place] [address]Ylxc nitrogen [Mass/Vol]21 mg/dLNormal8-26[facility] on above:Order Comment: Specimen Type: BLOOD SPECIMENOrdering Facility: [facility] Address:[address] [place], [place] [address]Performed By: #### 75363- 8 ####[facility] LABCLIA [id number] [place], [place] [address]Twptymtxo By: #### 25641-7 ####[facility] LABCLIA [id number] [facility] [place], [place] [address]Zxsaicokttchn metabolic 2000 panelon 97-40-7221Lwdughi [Mass/Vol]4.0 g/dLNormal3.9-4.9 [facility] on above:Order Comment: Specimen Type: BLOOD SPECIMENOrdering Facility: [facility] Address:[address] [place], [place] [address]Performed By: #### 57230-0 ####[facility] LABCLIA [id number] [facility] SURPRISERACHELCLAM [place], [place] [address]SYI [Catalytic activity/Vol]82 U/YSrkvbs88-360ZbwikeurxPremier Health on above:Order Comment: Specimen Type: BLOOD SPECIMENOrdering Facility: [facility] Address:[address] [place], [place] [address]Performed By: #### 94987- 8 ####[facility] LABCLIA [id number] [facility] AT SURPR[place]ETODDT[place], [place] [address]IAB [Catalytic activity/Vol]21 U/RAigjjj02-15ExullgtjePremier Health on above:Order Comment: Specimen Type: BLOOD SPECIMENOrdering Facility: [facility] Address:[address] [place], [place] [address]Performed By: #### 42917-9 ####[facility] LABCLIA [id number] [facility]IRDROBBINAVENIR BE[facility] C[facility] AT [place]ETODDTUL[place], [place] [address]Amcrz gap [Moles/Vol]13 mmol/LNormal8-15[facility] on above:Order Comment: Specimen Type: BLOOD SPECIMENOrdering Facility: [facility] Address:[address] [place], [place] [address]Performed By: #### 76967- 8 ####[facility] LABCLIA [id number] [facility] AT SURPRISERACHELCLAM [place], [place] [address]NNQ [Catalytic activity/Vol]20 U/MUlxmhu57-49EkssfityaPremier Health on above:Order Comment: Specimen Type: BLOOD SPECIMENOrdering Facility: [facility] Address:[address] [place], [place] [address]Performed By: #### 75410-2 ####[facility] LABCLIA [id number] [facility] [place], [place] [address]Zctrstdyi [Mass/Vol]0.3 mg/dLNormal0.2-1.3COhio State Health System on above:Order Comment: Specimen Type: BLOOD SPECIMENOrdering Facility: [facility] Address:[address] [place], [place] [address]Performed By: #### 23107- 8 ####[facility] LABCLIA [id number] [facility] [place], [place] [address]Nveylwr [Mass/Vol]9.6 mg/dLNormal8.5-10.2COhio State Health System on above:Order Comment: Specimen Type: BLOOD SPECIMENOrdering Facility: [facility] Address:[address] [place], [place] [address]Performed By: #### 62464-0 ####[facility] LABCLIA [id number] [place], [place] [address]Puctcpet [Moles/Vol]106 mmol/L Newcor54-345UykwixecePremier Health on above:Order Comment: Specimen Type: BLOOD SPECIMENOrdering Facility: [facility] Address:[address] [place], [place] [address]Performed By: #### 84569-8 ####[facility] LABCLIA [id number] [place] [address] Creatinine [Mass/Vol]1.13 mg/dLNormal0.73-1.22[facility] on above:Order Comment: Specimen Type: BLOOD SPECIMENOrdering Facility: [facility] Address:[address] [place] [address] Performed By: #### 45271-6 ####[facility] LABCLIA [id number] [place], [place] [address]lFIJcw SerPlBld CKD-EPI 904423 mL/min/1.73m???Normal>=60[facility] on above:Order Comment: Specimen Type: BLOOD SPECIMENOrdering Facility: [facility] Address:[address] [place], [place] [address]Result Comment: Estimated Glomerular Filtration Rate (eGFR) is calculated using the 2020 CKD-EPI cre atinine equation. This equation utilizes serum creatinine, sex, and age as parameters. The creatinine assay has traceable calibration to isotope dilution- mass spectrometry. Refer to KDIGO guidelines for clinical interpretation. In patients with unstable renal function, e.g. those with acute kidney injury, the eGFR may not accurately reflect actual GFR.Performed By: #### 40715-2 ####[facility] LABCLIA [id number] [place], [place] [address]Ryxojau [Mass/Vol]126 mg/oYPiwy96-85WelchtpjdPremier Health on above:Order Comment: Specimen Type: BLOOD SPECIMENOrdering Facility: [facility] Address:[address] [place], [place] [address]Result Comment: The [place] [employer] (ADA) provides guidance for cutoff values for fasting glucose and random glucose. The ADA defines fasting as no caloric intake for at least 8 hours. Fasting plasma glucose results between 100 to 125 mg/dL indicate increased risk for diabetes (prediab etes).Fasting plasma glucose results greater than or equal to 126 mg/dL meet the criteria for diagnosis of diabetes. In the absence of unequivocal hyperglycemia, results should be confirmed by repeattesting. In a patient with classic symptoms of hyperglycemia or hyperglycemic crisis, random plasmaglucose results greater than or equal to 200 mg/dL meet the criteria for diagnosis of diabetes.Reference: Standards of Medical Care in Diabetes 2016, [place] [employer]. Diabetes Care. 2016.39(Suppl 1).Performed By: #### 77801-0 ####[facility] LABCLIA [id number] [place], [place] [address]Ugbqbiwdj [Moles/Vol]4.2 mmol/LNormal3.7-5.1COhio State Health System on above:Order Comment: Specimen Type: BLOOD SPECIMENOrdering Facility: [facility] Address:[address] [place] [address]Pegfxvelt By: #### 10214-9 ####[facility] LABCLIA [id number] [place], [place] [address]Jqqcncy [Mass/Vol]6.5 g/dLNormal6.3-8.0[facility] on above:Order Comment: Specimen Type: BLOOD SPECIMENOrdering Facility: [facility] Address:[address] [place] [address]Xqdicmdpn By: #### 67008- 8 ####[facility] LABCLIA [id number] [place], [place] [address]LETQjd 80-26-4551BOVHVpkevdIyuqupcad Clinic ClevelandCNOV on 43-95-3232PUBBTckxbaUjewhywqg Clinic ClevelandCC URINALYSIS COMPLETE PNL UR on 47-79-4963EKX BACTERIA #/AREA URNS HPFNegativeNegative /HPFNOMS HealthcareCCF BILIRUB UR QL STRIPNegativeNegativeNOMS HealthcareCCF CALCIUM OXALATE CRYSTALS (UA)FewAbnormalNone Seen /HPFNOMS HealthcareCCF CLARITY SPECClearClearNOMS HealthcareCCF COLOR URDark YellowAbnormalYellowNOMS HealthcareCCF EPI CELLS #/AREA URNS HPFNone Seen/HPFNOMS HealthcareCCF GLUCOSE UR STRIP-MCNCNegative NegativeNOMS HealthcareCCF HGB UR QL STRIP1+AbnormalNegativeNOMS HealthcareCCF HYALINE CASTS #/AREA URNS LPF0 /LPF0 /LPFNOMS HealthcareCCF KETONES UR QL STRIP NegativeNegativeNOMS HealthcareCCF LEUKOCYTE ESTERASE UR QL STRIP1+Abnormal NegativeNOMS HealthcareCCF NITRITE UR QL STRIPNegativeNegativeNOMS HealthcareCCF PH UR STRIP5.55.0 - 8.0NOMS HealthcareCCF PROT UR STRIP-MCNC2+AbnormalNegative NOMS HealthcareCCF RBC #/AREA URNS HPF6-10 /HPFAbnormal0-2 /HPFNOMS Healthcare CCF SP GR UR STRIP1.0241.005 - 1.030NOMS HealthcareCCF UROBILINOGEN UR QL STRIP 0.2 EU/dL0.2-1.0 EU/dLNOOR HealthcareCCF WBC #/AREA URNS HPF>20 /HPFAbnormal0-5 /HPFNOOR HealthcareInterpretation and review of laboratory resultsAbnoMercy Health [facility] HealthcareSpecimen Type: URINE SPECIMEN [facility] Address: [address] [place] [address] Original Ordering Provider: ARIANNE BETHEAOR HealthcareCNPNon 83-39-1575TCOJOyrmeyAkuljsetc Clinic ClevelandBacteria Ur Culton 10-19-2024 Bacteria identified Cx Nom (U)ORGANISM ID: 1 <10,000 CFU/ml Normal urogenital floraNoAvita Health System on above:Performed By: #### 68431-0, 630-4 ####[facility] LABCLIA [id number] [place] [address] [place] AMERICAUrinalysis complete panel (U)on 17-75-1924Imxpqtjg LM.HPF (Urine sed) [#/Area]NegativeNormalNegativePremier Health on above:Order Comment: Specimen Type: URINE SPECIMENOrdering Facility: [facility] Address:[address] [place], [place] [address]Performed By: #### 49634- 8, 630-4 ####[facility] LABCLIA [id number] [facility] [place] [address] [place] AMERICABilirubin Ql (U)Negative NormalNegAultman Orrville Hospital on above:Order Comment: Specimen Type: URINE SPECIMENOrdering Facility: [facility] Address:[address] [place], [place] [address]Performed By: #### 03656-1, 630-4 ####[facility] LABCLIA [id number] [place] [address] [place] AMERICACALCIUM OXALATE CRYSTALS (UA)FewAbnormalNone Seen Tai Clinic ClevelandComment on above:Order Comment: Specimen Type: URINE SPECIMENOrdering Facility: [facility] Address:[address] [place], [place] [address]Performed By: #### 89405-1, 630-4 ####[facility] LABCLIA [id number] [facility] CENTERNadege [facility]IN[facility] HOSP[place]ALK T42FIWNGNEQ[place], [place] [address] [place] AMERICAClarity (Unsp spec)ClearNormalClearUniversity Hospitals St. [facility] Medical Center Comment on above:Order Comment: Specimen Type: URINE SPECIMENOrdering Facility: [facility] Address:[address] [place] [address] Performed By: #### 01411-5, 630-4 ####[facility] LABCLIA [id number] [address], [facility]95 [place] Color (U)Dark YellowAbnormalYellowUniversity Hospitals St. John Medical CenterComment on above: Order Comment: Specimen Type: URINE SPECIMENOrdering Facility: [facility] Address:[address] [place], [place] [address]Performed By: #### 92854- 8, 630-4 ####[facility] LABCLIA [id number] [facility] CENTERNadege [address], [facility]95 [place] AMERICAEpithelial cells LM.HPF (Urine sed) [#/Area]None SeenNormCleveland Clinic Children's Hospital for RehabilitationComment on above: Order Comment: Specimen Type: URINE SPECIMENOrdering Facility: [facility] Address:[address] [place], [place] [address]Performed By: #### 53490- 8, 630-4 ####[facility] LABCLIA [id number] [facility] CENTERNadege [address] [place] [address] [place] AMERICAGlucose Test strip (U) [Mass/Vol]NegativeNormalNegativeUniversity Hospitals St. John Medical CenterComhenry ford [facility] on above:Order Comment: Specimen Type: URINE SPECIMENOrdering Facility: [facility] Address:[address] [place], [place] [address]Performed By: #### 72738- 8, 630-4 ####[facility] LABCLIA [id number] [address] [place] [address] [place] AMERICAHemoglobin Ql (U)1+ AbnormalNegativePremier Health on above:Order Comment: Specimen Type: URINE SPECIMENOrdering Facility: [facility] Address:[address] [place], [place] [address]Performed By: #### 40954-2, 630-4 ####[facility] LABCLIA [id number] [address], [facility]95 [place] AMERICAHyaline casts (Urine sed) [#/Area]0 /[LPF]Normal0 /LPFCOhio State Health System on above:Order Comment: Specimen Type: URINE SPECIMENOrdering Facility: [facility] Address:[address] [place], [place] [address]Performed By: #### 70819- 8, 630-4 ####[facility] LABCLIA [id number] [address], [place] [address] [place] AMERICAKetones Ql (U)Negative NormalNegativePremier Health on above:Order Comment: Specimen Type: URINE SPECIMENOrdering Facility: [facility] Address:[address] [place], [place] [address]Performed By: #### 39923-3, 630-4 ####[facility] LABCLIA [id number] [address], [facility]95 [place] AMERICALeukocyte esterase Test strip Ql (U)1+Abnormal NegativePremier Health on above:Order Comment: Specimen Type: URINE SPECIMENOrdering Facility: [facility] Address:[address] [place], [place] [address]Performed By: #### 33603-0, 630-4 ####[facility] LABCLIA [id number] [address] [place] [address] [place] AMERICANitrite Ql (U)NegativeNormalNegativePremier Health on above:Order Comment: Specimen Type: URINE SPECIMENOrdering Facility: [facility] Address:[address] [place], [place] [address]Performed By: #### 27489-5, 630-4 ####[facility] LABIA [id number] [address] ST[address]ETpH (U)5.5 [pH]Normal5.0-8.0[facility] on above:Order Comment: Specimen Type: URINE SPECIMENOrdering Facility: [facility] Address:[address] [place], [place] [address]Performed By: #### 78741-4, 630-4 ####[facility] LABIA [id number] [address]Protein (U) [Mass/Vol] 2+AbnormalNegativePremier Health on above:Order Comment: Specimen Type: URINE SPECIMENOrdering Facility: [facility] Address:[address] [place], [place] [address]Performed By: #### 89020-7, 630-4 ####[facility]ITAL[facility] [id number] [place] [address] [facility] SYSTEMRB LM.HPF (Urine sed) [#/Area]6- 10 /HPFAbnormal0-2 /HPFPremier Health on above:Order Comment: Specimen Type: URINE SPECIMENOrdering Facility: [facility] Address:[address] [place], [place] [address]Performed By: #### 00589-7, 630-4 ####[facility] LABIA [id number] [place] [id number] [facility] SYSTEMSpecific gravity (U) [Rel density]1.313Tewrio1.005-1.030[facility] on above:Order Comment: Specimen Type: URINE SPECIMENOrdering Facility: [facility] Address:[address] [place], [place] [address]Performed By: #### 63174- 8, 630-4 ####[facility] LABCLIA [id number] [facility] BRADENST[facility]K [id number] [address] [place] AMERICAUrobilinogen Ql (U)0.2 EU/dLNormal0.2-1.0 EU/dLPremier Health on above:Order Comment: Specimen Type: URINE SPECIMENOrdering Facility: [facility] Address:[address] [place], [place] [address]Performed By: #### 58224- 8, 630-4 ####[facility] LABCLIA [id number] FORTINO BRADENST. VINCENT'S CHILTONK [id number] [place] [address] [place] OF AMERICAWBC LM.HPF (Urine sed) [#/Area]/[HPF]Abnormal0-5 /HPFPremier Health on above:Order Comment: Specimen Type: URINE SPECIMENOrdering Facility: [facility] Address:[address] [place], [place] [address]Performed By: #### 41665- 8, 630-4 ####[facility] LABCLIA [id number] FORTINO [place] [address] [place] OF AMERICACNPNon 12-80-1428BPZZ NormalUniversity Hospitals St. John Medical CenterCNPNon 38-30-7212YSWIJwdsftWsucpnmss Clinic ClevelandCB W Auto Differential panel (Bld)on 77-54-0409Oxqbbwaup (Bld) [#/Vol] 10*3/uLNormal<0.11COhio State Health System on above:Order Comment: Specimen Type: BLOOD SPECIMENOrdering Facility: [facility] Address:[address] [place], [place] [address]Performed By: #### 70350-2 ####[facility] LABCLIA [id number] [place], [place] [address]Ncbclrysy/100 WBC (Bld)0.2 %[facility] on above:Order Comment: Specimen Type: BLOOD SPECIMENOrdering Facility: [facility] Address:[address] [place], [place] [address]Performed By: #### 57685-6 ####[facility] LABIA [id number] [place], [place] [address]Fnmawjcxgoag cell count method Nom (Bld)AutoNormalCOhio State Health System on above:Order Comment: Specimen Type: BLOOD SPECIMENOrdering Facility: [facility] Address:[address] [place], [place] [address]Performed By: #### 93715-1 ####[facility] LABCLIA [id number] [place], [place] [address]Nxelmpvevsp (Bld) [#/Vol]0.07 10*3/uLNormal<0.46[facility] on above:Order Comment: Specimen Type: BLOOD SPECIMENOrdering Facility: [facility] Address:[address] [place], [place] [address]Performed By: #### 24234-3 ####[facility] LABIA [id number] [place], [place] [address]Lcmojrcinnv/100 WBC (Bld)1.5 %NormalPremier Health on above:Order Comment: Specimen Type: BLOOD SPECIMENOrdering Facility: [facility] Address:[address] [place], [place] [address]Performed By: #### 46858-0 ####[facility] LABIA [id number] [place], [place] [address]Nhunlhasnek distribution width (RBC) [Ratio]13.9 %Normal 11.5-15.0[facility] on above:Order Comment: Specimen Type: BLOOD SPECIMENOrdering Facility: [facility] Address:[address] [place], [place] [address]Performed By: #### 63571-9 ####[facility] LABIA [id number] [place] [address] Hematocrit (Bld) [Volume fraction]41.9 %Cncuuh71.0-51.0[facility] on above:Order Comment: Specimen Type: BLOOD SPECIMENOrdering Facility: [facility] Address:[address] [place], [place] [address]Performed By: #### 31651-5 ####[facility] LABIA [id number] [place], [place] [address]Dvjzqfgigd (Bld) [Mass/Vol]13.7 g/bRCzlhdp18.0-17.0[facility] on above:Order Comment: Specimen Type: BLOOD SPECIMENOrdering Facility: [facility] Address:[address] [place], [place] [address]Performed By: #### 46096-7 ####[facility] LABIA [id number] [place], [place] [address]Rfnupfub granulocytes (Bld) [#/Vol]0.03 10*3/uLNormal <0.10[facility] on above:Order Comment: Specimen Type: BLOOD SPECIMENOrdering Facility: [facility] Address:[address] [place], [place] [address]Performed By: #### 58728-9 ####[facility] LABIA [id number] [place], [place] [address]Xbknberh granulocytes/100 WBC (Bld)0.6 %NormalPremier Health on above: Order Comment: Specimen Type: BLOOD SPECIMENOrdering Facility: [facility] Address:[address] [place], [place] [address]Performed By: #### 96866- 8 ####[facility] LABIA [id number] [place], [place] [address]Bioxfujwngk (Bld) [#/Vol]1.09 10*3/uLNormal1.00-4.00 [facility] on above:Order Comment: Specimen Type: BLOOD SPECIMENOrdering Facility: [facility] Address:[address] [place], [place] [address]Performed By: #### 45705-2 ####[facility] LABCLIA [id number] [place], [place] [address]Crhibacozbf/100 WBC (Bld)23.5 %NormalPremier Health on above:Order Comment: Specimen Type: BLOOD SPECIMENOrdering Facility: [facility] Address:[address] [place], [place] [address]Performed By: #### 33754-1 ####[facility] LABCLIA [id number] [place], [place] [address]QGP (RBC) [Entitic mass]29.2 czJjdygf07.0-34.0[facility] on above:Order Comment: Specimen Type: BLOOD SPECIMENOrdering Facility: [facility] Address:[address] [place], [place] [address]Performed By: #### 68569-2 ####[facility] LABCLIA [id number] [place], [place] [address]EVNO (RBC) [Mass/Vol]32.7 g/cLZfrzkt47.5-36.0[facility] on above: Order Comment: Specimen Type: BLOOD SPECIMENOrdering Facility: [facility] Address:[address] [place], [place] [address]Performed By: #### 67492- 8 ####[facility] LABCLIA [id number] [place], [place] [address]MGY (RBC) [Entitic vol]89.3 rZQyoibd43.0-100.0[facility] on above:Order Comment: Specimen Type: BLOOD SPECIMENOrdering Facility: [facility] Address:[address] [place], [place] [address]Performed By: #### 00175-8 ####[facility] LABIA [id number] [place], [place] [address]Sdnltfbqh (Bld) [#/Vol]0.35 10*3/uLNormal<0.87[facility] on above:Order Comment: Specimen Type: BLOOD SPECIMENOrdering Facility: [facility] Address:[address] [place], [place] [address]Performed By: #### 69060- 8 ####[facility] LABCLIA [id number] [place], [place] [address]Qlrkbrzmk/100 WBC (Bld)7.6 %NormalPremier Health on above:Order Comment: Specimen Type: BLOOD SPECIMENOrdering Facility: [facility] Address:[address] [place], [place] [address]Performed By: #### 23585-3 ####[facility] LABCLIA [id number] [place], [place] [address]Xskvmchmpja (Bld) [#/Vol]3.08 10*3/uLNormal1.45-7.50[facility] on above:Order Comment: Specimen Type: BLOOD SPECIMENOrdering Facility: [facility] Address:[address] [place], [place] [address]Performed By: #### 06034-5 ####[facility] LABCLIA [id number] [place], [place] [address]Jhvrfqpljvf/100 WBC (Bld)66.6 %NormalPremier Health on above:Order Comment: Specimen Type: BLOOD SPECIMENOrdering Facility: [facility] Address:[address] [place], [place] [address]Performed By: #### 58633-2 ####[facility] LABCLIA [id number] [place], [place] [address]Tjufmfgtp RBC (Bld) [#/Vol] 10*3/uLNormal<0.01[facility] on above:Order Comment: Specimen Type: BLOOD SPECIMENOrdering Facility: [facility] Address:[address] [place], [place] [address]Performed By: #### 21677-6 ####[facility] LABCLIA [id number] [place], [place] [address]Ddhodvwlo RBC/100 WBC (Bld) [Ratio]0.0 /100 WBCNormal [facility] on above:Order Comment: Specimen Type: BLOOD SPECIMENOrdering Facility: [facility] Address:[address] [place], [place] [address]Performed By: #### 05279-9 ####[facility] LABCLIA [id number] [place], [place] [address]Rzylsnek mean volume (Bld) [Entitic vol]8.6 fLLow9.0-12.7COhio State Health System on above:Order Comment: Specimen Type: BLOOD SPECIMENOrdering Facility: [facility] Address:[address] [place], [place] [address]Performed By: #### 98211-0 ####[facility] LABCLIA [id number] [place], [place] [address]Qnfxmutac (Bld) [#/Vol]81 10*3/iYScz089-955MqfpkhriqPremier Health on above:Order Comment: Specimen Type: BLOOD SPECIMENOrdering Facility: [facility] Address:[address] [place], [place] [address]Result Comment: No clot detected.Performed By: #### 26579-9 ####[facility] LABCLIA [id number] [place], [place] [address]GGW (Bld) [#/Vol]4.69 10*6/uLNormal4.20-6.00[facility] on above:Order Comment: Specimen Type: BLOOD SPECIMENOrdering Facility: [facility] Address:[address] [place], [place] [address]Performed By: #### 66230-8 ####[facility] LABCLIA [id number] [place], [place] [address]GKI (Bld) [#/Vol]4.63 10*3/uLNormal3.70-11.00[facility]. John Medical CenterComment on above: Order Comment: Specimen Type: BLOOD SPECIMENOrdering Facility: [facility] Address:[place]andeep MARTÍNEZSY[place], [place] [address]Mzjnddkgm By: #### 80408- 8 ####[facility] LABCLIA [id number] [place], [place] [address]MJT CBC W AUTO DIFF BLDon 38-05-6548Ajauwjlkv/100 WBC (Bld)0.2 %[facility] BASOPHILS # BLD AUTO<0.03NILincoln County Health System DIFFERENTIAL METHOD BLDAutoNOMWestern Missouri Medical CenterCCF EOSINOPHIL # BLD AUTO0.07NIBaptist Memorial HospitalCCF LYMPHOCYTES # BLD AUTO1.09NOLake Regional Health SystemF MONOCYTES # BLD AUTO 0.35NIHenderson County Community HospitalF NEUTROPHILS # BLD AUTO3.08[facility] HospitalCCF NRBC # BLD AUTO<0.01NINFSSM RehabF NRBC/100 WBC BLD-RTO0/100 WBCGolden Valley Memorial Hospital CCF PLATELET # BLD [id number] Valley Memorial HospitalComment on above:No clot detected.CCF PMV BLD AUTO8.6 fLLow9.0 - 12.7 fLGolden Valley Memorial HospitalCCF WBC # BLD AUTO4.63[facility] HospitalEosinophils/100 WBC (Bld)1.5 %[facility] HospitalErythrocyte distribution width (RBC) [Ratio]13.9 %11.5 - 15.0 %[facility] HospitalHematocrit (Bld) [Volume fraction]41.9 %39.0 - 51.0 %[facility] HospitalHemoglobin (Bld) [Mass/Vol]13.7 g/dL 13.0 - 17.0 g/dLNevada Regional Medical Center GRANULOCYTES # BLD AUTO0.03NIStarr Regional Medical Center GRANULOCYTES/LEUK NFR BLD AUTO0.6 %[facility] HospitalInterpretation and review of laboratory resultsAbnormSpecial Care HospitalLymphocytes/100 WBC (Bld) 23.5 %[facility] (RBC) [Entitic mass]29.2 pg26.0 - 34.0 pgMissouri Rehabilitation CenterHC (RBC) [Mass/Vol]32.7 g/dL30.5 - 36.0 g/dLMissouri Rehabilitation CenterV (RBC) [Entitic vol]89.3 fL80.0 - 100.0 fLLAYTON HOSPITAL HealthcareMonocytes/100 WBC (Bld)7.6 % [facility] HealthcareNeutrophils/100 WBC (Bld)66.6 %[facility] HealthcareRBC (Bld) [#/Vol] 4.69 10*6/uL4.20 - 6.00 m/uLNOOR HealthcareSpecimen Type: BLOOD SPECIMEN [facility] Address: [address] [place] [address] Original Ordering Provider: ARIANNE BETHEACrittenton Behavioral HealthCNNURSEon 72-97-0049CEUOGFGEpghsrKxfrcymix Clinic ClevelandCNOVSPon 42-89-8029BTPIWRTrhzis [facility]. John Medical CenterComprehensive metabolic 2000 panelon 01-63-0668Qbpemje [Mass/Vol]4.2 g/dLNormal3.9-4.9COhio State Health System on above:Order Comment: Specimen Type: BLOOD SPECIMENOrdering Facility: [facility] Address:[address] [place], [place] [address]Performed By: #### 43880- 9, 39961-3 ####[facility] LABCLIA [id number] [place], [place] [address]JTW [Catalytic activity/Vol]87 U/HXnfwss46-969 [facility] on above:Order Comment: Specimen Type: BLOOD SPECIMENOrdering Facility: [facility] Address:[address] [place], [place] [address]Performed By: #### 17216-9, 56444-3 ####[facility] LABCLIA [id number] [place], [place] [address]VXJ [Catalytic activity/Vol]21 U/MRlatss97-94KdehjwyxsPremier Health on above:Order Comment: Specimen Type: BLOOD SPECIMENOrdering Facility: [facility] Address:[address] [place], [place] [address]Performed By: #### 23982-3, 99423-3 ####[facility] LABCLIA [id number] [place], [place] [address]Oaapm gap [Moles/Vol]8 mmol/LNormal8-15 [facility] on above:Order Comment: Specimen Type: BLOOD SPECIMENOrdering Facility: [facility] Address:[address] [place], [place] [address]Performed By: #### 91195-5, 65093-3 ####[facility] LABCLIA [id number] [place], [place] [address]IOF [Catalytic activity/Vol]17 U/LZeinxn44-42GfcfkmhnuPremier Health on above:Order Comment: Specimen Type: BLOOD SPECIMENOrdering Facility: [facility] Address:[address] [place], [place] [address]Performed By: #### 40915-4, 38637-7 ####[facility] LABCLIA [id number] [place], [place] [address]Lrjuwjvfp [Mass/Vol]0.2 mg/dLNormal0.2-1.3 [facility] on above:Order Comment: Specimen Type: BLOOD SPECIMENOrdering Facility: [facility] Address:[address] [place], [place] [address]Performed By: #### 12153-7, 24701-7 ####[facility] LABCLIA [id number] [place], [place] [address]Ltkfwzq [Mass/Vol]9.8 mg/dLNormal8.5-10.2COhio State Health System on above: Order Comment: Specimen Type: BLOOD SPECIMENOrdering Facility: [facility] Address:[address] [place], [place] [address]Performed By: #### 49105- 9, 58225-8 ####[facility] LABCLIA [id number] [place], [place] [address]Bbgfyahf [Moles/Vol]106 mmol/EOuooff24-531NlwcdradsPremier Health on above:Order Comment: Specimen Type: BLOOD SPECIMENOrdering Facility: [facility] Address:[address] [place] [address]Ndwvrwcdt By: #### 50523-9, 44766-4 ####[facility] LABCLIA [id number] [place], [place] [address]ED5 [Moles/Vol]26 mmol/QWakurn81-61OsbxpzqrvPremier Health on above:Order Comment: Specimen Type: BLOOD SPECIMENOrdering Facility: [facility] Address:[address] [place] [address]Zzqhflkwq By: #### 49937- 9, ####[facility] LABCLIA [id number] [place], [place] [address]Fyxbmewiyi [Mass/Vol]1.11 mg/dLNormal0.73-1.22 [facility] on above:Order Comment: Specimen Type: BLOOD SPECIMENOrdering Facility: [facility] Address:[address] [place] [address]Cnckzlvlq By: #### 73983-3, ####[facility] LABCLIA [id number] [place], [place] [address]zEXHic SerPlBld CKD-EPI 626910 mL/min/1.73m???Normal>=60[facility] Comment on above:Order Comment: Specimen Type: BLOOD SPECIMENOrdering Facility: [facility] Address:[address] [place] [address]Gcrlio Comment: Estimated Glomerular Filtration Rate (eGFR) is calculated using the 2020 CKD-EPI creatinine equation. This equation utilizes serum creatinine, sex, and age as parameters. The creatinine assay has traceable calibration to isotope dilution-mass spectrometry. Refer to KDIGO guidelines for clinical interpretation. In patients with unstable renal function, e.g. those with acute kidney injury, the eGFR may not accurately reflect actual GFR.Performed By: #### 85158-7, 35813-9 ####[facility] LABCLIA [id number] [place], [place] [address]Akfhhzp [Mass/Vol]128 mg/pIHvvj69-80 [facility] on above:Order Comment: Specimen Type: BLOOD SPECIMENOrdering Facility: [facility] Address:[address] [place], [place] [address]Result Comment: The [place] Diabetes Association (ADA) provides guidance for cutoff values for fasting glucose and random glucose. The ADA defines fasting as no caloric intake for at least 8 hours. Fasting plasma glucose results between 100 to 125 mg/dL indicate increased risk for diabetes (prediabetes).Fasting plasma glucose results greater than or equal to 126 mg/dL meet the criteria for diagnosis of diabetes. In the absence of unequivocal hyperglycemia, results should be confirmed by repeattesting. In a patient with classic symptoms of hyperglycemia or hyperglycemic crisis, random plasmaglucose results greater than or equal to 200 mg/dL meet the criteria for diagnosis of diabetes.Reference: Standards of Medical Care in Diabetes 2016, [place] [employer]. Diabetes Care. 2016.39(Suppl 1).Performed By: #### 76264- 9, 56899-0 ####[facility] LABCLIA [id number] [place], [place] [address]Qhvvkcpif [Moles/Vol]4.2 mmol/LNormal3.7-5.1 [facility] on above:Order Comment: Specimen Type: BLOOD SPECIMENOrdering Facility: [facility] Address:[address] [place], [place] [address]Performed By: #### 91076-9, ####[facility] LABCLIA [id number] [place], [place] [address]Yrpcgcd [Mass/Vol]6.9 g/dLNormal6.3-8.0[facility] on above:Order Comment: Specimen Type: BLOOD SPECIMENOrdering Facility: [facility] Address:[address] [place], [place] [address]Performed By: #### 71166- 9, 22278-3 ####[facility] LABCLIA [id number] [place], [place] [address]Ohrvyh [Moles/Vol]140 mmol/VHjderx907-313VjhxtcjymPremier Health on above:Order Comment: Specimen Type: BLOOD SPECIMENOrdering Facility: [facility] Address:[address] [place], [place] [address]Performed By: #### 20959-8, 30899-5 ####[facility] LABCLIA [id number] [place], [place] [address]Xgtt nitrogen [Mass/Vol]20 mg/dLNormal9-24[facility]. John Medical CenterComment on above: Order Comment: Specimen Type: BLOOD SPECIMENOrdering Facility: [facility] Address:[address] [place], [place] [address]Performed By: #### 35498- 9, 69421-9 ####[facility] LABCLIA [id number] [place], [place] [address]Yztzddkdy SerPl-mCncon 87-68-5718Sllqffclz [Mass/Vol]1.9 mg/dLNormal1.7-2.3CVeterans Health AdministrationComhenry ford [facility] on above:Order Comment: Specimen Type: BLOOD SPECIMENOrdering Facility: [facility] Address:[address] [place], [place] [address]Performed By: #### 10011- 9, 20500-6 ####[facility] LABCLIA [id number] [place], [place] [address]TGJVZGBhm 23-65-7833XSCYHVMEvfswnWssafwewl Clinic ClevelandCNOVon 45-03-8247GOCIGquvzwJhcxdzcak B[facility] Regional HospitalBacteria Ur Culton 50-06-3377Wysgknvt identified Cx Nom (U)ORGANISM ID: 1 10,000 -<50,000 CFU/ml Normal urogenital floraNormalCVeterans Health Administration Comment on above:Performed By: #### 630-4 ####[facility] LABCLIA [id number] [address] AMERICACBC W Auto Differential panel (Bld)on 73-21-7180Awstdypnv (Bld) [#/Vol] 0.04 10*3/uLNormal<0.11COhio State Health System on above:Order Comment: Specimen Type: BLOOD SPECIMENOrdering Facility: [facility] Address:[address] [place], [place] [address]Performed By: #### 42744-7 ####[facility] LABCLIA [id number] [place], [place] [address]Gaojdwntv/100 WBC (Bld)0.5 %NormalPremier Health on above:Order Comment: Specimen Type: BLOOD SPECIMENOrdering Facility: [facility] Address:[address] [place], [place] [address]Performed By: #### 36317-4 ####[facility] LABCLIA [id number] [place], [place] [address]Uqmllxmnymqb cell count method Nom (Bld)AutoNormalCOhio State Health System on above:Order Comment: Specimen Type: BLOOD SPECIMENOrdering Facility: [facility] Address:[address] [place], [place] [address]Performed By: #### 04466-8 ####[facility] LABCLIA [id number] [place], [place] [address]Licourklhxl (Bld) [#/Vol]0.16 10*3/uLNormal<0.46[facility] on above:Order Comment: Specimen Type: BLOOD SPECIMENOrdering Facility: [facility] Address:[address] [place], [place] [address]Performed By: #### 85495-3 ####[facility] LABCLIA [id number] [place], [place] [address]Ryxcyktuemg/100 WBC (Bld)2.2 %NormalPremier Health on above:Order Comment: Specimen Type: BLOOD SPECIMENOrdering Facility: [facility] Address:[address] [place], [place] [address]Performed By: #### 53722-5 ####[facility] LABIA [id number] [place], [place] [address]Jelzvwhgbxu distribution width (RBC) [Ratio]13.5 %Normal 11.5-15.0[facility] on above:Order Comment: Specimen Type: BLOOD SPECIMENOrdering Facility: [facility] Address:[address] [place], [place] [address]Performed By: #### 61444-7 ####[facility] LABIA [id number] [place] [address] Hematocrit (Bld) [Volume fraction]42.3 %Bjowck36.0-51.0[facility] on above:Order Comment: Specimen Type: BLOOD SPECIMENOrdering Facility: [facility] Address:[address] [place], [place] [address]Performed By: #### 60943-4 ####[facility] LABIA [id number] [place], [place] [address]Qiwfgxzvkv (Bld) [Mass/Vol]13.9 g/bSFddtgx86.0-17.0[facility] on above:Order Comment: Specimen Type: BLOOD SPECIMENOrdering Facility: [facility] Address:[address] [place], [place] [address]Performed By: #### 59391-5 ####[facility] LABIA [id number] [place], [place] [address]Khscmngl granulocytes (Bld) [#/Vol]10*3/uLNormal<0.10 [facility] on above:Order Comment: Specimen Type: BLOOD SPECIMENOrdering Facility: [facility] Address:[address] [place], [place] [address]Performed By: #### 19899-3 ####[facility] LABIA [id number] [place], [place] [address]Dkzstuft granulocytes/100 WBC (Bld)0.3 %NormalPremier Health on above: Order Comment: Specimen Type: BLOOD SPECIMENOrdering Facility: [facility] Address:[address] [place], [place] [address]Performed By: #### 14115- 8 ####[facility] LABCLIA [id number] [place], [place] [address]Jtrzqjigqub (Bld) [#/Vol]1.21 10*3/uLNormal1.00-4.00 [facility] on above:Order Comment: Specimen Type: BLOOD SPECIMENOrdering Facility: [facility] Address:[address] [place], [place] [address]Performed By: #### 64601-2 ####[facility] LABCLIA [id number] [place], [place] [address]Emmxwlbaozm/100 WBC (Bld)16.5 %NormalPremier Health on above:Order Comment: Specimen Type: BLOOD SPECIMENOrdering Facility: [facility] Address:[address] [place], [place] [address]Performed By: #### 86472-7 ####[facility] LABCLIA [id number] [place], [place] [address]WTD (RBC) [Entitic mass]29.0 awBzoygr37.0-34.0[facility] on above:Order Comment: Specimen Type: BLOOD SPECIMENOrdering Facility: [facility] Address:[address] [place], [place] [address]Performed By: #### 79653-0 ####[facility] LABCLIA [id number] [place], [place] [address]BYOE (RBC) [Mass/Vol]32.9 g/pNPhiyxn46.5-36.0[facility] on above: Order Comment: Specimen Type: BLOOD SPECIMENOrdering Facility: [facility] Address:[address] [place], [place] [address]Performed By: #### 69005- 8 ####[facility] LABCLIA [id number] [place], [place] [address]HWP (RBC) [Entitic vol]88.1 mMVxadsf98.0-100.0[facility] on above:Order Comment: Specimen Type: BLOOD SPECIMENOrdering Facility: [facility] Address:[address] [place], [place] [address]Performed By: #### [id number] ####[facility] LABCLIA [id number] [place], [place] [address]Tqwibrhfq (Bld) [#/Vol]0.47 10*3/uLNormal<0.87[facility] on above:Order Comment: Specimen Type: BLOOD SPECIMENOrdering Facility: [facility] Address:[address] [place], [place] [address]Performed By: #### [id number]- [id number] ####[facility] LABCLIA [id number] [place], [place] [address]Jnwjqceev/100 WBC (Bld)6.4 %NormalPremier Health on above:Order Comment: Specimen Type: BLOOD SPECIMENOrdering Facility: [facility] Address:[address] [place], [place] [address]Performed By: #### [id number] ####[facility] LABIA [id number] [place], [place] [address]Ryiubpsoajt (Bld) [#/Vol]5.42 10*3/uLNormal1.45-7.50[facility] on above:Order Comment: Specimen Type: BLOOD SPECIMENOrdering Facility: [facility] Address:[address] [place], [place] [address]Performed By: #### [id number] ####[facility] LABIA [id number] [place], [place] [address]Vlcissmmcri/100 WBC (Bld)74.1 %NormalPremier Health on above:Order Comment: Specimen Type: BLOOD SPECIMENOrdering Facility: [facility] Address:[address] [place], [place] [address]Performed By: #### [id number] ####[facility] LABCLIA [id number] [place], [place] [address]Fozeeertn RBC (Bld) [#/Vol] 10*3/uLNormal<0.01[facility] on above:Order Comment: Specimen Type: BLOOD SPECIMENOrdering Facility: [facility] Address:[address] [place], [place] [address]Performed By: #### 79737-1 ####[facility] LABCLIA [id number] [place], [place] [address]Rkmqnwkkt RBC/100 WBC (Bld) [Ratio]0.0 /100 WBCNormal [facility] on above:Order Comment: Specimen Type: BLOOD SPECIMENOrdering Facility: [facility] Address:[address] [place], [place] [address]Performed By: #### 03652-7 ####[facility] LABCLIA [id number] [place], [place] [address]Fchgnzqv mean volume (Bld) [Entitic vol]9.1 fLNormal9.0-12.7COhio State Health System on above:Order Comment: Specimen Type: BLOOD SPECIMENOrdering Facility: [facility] Address:[address] [place] [address] Performed By: #### 89703-4 ####[facility] LABCLIA [id number] [place] [address]Tnxeegwsc (Bld) [#/Vol]116 10*3/xIClg214-671FvnbpfmnuPremier Health on above:Order Comment: Specimen Type: BLOOD SPECIMENOrdering Facility: [facility] Address:[address] [place], [place] [address]Performed By: #### 94923-3 ####[facility] LABCLIA [id number] [place], [place] [address]QUO (Bld) [#/Vol]4.80 10*6/uLNormal4.20-6.00[facility] on above:Order Comment: Specimen Type: BLOOD SPECIMENOrdering Facility: [facility] Address:[address] [place], [place] [address]Performed By: #### 73563-2 ####[facility] LABCLIA [id number] [place], [place] [address]BFT (Bld) [#/Vol]7.32 10*3/uLNormal3.70-11.00[facility] on above: Order Comment: Specimen Type: BLOOD SPECIMENOrdering Facility: [facility] Address:[address] [place], [place] [address]Performed By: #### 13549- 8 ####[facility] LABCLIA [id number] [place], [place] [address]VZI CBC W AUTO DIFF BLDon 74-25-7016Qdwqtywlh/100 WBC (Bld)0.5 %[facility] HealthcareCCF BASOPHILS # BLD AUTO0.04NILincoln County Health System DIFFERENTIAL METHOD BLDAutoNOMSaint Louis University Health Science Center EOSINOPHIL # BLD AUTO0.16NIHenderson County Community HospitalF LYMPHOCYTES # BLD AUTO1.21NOLake Regional Health SystemF MONOCYTES # BLD AUTO 0.47NINFNOCrittenton Behavioral HealthCCF NEUTROPHILS # BLD AUTO5.42NOLake Regional Health SystemF NRBC # BLD AUTO<0.01NINFSSM RehabF NRBC/100 WBC BLD-RTO0/100 WBCNOCrittenton Behavioral Health CCF PLATELET # BLD BKRC775MprTHTXSSM RehabF PMV BLD AUTO9.1 fL9.0 - 12.7 fL [facility]OM[facility] HealthcareCCF WBC # BLD AUTO7.32NOCrittenton Behavioral HealthEosinophils/100 WBC (Bld)2.2 %NOMS HealthcareErythrocyte distribution width (RBC) [Ratio]13.5 %11.5 - 15.0 % [facility] HealthcareHematocrit (Bld) [Volume fraction]42.3 %39.0 - 51.0 %[facility] HospitalHemoglobin (Bld) [Mass/Vol]13.9 g/dL13.0 - 17.0 g/dLGolden Valley Memorial HospitalIMM GRANULOCYTES # BLD AUTO<0.03NINFNevada Regional Medical Center GRANULOCYTES/LEUK NFR BLD AUTO0.3 %[facility] HealthcareInterpretation and review of laboratory resultsAbnormal [facility] HospitalLymphocytes/100 WBC (Bld)16.5 %[facility] HospitalMCH (RBC) [Entitic mass]29 pg26.0 - 34.0 pgMissouri Rehabilitation CenterHC (RBC) [Mass/Vol]32.9 g/dL30.5 - 36.0 g/dLMissouri Rehabilitation CenterV (RBC) [Entitic vol]88.1 fL80.0 - 100.0 fLGolden Valley Memorial Hospital Monocytes/100 WBC (Bld)6.4 %[facility] HospitalNeutrophils/100 WBC (Bld)74.1 %[facility] HealthcareRBC (Bld) [#/Vol]4.8 10*6/uL4.20 - 6.00 m/uLLAYTON HOSPITAL HealthcareSpecimen Type: BLOOD SPECIMEN [facility] Address: [address] [place], [place] [address] Original Ordering Provider: NATALY SALGADO HealthcareCNNURSEon 68-46-7353TXMBLQSCtpsfcUixjqqxka Clinic ClevelandCNOVSPon 34-24-2998ESMKIIQjlgby [facility] John Medical CenterComprehensive metabolic 2000 panelon 05-18-7858Dthpgjl [Mass/Vol]4.0 g/dLNormal3.9-4.9CVeterans Health AdministrationComment on above:Order Comment: Specimen Type: BLOOD SPECIMENOrdering Facility: [facility] Address:[address] [place], [place] [address]Performed By: #### 92999- 8 ####[facility] LABCLIA [id number] [place], [place] [address]UPI [Catalytic activity/Vol]87 U/GDaduuc93-464WzmhzgwcpPremier Health on above:Order Comment: Specimen Type: BLOOD SPECIMENOrdering Facility: [facility] Address:[address] [place], [place] [address]Performed By: #### 00728-7 ####[facility] LABCLIA [id number] [facility] BIRDROBBINAVENIR BE[facility] [place] [place]ERAC[place] [address]TXB [Catalytic activity/Vol]21 U/WVmfrao34-28BblcumxqhPremier Health on above:Order Comment: Specimen Type: BLOOD SPECIMENOrdering Facility: [facility] Address:[address] [place], [place] [address]Performed By: #### 78244- 8 ####[facility] LABCLIA [id number] [facility] WORLEYAVENIR BEH[facility] C[facility] AT SURPRISETODDTULSA, [place] [address]Pxzbz gap [Moles/Vol]11 mmol/LNormal8-15[facility] on above:Order Comment: Specimen Type: BLOOD SPECIMENOrdering Facility: [facility] Address:[address] [place], [place] [address]Performed By: #### 57420-5 ####[facility] LABCLIA [id number] [facility] SUR[facility] HOSPITALROBBINAVENIR BEHAVIORAL HEALTH CENTER AT SURPRISERACHELCLAM [place], [place] [address]URJ [Catalytic activity/Vol]16 U/YPkehvy66-03PafgasuowPremier Health on above:Order Comment: Specimen Type: BLOOD SPECIMENOrdering Facility: [facility] Address:[address] [place], [place] [address]Performed By: #### 58786-3 ####[facility] LABCLIA [id number] [place] [address] Bilirubin [Mass/Vol]0.2 mg/dLNormal0.2-1.3COhio State Health System on above:Order Comment: Specimen Type: BLOOD SPECIMENOrdering Facility: [facility] Address:[address] [place], [place] [address]Performed By: #### 46023-2 ####[facility] LABCLIA [id number] [facility] SURGEONS HOS[place]ITALROBBINSNOW, [place] [address]Dadplvy [Mass/Vol]9.6 mg/dLNormal8.5-10.2COhio State Health System on above:Order Comment: Specimen Type: BLOOD SPECIMENOrdering Facility: [facility] Address:[address] [place], [place] [address]Performed By: #### 21701-8 ####[facility] LABCLIA [id number] [facility] SURGEONS HOS[place]ITALROBBINSNOW, [place] [address]Ogfhofaf [Moles/Vol]107 mmol/DHzowgm22-236OlhmngmkvPremier Health on above: Order Comment: Specimen Type: BLOOD SPECIMENOrdering Facility: [facility] Address:[address] [place], [place] [address]Performed By: #### 96326- 8 ####[facility] LABCLIA [id number] [facility] [place], [place] [address]GY0 [Moles/Vol]22 mmol/DGwbbmq71-06XbwverdxlPremier Health on above:Order Comment: Specimen Type: BLOOD SPECIMENOrdering Facility: [facility] Address:[address] [place], [place] [address]Performed By: #### 71385-6 ####[facility] LABCLIA [id number] [facility] SURGE[facility] HOSPITALROBBINSNOW, [place] [address]Gumovzkpgy [Mass/Vol]0.97 mg/dL Normal0.73-1.22[facility] on above:Order Comment: Specimen Type: BLOOD SPECIMENOrdering Facility: [facility] Address:[address] [place], [place] [address]Performed By: #### 10333-5 ####[facility] LABCLIA [id number] [facility] BRUNILDAAVENIR BEHAVIORAL HEALTH CENTER AT SURPRISETODDTULSA, [place] [address]Yiqmjfzhtp and Glomerular filtration rate.predicted panel (S/P/Bld)82 mL/min/1.73m???Normal>=60[facility] on above:Order Comment: Specimen Type: BLOOD SPECIMENOrdering Facility: [facility] Address:[address] [place] [address]Istonr Comment: Estimated Glomerular Filtration Rate (eGFR) is calculated using the 2020 CKD-EPI creatinine equation. This equation utilizes serum creatinine, sex, and age as parameters. The creatinine assay has traceable calibration to isotope dilution- mass spectrometry. Refer to KDIGO guidelines for clinical interpretation. In patients with unstable renal function, e.g. those with acute kidney injury, the eGFR may not accurately reflect actual GFR.Performed By: #### 53583-7 ####[facility] LABCLIA [id number] [place], [place] [address]Ltagesg [Mass/Vol]155 mg/yNXlxf84-54MwpvtepdbPremier Health on above:Order Comment: Specimen Type: BLOOD SPECIMENOrdering Facility: [facility] Address:[address] [place], [place] [address]Result Comment: The [place] Diabetes Association (ADA) provides guidance for cutoff values for fasting glucose and random glucose. The ADA defines fasting as no caloric intake for at least 8 hours. Fasting plasma glucose results between 100 to 125 mg/dL indicate increased risk for diabetes (prediab etes).Fasting plasma glucose results greater than or equal to 126 mg/dL meet the criteria for diagnosis of diabetes. In the absence of unequivocal hyperglycemia, results should be confirmed by repeattesting. In a patient with classic symptoms of hyperglycemia or hyperglycemic crisis, random plasmaglucose results greater than or equal to 200 mg/dL meet the criteria for diagnosis of diabetes.Reference: Standards of Medical Care in Diabetes 2016, [place] [employer]. Diabetes Care. 2016.39(Suppl 1).Performed By: #### 58072-5 ####[facility] LABCLIA [id number] [place], [place] [address]Qyxlpokyi [Moles/Vol]4.0 mmol/LNormal3.7-5.1COhio State Health System on above:Order Comment: Specimen Type: BLOOD SPECIMENOrdering Facility: [facility] Address:[address] [place], [place] [address]Performed By: #### 87553-9 ####[facility] LABCLIA [id number] [place], [place] [address]Xkimbcb [Mass/Vol]6.8 g/dLNormal6.3-8.0[facility] on above:Order Comment: Specimen Type: BLOOD SPECIMENOrdering Facility: [facility] Address:[address] [place], [place] [address]Performed By: #### 04020- 8 ####[facility] LABCLIA [id number] [place], [place] [address]Ufzrfo [Moles/Vol]140 mmol/SHybkwb642-124TkjtavbrxPremier Health on above:Order Comment: Specimen Type: BLOOD SPECIMENOrdering Facility: [facility] Address:[address] [place], [place] [address]Performed By: #### 33782-2 ####[facility] LABCLIA [id number] [place], [place] [address]Dwmw nitrogen [Mass/Vol]18 mg/dLNormal9-24[facility] on above:Order Comment: Specimen Type: BLOOD SPECIMENOrdering Facility: [facility] Address:[address] [place], [place] [address]Performed By: #### 26040-9 ####[facility] LABCLIA [id number] [place], [place] [address]KM DIP, URINE (POC)on 70-55-2667EUKGLXCWU UA (POCT) NegativeNegativeCleSt. Charles HospitalCLARITY UA (POCT)CloudyCleSt. Charles HospitalCOLOR UA (POCT)OtherCleSt. Charles HospitalGLUCOSE UA (POCT)NegativeNegative mg/dLAvita Health System Galion HospitalHemoglobin Ql (U)LargeAbnormalNegativeAvita Health System Galion HospitalInterpretation and review of laboratory resultsAbnormalCleveland ClinicKETONE UA (POCT)Negative Negative mg/dLAvita Health System Galion HospitalLEUKOCYTES UA (POCT)SmallAbnormalNegativeAvita Health System Galion HospitalNITRITE UA (POCT)NegativeNegativeAvita Health System Galion HospitalPH UA (POCT)5.54.5 - 8.0 TaiSt. Charles HospitalProtein Ql (U)100 mg/dLAbnormalNegativeSamaritan North Health CenterPECIFIC GRAVITY UA (POCT)>=1.0301.005 - 1.030Avita Health System Galion HospitalUROBILINOGEN UA (POCT)0.2 Normal E.U./dLAvita Health System Galion HospitalLocation:[facility], [address] [place], [place] [address]ChaitanyaBrownsville, [place], [address]QAKRJCZRKBERGER HOSPITAL POINT OF CAREAvita Health System Galion HospitalCNOVon 83-58-9235BMEZFalmilKtaawxvwf Clinic ClevelandCBC W Auto Differential panel (Bld)on 60-11-8093Qcjnsjiap (Bld) [#/Vol]0.04 10*3/uLNormal<0.11CFort Hamilton Hospitalment on above:Order Comment: Specimen Type: BLOOD SPECIMENOrdering Facility: [facility] Address:[address] [place], [place] [address]Performed By: #### 98172-5 ####[facility] LABCLIA [id number] [place], [place] [address]Sjwhxkeow/100 WBC (Bld)0.4 % NormalPremier Health on above:Order Comment: Specimen Type: BLOOD SPECIMENOrdering Facility: [facility] Address:[address] [place], [place] [address]Performed By: #### 28744-9 ####[facility] LABCLIA [id number] [place] [address] Differential cell count method Nom (Bld)AutoNormalCVeterans Health Administration Comment on above:Order Comment: Specimen Type: BLOOD SPECIMENOrdering Facility: [facility] Address:[address] [place] [address] Performed By: #### 91104-8 ####[facility] LABIA [id number] [place], [place] [address]Fxyoajckodj (Bld) [#/Vol]0.18 10*3/uLNormal<0.46[facility] on above:Order Comment: Specimen Type: BLOOD SPECIMENOrdering Facility: [facility] Address:[address] [place], [place] [address]Performed By: #### 16218-6 ####[facility] LABIA [id number] [place], [place] [address]Qnaoresogzo/100 WBC (Bld)1.6 %NormalPremier Health on above:Order Comment: Specimen Type: BLOOD SPECIMENOrdering Facility: [facility] Address:[address] [place], [place] [address]Performed By: #### 72772-9 ####[facility] LABIA [id number] [place], [place] [address]Uxvjepfexbr distribution width (RBC) [Ratio]13.5 %Qkcdma76.5-15.0[facility] on above: Order Comment: Specimen Type: BLOOD SPECIMENOrdering Facility: [facility] Address:[address] [place], [place] [address]Performed By: #### 81518- 8 ####[facility] LABIA [id number] [place], [place] [address]Kcguwkpuwe (Bld) [Volume fraction]44.3 %Jwspll02.0-51.0 [facility] on above:Order Comment: Specimen Type: BLOOD SPECIMENOrdering Facility: [facility] Address:[address] [place], [place] [address]Performed By: #### 73844-6 ####[facility] LABIA [id number] [place], [place] [address]Fsigaoadvn (Bld) [Mass/Vol]14.4 g/hCBnqyjy11.0-17.0[facility] on above: Order Comment: Specimen Type: BLOOD SPECIMENOrdering Facility: [facility] Address:[address] [place], [place] [address]Performed By: #### 62991- 8 ####[facility] LABIA [id number] [place], [place] [address]Gvfdqujd granulocytes (Bld) [#/Vol]0.06 10*3/uLNormal <0.10[facility] on above:Order Comment: Specimen Type: BLOOD SPECIMENOrdering Facility: [facility] Address:[address] [place], [place] [address]Performed By: #### 23724-8 ####[facility] LABCLIA [id number] [place], [place] [address]Zmjxziqf granulocytes/100 WBC (Bld)0.5 %NormalPremier Health on above: Order Comment: Specimen Type: BLOOD SPECIMENOrdering Facility: [facility] Address:[address] [place], [place] [address]Performed By: #### 16395- 8 ####[facility] LABCLIA [id number] [place], [place] [address]Jjkskvojiie (Bld) [#/Vol]1.61 10*3/uLNormal1.00-4.00 [facility] on above:Order Comment: Specimen Type: BLOOD SPECIMENOrdering Facility: [facility] Address:[address] [place], [place] [address]Performed By: #### 60054-9 ####[facility] LABIA [id number] [place], [place] [address]Hiabstjxjqb/100 WBC (Bld)14.2 %NormalPremier Health on above:Order Comment: Specimen Type: BLOOD SPECIMENOrdering Facility: [facility] Address:[address] [place], [place] [address]Performed By: #### 15640-5 ####[facility] LABIA [id number] [place], [place] [address]BOC (RBC) [Entitic mass]28.7 agHeqnlj84.0-34.0[facility] on above:Order Comment: Specimen Type: BLOOD SPECIMENOrdering Facility: [facility] Address:[address] [place], [place] [address]Performed By: #### 19677-2 ####[facility] LABCLIA [id number] [place], [place] [address]POYF (RBC) [Mass/Vol]32.5 g/lVZsqjdn40.5-36.0[facility] on above: Order Comment: Specimen Type: BLOOD SPECIMENOrdering Facility: [facility] Address:[address] [place], [place] [address]Performed By: #### 82956- 8 ####[facility] LABCLIA [id number] [place], [place] [address]EPN (RBC) [Entitic vol]88.2 zENjpntg68.0-100.0[facility] on above:Order Comment: Specimen Type: BLOOD SPECIMENOrdering Facility: [facility] Address:[address] [place], [place] [address]Performed By: #### 27513-4 ####[facility] LABIA [id number] [place], [place] [address]Yodkxvhkg (Bld) [#/Vol]0.76 10*3/uLNormal<0.87[facility] on above:Order Comment: Specimen Type: BLOOD SPECIMENOrdering Facility: [facility] Address:[address] [place], [place] [address]Performed By: #### 87563- 8 ####[facility] LABIA [id number] [place], [place] [address]Pnginruhu/100 WBC (Bld)6.7 %NormalPremier Health on above:Order Comment: Specimen Type: BLOOD SPECIMENOrdering Facility: [facility] Address:[address] [place], [place] [address]Performed By: #### 40202-9 ####[facility] LABIA [id number] [place], [place] [address]Odefueidopm (Bld) [#/Vol]8.68 10*3/uLHigh1.45-7.50[facility] on above:Order Comment: Specimen Type: BLOOD SPECIMENOrdering Facility: [facility] Address:[address] [place], [place] [address]Performed By: #### 74833-9 ####[facility] LABCLIA [id number] [place], [place] [address]Avhrrthbaxs/100 WBC (Bld)76.6 %NormalPremier Health on above:Order Comment: Specimen Type: BLOOD SPECIMENOrdering Facility: [facility] Address:[address] [place], [place] [address]Performed By: #### 16809-4 ####[facility] LABCLIA [id number] [place], [place] [address]Qgvbvdggh RBC (Bld) [#/Vol] 10*3/uLNormal<0.01[facility] on above:Order Comment: Specimen Type: BLOOD SPECIMENOrdering Facility: [facility] Address:[address] [place], [place] [address]Performed By: #### 88416-9 ####[facility] LABCLIA [id number] [place], [place] [address]Ppwzmicfy RBC/100 WBC (Bld) [Ratio]0.0 /100 WBCNormal [facility] on above:Order Comment: Specimen Type: BLOOD SPECIMENOrdering Facility: [facility] Address:[address] [place], [place] [address]Performed By: #### 90788-0 ####[facility] LABIA [id number] [place], [place] [address]Unrnpntv mean volume (Bld) [Entitic vol]9.1 fLNormal9.0-12.7COhio State Health System on above:Order Comment: Specimen Type: BLOOD SPECIMENOrdering Facility: [facility] Address:[address] [place] [address] Performed By: #### 63929-8 ####[facility] LABCLIA [id number] [place], [place] [address]Kshlcpcez (Bld) [#/Vol]147 10*3/aTLmd839-028DbzbhlnxvPremier Health on above:Order Comment: Specimen Type: BLOOD SPECIMENOrdering Facility: [facility] Address:[address] [place], [place] [address]Performed By: #### 96757-6 ####[facility] LABCLIA [id number] [place], [place] [address]TBY (Bld) [#/Vol]5.02 10*6/uLNormal4.20-6.00[facility] on above:Order Comment: Specimen Type: BLOOD SPECIMENOrdering Facility: [facility] Address:[address] [place], [place] [address]Performed By: #### 52794-4 ####[facility] LABCLIA [id number] [place], [place] [address]SNI (Bld) [#/Vol]11.33 10*3/uLHigh3.70-11.00[facility] on above: Order Comment: Specimen Type: BLOOD SPECIMENOrdering Facility: [facility] Address:[address] [place], [place] [address]Performed By: #### 35228- 8 ####[facility] LABCLIA [id number] [place], [place] [address]VKI CBC W AUTO DIFF BLDon 66-88-1272Ksgdiuaof/100 WBC (Bld)0.4 %NOMS HealthcareF BASOPHILS # BLD AUTO0.04NINFNOLake Regional Health SystemF DIFFERENTIAL METHOD BLDAutoNOMS HealthcareF EOSINOPHIL # BLD AUTO0.18NINFNOMS Martin Memorial HospitalF LYMPHOCYTES # BLD AUTO1.61NOLake Regional Health SystemF MONOCYTES # BLD AUTO 0.76NINFNOLake Regional Health SystemF NEUTROPHILS # BLD AUTO8.68HighNOOR HealthcareCCF NRBC # BLD AUTO<0.01NINFThe Rehabilitation Institute NRBC/100 WBC BLD-RTO0/100 WBCThe Rehabilitation Institute PLATELET # BLD DNHT401BmlZHONThe Rehabilitation Institute PMV BLD AUTO9.1 fL9.0 - 12.7 fLThe Rehabilitation Institute WBC # BLD AUTO11.33HighGolden Valley Memorial Hospital Eosinophils/100 WBC (Bld)1.6 %[facility] HospitalErythrocyte distribution width (RBC) [Ratio]13.5 %11.5 - 15.0 %[facility] HospitalHematocrit (Bld) [Volume fraction]44.3 %39.0 - 51.0 %[facility] HospitalHemoglobin (Bld) [Mass/Vol]14.4 g/dL 13.0 - 17.0 g/dLNevada Regional Medical Center GRANULOCYTES # BLD AUTO0.06NIStarr Regional Medical Center GRANULOCYTES/LEUK NFR BLD AUTO0.5 %[facility] HospitalInterpretation and review of laboratory resultsAbnormSpecial Care HospitalLymphocytes/100 WBC (Bld) 14.2 %[facility] CenterH (RBC) [Entitic mass]28.7 pg26.0 - 34.0 pgMissouri Rehabilitation CenterHC (RBC) [Mass/Vol]32.5 g/dL30.5 - 36.0 g/dLMissouri Rehabilitation CenterV (RBC) [Entitic vol]88.2 fL80.0 - 100.0 fLGolden Valley Memorial HospitalMonocytes/100 WBC (Bld)6.7 % [facility] HospitalNeutrophils/100 WBC (Bld)76.6 %[facility] HospitalRBC (Bld) [#/Vol] 5.02 10*6/uL4.20 - 6.00 m/uLLAYTON HOSPITAL HealthcareSpecimen Type: BLOOD SPECIMEN [facility] Address: [address] [place] [address] Original Ordering Provider: MINDI GONZALEZ [facility] COMP METAB 1999 PNL SERPLon 42-30-5300Bozflvy [Mass/Vol]4.2 g/dL3.9 - 4.9 g/dLLAYTON HOSPITAL HealthcareALP [Catalytic activity/Vol]97 U/L38 - 113 U/LNOMS HealthcareALT [Catalytic activity/Vol]27 U/L10 - 54 U/LNOMS HealthcareAnion gap [Moles/Vol]11 mmol/L8 - 15 mmol/LNOMS HealthcareCalcium [Mass/Vol]9.9 mg/dL8.5 - 10.2 mg/dL NOMS HealthcareCCF AST SERPL-CCNC21 U/L14 - 40 U/LNOMS HealthcareCCF BILIRUB SERPL-MCNC0.3 mg/dL0.2 - 1.3 mg/dLNOMS HealthcareCCF PROT SERPL-MCNC7.2 g/dL6.3 - 8.0 g/dLNOMS HealthcareChloride [Moles/Vol]105 mmol/L98 - 107 mmol/LNOMS HealthcareCO2 [Moles/Vol]24 mmol/L22 - 30 mmol/LNOMS HealthcareCreatinine [Mass/Vol]1.03 mg/dL0.73 - 1.22 mg/dLNOMS HealthcareGFR/1.73 sq M.predicted CKD- EPI (S/P/Bld) [Vol rate/Area]76- PINFNOOR HealthcareComment on above:Estimated Glomerular Filtration Rate (eGFR) is calculated using the 2020 CKD-EPI creatinine equation. This equation utilizes serum creatinine, sex, and age as parameters. The creatinine assay has traceable calibration to isotope dilution- mass spectrometry. Refer to KDIGO guidelines for clinical interpretation. In patients with unstable renal function, e.g. those with acute kidney injury, the eGFRmay not accurately reflect actual GFR.Glucose [Mass/Vol]126 mg/mGEmso64 - 99 mg/dLNOCrittenton Behavioral HealthComment on above:The [place] Diabetes Association (ADA) provides guidance for cutoff values for fasting glucose andrandom glucose. The ADA defines fasting as no caloric intake for at least 8 hours. Fasting plasma gl ucose results between 100 to 125 mg/dL indicate increased risk for diabetes (prediabetes). Fasting plasma glucose results greater than or equal to 126 mg/dL meet the criteria for diagnosis of diabetes. In the absence of unequivocal hyperglycemia, results should be confirmed by repeat testing. In a patient with classic symptoms of hyperglycemia or hyperglycemic crisis, random plasma glucose results greater than or equal to 200 mg/dL meet the criteria for diagnosis of diabetes. Reference: Standards of Medical Care in Diabetes 2016, [place] [employer]. Diabetes Care. 2016.39(Suppl 1). Interpretation and review of laboratory resultsAbnormalNOMS HealthcarePotassium [Moles/Vol]4.3 mmol/L3.7 - 5.1 mmol/LNOMS HealthcareSodium [Moles/Vol]140 mmol/L 136 - 144 mmol/LNOMS HealthcareUrea nitrogen [Mass/Vol]20 mg/dL9 - 24 mg/dLNOMS HealthcareSpecimen Type: BLOOD SPECIMEN [facility] Address: [address] [place] [address] Original Ordering Provider: MINDI GONZALEZ HealthcareCNOVSPon 63-18-8039VKPLUWPqpgzwVisxahwdq Clinic ClevelandComprehensive metabolic 2000 panelon [id number] [Mass/Vol]4.2 g/dLNormal3.9-4.9COhio [facility] on above:Order Comment: Specimen Type: BLOOD SPECIMENOrdering Facility: [facility] Address:[address] [place], [place] [address]Performed By: #### [id number] ####[facility] LABCLIA [id number] [place], [place] [address]FWW [Catalytic activity/Vol]97 U/UVkglim12-013UltbcouejPremier Health on above:Order Comment: Specimen Type: BLOOD SPECIMENOrdering Facility: [facility] Address:[address] [place], [place] [address]Performed By: #### 10262-9 ####[facility] LABCLIA [id number] [place], [place] [address]WPT [Catalytic activity/Vol]27 U/ROfuayq58-91OebwclwbxPremier Health on above:Order Comment: Specimen Type: BLOOD SPECIMENOrdering Facility: [facility] Address:[address] [place], [place] [address]Performed By: #### 82343-7 ####[facility] LABCLIA [id number] [place], [place] [address]Gaojv gap [Moles/Vol]11 mmol/LNormal8-15[facility] on above:Order Comment: Specimen Type: BLOOD SPECIMENOrdering Facility: [facility] Address:[address] [place], [place] [address]Performed By: #### [id number]- 8 ####[facility] LABCLIA [id number] MARTINA WORLEYAVENIR BEHAVIORAL HEALTH CENTER AT SURPRISERACHELCLAM [place], [place] [address]LPZ [Catalytic activity/Vol]21 U/XVbwgwu22-32MzmopxsysPremier Health on above:Order Comment: Specimen Type: BLOOD SPECIMENOrdering Facility: [facility] Address:[address] [place], [place] [address]Performed By: #### 65948-9 ####[facility] LABCLIA [id number] [facility] [place], [place] [address]Ifljockzs [Mass/Vol]0.3 mg/dLNormal0.2-1.3COhio State Health System on above:Order Comment: Specimen Type: BLOOD SPECIMENOrdering Facility: [facility] Address:[address] [place], [place] [address]Performed By: #### 69983- 8 ####[facility] LABCLIA [id number] [facility] [place], [place] [address]Tkbnqpl [Mass/Vol]9.9 mg/dLNormal8.5-10.2COhio State Health System on above:Order Comment: Specimen Type: BLOOD SPECIMENOrdering Facility: [facility] Address:[address] [place], [place] [address]Performed By: #### 03026-1 ####[facility] LABCLIA [id number] [facility] [place], [place] [address]Rgsgixmk [Moles/Vol]105 mmol/L Gntxhm34-992YlnvlpmhjPremier Health on above:Order Comment: Specimen Type: BLOOD SPECIMENOrdering Facility: [facility] Address:[address] [place], [place] [address]Performed By: #### 07175-8 ####[facility] LABCLIA [id number] [place] [address] CO2 [Moles/Vol]24 mmol/XCwxpfz53-34AoevxdzjhPremier Health on above: Order Comment: Specimen Type: BLOOD SPECIMENOrdering Facility: [facility] Address:[address] [place], [place] [address]Performed By: #### 09535- 8 ####[facility] LABCLIA [id number] [place], [place] [address]Jkltrbywtx [Mass/Vol]1.03 mg/dLNormal0.73-1.22[facility] on above:Order Comment: Specimen Type: BLOOD SPECIMENOrdering Facility: [facility] Address:[address] [place], [place] [address]Performed By: #### 85938-1 ####[facility] LABIA [id number] [place], [place] [address]Lpkvzkmhpb and Glomerular filtration rate.predicted panel (S/P/Bld)76 mL/min/1.73m???Normal>=60 [facility] on above:Order Comment: Specimen Type: BLOOD SPECIMENOrdering Facility: [facility] Address:[address] [place], [place] [address]Result Comment: Estimated Glomerular Filtration Rate (eGFR) is calculated using the 202 CKD-EPI creatinine equation. This equation utilizes serum creatinine, sex, and age as parameters. The creatinine assay has traceable calibration to isotope dilution-mass spectrometry. Refer to KDIGO guidelines for clinical interpretation. In patients with unstable renal function, e.g. those with acute kidney injury, the eGFR may not accurately reflect actual GFR.Performed By: #### 29660-3 ####[facility] LABIA [id number] [facility] BIRDROBBINAVENIR BE[facility] AT SUR[place]ISERAC[place]CLAM [place], [place] [address]Ncyasqa [Mass/Vol]126 mg/zAEagt77-14GalixktltPremier Health on above:Order Comment: Specimen Type: BLOOD SPECIMENOrdering Facility: [facility] Address:[address] [place], [place] [address]Result Comment: The [place] Diabetes Association (ADA) provides guidance for cutoff values for fast ing glucose and random glucose. The ADA defines fasting as no caloric intake for at least 8 hours. Fasting plasma glucose results between 100 to 125 mg/dL indicate increased risk for diabetes (prediabetes).Fasting plasma glucose results greater than or equal to 126 mg/dL meet the criteria for diagnosis of diabetes. In the absence of unequivocal hyperglycemia, results should be confirmed by repeattesting. In a patient with classic symptoms of hyperglycemia or hyperglycemic crisis, random plasmaglucose results greater than or equal to 200 mg/dL meet the criteria for diagnosis of diabetes.Reference: Standards of Medical Care in Diabetes 2016, [place] [employer]. Diabetes Care. 2016.39(Suppl 1).Performed By: #### 81853-5 ####[facility] LABCLIA [id number] [place], [place] [address]Uulteebjl [Moles/Vol]4.3 mmol/LNormal3.7-5.1COhio State Health System on above: Order Comment: Specimen Type: BLOOD SPECIMENOrdering Facility: [facility] Address:[address] [place], [place] [address]Performed By: #### 16756- 8 ####[facility] LABCLIA [id number] [place], [place] [address]Qphkuna [Mass/Vol]7.2 g/dLNormal6.3-8.0[facility] on above:Order Comment: Specimen Type: BLOOD SPECIMENOrdering Facility: [facility] Address:[address] [place], [place] [address]Performed By: #### 69463-9 ####[facility] LABCLIA [id number] [place], [place] [address]Kapogy [Moles/Vol]140 mmol/L Yykzyh146-317DlorziruoPremier Health on above:Order Comment: Specimen Type: BLOOD SPECIMENOrdering Facility: [facility] Address:[address] [place], [place] [address]Performed By: #### 40974-4 ####[facility] LABCLIA [id number] [place] [address] Urea nitrogen [Mass/Vol]20 mg/dLNormal9-24[facility] on above:Order Comment: Specimen Type: BLOOD SPECIMENOrdering Facility: [facility] Address:[address] [place], [place] [address]Performed By: #### 45768-0 ####[facility] LABIA [id number] [place], [place] [address]ALJZVVIzk 50-32-6044ALNNYRQNeaaljBuelzandu Clinic ClevelandCNPNon 77-83-3251JPKETumpoaTfhjrrcuu Clinic ClevelandCNOVon 09-14-2024 CNOVNormalCVeterans Health AdministrationCNPNon 39-03-1854ZHPXHgnlbxVkheonmxt Clinic ClevelandCB W Auto Differential panel (Bld)on 87-84-8454Uxbrlvupz (Bld) [#/Vol] 0.04 10*3/uLNormal<0.11COhio State Health System on above:Order Comment: Specimen Type: BLOOD SPECIMENOrdering Facility: [facility] Address:[address] [place], [place] [address]Performed By: #### 58064-6 ####[facility] LABIA [id number] [place], [place] [address]Apzmyvgst/100 WBC (Bld)0.4 %NormalPremier Health on above:Order Comment: Specimen Type: BLOOD SPECIMENOrdering Facility: [facility] Address:[address] [place], [place] [address]Performed By: #### 94578-2 ####[facility] LABIA [id number] [place], [place] [address]Jgnhirgpshsz cell count method Nom (Bld)AutoNormalCOhio State Health System on above:Order Comment: Specimen Type: BLOOD SPECIMENOrdering Facility: [facility] Address:[address] [place], [place] [address]Performed By: #### 58701-7 ####[facility] LABCLIA [id number] [place], [place] [address]Gfmjfnbrosb (Bld) [#/Vol]0.26 10*3/uLNormal<0.46[facility] on above:Order Comment: Specimen Type: BLOOD SPECIMENOrdering Facility: [facility] Address:[address] [place], [place] [address]Performed By: #### 17664-7 ####[facility] LABCLIA [id number] [place], [place] [address]Jslhcfslwpm/100 WBC (Bld)2.4 %NormalPremier Health on above:Order Comment: Specimen Type: BLOOD SPECIMENOrdering Facility: [facility] Address:[address] [place], [place] [address]Performed By: #### 35911-2 ####[facility] LABCLIA [id number] [place], [place] [address]Dnutxsqstrf distribution width (RBC) [Ratio]13.1 %Normal 11.5-15.0[facility] on above:Order Comment: Specimen Type: BLOOD SPECIMENOrdering Facility: [facility] Address:[address] [place], [place] [address]Performed By: #### 03356-3 ####[facility] LABIA [id number] [place] [address] Hematocrit (Bld) [Volume fraction]43.7 %Rzwzsx32.0-51.0[facility] on above:Order Comment: Specimen Type: BLOOD SPECIMENOrdering Facility: [facility] Address:[address] [place], [place] [address]Performed By: #### 86014-6 ####[facility] LABIA [id number] [place], [place] [address]Uaozrmxmqd (Bld) [Mass/Vol]14.7 g/gQWbthyv72.0-17.0[facility] on above:Order Comment: Specimen Type: BLOOD SPECIMENOrdering Facility: [facility] Address:[address] [place], [place] [address]Performed By: #### 94630-0 ####[facility] LABCLIA [id number] [place], [place] [address]Jjxlnlju granulocytes (Bld) [#/Vol]0.06 10*3/uLNormal <0.10[facility] on above:Order Comment: Specimen Type: BLOOD SPECIMENOrdering Facility: [facility] Address:[address] [place], [place] [address]Performed By: #### 49481-7 ####[facility] LABCLIA [id number] [place], [place] [address]Uqmkbwdf granulocytes/100 WBC (Bld)0.6 %NormalPremier Health on above: Order Comment: Specimen Type: BLOOD SPECIMENOrdering Facility: [facility] Address:[address] [place], [place] [address]Performed By: #### 76728- 8 ####[facility] LABCLIA [id number] [place], [place] [address]Tlmyqdlfvtx (Bld) [#/Vol]2.05 10*3/uLNormal1.00-4.00 [facility] on above:Order Comment: Specimen Type: BLOOD SPECIMENOrdering Facility: [facility] Address:[address] [place], [place] [address]Performed By: #### 33831-1 ####[facility] LABCLIA [id number] [place], [place] [address]Gwgiyzifock/100 WBC (Bld)18.9 %NormalPremier Health on above:Order Comment: Specimen Type: BLOOD SPECIMENOrdering Facility: [facility] Address:[address] [place], [place] [address]Performed By: #### 35114-1 ####[facility] LABCLIA [id number] [place], [place] [address]VAU (RBC) [Entitic mass]29.1 sbUblkjh77.0-34.0[facility] on above:Order Comment: Specimen Type: BLOOD SPECIMENOrdering Facility: [facility] Address:[address] [place], [place] [address]Performed By: #### 63606-4 ####[facility] LABCLIA [id number] [place], [place] [address]JPGW (RBC) [Mass/Vol]33.6 g/iRNvvurs69.5-36.0[facility] on above: Order Comment: Specimen Type: BLOOD SPECIMENOrdering Facility: [facility] Address:[address] [place], [place] [address]Performed By: #### 06175- 8 ####[facility] LABCLIA [id number] [place], [place] [address]CSU (RBC) [Entitic vol]86.4 vKOnbiuy97.0-100.0[facility] on above:Order Comment: Specimen Type: BLOOD SPECIMENOrdering Facility: [facility] Address:[address] [place], [place] [address]Performed By: #### 96743-6 ####[facility] LABCLIA [id number] [place], [place] [address]Kjcuwodxb (Bld) [#/Vol]0.82 10*3/uLNormal<0.87[facility] on above:Order Comment: Specimen Type: BLOOD SPECIMENOrdering Facility: [facility] Address:[address] [place], [place] [address]Performed By: #### 71744- 8 ####[facility] LABCLIA [id number] [place], [place] [address]Yxpazbyuj/100 WBC (Bld)7.6 %NormalPremier Health on above:Order Comment: Specimen Type: BLOOD SPECIMENOrdering Facility: [facility] Address:[address] [place], [place] [address]Performed By: #### 43604-1 ####[facility] LABCLIA [id number] [place], [place] [address]Zifrquijdgt (Bld) [#/Vol]7.60 10*3/uLHigh1.45-7.50[facility] on above:Order Comment: Specimen Type: BLOOD SPECIMENOrdering Facility: [facility] Address:[address] [place], [place] [address]Performed By: #### 61839-5 ####[facility] LABCLIA [id number] [place], [place] [address]Yurrhqxvbgl/100 WBC (Bld)70.1 %NormalPremier Health on above:Order Comment: Specimen Type: BLOOD SPECIMENOrdering Facility: [facility] Address:[address] [place], [place] [address]Performed By: #### 59737-2 ####[facility] LABCLIA [id number] [place], [place] [address]Rablbjaws RBC (Bld) [#/Vol] 10*3/uLNormal<0.01[facility] on above:Order Comment: Specimen Type: BLOOD SPECIMENOrdering Facility: [facility] Address:[address] [place], [place] [address]Performed By: #### 66358-6 ####[facility] LABCLIA [id number] [place], [place] [address]Ftfsajnyv RBC/100 WBC (Bld) [Ratio]0.0 /100 WBCNormal [facility] on above:Order Comment: Specimen Type: BLOOD SPECIMENOrdering Facility: [facility] Address:[address] [place], [place] [address]Performed By: #### 00905-5 ####[facility] LABCLIA [id number] [place], [place] [address]Scnlauju mean volume (Bld) [Entitic vol]9.1 fLNormal9.0-12.7COhio State Health System on above:Order Comment: Specimen Type: BLOOD SPECIMENOrdering Facility: [facility] Address:[address] [place] [address] Performed By: #### 72963-6 ####[facility] LABCLIA [id number] [place], [place] [address]Wzuufodbv (Bld) [#/Vol]204 10*3/eOWkbcxx906-491LxptajxwdPremier Health on above:Order Comment: Specimen Type: BLOOD SPECIMENOrdering Facility: [facility] Address:[address] [place], [place] [address]Performed By: #### 65026-2 ####[facility] LABIA [id number] [place], [place] [address]XKW (Bld) [#/Vol]5.06 10*6/uLNormal4.20-6.00[facility] on above:Order Comment: Specimen Type: BLOOD SPECIMENOrdering Facility: [facility] Address:[address] [place], [place] [address]Performed By: #### 30504-2 ####[facility] LABIA [id number] [place], [place] [address]ITH (Bld) [#/Vol]10.83 10*3/uLNormal3.70-11.00[facility] on above: Order Comment: Specimen Type: BLOOD SPECIMENOrdering Facility: [facility] Address:[address] [place], [place] [address]Performed By: #### 66101- 8 ####[facility] LABIA [id number] [place], [place] [address]UDF CBC W AUTO DIFF BLDon 71-74-0333Gvujlazgm/100 WBC (Bld)0.4 %[facility] BASOPHILS # BLD AUTO0.04NILincoln County Health System DIFFERENTIAL METHOD BLDAutoNOMSaint Louis University [facility] Science Center EOSINOPHIL # BLD AUTO0.26NILincoln [facility] System LYMPHOCYTES # BLD AUTO2.05[facility] MONOCYTES # BLD AUTO 0.82NILincoln County Health System NEUTROPHILS # BLD AUTO7.6HighThe Rehabilitation Institute NRBC # BLD AUTO<0.01NILincoln County Health System NRBC/100 WBC BLD-RTO0/100 WBCThe Rehabilitation Institute PLATELET # BLD HBLU260KEGRThe Rehabilitation Institute PMV BLD AUTO9.1 fL9.0 - 12.7 fLThe Rehabilitation Institute WBC # BLD AUTO10.83[facility] HospitalEosinophils/100 WBC (Bld)2.4 %[facility] HospitalErythrocyte distribution width (RBC) [Ratio]13.1 %11.5 - 15.0 %[facility] HospitalHematocrit (Bld) [Volume fraction]43.7 %39.0 - 51.0 %[facility] HospitalHemoglobin (Bld) [Mass/Vol]14.7 g/dL13.0 - 17.0 g/dLNevada Regional Medical Center GRANULOCYTES # BLD AUTO0.06NIStarr Regional Medical Center GRANULOCYTES/LEUK NFR BLD AUTO0.6 %[facility] HealthcareInterpretation and review of laboratory resultsAbnormal [facility] HospitalLymphocytes/100 WBC (Bld)18.9 %[facility] CenterH (RBC) [Entitic mass]29.1 pg26.0 - 34.0 pgMissouri Rehabilitation CenterHC (RBC) [Mass/Vol]33.6 g/dL30.5 - 36.0 g/dLMissouri Rehabilitation CenterV (RBC) [Entitic vol]86.4 fL80.0 - 100.0 fLGolden Valley Memorial HospitalMonocytes/100 WBC (Bld)7.6 %[facility] HospitalNeutrophils/100 WBC (Bld) 70.1 %[facility] HospitalRBC (Bld) [#/Vol]5.06 10*6/uL4.20 - 6.00 m/uLLAYTON HOSPITAL HealthcareSpecimen Type: BLOOD SPECIMEN [facility] Address: [address] [place] [address] Original Ordering Provider: MINDI COTOTenet St. LouisCCF COMP METAB 2000 PNL SERPLon 40-01-5880Pbkumaq [Mass/Vol]4.3 g/dL3.9 - 4.9 g/dLNOMS HealthcareALP [Catalytic activity/Vol]94 U/L38 - 113 U/LNOMS HealthcareALT [Catalytic activity/Vol]32 U/L10 - 54 U/LNOMS HealthcareAnion gap [Moles/Vol]10 mmol/L8 - 15 mmol/LNOMS HealthcareCalcium [Mass/Vol]10.2 mg/dL8.5 - 10.2 mg/dL NOMS HealthcareCCF AST SERPL-CCNC22 U/L14 - 40 U/LNOMS [facility] HospitalCCF BILIRUB SERPL-MCNC0.2 mg/dL0.2 - 1.3 mg/dLNOOR HealthcareCCF PROT SERPL-MCNC7.3 g/dL6.3 - 8.0 g/dLNOMS HealthcareChloride [Moles/Vol]105 mmol/L98 - 107 mmol/LNOMS HealthcareCO2 [Moles/Vol]27 mmol/L22 - 30 mmol/LNOMS HealthcareCreatinine [Mass/Vol]1.1 mg/dL0.73 - 1.22 mg/dLNOOR HealthcareGFR/1.73 sq M.predicted CKD- EPI (S/P/Bld) [Vol rate/Area]70- PINFNOOR HealthcareComment on above:Estimated Glomerular Filtration Rate (eGFR) is calculated using the 2020 CKD-EPI creatinine equation. This equation utilizes serum creatinine, sex, and age as parameters. The creatinine assay has traceable calibration to isotope dilution- mass spectrometry. Refer to KDIGO guidelines for clinical interpretation. In patients with unstable renal function, e.g. those with acute kidney injury, the eGFRmay not accurately reflect actual GFR.Glucose [Mass/Vol]128 mg/oUWcmg22 - 99 mg/dLNOOR HealthcareComment on above:The [place] Diabetes Association (ADA) provides guidance for cutoff values for fasting glucose andrandom glucose. The ADA defines fasting as no caloric intake for at least 8 hours. Fasting plasma gl ucose results between 100 to 125 mg/dL indicate increased risk for diabetes (prediabetes). Fasting plasma glucose results greater than or equal to 126 mg/dL meet the criteria for diagnosis of diabetes. In the absence of unequivocal hyperglycemia, results should be confirmed by repeat testing. In a patient with classic symptoms of hyperglycemia or hyperglycemic crisis, random plasma glucose results greater than or equal to 200 mg/dL meet the criteria for diagnosis of diabetes. Reference: Standards of Medical Care in Diabetes 2016, [place] [employer]. Diabetes Care. 2016.39(Suppl 1). Interpretation and review of laboratory resultsAbnormalNOMS HealthcarePotassium [Moles/Vol]3.8 mmol/L3.7 - 5.1 mmol/LNOMS HealthcareSodium [Moles/Vol]142 mmol/L 136 - 144 mmol/LNOMS HealthcareUrea nitrogen [Mass/Vol]26 mg/dLHigh9 - 24 mg/dL NOMS HealthcareSpecimen Type: BLOOD SPECIMEN [facility] Address: [address] [place] [address] Original Ordering Provider: MINDI GONZALEZ HealthcareCNOVSPon 45-47-2453PTEAWVOhzfcjKqdukrfqj Clinic ClevelandComprehensive metabolic 2000 panelon 42-91-0842Uqckzhc [Mass/Vol]4.3 g/dLNormal3.9-4.9COhio State Health System on above:Order Comment: Specimen Type: BLOOD SPECIMENOrdering Facility: [facility] Address:[address] [place], [place] [address]Performed By: #### 96523-2 ####[facility] LABCLIA [id number] [place], [place] [address]PTF [Catalytic activity/Vol]94 U/RJminuo42-726FdwblzdlhPremier Health on above:Order Comment: Specimen Type: BLOOD SPECIMENOrdering Facility: [facility] Address:[address] [place], [place] [address]Performed By: #### 39459-4 ####[facility] LABCLIA [id number] [place], [place] [address]HPP [Catalytic activity/Vol]32 U/VCcugsm56-66AypndczxrPremier Health on above:Order Comment: Specimen Type: BLOOD SPECIMENOrdering Facility: [facility] Address:[address] [place], [place] [address]Performed By: #### 51706-5 ####[facility] LABCLIA [id number] [place], [place] [address]Nchii gap [Moles/Vol]10 mmol/LNormal8-15[facility] on above:Order Comment: Specimen Type: BLOOD SPECIMENOrdering Facility: [facility] Address:[address] [place], [place] [address]Performed By: #### 16638- 8 ####[facility] LABCLIA [id number] [place], [place] [address]SIB [Catalytic activity/Vol]22 U/QTkkoeg09-45TszgsxfsvPremier Health on above:Order Comment: Specimen Type: BLOOD SPECIMENOrdering Facility: [facility] Address:[address] [place], [place] [address]Performed By: #### 08956-3 ####[facility] LABCLIA [id number] [place], [place] [address]Hggnxklnu [Mass/Vol]0.2 mg/dLNormal0.2-1.3COhio State Health System on above:Order Comment: Specimen Type: BLOOD SPECIMENOrdering Facility: [facility] Address:[address] [place], [place] [address]Performed By: #### 21796- 8 ####[facility] LABCLIA [id number] [place], [place] [address]Wbieahd [Mass/Vol]10.2 mg/dLNormal8.5-10.2COhio State Health System on above:Order Comment: Specimen Type: BLOOD SPECIMENOrdering Facility: [facility] Address:[address] [place], [place] [address]Performed By: #### 16331-1 ####[facility] LABCLIA [id number] [place], [place] [address]Sakygsck [Moles/Vol]105 mmol/XDzaknm69-123TywpwzyjaPremier Health on above: Order Comment: Specimen Type: BLOOD SPECIMENOrdering Facility: [facility] Address:[address] [place], [place] [address]Performed By: #### 35014- 8 ####[facility] LABCLIA [id number] [facility] [place], [place] [address]XX6 [Moles/Vol]27 mmol/YStwclp53-05HykxgqwqqPremier Health on above:Order Comment: Specimen Type: BLOOD SPECIMENOrdering Facility: [facility] Address:[address] [place], [place] [address]Performed By: #### 05220-3 ####[facility] LABCLIA [id number] [place], [place] [address]Emiicujoig [Mass/Vol]1.10 mg/dL Normal0.73-1.22[facility] on above:Order Comment: Specimen Type: BLOOD SPECIMENOrdering Facility: [facility] Address:[address] [place], [place] [address]Performed By: #### 75337-3 ####[facility] LABCLIA [id number] [facility] [place], [place] [address]Eskysypfxk and Glomerular filtration rate.predicted panel (S/P/Bld)70 mL/min/1.73m???Normal>=60[facility] on above:Order Comment: Specimen Type: BLOOD SPECIMENOrdering Facility: [facility] Address:[address] [place], [place] [address]Result Comment: Estimated Glomerular Filtration Rate (eGFR) is calculated using the 2020 CKD-EPI creatinine equation. This equation utilizes serum creatinine, sex, and age as parameters. The creatinine assay has traceable calibration to isotope dilution- mass spectrometry. Refer to KDIGO guidelines for clinical interpretation. In patients with unstable renal function, e.g. those with acute kidney injury, the eGFR may not accurately reflect actual GFR.Performed By: #### 52230-0 ####[facility] LABCLIA [id number] [place], [place] [address]Smhdkpm [Mass/Vol]128 mg/uVFjci79-27SgzclqgbqPremier Health on above:Order Comment: Specimen Type: BLOOD SPECIMENOrdering Facility: [facility] Address:[address] [place], [place] [address]Result Comment: The [place] Diabetes Association (ADA) provides guidance for cutoff values for fasting glucose and random glucose. The ADA defines fasting as no caloric intake for at least 8 hours. Fasting plasma glucose results between 100 to 125 mg/dL indicate increased risk for diabetes (prediab etes).Fasting plasma glucose results greater than or equal to 126 mg/dL meet the criteria for diagnosis of diabetes. In the absence of unequivocal hyperglycemia, results should be confirmed by repeattesting. In a patient with classic symptoms of hyperglycemia or hyperglycemic crisis, random plasmaglucose results greater than or equal to 200 mg/dL meet the criteria for diagnosis of diabetes.Reference: Standards of Medical Care in Diabetes 2016, [place] [employer]. Diabetes Care. 2016.39(Suppl 1).Performed By: #### 86779-4 ####[facility] LABCLIA [id number] [place], [place] [address]Evacoddcu [Moles/Vol]3.8 mmol/LNormal3.7-5.1COhio State Health System on above:Order Comment: Specimen Type: BLOOD SPECIMENOrdering Facility: [facility] Address:[address] [place] [address]Vuiypuxjn By: #### 26578-8 ####[facility] LABCLIA [id number] [place], [place] [address]Ssolfhg [Mass/Vol]7.3 g/dLNormal6.3-8.0[facility] on above:Order Comment: Specimen Type: BLOOD SPECIMENOrdering Facility: [facility] Address:[address] [place], [place] [address]Performed By: #### 44134- 8 ####[facility] LABCLIA [id number] [place], [place] [address]Phfiic [Moles/Vol]142 mmol/ZLlvrfu304-511UyhdpyxxyPremier Health on above:Order Comment: Specimen Type: BLOOD SPECIMENOrdering Facility: [facility] Address:[address] [place], [place] [address]Performed By: #### 11018-0 ####[facility] LABCLIA [id number] [place], [place] [address]Vvov nitrogen [Mass/Vol]26 mg/dLHigh9-24[facility] on above:Order Comment: Specimen Type: BLOOD SPECIMENOrdering Facility: [facility] Address:[address] [place], [place] [address]Performed By: #### [id number] ####[facility] LABCLIA [id number] [place] [address] PT panel Coag (PPP)on [id number] Coag (PPP) [Relative time]2.3 {INR}High 0.9-1.3COhio State Health System on above:Order Comment: Specimen Type: BLOOD SPECIMENOrdering Facility: [facility] Address:[address] [place], [place] [id number] Comment: Vitamin K Antagonist (VKA) Therapeutic Range: INR 2 to 3 (Target INR of 2.5)Note: For patients treated with VKA drugs, such as warfarin, the [employer] 2012 Guideline recommends a therapeutic INR range of 2 to 3 (target INR of 2.5). This recommendation includes high-risk patients with antiphospholipid syndrome with previous arterial or venous thromboembolism, current-generation mechanical or bioprosthetic aortic heart valve replacement.Note: Patients with mechanical aortic valve replacement and additional risk factors for thromboembolic events (atrialfibrillation, previous thromboembolism, LV dysfunction, hypercoagulable conditions) or an older generation mechanical AVR (i.e., ball in-Cage) or any mechanical MVR should have a INR therapeutic range of 2.5 to 3.5 (target INR of 3).Ale GH, et al. Chest 2012, 141:7S-47SNishimura RA, et al. [facility] 2017, 70: 252-289Performed By: #### 16518-5 ####[facility] LABIA [id number] [place] [address] [place] PT Coag (PPP) [Time]23.4 sHigh9.7-13.0[facility] Medical CenterComhenry ford wy[facility] on above:Order Comment: Specimen Type: BLOOD SPECIMENOrdering Facility: [facility] Address:[address] [place], [place] [address]Performed By: #### 30053-1 ####[facility]PITALIA [id number] [place] [address] [place] STATES OF AMERICACNPNon 66-71-6674TDVP NormalUniversity Hospitals St. John Medical CenterCNOVon 81-80-8673VSSHQjpljfGkefldbtl Clinic ClevelandCNPNon 30-64-5762DNIBZuyrzdOfjaljqbo Clinic ClevelandCB W Auto Differential panel (Bld)on 79-09-5206Nmbsvnrix (Bld) [#/Vol]0.09 10*3/uLNINF [facility] HospitalDifferential cell count method Nom (Bld)AutoClevelSelect Medical Specialty Hospital - [facility] South Eosinophils (Bld) [#/Vol]0.44 10*3/uLNINFAvita Health System Galion HospitalImmature granulocytes (Bld) [#/Vol]0.05 10*3/uLNIPremier Health Miami Valley HospitalImmature granulocytes/100 WBC (Bld) 0.5 %[facility] HospitalLymphocytes (Bld) [#/Vol]2.33 10*3/uLAvita Health System [facility] Hospital Monocytes (Bld) [#/Vol]0.7 10*3/uLNIPremier Health Miami Valley HospitalNeutrophils (Bld) [#/Vol] 6.58 10*3/[facility] Medical CenterNucleated RBC (Bld) [#/Vol]NINFCMemorial Hospital Nucleated RBC/100 WBC (Bld) [Ratio]0 %/100 WBCAvita Health System Galion HospitalPlatelet mean volume (Bld) [Entitic vol]9.3 fL9.0 - 12.7 fLClevelatrium health wake forest [facility] ClinicPlatelets (Bld) [#/Vol]202 10*3/uLAvita Health System Galion HospitalWBC (Bld) [#/Vol]10.19 10*3/uLAvita Health System [facility] Hospital Basophils (Bld) [#/Vol]0.09 10*3/uLNormal<0.11COhio State Health System on above:Order Comment: Specimen Type: BLOOD SPECIMENOrdering Facility: [facility] Address:[address] [place] [address] Performed By: #### 68997-0 ####[facility] LABCLIA [id number] [place], [place] [address]Nbhtwixqg/100 WBC (Bld)0.9 % [facility] on above:Order Comment: Specimen Type: BLOOD SPECIMENOrdering Facility: [facility] Address:[address] [place], [place] [address]Performed By: #### 38068-1 ####[facility] LABCLIA [id number] [place] [address] Differential cell count method Nom (Bld)AutoNormalCVeterans Health Administration Comment on above:Order Comment: Specimen Type: BLOOD SPECIMENOrdering Facility: [facility] Address:[address] [place] [address] Performed By: #### 14356-5 ####[facility] LABCLIA [id number] [place], [place] [address]Qdqsgdgctzb (Bld) [#/Vol]0.44 10*3/uLNormal<0.46[facility] on above:Order Comment: Specimen Type: BLOOD SPECIMENOrdering Facility: [facility] Address:[address] [place], [place] [address]Performed By: #### 13402-6 ####[facility] LABIA [id number] [place], [place] [address]Akbmqffspea/100 WBC (Bld)4.3 %[facility] on above:Order Comment: Specimen Type: BLOOD SPECIMENOrdering Facility: [facility] Address:[address] [place], [place] [address]Performed By: #### 85907-3 ####[facility] LABCLIA [id number] [place], [place] [address]Vpxzrajhoam distribution width (RBC) [Ratio]13.3 %Egxosw94.5-15.0[facility] on above: Order Comment: Specimen Type: BLOOD SPECIMENOrdering Facility: [facility] Address:[address] [place], [place] [address]Performed By: #### 90756- 8 ####[facility] LABCLIA [id number] [place], [place] [address]Shamhkqiwe (Bld) [Volume fraction]45.3 %Rhvfsu02.0-51.0 [facility] on above:Order Comment: Specimen Type: BLOOD SPECIMENOrdering Facility: [facility] Address:[address] [place], [place] [address]Performed By: #### 15629-3 ####[facility] LABIA [id number] [place], [place] [address]Pqwjvccpnc (Bld) [Mass/Vol]15.2 g/eHPmptiv70.0-17.0[facility] on above: Order Comment: Specimen Type: BLOOD SPECIMENOrdering Facility: [facility] Address:[address] [place], [place] [address]Performed By: #### 63066- 8 ####[facility] LABIA [id number] [place], [place] [address]Yaclbkce granulocytes (Bld) [#/Vol]0.05 10*3/uLNormal <0.10[facility] on above:Order Comment: Specimen Type: BLOOD SPECIMENOrdering Facility: [facility] Address:[address] [place], [place] [address]Performed By: #### 04133-3 ####[facility] LABIA [id number] [place], [place] [address]Colqszub granulocytes/100 WBC (Bld)0.5 %NormalPremier Health on above: Order Comment: Specimen Type: BLOOD SPECIMENOrdering Facility: [facility] Address:[address] [place], [place] [address]Performed By: #### 53265- 8 ####[facility] LABCLIA [id number] [place], [place] [address]Ngxoryrcukk (Bld) [#/Vol]2.33 10*3/uLNormal1.00-4.00 [facility] on above:Order Comment: Specimen Type: BLOOD SPECIMENOrdering Facility: [facility] Address:[address] [place], [place] [address]Performed By: #### 71559-5 ####[facility] LABCLIA [id number] [place], [place] [address]Putmhxnwdlz/100 WBC (Bld)22.9 %NormalPremier Health on above:Order Comment: Specimen Type: BLOOD SPECIMENOrdering Facility: [facility] Address:[address] [place], [place] [address]Performed By: #### 46038-8 ####[facility] LABCLIA [id number] [place], [place] [address]PRI (RBC) [Entitic mass]29.0 tlXeketg14.0-34.0[facility] on above:Order Comment: Specimen Type: BLOOD SPECIMENOrdering Facility: [facility] Address:[address] [place], [place] [address]Performed By: #### 35199-9 ####[facility] LABCLIA [id number] [place], [place] [address]ZGVB (RBC) [Mass/Vol]33.6 g/aELyuwob58.5-36.0[facility] on above: Order Comment: Specimen Type: BLOOD SPECIMENOrdering Facility: [facility] Address:[address] [place], [place] [address]Performed By: #### 04092- 8 ####[facility] LABCLIA [id number] [place], [place] [address]NCG (RBC) [Entitic vol]86.5 yNWzvmem49.0-100.0[facility] on above:Order Comment: Specimen Type: BLOOD SPECIMENOrdering Facility: [facility] Address:[address] [place], [place] [address]Performed By: #### 42653-0 ####[facility] LABCLIA [id number] [place], [place] [address]Dsobggznu (Bld) [#/Vol]0.70 10*3/uLNormal<0.87[facility] on above:Order Comment: Specimen Type: BLOOD SPECIMENOrdering Facility: [facility] Address:[address] [place], [place] [address]Performed By: #### 05998- 8 ####[facility] LABCLIA [id number] [place], [place] [address]Bzttuyqqh/100 WBC (Bld)6.9 %NormalPremier Health on above:Order Comment: Specimen Type: BLOOD SPECIMENOrdering Facility: [facility] Address:[address] [place], [place] [address]Performed By: #### 11913-6 ####[facility] LABCLIA [id number] [place], [place] [address]Hbclrqisfed (Bld) [#/Vol]6.58 10*3/uLNormal1.45-7.50[facility] on above:Order Comment: Specimen Type: BLOOD SPECIMENOrdering Facility: [facility] Address:[address] [place], [place] [address]Performed By: #### 14961-0 ####[facility] LABCLIA [id number] [place], [place] [address]Wvmerxtinnw/100 WBC (Bld)64.5 %NormalPremier Health on above:Order Comment: Specimen Type: BLOOD SPECIMENOrdering Facility: [facility] Address:[address] [place], [place] [address]Performed By: #### 30963-7 ####[facility] LABCLIA [id number] [place], [place] [address]Uobxyfrjl RBC (Bld) [#/Vol] 10*3/uLNormal<0.01[facility] on above:Order Comment: Specimen Type: BLOOD SPECIMENOrdering Facility: [facility] Address:[address] [place], [place] [address]Performed By: #### 13486-3 ####[facility] LABCLIA [id number] [place], [place] [address]Unnaczeef RBC/100 WBC (Bld) [Ratio]0.0 /100 WBCNormal [facility] on above:Order Comment: Specimen Type: BLOOD SPECIMENOrdering Facility: [facility] Address:[address] [place], [place] [address]Performed By: #### 13397-5 ####[facility] LABCLIA [id number] [place], [place] [address]Izhjzwgn mean volume (Bld) [Entitic vol]9.3 fLNormal9.0-12.7COhio State Health System on above:Order Comment: Specimen Type: BLOOD SPECIMENOrdering Facility: [facility] Address:[address] [place] [address] Performed By: #### 81285-7 ####[facility] LABCLIA [id number] [place], [place] [address]Cqkxmdeqx (Bld) [#/Vol]202 10*3/vJBztpxf427-885RjufzoozyPremier Health on above:Order Comment: Specimen Type: BLOOD SPECIMENOrdering Facility: [facility] Address:[address] [place], [place] [address]Performed By: #### 07917-0 ####[facility] LABCLIA [id number] [place], [place] [address]LHQ (Bld) [#/Vol]5.24 10*6/uLNormal4.20-6.00[facility] on above:Order Comment: Specimen Type: BLOOD SPECIMENOrdering Facility: [facility] Address:[address] [place] [address]Oqekdvyvr By: #### 46480-2 ####[facility] LABCLIA [id number] [place], [place] [address]NTX (Bld) [#/Vol]10 10*3/uLNormal3.70-11.00[facility] on above: Order Comment: Specimen Type: BLOOD SPECIMENOrdering Facility: [facility] Address:[address] [place] [address]Xfhsvihgy By: #### 64865- 8 ####[facility] LABCLIA [id number] [place], [place] [address]TKX CBC W AUTO DIFF BLDon 25-91-0434HQT BASOPHILS # BLD AUTO0.09NILincoln County Health System DIFFERENTIAL METHOD BLDAutoNOMSaint Louis University Health Science Center EOSINOPHIL # BLD AUTO0.44NILincoln [facility] System LYMPHOCYTES # BLD AUTO2.33NOM[facility] MONOCYTES # BLD AUTO0.7NILincoln [facility] Health System NEUTROPHILS # BLD AUTO6.58NOM[facility] NRBC # BLD AUTO<0.01NILincoln County Health System NRBC/100 WBC BLD-RTO0/[address]BCNOM[address] [facility] PLATELET # BLD FLHR076WBZBMosaic Life Care at St. Joseph PMV BLD AUTO9.3 fL9.0 - 12.[address] [facility] WBC # BLD AUTO10.19NOOR HealthcareIM GRANULOCYTES # BLD AUTO0.05NIStarr Regional Medical Center GRANULOCYTES/LEUK NFR BLD AUTO0.5 %[facility]OMS HealthcareSpecimen Type: BLOOD SPECIMEN [facility] Address: [address] [place] [id number] Original Ordering Provider: MINDI GUTIERREZon 46-55-1709SEEAUlezwp [facility] CenterCNOVSPon 90-74-9231GXJLHIYysczrOixmleoao [facility] ClevelandCNPNon 15-53-6571VUVSPednavJlkneyape Clinic ClevelandComprehensive metabolic 2000 panelOrdered By: Piter Berry on 53-66-9881Rqmdedt [Mass/Vol]4.4 g/dL3.9 - 4.9 g/dLLake Creek ClinicALP [Catalytic activity/Vol]97 U/L38 - 113 U/L [facility] ClinicALT [Catalytic activity/Vol]23 U/L10 - 54 U/LCleveland Clinic Anion gap [Moles/Vol]11 mmol/L8 - 15 mmol/LCleveland ClinicAST [Catalytic activity/Vol]21 U/L14 - 40 U/LCleveland ClinicBilirubin [Mass/Vol]0.3 mg/dL0.2 - 1.3 mg/dLLake Creek ClinicCalcium [Mass/Vol]9.9 mg/dL8.5 - 10.2 mg/dLLake Creek ClinicChloride [Moles/Vol]105 mmol/L98 - 107 mmol/LCleveland ClinicCO2 [Moles/Vol]23 mmol/L22 - 30 mmol/LCleveland ClinicCreatinine [Mass/Vol]1.07 mg/dL0.73 - 1.22 mg/dLLake Creek ClinicGFR/1.73 sq M.predicted among non-blacks MDRD (S/P/Bld) [Vol rate/Area]73 mL/min/{1.73_m2}- PINFCleveland ClinicComment on above:Estimated Glomerular Filtration Rate (eGFR) is calculated using the 2020 CKD-EPI creatinine equation. This equation utilizes serum creatinine, sex, and age as parameters. The creatinine assay has traceable calibration to isotope dilution-mass spectrometry. Refer to KDIGO guidelines for clinical inte rpretation. In patients with unstable renal function, e.g. those with acute kidney injury, the eGFRmay not accurately reflect actual GFR.Glucose [Mass/Vol] 138 mg/dZEgdh07 - 99 mg/dLAvita Health System Galion HospitalComment on above:The [place] Diabetes Association (ADA) provides guidance for cutoff values for fasting glucose and random glucose. The ADA defines fasting as no caloric intake for at least 8 hours. Fasting plasma glucose results between 100 to 125 mg/dL indicate increased risk for diabetes (prediabetes). Fasting plasma glucose results greater than or equal to 126 mg/dL meet the criteria for diagnosis of diabetes. In the absence of unequivocal hyperglycemia, results should be confirmed by repeat testing. In a patient with classic symptoms of hyperglycemia or hyperglycemic crisis, random plasma glucose results greater than or equal to 200 mg/dL meet the criteria for diagnosis of diabetes. Reference: Standards of Medical Care in Diabetes 2016, [place] Diabetes Association. Diabetes Care. 2016.39(Suppl 1). Interpretation and review of laboratory resultsAbnormalCleveland ClinicPotassium [Moles/Vol]3.9 mmol/L3.7 - 5.1 mmol/LCj.w. ruby memorial hospital ClinicProtein [Mass/Vol]7.2 g/dL 6.3 - 8.0 g/dLSamaritan North Health Centerodium [Moles/Vol]139 mmol/L136 - 144 mmol/L [facility] HospitalUrea nitrogen [Mass/Vol]22 mg/dL9 - 24 mg/dLSelect Medical Specialty Hospital - [facility], IncComprehensive metabolic 2000 panelon 05-11-8483Megxhmx [Mass/Vol]4.4 g/dLNormal3.9-4.9COhio State Health System on above:Order Comment: Specimen Type: BLOOD SPECIMENOrdering Facility: [facility] Address:[address] [place] [address]Emyznepgn By: #### 27425- 8, ####[facility] LABCLIA [id number] [place], [place] [address]TFO [Catalytic activity/Vol]97 U/FChinyq37-610 [facility] on above:Order Comment: Specimen Type: BLOOD SPECIMENOrdering Facility: [facility] Address:[address] [place] [address]Foraobneh By: #### 83677-6, ####[facility] LABCLIA [id number] [place], [place] [address]IOP [Catalytic activity/Vol]23 U/NXgztxh52-03CvspybpagPremier Health on above:Order Comment: Specimen Type: BLOOD SPECIMENOrdering Facility: [facility] Address:[address] [place], [place] [address]Performed By: #### 31869-6, ####[facility]ENM[facility] LABCLIA [id number] [place], [place] [address]Dbxex gap [Moles/Vol]11 mmol/LNormal8-15 [facility] on above:Order Comment: Specimen Type: BLOOD SPECIMENOrdering Facility: [facility] Address:[address] [place], [place] [address]Performed By: #### 29452-9, ####[facility] LABCLIA [id number] [place], [place] [address]XVR [Catalytic activity/Vol]21 U/SQcxmhq42-31PdjfmkpqjPremier Health on above:Order Comment: Specimen Type: BLOOD SPECIMENOrdering Facility: [facility] Address:[address] [place], [place] [address]Performed By: #### 45188-2, ####[facility] LABCLIA [id number] [place], [place] [address]Crbqwjoyi [Mass/Vol]0.3 mg/dLNormal0.2-1.3 [facility] on above:Order Comment: Specimen Type: BLOOD SPECIMENOrdering Facility: [facility] Address:[address] [place], [place] [address]Performed By: #### 40252-5, ####[facility] LABCLIA [id number] [place], [place] [address]Prpqyxw [Mass/Vol]9.9 mg/dLNormal8.5-10.2COhio State Health System on above: Order Comment: Specimen Type: BLOOD SPECIMENOrdering Facility: [facility] Address:[address] [place], [place] [address]Performed By: #### 62090- 8, ####[facility] LABCLIA [id number] [place], [place] [address]Llddmqke [Moles/Vol]105 mmol/GBenugr97-188NjhjotydzPremier Health on above:Order Comment: Specimen Type: BLOOD SPECIMENOrdering Facility: [facility] Address:[address] [place], [place] [address]Performed By: #### 49458-8, ####[facility] LABCLIA [id number] [place], [place] [address]OG0 [Moles/Vol]23 mmol/PFdyugt99-37SmokphdfdPremier Health on above:Order Comment: Specimen Type: BLOOD SPECIMENOrdering Facility: [facility] Address:[address] [place], [place] [address]Performed By: #### 95764- 8, 51537-1 ####[facility] LABCLIA [id number] [place], [place] [address]Mwybngdyxq [Mass/Vol]1.07 mg/dLNormal0.73-1.22 [facility] on above:Order Comment: Specimen Type: BLOOD SPECIMENOrdering Facility: [facility] Address:[address] [place], [place] [address]Performed By: #### 61090-4, ####[facility] LABIA [id number] [place] [address] Creatinine and Glomerular filtration rate.predicted panel (S/P/Bld)73 mL/min/1.73m???Normal>=60[facility] on above:Order Comment: Specimen Type: BLOOD SPECIMENOrdering Facility: [facility] Address:[address] [place], [place] [address]Result Comment: Estimated Glomerular Filtration Rate (eGFR) is calculated using the 2020 CKD-EPI cre atinine equation. This equation utilizes serum creatinine, sex, and age as parameters. The creatinine assay has traceable calibration to isotope dilution- mass spectrometry. Refer to KDIGO guidelines for clinical interpretation. In patients with unstable renal function, e.g. those with acute kidney injury, the eGFR may not accurately reflect actual GFR.Performed By: #### 75887-6, 20143-2 ####[facility] LABCLIA [id number] [place], [place] [address]Bgyxbki [Mass/Vol]138 mg/wCSeop64-69FdskfdhsnPremier Health on above:Order Comment: Specimen Type: BLOOD SPECIMENOrdering Facility: [facility] Address:[address] [place] [address]Swlucc Comment: The [place] Diabetes Association (ADA) provides guidance for cutoff values for fasting glucose and random glucose. The ADA defines fasting as no caloric intake for at least 8 hours. Fasting plasma glucose results between 100 to 125 mg/dL indicate increased risk for diabetes (prediab etes).Fasting plasma glucose results greater than or equal to 126 mg/dL meet the criteria for diagnosis of diabetes. In the absence of unequivocal hyperglycemia, results should be confirmed by repeattesting. In a patient with classic symptoms of hyperglycemia or hyperglycemic crisis, random plasmaglucose results greater than or equal to 200 mg/dL meet the criteria for diagnosis of diabetes.Reference: Standards of Medical Care in Diabetes 2016, [place] [employer] Association. Diabetes Care. 2016.39(Suppl 1).Performed By: #### 73145- 8, ####[facility] LABCLIA [id number] [place], [place] [address]Shzuytbxm [Moles/Vol]3.9 mmol/LNormal3.7-5.1 [facility] on above:Order Comment: Specimen Type: BLOOD SPECIMENOrdering Facility: [facility] Address:[address] [place], [place] [address]Zvdottawp By: #### 36796-0, ####[facility] LABCLIA [id number] [place], [place] [address]Xcvnqsm [Mass/Vol]7.2 g/dLNormal6.3-8.0[facility] on above:Order Comment: Specimen Type: BLOOD SPECIMENOrdering Facility: [facility] Address:[address] [place] [address]Vxjmbdulw By: #### 33701- 8, ####[facility] LABCLIA [id number] [place], [place] [address]Yooqdo [Moles/Vol]139 mmol/AMcalpk845-796MprulcavrPremier Health on above:Order Comment: Specimen Type: BLOOD SPECIMENOrdering Facility: [facility] Address:[address] [place] [address]Rvjgdavis By: #### 27399-6, ####[facility] LABCLIA [id number] [place], [place] [address]Pgho nitrogen [Mass/Vol]22 mg/dLNormal9-24[facility] on above: Order Comment: Specimen Type: BLOOD SPECIMENOrdering Facility: [facility] Address:[address] [place] [address]Esodipybb By: #### 06515- 8, ####[facility] LABIA [id number] [place], [place] [address]Fuxwzaynnc - Hematology and Cell countson 13-54-6282Llxkexokh/100 WBC (Bld)0.9 %[facility] HealthcareEosinophils/100 WBC (Bld) 4.3 %[facility] HealthcareErythrocyte distribution width (RBC) [Ratio]13.3 %11.5 - 15.0 %[facility] HealthcareHematocrit (Bld) [Volume fraction]45.3 %39.0 - 51.0 %NOM HealthcareHemoglobin (Bld) [Mass/Vol]15.2 g/dL13.0 - 17.0 g/dLNOOR Healthcare Lymphocytes/100 WBC (Bld)22.9 %NOMWestern Missouri Medical CenterMCH (RBC) [Entitic mass]29 pg26.0 - 34.0 pgNOCrittenton Behavioral HealthMCHC (RBC) [Mass/Vol]33.6 g/dL30.5 - 36.0 g/dLNOCrittenton Behavioral HealthMCV (RBC) [Entitic vol]86.5 fL80.0 - 100.0 fLNOOR Healthcare Monocytes/100 WBC (Bld)6.9 %[facility] HealthcareNeutrophils/100 WBC (Bld)64.5 %[facility] HealthcareRBC (Bld) [#/Vol]5.24 10*6/uL4.20 - 6.00 m/uLNOMS HealthcareMAGNESIUM on 83-39-1665Ggzjrjlap [Mass/Vol]2.3 mg/dL1.7 - 2.3 mg/dLAvita Health System [facility] Hospital Magnesium SerPl-mCncon 93-20-5939Mtysbjgkx [Mass/Vol]2.3 mg/dLNormal1.7-2.[address] [facility] Medical CenterComment on above:Order Comment: Specimen Type: BLOOD SPECIMENOrdering Facility: [facility] Address:[address] [place] [address]Wmlzoxpzf By: #### 32348-7, 00322-2 ####[facility] LABCLIA [id number] [place] [address] Magnesium [Mass/Vol]on 97-35-7694Hobdhjhiqiqjsh and review of laboratory results NormalAultman Orrville HospitalNo Panel Informationon 78-16-3109UYJR HealthcareCNCNPATEDon 92-29-7273PBLGGDCAHDxmgetYxsbmvsum Clinic ClevelandCNNURSE on 07-72-2993YNDZTVUBkvixoYoolpcffn [facility] ClevelandCNOVon 38-60-8402RCQFBmjrxh [facility] ClevelandCNPNon 27-89-9246SBDYYzzwwwLsiufoity Clinic Cleveland CNPNon 33-56-9186EBUJSipbqcIdfooqrcu Clinic ClevelandCBC W Auto Differential panel (Bld)on 75-91-9350Vjkjbetbr (Bld) [#/Vol]0.09 10*3/uLNIPremier Health Miami Valley Hospital Differential cell count method Nom (Bld)AutoCleveland ClinicEosinophils (Bld) [#/Vol]0.64 10*3/uLHighNINFAvita Health System Galion HospitalImmature granulocytes (Bld) [#/Vol] 0.04 10*3/uLNIPremier Health Miami Valley HospitalImmature granulocytes/100 WBC (Bld)0.4 % [facility] HospitalLymphocytes (Bld) [#/Vol]2.89 10*3/[facility] Medical CenterMonocytes (Bld) [#/Vol]0.68 10*3/uLNINFLake Creek ClinicNeutrophils (Bld) [#/Vol]5.52 10*3/uLAvita Health System Galion HospitalNucleated RBC (Bld) [#/Vol]NINFCMemorial HospitalNucleated RBC/100 WBC (Bld) [Ratio]0 %/100 WBCAvita Health System Galion HospitalPlatelet mean volume (Bld) [Entitic vol]9.3 fL9.0 - 12.7 fLClevelatrium health wake forest [facility] ClinicPlatelets (Bld) [#/Vol]217 10*3/uLAvita Health System Galion HospitalWBC (Bld) [#/Vol]9.86 10*3/[facility] Medical CenterBasophils (Bld) [#/Vol]0.09 10*3/uLNormal<0.11COhio State Health System on above: Order Comment: Specimen Type: BLOOD SPECIMENOrdering Facility: [facility] Address:[address] [place], [place] [address]Performed By: #### 44134- 8 ####[facility]ITALIA [id number] [place], [place] [address]Dlwgaowtu/100 WBC (Bld)0.9 %NormalPremier Health on above:Order Comment: Specimen Type: BLOOD SPECIMENOrdering Facility: [facility] Address:[address] [place], [place] [address]Performed By: #### 83358-7 ####[facility] LABIA [id number] [place], [place] [address]Bkzouvxpqsuw cell count method Nom (Bld)AutoNormalCOhio State Health System on above:Order Comment: Specimen Type: BLOOD SPECIMENOrdering Facility: [facility] Address:[address] [place], [place] [address]Performed By: #### 37567-9 ####[facility] LABIA [id number] [place], [place] [address]Rmvakgmmqsh (Bld) [#/Vol]0.64 10*3/uLHigh<0.46[facility] on above:Order Comment: Specimen Type: BLOOD SPECIMENOrdering Facility: [facility] Address:[address] [place], [place] [address]Performed By: #### 50148-5 ####[facility] LABCLIA [id number] [place], [place] [address]Yrjrufxdmhk/100 WBC (Bld)6.5 %NormalPremier Health on above:Order Comment: Specimen Type: BLOOD SPECIMENOrdering Facility: [facility] Address:[address] [place], [place] [address]Performed By: #### 69025-7 ####[facility] LABCLIA [id number] [place], [place] [address]Sqmcbbgcwac distribution width (RBC) [Ratio]13.2 %Normal 11.5-15.0[facility] on above:Order Comment: Specimen Type: BLOOD SPECIMENOrdering Facility: [facility] Address:[address] [place], [place] [address]Performed By: #### 71293-1 ####[facility] LABCLIA [id number] [place] [address] Hematocrit (Bld) [Volume fraction]44.0 %Ifbjzr98.0-51.0[facility] on above:Order Comment: Specimen Type: BLOOD SPECIMENOrdering Facility: [facility] Address:[address] [place], [place] [address]Performed By: #### 77346-4 ####[facility] LABCLIA [id number] [place], [place] [address]Hbhmrmttvx (Bld) [Mass/Vol]14.5 g/uPOdcmcz00.0-17.0[facility] on above:Order Comment: Specimen Type: BLOOD SPECIMENOrdering Facility: [facility] Address:[address], [place] [address]Performed By: #### 92904-6 ####[facility] LABCLIA [id number] [place], [place] [address]Zhuxkfqb granulocytes (Bld) [#/Vol]0.04 10*3/uLNormal <0.10[facility] on above:Order Comment: Specimen Type: BLOOD SPECIMENOrdering Facility: [facility] Address:[address] [place], [place] [address]Performed By: #### 78408-6 ####[facility] LABCLIA [id number] [place], [place] [address]Agcgacoj granulocytes/100 WBC (Bld)0.4 %NormalPremier Health on above: Order Comment: Specimen Type: BLOOD SPECIMENOrdering Facility: [facility] Address:[address] [place], [place] [address]Performed By: #### 12669- 8 ####[facility] LABIA [id number] [place], [place] [address]Qbjlctkwcus (Bld) [#/Vol]2.89 10*3/uLNormal1.00-4.00 [facility] on above:Order Comment: Specimen Type: BLOOD SPECIMENOrdering Facility: [facility] Address:[address] [place], [place] [address]Performed By: #### 21511-1 ####[facility] LABIA [id number] [place], [place] [address]Rafojyldnxu/100 WBC (Bld)29.3 %NormalPremier Health on above:Order Comment: Specimen Type: BLOOD SPECIMENOrdering Facility: [facility] Address:[address] [place], [place] [address]Performed By: #### 33314-3 ####[facility] LABIA [id number] [place], [place] [address]BZT (RBC) [Entitic mass]29.2 loPambfz96.0-34.0[facility] on above:Order Comment: Specimen Type: BLOOD SPECIMENOrdering Facility: [facility] Address:[address] [place], [place] [address]Performed By: #### 74906-6 ####[facility] LABCLIA [id number] [place], [place] [address]MTYP (RBC) [Mass/Vol]33.0 g/sQYxhstt58.5-36.0[facility] on above: Order Comment: Specimen Type: BLOOD SPECIMENOrdering Facility: [facility] Address:[address] [place], [place] [address]Performed By: #### 45382- 8 ####[facility] LABCLIA [id number] [place], [place] [address]CXO (RBC) [Entitic vol]88.7 qGPbwfoe84.0-100.0[facility] on above:Order Comment: Specimen Type: BLOOD SPECIMENOrdering Facility: [facility] Address:[address] [place], [place] [address]Performed By: #### 23379-8 ####[facility] LABCLIA [id number] [place], [place] [address]Erelalphq (Bld) [#/Vol]0.68 10*3/uLNormal<0.87[facility] on above:Order Comment: Specimen Type: BLOOD SPECIMENOrdering Facility: [facility] Address:[address] [place], [place] [address]Performed By: #### 25358- 8 ####[facility] LABCLIA [id number] [place], [place] [address]Tnxkapjar/100 WBC (Bld)6.9 %NormalPremier Health on above:Order Comment: Specimen Type: BLOOD SPECIMENOrdering Facility: [facility] Address:[address] [place], [place] [address]Performed By: #### 33788-2 ####[facility] LABCLIA [id number] [place], [place] [address]Ydoieiqvfnd (Bld) [#/Vol]5.52 10*3/uLNormal1.45-7.50[facility] on above:Order Comment: Specimen Type: BLOOD SPECIMENOrdering Facility: [facility] Address:[address] [place], [place] [address]Performed By: #### 51078-2 ####[facility] LABCLIA [id number] [place], [place] [address]Oretmoookel/100 WBC (Bld)56.0 %NormalPremier Health on above:Order Comment: Specimen Type: BLOOD SPECIMENOrdering Facility: [facility] Address:[address] [place], [place] [address]Performed By: #### 27962-3 ####[facility] LABCLIA [id number] [place], [place] [address]Djermjhqp RBC (Bld) [#/Vol] 10*3/uLNormal<0.01[facility] on above:Order Comment: Specimen Type: BLOOD SPECIMENOrdering Facility: [facility] Address:[address] [place], [place] [address]Performed By: #### 30799-7 ####[facility] LABCLIA [id number] [place], [place] [address]Qtnhenbgv RBC/100 WBC (Bld) [Ratio]0.0 /100 WBCNormal [facility] on above:Order Comment: Specimen Type: BLOOD SPECIMENOrdering Facility: [facility] Address:[address] [place], [place] [address]Performed By: #### 30311-3 ####[facility] LABIA [id number] [place], [place] [address]Enqwqmef mean volume (Bld) [Entitic vol]9.3 fLNormal9.0-12.7COhio State Health System on above:Order Comment: Specimen Type: BLOOD SPECIMENOrdering Facility: [facility] Address:[address] [place] [address] Performed By: #### 51123-3 ####[facility] LABCLIA [id number] [place], [place] [address]Rcihmjjcx (Bld) [#/Vol]217 10*3/cOZnjcmx379-263ApptzmmkdPremier Health on above:Order Comment: Specimen Type: BLOOD SPECIMENOrdering Facility: [facility] Address:[address] [place], [place] [address]Performed By: #### 95463-0 ####[facility] LABIA [id number] [place], [place] [address]TPT (Bld) [#/Vol]4.96 10*6/uLNormal4.20-6.00[facility] on above:Order Comment: Specimen Type: BLOOD SPECIMENOrdering Facility: [facility] Address:[address] [place], [place] [address]Performed By: #### 91473-5 ####[facility] LABIA [id number] [place], [place] [address]TKW (Bld) [#/Vol]9.86 10*3/uLNormal3.70-11.00[facility] on above: Order Comment: Specimen Type: BLOOD SPECIMENOrdering Facility: [facility] Address:[address] [place], [place] [address]Performed By: #### 88188- 8 ####[facility] LABCLIA [id number] [place], [place] [address]PFD CBC W AUTO DIFF BLDon 28-24-6723SCG BASOPHILS # BLD AUTO0.09NINFNOMS HealthcareF DIFFERENTIAL METHOD BLDAutoNOMS HealthcareCCF EOSINOPHIL # BLD AUTO0.64HighNINFNOMS HealthcareCCF LYMPHOCYTES # BLD AUTO2.89 NOMS [facility] MONOCYTES # BLD AUTO0.68NINFThe Rehabilitation Institute NEUTROPHILS # BLD AUTO5.52NOM[facility] NRBC # BLD AUTO<0.01NINFThe Rehabilitation Institute NRBC/100 WBC BLD-RTO0/100 WBCThe Rehabilitation Institute PLATELET # BLD MGFA132DUYEMosaic Life Care at St. Joseph PMV BLD AUTO9.3 fL9.0 - 12.7 fLThe Rehabilitation Institute WBC # BLD AUTO 9.86NOC[facility] GRANULOCYTES # BLD AUTO0.04NINFNevada Regional Medical Center GRANULOCYTES/LEUK NFR BLD AUTO0.4 %[facility] HospitalSpecimen Type: BLOOD SPECIMEN [facility] Address: [address] [place] [address] Original Ordering Provider: ARIANNE BENITEZENCOMPASS REHABILITATION HOSP[facility] OF WESTERN MASSACHUSETTSTEDon 08-11-2024 CNCNPATEDNormalCkindred hospital daytonand [facility] Regional HospitalCNOVon 12-55-5044YHHBOeywxpYanzqpzqt Clinic ClevelandCNPNon 60-30-1468KTIHRyjsztJdsgjhbwi Clinic ClevelandCT CHEST W IVCONon 29-80-6278PE CHEST W IVCONNTrumbull Memorial Hospital Chest W contrast Silvestre 08-11-2024* * *Final Report* * * DATE OF EXAM: Aug 11 2024 7:58AM [facility] 0539 - CT CHEST W IVCON / PROCEDURE 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 MQ: CTCWR_5 Contrast: 50 mL Omnip[address] Dose-Length Product: 346 mGy*cm CT Dose Reduction Employed: Automated exposure control(AEC) and iterative recon Comparison: Outside hospital CT abdomen and pelvis 04/19/2024 RESULT: Lines, tubes, and devices: None. Lung parenchyma and airways: Trachea and central airways are patent. Subpleural reticular opacities throughout both lungs most pronounced in the right lower lobe. Mild bronchiectasis and bronchiolectasis at the right lower lobe/right lung base. 5 mm nodule left upper lobe (image 65). A few scattered calcified granulomas. Pleural space: No pleural effusion or pneumothorax. Lower neck, lymph nodes, and mediastinum: No axillary, supraclavicular, mediastinal or hilar lymphadenopathy by CT size criteria. Heart, pericardium, and thoracic vessels: The heart is normal in size. No pericardial effusion. The thoracic aorta and main pulmonary artery are normal in caliber. Atherosclerotic calcifications of the thoracic aorta and coronary arteries. Bones/Soft Tissues: No aggressive osseous lesions. Upper abdomen: Visualized upper abdomen is grossly unremarkable. Packaging Clerk (topogram) images: Unremarkable. IMPRESSION: 5 mm indeterminate left upper lobe nodule. Continued follow-up is recommended. Transcribe Date/Time: Aug 11 2024 8:12A Dictated by: JUNG LAY MD This examination was interpreted and the report reviewed and electronically signed by: JUNG LAY MD on Aug 11 2024 8:21AM EST Thank you for allowing us to participate in the care of your patient. Should there be any questions regarding this interpretation, please call [phone]. If you are unable to reach us at the number above, please feel free to contact [facility] at [phone]. 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 MQ: CTCWR_5 Contrast: 50 mL Omnipaque [address] Dose-Length Product: 346 mGy*cm CT Dose Reduction Employed: Automated exposure control(AEC) and iterative recon Comparison: Outside hospital CT abdomen and pelvis 04/19/2024 RESULT: Lines, tubes, and devices: None. Lung parenchyma and airways: Trachea and central airways are patent. Subpleural reticular opacities throughout both lungs most pronounced in the right lower lobe. Mild bronchiectasis and bronchiolectasis at the right lower lobe/right lung base. 5 mm nodule left upper lobe (image 65). A few scattered calcified granulomas. Pleural space: No pleural effusion or pneumothorax. Lower neck, lymph nodes, and mediastinum: No axillary, supraclavicular, mediastinal or hilar lymphadenopathy by CT size criteria. Heart, pericardium, and thoracic vessels: The heart is normal in size. No pericardial effusion. The thoracic aorta and main pulmonary artery are normal in caliber. Atherosclerotic calcifications of the thoracic aorta and coronary arteries. Bones/Soft Tissues: No aggressive osseous lesions. Upper abdomen: Visualized upper abdomen is grossly unremarkable. Packaging Clerk (topogram) images: Unremarkable. IMPRESSION: 5 mm indeterminate left upper lobe nodule. Continued follow-up is recommended. Transcribe Date/Time: Aug 11 2024 8:12A Dictated by: JUNG LAY MD This examination was interpreted and the report reviewed and electronically signed by: JUNG LAY MD on Aug 11 2024 8:21AM EST Thank you for allowing us to participate in the care of your patient. Should there be any questions regarding this interpretation, please call [phone]. If you are unable to reach us at the number above, please feel free to contact [facility] eRadiology at [phone]. [id number]^AGFA_IDC^SI^ACN NOMS HealthcareIMPRESSION: 5 mm indeterminate left upper lobe nodule. Continued follow-up is recommended. Transcribe Date/Time: Aug 11 2024 8:12A Dictated by: JUNG LAY MD This examination was interpreted and the report reviewed and electronically signed by: JUNG LAY MD on Aug 11 2024 8:21AM EST Thank you for allowing us to participate in the care of your patient. Should there be any questions regarding this interpretation, please call [phone]. 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 MQ: CTCWR_5 Contrast: 50 mL Omnipaque [address] Dose-Length Product: 346 mGy*cm CT Dose Reduction Employed: Automated exposure control(AEC) and iterative recon Comparison: Outside hospital CT abdomen and pelvis 04/19/2024 RESULT: Lines, tubes, and devices: None. Lung parenchyma and airways: Trachea and central airways are patent. Subpleural reticular opacities throughout both lungs most pronounced in the right lower lobe. Mild bronchiectasis and bronchiolectasis at the right lower lobe/right lung base. 5 mm nodule left upper lobe (image 65). A few scattered calcified granulomas. Pleural space: No pleural effusion or pneumothorax. Lower neck, lymph nodes, and mediastinum: No axillary, supraclavicular, mediastinal or hilar lymphadenopathy by CT size criteria. Heart, pericardium, and thoracic vessels: The heart is normal in size. No pericardial effusion. The thoracic aorta and main pulmonary artery are normal in caliber. Atherosclerotic calcifications of the thoracic aorta and coronary arteries. Bones/Soft Tissues: No aggressive osseous lesions. Upper abdomen: Visualized upper abdomen is grossly unremarkable. Packaging Clerk (topogram) images: Unremarkable. 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 MQ: CTCWR_5 Contrast: 50 mL Omnipaque [address] Dose-Length Product: 346 mGy*cm CT Dose Reduction Employed: Automated exposure control(AEC) and iterative recon Comparison: Outside hospital CT abdomen and pelvis 04/19/2024 RESULT: Lines, tubes, and devices: None. Lung parenchyma and airways: Trachea and central airways are patent. Subpleural reticular opacities throughout both lungs most pronounced in the right lower lobe. Mild bronchiectasis and bronchiolectasis at the right lower lobe/right lung base. 5 mm nodule left upper lobe (image 65). A few scattered calcified granulomas. Pleural space: No pleural effusion or pneumothorax. Lower neck, lymph nodes, and mediastinum: No axillary, supraclavicular, mediastinal or hilar lymphadenopathy by CT size criteria. Heart, pericardium, and thoracic vessels: The heart is normal in size. No pericardial effusion. The thoracic aorta and main pulmonary artery are normal in caliber. Atherosclerotic calcifications of the thoracic aorta and coronary arteries. Bones/Soft Tissues: No aggressive osseous lesions. Upper abdomen: Visualized upper abdomen is grossly unremarkable. Packaging Clerk (topogram) images: Unremarkable. IMPRESSION IMPRESSION: 5 mm indeterminate left upper lobe nodule. Continued follow-up is recommended. Transcribe Date/Time: Aug 11 2024 8:12A Dictated by: JUNG LAY MD This examination was interpreted and the report reviewed and electronically signed by: JUNG LAY MD on Aug 11 2024 8:21AM EST Thank you for allowing us to participate in the care of your patient. Should there be any questions regarding this interpretation, please call [phone]. If you are unable to reach us at the number above, please feel free to contact [facility] at [phone]. [facility] HospitalRadiology Study observation (narrative)[facility] HospitalRadiology Study observation (narrative)NOMS HealthcareCT Chest W contrast IVOrdered By: Radiologist Radiology on 18-61-5075[employer] Work Phone: comprehensive metabolic 2000 panelOrdered By: Catarina Guerrero on 62-70-5625Skfkcsh [Mass/Vol]4.1 g/dL3.9 - 4.9 g/dLLake Creek ClinicALP [Catalytic activity/Vol]105 U/L38 - 113 U/LCleveland ClinicALT [Catalytic activity/Vol]20 U/L10 - 54 U/LCleveland ClinicAnion gap [Moles/Vol]12 mmol/L8 - 15 mmol/LCleveland ClinicAST [Catalytic activity/Vol][facility] HospitalComment on above:Unable to assay. Specimen significantly hemolyzed.Bilirubin [Mass/Vol]0.2 mg/dL0.2 - 1.3 mg/dLClebethesda north hospital ClinicCalcium [Mass/Vol]9.7 mg/dL8.5 - 10.2 mg/dL Tai ClinicChloride [Moles/Vol]110 mmol/LHigh98 - 107 mmol/LCleveland ClinicCO2 [Moles/Vol]24 mmol/L22 - 30 mmol/LCleveland ClinicCreatinine [Mass/Vol]1.07 mg/dL0.73 - 1.22 mg/dLCleveland ClinicGFR/1.73 sq M.predicted among non-blacks MDRD (S/P/Bld) [Vol rate/Area]73 mL/min/{1.73_m2}- PINF [facility] HospitalComment on above:Estimated Glomerular Filtration Rate (eGFR) is calculated using the 2020 CKD-EPI creatinine equation. This equation utilizes serum creatinine, sex, and age as parameters. The creatinine assay has traceable calibration to isotope dilution-mass spectrometry. Refer to KDIGO guidelines for clinical interpretation. In patients with unstable renal function, e.g. those with acute kidney injury, the eGFRmay not accurately reflect actual GFR.Glucose [Mass/Vol]156 mg/gURmvy18 - 99 mg/dLAvita Health System Galion HospitalComment on above:The [place] Diabetes Association (ADA) provides guidance for cutoff values for fasting glucose andrandom glucose. The ADA defines fasting as no caloric intake for at least 8 hours. Fasting plasma glucose results between 100 to 125 mg/dL indicate increased risk for diabetes (prediabetes). Fasting plasma glucose results greater than or equal to 126 mg/dL meet the criteria for diagnosis of diabetes. In the absence of unequivocal hyperglycemia, results should be confirmed by repeat testing. In a patient with classic symptoms of hyperglycemia or hyperglycemic crisis, random plasma glucose results greater than or equal to 200 mg/dL meet the criteria for diagnosis of diabetes. Reference: Standards of Medical Care in Diabetes 2016, [place] [employer]. Diabetes Care. 2016.39(Suppl 1). Interpretation and review of laboratory resultsAbnormalCleveland ClinicPotassium [Moles/Vol]4.4 mmol/L3.7 - 5.1 mmol/LCleveland ClinicProtein [Mass/Vol]6.5 g/dL 6.3 - 8.0 g/dLCleveland ClinicSodium [Moles/Vol]146 mmol/OZtiq067 - 144 mmol/L [facility] HospitalUrea nitrogen [Mass/Vol]21 mg/dL9 - 24 mg/dLRiverside Methodist Hospitalprehensive metabolic 2000 panelon 37-14-4104Ztssnha [Mass/Vol]4.1 g/dLNormal3.9-4.9COhio State Health System on above:Order Comment: Specimen Type: BLOOD SPECIMENOrdering Facility: [facility] Address:[address] [place], [place] [address]Performed By: #### 74315- 8 ####[facility] LABCLIA [id number] [place], [place] [address]DAC [Catalytic activity/Vol]105 U/MQxhgfj61-903QgtnruijzPremier Health on above:Order Comment: Specimen Type: BLOOD SPECIMENOrdering Facility: [facility] Address:[address] [place], [place] [address]Performed By: #### 07889-8 ####[facility] LABCLIA [id number] [place], [place] [address]LPJ [Catalytic activity/Vol]20 U/YXrdmlg29-77GsxmjqgzwPremier Health on above:Order Comment: Specimen Type: BLOOD SPECIMENOrdering Facility: [facility] Address:[address] [place], [place] [address]Performed By: #### 74322- 8 ####[facility] LABCLIA [id number] [place], [place] [address]Lctuu gap [Moles/Vol]12 mmol/LNormal8-15[facility] on above:Order Comment: Specimen Type: BLOOD SPECIMENOrdering Facility: [facility] Address:[address] [place], [place] [address]Performed By: #### 83302-9 ####[facility] LABIA [id number] [place], [place] [address]QZJ [Catalytic activity/Vol] NormalCleveland Clinic ClevelandComment on above:Order Comment: Specimen Type: BLOOD SPECIMENOrdering Facility: [facility] Address:[address] [place], [place] [address]Result Comment: Unable to assay. Specimen significantly hemolyzed.Performed By: #### 66958-9 ####[facility] LABCLIA [id number] [place], [place] [address]Nbjcvoohu [Mass/Vol]0.2 mg/dLNormal0.2-1.3COhio State Health System on above:Order Comment: Specimen Type: BLOOD SPECIMENOrdering Facility: [facility] Address:[address] [place], [place] [address]Performed By: #### 16793-2 ####[facility] LABCLIA [id number] [place], [place] [address]Ddhpkoq [Mass/Vol]9.7 mg/dLNormal8.5-10.2COhio State Health System on above:Order Comment: Specimen Type: BLOOD SPECIMENOrdering Facility: [facility] Address:[address] [place], [place] [address]Performed By: #### 48210-3 ####[facility] LABCLIA [id number] [place], [place] [address]Axutnbad [Moles/Vol]110 mmol/L Cylm55-014YsuuztgmpPremier Health on above:Order Comment: Specimen Type: BLOOD SPECIMENOrdering Facility: [facility] Address:[address] [place], [place] [address]Performed By: #### 45768-3 ####[facility] LABCLIA [id number] [place] [address] CO2 [Moles/Vol]24 mmol/TEppbwg00-27TxklttkojPremier Health on above: Order Comment: Specimen Type: BLOOD SPECIMENOrdering Facility: [facility] Address:[address] [place], [place] [address]Performed By: #### 12203- 8 ####[facility] LABCLIA [id number] [place], [place] [address]Blhoexbggq [Mass/Vol]1.07 mg/dLNormal0.73-1.22[facility] on above:Order Comment: Specimen Type: BLOOD SPECIMENOrdering Facility: [facility] Address:[address] [place] [address]Cwxgmzfhv By: #### 23048-1 ####[facility] LABIA [id number] [place], [place] [address]Ppgugotzmx and Glomerular filtration rate.predicted panel (S/P/Bld)73 mL/min/1.73m???Normal>=60 [facility] on above:Order Comment: Specimen Type: BLOOD SPECIMENOrdering Facility: [facility] Address:[address] [place], [place] [address]Result Comment: Estimated Glomerular Filtration Rate (eGFR) is calculated using the 2020 CKD-EPI creatinine equation. This equation utilizes serum creatinine, sex, and age as parameters. The creatinine assay has traceable calibration to isotope dilution-mass spectrometry. Refer to KDIGO guidelines for clinical interpretation. In patients with unstable renal function, e.g. those with acute kidney injury, the eGFR may not accurately reflect actual GFR.Performed By: #### 63511-3 ####[facility] LABIA [id number] [place], [place] [address]Oswmscf [Mass/Vol]156 mg/uPHttr27-61GxjyehhgpPremier Health on above:Order Comment: Specimen Type: BLOOD SPECIMENOrdering Facility: [facility] Address:[address] [place], [place] [id number] Comment: The [place] Diabetes Association (ADA) provides guidance for cutoff values for fast ing glucose and random glucose. The ADA defines fasting as no caloric intake for at least 8 hours. Fasting plasma glucose results between 100 to 125 mg/dL indicate increased risk for diabetes (prediabetes).Fasting plasma glucose results greater than or equal to 126 mg/dL meet the criteria for diagnosis of diabetes. In the absence of unequivocal hyperglycemia, results should be confirmed by repeattesting. In a patient with classic symptoms of hyperglycemia or hyperglycemic crisis, random plasmaglucose results greater than or equal to 200 mg/dL meet the criteria for diagnosis of diabetes.Reference: Standards of Medical Care in Diabetes 2016, [place] [employer]. Diabetes Care. 2016.39(Suppl 1).Performed By: #### 77429-4 ####[facility] LABCLIA [id number] [place], [place] [address]Hnqyxbioe [Moles/Vol]4.4 mmol/LNormal3.7-5.1COhio State Health System on above: Order Comment: Specimen Type: BLOOD SPECIMENOrdering Facility: [facility] Address:[address] [place], [place] [address]Performed By: #### 11091- 8 ####[facility] [facility] LABCLIA [id number] [place], [place] [address]Hnyhmwi [Mass/Vol]6.5 g/dLNormal6.3-8.0[facility] on above:Order Comment: Specimen Type: BLOOD SPECIMENOrdering Facility: [facility] Address:[address] [place], [place] [address]Performed By: #### 90138-1 ####[facility] LABCLIA [id number] [place], [place] [address]Ojusui [Moles/Vol]146 mmol/L Rjuw202-253PtcnojadxPremier Health on above:Order Comment: Specimen Type: BLOOD SPECIMENOrdering Facility: [facility] Address:[address] [place], [place] [address]Performed By: #### 30116-9 ####[facility] LABCLIA [id number] [place] [address] Urea nitrogen [Mass/Vol]21 mg/dLNormal9-24[facility] on above:Order Comment: Specimen Type: BLOOD SPECIMENOrdering Facility: [facility] Address:[address] [place], [place] [address]Performed By: #### 48060-1 ####[facility] LABCLIA [id number] [place], [place] [address]Pmonvhwhob - Hematology and Cell countson 08-11-2024 Basophils/100 WBC (Bld)0.9 %[facility] HospitalEosinophils/100 WBC (Bld)6.5 %[facility] HospitalErythrocyte distribution width (RBC) [Ratio]13.2 %11.5 - 15.0 %[facility] HospitalHematocrit (Bld) [Volume fraction]44 %39.0 - 51.0 %[facility] Hemoglobin (Bld) [Mass/Vol]14.5 g/dL13.0 - 17.0 g/dLGolden Valley Memorial Hospital Lymphocytes/100 WBC (Bld)29.3 %[facility] HospitalMCH (RBC) [Entitic mass]29.2 pg 26.0 - 34.0 pgGolden Valley Memorial HospitalMCHC (RBC) [Mass/Vol]33 g/dL30.5 - 36.0 g/dLGolden Valley Memorial HospitalMCV (RBC) [Entitic vol]88.7 fL80.0 - 100.0 fLGolden Valley Memorial Hospital Monocytes/100 WBC (Bld)6.9 %[facility] HospitalNeutrophils/100 WBC (Bld)56 %[facility] HospitalRBC (Bld) [#/Vol]4.96 10*6/uL4.20 - 6.00 m/uLGolden Valley Memorial HospitalNo Panel Informationon 62-21-1094Axlguynhtqsafb and review of laboratory resultsAbnormal Atrium HealthCNOVSPon 85-37-0619NJYOUJCalwmfMqzxngibf Clinic ClevelandCNPNon 36-79-3802RLGPFbjchxQcwcoxbliCentervilleCNPNon 08-02-[address] John Medical CenterCNPNon 29-60-3402YJPDJwyyolBzqutgmirCentervilleTIS PATH BX REPORTon [id number] DISCLAIMERNOMS Mansfield HospitalComment on above:Laboratory Developed Test (LDT) Disclaimer: Performance characteristics of immunohistochemical, immunofluorescent, and chromogenic in-situ hybridization tests have been determined by the performing laboratory within [facility]'s [facility] Pathology and Laboratory Medicine Department ([facility], [facility], [facility], [facility], [facility], [facility], or [facility]) in a manner consistent with CLIA requirements. One or more of these tests may not have been cleared or approved by the FDA. RT-PLM is regulated under CLIA as qualified to perform high- complexity testing. These tests are used for clinical purposes. These should not be regarded asinvestigational or for research. Positive and negative controls stain appropriately. BLOCK FOR ADDITIONAL BIOMARKERS/MOLECULAR [id number] CASE REPORTNOCrittenton Behavioral HealthComment on above:Surgical Pathology Report Case: [id number] Authorizing Provider: Babak Hernández MD Collected: 07/18/2024 04:36 PM Ordering Location: Admitting Received: 07/18/2024 05:05 PM Pathologist: Fredis Walton MD Specimens: A) - Bladder, Biopsy, lower posterior wall B) - Bladder, Biopsy, Left lateral wall C) - Bladder, Biopsy, Right lateral wall D) - Bladder, Biopsy, Dome E) - Bladder, Biopsy, Posterior bladder wall tumor [facility] CLINICAL HISTORYNOCrittenton Behavioral HealthComment on above:Pre-op diagnosis: Malignant neoplasm of urinary bladder, unspecified site (HCC) [C67.9] [facility] DIAGNOSIS COMMENTNOCrittenton Behavioral HealthComment on above:Selected slides from block E were reviewed at the genitourinary pathology consensus conference on July 20, 2024, with Ran Nagel Myles, Nguyen, and Yazan, who agree with interpretation of lamina propria invasion and no definite variant histology. F FINAL DIAGNOSISNOCrittenton Behavioral HealthComment on above:A. Urinary bladder, lower posterior wall, biopsy: - Benign urinary bladder tissue with no significant pathologic change. - Negative for dysplasia or malignancy. - Muscularis propria is not present for evaluation. B. Urinary bladder, left lateral wall, biopsy: - Benign urinary bladder tissue with von Brunn nests. - Negative for dysplasia or malignancy. - Muscularis propria is not present for evaluation. C. Urinary bladder, right lateral wall, biopsy: - Benign urinary bladder tissue with partial mucosal denudation and minor chronic inflammation. - Negative for dysplasia or malignancy. - Muscularis propria is present and negative for neoplasm. D. Urinary bladder, dome, biopsy: - Urothelial carcinoma in situ. - No invasion identified (at least pTis). - Muscularis propria is not present for evaluation. E. Urinary bladder, posterior bladder wall, biopsy: - Urothelial carcinoma, papillary and focally invasive, high-grade. - Focal lamina propria invasion is present (at least pT1). - Muscularis propria is not present for evaluation. at 1249 EDT [facility] FINAL PERFORMING [facility] Pennsylvania Health SystemComment on above:Diagnostic interpretation performed at: [facility], [address] [place] [address], [facility] [place] [address] CLIA# [id number] Sampler Ovens: Henok Portillo MD [facility] GROSS [facility] HospitalComment on above:A. Bladder, Biopsy Received in formalin is one piece of randolph, rubbery tissue measuring 0.4 x 0.4 x 0.1 cm. Totally submitted in one cassette. B. Bladder, Biopsy Received in formalin is one piece of randolph to randolph-white, rubbery tissue measuring 0.5 x 0.4 x 0.1 cm.Totally submitted in one cassette. C. Bladder, Biopsy Received in formalin is one piece of randolph-pink, rubbery tissue measuring 0.5 x 0.3 x 0.1 cm. Totallysubmitted in one cassette. D. Bladder, Biopsy Received in formalin is one piece of randolph-pink, rubbery tissue measuring 0.6 x 0.5 x 0.1 cm. Totallysubmitted in one cassette. E. Bladder, Biopsy Received in formalin is one piece of randolph-pink, rubbery tissue measuring 0.6 x 0.5 x 0.3 cm. Totallysubmitted in one cassette. DB July 18, 2024 10:00 PM Gross examination performed at [facility], [address] [place] [address] Specimen Type: TISSUE SPECIMEN [facility] Address: [address] [place] [address] Original Ordering Provider: BABAK SKELTON HealthcareANES POSTPROC EVALon [id number] POSTPROC EVALNormCleveland Clinic Children's Hospital for RehabilitationANES PRE-OPon 31-89-9136FQVR PRE-OPNormalUniversity Hospitals St. John Medical CenterOPERATIVE NOon 07-18-2024 OPERATIVE NONCentervillePathology biopsy report Vincent (Tiss)on [id number] DISCLAIMERNoAvita Health System on above:Order Comment: Specimen Type: TISSUE SPECIMENOrdering Facility: [facility] Address: [address] [place], [place] [address]Result Comment: Laboratory Developed Test (LDT) Disclaimer:Performance characteristics of immunohistochemical, immunofluorescent, and chromogenic in-situ hybridization tests have been determined by the performing laboratory within [facility]'s [facility] Pathology and Laboratory Medicine Department ([facility], [facility], [facility], [facility], [facility], [facility], or [facility]) in a manner consistent with CLIA requirements. One or more of these tests may not have been cleared or approved by the FDA. RT-PLM is regulated under CLIA as qualified to perform high-complexity testing. These tests are used for clinical purposes. These should not be regarded as investigational or for research. Positive and negative controls stain appropriately.Performed By: #### 13780-7 ####[facility] LABIA [id number] [address]ETBLOCK FOR ADDITIONAL BIOMARKERS/MOLECULAR TEBGWLLB5LoslxxPjhqgajdnAvita Health System on above: Order Comment: Specimen Type: TISSUE SPECIMENOrdering Facility: [facility] Address: [address] [place], [place] [address]Performed By: #### 32313-2 ####[facility] LABIA [id number] [address]ETCASE REPORTNormal [facility] on above:Order Comment: Specimen Type: TISSUE SPECIMENOrdering Facility: [facility] Address: [address] [place], [place] [address]Result Comment: Surgical Pathology Report Case: [id number] Provider: Babak Hernández MD Collected: 07/18/2024 04:36 PMOrdering Location: Admitting Received: 07/18/2024 05:05 PMPathologist: Fredis Prabhakar MDSpecimens: A) - Bladder, Biopsy, lower posterior wall B) - Bladder, Biopsy, Leftlateral wall C) - Bladder, Biopsy, Right lateral wall D) - Bladder, Biopsy, Dome E) - Bladder, Biopsy, Posterior bladder wall tumor Performed By: #### 49068-8 ####[facility] LABIA [id number] [address] CLINICAL HISTORYNoAvita Health System on above:Order Comment: Specimen Type: TISSUE SPECIMENOrdering Facility: [facility] Address: [address] [place], [place] [address]Result Comment: Pre-op diagnosis:Malignant neoplasm of urinary bladder, unspecified site (HCC) [C67.9] Performed By: #### 45136-6 ####[facility] [id number] [address] DIAGNOSIS COMMENTNoAvita Health System on above:Order Comment: Specimen Type: TISSUE SPECIMENOrdering Facility: [facility] Address: [address] [place], [place] [address]Result Comment: Selected slides from block E were reviewed at the genitourinary pathology consensusconference on July 20, 2024, with Ran Nagel Myles, Nguyen, and Yazan, who agree with interpretation of lamina propria invasion and no definite variant histology.Performed By: #### 40356-3 ####[facility] [id number] [address] FINAL DIAGNOSISNoAvita Health System on above:Order Comment: Specimen Type: TISSUE SPECIMENOrdering Facility: [facility] Address: [address] [place], [place] [address]Result Comment: A. Urinary bladder, lower posterior wall, biopsy:- Benign urinary bladder tissue with no significant pathologic change.- Negative for dysplasia or malignancy.- Muscularis propria is not present for evaluation.B. Urinary bladder, left lateral wall, biopsy:- Benign urinary bladder tissue with von Brunn nests.- Negative for dysplasia or malignancy.- Muscularis propria is not present for evaluation.C. Urinary bladder, right lateral wall, biopsy:- Benign urinary bladder tissue with partial mucosal denudation and minor chronic inflammation.- Negative for dysplasia or malignancy.- Muscularis propria is present and negative for neoplasm.D. Urinary bladder, dome, biopsy:- Urothelial carcinoma in situ.- No invasion identified (at least pTis).- Muscularis propria is not present for evaluation.E. Urinary bladder, posterior bladder wall, biopsy:- Urothelial carcinoma, papillary and fo mode invasive, high-grade.- Focal lamina propria invasion is present (at least pT1).- Muscularis propria is not present for evaluation. at 1249 EDTPerformed By: #### 81948-4 ####[facility] LABCLIA [id number] [place] [address] [place] STATES OF AMERICAFINAL PERFORMING LABNormal [facility] on above:Order Comment: Specimen Type: TISSUE SPECIMENOrdering Facility: [facility] Address: [address] [place], [place] [address]Result Comment: Diagnostic interpretation performed at: [facility], [address] [place] [address] CLIA# [id number] Director: Henok Portillo MD Performed By: #### 25734-0 ####[facility] LABCLIA [id number] [address] STATES [place] GROSS DESCRIPTIONNoalCOhio State Health System on above:Order Comment: Specimen Type: TISSUE SPECIMENOrdering Facility: [facility] Address: [address] [place], [place] [address]Result Comment: A. Bladder, BiopsyReceived in formalin is one piece of randolph, rubbery tissue measuring 0.4 x 0.4 x 0.1 cm. Totally submitted in one cassette.B. Bladder, BiopsyReceived in formalin is one piece of randolph to randolph-white, rubbery tissue measuring 0.5 x 0.4 x 0.1 cm. Totally submitted in one cassette.C. Bladder, BiopsyReceived in formalin is one piece of randolph-pink, rubbery tissue measuring 0.5 x 0.3 x 0.1 cm. Totally submitted in one cassette.D. Bladder, BiopsyReceived in formalin is one piece of randolph-pink, rubbery tissue measuring 0.6 x 0.5 x 0.1 cm. Totally submitted in one cassette.E. Bladder, BiopsyReceived in formalin is one piece of randolph-pink, rubbery tissue measuring 0.6 x 0.5 x 0.3 cm. Totally submitted in one cassette.DB July 18, 2024 10:00 PMGross examination performed at [facility], [facility] [place], [place] [address]Performed By: #### 11708-0 ####[facility] LABCLIA [id number] [address]ETCNCOon [id number] TextNormalCWadsworth-Rittman Hospital PELVIS BLADDER WO/W IVCONon 07-12-2024* * *Final Report* * * DATE OF EXAM: Jul 11 2024 7:42PM QBM 0737 - MRI PELVIS BLADDER WO/W IVCON / PROCEDURE REASON: bladder cancer * * * * Physician Interpretation * * * * EXAMINATION: MRI PELVIS BLADDER WO/W IVCON CLINICAL HISTORY: Muscle invasive urinary bladder urothelial carcinoma. Patient initially presented with hematuria with cystoscopy revealing a bladder mass and pathology confirming muscle invasive high-grade urothelial carcinoma (06/02/2024). History of chronic deep vein thrombosis, on Coumadin for over 30 years. Plan for cystoscopy with bladder biopsy early July. MRI of the pelvis performed for staging and preprocedural assessment. Technique: Multiplanar multiecho MRI pelvis performed before and following intravenous contrast administration. The following sequences were submitted for interpretation: Coronal T2 haste, sagittal T2, axial T2, coronal T2, axial diffusion-weighted imaging, axial ADC map, axial T1 pre and postcontrast, axial T1 postcontrast subtraction images, axial T1 postcontrast whole pelvis, 3 plane localizer. Exam Date: 07/11/2024 7:42 PM Comparison: CT abdomen/pelvis 04/19/2024 Contrast: IV 10 ml of Elucirem RESULT: URINARY BLADDER: There is an irregular nodular mass along the bladder dome, measuring at least 2.2 x 3.4 x 4.1 cm on series 15, image 15 and sagittal series 3, image 19, consistent with known urinary bladder urothelial neoplasm. This lesion exhibits early arterial enhancement with subsequent hypoenhancement and impedes diffusion (series 14, image 15). There are irregular frond-like components extending into the dome of the bladder lumen, full-thickness involvement of the bladder wall within this region, and probable extension into the superior perivesical fat (series 5, image 14). Full-thickness of lesion involvement is approximately 1.4 cm (coronal T2 series 5, image 14). There is a small bladder diverticulum along the left lateral margin of this lesion (series 5, image 11-10). In addition, there is a focus of cystic change measuring 0.8 cm (series 4, image 15) along the anterior bladder wall (series 4, image 15), suggestive of a urachal cyst. More diffuse bladder wall thickening is likely secondary to chronic outlet obstruction. ADDITIONAL FINDINGS: Coarse calcifications within the prostate are again noted. The prostate measures 5.1 x 4.8 x 3.3 cm (42 mL). No focal suspicious prostate lesion is identified (maximum PI-RADS category: 2). The rectum is unremarkable. No lymphadenopathy or pelvic fluid. No focal osseous abnormality. Degenerative changes involve the right hip. Packaging Clerk/Localizer: No additional findings. IMPRESSION: 1. Irregular mass along the bladder dome involving the full-thickness of the bladder wall with probable extension into the superior perivesical fat (at least stage T2, and likely T3 disease), consistent with known urinary bladder urothelial neoplasm. 2. No pelvic metastatic disease. 3. 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 4. More diffuse bladder wall thickening, suggestive chronic outlet obstruction. 5. Prostate volume is approximately 42 mL. Chemic Mangler: PSYCHIATRICB Transcribe Date/Time: Jul 12 2024 9:01A Dictated by : GLADYS JORDAN MD This examination was interpreted and the report reviewed and electronically signed by: GLADYS JORDAN MD on Jul 12 2024 9:23AM EST [id number]^AGFA_IDC^SI^ACNCCFRadiology, Radiologist, - 07/12/2024 * * *Final Report* * * DATE OF EXAM: Jul 11 2024 7:42PM [facility] 0737 - MRI PELVIS BLADDER WO/W IVCON / PROCEDURE REASON: bladder cancer * * * * Physician Interpretation * * * * EXAMINATION: MRI PELVIS BLADDER WO/W IVCON CLINICAL HISTORY: Muscle invasive urinary bladder urothelial carcinoma. Patient initially presented with hematuria with cystoscopy revealing a bladder mass and pathology confirming muscle invasive high-grade urothelial carcinoma (06/02/2024). History of chronic deep vein thrombosis, on Coumadin for over 30 years. Plan for cystoscopy with bladder biopsy early July. MRI of the pelvis performed for staging and preprocedural assessment. Technique: Multiplanar multiecho MRI pelvis performed before and following intravenous contrast administration. The following sequences were submitted for interpretation: Coronal T2 haste, sagittal T2, axial T2, coronal T2, axial diffusion-weighted imaging, axial ADC map, axial T1 pre and postcontrast, axial T1 postcontrast subtraction images, axial T1 postcontrast whole pelvis, 3 plane localizer. Exam Date: 07/11/2024 7:42 PM Comparison: CT abdomen/pelvis 04/19/2024 Contrast: IV 10 ml of Elucirem RESULT: URINARY BLADDER: There is an irregular nodular mass along the bladder dome, measuring at least 2.2 x 3.4 x 4.1 cm on series 15, image 15 and sagittal series 3, image 19, consistent with known urinary bladder urothelial neoplasm. This lesion exhibits early arterial enhancement with subsequent hypoenhancement and impedes diffusion (series 14, image 15). There are irregular frond-like components extending into the dome of the bladder lumen, full-thickness involvement of the bladder wall within this region, and probable extension into the superior perivesical fat (series 5, image 14). Full-thickness of lesion involvement is approximately 1.4 cm (coronal T2 series 5, image 14). There is a small bladder diverticulum along the left lateral margin of this lesion (series 5, image 11-10). In addition, there is a focus of cystic change measuring 0.8 cm (series 4, image 15) along the anterior bladder wall (series 4, image 15), suggestive of a urachal cyst. More diffuse bladder wall thickening is likely secondary to chronic outlet obstruction. ADDITIONAL FINDINGS: Coarse calcifications within the prostate are again noted. The prostate measures 5.1 x 4.8 x 3.3 cm (42 mL). No focal suspicious prostate lesion is identified (maximum PI-RADS category: 2). The rectum is unremarkable. No lymphadenopathy or pelvic fluid. No focal osseous abnormality. Degenerative changes involve the right hip. Packaging Clerk/Localizer: No additional findings. IMPRESSION: 1. Irregular mass along the bladder dome involving the full-thickness of the bladder wall with probable extension into the superior perivesical fat (at least stage T2, and likely T3 disease), consistent with known urinary bladder urothelial neoplasm. 2. No pelvic metastatic disease. 3. 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 4. More diffuse bladder wall thickening, suggestive chronic outlet obstruction. 5. Prostate volume is approximately 42 mL. Chemic Mangler: PSYCHIATRICB Transcribe Date/Time: Jul 12 2024 9:01A Dictated by : GLADYS JORDAN MD This examination was interpreted and the report reviewed and electronically signed by: GLADYS JORDAN MD on Jul 12 2024 9:23AM EST [id number]^AGFA_IDC^SI^ACN [facility] HealthcareMRI PELVIS BLADDER WO/W IVCONOrdered By: Radiologist Radiology on [id number] Healthcare Work Phone: bacteria Ur Culton 09-79-1071Vnwlurct identified Cx Nom (U)CULTURE, URINE: No growth (<1,000 CFU/ml)NormalUniversity Hospitals St. John Medical CenterComhenry ford [facility] on above: Performed By: #### 630-4 ####[facility] LABCLIA [id number] [address] STATES OF AMERICACBC panel Auto (Bld)on 60-17-0084Vnmiynrfwbz distribution width (RBC) [Ratio]13.0 %Normal 11.5-15.0[facility] on above:Order Comment: Specimen Type: BLOOD SPECIMENOrdering Facility: [facility] Address:[address] [place], [place] [address]Performed By: #### 26812-6, 41187-8 ####[facility] LABCLIA [id number] [address] STATES OF AMERICAHematocrit (Bld) [Volume fraction]45.1 %Normal 39.0-51.0[facility] on above:Order Comment: Specimen Type: BLOOD SPECIMENOrdering Facility: [facility] Address:[address] [place], [place] [address]Performed By: #### 12505-6, 76325-0 ####[facility] LABCLIA [id number] 53 MAY STREETHemoglobin (Bld) [Mass/Vol]14.7 g/dLNormal 13.0-17.0[facility] on above:Order Comment: Specimen Type: BLOOD SPECIMENOrdering Facility: [facility] Address:[address] [place], [place] [address]Performed By: #### 89643-3, 91339-1 ####[facility] LABCLIA [id number] [address] (RBC) [Entitic mass]28.7 fvPwqnnh19.0-34.0 [facility] on above:Order Comment: Specimen Type: BLOOD SPECIMENOrdering Facility: [facility] Address:[address] [place], [place] [address]Performed By: #### 79609-7, 97817-5 ####[facility] LABIA [id number] [address] STREETMCHC (RBC) [Mass/Vol]32.6 g/rGRyzvrw65.5-36.0[facility] on above:Order Comment: Specimen Type: BLOOD SPECIMENOrdering Facility: [facility] Address:[address] [place], [place] [address]Performed By: #### 78306-4, 31673-1 ####[facility] LABCLIA [id number] [place] [address] [facility] (RBC) [Entitic vol]88.1 eUGvwity31.0-100.0[facility] Comment on above:Order Comment: Specimen Type: BLOOD SPECIMENOrdering Facility: [facility] Address:[address] [place] [address] Performed By: #### 35067-9, 71048-7 ####[facility] LABCLIA [id number] [place] [address] [place] Nucleated RBC (Bld) [#/Vol]10*3/uLNormal<0.01[facility] St. John Medical CenterComment on above:Order Comment: Specimen Type: BLOOD SPECIMENOrdering Facility: [facility] Address:[address] [place] [address] Performed By: #### 64394-2, 54471-5 ####[facility] LABCLIA [id number] [place] [address] [place] Platelet mean volume (Bld) [Entitic vol]9.9 fLNormal9.0-12.7COhio State Health System on above:Order Comment: Specimen Type: BLOOD SPECIMENOrdering Facility: [facility] Address:[address] [place], [place] [address]Performed By: #### 39445-7, 34355-0 ####[facility] LABIA [id number] [place] [address] [place] AMERICAPlatelets (Bld) [#/Vol]210 10*3/zURqfomq744-342OnnjrofkbUniversity Hospitals St. John Medical Center Comment on above:Order Comment: Specimen Type: BLOOD SPECIMENOrdering Facility: [facility] Address:[address] [place] [address] Performed By: #### 96355-8, 15050-9 ####[facility] LABCLIA [id number] [place] [address] [place] RBC (Bld) [#/Vol]5.12 10*6/uLNormal4.20-6.00[facility] on above:Order Comment: Specimen Type: BLOOD SPECIMENOrdering Facility: [facility] Address:[address] [place], [place] [address]Performed By: #### 02253-6, 31337-9 ####[facility] LABCLIA [id number] [address]OW[address] AVENUEST. JOSEPH HOSPITALK [address] MARTIN STREETWBC (Bld) [#/Vol]9.97 10*3/uLNormal3.70-11.00[facility] on above:Order Comment: Specimen Type: BLOOD SPECIMENOrdering Facility: [facility] Address:[address] [place], [place] [address]Performed By: #### 84569- 3, 49876-3 ####[facility] LABCLIA [id number] [place]REETCCF APTT PPPon 44-05-4323CWW APTT PPP38.2HighGolden Valley Memorial HospitalCCF PT PNL PPPon 17-50-7386REN INR PPP3.5High0.9 - 1.3Golden Valley Memorial HospitalComment on above:Vitamin K Antagonist (VKA) Therapeutic Range: INR 2 to 3 (Target INR of 2.5) Note: For patients treated with VKA drugs, such as warfarin, the [place] [employer] 2012 Guideline recommends a therapeutic INR range of 2 to 3 (target INR of 2.5). This recommendation includes high-risk patients with antiphospholipid syndrome with previous arterial or venous thromboembolism, current-generation mechanical or bioprosthetic aortic heart valve replacement. Note: Patients with mechanical aortic valve replacement and additional risk factors for thromboembolic events (atrial fibrillation, previous thromboembolism, LV dysfunction, hypercoagulable conditions) or an older generation mechanical AVR (i.e., ball in-Cage) or any mechanical MVR should have a INR therapeutic range of 2.5 to 3.5 (target INR of 3). Ale FRAUSTO, et al. Chest 2012, 141:7S-47S Bill RA, et al. JACC 2017, 70: 252-289 [facility] PROTHROMBIN TIME34.5HighNOMS HealthcareCNOVSPon 01-41-8791TXHRYDDhzlsi [facility] John Medical CenterCNPNon 60-93-9406XGUCYvmerkBqipnbics [facility] [place] CONFIRM BLOOD TYPEon 31-86-2898CGUVHvueyzVnhtmrvujOhio State Health System on above:Order Comment: Specimen Type: BLOOD SPECIMENOrdering Facility: [facility] Address:[address] [place], [place] [address]Performed By: #### CONABO ####CC MAIN BLOOD BANKCLIA [id number] [place] [address] [place] AMERICARh Nom (Bld)PositiveNormal [facility] on above:Order Comment: Specimen Type: BLOOD SPECIMENOrdering Facility: [facility] Address:[address] [place], [place] [address]Performed By: #### CONABO ####CC MAIN BLOOD BANKCLIA [id number] [place] [address] [place] AMERICAComprehensive metabolic 2000 panelon 09-36-0084Yhqeeif [Mass/Vol]4.3 g/dL Normal3.9-4.9COhio State Health System on above:Order Comment: Specimen Type: BLOOD SPECIMENOrdering Facility: [facility] Address:[address] [place], [place] [address]Performed By: #### 90480-0 ####[facility] LABCLIA [id number] [place] [address] [place] AMERICAALP [Catalytic activity/Vol]93 U/ESrcocs30-342JvoknropqPremier Health on above:Order Comment: Specimen Type: BLOOD SPECIMENOrdering Facility: [facility] Address:[address] [place], [place] [address]Performed By: #### 83996-5 ####[facility] LABCLIA [id number] [address] [address] [place] AMERICAALT [Catalytic activity/Vol]23 U/NOuvjxb78-28XattzihbqUniversity Hospitals St. John Medical Center Comment on above:Order Comment: Specimen Type: BLOOD SPECIMENOrdering Facility: [facility] Address:[address] [place], [place] [address] Performed By: #### 54266-2 ####[facility] LABCLIA [id number] [address] [address] [place] Anion gap [Moles/Vol]11 mmol/LNormal8-15[facility] on above:Order Comment: Specimen Type: BLOOD SPECIMENOrdering Facility: [facility] Address:[address] [place], [place] [address]Performed By: #### 74041-5 ####[facility] LABCLIA [id number] [place] [address] [place] AMERICAAST [Catalytic activity/Vol]25 U/SUxnabh97-26KfaiuznzkPremier Health on above:Order Comment: Specimen Type: BLOOD SPECIMENOrdering Facility: [facility] Address:[address] [place], [place] [address]Performed By: #### 56234- 8 ####[facility] LABCLIA [id number] [place] [address] [place] AMERICABilirubin [Mass/Vol]0.3 mg/dL Normal0.2-1.3ClevelFairfield Medical Center on above:Order Comment: Specimen Type: BLOOD SPECIMENOrdering Facility: [facility] Address:[address] [place], [place] [address]Performed By: #### 50353-9 ####[facility] LABCLIA [id number] [facility] HOSPITALK [address] [place] [address] [place] AMERICACalcium [Mass/Vol]10.4 mg/dLHigh8.5-10.2ClevelFairfield Medical Center on above:Order Comment: Specimen Type: BLOOD SPECIMENOrdering Facility: [facility] Address:[address] [place], [place] [address]Performed By: #### 61804-5 ####[facility] LABCLIA [id number] [place] [address] [place] Chloride [Moles/Vol]105 mmol/MNosvjo85-790VlbmltuuvPremier Health on above:Order Comment: Specimen Type: BLOOD SPECIMENOrdering Facility: [facility] Address:[address] [place], [place] [address]Performed By: #### 46698-9 ####[facility] LABCLIA [id number] [place] [address] [place] AMERICACO2 [Moles/Vol]25 mmol/SUfplyp14-56TkasfhuybPremier Health on above:Order Comment: Specimen Type: BLOOD SPECIMENOrdering Facility: [facility] Address:[address] [place], [place] [address]Performed By: #### 67884-1 ####[facility] LABIA [id number] [place] [address] [place] AMERICACreatinine [Mass/Vol]1.00 mg/dL Normal0.73-1.22[facility] on above:Order Comment: Specimen Type: BLOOD SPECIMENOrdering Facility: [facility] Address:[address] [place], [place] [address]Performed By: #### 69582-5 ####[facility] LABIA [id number] [place] [address] [place] [facility] OF AMERICACreatinine and Glomerular filtration rate.predicted panel (S/P/Bld)79 mL/min/1.73m???Normal>=60[facility] on above:Order Comment: Specimen Type: BLOOD SPECIMENOrdering Facility: [facility] Address:[address] [place], [place] [address]Result Comment: Estimated Glomerular Filtration Rate (eGFR) is calculated using the 2020 CKD-EPI creatinine equation. This equation utilizes serum creatinine, sex, and age as parameters. The creatinine assay has traceable calibration to isotope dilution-mass spectrometry. Refer to KDIGO guidelines for clinical interpretation. In patients with unstable renal function, e.g. those with acute kidney injury, the eGFR may not accurately reflect actual GFR.Performed By: #### 71328-7 ####[facility] LABIA [id number] [place] [address] [place] AMERICAGlucose [Mass/Vol]89 mg/xBXhtjvv50-40RllrtzxszPremier Health on above:Order Comment: Specimen Type: BLOOD SPECIMENOrdering Facility: [facility] Address:[address] [place], [place] [address]Result Comment: The [place] [employer] Association (ADA) provides guidance for cutoff values for fasting glucose and random glucose. The ADA defines fasting as no caloric intake for at least 8 hours. Fasting plasma glucose results between 100 to 125 mg/dL indicate increased risk for diabetes (prediabetes).Fasting plasma glucose results greater than or equal to 126 mg/dL meet the criteria for diagno sis of diabetes. In the absence of unequivocal hyperglycemia, results should be confirmed by repeattesting. In a patient with classic symptoms of hyperglycemia or hyperglycemic crisis, random plasmaglucose results greater than or equal to 200 mg/dL meet the criteria for diagnosis of diabetes.Reference: Standards of Medical Care in Diabetes 2016, [place] [employer]. Diabetes Care. 2016.39(Suppl 1).Performed By: #### 91893-7 ####[facility]OSPITALIA [id number] [place] [address] [place] AMERICAPotassium [Moles/Vol]4.5 mmol/LNormal3.7-5.1CVeterans Health Administration Comment on above:Order Comment: Specimen Type: BLOOD SPECIMENOrdering Facility: [facility] Address:[address] [place] [address] Performed By: #### 52388-7 ####[facility] [id number] [place] [address] [place] Protein [Mass/Vol]7.2 g/dLNormal6.3-8.0[facility] on above:Order Comment: Specimen Type: BLOOD SPECIMENOrdering Facility: [facility] Address:[address] [place], [place] [address]Performed By: #### 68463-3 ####[facility] LABCLIA [id number] [address] [place] [address] [place] AMERICASodium [Moles/Vol]141 mmol/UCocjfv607-277TlifcbruaUniversity Hospitals St. John Medical CenterComment on above:Order Comment: Specimen Type: BLOOD SPECIMENOrdering Facility: [facility] Address:[address] [place], [place] [address]Performed By: #### 77641-8 ####[facility] LABIA [id number] [address] [address] [place] AMERICAUrea nitrogen [Mass/Vol]16 mg/dL Normal9-24[facility] St. John Medical CenterComment on above:Order Comment: Specimen Type: BLOOD SPECIMENOrdering Facility: [facility] Address:[address] [place], [place] [address]Performed By: #### 38637-4 ####[facility] [id number] [place] [address] [place] [facility] HOSPITALHISTORY PHYSICALon 73-82-5367XNXIKRP PHYSICALNormal [facility] John Medical CenterHbA1c (Bld)on 96-53-8982Qkuubvs glucose Estimated from glycated hemoglobin (Bld) [Mass/Vol]123 mg/dLNormalCVeterans Health Administration Comment on above:Order Comment: Specimen Type: BLOOD SPECIMENOrdering Facility: [facility] Address:[address] [place], [place] [address]Result Comment: eAG: (Estimated average glucose) is a calculated value from HgbA1c and is branch customer service representative of the average blood glucose level in the last 2-3 month period.Performed By: #### 09465-0, 66034-0 ####[facility] LABIA [id number] [place] [address] [place] QWUWLOVMjW9k (Bld) [Mass fraction]5.9 %High4.3-5.6CVeterans Health Administration Comment on above:Order Comment: Specimen Type: BLOOD SPECIMENOrdering Facility: [facility] Address:[address] [place], [place] [address]Result Comment: [place] [employer] guidelines indicate that patients with HgbA1c in the range 5.7-6.4% are at increased risk for development of diabetes, and intervention by lifestyle modification may be beneficial. HgbA1c greater or equal to 6.5% is considered diagnostic of diabetes.Performed By: #### 74866-5, 17339-5 ####[facility] LABCLIA [id number] [place] [address] [place] AMERICAMRI PELVIS BLADDER WO/W IVCONon 44-67-9283WAN PELVIS BLADDER WO/W IVCONNormalUniversity Hospitals St. [facility] Center Radiology Study observation (narrative)NOMS HealthcareNo Panel Informationon 31-30-8067Xvpktelaistxdf and review of laboratory resultsAbnormalNOOR Healthcare Specimen Type: BLOOD SPECIMEN [facility] Address: [address] [place] [address] Original Ordering Provider: MARTHA BOWEN [facility] HospitalPT [facility] Coag (PPP)on 30-73-3360SPY Coag (PPP) [Relative time]3.5 {INR}High0.9-1.[address] [facility] Medical CenterComhenry ford [facility] on above:Order Comment: Specimen Type: BLOOD SPECIMENOrdering Facility: [facility] Address:[address] [place], [place] [address]Result Comment: Vitamin K Antagonist (VKA) Therapeutic Range: INR 2 to 3 (Target INR of 2.5)Note: For patients treated with VKA drugs, such as warfarin, the [place] [employer] 2012 Guideline recommends a therapeutic INR range of 2 to 3 (target INR of 2.5). This recommendation inclu gina high-risk patients with antiphospholipid syndrome with previous arterial or venous thromboembolism, current-generation mechanical or bioprosthetic aortic heart valve replacement.Note: Patients with mechanical aortic valve replacement and additional risk factors for thromboembolic events (atrialfibrillation, previous thromboembolism, LV dysfunction, hypercoagulable conditions) or an older generation mechanical AVR (i.e., ball in-Cage) or any mechanical MVR should have a INR therapeutic range of 2.5 to 3.5 (target INR of 3).Ale FRAUSTO, et al. Chest 2012, 141:7S-47SNishimura RA, et al. [facility] 2017, 70: 252-289 Performed By: #### 22984-4, 44950-8 ####[facility] LABCLIA [id number] [address] [place] PT Coag (PPP) [Time]34.5 sHigh9.7-13.0[facility] on above:Order Comment: Specimen Type: BLOOD SPECIMENOrdering Facility: [facility] Address:[address] [place], [place] [address]Performed By: #### 46548-9, 84050-3 ####[facility] LABCLIA [id number] [address] ST[address]ETTYPE AND SCREEN,30 DAYon 53-60-0765RCYDJjzlgtDgdvqgoxtOhio State Health System on above:Order Comment: Specimen Type: BLOOD SPECIMENOrdering Facility: [facility] Address:[address] [place], [place] [address]Performed By: #### TSCR30 ####[facility] BLOOD BANKIA [id number] [place] [address] [place] AMERICARh Nom (Bld)PositiveNormalCOhio State Health System on above:Order Comment: Specimen Type: BLOOD SPECIMENOrdering Facility: [facility] Address:[address] [place], [place] [address]Performed By: #### TSCR30 ####[facility] BLOOD BANKIA [id number] [place] [id number] [place] STATES OF AMERICAUrinalysis complete panel (U)on 09-95-6754Qrtbwpmq LM.HPF (Urine sed) [#/Area]Negative NormalNegativePremier Health on above:Order Comment: Specimen Type: URINE SPECIMENOrdering Facility: [facility] Address:[address] [place], [place] [address]Performed By: #### 12315-4 ####[facility] LABCLIA [id number] [address] [place] [address] [place] AMERICABilirubin Ql (U)NegativeNormalNegativeUniversity Hospitals St. John Medical CenterComhenry ford [facility] hospital on above:Order Comment: Specimen Type: URINE SPECIMENOrdering Facility: [facility] Address:[address] [place], [place] [address]Performed By: #### 96390-9 ####[facility] LABCLIA [id number] [address] [place] [address] [place] CALCIUM OXALATE CRYSTALS (UA)FewAbnormalNone SeenUniversity Hospitals St. John Medical Center Comment on above:Order Comment: Specimen Type: URINE SPECIMENOrdering Facility: [facility] Address:[address] [place] [address] Performed By: #### 15956-3 ####[facility] LABCLIA [id number] [address] [place] [address] [place] Clarity (Unsp spec)CloudyAbnormalClearCOhio State Health System on above:Order Comment: Specimen Type: URINE SPECIMENOrdering Facility: [facility] Address:[address] [place], [place] [address]Performed By: #### 39131-0 ####[facility] LABCLIA [id number] [address] [place] [address] [place] AMERICAColor (U)YellowNormal YellowUniversity Hospitals St. John Medical CenterComhenry ford [facility] on above:Order Comment: Specimen Type: URINE SPECIMENOrdering Facility: [facility] Address:[address] [place], [place] [address]Performed By: #### 14139-9 ####[facility] LABCLIA [id number] [address] [place] [address] [place] AMERICAEpithelial cells LM.HPF (Urine sed) [#/Area]None SeenNormal [facility] on above:Order Comment: Specimen Type: URINE SPECIMENOrdering Facility: [facility] Address:[address] [place], [place] [address]Performed By: #### 48840-0 ####[facility] LABCLIA [id number] [address] [place] [address] [place] AMERICAGlucose Test strip (U) [Mass/Vol]NegativeNormalNegativePremier Health on above:Order Comment: Specimen Type: URINE SPECIMENOrdering Facility: [facility] Address:[address] [place], [place] [address]Performed By: #### 46588-6 ####[facility] LABCLIA [id number] [address], [place] [facility] [place] Hemoglobin Ql (U)1+AbnormalNegativePremier Health on above: Order Comment: Specimen Type: URINE SPECIMENOrdering Facility: [facility] Address:[address] [place], [place] [address]Performed By: #### 22589- 8 ####[facility] LABCLIA [id number] [place] [address] [place] AMERICAHyaline casts (Urine sed) [#/Area]0 /[LPF]Normal0 /LPFCOhio State Health System on above:Order Comment: Specimen Type: URINE SPECIMENOrdering Facility: [facility] Address:[address] [place], [place] [address]Performed By: #### 86739- 8 ####[facility] LABCLIA [id number] [place] [address] [place] AMERICAKetones Ql (U)NegativeNormal NegativePremier Health on above:Order Comment: Specimen Type: URINE SPECIMENOrdering Facility: [facility] Address:[address] [place], [place] [address]Performed By: #### 42092-7 ####[facility] LABCLIA [id number] [address], [facility]95 [place] AMERICALeukocyte esterase Test strip Ql (U)2+AbnormalNegative [facility] on above:Order Comment: Specimen Type: URINE SPECIMENOrdering Facility: [facility] Address:[address] [place], [place] [address]Performed By: #### 43776-8 ####[facility] LABIA [id number] [address], [facility]95 [place] AMERICANitrite Ql (U)NegativeNormalNegativePremier Health on above:Order Comment: Specimen Type: URINE SPECIMENOrdering Facility: [facility] Address:[address] [place], [place] [address]Performed By: #### 26289-0 ####[facility] LABIA [id number] [place] [address] [place] AMERICApH (U)6.0 [pH]Normal <8.5ClevelFairfield Medical Center on above:Order Comment: Specimen Type: URINE SPECIMENOrdering Facility: [facility] Address:[address] [place], [place] [address]Performed By: #### 78783-6 ####[facility] LABIA [id number] [place] [address] [place] [facility] HOSPITALProtein (U) [Mass/Vol]1+AbnormalNegativePremier Health on above:Order Comment: Specimen Type: URINE SPECIMENOrdering Facility: [facility] Address:[address] [place], [place] [address]Performed By: #### 39860-3 ####[facility] LABCLIA [id number] [place] [address] [place] RBC LM.HPF (Urine sed) [#/Area]3-5 /HPFAbnormal0-2 /HPFPremier Health on above:Order Comment: Specimen Type: URINE SPECIMENOrdering Facility: [facility] Address:[address] [place], [place] [address]Performed By: #### 00452-5 ####[facility] LABIA [id number] [place] [address] [place] Specific gravity (U) [Rel density]1.824Irlyrl5.005-1.030[facility] for Rehabilitationment on above:Order Comment: Specimen Type: URINE SPECIMENOrdering Facility: [facility] Address:[address] [place], [place] [address]Performed By: #### 17978-9 ####[facility] LABIA [id number] [place] [address] [place] Urobilinogen Ql (U)0.2 EU/dLNormal0.2-1.0 EU/dLPremier Health on above:Order Comment: Specimen Type: URINE SPECIMENOrdering Facility: [facility] Address:[address] [place] [address] Performed By: #### 19550-3 ####[facility] [id number] [place] [address] [place] WBC LM.HPF (Urine sed) [#/Area]/[HPF]Abnormal0-5 /HPFUniversity Hospitals St. John Medical Center Comment on above:Order Comment: Specimen Type: URINE SPECIMENOrdering Facility: [facility] Address:[address] [place] [address] Performed By: #### 99246-5 ####[facility] [id number] [place] [address] [place] aPTT PPPon 27-40-8959uXGO Coag (PPP) [Time]38.2 sHigh23.0-32.4COhio State Health System on above:Order Comment: Specimen Type: BLOOD SPECIMENOrdering Facility: [facility] Address:[address] [place], [place] [address]Performed By: #### 72075-2, 74888-9 ####[facility] LABIA [id number] [place] [address] [place] AMERICACNPNon 40-77-1729EYQHMtlfflXojwhrxco Clinic ClevelandNo Panel Informationon 16-86-9529Bkdnzmf obtained: written (The rationale for Mohs as well as the risks, benefits, and alternatives. The risks of infection, scarring, bleeding, prolonged wound healing, incomplete removal, allergy to anesthesia or meds, nerve injury, and recurrence were addressed.) [place] Protocol: Procedure explained and questions answered to patient or proxy's satisfaction: Yes Test results available and properly labeled: Yes Pathology report reviewed: Yes Photo or diagram used for site identification: Yes Site/side marked: Yes Anticoagulation: Is the patient taking prescription anticoagulant and/or aspirin prescribed/recommended by a physician? Yes (Coumadin) Was the anticoagulation regimen changed prior to Mohs? 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 MohsAIQ Surgical site (if tumor spans multiple areas, please select predominant area): ear Surgery side: left Surgical site (from skin exam): Left anti-tragus Pre-operative length (cm): 1.2 Pre-operative width (cm): 1.2 Indications for Mohs surgery: anatomic location where tissue conservation is critical Previously treated? No Mohs Appropriate Use Criteria Score: 8 Details of micrographic surgery: Mohs accession number: [id number] Micrographic Surgery Details: Post-operative length (cm): 1.5 Post-operative width (cm): 1.1 Number of Mohs stages: 1 Stage 1 Comments: The area was prepped [...] was marked accordingly. Amount of lidocaine used: 2.5 cc Estimated blood loss: <1.0 cc Defect size: 1.5 x 1.1 cm Number of blocks per stage: 1 Number of positive blocks: 0. Tumor free margins were obtained and the Mohs procedure was considered complete. Depth of tumor invasion after stage: cartilage Patient tolerance of procedure: tolerated well, no immediate complications Reconstruction: Was the defect reconstructed? Yes Was reconstruction performed by the same Mohs surgeon? No If no, what is the specialty of the surgeon who did the reconstruction? ENT facial plastics When was reconstruction performed? different day Antibiotics: Were antibiotics given on the day of surgery? Yes When were antibiotics given? 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 BPH with urinary obstruction Kidney stones ED (erectile dysfunction) Your Care Team Attending Physician - Micaela IRELAND MD Primary Care Physician - DAYRON CERVANTES MD This Is Your Medications List Contact prescribing physician if questions or concerns cholecalciferol (Vitamin D3) glucosamine lisinopril (lisinopril 10 mg Tab) metoprolol (Metoprolol tartrate 50 mg Tab) omega-3 polyunsaturated fatty acids (Fish Oil) simvastatin terazosin ubiquinone (Coenzyme Q10) warfarin (warfarin 5 mg Tab) Procedures Performed TURBT - Transurethral resection of bladder tumor (06/02/2024), Cystoscopy (05/16/2024), Biopsy of lesion of skin, Colonoscopy, Plastic surgery. Discharge Vitals Temperature (Temporal Artery) 37 ???C Heart Rate (Peripheral) 75 Respiratory Rate 18 Blood Pressure 130/74 Height 175 cm Height 69 in Weight 98.1 kg Weight 216.273 lb BMI 32.03 What to do next You Need to Schedule the Following Appointments Follow Up with BEKA CROCKETT, Micaela Carpenter, MADI When: Where: [facility] [address], [facility] [place] [address] [phone] Someone Will Contact You Regarding These Appointments [facility] External Ambulatory Referral, Other (needs to be filled in), Other Referral, Referral to [facility] to discuss treatment options for bladder cancer, 06/20/24 10:11:00 EDT, 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 Medications What How Much When Instructions Unchanged cholecalciferol (Vitamin D3) 10 Microgram By Mouth Every day Contact prescribing physician if questions or concerns Unchanged glucosamine 500 Milligram By Mouth 2 times a day Contact prescribing physician if questions or concerns Unchanged lisinopril (lisinopril 10 mg Tab) 1 Tablets By Mouth Every day Contact prescribing physician if questions or concerns Unchanged metoprolol (Metoprolol tartrate 50 mg Tab) 1 Tablets By Mouth 2 times a day Contact prescribing physician if questions or concerns Unchanged omega-3 polyunsaturated fatty acids (Fish Oil) 500 Milligram By Mouth Every day Contact prescribing physician if questions or concerns Unchanged simvastatin 20 Milligram By Mouth Once a day (in the evening) Contact prescribing physician if questions or concerns Unchanged terazosin 10 Milligram By Mouth Every day Contact prescribing physician if questions or concerns Unchanged ubiquinone (Coenzyme Q10) 30 Milligram By Mouth 3 times a day Contact prescribing physician if questions or concerns Unchanged warfarin (warfarin 5 mg Tab) 1 Tablets By Mouth Every day Contact prescribing physician if questions or concerns Allergies No Known Allergies Problems Ongoing - Any problem that you are currently receiving treatment for. 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 Please share your experience with us by completing your survey. We appreciate your feedback and thank you for choosing us for your care. Education Materials Bladder Cancer Bladder cancer is a condition where abnormal tissue (a tumor) grows in the bladder. The bladder is the organ that holds urine. Two tubes (ureters) carry urine from the kidneys to the bladder. The bladder wall is made of layers of tissue. Cancer that spreads through these layers of the bladder wall becomes more difficult to treat. What increases the risk? The following factors may make you more likely to develop this condition: ??? Smoking. ??? Working where there are risks (occupational exposures), such as working with rubber, leather, clothing fabric, dyes, chemicals, or paint. ??? Being 55 years of age or older. ??? Being male. ??? Having long-term bladder inflammation. ??? Having a history of cancer. This includes: ? A family history of bladder cancer. ? Having had bladder cancer before. ? Having had certain treatments for cancer before, such as: ? Medicines to kill cancer cells (chemotherapy). ? Strong X-ray beams or high-energy capsules to kill cancer cells and shrink tumors (radiation therapy). ??? Having been exposed to arsenic. This is a poisonous substance. What are the signs or symptoms? Early symptoms of this condition include: ??? Blood in your urine. ??? Pain when urinating. ??? Infections of your urinary system (urinary tract infections or UTIs) that happen often. ??? Having to urinate sooner or more often than normal. Late symptoms of this condition include: ??? Not being able to urina (more content not included)...NormalAkron Children'S HospitalUrology Office/Clinic Noteon [id number] Office/Clinic NoteUrology Office/Clinic Note Chief Complaint PO TURBT review pathology HPI Staff PO TURBT 06/02/24, here to review path report. Last seen IO 04/11/24, dx: gross hematuria, nocturia, kidney stones, ED. *No urologic meds CTU 04/19/24 [facility] - bladder contour regularity/filling defect along the dome of the bladder concerning for urothelial neoplasm. S/p Cysto 05/16/24. Pt states he has been having stinging and burning in his urethra when he voids since the catheter was removed. Denies any visible blood. No abdominal/flank pain No urinary leakage. History of Present Illness Tests reviewed: reviewed UA, operative note, path report I have reviewed the previous health record information and history for this patient from Dr. Ireland. I have reviewed and verified the staff [...] HPI. Physical Exam Vitals & Measurements T: 37 ???C(Temporal Artery) HR: 75(Peripheral) RR: 18 BP: 130/74 HT: 175 cm HT: 69 in WT: 98.1 kg WT: 216.273 lb BMI: 32.03 General Appearance: alert, no distress, well nourished, well developed male. Assessment/Plan 1. 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 S/p Cysto 05/16/24 - Multiple papillary TCC tumors along floor and back wall towards L side. At least 4 cm of tumors. Positive FISH, atypical/suspicious Cytology. TURBT 06/02/24 - High-grade, muscle invasive papillar urothelial carcinoma. Nested variant invasivetumor, diffusely present in lamina propria. Positive lymph invasion. I had a long session of counseling with the patient today. The pathology report reveals the presence of bladder cancer. Discussed the risks of recurrence and progression to higher stage or metastases. Explained he has high grade and muscle invasive cancer and will definitely require treatment. Discussed treatment options in detail including cystectomy, radiation, and chemotherapy. Also discussed referral to [facility]. -Referral to [facility] to discuss treatment options 2. BPH with urinary obstruction (N40.1: Benign prostatic hyperplasia with lower urinary tract symptoms) S/p Cysto 05/16/24 - Obstructing prostate in trilobar fashion. TURBT 06/02/24. Catheter removed IO 06/09/24. Shares he has had pain/burning with urination since. Feels this has been improving some. IPSS 6. UA today shows moderate blood and small leuks. Discussedthis is expected PO and with healing. Recommended increased fluid intake. Shares he has had decreased nocturia. Discussed this is likely related to removal of bladder tumors. -Increase fluid intake 3. Kidney stones (N20.0: Calculus of kidney) Reports hx of kidney stones. Had lithotripsy in the distant past. Has not had any recent imaging done. [1] 4. ED (erectile dysfunction) (N52.9: Male erectile dysfunction, unspecified) ILDA 1. Reports difficulty achieving an erection over the last few years. Able to ejaculate. Not a priority at this time. [2] Follow-up With When Contact Information BEKA CROCKETT, Micaela Carpenter, URL [facility] [address] [place] [address] [phone] Additional Instructions: referral to [facility] Patient Education Bladder Cancer IBrittni, personally scribed for Dr. Ireland on 06/20/2024 10:15:23. . Documentation recorded by the scribe, Brittni Murray, accurately reflects the services(s) I performed and decisions made by me. Authenticated by Dr. Ireland on 06/20/2024 10:18:23. 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 Medications Coenzyme Q10, 30 mg, Oral, TID Fish Oil, 500 mg, Oral, Daily glucosamine, 500 mg, Oral, BID lisinopril 10 mg Tab, 10 mg= 1 tab(s), Oral, Daily Metoprolol tartrate 50 mg Tab, 50 mg= 1 tab(s), Oral, BID simvastatin, 20 mg, Oral, qPM terazosin, 10 mg, Oral, Daily Vitamin D3, (more content not included)...[facility] Comment on above:Result Comment: Electronically Signed By: Micaela IRELAND MD\.br\Date and Time Signed: 06/20/24 10:18 EDT\.br\Electronically Co-Signed By: Brittni Murray\.br\Date and Time Co-Signed: 06/20/24 10:15 EDTAmbulatory Visit Summaryon [id number] Visit SummaryAmbulatory Visit Summary BILL ALLEN :1950 Visit Date:06/09/2024 Ambulatory Visit Instructions Your Care Team Attending Physician - Micaela IRELAND MD Primary Care Physician - DAYRON CERVANTES MD This Is Your Medications List cholecalciferol (Vitamin D3) ciprofloxacin (Cipro 500 mg Tab) glucosamine lisinopril (lisinopril 10 mg Tab) metoprolol (Metoprolol tartrate 50 mg Tab) omega-3 polyunsaturated fatty acids (Fish Oil) simvastatin terazosin ubiquinone (Coenzyme Q10) warfarin (warfarin 5 mg Tab) Procedures Performed Cystoscopy (05/16/2024), Biopsy of lesion of skin, Colonoscopy, Plastic surgery. What to do next Scheduled Follow-Up Appointments Thursday 9:30 AM EDT With: Micaela IRELAND MD Where: [facility] [place] [address]- Medications What How Much When Instructions Unchanged cholecalciferol (Vitamin D3) 10 Microgram By Mouth Every day Unchanged ciprofloxacin (Cipro 500 mg Tab) See instructions 1 tab po night prior to cysto. 1 tab pofollowing cysto. Unchanged glucosamine 500 Milligram By Mouth 2 times a day Unchanged lisinopril (lisinopril 10 mg Tab) 1 Tablets By Mouth Every day Unchanged metoprolol (Metoprolol tartrate 50 mg Tab) 1 Tablets By Mouth 2 times a day Unchanged omega-3 polyunsaturated fatty acids (Fish Oil) 500 Milligram By Mouth Every day Unchanged simvastatin 20 Milligram By Mouth Once a day (in the evening) Unchanged terazosin 10 Milligram By Mouth Every day Unchanged ubiquinone (Coenzyme Q10) 30 Milligram By Mouth 3 times a day Unchanged warfarin (warfarin 5 mg Tab) 1 Tablets By Mouth Every day Allergies No Known Allergies Problems Ongoing - Any problem that you are currently receiving treatment for. DVT (deep venous thrombosis) ED (erectile dysfunction) Gross hematuria Hyperlipidemia Hypertension Kidney stones Nocturia Skin cancer Patient Survey You may receive a survey via text or e-mail asking about your office visit. Please share your experience with us by completing your survey. We appreciate your feedback and thank you for choosing us for your care. [facility] 06-02-2024 Specimen: [id number] Received: 06/03/24 Status: DEDRICKPuma Dotty Num: [id number] Spec Type: Surgical Subm Dr: Micaela Ireland MD Tissues: A Urinary Bladder - TUR (BLADDER TUMORS) Procedures: HE/2, Gross/Micro L5 Age/ Patient Sex Location Account Attending Physician Bill Allen 73/M [place] [id number] Micaela Ireland MD SPEC NUM: [id number] RECD: 06/03/24 STATUS: MIGUEL REVicky NUM: [id number] GOLDEN: 06/02/[address] [facility] [address]: Micaela Ireland MD ENTERED: 06/03/[address]: Pernell Hendrickson SPEC TYPE: Surgical DEPT: MARGARITA DENNEY ORDERED: HE/2, Gross/Micro L5 ORDERED: HE/2, Gross/Micro L5 Pathological Diagnosis Urinary bladder tumors, TURBT: -Muscle invasive high-grade papillary urothelial carcinoma (pT2) -Nested variant invasive tumor, diffusely present in lamina propria of 4 large fragments -Positive for lymphovascular invasion (at least 1 vessel) -Muscularis propria in at least 10 fragments with invasion of muscularis propria muscle in at least 2 fragments -Severe urothelial dysplasia in 5 fragments with less papillary proliferation, otherwise also showing focal urothelial carcinoma in situ (CIS) Clinical Information Bladder tumor lesions, hematuria, kidney stones Gross Description Part A is received in formalin labeled with the patients name, date of , and bladder tumors are 1.3 g of martinez-randolph to pink, rubbery tissue chips, 3.5 x 2.3 x 0.3 cm in aggregate. The specimen is filtered and entirely submitted in A1?A2. (2, ns, [id number]) SMITH Specimen: [id number] Received: 06/03/24 Status: MIGUEL Miller Num: [id number] Spec Type: Surgical Subm Dr: Micaela Ireland MD Tissues: A Urinary Bladder - TUR (BLADDER TUMORS) Procedures: HE/2, Gross/Micro L5 Patient: Bill Allen [id number] (Continued) Specimen: [id number] Received: 06/03/24 (Continued) Signed (signature on file) Linh Martin MD 06/06/242038 Specimen: [id number] Received: 06/03/24 Status: MIGUEL Miller Num: [id number] Spec Type: Surgical Subm Dr: Micaela Ireland MD Tissues: A Urinary Bladder - TUR (BLADDER TUMORS) Procedures: HE/2, Gross/Micro L5 Patient: Bill Allen [id number] (Continued) Specimen: [id number] Received: 06/03/24 (Continued) Microscopic Description Microscopic examination is performed CPT Codes 82329 Specimen: [id number] Received: 06/03/24-1306 Status: MIGUEL Miller Num: [id number] Spec Type: Surgical Subm Dr: Micaela Ireland MD Tissues: A Urinary Bladder - TUR (BLADDER TUMORS) Procedures: HE/2, Gross/Micro L5 Patient: Bill Allen [id number] (Continued) Signed (signature on file) Linh Martin MD 06/06/242038[facility] Physician GroupALL CBC WITH AUTO DIFFon 05-24-2024 BASOPHILS ABSOLUTE AUTO0.1NOMS HealthcareBasophils/100 WBC (Bld)0.4 %0.2 - 2.0 % NOMS HealthcareEosinophils/100 WBC (Bld)1.4 %0.9 - 7.0 %[facility] Erythrocyte distribution width (RBC) [Ratio]12.6 %11.0 - 15.0 %[facility] Hematocrit (Bld) [Volume fraction]45.4 %42.0 - 54.0 %[facility]OMS HealthcareHemoglobin (Bld) [Mass/Vol]15 g/dL14.0 - 18.0 g/dLNOMS HealthcareIMMATURE GRANULOCYTES ABS AUTO0.04HighNOMS HealthcareImmature granulocytes/100 WBC (Bld)0.3 %0.0 - 0.5 % N[facility]S HealthcareInterpretation and review of laboratory resultsAbnormalNOOR HealthcareLYMPHOCYTES ABSOLUTE AUTO2.3NOMS HealthcareLymphocytes/100 WBC (Bld) 19.6 %Low20.5 - 60.0 %[facility] CenterH (RBC) [Entitic mass]29.6 pg25.9 - 34.0 pgMissouri Rehabilitation CenterHC (RBC) [Mass/Vol]33 g/dL29.9 - 35.2 g/dLMissouri Rehabilitation CenterV (RBC) [Entitic vol]89.7 fL80.0 - 94.0 fLGolden Valley Memorial HospitalMONOCYTES ABSOLUTE AUTO 0.9HighLAYTON HOSPITAL HealthcareMonocytes/100 WBC (Bld)7.9 %1.7 - 12.0 %[facility] NEUTROPHILS ABSOLUTE AUTO8.2HighGolden Valley Memorial HospitalNeutrophils/100 WBC (Bld)70.4 % 43.0 - 75.0 %[facility] HospitalPlatelet mean volume (Bld) [Entitic vol]9.2 fLLow9.5 - 13.5 fLGolden Valley Memorial HospitalTBH EO #0.2NOMS HealthcareTBH [id number] Behavioral HealthTB RBC5.06NOCrittenton Behavioral HealthTB WBC11.7HighGolden Valley Memorial HospitalCLINISYNCNCIMARRON MEMORIAL [facility] Healthcare Pathology study report documentOrdered By: Linh Martin on 05-22-2024 [facility] Other lon 05-18-2024L Specimen: [id number] Received: 05/19/24 Status: MIGUEL Miller Num: [id number] Spec Type: Surgical Subm Dr: Dat [place],DO Tissues: A Debridement-Skin/Other Than Skin (LEFT GNOSTICISM WOUND) Procedures: HE, Gross/Micro L3 Age/ Patient Sex Location Account Attending Physician Bill Allen 73/M [place] [id number] Dat FranceDO SPEC NUM: [id number] RECD: 05/19/24 STATUS: MIGUEL MILLER NUM: [id number] GOLDEN: 05/18/[address] [facility] [address]: Dat [place] DO ENTERED: 05/19/[address] [facility] [address]: ARLET TYPE: Surgical DEPT: S ENTERED BY: [id number] RECV BY: [id number] ORDERED: HE, Gross/Micro L3 ORDERED: HE, Gross/Micro L3 Pathological Diagnosis Skin, left mormon, excision: -Severe nonhealing chronic open wound with patchy fibrinoid exudates covering denuded skin surface, and mild deep collagenous fibrosis, with occasionally displaced and/or disrupted and damaged nests of hair follicle epithelium, at the dermal subcutaneous junction Clinical Information Left mormon wound Gross Description Part A is received in formalin labeled with the patients name, date of , and wound debridement skin BX L mormon are 2 martinez-randolph, wrinkled, crescent wedges of [...] reveal martinez-randolph, dull, and uniform cut surfaces. Sheet Writer sections are submitted in a single cassette. (, , [id number] A) JG Specimen: [id number] Received: 05/19/24 Status: MIGUEL Dotty Num: [id number] Spec Type: Surgical Subm Dr: Dat [place], Tissues: A Debridement-Skin/Other Than Skin (LEFT GNOSTICISM WOUND) Procedures: Shiv DISLA/Ehsan Burt Patient: Bill Allen [id number] (Continued) Specimen: [id number] Received: 05/19/24 (Continued) Signed (signature on file) Linh Martin MD 05/22/24 1146 Specimen: [id number] Received: 05/19/24 Status: MIGUEL Dotty Num: [id number] Spec Type: Surgical Subm Dr: Dat [place] DO Tissues: A Debridement-Skin/Other Than Skin (LEFT GNOSTICISM WOUND) Procedures: Shiv DISLA/Ehsan L3 Patient: Bill Allen [id number] (Continued) Specimen: [id number] Received: 05/19/24 (Continued) Microscopic Description Microscopic examinations are performed supporting the above interpretation CPT Codes 07551 Specimen: [id number] Received: 05/19/24 Status: MIGUEL Miller Num: [id number] Spec Type: Surgical Subm Dr: Dat [place] DO Tissues: A Debridement-Skin/Other Than Skin (LEFT GNOSTICISM WOUND) Procedures: Shiv DISLA/Ehsan L3 Patient: Bill Allen [id number] (Continued) Signed (signature on file) Aaron-Joshua Martin MD 05/22/[address] [place] [address] Physician GroupBasic Metabolic Panelon 13-87-6267Mkqoe gap [Moles/Vol]10.4 mmol/LNormal6.0-15.0The [facility] Physician GroupComment on above:Performed By: #### BMP #### [place] [address] USACalcium [Mass/Vol]9.9 mg/dLNormal8.6-10.3The [facility] Physician GroupComment on above:Result Comment: PERFORMED BY: [place] [address] PATHOLOGIST [employer] MELISSA AMBROCIO M.D.Performed By: #### BMP #### [place] [address] USAChloride [Moles/Vol]108 mmol/QPars92-709Bwd [facility] Physician GroupComment on above:Performed By: #### BMP #### [place] [address] USACO2 [Moles/Vol]25.9 mmol/AKiuprg36.0-31.0The [facility] Physician GroupComment on above:Performed By: #### BMP #### [place] [address] USACreatinine [Mass/Vol]1.14 mg/dLNormal0.70-1.30The [facility] Physician GroupComment on above:Performed By: #### BMP #### [place] [address] USAGFR/1.73 sq M.predicted MDRD (S/P/Bld) [Vol rate/Area] mL/min/{1.73_m2}NormalThe [facility] Physician GroupComment on above:Performed By: #### BMP #### [place] [address] USAGlucose [Mass/Vol]125 mg/kAXnfw07-695Mqj [facility] Physician GroupComment on above:Result Comment: Random Glucose Reference Range is dependent on time and content of last meal. Glucose of more than 200 mg/dL in a nonstressed, ambulatory subject supports the diagnosis of Diabetes Mellitus. ADA recommended reference rangePerformed By: #### BMP #### [place] [address] USAPotassium [Moles/Vol]4.3 mmol/LNormal3.5-5.1The [facility] Physician GroupComment on above:Performed By: #### BMP #### [facility] [address] [place] [address] USASodium [Moles/Vol]140 mmol/ERoiats958-192Ysv [facility] Physician GroupComment on above:Performed By: #### BMP #### [facility] [address] [place] [id number] USAUrea nitrogen [Mass/Vol]20 mg/dLNormal7-25The [facility] Physician GroupComment on above:Performed By: #### BMP #### [facility] [address] [place] [address] USABasic metabolic 1998 panelon 40-42-5850Ozowt gap [Moles/Vol]10.4 mmol/L6.0 - 15.0 meq/LNOMS HealthcareCalcium [Mass/Vol]9.9 mg/dL 8.6 - 10.3 mg/dLNOMS HealthcareChloride [Moles/Vol]108 mmol/LHigh98 - 107 mmol/L N[facility] HealthcareCO2 [Moles/Vol]25.9 mmol/L21.0 - 31.0 mmol/LNOMS Healthcare Creatinine (U) [Mass/Vol]1.14 mg/dL0.70 - 1.30 mg/dLNOOR HealthcareESTIMATED GFR mL/MinNOMS HealthcareGlucose [Mass/Vol]125 mg/iMLfhz94 - 100 mg/dLNOOR HealthcareComment on above:Random Glucose Reference Range is dependent on time and content of last meal. Glucose of more than 200 mg/dL in a nonstressed, ambulatory subject supports the diagnosis of Diabetes Mellitus. ADA recommended reference range Interpretation and review of laboratory resultsAbnormalNOMS HealthcarePotassium [Moles/Vol]4.3 mmol/L3.5 - 5.1 mmol/LNOMS HealthcareSodium [Moles/Vol]140 mmol/L 136 - 145 mmol/LNOMS HealthcareUrea nitrogen [Mass/Vol]20 mg/dL7 - 25 mg/dLNOCrittenton Behavioral HealthNOOR HealthcareBasophils Auto (Bld) [#/Vol]Ordered By: Dat France on 08-96-0527Oqqmbjqkv (Bld) [#/Vol]Automated basophil count0.0-0.2FCincinnati Shriners HospitalBasophils/100 WBC Auto (Bld)Ordered By: Dat [place] on 54-41-9807Rjozyygaw/100 WBC (Bld)Automated basophil %.[facility]utheran HospitalCBC W Auto Differential panel (Bld)on 91-68-4996Fciabstpz (Bld) [#/Vol]0.1 10*3/uL0.0 - 0.2 10*3/uLNOMS HealthcareBasophils/100 WBC Manual cnt (Syn fld)0.7 %.[facility] HospitalEosinophils (Bld) [#/Vol]0.2 10*3/uL0.0 - 0.45 10*3/uLNOMS HealthcareEosinophils/100 WBC Manual cnt (Syn fld)2 %.[facility] HospitalErythrocyte distribution width (RBC) [Ratio]13.5 %12.0 - 14.8 %[facility] HospitalHematocrit (Bld) [Volume fraction]43.5 %38.8 - 50.0 %[facility] Hemoglobin (Bld) [Mass/Vol]14.9 g/dL13.0 - 17.0 g/dLGolden Valley Memorial Hospital Interpretation and review of laboratory resultsAbnormalGolden Valley Memorial Hospital Lymphocytes (Bld) [#/Vol]2 10*3/uL1.00 - 4.8 10*3/uLNOOR Healthcare Lymphocytes/100 WBC Manual cnt (Syn fld)19.9 %.[facility] CenterH (RBC) [Entitic mass]29.6 pg27.5 - 35.2 pgMissouri Rehabilitation CenterHC (RBC) [Mass/Vol]34.4 g/dL32.5 - 35.6 g/dLMissouri Rehabilitation CenterV (RBC) [Entitic vol]86.2 fL83.5 - 101 fLGolden Valley Memorial HospitalMonocytes (Bld) [#/Vol]0.9 10*3/uLHigh0.0 - 0.8 10*3/uLNOOR Healthcare Monocytes+Macrophages/100 WBC Manual cnt (Syn fld)8.6 %.[facility] Neutrophils (Bld) [#/Vol]7 10*3/uL1.8 - 7.7 10*3/uLNOMS Healthcare Neutrophils/100 WBC Manual cnt (Syn fld)68.8 %.NOMS HealthcareNRBC0 /100{WBC}0 - 0.5 /100{WBC}NOMS HealthcarePlatelet mean volume (Bld) [Entitic vol]7.5 fL6.6 - 10.1 fLNOMS HealthcarePlatelets (Bld) [#/Vol]197 10*3/uL150 - 450 10*3/uLNOMS HealthcareRBC LM.HPF (Urine sed) [#/Area]5.05 10*6/uL3.90 - 5.60 10*6/uLNOMS HealthcareWBC (Bld) [#/Vol]10.2 10*3/uL4.1 - 10.5 10*3/uLNOMS HealthcareWBC LM.HPF (Urine sed) [#/Area]10.2 10*3/uL4.1 - 10.5 10*3/uLNOMS HealthcareNOMS HealthcareCalcium [Mass/volume] in Serum or PlasmaOrdered By: Dat [place] on 46-56-6909Omzbuqb [Mass/Vol]Calcium [Mass/volume] in Serum or Plasma8.6-10.3 [facility] HospitalCarbon dioxide, total [Moles/volume] in Serum or PlasmaOrdered By: Dat [place] on 51-01-3816US8 [Moles/Vol]Carbon dioxide, total [Moles/volume] in Serum or Biixua00.0-31.0Lutheran HospitalChloride [Moles/volume] in Serum or PlasmaOrdered By: Dat [place] on 75-99-3309Nvgtvdkd [Moles/Vol]Chloride [Moles/volume] in Serum or PlasmaHigh 98-107Lutheran HospitalComplete Blood Count Auto Diffon 88-41-4671Tngbtvfdu (Bld) [#/Vol]0.1 10*3/uLNormal0.0-0.2The [facility] Physician GroupComment on above:Result Comment: PERFORMED BY: [address] [place] [address] PATHOLOGIST [employer] MELISSA AMBROCIO M.D.Performed By: #### CBC #### [address] [place] [address] USABasophils/100 WBC (Bld)0.7 %Normal.The [facility] Physician GroupComment on above:Performed By: #### CBC #### [place] [address] USAEosinophils (Bld) [#/Vol]0.2 10*3/uLNormal0.0-0.45The [facility] Physician GroupComment on above:Performed By: #### CBC #### [place] [address] USAEosinophils/100 WBC (Bld)2.0 %Normal.The [facility] Physician GroupComment on above:Performed By: #### CBC #### [place] [address] USAErythrocyte distribution width (RBC) [Ratio]13.5 %Normal 12.0-14.8The [facility] Physician GroupComment on above:Performed By: #### CBC #### [place] [address] USAHematocrit (Bld) [Volume fraction]43.5 %Uyvbzm04.8-50.0The [facility] Physician GroupComment on above:Performed By: #### CBC #### [place] [address] USAHemoglobin (Bld) [Mass/Vol]14.9 g/fIVlyval31.0-17.0The [facility] Physician GroupComment on above:Performed By: #### CBC #### [place] [address] USALymphocytes (Bld) [#/Vol]2.0 10*3/uLNormal1.00-4.8The [facility] Physician GroupComment on above:Performed By: #### CBC #### [place] [address] USALymphocytes/100 WBC (Bld)19.9 %Normal.The [facility] Physician GroupComment on above:Performed By: #### CBC #### [address] [place] [address] USAMCH (RBC) [Entitic mass]29.6 pxVyfsrv47.5-35.2The [facility] Physician GroupComment on above:Performed By: #### CBC #### [place] [address] USAMCV (RBC) [Entitic vol]86.2 xVAdnepf87.5-101The [facility] Physician GroupComment on above:Performed By: #### CBC #### [place] [address] USAMean Corpuscular HGB Conc34.4 g/pKFhhmxy64.5-35.6The [facility] Physician GroupComment on above:Performed By: #### CBC #### [place] [address] USAMonocytes (Bld) [#/Vol]0.9 10*3/uLHigh0.0-0.8The [facility] Physician GroupComment on above:Performed By: #### CBC #### [place] [address] USAMonocytes/100 WBC (Bld)8.6 %Normal.The [facility] Physician GroupComment on above:Performed By: #### CBC #### [place] [address] USANeutrophils (Bld) [#/Vol]7.0 10*3/uLNormal1.8-7.7The [facility] Physician GroupComment on above:Performed By: #### CBC #### [place] [address] USANeutrophils/100 WBC (Bld)68.8 %Normal.The [facility] Physician GroupComment on above:Performed By: #### CBC #### [place] [address] USANRBC%0.0 /100{WBC}Normal0-0.5The [facility] Comment on above:Performed By: #### CBC #### [facility] [address] [place] [address] USAPlatelet mean volume (Bld) [Entitic vol]7.5 fLNormal 6.6-10.1The [facility] Physician GroupComment on above:Performed By: #### CBC #### [facility] [address] [place] [address] USAPlatelets (Bld) [#/Vol]197 10*3/gWDtqcxg808-057Thr [facility] Physician GroupComment on above:Performed By: #### CBC #### [facility] [address] [place] [address] USARBC (Bld) [#/Vol]5.05 10*6/uLNormal3.90-5.60The [facility] Physician GroupComment on above:Performed By: #### CBC #### [place] [address] USAWBC (Bld) [#/Vol]10.2 10*3/uLNormal4.1-10.5The [facility] Physician GroupComment on above:Performed By: #### CBC #### [place] [address] USACreatinine [Mass/volume] in Serum or PlasmaOrdered By: Dat France on 03-70-3733Keresfzaif [Mass/Vol]Creatinine [Mass/volume] in Serum or Plasma0.70-1.30Lutheran HospitalECG 12 lead ECGon 57-61-5060HBU 12 lead ECGCLEVELAND [facility] [place] [address] [place] [address] Electrocardiograph Report Signed Patient: Bill Allen MR#: [id number] 36 : 1950 Acct:[id number] Age/Sex: 73 / M ADM Date: 05/13/24 Loc: Room: Type: [facility] Attending Dr: Dat France DO Ordering Provider: Dat France DO Date of Service: 05/13/24 ECG/ECG [...] previous ECGs available Confirmed by Jimmy Becerril ([id number]) on 05/13/2024 4:41:31 PM Referred By: Electronically Signed By: Jimmy Becerril Transcribed By: MUS Signed By Jimmy Becerril MD 05/13/24 1641[facility] Physician GroupEosinophils Auto (Bld) [#/Vol] Ordered By: Dat Fracne on 81-96-9629Uslnmevbwhl (Bld) [#/Vol]Automated eosinophil count0.0-0.45Lutheran HospitalEosinophils/100 WBC Auto (Bld)Ordered By: Dat [place] on 11-51-2539Wnuibswglet/100 WBC (Bld) Automated eosinophil %.Lutheran HospitalErythrocyte distribution width Auto (RBC) [Ratio]Ordered By: Dat [place] on 29-49-7830Lbrjjhgrmbj distribution width (RBC) [Ratio]Erythrocyte distribution width [Ratio] by Automated count12.0-14.8Lutheran HospitalGlucose [Mass/volume] in Serum or PlasmaOrdered By: Dat [place] on 77-74-3316Uezthfk [Mass/Vol] Glucose [Mass/volume] in Serum or IjutlqAsos93-486OfyxttcynLutheran HospitalComment on above:ADA recommended reference rangeRandom Glucose Reference Range is dependent on time and content of last meal. Glucose of more than 200 mg/dL in a nonstressed, ambulatory subject supports the diagnosisof Diabetes Mellitus.Hematocrit Auto (Bld) [Volume fraction]Ordered By: Dat [place] on 82-64-6406Abkgitnbas (Bld) [Volume fraction]Hematocrit [Volume Fraction] of Blood by Automated count38.8-50.0Lutheran HospitalHemoglobin [Mass/volume] in BloodOrdered By: Dat [place] on 42-02-8280Jhhnpoypbn (Bld) [Mass/Vol]Hemoglobin [Mass/volume] in Blood13.0-17.0L[facility]an HospitalLeukocytes [#/volume] corrected for nucleated erythrocytes in Blood by Automated counOrdered By: Dat [place] on 88-59-3130EOH corrected for nucl RBC Auto (Bld) [#/Vol]Leukocytes [#/volume] corrected for nucleated erythrocytes in Blood by Automated coun4.1-10.5FCincinnati Shriners HospitalLymphocytes Auto (Bld) [#/Vol]Ordered By: Dat [place] on 87-63-7850Haeliboujyd (Bld) [#/Vol]Lymphocytes [#/volume] in Blood by Automated count1.00-4.8Lutheran HospitalLymphocytes/100 WBC Auto (Bld)Ordered By: Dat [place] on 60-36-9821Meqfeimlraf/100 WBC (Bld)Lymphocytes/100 leukocytes in Blood by Automated count.Lutheran HospitalMCH Auto (RBC) [Entitic mass] Ordered By: Dat [place] on 91-49-0912DRM (RBC) [Entitic mass]MCH [Entitic mass] by Automated count27.5-35.2FCincinnati Shriners HospitalMCHC Auto (RBC) [Mass/Vol]Ordered By: Dat [place] on 60-39-8864UREY (RBC) [Mass/Vol] MCHC [Mass/volume] by Automated count32.5-35.6FCincinnati Shriners Hospital MCV Auto (RBC) [Entitic vol]Ordered By: Dat [place] on 29-32-5527DKO (RBC) [Entitic vol]MCV [Entitic volume] by Automated count83.5-101Lutheran HospitalMonocytes Auto (Bld) [#/Vol]Ordered By: Dat [place] on 70-23-9647Wsfjphrjg (Bld) [#/Vol]Automated blood monocyte countHigh0.0-0.8 Lutheran HospitalMonocytes/100 WBC Auto (Bld)Ordered By: Dat Farnce on 27-02-9527Txowjwrjs/100 WBC (Bld)Automated monocyte %.Lutheran HospitalNeutrophils Auto (Bld) [#/Vol]Ordered By: Dat [place] on 10-96-1109Nalnshzwhne (Bld) [#/Vol]Neutrophils [#/volume] in Blood by Automated count1.8-7.7FCincinnati Shriners HospitalNeutrophils/100 WBC Auto (Bld)Ordered By: Dat [place] on 06-15-3596Lnurmqnbovb/100 WBC (Bld)Automated neutrophil %.Lutheran HospitalNo Panel InformationOrdered By: Dat [place] on 56-92-0343Xbwewoumo GFR (CKD-EPI)> 60.0 mL/MinLutheran HospitalPharmacy Creatinine Clearance (ChemN/AFCincinnati Shriners HospitalNucleated erythrocytes [Presence] in Blood by Automated count Ordered By: Dat [place] on 17-51-9300Obfcljrzw RBC Auto Ql (Bld)Nucleated erythrocytes [Presence] in Blood by Automated count0-0.5FCincinnati Shriners HospitalPlatelet mean volume Auto (Bld) [Entitic vol]Ordered By: Dat [place] on 62-87-1178Oqghhkqi mean volume (Bld) [Entitic vol]Platelet mean volume [Entitic volume] in Blood by Automated count6.6-10.1FCincinnati Shriners HospitalPlatelets Auto (Bld) [#/Vol]Ordered By: Dat [place] on 18-53-6630Ypjeiemfd (Bld) [#/Vol]Platelets [#/volume] in Blood by Automated -283BohqprtqgLutheran HospitalPotassium [Moles/volume] in Serum or PlasmaOrdered By: Dat [place] on 20-59-1179Mwtcknqss [Moles/Vol]Potassium [Moles/volume] in Serum or Plasma3.5-5.1FCincinnati Shriners HospitalRBC Auto (Bld) [#/Vol]Ordered By: Dat [place] on 28-30-1356VSS (Bld) [#/Vol] Erythrocytes [#/volume] in Blood by Automated count3.90-5.60Mer[facility] Clermont Hospitalerum or plasma anion gap determinationOrdered By: Dat [place] on 52-16-2520Stypw gap [Moles/Vol]Serum or plasma anion gap determination 6.0-15.0Mer[facility] Health Clermont Hospitalodium [Moles/volume] in Serum or PlasmaOrdered By: Dat [place] on 52-99-9409Orktnt [Moles/Vol]Sodium [Moles/volume] in Serum or Ufmzrt941-945JwiaxlyknLutheran HospitalUrea nitrogen [Mass/volume] in Serum or PlasmaOrdered By: Dat [place] on 45-33-0863Slqu nitrogen [Mass/Vol]Urea nitrogen [Mass/volume] in Serum or Plasma 10-07Lutheran HospitalWBC Auto (Bld) [#/Vol]Ordered By: Dat [place] on 10-32-5399MHB (Bld) [#/Vol]Leukocytes [#/volume] in Blood by Automated count4.1-10.5FCincinnati Shriners HospitalNo Panel Informationon 17-82-6406Rpcuzun obtained: written (The rationale for Mohs as well as the risks, benefits, and alternatives. The risks of infection, scarring, bleeding, prolonged wound healing, incomplete removal, allergy to anesthesia or meds, nerve injury, and recurrence were addressed.) [place] Protocol: Procedure explained and questions answered to [...] sodium bicarbonate Procedure Details: Biopsy accession number: [id number] Biopsy lab: [facility] Date of biopsy: 02/24/2024 Frozen section biopsy performed: Yes Specimen debulked: Yes Pre-Op diagnosis: basal cell carcinoma BCC subtype: nodular MohsAIQ Surgical site (if tumor spans multiple areas, please select predominant area): mormon Surgery side: left Surgical site (from skin exam): Left Anabaptist Pre-operative length (cm): 1.2 Pre-operative width (cm): [...] of surgery? Yes When were antibiotics given? post-operativeNOOR HealthcareNo Panel Information Ordered By: Lin Gillis on 52-92-9839RREF HealthcareCT ABDOMEN PELVIS WO/W CONon 14-50-6861[place] [address] [place] Scan Report Signed Patient: BILL ALLEN MR#: [id number] : 1950 Acct:[id number] Age/Sex: 73 / M ADM Date: 04/19/24 Loc: CT Attending Dr: Micaela Ireland M.D. Ordering Physician: Micaela Ireland M.D. Date of Service: 04/19/24 Procedure(s): CT abdomen pelvis wo/w con Accession Number(s): [id number] cc: Dayron Cervantes M.D. [place] [id number] Patient Name: BILL ALLEN MRN: [id number] date: 1950 Sex: M Assigned Patient Location: CT Current Patient Location: CT Accession/Order Number: [id number] Exam Date: 04/19/2024 10:24 Report Date: 04/19/2024 [...] Signed By: 04/19/24 1327 DD/ 1325 TD/TT: Chemic Mangler:TBHRadiology, Radiologist, - 04/19/2024 [place] [address] CT Scan Report Signed Patient: BILL ALLEN MR#: [id number] : 1950 Acct:[id number] Age/Sex: 73 / M ADM Date: 04/19/24 Loc: CT Attending Dr: Micaela Ireland M.D. Ordering Physician: Micaela Ireland M.D. Date of Service: 04/19/24 Procedure(s): CT abdomen pelvis wo/w con Accession Number(s): [id number] cc: Dayron Cervantes M.D. The [place] [id number] Patient Name: BILL ALLEN MRN: [id number] date: 1950 Sex: M Assigned Patient Location: CT Current Patient Location: CT Accession/Order Number: [id number] Exam Date: 04/19/2024 10:24 Report Date: 04/19/2024 [...] Signed By: 04/19/24 1327 DD/ 1325 TD/TT: Chemic Mangler: [facility] HealthcareRadiology Study observation (narrative)[facility] HealthcareCT ABDOMEN PELVIS WO/W CONOrdered By: Radiologist Radiology on 61-32-9878OMAL [employer] Work Phone: [facility] Fish and Urine Cyto ([facility])on 04-18-2024 UVFISH & UCDiagnosis InfoInvalid Interpretation [facility] Comment on above:Result Comment: A:Urine,Urine:Voided Diagnosis Summary - Clusters and singled atypical [...] aneuploidy in at least 4 cells were fo und. These findings should be correlated with cytology and cystoscopy results. * CPT: 34686, 77635. Microscopic Notes - Microscopic Notes - Abnormal cells 9p21 deletions: Abnormal cells aneploid events: 4 Total cells analyzed: 29 Hematuria: Gross Description Site ID:A color Yellow fixative Alcohol Received 100 mls of clear yellow fluid with the patient's name and, Urine on the vial. Electronically signed by : on: 04/18/2024 11:44:36Performed By: #### [id number] #### [facility] [address], [place] [address]Pvtgmkzhol Visit Summaryon 71-39-5876Ecrpqwcrat Visit Summary Ambulatory Visit Summary BILL ALLEN [...] Where: [facility] [address] [place] [phone] Allergies No Known Allergies Problems Ongoing - [...] including vitamins, herbs, eye drops, creams, and ukyn-qce-vxolazg medicines. ??? Any problems you or family [...] tells you to take them. ??? Taking mspv-qep-yreviws medicines, vitamins, herbs, and supplements. Tests You [...] care providers and hospita (more content not included)...[facility] HospitalUroVysion Fish and Urine Cyto ([facility])on 91-81-6079HUJW Method of ExtractionVoidedNoLima City HospitalComment on above:Performed By: #### [id number] #### [facility] [address], [place] [address]CRYE Number of Mcag1Osquhlh Interpretation CodeAkron Children'S HospitalComment on above:Performed By: #### [id number] #### [facility] [address], [place] [address]WTIX SpecimenUrineGeorgetown Behavioral HospitalComment on above:Performed By: #### [id number] #### [facility] [address], [place] [address]YDBX Type of ServiceTechnical OnlyGeorgetown Behavioral HospitalComment on above:Performed By: #### [id number] #### [facility] [address] [place], [place] [address]Xpamfoi Office/Clinic Noteon 60-33-8973Xpsfxdq Office/Clinic NoteUrology Office/Clinic Note Chief Complaint referal for gross [...] with urination. Hematuria resolved after taking Cipro. Nessa had gross hematuria again 03/31/24. Went to [...] a FISH test, and a cystoscopy to ruleout lower urinary tract pathology. Pt aware that [...] Urology [address], [place] [phone] Additional Instructions: sched cysto and CTU Patient [...] Allergies Social History Alcoho (more content not included)...[facility] HospitalComment on above:Result Comment: Electronically Signed By: Micaela IRELAND MD\.br\Date and Time Signed: 04/11/24 14:18 EST\.br\Electronically Co-Signed By: Brittni Murray\.br\Date and Time Co-Signed: 04/11/24 14:15 ESTURINE CULTURE, ROUTINEon 55-08-7527Wweyttac identified Cx Nom (U) Urine Culture, Routine NOMS HealthcareBacteria identified Cx Nom (U)Culture shows less than 10,000 colony forming units of bacteria perNOMS HealthcareBacteria identified Cx Nom (U)milliliter of urine. This colony count is not generally consideredNOOR HealthcareBacteria identified Cx Nom (U)to be clinically significant.[facility]OMS HealthcareBacteria identified Cx Nom (U)Performed at: - [facility]co[facility] HealthcareBacteria identified Cx Nom (U)[address] [place] [phone] NOMS HealthcareBacteria identified Cx Nom (U)Adult School Teacher: Miguel Ángel Perea PhD, Phone: [phone] Valley Memorial HospitalCLINISYNCNOMS AqqbufwaqxIjP9x (Bld) [Mass fraction]on 01-67-8390Ivnnvvzwhooame and review of laboratory resultsAbnormal [facility] HealthcareLaboratory - Hematology and Cell countson 93-47-9424PsV2g (Bld) [Mass fraction]6 %[facility] HealthcareUrinalysis macro (dipstick) panel (U)on 83-09-0572Evlelshvf, UAFewNegative - 4(70) +++ mg/dLNOMS HealthcareBlood, UAPositiveNegative - 50 [place]/mcLNOMS HealthcareClarity, UACloudy NOMS HealthcareColor, UARedNOMS HealthcareGlucose, UAPositiveNegative - 2000(110) ++++ mg/dLNOMS HealthcareInterpretation and review of laboratory resultsAbnormalNOMS HealthcareKetones, UANegativeNegative - 160(16) ++++ mg/dL [facility] HealthcareLeukocytes, UANegativeNegative - 500+++ Robbie/mcLNOMS Healthcare Nitrite, UANegativeNegative - PositiveNOMS HealthcarepH, UA5.55 - 9NOMS HealthcareProtein, UAModerateNegative - 2000(20) ++++ mg/dLNOMS HealthcareSpec Grav, UA1.021 - 1.03NOMS HealthcareUrobilinogen, UA0.20.2 - 12 mg/dLNOMS HealthcareNOMS HealthcareUrine Cultureon 06-87-9324Ktipwqwu identified Cx Nom (U)<9,000 colonies/ml mixed bacterial skin contaminants 2 Days PERFORMED BY: [place] [address] PATHOLOGIST [employer] MECH[employer]IC MELISSA AMBROCIO M.D.NormalThe [facility] Physician GroupComment on above: Performed By: #### CUU #### [place] [address] USAUrine cultureOrdered By: Kevan Berrios on 22-32-1104Pavazqry identified Cx Nom (U)Urine cultureLutheran HospitalBacteria identified Cx Nom (U)Urine cultureLutheran HospitalNo Panel Informationon 40-40-4091Bdjw of biopsy: tangential Informed consent: discussed and [...] Photo taken Amount of lidocaine used: 0.6 [facility] InformationOrdered By: Jody Romero on 86-84-5267UTPTThompson Cancer Survival [facility], [place] PROTHROMBIN TIME INR W/O COUMon 37-33-2911Lsveehospuxvio and review of laboratory resultsAbMyMichigan Medical Center West Branch PT Coag (PPP) [Time]28.3 [facility] INR2.97NOOR HealthcareComment on above:DESIRED INR: 2.0-3.0 CONDITIONS NOT LISTED BELOW 2.5-3.5 FOR PROSTHETIC HEART VALVE REPLACEMENT 2.5-3.5 RECURRENT THROMBOSIS [facility] PROTHROMBIN TIME INR W/O COUMon 01-27-2024 Interpretation and review of laboratory resultsAbMyMichigan Medical Center West BranchPT Coag (PPP) [Time]22.4 [facility] INR2.29NOOR HealthcareComment on above: DESIRED INR: 2.0-3.0 CONDITIONS NOT LISTED BELOW 2.5-3.5 FOR PROSTHETIC HEART VALVE REPLACEMENT 2.5-3.5 RECURRENT THROMBOSIS [facility] PROTHROMBIN TIME INR W/O COUMon 12-16-2023 Interpretation and review of laboratory resultsAbMyMichigan Medical Center West BranchPT Coag (PPP) [Time]29.3 [facility] INR3.09NOOR HealthcareComment on above: DESIRED INR: 2.0-3.0 CONDITIONS NOT LISTED BELOW 2.5-3.5 FOR PROSTHETIC HEART VALVE REPLACEMENT 2.5-3.5 RECURRENT THROMBOSIS [facility] PROTHROMBIN TIME INR W/O COUMon 11-05-2023 Interpretation and review of laboratory resultsAbMyMichigan Medical Center West BranchPT Coag (PPP) [Time]26.3 [facility] INR2.74NOOR HealthcareComment on above: DESIRED INR: 2.0-3.0 CONDITIONS NOT LISTED BELOW 2.5-3.5 FOR PROSTHETIC HEART VALVE REPLACEMENT 2.5-3.5 RECURRENT THROMBOSIS CLINMENDOCINO STATE HOSPITALNCNOGeneral [facility] 12 leadon 15-28-5756BBMZRWTXQOMSRVAhrCulvey Health SystemXR lumbar spine 6V w bendingon 19-43-4852UJ lumbar spine 6V w bending [facility] Main [address] [address] XRay Report Signed Patient: Bill Allen MR#: [id number] 36 : 1950 Acct:[id number] Age/Sex: 73 / M ADM Date: 09/18/23 Loc: XD Room: Type: REG CLI Attending Dr: Sonido Quiles MD Copies to: Sonido Quiles MD Ordering Provider: Sonido Quiles MD Date of Service: 09/18/23 XR/XR lumbar [...] Encinas Jr., D.O.09/18/2023 3:18 PM Dictation Location: [place] [address] Transcribed By: [facility] 09/18/23 1518 Dictated By: Guille Encinas Jr, DO 09/18/23 1517 Signed By: 09/18/23 [facility] Physician GroupMR lumbar spine wo [facility] [place] 30-33-8859DE lumbar spine wo [facility] Main [address] [address] MRI Report Signed Patient: Bill Allen MR#: [id number] [birth year] : 1950 Acct:[id number] Age/Sex: 72 / M ADM Date: 07/23/23 Loc: MR Room: Type: REG CLI Attending : Stanley Gregory II, MD Copies to: Stanley [...] Leland Murillo M.D.07/23/2023 3:18 PM Dictation Location: [place] [address] Transcribed By: [facility] 07/23/23 1518 Dictated By: Leland Murillo II, MD 07/23/23 1511 Signed By: 07/23/23 1518[facility] Physician GroupXR hip BI w CTV7Ckh 63-34-9107JP hip BI w HZB0GDDALLVVUVCLEVELAND [facility]INIC [facility] [address] [place] [address] XRay Report Signed Patient: Bill Allen MR#: [id number] [birth year] : 1950 Acct:[id number] Age/Sex: 72 / M ADM Date: 07/15/23 Loc: [facility] Room: Type: [facility] Attending Dr: Stanley Gregory II, MD Copies [...] Irving Saldivar M.D.07/15/2023 10:09 AM Dictation Location: [place] [address] Transcribed By: [facility] 07/15/23 1009 Dictated By: Irving Saldivar DO 07/15/23 1008 Signed By: 07/15/23 1009[facility] Physician GroupXR lumbar spine AP/LAT/FLX/EXTon 47-89-0738FH lumbar spine AP/LAT/FLX/EXTCLEVELAND CLINIC CHIL[facility] [address] [place] [address] XRay Report Signed Patient: Bill Allen MR#: [id number] [birth year] : 1950 Acct:[id number] Age/Sex: 72 / M ADM Date: 07/15/23 Loc: [facility] Room: Type: [facility] Attending Dr: Stanley Gregory II, MD Copies [...] Vicky Hill M.D.07/15/2023 1:59 PM Dictation Location: [place] [address] Transcribed By: [facility] 07/15/23 135 Dictated By: Vicky Hill MD 07/15/23 135 Signed By: 07/15/[address] [place] [address] Physician GroupPROTIMEon 07-08-3471NGQ Coag (PPP) [Relative time]2.75 {INR}NormalTrinity Health System East CampusComment on above: Performed By: #### PT #### [facility] [address] [place] [address] Dr. Roya Catalan GUIDELINESSEE [facility] Boardman HospitalComment on above:Result Comment: DESIRED INR: 2.0 - 3.0 CONDITIONS NOT LISTED BELOW 2.5 - 3.5 FOR PROSTHETIC HEART VALVE REPLACEMENT 2.5 - 3.5 RECURRENT THROMBOSIS Performed By: #### PT #### [facility] [address] [place] [address] Dr. Roya Delaney Coag (PPP) [Time]27.5 sCritically high9.0-11.6ThUpper Valley Medical CenterComment on above:Performed By: #### PT #### [facility] [address] [place] [address] Dr. Roya MartinPROTCarlene 80-88-8857CPC Coag (PPP) [Relative time]2.97 {INR} NormalTrinity Health System East CampusComhenry ford wyand[facility] hospital on above:Performed By: #### PT #### [facility] [address] [place] [address] Dr. Roya Catalan GUIDELINESSEE [facility] HospitalComhenry ford wyandotte hospital on above:Result Comment: DESIRED INR: 2.0 - 3.0 CONDITIONS NOT LISTED BELOW 2.5 - 3.5 FOR PROSTHETIC HEART VALVE REPLACEMENT 2.5 - 3.5 RECURRENT THROMBOSIS Performed By: #### PT #### [facility] [address] [place] [address] Dr. Roya Delaney Coag (PPP) [Time]29.6 sCritically high9.0-11.6The [facility] Medical CenterComment on above:Performed By: #### PT #### [facility] [address] [place] [address] Dr. Roya MartinPROTIMEon 57-79-7137DMR Coag (PPP) [Relative time]3.40 {INR} NormalTrinity Health System East CampusComhenry ford wyandotte hospital on above:Performed By: #### PT #### [facility] [address] [place] [address] Dr. Roya Catalan GUIDELINESSEE [facility] Boardman HospitalComment on above:Result Comment: DESIRED INR: 2.0 - 3.0 CONDITIONS NOT LISTED BELOW 2.5 - 3.5 FOR PROSTHETIC HEART VALVE REPLACEMENT 2.5 - 3.5 RECURRENT THROMBOSIS Performed By: #### PT #### [facility] [address] [place] [address] Dr. Roya Delaney Coag (PPP) [Time]33.6 sCritically high9.0-11.6The [facility] Medical CenterComment on above:Performed By: #### PT #### [facility] [address] [place] [address] Dr. Roya MartinPROTIMEon 33-73-4095HZQ Coag (PPP) [Relative time]2.45 {INR} NormalTrinity Health System East CampusComhenry ford wyandotte hospital on above:Performed By: #### PT #### [facility] [address] [place] [address] Dr. Roya Catalan GUIDELINESSEE [facility] HospitalComment on above:Result Comment: DESIRED INR: 2.0 - 3.0 CONDITIONS NOT LISTED BELOW 2.5 - 3.5 FOR PROSTHETIC HEART VALVE REPLACEMENT 2.5 - 3.5 RECURRENT THROMBOSIS Performed By: #### PT #### [facility] [address] [place] [address] Dr. Roya Delaney Coag (PPP) [Time]25.0 sCritically high9.0-11.6The [facility] Medical CenterComment on above:Performed By: #### PT #### [facility] [address] [place] [address] Dr. Roya Garcia CHEST HI RESOLUTIONon 32-72-8978YU CHEST HI RESOLUTION EXAMINATION: CT CHEST HI [...] Electronically authenticated by: KELY TAYLOR Date: 2021-11-27 08:[address] [place], [place] [address]HEMOGLOBINon 23-14-1277Urkulnwfyy (Bld) [Mass/Vol]15.4 g/dL Lrvuat75.0-18.0The [facility] CenterComment on above:Performed By: #### HGB #### [facility] [address] [place] [address] Dr. Roya MartinPROTIMEon 97-34-7334ZYA Coag (PPP) [Relative time]2.28 {INR} NormalThe [facility] on above:Performed By: #### PT #### [facility] [address] [place] [address] Dr. Roya Catalan GUIDELINESSEE BELOWOhioHealth Mansfield HospitalComment on above:Result Comment: DESIRED INR: 2.0 - 3.0 CONDITIONS NOT LISTED BELOW 2.5 - 3.5 FOR PROSTHETIC HEART VALVE REPLACEMENT 2.5 - 3.5 RECURRENT THROMBOSIS Performed By: #### PT #### [facility] [address] [place] [address] Dr. Roya MartinPT Coag (PPP) [Time]23.3 sCritically high9.0-11.6The [facility] Medical CenterComment on above:Performed By: #### PT #### [facility] [address] [place] [address] [address] Roya MartinPROTIMEon 80-07-8558CMI Coag (PPP) [Relative time]2.70 {INR} NormalThe [facility] CenterComment on above:Performed By: #### PT #### [facility] [address] [place] [address] [address] Roya MartinINR GUIDELINESSEE BELOWOhioHealth Mansfield HospitalComment on above:Result Comment: DESIRED INR: 2.0 - 3.0 CONDITIONS NOT LISTED BELOW 2.5 - 3.5 FOR PROSTHETIC HEART VALVE REPLACEMENT 2.5 - 3.5 RECURRENT THROMBOSIS Performed By: #### PT #### [facility] [address] [address] [address] Roya MartinPT Coag (PPP) [Time]27.3 sCritically high9.0-11.6The [facility] Medical CenterComment on above:Performed By: #### PT #### [facility] [address] [address] [address] Roya Martin Vital Signs Date TimeVital SignValuePerforming WcydiawnjHkvreved04-37-7638 08:31-0400Body dqdiyooalfi98.5 [degF]Dayron Cervantes MD Work Phone: [phone]09-24-2025 08:31-0400 Body kxipab598.24 kgDayron Cervantes MD Work Phone: [phone] [place], [place] 2587609-24-2025 08:31-0400 Diastolic blood vrvyxhve03 mm[Hg]Dayron Cervantes MD Work Phone: [phone]-[facility]09-24-2025 08:31-0400 Heart rate67 /minDayron Cervantes MD Work Phone: [phone] 08:31-0400 Respiratory rate18 /minDayron Cervantes MD Work Phone: [phone] [place], [place] 2587609-24-2025 08:31-0400 SaO2% (BldA) [Mass fraction]97 %Dayron Cervantes MD Work Phone: [facility]09-24-2025 08:31-0400 Systolic blood mtavnoau413 mm[Hg]Dayron Cervantes MD Work Phone: [facility]08-18-2025 10:15-0400 Body mass index (BMI) [Ratio]31.26 kg/m2Trevon Real MD Work Phone: [facility]08-18-2025 10:15-0400Body temperature 97.11 [degF]Trevon Real MD Work Phone: [facility]08-18-2025 10:15-0400Body oxrxgd78.5 kgTrevon Real MD Work Phone: [facility]08-18-2025 10:15-0400Diastolic blood uxjlqnpw94 mm[Hg]Trevon Real MD Work Phone: [facility]08-18-2025 10:15-0400Heart rate60 /min Trevon Real MD Work Phone: [facility]08-18-2025 10:15-0400Respiratory rate 16 /minSpaulino Real MD Work Phone: [facility]08-18-2025 10:15-2683EcX1% (BldA) [Mass fraction]95 %Trevon Real MD Work Phone: [facility]08-18-2025 10:15-0400Systolic blood ltupnmgt717 mm[Hg]Trevon Real MD Work Phone: [facility]07-21-2025 09:51-0400Body kryxtp122.6 cmMindi Ireland APRN.RAILROAD TRACK INSPECTOR Work Phone: [facility]07-21-2025 09:51-0400Body mass index (BMI) [Ratio]30.72 kg/t8Jvxyml Elizabeth TELESCOPE OPERATOR.RAILROAD TRACK INSPECTOR Work Phone: [facility]07-21-2025 09:51-0400Body temperature 97.7 [degF]Mindi Ireland TELESCOPE OPERATOR.RAILROAD TRACK INSPECTOR Work Phone: [facility]07-21-2025 09:51-0400Body .8 kgMindi Ireland TELESCOPE OPERATOR.RAILROAD TRACK INSPECTOR Work Phone: [facility]07-21-2025 09:51-0400Diastolic blood mm[Hg]Mindi Elizabeth TELESCOPE OPERATOR.RAILROAD TRACK INSPECTOR Work Phone: [facility]07-21-2025 09:51-0400Heart rate89 /min Mindi Ireland TELESCOPE OPERATOR.RAILROAD TRACK INSPECTOR Work Phone: [facility]07-21-2025 09:51-0400Respiratory rate 16 /minMindi Ireland TELESCOPE OPERATOR.RAILROAD TRACK INSPECTOR Work Phone: [facility]07-21-2025 09:51-5205SmJ8% (BldA) [Mass fraction]98 %Mindi Ireland TELESCOPE OPERATOR.RAILROAD TRACK INSPECTOR Work Phone: [facility]07-21-2025 09:51-0400Systolic blood vgoofpvb432 mm[Hg]Mindi Ireland TELESCOPE OPERATOR.RAILROAD TRACK INSPECTOR Work Phone: [facility]07-16-2025 09:28-0400Body wlyyqu859.6 cmFRANCISCO Smith MD Work Phone: [address] [address]-16-2025 09:28-0400Body mass index (BMI) [Ratio]31.29 kg/m2FRANCISCO Smith MD Work Phone: [facility]07-16-2025 09:28-0400Body temperature 97.81 [degF]FRANCISCO Smith MD Work Phone: [address] [address]-16-2025 09:28-0400Body ooaras63.6 kgFRANCISCO Smith MD Work Phone: [address] [address]-16-2025 09:28-0400Diastolic blood idvmsrme00 mm[Hg]FRANCISCO Smith MD Work Phone: [facility]07-16-2025 09:28-0400Heart rate60 /min FRANCISCO Smith MD Work Phone: [facility]07-16-2025 09:28-0400Respiratory rate 16 /JaquiFRANCISCO Smith MD Work Phone: [facility]07-16-2025 09:28-1098CcO2% (BldA) [Mass fraction]98 %FRANCISCO Smith MD Work Phone: [facility]07-16-2025 09:28-0400Systolic blood mm[Hg]FRANCISCO Smith MD Work Phone: [facility]07-14-2025 09:28-0400Diastolic blood nwdluooj61 mm[Hg]Chair Tavon Work Phone: [facility] HospitalComment on above:djiegcb01-87-9113 09:28-0400Systolic blood gsyuxpvo282 mm[Hg]Chair Tavon Work Phone: [facility] HospitalComment on above:ccxbfqo08-47-0157 08:38-0400Diastolic blood dcidouwx58 mm[Hg]Layton Personer PA-C Work Phone: [facility] HospitalComment on above:recheck on RT arm 09-26-2024 08:38-0400Systolic blood ntelwvwc193 mm[Hg]Layton Barrington PA-C Work Phone: [facility] HospitalComment on above:recheck on RT arm 09-26-2024 08:31-0400Body .6 cmMinchad Barrington PA-C Work Phone: [facility]07-14-2025 08:31-0400Body mass index (BMI) [Ratio]30.91 kg/b1Srsny Barrington PA-C Work Phone: [facility]07-14-2025 08:31-0400Body temperature 97.11 [degF]Layton Personer PA-C Work Phone: [facility]07-14-2025 08:31-0400Body rrajpa20.4 kgMindy Barrington PA-C Work Phone: [facility]07-14-2025 08:31-0400Heart rate74 /min Layton Barrington PA-C Work Phone: [facility]07-14-2025 08:31-0400Respiratory rate 16 /minMindy Barrington PA-C Work Phone: [facility]07-14-2025 08:31-5167WnM7% (BldA) [Mass fraction]98 %Layton Personer PA-C Work Phone: [facility]07-09-2025 09:28-0400Body mass index (BMI) [Ratio]31.81 kg/m2Trevon Real MD Work Phone: [facility]07-09-2025 09:28-0400Body temperature 97.81 [degF]Trevon Real MD Work Phone: [facility]07-09-2025 09:28-0400Body pbkxpo34.2 kgTrevon Real MD Work Phone: [facility]07-09-2025 09:28-0400Diastolic blood kuvuyfpd29 mm[Hg]Trevon Real MD Work Phone: [facility]07-09-2025 09:28-0400Heart rate64 /min Trevon Real MD Work Phone: [facility]07-09-2025 09:28-0400Respiratory rate 16 /minSpaulino Real MD Work Phone: [facility]07-09-2025 09:28-9542GnU2% (BldA) [Mass fraction]98 %Trevon Real MD Work Phone: [facility]07-09-2025 09:28-0400Systolic blood mm[Hg]Trevon Rael MD Work Phone: [facility]07-07-2025 11:14-0400Body ycvggo530.6 cmNataly Monson APRN.RAILROAD TRACK INSPECTOR Work Phone: [facility]07-07-2025 11:14-0400Body mass index (BMI) [Ratio]30.94 kg/t5HfwohNataly Monson APRN.RAILROAD TRACK INSPECTOR Work Phone: [facility]07-07-2025 11:14-0400Body temperature 97.7 [degF]Nataly Monson APRN.RAILROAD TRACK INSPECTOR Work Phone: [facility]07-07-2025 11:14-0400Body afzpwh23.5 kgNataly Monson APRN.RAILROAD TRACK INSPECTOR Work Phone: [facility]07-07-2025 11:14-0400Diastolic blood vhuiarbl27 mm[Hg]Nataly Monson APRN.RAILROAD TRACK INSPECTOR Work Phone: [facility]07-07-2025 11:14-0400Heart rate65 /min Nataly Monson APRN.RAILROAD TRACK INSPECTOR Work Phone: [facility]07-07-2025 11:14-0400Respiratory rate 16 /minNataly Monson APRN.RAILROAD TRACK INSPECTOR Work Phone: [facility]07-07-2025 11:14-9584DoD0% (BldA) [Mass fraction]98 %Nataly Monson APRN.RAILROAD TRACK INSPECTOR Work Phone: [facility]07-07-2025 11:14-0400Systolic blood mm[Hg]Nataly Monson APRN.RAILROAD TRACK INSPECTOR Work Phone: [facility]07-03-2025 10:120400Body temperature 97 [degF]Nurse Taylor Work Phone: [facility]07-03-2025 10:120400Diastolic blood johqxesg80 mm[Hg]Nurse Taylor Work Phone: [facility]07-03-2025 10:12-0400Heart rate66 /min Nurse Tavon Work Phone: [facility]07-03-2025 10:12-0400Respiratory rate 18 /minNurse Tavon Work Phone: [facility]07-03-2025 10:12-6705XfT8% (BldA) [Mass fraction]99 %Nurse Tavon Work Phone: [facility]07-03-2025 10:12-0400Systolic blood fkbdrfac947 mm[Hg]Nurse Tavon Work Phone: [facility]07-02-2025 09:37-0400Body kjpbxo452.6 cmSpaulino Real MD Work Phone: [facility]07-02-2025 09:37-0400Body mass index (BMI) [Ratio]32 kg/m2Trevon Real MD Work Phone: [facility]07-02-2025 09:37-0400Body temperature 97.59 [degF]Trevon Real MD Work Phone: [facility]07-02-2025 09:37-0400Body oxnuae63.8 kgTrevon Real MD Work Phone: [facility]07-02-2025 09:37-0400Diastolic blood mm[Hg]Trevon Real MD Work Phone: [facility]07-02-2025 09:37-0400Heart rate58 /min Trevon Real MD Work Phone: [facility]07-02-2025 09:37-0400Respiratory rate 16 /minSpaulino Real MD Work Phone: [facility]07-02-2025 09:37-8051JmR6% (BldA) [Mass fraction]98 %Trevon Real MD Work Phone: [facility]07-02-2025 09:37-0400Systolic blood wilfanai694 mm[Hg]Trevon Real MD Work Phone: [facility]06-30-2025 10:09-0400Body gufsgn551.6 cmSymoneimee Elizabeth TELESCOPE OPERATOR.RAILROAD TRACK INSPECTOR Work Phone: [facility]06-30-2025 10:09-0400Body mass index (BMI) [Ratio]31.87 kg/j5Evaehh Elizabeth TELESCOPE OPERATOR.RAILROAD TRACK INSPECTOR Work Phone: [facility]06-30-2025 10:09-0400Body temperature 97.5 [degF]Mindi Elizabeth TELESCOPE OPERATOR.RAILROAD TRACK INSPECTOR Work Phone: [facility]06-30-2025 10:09-0400Body upyomj33.4 kgJhonatane Elizabeth TELESCOPE OPERATOR.RAILROAD TRACK INSPECTOR Work Phone: [facility]06-30-2025 10:09-0400Diastolic blood airywovl89 mm[Hg]Mindi Elizabeth TELESCOPE OPERATOR.RAILROAD TRACK INSPECTOR Work Phone: [facility]06-30-2025 10:09-0400Heart rate64 /min Mindi Elizabeth TELESCOPE OPERATOR.RAILROAD TRACK INSPECTOR Work Phone: [facility]06-30-2025 10:09-0400Respiratory rate 16 /minJaimee Elizabeth TELESCOPE OPERATOR.RAILROAD TRACK INSPECTOR Work Phone: [facility]06-30-2025 10:09-0457XnU8% (BldA) [Mass fraction]95 %Mindi Elizabeth TELESCOPE OPERATOR.RAILROAD TRACK INSPECTOR Work Phone: [facility]06-30-2025 10:09-0400Systolic blood symfjsha651 mm[Hg]Mindi Elizabeth TELESCOPE OPERATOR.RAILROAD TRACK INSPECTOR Work Phone: [facility]06-26-2025 09:44-0400Body mass index (BMI) [Ratio]32 kg/m2Trevon Real MD Work Phone: [facility]06-26-2025 09:44-0400Body temperature 98.29 [degF]Trevon Real MD Work Phone: [facility]06-26-2025 09:44-0400Body jyfjqz17.8 kgTrevon Real MD Work Phone: [facility]06-26-2025 09:44-0400Diastolic blood kwupdset56 mm[Hg]Trevon Real MD Work Phone: [facility]06-26-2025 09:44-0400Heart rate58 /min Trevon Real MD Work Phone: [address] [address]-26-2025 09:44-0400Respiratory rate 18 /minSpaulino Real MD Work Phone: [address] [address]-26-2025 09:44-2796KrE9% (BldA) [Mass fraction]97 %Trevon Real MD Work Phone: [facility]06-26-2025 09:44-0400Systolic blood sxidxggn862 mm[Hg]Trevon Real MD Work Phone: [facility]06-23-2025 11:38-0400Body czweja363.6 Vladdorian Taylor Work Phone: [facility] HospitalComment on above:verified by 2 caregivers, with -[phone] 11:11-0400Body mass index (BMI) [Ratio]32.79 kg/l1MpqsmxMindi Ireland TELESCOPE OPERATOR.RAILROAD TRACK INSPECTOR Work Phone: [facility]06-23-2025 11:11-0400Body temperature 97.39 [degF]Mindi Ireland TELESCOPE OPERATOR.RAILROAD TRACK INSPECTOR Work Phone: [facility]06-23-2025 11:11-0400Body jdsirl26.8 kgMindi Ireland TELESCOPE OPERATOR.RAILROAD TRACK INSPECTOR Work Phone: [facility]06-23-2025 11:11-0400Diastolic blood uxcafutc63 mm[Hg]Mindi Ireland TELESCOPE OPERATOR.RAILROAD TRACK INSPECTOR Work Phone: [facility]06-23-2025 11:11-0400Heart rate68 /min Mindijuvenal Ngod TELESCOPE OPERATOR.RAILROAD TRACK INSPECTOR Work Phone: [facility]06-23-2025 11:11-0400Respiratory rate 18 /minSymonejuvenal Ngod TELESCOPE OPERATOR.RAILROAD TRACK INSPECTOR Work Phone: [facility]06-23-2025 11:11-4525NlQ8% (BldA) [Mass fraction]98 %Mindi Elizabeth TELESCOPE OPERATOR.RAILROAD TRACK INSPECTOR Work Phone: [facility]06-23-2025 11:11-0400Systolic blood nxkmdcan165 mm[Hg]Mindi Ngod TELESCOPE OPERATOR.RAILROAD TRACK INSPECTOR Work Phone: [facility]06-20-2025 10:25-0400Body xuzqix672.3 cmDayron Cervantes MD Work Phone: [facility] HospitalKxgtapudvn26-09-1607 10:25-0400Body mass index (BMI) [Ratio]32.34 kg/m2Dayron Cervantes MD Work Phone: [facility] HospitalRchehicvbp40-87-3071 10:25-0400Body temperature 97.81 [degF]Dayron Cervantes MD Work Phone: [facility] HospitalPlrybzildn88-72-4490 10:25-0400Body anqyzs00.34 kgDayron Cervantes MD Work Phone: [facility] HospitalYdyfwdqwfd84-87-4872 10:25-0400Diastolic blood hejjyfsm40 mm[Hg]Dayron Cervantes MD Work Phone: [facility] HospitalYafhhkkxes12-67-7781 10:25-0400Heart rate78 /min Dayron Cervantes MD Work Phone: [facility] HospitalVvjvzjtyhh05-47-0305 10:25-0400Respiratory rate16 /minDayron Cervantes MD Work Phone: [facility] HospitalEwciurhzdq59-76-4346 10:25-5036NqR0% (BldA) [Mass fraction]97 %Dayron Cervantes MD Work Phone: [facility] HospitalNujhkpilwb72-91-3283 10:25-0400Systolic blood xihknitp925 mm[Hg]Dayron Cervantes MD Work Phone: [facility] HospitalEqleilvmnh73-25-8737 10:30-0400Body yncmlc254.3 cmPaul Bialyceenara DO Work Phone: [facility] HospitalCrwgbfltxb57-03-6454 10:30-0400Body mass index (BMI) [Ratio]32.49 kg/m2Paul Biedenbach DO Work Phone: [facility] HospitalKurieznqbi54-76-2576 10:30-0400Body oyzszt64.79 kgPaul Bialyceenbach DO Work Phone: [facility] HospitalBaswzqsnbo94-64-4364 09:53-0400Body mass index (BMI) [Ratio]33.5 kg/m2Trevon Real MD Work Phone: [facility]05-29-2025 09:53-0400Body temperature 97 [degF]Trevon Real MD Work Phone: [facility]05-29-2025 09:53-0400Body okvcki43.9 kgTrevon Real MD Work Phone: [facility]05-29-2025 09:53-0400Diastolic blood bppyizud29 mm[Hg]Trevon Real MD Work Phone: [facility]05-29-2025 09:53-0400Heart rate67 /min Trevon Real MD Work Phone: [facility]05-29-2025 09:53-0400Respiratory rate 18 /minSpaulino Real MD Work Phone: [facility]05-29-2025 09:53-3122XnN1% (BldA) [Mass fraction]99 %Trevon Real MD Work Phone: [facility]05-29-2025 09:53-0400Systolic blood nqwglary200 mm[Hg]Trevon Real MD Work Phone: [facility]05-28-2025 14:59-0400Body xyzgsr091.7 cmVcharley Stockton MD Work Phone: [facility]05-28-2025 14:59-0400Body mass index (BMI) [Ratio]33.23 kg/u7JzkrkArianne Stockton MD Work Phone: [facility]05-28-2025 14:59-0400Body temperature 97.81 [degF]Arianne Stockton MD Work Phone: [facility]05-28-2025 14:59-0400Body qewwzr76.1 kgArianne Stockton MD Work Phone: [facility]05-28-2025 14:59-0400Diastolic blood sxiiylqd01 mm[Hg]Arianne Stockton MD Work Phone: [facility]05-28-2025 14:59-0400Heart rate68 /min Arianne Stockton MD Work Phone: [facility]05-28-2025 14:59-0400Respiratory rate 16 /minArianne Stockton MD Work Phone: [facility]05-28-2025 14:59-7352AyT4% (BldA) [Mass fraction]98 %Arianne Stockton MD Work Phone: [facility]05-28-2025 14:59-0400Systolic blood pwwcmiun697 mm[Hg]Arianne Stockton MD Work Phone: [facility]05-16-2025 10:19-0400Body .3 cmPaul Biedenbach DO Work Phone: [facility] HospitalZqhrlxxjoj34-10-9462 10:19-0400Body mass index (BMI) [Ratio]32.49 kg/m2Paul Biedenbach DO Work Phone: [facility] HospitalJgvrekmmmf53-55-6228 10:19-0400Body .79 kgPaul Biedenbach DO Work Phone: [facility] HospitalGdgajfnzsz32-87-8304 15:02-0400Body gvxgyf861.7 cmPacc 2 Work Phone: [place] [address]-28-2025 15:02-0400Body mass index (BMI) [Ratio]33.09 kg/m2Pacc 2 Work Phone: [phone] [place] [address]-28-2025 15:02-0400Body temperature 98.01 [degF]Pacc 2 Work Phone: [phone] [address]-28-2025 15:02-0400Body gawhbv77.7 kgPacc 2 Work Phone: [phone] [place] [address]-28-2025 15:02-0400Diastolic blood mm[Hg]Pacc 2 Work Phone: [phone] [address]-28-2025 15:02-0400Heart rate64 /min Pacc 2 Work Phone: [phone] [address]-28-2025 15:02-5228FaS2% (BldA) [Mass fraction]99 %Pacc 2 Work Phone: [place] [address]-28-2025 15:02-0400Systolic blood lwcbqomj102 mm[Hg]Pacc 2 Work Phone: [phone] [address]-28-2025 13:18-0400Body deqbxj625.3 Georgina Stein MD Work Phone: [phone] [address]-28-2025 13:18-0400Body mass index (BMI) [Ratio]32.6 kg/b2YiljkyLilliam Stein MD Work Phone: [phone] [address]-28-2025 13:18-0400Body temperature 97.7 [degF]Lilliam Stein MD Work Phone: [phone] [address]-28-2025 13:18-0400Body .9 kgLilliam Stein MD Work Phone: [phone] [address]-28-2025 13:18-0400Diastolic blood yhcgiivw75 mm[Hg]Lilliam Stein MD Work Phone: [facility] HospitalComment on above:provider made aware 07-11-2024 13:18-0400Heart rate63 /Xin Stein MD Work Phone: [facility]04-28-2025 13:18-0400Respiratory rate 20 /Xin Stein MD Work Phone: [facility]04-28-2025 13:18-0758TpT4% (BldA) [Mass fraction]100 %Lilliam Stein MD Work Phone: [facility] HospitalComment on above:[id number] 13:18-0400Systolic blood suwogrsf954 mm[Hg]Lilliam Stein MD Work Phone: [facility] HospitalComment on above:provider made aware 07-08-2024 08:44-0400Body .3 cmPaul Biedenbach DO Work Phone: [place] [address]Ujawcswttc26-38-3959 08:44-0400Body mass index (BMI) [Ratio]32.49 kg/m2Paul Biedenbach DO Work Phone: [place] [address]Cqazhgomte44-97-6646 08:44-0400Body dqhixs42.79 kgPaul Biedenbach DO Work Phone: [place] [address]Jlqfrfukat65-37-0054 16:00-0400Diastolic blood ygucupwi13 mm[Hg]Arjun Chung MD Work Phone: [place] [address]Jwecckrrns47-53-0111 16:00-0400Systolic blood ikfdtgci815 mm[Hg]Arjun Chung MD Work Phone: [place] [address]Liomhrvala22-77-0269 10:53-0400Body esenko699.3 cmPaul Biedenbach DO Work Phone: [place] [address]Momkpxgxng66-16-7503 10:53-0400Body mass index (BMI) [Ratio]32.49 kg/m2Paul Biedenbach DO Work Phone: [facility] HospitalClvyhlwkdi85-77-9834 10:53-0400Body jjhwaz11.79 kgPaul Biedenbach DO Work Phone: [facility] HospitalLretwtvuiq93-12-1753 14:08-0400Body .3 cmBenjamin Murcek DO Work Phone: [facility] HospitalNqdccxjmxu76-90-0480 14:08-0400Body mass index (BMI) [Ratio]32.49 kg/v6Vimmihmf Murcek DO Work Phone: [facility] HospitalAzjmrxkkim45-08-8144 14:08-0400Body obbyrr27.79 kgBensymonemin Murcek DO Work Phone: [facility] HospitalRugdmfdifm47-42-3593 18:25-0500Diastolic blood fureesen09 mm[Hg]Dayron Cervantes MD Work Phone: [phone] [place], [place] 2587603-05-2025 18:25-0500 Heart rate79 /Leann Cervantes MD Work Phone: [phone] [place], [place] 2587603-05-2025 18:25-0500 Respiratory rate16 /Leann Cervantes MD Work Phone: [phone])[address]03-05-2025 18:25-0500 SaO2% (BldA) [Mass fraction]95 %Dayron Cervantes MD Work Phone: [phone])356-[address] [place], [place] 2587603-05-2025 18:25-0500 Systolic blood egekbhaq905 mm[Hg]Dayron Cervantes MD Work Phone: [phone])722-[address] [place], [place] 2587603-05-2025 17:25-0500 Inhaled oxygen flow rate0 L/minDayron Cervantes MD Work Phone: [phone]03-05-2025 17:20-0500 Body xgjjjhkruos49 [degF]Dayron Cervantes MD Work Phone: [phone] [place], [place] 2587603-05-2025 14:49-0500 Body rbtemn843.26 cmDayron Cervantes MD Work Phone: [facility]03-05-2025 14:49-0500 Body awgora791.69 kgDayron Cervantes MD Work Phone: [facility]02-27-2025 08:52-0500 Body vgmbeb716.3 cmPaul Biedenbach DO Work Phone: [facility] HospitalFysxmfrghw72-21-3537 08:52-0500Body mass index (BMI) [Ratio]32.49 kg/m2Paul Biedenbach DO Work Phone: [facility] HospitalOwjrlxgsxq58-54-2535 08:52-0500Body iynnbr54.79 kgPaul Biedenbach DO Work Phone: [facility] HospitalIgqksvrhsz95-50-4745 16:17-0500Diastolic blood xarpkpbl10 mm[Hg]Arjun Chung MD Work Phone: [facility] HospitalNlmdztrhxh90-88-6240 16:17-0500Systolic blood mimmhupm311 mm[Hg]Arjun Chung MD Work Phone: [facility] HospitalTztwefxkca19-21-8236 13:15-0500Body temperature 97.16 [degF]Micaela IRELAND [facility]01-27-2025 13:15-0500Diastolic blood mosxuldw02 mm[Hg]Micaela IRELAND [facility]01-27-2025 13:15-0500Heart rate84 /minPaoscar IRELAND [facility]01-27-2025 13:15-0500Systolic blood purgmwvk601 mm[Hg]Micaela IRELAND [facility] [place] [address]-16-2025 09:35-0500Body jaenpz394.3 cmDayron Cervantes MD Work Phone: [facility] HospitalKberkpceyi21-03-8635 09:35-0500Body mass index (BMI) [Ratio]32.49 kg/m2Dayron Cervantes MD Work Phone: [facility] HospitalPdgzuqlnet39-86-5796 09:35-0500Body temperature 97.3 [degF]Dayron Cervantes MD Work Phone: [facility] HospitalLrbolgluuc18-25-5931 09:35-0500Body xkbayq67.79 kgDayron Cervantes MD Work Phone: [phone] HospitalFmegspwwap42-29-9512 09:35-0500Diastolic blood uzuqpvlh01 mm[Hg]Dayron Cervantes MD Work Phone: [facility] HospitalBrsafodszg14-02-0659 09:35-0500Heart rate93 /min Dayron Cervnates MD Work Phone: [facility] HospitalNectdwahxj10-64-9931 09:35-0500Respiratory rate20 /minDayron Cervantes MD Work Phone: [facility] HospitalZxpddqoyvz22-54-4490 09:35-8020LkQ2% (BldA) [Mass fraction]97 %Dayron Cervantes MD Work Phone: [facility] HospitalUfuthhwsqe27-55-6085 09:35-0500Systolic blood cxmdkrwo414 mm[Hg]Dayron Cervantes MD Work Phone: [facility] HospitalWfdgwbqmfo92-81-1894 09:01-0500Body .3 cmDayron Cervantes MD Work Phone: [facility] HospitalYmbruzlgkb52-84-2454 09:01-0500Body mass index (BMI) [Ratio]33.67 kg/m2Dayron Cervantes MD Work Phone: [facility] HospitalMnxvheluxj15-84-7225 09:01-0500Body temperature 97.11 [degF]Dayron Cervantes MD Work Phone: [facility] HospitalFojirffjtw51-80-3766 09:01-0500Body fjekrl944.42 kgDayron Cervantes MD Work Phone: [facility] HospitalJlfcipeuwr90-37-1800 09:01-0500Diastolic blood ledkyewt54 mm[Hg]Dayron Cervantes MD Work Phone: [facility] HospitalPsmuwoxyza43-43-2849 09:01-0500Heart rate78 /min Dayron Cervantes MD Work Phone: [facility] HospitalSkzokvvhmb86-93-0548 09:01-0500Respiratory rate20 /minDayron Cervantes MD Work Phone: [facility] HospitalArxbitxmlw02-53-1985 09:01-2180CcU6% (BldA) [Mass fraction]95 %Dayron Cervantes MD Work Phone: [facility] HospitalEoisepgvgt58-30-5568 09:01-0500Systolic blood mm[Hg]Dayron Cervantes MD Work Phone: [facility] HospitalHenlzfzocl25-70-0075 10:18-0400Body tsypvz337.3 cmAnthocorwin Rusher DPM Work Phone: [facility] HospitalZzzpbtxsrl81-57-5475 10:18-0400Body mass index (BMI) [Ratio]33.23 kg/k6Sobnbce Rusher DPM Work Phone: [facility] HospitalWybebwpjlc99-82-3196 10:18-0400Body dniywc423.06 kgAnthony Rusher DPM Work Phone: [facility] HospitalEkkklugnqp71-00-3657 10:14-0400Body nfwvae386.[address]07-16-2024 10:14-0400Body mass index (BMI) [Ratio] 32.93 kg/m[address]07-16-2024 10:14-0400Body gbejtn443.[address] [place], [place] 6195505-01-2024 09:14-0400Body rskolu922.26 cmPA Dayron Cervantes Work Phone: [facility]05-01-2024 09:14-0400 Body mass index (BMI) [Ratio]33.5 kg/m2MD Dayron Jhon Work Phone: [facility]05-01-2024 09:14040 Body .02 kgMD Dayron Estesmehran Work Phone: [facility] Encounters Encounter DateEncounter TypeCare ProviderFacilityStart: 01-20-2025 End: 19-57-3557horbapreeaAYOC ALMASSIFacility:[facility] HospitalStart: 01-13-2025 End: 00-26-4882slzxldedqcYZOD A NADERERFacility:[facility]: 01-12-2025 End: 19-94-2612nntmaqqlwoBIYYJ Faye PETITTINot AvailableStart: 01-12-2025 End: 87-98-1208Exqdhz outpatient visit 15 minutesEmmayiln Moss MD Work Phone: [facility] [place] DermatologyComment on above:Seborrheic keratosis (Primary Dx); History of basal cell carcinoma; History of SCC (squamous cell carcinoma) of skin; Lentigines; Seborrheic keratosis, inflamedStart: 01-09-2025 End: 32-36-9616ucehadcoujOPIYTIOHX SHMELTERFacility:[facility] Start: 62-45-0880Adgokglhb for other preprocedural examinationMARC JHON [facility] CenterStart: 01-09-2025 End: 04-59-4427josasuljgaLOBJVFV CAMPBELLFacility:[facility] Start: 01-06-2025 End: 21-40-6056wacjprsmnfHYED A NADERERFacility:[facility]: 12-30-2024 End: 51-21-4932yybsxhbentUILH RAJANFacility:[facility]: 12-30-2024 End: 20-43-9549nfalwjhizpKQLBP ABHYANKARFacility:[facility]: 12-21-2024 End: 43-32-4260wfpsvzjibzHBSQ ALMASSIFacility:[facility] HospitalStart: 28-51-8909brtzmqxnzyAUQNBC ROODFacility:[facility]: 12-07-2024 End: 72-32-7587dmovvbfckqGgoi Naderer MD Work Phone: [facility] Work Phone: Start: 12-07-2024 End: 31-01-7291Bjwxevd encounter [facility]un [facility] Work Phone: Start: 11-24-2024 End: 89-80-2328Qhigxnoml encounterArianne Stockton MD Work Phone: Hematology/OncologyComment on above:OrdersStart: 10-31-2024 End: 77-98-6482Oazqrxc encounter procedureSpaulino Real MD Work Phone: Radiation OncologyComment on above: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 Dx)Start: 10-31-2024 End: 15-34-2382rmjfxewugyIOCB RAJANFacility:[facility]: 10-19-2024 End: 84-20-2214zelgrjebqmBKAI A NADERERFacility:[facility]: 10-19-2024 End: 50-39-9566Scgqvmjnq Result EncounterGeneric External Data ProviderNOMS External Department UnsolicitedStart: 10-19-2024 End: 59-42-1942Phuvmbwut Result EncounterGeneric External Data ProviderNOMS External Department UnsolicitedStart: 10-13-2024 End: 06-81-1633Pavpuypsj encounterReac Marsh RN Work Phone: Hematology/OncologyComment on above:Care Coordination (Urinary Symptoms)Start: 10-03-2024 End: 28-03-8531Vqgfekzqo Result EncounterGeneric External Data ProviderNOMS External Department UnsolicitedStart: 10-03-2024 End: 06-93-0680Wqxcnvpke Result EncounterGeneric External Data ProviderNOMS External Department UnsolicitedStart: 10-03-2024 End: 75-10-1068Womytqw encounter procedureSpaulino Real MD Work Phone: Radiation OncologyStart: 10-03-2024 End: 65-64-4805Tiqjfurfq Oncology NoteSpaulino Real MD Work Phone: Radiation OncologyComment on above:Completion Note Start: 10-03-2024 End: 75-87-4535Vhavjj outpatient visit 25 minutesMindi Ireland APRN.CNP Work Phone: Hematology/OncologyComment on above:Urinary tract infection without hematuria, site unspecified (Primary Dx); 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); Dysuria; Chemotherapy-induced fatigue; Malignant neoplasm of urinary bladder, unspecified site (HCC); Urinary frequency; Radiation cystitisStart: 10-03-2024 End: 71-97-9599Uzfhclu evaluation of patient and reportNurse Wiliam Taylor Work Phone: Radiation OncologyComment on above:OPENED IN ERROR (Primary Dx)Start: 10-03-2024 End: 21-75-8876fxpuyjjuejDDaquan JOSUEacility:[facility] Start: 09-30-2024 End: 18-99-4003Zldiqex evaluation of patient and reportNurse Wiliam Taylor Work Phone: Radiation OncologyComment on above: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 Dx)Start: 09-30-2024 End: 19-67-7294bbmwbsolvrHDaquan JOSUEacility:[facility] Start: 09-29-2024 End: 55-21-2065iletsabthfMREF A NADERERFacility:[facility]: 09-28-2024 End: 80-12-8429Ijxzbca encounter procedureG Wade Smith MD Work Phone: Radiation OncologyComment on above: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 Dx)Start: 09-28-2024 End: 01-27-3814eableeafecIDaquan JOSUEacility:[facility] Start: 09-27-2024 End: 59-98-2118atfutktsxeRJIH A NADERERFacility:[facility] HospitalStart: 09-26-2024 End: 44-78-6250Eurnjxhij Result EncounterGeneric External Data ProviderNOMS External Department UnsolicitedStart: 09-26-2024 End: 71-60-3055Gwxbjxymp Result EncounterGeneric External Data ProviderNOMS External Department UnsolicitedStart: 09-26-2024 End: 36-81-1216Ouglfih evaluation of patient and reportMa Nurse Ananda Reyez Work Phone: Hematology/OncologyComment on above:Urinary tract infection without hematuria, site unspecified (Primary Dx)Start: 09-26-2024 End: 33-86-9731zqjgvsutibBpglh [address] [place] Work Phone: Hematology/OncologyComment on above: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 Dx)Start: 09-26-2024 End: 96-99-4681Bcoxwp outpatient visit 25 minutesMinchad Jeong PA-C Work Phone: Hematology/OncologyComment on above: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 Dx); DysuriaStart: 09-26-2024 End: 03-02-4505pzgotrfgnqXDVKR M MUSSERFacility:[facility]art: 09-23-2024 End: 72-39-4699ztkztspbjwLQUF A NADERERFacility:[facility]: 09-22-2024 End: 01-61-0845tltzgecbgsNPAD A NADERERFacility:[facility]: 09-21-2024 End: 39-30-7825Tyndbum encounter Raquel Real MD Work Phone: Radiation OncologyComment on above: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 Dx)Start: 09-21-2024 End: 42-46-5731kjyuiioiqyMKAJ RAJANFacility:[facility]: 09-20-2024 End: 28-36-9414nairabtaszWINZ A NADERERFacility:[facility]: 09-19-2024 End: 74-16-2920Gligcrbsl Result EncounterGeneric External Data ProviderNOMS External Department UnsolicitedStart: 09-19-2024 End: 30-59-2693Closootba Result EncounterGeneric External Data ProviderNOMS External Department UnsolicitedStart: 09-19-2024 End: 36-47-7788Udioogm encounter procedureNataly Monson APRN.CNP Work Phone: Hematology/OncologyStart: 09-19-2024 End: 96-50-4582thlifagtnoAtrik [address] Work Phone: Hematology/OncologyComment on above: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 Dx)Start: 09-15-2024 End: 79-30-4218Zjwpnmtou encounterSpaulino Real MD Work Phone: Radiation OncologyComment on above:FYI-No Action NeededStart: 09-15-2024 End: 31-55-4681Taosvix evaluation of patient and reportNurse Wiliam Taylor Work Phone: Radiation OncologyComment on above: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 Dx)Start: 09-15-2024 End: 49-74-7173nubpoyjqhkPAZJ RAJANFacility:[facility]tart: 09-14-2024 End: 28-68-0985Fnnfsquqr encounterNataly Monson APRN.CNP Work Phone: Hematology/OncologyComment on above:Lab OrdersStart: 09-14-2024 End: 47-11-9616Yqdeezu encounter procedureSpaulino Real MD Work Phone: Radiation OncologyComment on above: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 Dx)Start: 09-14-2024 End: 77-76-1959zcbwuzlbhbSVIH RAJANFacility:[facility]: 09-13-2024 End: 13-62-8560rmmjrfbyyvZHPU A NADERERFacility:[facility]: 09-12-2024 End: 10-50-4033Wyjzegtid Result EncounterGeneric External Data ProviderNOMS External Department UnsolicitedStart: 09-12-2024 End: 10-18-4379Cduqihdaq Result EncounterGeneric External Data ProviderNOMS External Department UnsolicitedStart: 09-12-2024 End: 33-90-8860Qjkqtw-up encounterMindi Ireland APRN.CNP Work Phone: Hematology/OncologyComment on above:Care Coordination (INR)Start: 09-12-2024 End: 58-50-8381Nxfpwl outpatient visit 25 minutesMindi Ireland APRN.CNP Work Phone: Hematology/OncologyComment on above: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 Dx); Encounter for antineoplastic chemotherapy; Chemotherapy-induced fatigueStart: 09-12-2024 End: 73-17-8337pujseugtoeSgcdx Brendan ReyezHouston Work Phone: Hematology/OncologyComment on above: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 Dx)Start: 09-12-2024 End: 28-89-8896fzlgkintsgEHON A NADERERFacility:[facility]art: 09-09-2024 End: 13-37-2592Ypalzkmnj encounterMartha Marsh RN Work Phone: Hematology/OncologyComment on above:Care Coordination (C1D1 Post Treatment Call)Start: 09-09-2024 End: 83-31-9531jwrylzfrwcKATP A NADERERFacility:[facility]: 09-08-2024 End: 01-87-5911Msajmvtdb encounterMindi Ireland APRN.CNP Work Phone: Hematology/OncologyComment on above:Lab OrdersStart: 09-08-2024 End: 13-29-3119Hmmwzdd encounter Raquel Real MD Work Phone: Radiation OncologyComment on above: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 Dx)Start: 09-08-2024 End: 59-75-6417uvwaokvlwbVTSY RAJANFacility:[facility]: 09-07-2024 End: 12-84-0171skohamfyouLVLB A NADERERFacility:[facility]: 09-06-2024 End: 98-24-0569hfcakstyvlSLVM A NADERERFacility:[facility]: 09-05-2024 End: 55-70-2403Htpac Lena Villatoro RN Work Phone: Hematology/OncologyComment on above:Research (IRB 15- 1580 [id number] Informed Consent)Start: 09-05-2024 End: 23-29-0166Btowsqwji Result EncounterGeneric External Data ProviderNOMS External Department UnsolicitedStart: 09-05-2024 End: 27-87-0168Raggjokjv Result EncounterGeneric External Data ProviderNOMS External Department UnsolicitedStart: 09-05-2024 End: 63-77-3263Rtazbqpce encounterMindi Ireland APRN.CNP Work Phone: Hematology/OncologyComment on above:Lab OrdersStart: 09-05-2024 End: 36-31-0366Okiwpv outpatient visit 25 minutesMindi Ireland APRN.CNP Work Phone: Hematology/OncologyComment on above: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 Dx); Encounter for antineoplastic chemotherapy; FCI (current) use of 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Start: 09-05-2024 End: 90-61-7675bgxblzyjzzSslck [address] [place] Work Phone: Hematology/OncologyComment on above: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 Dx)Start: 09-05-2024 End: 42-78-5375Hdzknxm encounter procedureG Wade Smith MD Work Phone: Radiation OncologyComment on above: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 Dx)Start: 09-02-2024 End: 60-18-8258Rabyrc Ryder Cervantes MD Work Phone: [facility] FMStart: 09-02-2024 End: 29-73-8084Mwpbos flowsheetDayron Cervantes MD Work Phone: noms [facility] FMStart: 09-02-2024 End: 57-41-2513Hzinihx encounter procedureDayron Cervantes MD Work Phone: [facility] Work Phone: Start: 09-02-2024 End: 27-08-7525Vtbvwx follow up visit related to original pxDayron Cervantes MD Work Phone: [facility]oms C[facility] FMComment on above:Medicare annual wellness visit, subsequent (Primary Dx); 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); Venous insufficiencyStart: 09-02-2024 End: 64-16-2912vpyeimhmauJMVL NADERERNot AvailableStart: 08-26-2024 End: 07-10-3328Zwslcj flowsheetPaul S Biedenbach DO Work Phone: noms ENT SANDUSKYStart: 08-26-2024 End: 17-17-7685Tmslrp flowsheetPaul S Biedenbach DO Work Phone: [facility] ENT SANDUSKYStart: 08-26-2024 End: 49-88-6760feplbxgyghFMEA S BIEDENBACHNot AvailableStart: 08-26-2024 End: 67-94-5948Cxbfov outpatient visit 15 minutesPaul S Biedenbach DO Work Phone: noms ENT SANDUSKYComment on above:Mohs defect of mormon region (Primary Dx); 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Start: 08-18-2024 End: 24-68-0047Blwwdqwln Oncology Ben Real MD Work Phone: Radiation OncologyComment on above:Simulation Note Treatment PlanningStart: 08-18-2024 End: 16-11-5832Sxcaozv encounter procedureCcf ProviderAv[facility] DepartmentComment on above:Urothelial cancer (HCC) (Primary Dx)Start: 08-18-2024 End: 49-80-3033Ubqyslh evaluation of patient and reportNurse Wiliam Taylor Work Phone: Radiation OncologyComment on above:Urothelial cancer (HCC) (Primary Dx)Start: 08-18-2024 End: 17-81-4184kapvjbsweyPwreyvx Sessler RN Work Phone: Hematology/OncologyComment on above:First Time Treatment Education (Cisplatin)Start: 08-17-2024 End: 31-13-7755Ughgabqjv encounterSpaulino Real MD Work Phone: Radiation OncologyComment on above:AppointmentStart: 08-16-2024 End: 83-26-1041Abafnvijh encounterMartha Marsh RN Work Phone: Hematology/OncologyComment on above:Care Coordination (Antiemetics)Start: 08-11-2024 End: 28-92-5709Vcavmuafv Result EncounterGeneric External Data ProviderNOMS External Department UnsolicitedStart: 08-11-2024 End: 92-73-0011Mfccqgbrh Result EncounterGeneric External Data ProviderNOMS External Department UnsolicitedStart: 08-11-2024 End: 85-16-4980Ltnfgnbsp encounterSpaulino Real MD Work Phone: Radiation OncologyComment on above:Future Appointment (Schedule Simulation)Start: 08-11-2024 End: 93-49-1695Zmnclwo encounter procedureSpaulino Real MD Work Phone: Radiation OncologyComment on above:Urothelial cancer (HCC) (Primary Dx); 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)Start: 08-11-2024 End: 70-98-0913atpytpkfknItbzfi Weyer RNRadiation OncologyComment on above: Patient EducationStart: 08-11-2024 End: 13-81-9589Rewbhdxzzp hospital visit by physicianArrival Time Radiology Work Phone: Radiology Pet CTComment on above: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) [C67.9]Start: 08-10-2024 End: 65-16-2892Jlxcfa outpatient visit 40 minutesArianne Stockton MD Work Phone: Hematology/OncologyComment on above: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)Start: 08-10-2024 End: 93-45-7139svfljnpkdsMWKXC ABHYANKARFacility:[facility] HospitalStart: 08-10-2024 End: 58-91-1198Yajrutvuf encounterArianne Stockton MD Work Phone: Cancer Appts MCComment on above:AppointmentStart: 08-04-2024 End: 71-73-8897hhqmzzzdnbDTUAEE NIZAMFacility:[facility]tart: 07-29-2024 End: 14-76-9391Yonphv flowsheetPaul S Biedenbach DO Work Phone: noms ENT SANDUSKYStart: 07-29-2024 End: 52-07-5953Hcuhrx flowsheetPaul S Biedenbach DO Work Phone: n[facility] ENT SANDUSKYStart: 07-29-2024 End: 66-55-1325Omvjot outpatient visit 15 minutesPaul S Biedenbach DO Work Phone: noms ENT SANDUSKYComment on above: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)Start: 07-29-2024 End: 77-00-3561wsxqmiylgxDVFV S BIEDENBACHNot AvailableStart: 07-26-2024 End: 70-50-4718Fgsdxlrgc encounterMidiamond Cerda Research CoordinatorUrologyStart: 07-25-2024 End: 06-75-2078poopznamvnEbtm Almassi MD Work Phone: UrologyComment on above:Biopsy resultsStart: 07-25-2024 End: 14-15-6671P-mail encounter from Josefina Hernández MD Work Phone: UrologyStart: 07-18-2024 End: 42-93-1507Jhaiyhipz Result EncounterGeneric External Data ProviderNOMS External Department UnsolicitedStart: 07-18-2024 End: 55-34-1938Djclfsarl Result EncounterGeneric External Data ProviderNOMS External Department UnsolicitedStart: 07-18-2024 End: 79-40-6605njhvgpjquwEHOH ALMASSIFacility:[facility]tart: 07-11-2024 End: 48-60-3630Jjkfnzvnl Result EncounterGeneric External Data ProviderNOMS External Department UnsolicitedStart: 07-11-2024 End: 86-81-9345Uozmvtyrp Result EncounterGeneric External Data ProviderNOMS External Department UnsolicitedStart: 07-11-2024 End: 10-59-2457Xmjzolgucpucm examination doneDo[facility] Work Phone: [facility] Work Phone: Start: 07-11-2024 End: 73-33-8907Vdoeta OnlyNicole [place] TELESCOPE OPERATOR.RAILROAD TRACK INSPECTOR Work Phone: UrologyComment on above:Malignant neoplasm of urinary bladder, unspecified site (HCC) [C67.9]Pre-op evaluation (Primary Dx); Prediabetes; Medical marijuana use; Former smoker; Personal history of DVT (deep vein thrombosis); Pulmonary fibrosis (HCC); Benign hypertension; Hypercholesterolemia; Gastroesophageal reflux disease, unspecified whether esophagitis present; History of SCC (squamous cell carcinoma) of skin; History of basal cell carcinoma (BCC)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 Dx)Start: 07-08-2024 End: 88-74-6277njlyrhwylsDALQ A NADERERFacility:[facility]art: 07-08-2024 End: 54-99-8251Eghsua outpatient visit 15 minutesDat France DO Work Phone: NOMS ENT SANDUSKYComment on above: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)Start: 07-08-2024 End: 63-49-1002zfdxvvgofpEROD S BIEDENBACHNot AvailableStart: 07-07-2024 End: 48-88-3351Unvdfj flowsheetArjun Chung MD Work Phone: noms SWS DERMStart: 07-07-2024 End: 52-90-6015Unkpsh flowsheetArjun Chung MD Work Phone: noms SWS DERMStart: 07-07-2024 End: 14-08-8460Ezmimkg encounter procedureThmario Chung MD Work Phone: noms SWS DERMComment on above: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)Start: 07-07-2024 End: 46-38-5447qiniaklbopBUGWLL E FLEMINGNot AvailableStart: 07-06-2024 End: 21-37-9874qsarjyhzzaTWSN ALMASSIFacility:[facility]: 06-28-2024 End: 75-63-3854Apuorm flowsheetEmmaylin Moss MD Work Phone: NOSM SWS DERMStart: 06-28-2024 End: 82-13-4111Qupvoo flowsheetLena Moss MD Work Phone: noms SWS DERMStart: 06-28-2024 End: 54-83-0543Ankvpyw encounter procedureEmmaylin Moss MD Work Phone: noms SWS DERMComment on above:Neoplasm of unspecified behavior of bone, soft tissue, and skin (Primary Dx)Start: 06-28-2024 End: 25-84-9463hlidgxtonsJICIH Faye ESPINOZAINopuma AvailableStart: 06-23-2024 End: 38-38-4327Lptqat flowsheetPaul S Biedenbach DO Work Phone: noms ENT SANDUSKYStart: 06-23-2024 End: 75-61-0920Lyqmrf flowsheetPaul S Biedenbach DO Work Phone: noms ENT SANDUSKYStart: 06-23-2024 End: 29-97-2694Voswwj follow up visit related to original pxPaul S Biedenbach DO Work Phone: noms ENT SANDUSKYComment on above:Mohs defect of mormon region (Primary Dx)Start: 06-23-2024 End: 12-37-7883nymjevtukwVNVK S BIEDENBACHNot AvailableStart: 06-20-2024 End: 70-86-3593jwgkxkhdzmYcwyxae R WATERSFacility:EU BellevueStart: 06-09-2024 End: 29-46-9757sxgmrlwpqoZagacvy R WATERSFacility:[facility] BellevueStart: 06-02-2024 End: 05-98-3473fkxqtqgqoaFndm Naderer MD Work Phone: [facility] Work Phone: Start: 06-02-2024 End: 84-31-8318Wtwfybmd ReferredDayron Cervantes MD Work Phone: [facility]-LAB Path Spec Emeka HospStart: 06-02-2024 End: 58-60-5427mmfpewcikiLlzrnxv R WATERSFacility:CD:[id number]: 05-31-2024 Preoperative statePaul Biedenbach DO Work Phone: noms HealthcareStart: 05-31-2024 End: 69-33-4679yumzhajscjYOCP NADERERNot AvailableStart: 05-25-2024 End: 28-50-9241Jiyxzf follow up visit related to original pxBenjamin W Murcek DO Work Phone: noms ENT SANDUSKYComment on above:Mohs defect of mormon region (Primary Dx)Start: 05-25-2024 End: 66-38-2319bvulxunwbdGOQMJVBN W MURCEKNot AvailableStart: 05-25-2024 End: 45-65-4704Ioftim flowsheetBenjamin W Murcek DO Work Phone: n[facility] ENT SANDUSKYStart: 05-25-2024 End: 76-97-4506Bbivls flowsheetBenjamin W Murcek DO Work Phone: n[facility] ENT SANDUSKYStart: 05-24-2024 End: 43-37-3286Ulazennmd Result EncounterGeneric External Data ProviderNOMS External Department UnsolicitedStart: 05-24-2024 End: 45-16-2231Uccabrucg Result EncounterGeneric External Data ProviderNOMS External Department UnsolicitedStart: 05-18-2024 End: 08-80-3269Ldqhfbmvc to same day surgery centerDayron Cervantes MD Work Phone: [facility]Start: 05-18-2024 End: 52-10-4375reynrgmdolBcyp Naderer MD Work Phone: [facility] Work Phone: Start: 05-16-2024 End: 18-51-1604dslglyqqmiVeilppy R WATERSFacility:CD:[id number]: 05-13-2024 End: 07-85-4634Kpsrzllt Result EncounterPaul S Biedenbach DO Work Phone: noms External Department UnsolicitedStart: 05-13-2024 End: 31-34-4869Nmizwump Result EncounterPaul S Biedenbach DO Work Phone: noms External Department UnsolicitedStart: 05-13-2024 End: 81-62-5185Lkpjszu encounter procedureDayron Cervantes MD Work Phone: [facility] Djh-Srq-Ehxpilfw Testing Work Phone: Start: 05-13-2024 End: 45-78-8721sltvwzyitdCcln Naderer MD Work Phone: [facility] Work Phone: Start: 64-38-5778Atscnqwas for preprocedural laboratory examinationPaul SalimaHCA [facility] Physician GroupStart: 05-12-2024 End: 26-30-6845Tfrmhb flowsheetPaul S Biedenbach DO Work Phone: [facility] ENT SANDUSKYStart: 05-12-2024 End: 01-88-3192Hadinl flowsheetPaul S Biedenbach DO Work Phone: n[facility] ENT SANDUSKYStart: 05-12-2024 End: 89-50-8109Jijtss outpatient new 45 minutesPaul S Biedenbach DO Work Phone: noms ENT SANDUSKYComment on above:Mohs defect of forehead (Primary Dx)Start: 05-12-2024 End: 47-99-7052xliqhaqskjYWYC S BIEDENBACHNot AvailableStart: 05-10-2024 End: 03-38-3463Jhpnfwt encounter procedureArjun Chung MD Work Phone: NOUG SWS DERMComment on above:Basal cell carcinoma (BCC) of left mormon region (Primary Dx); Skin neoplasmStart: 05-10-2024 End: 62-28-8009phknmnscnrGZQSGO E FLEMINGNot AvailableStart: 04-19-2024 End: 64-59-2441Iyodknlky Result EncounterGeneric External Data ProviderNOMS External Department UnsolicitedStart: 04-19-2024 End: 01-80-3499Bbvammwzd Result EncounterGeneric External Data ProviderNOMS External Department UnsolicitedStart: 04-11-2024 End: 34-18-9896hritydlcydImuwvmp R WATERSFacility:FTMCStart: 04-11-2024 End: 11-22-7844Fuz Drop offMicaela IRELAND [facility] Start: 04-11-2024 End: 52-67-0959eigtrutuwnDZJA NADERERFacility:EU BellevueStart: 04-11-2024 End: 74-72-6627Kmglddw encounter procedureMicaela IRELAND [facility] start: 03-31-2024 End: 97-78-9423Yojzefjayson Cervantes MD Work Phone: NOMS CWM FMStart: 03-31-2024 End: 27-02-4325Eughyi flowsLandy Cervantes MD Work Phone: NOUY CWM FMStart: 03-31-2024 End: 57-38-3567Axtllxxyu Result EncounterDayron Cervantes MD Work Phone: noms External Department UnsolicitedStart: 03-31-2024 ambulatoryDAYRON NADERERFacility:EU [place]kyStart: 03-31-2024 End: 72-62-7109Fxbsha outpatient visit 15 minutesDayron Cervantes MD Work Phone: NOVN CWM FMComment on above:Gross hematuria (Primary Dx); PrediabetesStart: 03-31-2024 End: 91-91-4320srglxzjkpaCZAS NADERERNot AvailableStart: 03-19-2024 End: 08-56-6887yljfjrxnsqLlns Naderer MD Work Phone: [facility] Work Phone: Start: 03-19-2024 End: 97-16-1798Djhlkjqr ReferredDayron Cervantes MD Work Phone: [facility]-LAB Path Spec [place] HospStart: 02-24-2024 End: 71-52-4139Nxegqf Ryder Cervantes MD Work Phone: NORR CWM FMStart: 02-24-2024 End: [id number] flowsLandy Cervantes MD Work Phone: [facility] FMStart: 02-24-2024 End: [id number] encounter Josh IRENE Work Phone: [facility] DERMComment on above:Neoplasm of unspecified behavior of bone, soft tissue, and skin (Primary Dx)Start: 02-24-2024 End: [id number] NORTHEIMNot AvailableStart: 02-24-2024 End: 24-04-2359Axuedz outpatient visit 25 minutesDayron Cervantes MD Work Phone: [facility] FMComment on above:Benign hypertension (CMS/HCC) (Primary Dx); Bilateral primary osteoarthritis of hip; Spinal stenosis of lumbar region with radiculopathy; PVC (premature ventricular contraction)Start: 02-24-2024 End: 70-73-6663ncaxmhejexGLFW NADERERNot AvailableStart: 02-23-2024 End: 44-90-7637Mojfmvhcf Result EncounterDayron Cervantes MD Work Phone: noms External Department UnsolicitedStart: 02-23-2024 End: 89-53-2467Bwrjsccux Result EncounterDayron Cervantes MD Work Phone: noms External Department UnsolicitedStart: 02-09-2024 End: 19-62-6554Aaxtev [facility] PA Work Phone: NOMS SWS DERMStart: 02-09-2024 End: 60-64-2778Vwsthm [facility] PA Work Phone: NOMS SWS DERMStart: 02-09-2024 End: 73-74-0769Tsnsfn outpatient new 30 minutesRyHarry S. Truman Memorial [facility] PA Work Phone: NOMS SWS DERMComment on above:Neoplasm of skin (Primary Dx); Seborrheic keratosis; Actinic keratosisStart: 02-09-2024 End: 48-19-1137ruosygfbayHDACK NORTHMNot AvailableStart: 01-27-2024 End: 19-21-9930Glvpolvis Result EncounterDayron Cervantes MD Work Phone: noms External Department UnsolicitedStart: 01-27-2024 End: 98-79-7651Vdmbaypcc Result EncounterDayron Cervantes MD Work Phone: noms External Department UnsolicitedStart: 12-16-2023 End: 30-29-7789Nsvcng flowsheetJose Yen DPM Work Phone: noms PODIATRYStart: 12-16-2023 End: 26-20-0374Eofzcj flowsWilla Yen DPM Work Phone: noms PODIATRYStart: 12-16-2023 End: 59-14-2883Ewiadgsfo Result EncounterDayron Cervantes MD Work Phone: noms External Department UnsolicitedStart: 12-16-2023 End: 13-88-7628Gxwope outpatient new 30 minutesJose Yen DPM Work Phone: noms PODIATRYComment on above:Hammer toe of right foot (Primary Dx); History of DVT (deep vein thrombosis)Start: 11-25-2023 End: 98-00-5978Ypjkts flowsheetSammantha Omer PTNOMS CI PTStart: 11-25-2023 End: 99-25-9318Nswzsr flowsheetSammantha Omer PTNOMS CI PTStart: 11-25-2023 End: 25-62-1369utroskoxmxTtdqcjida Omer PTNOMS CI PTComment on above: Bilateral primary osteoarthritis of hip (Primary Dx); Spinal stenosis, unspecified spinal regionStart: 11-11-2023 End: 28-17-7863Hncifq flowsheetSammantha Omer PTNOMS CI PTStart: 11-11-2023 End: 21-87-5158Qxlwrv flowsheetSammantha Omer PTNOMS CI PTStart: 11-11-2023 End: 81-81-1445bpdxppvanzMphokgvut Omer PTNOMS CI PTComment on above: Bilateral primary osteoarthritis of hip (Primary Dx); Spinal stenosis, unspecified spinal regionStart: 11-05-2023 End: 30-87-0118Cqywnj flowsheetSammantha Omer PTNOMS CI PTStart: 11-05-2023 End: 68-37-9940Qvymezapf Result EncounterDayron Cervantes MD Work Phone: noms External Department UnsolicitedStart: 11-05-2023 End: 39-07-2523Wxdocjtyt Result EncounterDayron Cervantes MD Work Phone: NOOR External Department UnsolicitedStart: 11-05-2023 End: 30-13-1702mnsxkhoikgPpaoxtnbv Schneider PTNOMS CI PTComment on above: Bilateral primary osteoarthritis of hip (Primary Dx); Spinal stenosis, unspecified spinal regionStart: 10-20-2023 End: 25-33-5842Fptwkzrlsw and management of inpatientVERN D PATRICIAMount Carmel Health Systemtart: 10-20-2023 End: 45-89-5436Stnunvhyri and management of inpatientSUSAN E Kettering Healthtart: 09-29-2023 End: 23-14-5033Nwtojqr encounter procedurePm Pre-Admission Testing [address] [place] [address] - Pre AdmitComment on above:Preop examination (Primary Dx); AnticoagulatedStart: 09-29-2023 End: 78-37-1848Hkbrmkwurznrj examination donePm[address] Streettart: 09-29-2023 End: 42-48-1734pkhmzgnzvkCEVZD M [facility] Clinictart: 26-35-1290Bxmwbpoat for other preprocedural examinationDATrinity Health System West Campustart: 09-18-2023 End: 75-11-0147Paglwno encounter procedureMD Dayron Cervantes Work Phone: [facility] Work Phone: Start: 09-18-2023 End: 07-34-7667xhvjcsrunkKQ Marc Naderer Work Phone: [facility] Work Phone: Start: 07-23-2023 End: 83-68-3814Bgmcsot encounter procedureMD Dayron Cervantes Work Phone: [facility] Work Phone: Start: 07-23-2023 End: 70-58-2051zkduivgavzQH Marc Naderer Work Phone: [facility] Work Phone: Start: 07-15-2023 End: 93-66-4715vfdbzlddzbNudt NadererFacility:[facility] Start: 07-15-2023 End: 09-81-0697Khvnzhh encounter procedureMD Dayron Cervantes Work Phone: [facility] Work Phone: Start: 07-17-2022 End: 75-02-7687yfyhwcuaciTK DAYRON Mckinney NADERERFacility:Z7Secqf: 06-04-2022 End: 76-80-5953oucjgdhppeCN DAYRON Mckinney NADERERFacility:A5Ujzqx: 04-03-2022 End: 81-61-7914jsapzxvhtgVB DAYRON Mckinney NADERERFacility:U8Gveno: 01-06-2022 End: 00-46-8177btoswqtleoEY DAYRON Mckinney NADERERFacility:F3Jcyjr: 11-27-2021 End: 50-22-6503weifjneatkCPBKCM SAMSA .Facility:A1Epezb: 11-14-2021 End: 79-96-8993cnznigzqzzRA DAYRON Mckinney NADERERFacility:E1Yuhht: 09-09-2021 End: 21-10-2203egrtfdnqpfRS DAYRON Mckinney NADERERFacility:H1 Procedures DateProcedureProcedure DetailPerforming ClinicianStart: 58-71-6934BEJQSPJFIXB SKIN LESIONEmily Faye Moss MD Work Phone: Start: 66-29-5220Cdwsiisg screenMARC NADERERComment on above:Order Comment: Specimen Type: BLOOD SPECIMENOrdering Facility: [facility] Address:[address] [place], [place] [address]Performed By: #### [id number] ####[facility] LABCLIA [id number] [place] [id number] [place] AMERICAStart: 89-01-1022ZGL URINALYSIS COMPLETE PNL URGeneric External Data ProviderStart: 41-22-7353SUF CBC W AUTO DIFF BLDGeneric External Data ProviderStart: 17-14-1176Ympqp dip stick/tablet rgnt auto w/o microscopyCcf ProviderStart: 31-96-2355AKD CBC W AUTO DIFF BLDGeneric External Data ProviderStart: 48-44-7578RYZ CBC W AUTO DIFF BLD Generic External Data ProviderStart: 01-89-4593KLD COMP METAB 1999 PNL SERPL Generic External Data ProviderStart: 75-42-7982SDY CBC W AUTO DIFF BLDGeneric External Data ProviderStart: 86-96-8433QHA COMP METAB 1999 PNL SERPLGeneric External Data ProviderStart: 09-28-6510CHJ CBC W AUTO DIFF BLDGeneric External Data ProviderStart: 91-91-7539Ko thorax w/contrast materialGeneric External Data ProviderStart: 50-59-4950GPU CBC W AUTO DIFF BLDGeneric External Data Provider Start: 56-08-5268Pwlfq count complete auto&auto difrntl wbcArianne Stockton MD Work Phone: Start: 23-99-1286HNIE PATH BX REPORTGeneric External Data ProviderStart: 02-56-7089RWO PELVIS BLADDER WO/W IVCONGeneric External Data ProviderStart: 05-24-0171Zekushzx screenMARC NADERERComment on above:Order Comment: Specimen Type: BLOOD SPECIMENOrdering Facility: [facility] Address:[address] [place], [place] [address]Performed By: #### [id number] ####CC MAIN BLOOD BANKCLIA [id number] [place] [address] [place] AMERICAStart: 29-86-3488PCL APTT PPPGeneric External Data ProviderStart: 43-97-5195QQF PT PNL PPPGeneric External Data ProviderStart: 98-83-7096FRPV SURGERYThmario Chung MD Work Phone: Start: 83-01-6587VCGE / NAIL BIOPSYEmmaylin Moss MD Work Phone: Start: 73-29-8723JNQ CBC WITH AUTO DIFFGeneric External Data ProviderStart: 79-54-0336Wnlfhpdc of lesion of cheekDayron Cervantes MD Work Phone: Start: 45-54-1533Immxv metabolic panel calcium total Dat Whitney France DO Work Phone: start: 06-91-5595Zdrwbxuh blood count with white cell differential, automatedPasb France DO Work Phone: start: 85-41-2184AUXP SURGERYThomas E Jade CROCKETT Work Phone: Start: 25-77-1929GF ABDOMEN PELVIS WO/W CONGeneric External Data ProviderStart: 97-30-2972Heuqo dip stick/tablet rgnt non-auto w/o micrscpMarc Jhon CROCKETT Work Phone: Start: 66-92-5396Uhldirwldn glycosylated o6gMqugDayron Cervantes MD Work Phone: Start: 85-62-9695Fvbrqxdi identified in Urine by Lolis Cervantes MD Work Phone: Start: 74-28-7359Whbks Lolis Cervantes MD Work Phone: Start: 22-83-5945JURE / NAIL BIOPSYRylee Abran IRENE Work Phone: Start: 65-57-4096FQICXV PROTHROMBIN TIME INR W/O COUM Dayron Cervantes MD Work Phone: Start: 16-91-7080EVVKJG PROTHROMBIN TIME INR W/O VALENTINA Cervantes MD Work Phone: Start: 60-54-9138CKDXYF PROTHROMBIN TIME INR W/O VALENTINA Cervantes MD Work Phone: Start: 94-89-2550KPHEDB PROTHROMBIN TIME INR W/O VALENTINA Cervantes MD Work Phone: Start: 48-82-2013N-ray of lumbar spine, six views including bending viewsMD Dayron Cervantes Work Phone: Start: 73-60-1599XP lumbar spine wo conMD Dayron Cervantes Work Phone: Start: 71-19-8593F-ray of lumbar spine, four viewsMD Dayron Cervantes Work Phone: Start: 41-80-8499Czzgs x-ray of pelvis and lower extremityMD Dayron Cervantes Work Phone: Plan of Treatment DateCare ActivityDetailAuthorStart: 67-60-9752OTbN,Tdap and Td Vaccines (2 - Td or Tdap)DTaP,Tdap and Td Vaccines (2 - Td or Tdap)[facility] SystemStart: 76-71-1549Xlrumoab ScreeningDiabetes ScreeningSamaritan North Health Centertart: 09-27-2027 Diabetes ScreeningDiabetes ScreeningSamaritan North Health Centertart: 72-50-3448Cnhizjyl ScreeningDiabetes ScreeningSamaritan North Health Centertart: 17-82-2043Meugzncb Screening Diabetes ScreeningSamaritan North Health Centertart: 55-63-1810Okmucjrw ScreeningDiabetes ScreeningSamaritan North Health Centertart: 90-92-4963Evbwltgl ScreeningDiabetes Screening [facility] Centertart: 20-12-0664Ksijtgug ScreeningDiabetes ScreeningSamaritan North Health Centertart: 32-38-1357Zdqeatas ScreeningDiabetes ScreeningAvita Health System [facility] Start: 14-91-4013Ygxetpxpi for malignant neoplasm of colonNOOR HealthcareStart: 06-20-2026Medicare Annual Wellness (AWV)Medicare Annual Wellness (AWV)[facility] HealthcareStart: 07-13-2025 End: 45-08-0014Esbtjqt encounter hcatprgnb24/30/2026 10:20 AM EDT Office Visit [facility] [address] [place] [id number] Lena Moss MD [address] [place] [address] [facility]ermatologyStart: 07-11-2025 Creatinine measurementSerum CreatinineClebethesda north hospital ClinicStart: 02-28-2026 Creatinine measurementSerum CreatinineCleKettering Health Daytontart: 01-12-2025 End: 94-61-5783Grdmjyr encounter procedureNOMS SWS DERMStart: 01-05-2025 End: 43-35-5801Kivnanq encounter vursdzjlo37/23/2025 9:00 AM EDT Office Visit [facility]S SWS DERM [address] [place] [phone] Lena Moss MD [address] [place] [address] NOMS SWS DERMStart: 01-03-2025 End: 22-70-8783PI Abdomen and Pelvis W contrast IVCT ABD/PEL W IVCON Radiology Routine Malignant neoplasm of urinary bladder, unspecified site (HCC) Expected: 01/03/2025 (Approximate), Expires: 11/02/2025[facility] Work Phone: Comment on above:Expected: 01/03/2025 (Approximate), Expires: 11/02/2025Start: 01-03-2025 End: 77-51-2887NP Chest W contrast IVCT CHEST W IVCON Radiology Routine Malignant neoplasm of urinary bladder, unspecified site (HCC) Expected: 01/03/2025 (Approximate), Expires: 11/02/2025[facility] HospitalComment on above: Expected: 01/03/2025 (Approximate), Expires: 11/02/2025Start: 12-30-2024 End: 17-93-1603sagmfhnldx32/17/2025 3:00 PM EDT Visit (SP) Office Hematology/Oncology [address] [place], [place] [phone] Mindi Ireland, KALEB.RAILROAD TRACK INSPECTOR [address] [place] [address] Okay Per Nataly To ScheduleHematology/OncologyComment on above:Okay Per Nataly To ScheduleStart: 12-30-2024 End: 95-72-6549Qayhpzd encounter ampurgtmp22/17/2025 2:00 PM EDT Office Visit Radiation Oncology [address] [place] [address] Trevon Real MD [address] [place] [address] follow upRadiation OncologyComment on above:follow upStart: 12-30-2024 End: 49-14-9958Wczwcz-up hqvwuhlpp18/17/2025 1:20 PM EDT Visit (SP) Office Hematology/Oncology [address] [place] [address] [address] [place], [place] [phone] Arianne Stockton MD [address] [place] [address] [address] and labHematology/OncologyComment on above:follow up after ct and labStart: 12-26-2024 End: 45-62-9330Lvsefj-up uobqqorzb80/13/2025 10:20 AM EDT Visit (SP) Office Hematology/Oncology [address] [place] [address] [place] [address] Arianne Stockton MD [address] [place] [address] [address] and labHematology/OncologyComment on above:follow up after ct and labStart: 12-21-2024 End: 98-11-0142Pmuwnbg encounter uwhnjfqbe79/08/2025 11:15 AM EDT Office Visit Urology [address] [address] Babak Hernández MD [address] [place] [address] cysto UrologyComment on above:cystoStart: 12-19-2024 End: 69-17-1348ITR W Auto Differential panel - BloodCOMPLETE BLOOD COUNT AND DIFFERENTIAL Lab Routine 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) Expected: 12/19/2024 (Approximate), Expires: 03/20/20[facility] Comment on above:Expected: 12/19/2024 (Approximate), Expires: 03/20/2025Start: 12-19-2024 End: 54-26-1259Keippugczpybv metabolic 2000 panel - Serum or PlasmaCOMPREHENSIVE METABOLIC PANEL Lab Routine 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) Expected: 12/19/2024 (Approximate), Expires: 03/20/2025[facility] Work Phone: Comment on above:Expected: 12/19/2024 (Approximate), Expires: 03/20/2025Start: 12-19-2024 End: 57-55-3371Kqqwbst encounter eukumrkjl78/06/2025 7:45 AM EDT Appointment Radiology Pet CT [address] [place] [address] CT CAP with contrast and labRadiology Pet CTComment on above:CT CAP with contrast and lab Start: 12-07-2024 End: 59-09-9405Dlthlnq encounter ewjdkfsmm30/24/2025 8:15 AM EDT Office Visit [facility] [address] [place] [address] Dayron Cervantes MD [address] [place] [address] [facility] FMStart: 13-73-6950CRDHW-19 Vaccine ( season)COVID-19 Vaccine ( season)[facility] HospitalStart: 20-70-1100Qkmhcagto vaccinationInfluenza Vaccine (#1)[facility] Centertart: 10-31-2024 End: 72-87-3633Pexidqz encounter oxeyobhhv40/18/2025 10:30 AM EDT Office Visit Radiation Oncology [address] [place] [address] Trevon Real MD [address] [place] [address] Final radiation follow upRadiation OncologyComment on above:Final radiation follow upStart: 10-17-2024 End: 06-44-1863Skqsbwd encounter rtvwmgyze97/04/2025 8:15 AM EDT Office Visit [facility] [address] [place] [address] labNortAscension Borgess [facility] Hospital LaboratoryComment on above:labStart: 42-58-9485Uwpwv-19 Vaccine ( season)Covid-19 Vaccine ()[facility] Centertart: 10-14-2024 End: 18-12-2619Dnerufzddc complete panel - UrineURINALYSIS (WITH MICROSCOPIC) WITH CULTURE IF INDICATED Lab Routine Dysuria Expected: 10/14/2024, Expires: 01/13/2025[facility] Work Phone: Comment on above:Expected: 10/14/2024, Expires: 01/13/2025Start: 10-03-2024 End: 10-19-7699Ndbfkw-up unssebxqy03/21/2025 10:00 AM EDT Visit (SP) Office Hematology/Oncology [address] [place] [address] Mindi Ireland APRN.RAILROAD TRACK INSPECTOR [address] [place] [address] 1 week follow up labs, no treatmentHematology/OncologyComment on above:1 week follow up labs, no treatmentStart: 10-03-2024 End: 96-95-4522Fnmuxmk evaluation of patient and dfjwgo2210/03/2024 9:30 AM EDT Nurse Visit Radiation Oncology [facility] [place] [address] [place], Nurse Radt [address] [facility] [place] [address] Nurse visitRadiation OncologyComment on above:Nurse visitStart: 10-03-2024 End: 15-65-7517Gblqzwq encounter procedureRadiation OncologyComment on above: BLADDER- emptyBLADDER- empty when arrives \T\ right b4 tx per SAR1 week follow up labs, no treatmentBLADDER-emptywhenarrives\T\right v1wkcozTLR lab@987vuzcz90 Start: 09-30-2024 End: 76-43-8867Wdagkzf evaluation of patient and oqusma1409/30/2024 9:30 AM EDT Nurse Visit Radiation Oncology [address] [place] [address] [place], Nurse Radt [address] [place] [address] Follow up on FlomaxRadiation OncologyComment on above:Follow up on Flomax Start: 09-30-2024 End: 73-76-6291Nxckzbb encounter procedureRadiation OncologyComment on above: BLADDER- emptyBLADDER- empty when arrives \T\ right b4 tx per SARStart: 09-29-2024 End: 05-03-5232Juzaqmt encounter procedureRadiation OncologyComment on above: BLADDER- emptyBLADDER- empty when arrives \T\ right b4 tx per SARStart: 09-28-2024 End: 62-10-1735Rapgxee encounter procedureRadiation OncologyComment on above: BLADDER- emptyBLADDER- empty when arrives \T\ right b4 tx per SARLocation: SA-ON TREATMENT REVStart: 09-27-2024 End: 45-67-3768Lbepkpv encounter procedureRadiation OncologyComment on above: BLADDER- emptyBLADDER- empty when arrives \T\ right b4 tx per SARStart: 09-26-2024 End: 65-45-2769Dzdgfscf identified in Urine by CultureAvita Health System Galion HospitalComment on above:Expected: 09/26/2024, Expires: 12/26/2024Start: 09-26-2024 End: 63-70-9373GHA W Auto Differential panel - BloodCOMPLETE BLOOD COUNT AND DIFFERENTIAL Lab Routine 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) Expected: 09/26/2024, Expires: 12/26/2024[facility] Work Phone: Comment on above:Expected: 09/26/2024, Expires: 12/26/2024Start: 09-26-2024 End: 34-60-1957Vydijrnoyrgoc metabolic 2000 panel - Serum or PlasmaCOMPREHENSIVE METABOLIC PANEL Lab Routine 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) Expected: 09/26/2024, Expires: 12/26/2024[facility] ClinicComment on above:Expected: 09/26/2024, Expires: 12/26/2024Start: 09-26-2024 End: 87-39-4373Nsjygendl [Mass/volume] in Serum or PlasmaMAGNESIUM Lab Routine 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) Expected: 2024, Expires: 12/26/2024[facility] ClinicComment on above:Expected: 09/26/2024, Expires: 12/26/2024Start: 09-26-2024 End: 52-85-8158Fqkuys-up encounterHematology/OncologyComment on above:1 week lab follow up and chemotx weekly Cisplatin w/ XRTStart: 09-26-2024 End: 96-37-7287Ietxzax encounter procedureRadiation OncologyComment on above: BLADDER- emptyNO ORDERSBLADDER- empty when arrives \T\ right b4 tx per [facility] BLADDER- empty at arrival \T\ right b4 tx, medonc starts 830Start: 09-23-2024 End: 97-86-8887Iqvgivh encounter procedureRadiation OncologyComment on above: BLADDER- emptyBLADDER- empty when arrives \T\ right b4 tx per SARStart: 09-22-2024 End: 39-90-8961Zptyvrl encounter procedureRadiation OncologyComment on above: BLADDER- emptyBLADDER-empty when arrives and right b4 tx per RajanStart: 09-21-2024 End: 42-97-2948Oqfufrh encounter procedureRadiation OncologyComment on above: BLADDER- emptyLocation: SA-ON TREATMENT REVBLADDER- empty when arrives and right b4 tx per RajanStart: 09-20-2024 End: 69-78-6862Vscjhix encounter procedureRadiation OncologyComment on above: BLADDER- emptyBLADDER- empty when arrives and right b4 tx per RajanStart: 09-19-2024 End: 50-59-4663Abzzpx-up encounterHematology/OncologyComment on above:1 week lab follow up and chemotx weekly Cisplatin w/ XRTStart: 09-19-2024 End: 65-17-0947Fkfymgr encounter procedureRadiation OncologyComment on above: BLADDER- empty1 week lab follow up and chemotx weekly Cisplatin w/ XRTNO ORDERS BLADDER- empty- seeing nataly at 1030Start: 09-15-2024 End: 17-63-9955Fbnjvrs encounter procedureRadiation OncologyComment on above: BLADDER- emptyBLADDER- empty when arrives and right b4 tx per RAJANStart: 09-14-2024 End: 59-30-5243MOA W Auto Differential panel - BloodCOMPLETE BLOOD COUNT AND DIFFERENTIAL Lab Routine 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) Expected: 09/14/2024, Expires: 12/14/2024[facility] Work Phone: Comment on above:Expected: 09/14/2024, Expires: 12/14/2024Start: 09-14-2024 End: 75-00-7739Axhwoqgtoarkj metabolic 2000 panel - Serum or PlasmaCOMPREHENSIVE METABOLIC PANEL Lab Routine 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) Expected: 09/14/2024, Expires: 12/14/2024levelatrium health [facility] ClinicComment on above:Expected: 09/14/2024, Expires: 12/14/2024Start: 09-14-2024 End: 47-46-5033Hpciife encounter procedureRadiation OncologyComment on above: BLADDER- emptyLocation: SA-ON TREATMENT REVStart: 09-13-2024 End: 90-80-2960Qpmrpux encounter poxstriav46/01/2025 9:15 AM EDT Appointment Radiation Oncology [address] [place] [address] [place] [address] BLADDER- emptyRadiation OncologyComment on above:BLADDER- emptyStart: 09-12-2024 End: 87-29-7424Zzcbyo-up encounterHematology/OncologyComment on above:1 week lab follow up and chemotx weekly Cisplatin w/ XRTStart: 09-12-2024 End: 07-76-0794Sqvipmr encounter procedureRadiation OncologyComment on above: BLADDER- empty1 week lab follow up and chemotx weekly Cisplatin w/ XRTBLADDER- empty- 10am appt with Duyart: 09-09-2024 End: 71-85-7608Kjlzlxn encounter /27/2025 9:15 AM EDT Appointment Radiation Oncology [address] [place] [address] BLADDER- emptyRadiation OncologyComment on above:BLADDER- emptyStart: 09-08-2024 End: 33-41-0792WGL W Auto Differential panel - BloodCOMPLETE BLOOD COUNT AND DIFFERENTIAL Lab Routine 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) Expected: 09/08/2024, Expires: 12/08/2024[facility] Work Phone: Comment on above:Expected: 09/08/2024, Expires: 12/08/2024Start: 09-08-2024 End: 01-94-6240Cpfgxvihjsvrp metabolic 2000 panel - Serum or PlasmaCOMPREHENSIVE METABOLIC PANEL Lab Routine 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) Expected: 09/08/2024, Expires: 12/08/2024levelatrium health [facility] ClinicComment on above:Expected: 09/08/2024, Expires: 12/08/2024Start: 09-08-2024 End: 80-31-4175Fmbbsrm encounter fnasinhgx77/26/2025 9:15 AM EDT Appointment Radiation Oncology [address] [place] [address] BLADDER- emptyRadiation OncologyComment on above:BLADDER- emptyStart: 09-07-2024 End: 48-96-2694Ekysxoj encounter paayfcugg54/25/2025 9:30 AM EDT Appointment Radiation Oncology [address] [place] [address] BLADDER- emptyRadiation OncologyComment on above:BLADDER- emptyStart: 09-06-2024 End: 65-94-7072Tzvvewc encounter rroamihpt28/24/2025 10:15 AM EDT Appointment Radiation Oncology [address] [place] [address] BLADDER- emptyRadiation OncologyComment on above:BLADDER- emptyStart: 09-05-2024 End: 24-90-2354XG panel - Platelet poor plasma by Coagulation assayPROTHROMBIN TIME Lab Routine 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) Expected: 09/05/2024, Expires: 12/05/2024[facility] Work Phone: Comment on above:Expected: 09/05/2024, Expires: 12/05/2024Start: 09-05-2024 End: 76-15-8598Ozhwqk-up encounterHematology/OncologyComment on above:lab follow up and chemotx weekly Cisplatin w/ XRTStart: 09-05-2024 End: 49-41-4660Hbjthtj encounter procedureRadiation OncologyComment on above:NEW START, PelvisNEW START, Pelvis pt prefers early am, concurrent chemolab follow up and chemotx weekly Cisplatin w/ XRTNEW START, Pelvis pt prefers early am, chemo AFTERStart: 09-02-2024 End: 05-20-1677Pslsiox encounter procedureNOMS CWM FMComment on above:Arrived Start: 08-26-2024 End: 55-79-7515Wgbbyuh encounter zpizcmvmg17/13/2025 10:15 AM EDT Office Visit NOMWhitney [place] [address] [place] [address] Dat France DO [address] [facility] [place] [address] SON CÁRDENASYStart: 08-18-2024 End: 75-51-7893Vpsksqs encounter procedureRadiation OncologyComment on above:SIM BLADDER - IV \T\ ORAL, NEEDS CONSENTPre Sim ConsentStart: 08-18-2024 End: 34-01-5136Megciau evaluation of patient and reportHematology/Oncology Comment on above:[id number]- LVM for Patient to call back and Confirm appt date and timeStart: 08-16-2024 End: 38-52-6880Kspgllj encounter dohuetzgy19/03/2025 8:30 AM EDT Appointment Radiology [address] [place] [address] 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) [C67.9 (ICD-10-CM)]Radiology Comment on above: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) [C67.9 (ICD-10-CM)]Start: 07-18-2024 End: 66-38-8695Eeslgsdxx to same day surgery centerAdmittingComment on above: CYSTOSCOPY, BIOPSY BLADDERStart: 07-18-2024 End: 68-65-8387Rycjpaabbcududgrc with biopsy MAIN PAVILIONStart: 07-18-2024 Subsequent hospital visit by physicianAdmittingComment on above:Malignant neoplasm of urinary bladder, unspecified site (HCC) [C67.9]Start: 07-18-2024 End: 23-49-6225IG Chest W contrast IVCT CHEST W IVCON Radiology STAT 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) Expected: 07/18/2024, Expires: 08/10/2025[facility] Work Phone: Comment on above:Expected: 07/18/2024, Expires: 08/10/2025Start: 07-13-2024 End: 70-09-1452Qebtoqvcrb A1c in [facility] Work Phone: Comment on above:Expected: 07/13/2024, Expires: 10/12/2024Start: 07-08-2024 End: 09-14-0958Lqhxcyx encounter /25/2025 9:00 AM EDT Office Visit [facility] [place] [address] [place] [phone] Dat France DO [address] [place] [address] [facility] ENT SANDUSKYStart: 07-07-2024 End: 32-08-4255Yhlrmiz encounter rkiqnpvqh95/24/2025 1:45 PM EDT Office Visit [facility] [address] [place] [phone] Arjun Chung MD [address] [place] [address] ArrivedNOMS SWS DERMComment on above:ArrivedStart: 01-10-8147Lmmmb-19 Vaccine ( season)Covid-19 Vaccine ( season)[facility]art: 06-28-2024 End: 27-76-1454Gaoprgl encounter procedureNOMS SWS DERMComment on above:Arrived Start: 06-23-2024 End: 76-14-1551Ndjcyqa encounter procedureNOMS ENT SANDUSKYComment on above: ArrivedStart: 06-06-2024 End: 14-59-8402Zyraptf encounter gaknxokch89/24/2025 1:30 PM EDT Office Visit [facility] [address] [place] [address] Lena Moss MD [address] [place] [address] [facility] SWS DERMStart: 05-26-2024 End: 12-17-0075Nlbpflu encounter koedwxqsm30/13/2025 10:30 AM EDT Office Visit [facility] [address] [place] [address] Dayron Cervantes MD [address] [place] [address] [facility] CWBhavana FMStart: 05-25-2024 End: 81-12-2504Bsqqstr encounter procedureNOMS ENT SANDUSKYComment on above: ArrivedStart: 42-37-8844ZvmhqahueMercy Health Clermont Hospitaltart: 05-18-2024 End: 92-76-4395Wqmjhjz encounter /05/2025 9:30 AM EST Office Visit [facility] CWBhavana FM [address] [place] [address] Dayron Cervantes MD [address] [place] [address] [facility] CWM FMStart: 05-12-2024 End: 99-80-5527Jxijegi encounter procedureNOMS ENT SANDUSKYComment on above: ArrivedStart: 05-10-2024 End: 49-03-0877Tbjowdd encounter yyuqlndmn40/25/2025 1:30 PM EST Office Visit [facility] [address] [place] [address] Arjun Chung MD [address] [place] [address] [facility] SWS DERMStart: 03-31-2024 End: 25-43-8220Bhtjujc encounter xafcgawfm34/16/2025 9:30 AM EST Office Visit [facility] [address] [place] [address] Dayron Cervantes MD [address] [place] [address] ArrivedNOMS CWM FMComment on above:ArrivedStart: 74-21-5247Zpizjscl identified in Urine by CultureUrine [facility] Start: 61-88-8495XobmyOhioHealth Riverside Methodist Hospitaltart: 03-16-2024 Advance Directive DiscussionAdvance Directive DiscussionSamaritan North Health Centertart: 02-24-2024 End: 58-91-6562Cxcuonc encounter procedureNOMS CWM FMComment on above:Arrived Start: 02-09-2024 End: 47-49-6715Cqyjfuf encounter odeyclzee75/26/2024 2:00 PM EST Office Visit [facility] [address] [place] [address] Karolina Osullivan PA [address] [place] [address] [facility] SWS DERMStart: 12-16-2023 End: 56-10-5132Xoxboyq encounter procedureNOMS FH PODIATRYComment on above: ArrivedStart: 11-25-2023 End: 21-19-4589mectmudwhvLJBB CI PTComment on above:ArrivedStart: 11-19-2023 End: 12-30-1573wdhhzeffag34/05/2024 10:30 AM EDT Treatment [facility] [address] [place] [address] Staci Omer, PTNOMS CI PTStart: 82-95-5549Pxdhzgqnk vaccinationMS HealthcareStart: 11-11-2023 End: 59-65-3673zwfamlgcdj69/28/2024 9:30 AM EDT Treatment [facility] [address] [place] [address] Staci Omer, PTNOMS CI PTStart: 10-20-2023 End: 18-93-6886Slemzvmje to same day surgery xmolzw0710/20/2023 3:00 PM EDT - 10/20/2023 4:00 PM EDT Surgery [facility] - Surgery [address] [place] [address] Catarina Frausto MD [address] [place] [address] [phone] BLEPHAROPLASTY [97441 (CPT )][facility] SurgeryComment on above: BLEPHAROPLASTY [15401 (CPT )]Start: 10-20-2023 End: 71-44-7425Xfcokqeybndklh upper eyelidBLEPHAROPLASTY bilateral ptosis 10/20/2023 3:00 PM EDTFREMONT SURGERYStart: 45-61-6209Iakwfmubqn hospital visit by utazsmacb06/06/2024 3:00 PM EDT Hospital Encounter [facility] - Surgery [address] [place] [address] Catarina Frausto MD [address] [place] [phone] [facility] - SurgeryStart: 10-20-2023 End: 99-07-0264Rnpjzqf & INRProtime & INR Lab Routine Preop examination Anticoagulated Expected: 10/20/2023, Expires: 09/28/2024[facility] Work Phone: Comment on above:Expected: 10/20/2023, Expires: 09/28/2024Start: 70-02-5325Nggseuefm for malignant neoplasm of colonSamaritan North Health Centertart: 40-37-1240CGAEC-19 Vaccine ()COVID-19 Vaccine ()[facility] SystemStart: 40-11-7526GFwE/Tdap/Td Vaccines (2 - Tdap)DTaP/Tdap/Td Vaccines (2 - Tdap)[facility] HospitalStart: 50-00-1222Wwcah microalbumin profileDTaP,Tdap,Td Vaccine (1 - Tdap)[facility] Centertart: 01-01-5990Gybj Risk ScreeningFall Risk ScreeningBlowing Rock Hospitaltart: 05-01-2016Medicare Annual Wellness VisitMedicare Annual Wellness VisitSamaritan North Health Centertart: 52-58-6663Imhvgiqdq for malignant neoplasm of colonAvita Health [facility] Start: 43-54-8521Tinjh panelLipid ScreeningSamaritan North Health Centertart: 1968 Adult BMI ScreeningAdult BMI ScreeningBlowing Rock Hospitaltart: 1968 Annual PCP Team Chronic Disease VisitAnnual PCP Team Chronic Disease Visit [facility]ertart: 73-05-4236Aglsyep ScreeningAnxiety ScreeningSamaritan North Health Centertart: 55-07-3037EQ Controlled (<130/80)BP Controlled (<130/80)[facility] Centertart: 87-69-9364Lknqagjobr ScreeningDepression ScreeningAvita Health System [facility] Hospital Start: 96-97-1030Ingexqkdx C screeningHepatitis C ScreeningAvita Health System Galion Hospital Start: 72-09-6257baDU Controlled (<130/80) (Retired)zzBP Controlled (<130/80) (Retired)[facility] Centertart: 74-20-7489Ainchkgsxn ScreeningDepression ScreeningBlowing Rock Hospitaltart: 10-38-2535Goctcdk ScreeningTobacco ScreeningBlowing Rock Hospitaltart: 63-95-1477Yajjkwsri aortic aneurysm screeningAbdominal Aortic Aneurysm ScreeningSamaritan North Health Centertart: 06-01-1951 Medicare Annual Wellness (AWV)Medicare Annual Wellness (AWV)[facility] Start: 06-01-1951Medicare Annual Wellness VisitMedicare Annual Wellness Visit [facility] DGSE [facility] Hospitaltart: 58-97-6842Pgfbdrcbv for malignant neoplasm of colonNOMS HealthcareComprehensive metabolic 2000 panel - Serum or Plasma [facility] HospitalCT Guidance for radiation treatment of Unspecified body regionCT SIM PLANNING RADIATION ONCOLOGY Radiology Routine Urothelial cancer (HCC) Ordered: 08/11/2024[facility] Work Phone: Comment on above:Ordered: 08/11/2024T Guidance for radiation treatment of Unspecified body regionCT SIM PLANNING RADIATION ONCOLOGY Radiology Routine Urothelial cancer (HCC) Ordered: 08/18/2024[facility] Work Phone: Comment on above:Ordered: 08/18/2024Dermatopathology examDermatopathology exam Pathology and Cytology Timed Neoplasm of unspecified behavior of bone, soft tissue, and skin Release Upon Ordering for 1 Occurrences starting 02/24/2024[facility] [employer] Work Phone: comolpz on above:Release Upon Ordering for 1 Occurrences starting 02/24/2024ermatopathology examDermatopathology exam Pathology and Cytology Timed Neoplasm of unspecified behavior of bone, soft ti ssue, and skin Release Upon Ordering for 1 Occurrences starting 06/28/2024[facility] [employer] Work Phone: comwttx on above:Release Upon Ordering for 1 Occurrences starting 06/28/2024MR Pelvis WO and W contrast IVMRI PELVIS BLADDER WO/W IVCON Radiology Routine 07/11/2024 7:42 [facility] Work Phone: Patient EducationKnow your [facility] Work Phone: Patient referralOhio State Harding Hospital Ctr Work Phone: UA DIP, URINE (POC)UA DIP, URINE (POC) Lab Routine 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) Dysuria Ordered: 09/26/2024[facility] HospitalComment on above:Ordered: 09/26/2024[facility] Immunizations Immunization DateImmunizationNotesCare FcyrmmcnIgktbpoe73-23-2519OADG-OIQ-2 (COVID-19) vaccine, mRNA, spike protein, LNP, PF, patricia-sucrose, 30 mcg/0.3 mL Dat France DO Work Phone: [facility] HospitalBlpsfbqwbi43-96-2917Yfdjjsdl trivalent influenza vaccine, adjuvanted, preservative freePaul Bimaria dolores DO Work Phone: [facility] HospitalTmyygfqldq89-43-5625gktcbcqld virus vaccine, unspecified formulationBeaumont Hospitalfroy Monson APRN.RAILROAD TRACK INSPECTOR Work Phone: [facility] HospitalHrbder56-43-1709eptjbc vaccine recombinant Dat France DO Work Phone: [facility] HospitalRognmooyay89-45-4501sqjspu vaccine recombinant Dat France DO Work Phone: [facility] HospitalBzousndopb10-45-0837Qcotnjiddndx Conjugate PCV 20 Dat France DO Work Phone: [facility] HospitalCzttmoyziy63-62-7813JOK, recombinant, protein subunit RSVpreF, adjuvant reconstitu, 120mcg/0.5mL, PF (Arexvy)Dat France DO Work Phone: [facility] HospitalRzogduvkad18-35-6446YMFFI-18 (PFIZER) 12Y and olderMarc Jhon CROCK[address]T Work Phone: [facility]10-12-2023Influenza, Seasonal, Quadrivalent, AdjuvantedPaul Biedenara DO Work Phone: [facility] HospitalIxtanqjjrk12-58-1036wyiqxhpxy virus vaccine, unspecified formulation[address]09-18-2023pneumococcal conjugate 20-valent (Prevnar 20) 0.5 ML vaccineSammantdanielle Omer [facility] HospitalXdpcolwgxc27-03-3478Bnrcbpukb, High-dose Seasonal, Quadrivalent, Preservative FreePaul Biedenara DO Work Phone: [facility] HospitalRhvvtiuzrd82-57-1237CQVYP-22 mRNA Bivalent Booster (Moderna)Dayron Cervantes MD Work Phone: [facility]04-11-2022COVID-19 mRNA-1273 (Moderna)Dayron Cervantes MD Work Phone: [phone] [place], [place] 6[address]1410-23-2021COVID-19 mRNA-1273 (Moderna)Dayron Cervantes MD Work Phone: [phone] [place], [place] 2587603-12-2021COVID-19 mRNA-1273 (Moderna)Dayron Cervantes MD Work Phone: [phone] [place], [place] 6291402-12-2021COVID-19 mRNA-1273 (Moderna)Dayron Cervantes MD Work Phone: [phone]07-05-2019tetanus and diphtheria toxoids, adsorbed, preservative free, for adult use (5 Lf of tetanus toxoid and 2 Lf of diphtheria toxoid)Dat France DO Work Phone: [facility] HospitalEtlthjvymn71-42-3753nwrorfwcq, high dose seasonal, preservative-freePaul [facility] DO Work Phone: [facility] HospitalNpgntfxssj74-60-4729yxybsryuxvya conjugate vaccine, 13 valentPaul Bienmiddlesex [facility] DO Work Phone: [facility] HospitalTphlfngblm43-10-8714kdhosokdm, seasonal, injectablePaul [facility] DO Work Phone: [facility] HospitalVhnqcwklqo06-62-6402hugxthjjj virus vaccine, unspecified formulationPaul Biedenmiddlesex hospital DO Work Phone: [facility] HospitalTrokvobees17-47-1520vdjdsraim, injectable, quadrivalent, preservative freeTnul [facility] DO Work Phone: [facility] Payers DatePayer CategoryPayerPolicy [id number] Health [id number] [id number] 2016Medicare [id number] [id number] 1960 [id number] 2.16.840.1.174507.3.579.2.593 [id number] 2.16.840.1.258284.3.579.[id number] 2.16.840.1.393179.3.57[id number] 2.16.840.1.040749.3.579.[id number] 2.16.840.1.779755.3.57[id number] 2.16.840.1.652221.3.579.2.12177-99-3551Kwtixxt2265224 2.16.840.1.643565.3.579.2.58058-05-4127Irfjcye71417701 2.16.840.1.413327.3.579.2.6[id number] 2.16.840.1.509707.3.579.2.044278-00-4498Bfdwpqr93631556 2.16.840.1.830647.3.579.2.365859-98-8351Grblipm44306010 2.16.840.1.997184.3.579.2.3[id number] 2.16.840.1.034039.3.579.2.755554-09-4231Jkykcuq39048900 2.16.840.1.803256.3.579.2.72101-19-6116Oihofcy70711489 2.16.840.1.392476.3.579.2.20607-08-8423Udhurnr26372336 2.16.840.1.177144.3.579.2.95209-10-0981Ihirage94395161 2.16.840.1.208080.3.579.[id number] 2.16.840.1.047079.3.579.[id number] 2.16840.1.010416.3.579.[id number] 2.16.840.1.386896.3.57[id number] 2.16.840.1.115882.3.579.2.572790-93-3816Kfkybsv16216199 2.16.840.1.272893.3.579.2.157190-98-4367Pndsdac9148084 2.16.840.1.010536.3.579.2.050258-66-9880Rwnbphn7943267 2.16.840.1.407234.3.579.2.261782-23-5875Mcnlazi7587789 2.16.840.1.841445.3.579.2.907122-75-0990Lvstuzo7282127 2.16.840.1.580896.3.579.2.990074-65-9984Uguiddf0143936 2.16.840.1.842304.3.579.2.661918-13-6425Qfytcdz9754609 2.840.1.887712.3.579.2.412973-08-0561Pctgacs2733177 2.840.1.029535.3.579.2.422121-20-9447Bsvvsys4387808 2.0.1.523664.3.579.2.595453-86-6703Ctievhs6947754 2.0.1.059564.3.579.2.125971-16-8740Wilqeme7914327 2.0.1.467756.3.579.2.816166-80-0447Mvtqvfi5765292 2.0.1.601740.3.579.2.391830-48-0278Bqwuzsd1366544 2.0.1.203499.3.579.2.470668-02-8015Tiozsrt6070715 2.840.1.903871.3.579.2.3670Vsvjued17786967 2.840.1.040745.3.579.2.531 Babhfns55996820 2.840.1.661634.3.579.2.639Hlubojl85373891 2.840.1.745657.3.579.2.578Stviabc93895029 2.840.1.287555.3.579.2.531 Bnxmyar47248136 2.840.1.078437.3.579.2.094Goegntw29909617 2.840.1.308694.3.579.2.925Vvkgwwu41519427 2.840.1.451764.3.579.2.531 Social History DateTypeDetailFacilityTobacco smoking status NHISUnknown if ever smokedOhio State Harding Hospital Ctr Work Phone: Start: 36-58-1740Yzz Assigned At BirthMalAdams County Regional Medical Centertart: 03-04-2023 End: 99-81-4029Ccgzfor smoking status NHISNever smoked tobaccoNOMS Healthcare Start: 03-04-2023 End: 39-12-6435Xvucwmj use and exposureSmokeless tobacco non-userNOMS Healthcare Start: 12-16-2023 End: 33-89-7359Ncnrnakam beverage intakeLifetime non-drinker (finding)[facility] HealthcareStart: 12-16-2023 End: 08-60-1554Zxmmtls of Social functionLake Creek ClinicStart: 12-16-2023 End: 62-20-8793Euijfiu use panelFish - [facility] CenterStart: 1950 Sex assigned at birthNot on [facility] CenterTobacco smoking status NHIS Unknown if ever smokedOhio State Harding Hospital Ctr Work Phone: Start: 57-96-6024IsnHjmmffw sex unknown (finding) [facility] Hospitaltart: 04-04-2016 End: 94-24-3889GvdguekupOcckxmeAaigzpdmn ClinicStart: 95-46-8287Nlgwhz identity Identifies as male gender (finding)[facility] SystemStart: 08-24-2023 Sexual orientationHeterosexual (finding)[facility] SystemStart: 05-14-2024 End: 61-15-1702WevFysb (finding)[facility] Hospitaltart: 05-18-2024 End: 30-89-7772Geppjuq smoking status NHISEx-smoker (finding)[facility] Hospitaltart: 11-14-1969 End: 82-24-7814Vllmssj of tobacco useCurrent smokerLake Creek ClinicStart: 11-14-1969 End: 64-98-0397Nuczclq of tobacco useCigarette SmokerLake Creek ClinicStart: 07-11-2024 End: 91-51-2140Ootidrgwu beverage intakeCurrent non-drinker of alcohol (finding) [facility] Goals DatePatient GoalDesired Activity/State Functional Status MismMklkewbeqzAitqioHucyylns23-34-7261Zarwcuc Health Questionnaire 2 item (PHQ- 2) [Reported][facility] HospitalUorbtcsfqi86-53-1771Fcsbsqazju StatusN/AExecutive Urology of [facility] Clinical Notes 09-29-2023 to 01-20-2025 Note Date & NhypHqbdBmdfbhtw57-21-[address] [facility] Center10-31-[address] [facility] Center10-30-2025 History of Present illness Narrative* Lena Moss MD - 01/12/2025 1:20 PM EDT Skin Check Location: Patient requests a full body skin examination Dermatologic history: history of Actinic Keratosis, history of Basal Cell Carcinoma, history of Squamous Cell Carcinoma Last visit: Last skin check first skin check, last office visit 6 months ago ([facility] SCC L Tragus andL Anabaptist) Established patient All pertinent medical history, medications, and allergies were reviewed. General Exam: alert, oriented to person, place, and time, normal affect, well appearing Unaccompanied Scalp, Examined , exam limited by hair Right leg Examined Head, Face Examined , Exam limited by coyle and mustache Left leg Examined Neck Examined Right foot Examined Chest Examined Left foot Examined Back Examined Buttocks Examined Patient kept underwear on Abdomen Examined Digits,nails: Examined Right arm Examined Left arm Examined Lymphatics: Not examined Hands Examined Skin Exam 1. HISTORY OF BASAL CELL CARCINOMA Left Anabaptist No evidence of recurrence at BCC scar. The patient was counseled that scars from excisional sites of nonmelanoma skin cancers should be monitored closely for recurrence. The patient was instructed to contact the office for any new, changing, or symptomatic moles. The patient was also instructed to contact the office for any new lesions that develop within or around the previous surgery scar. 2. HISTORY OF SCC (SQUAMOUS CELL CARCINOMA) OF SKIN Left Tragus No evidence of recurrence at SCC scar. The patient was counseled that scars from excisional sites of nonmelanoma skin cancers should be monitored closely for recurrence. The patient was instructed to contact the office for any new, changing, or symptomatic moles. The patient was also instructed to contact the office for any new lesions that develop within or around the previous surgery scar. 3. SEBORRHEIC KERATOSIS (2) Generalized, Left Medial Thigh Stuck on verrucous, randolph-brown papules and plaques. Patient was counseled regarding these benign growths. Removal is normally not necessary, but they may be removed if they are symptomatic or for cosmetic reasons. 4. LENTIGINES Generalized Scattered randolph macules in sun-exposed areas. The patient was informed that lentigines are benign pigmented lesions that occur on sun-exposed andsun-damaged skin. No treatment is necessary. Recommended regular use of broad spectrum sunscreen SPF 30 or higher 5. SEBORRHEIC KERATOSIS, INFLAMED Right Supraclavicular Area Rhodes and brown stuck on verrucous scaly papule with surrounding erythema The patient was informed that symptomatic seborrheic keratoses are benign growths that become inflamed, itchy, tender, traumatized, caught on clothing, or bleed. Symptomatic lesions can be treated with cryotherapy or curretage. Thicker lesions treated with cryotherapy may require more than one treatment. The patient was instructed to notify the office if abnormal redness or tenderness develops atthe treatment site. Cryotherapy today, see procedure note. Diagnosis: Inflamed seborrheic keratosis Indication: Inflamed Consent: Verbal consent was obtained and risks were discussed, including, but not limited to risks of scarring, darker or customer service dispatcher pigmentary changes, recurrence, incomplete removal and infection. Method: Liquid nitrogen was used to treat the lesion(s) with two 5-10 second freeze-thaw cycles Number of lesions treated: 1 Post-procedure instructions: Instructions were given orally and in writing. The office will be contacted if the lesion fails to resolve despite treatment, or if a side effect develops such as abnormal crusting, scabbing, redness or tenderness - Cryotherapy, skin lesion - Right Supraclavicular Area Next Visit: 6 months documented in this encounterGolden Valley Memorial HospitalDuywhzfkys34-08-4349 [facility]10-17-[address] [facility]10-08-[address] [facility]10-08-2025 [facility]10-08-[address]10-06-[address] [facility]09-11-2025 Telephone encounter Note* Telephone Encounter - Caty Villatoro RN - 11/24/2024 2:28 PM EDT Please sign pended labs for 2 month f/u if agreeable-will draw with CT 1 week prior Thank You! Caty Villatoro RN [facility]09-11-2025 Miscellaneous Notes* Telephone Encounter - Caty Villatoro RN - 11/24/2024 2:28 PM EDT Please sign pended labs for 2 month f/u if agreeable-will draw with CT 1 week prior Thank You! Caty Villatoro RN documented in this encounterAvita Health System [facility] Hospital08-18-[address] John [facility] Center08-18-2025 History of Present illness Narrative* Trevon Real MD - 10/31/2024 10:22 AM EDT Radiation Oncology - Follow Up Note PATIENT NAME: Bill Allen PATIENT DIAGNOSIS/PATIENT IDENTIFICATION: Mr. Allen is a 74-year-old gentleman diagnosed with a [id number] urothelial carcinoma of the bladder status post TURBT on 07/18/[address] Hernández noting high-grade urothelial carcinoma from the posterior bladder wall biopsy. MRI of the pelvis from 07/11/2024 noted the irregular mass along the bladder dome involving the full-thickness of the bladder wall with probable extension into the perivesicular fat and no other pelvic metastatic disease. Staging workup with CT chest abdomen pelvis was negative and he has opted for nonoperative management with concurrent c hemoradiation therapy which he completed on 10/03/2024 (5,500 cGy delivered in 20 fractions with concurrent cisplatin). Mr. Allen returns to clinic today for routine follow-up approximately one month after the completion of his radiation treatments. In the interim, Signed by: Trevon Real MD This document has been created with the use of voice recognition technology. It may contain inaccuracies, misspellings, inaccurate syntax or inappropriate word context that are a result of the inadequacies/shortcomings of said technology/software. documented in this encounterAvita Health System [facility] Hospital08-01-2025 Telephone encounter Note * Telephone Encounter - Martha Marsh RN - 10/14/2024 2:19 PM EDT Pt notified and verbalizes understanding. Reports he seems to be turning the corner. Notes his symptoms seem to be improving. States he is going to wait another day before he decides to try the Pyridium. Pt will call and cancel his appointment on Thursday if his symptoms are resolved by then. Martha Marsh RN [facility] Work Phone: [phone] Miscellaneous Notes* Telephone Encounter - Martha Marsh RN - 10/14/2024 2:19 PM EDT Pt notified and verbalizes understanding. Reports he seems to be turning the corner. Notes his symptoms seem to be improving. States he is going to wait another day before he decides to try the Pyridium. Pt will call and cancel his appointment on Thursday if his symptoms are resolved by then. Martha Marsh RN * Telephone Encounter - Martha Marsh RN - 10/14/2024 8:39 AM EDT Call placed to pt. No answer. Message left requesting call back. Martha Marsh RN * Telephone Encounter - Arianne [place] MD - 10/14/2024 8:25 AM EDT Agree with [place] - see this frequently following treatment - eventually subsides but may need to support with pyridium and abx - let's draw UA * Telephone Encounter - Martha Marsh RN - 10/13/2024 10:27 AM EDT Pt completed XRT/Cisplatin on 09/26. C/o ongoing pain/burning w/ urination. Denies hematuria or cloudy urine. Still having urinary frequency - voiding every hour. Positive UA, but negative culture on 09/26. Pt taking Detrol as prescribed, but notes only minimal improvement since start of drug. Drinking 60- 70 oz of water per day. Yousif/AVANI/DEJA: What would you advise? Martha Marsh RN documented in this encounter[facility] Telephone encounter Note * Telephone Encounter - Martha Marsh RN - 10/14/2024 8:39 AM EDT Call placed to pt. No answer. Message left requesting call back. Martha Marsh RN [facility]08-01-[facility] Telephone encounter Note* Telephone Encounter - Arianne Stockton MD - 10/14/2024 8:25 AM EDT Agree with Layton - see this frequently following treatment - eventually subsides but may need to support with pyridium and abx - let's draw UA [facility]07-31-2025 Telephone encounter Note* Telephone Encounter - Martha Marsh RN - 10/13/2024 10:27 AM EDT Pt completed XRT/Cisplatin on 09/26. C/o ongoing pain/burning w/ urination. Denies hematuria or cloudy urine. Still having urinary frequency - voiding every hour. Positive UA, but negative culture on 09/26. Pt taking Detrol as prescribed, but notes only minimal improvement since start of drug. Drinking 60- 70 oz of water per day. Yousif/AVANI/DEJA: What would you advise? Martha Marsh RN [facility]07-21-2025 Instructions* Patient Instructions* Mindi Ireland APRN.RAILROAD TRACK INSPECTOR - 10/03/2024 10:21 AM EDT We discussed your bladder symptoms: - Continue taking Tamsulosin (Flomax) as prescribed. It may take up to 4 weeks to show full effects. - Start taking Detrol, 1 capsule by mouth daily, to help with overactive bladder and frequency. This prescription was sent to your [facility] pharmacy in [place]. Please pick it up and begin taking it as directed. - Avoid caffeine and spicy foods, as these can irritate your bladder. - Drink plenty of water to help flush your bladder. - Follow up with Dr. Ireland (urology) to schedule your next cystoscopy and urine cytology. These are typically done every 3 months following radiation. Please confirm the timing with Dr. Ireland. We discussed your bowel symptoms: - You mentioned alternating between loose stools and constipation. Continue monitoring your symptoms and let me know if they worsen or persist. We discussed your skin issues: - The skin changes you are experiencing are related to chemotherapy. These should resolve over time. We discussed your recent treatments and follow-up imaging: - You have completed both chemotherapy and radiation. Congratulations on finishing your treatments. - A CT scan of your chest, abdomen, and pelvis will be scheduled for the end of December to monitor your progress. This will be a standard imaging scan, not an MRI. We discussed your lab results: - Your complete blood count (CBC) looks good overall. Your platelets are slightly low, likely due to recent chemotherapy and radiation. This should improve within a couple of weeks. Follow-up instructions: - Call me next week to update me on how you are doing with your bladder symptoms and whether the Detrol is helping. - We will see you back in 3 months for follow-up. At that time, we will review your imaging resultsand discuss your ongoing care plan. If you have any questions or concerns before your next visit, please call our office. documented in this encounterAvita [facility]07-21-2025 History of Present illness Narrative* Mindi Ireland APRN.VICK - 10/03/2024 10:00 AM EDT Images from the original note were not included. NAME: Bill Allen [facility] NO.: [id number] DATE OF SERVICE: October 03, 2024 (Elizabeth) Referring Provider: Lilliam Stein MD Additional Clinicians involved in Bill Allen's care: Dr. 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 He has elected bladder preservation and will proceed with weekly cisplatin +radiation over 4 weeks. SUMMARIZED PLAN: Patient completed weekly Cisplatin x 4 + concurrent radiation 3. Surveillance will entail: cystoscopy, urine cytology, CT C/A/P, and Signatera every 3 months following completion of chemoRT. 4. CT C,A,P due end of December. Follow- up with Dr. Ireland. 6. Will defer flomax consideration to XRT due to Hytrin already prescribed. (Message sent to xrt department). Recommendation is for detrol if no obstructive issues. Continue Detrol ER 2mg daily. AI ASSISTED A/P: 1. Urinary tract infection without hematuria, site unspecified (N39.0) Urine culture was negative, ruling out infection. 2. 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 Scheduled for surveillance cystoscopy and urine cytology every 3 months post-radiation. - Ordered CT scan of chest, abdomen, and pelvis to be performed in 3 months (end of December). - Follow-up with Dr. Ireland for cystoscopy and urine cytology. - Scheduled follow-up appointment in 3 months. 3. 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 Symptoms attributed to recent radiation therapy and cisplatin chemotherapy. - Continue Terazosin. Stop Flomax. - Initiate Detrol, 1 capsule by mouth daily; prescription sent to [facility] pharmacy in [place]. - Advised to avoid caffeine and spicy foods. - Increase water intake to help flush the bladder. - Follow-up with Dr. Ireland for further management. - Patient to call next week to report on symptom improvement. 4. Chemotherapy-induced fatigue (R53.83) Experiencing fatigue post-chemotherapy; CBC shows slightly low platelet count, likely due to recentchemotherapy and radiation. - Expect gradual improvement in fatigue over the coming weeks ____ CASE HISTORY: Reverse Chronological Order 09/05/2024- Started weekly Cisplatin concurrent with radiation. 08/11/2024 CT CHEST: IMPRESSION: 5 mm indeterminate left upper lobe nodule. Continued follow-up is recommended. 07/18/2024 - Cystoscopy with TURBT - Specimen #: [id number]: Dr. Edgar Petersen Urinary bladder, lower posterior wall, biopsy: - Benign urinary bladder tissue with no significant pathologic change. - Negative for dysplasia or malignancy. - Muscularis propria is not present for evaluation. B. Urinary bladder, left lateral wall, biopsy: - Benign urinary bladder tissue with von Brunn nests. - Negative for dysplasia or malignancy. - Muscularis propria is not present for evaluation. C. Urinary bladder, right lateral wall, biopsy: - Benign urinary bladder tissue with partial mucosal denudation and minor chronic inflammation. - Negative for dysplasia or malignancy. - Muscularis propria is present and negative for neoplasm. D. Urinary bladder, dome, biopsy: - Urothelial carcinoma in situ. - No invasion identified (at least pTis). - Muscularis propria is not present for evaluation. E. Urinary bladder, posterior bladder wall, biopsy: - Urothelial carcinoma, papillary and focally invasive, high-grade. - Focal lamina propria invasion is present (at least pT1). - Muscularis propria is not present for evaluation. 07/11/2024 - MRI Pelvis/Bladder: Irregular mass along the bladder dome involving the full-thickness of the bladder wall with probable extension into the superior perivesical fat (at least stage T2, and likely T3 disease), consistentwith known urinary bladder urothelial neoplasm. No pelvic metastatic disease. 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 More diffuse bladder wall thickening, suggestive chronic outlet obstruction. Prostate volume is approximately 42 mL. 06/02/2024 - Cystoscopy with TURBT: Dr. Micaela Ireland cT2 high-grade muscle invasive urothelial carcinoma 04/19/2024 - CT A/P: Bladder contour regularity/filling defect along the dome of the bladder concerning for urothelial neoplasm. Recommend follow-up with urology. Possible bilateral nephrolithiasis. 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 ____ HPI: Updated Visit, October 03, 2024: Patient with a history of bladder cancer, currently managed with cisplatin and radiation therapy, presents with ongoing urinary and gastrointestinal symptoms. Patient completed cisplatin chemotherapy and finished radiation therapy today. He reports significant urinary frequency, urinating approximately 18 times per day with associated burning sensation anddribbling. He has been taking tamsulosin for the past five days but has not started Detrol, which was prescribed last week. A recent urine culture was negative for infection. He is also taking terazosin as part of his regimen. informed patient to stop the flomax since taking the terazosin. Additionally, he experiences alternating episodes of loose stools and constipation, along with abdominal discomfort. He notes skin issues attributed to chemotherapy. Despite these symptoms, he maintains adequate oral intake of food and fluids. He recalls feeling well on the days of chemotherapy, att ributing this to the administration of fluids and steroids. Recent labs show thrombocytopenia, likely secondary to recent chemotherapy and radiation. Updated Visit, September 26, 2024: Bill returns for follow up and his 4th cisplatin weekly with radiation for his muscle invasive bladder cancer. He is still struggling between diarrhea and constipation. He did have a small BM this morning. Urinating about every hour to hour and a half. Feliz has mentioned flomax, however he is already on hytrin. Denies any dizziness upon standing or passing out. He did have an episode of feeling like passing out last week however it resolved. Denies nausea/vomiting. He is eating and drinking well. He denies neuropathy or hearing loss. No hematuria. Updated Visit, September 19, 2024: Patient is currently undergoing radiation therapy and chemotherapy with weekly cisplatin. He reports experiencing constipation last week, followed by diarrhea after taking medication. He has since resumed normal bowel movements and denies any blood in the stool. He also denies any blood in the urine, bleeding, or abnormal bruising. He reports frequent urination approximately every hour, with associated burning sensation and a feeling of incomplete bladder emptying. He denies any nausea or vomiting and manages potential nausea with cannabis. He notes a lack of energy and expresses concern about potential worsening of symptoms with ongoing treatment. Recent labs show a slight elevation in WBC count at 11.33 x 10^9/L (normal 3.7- 11 x 10^9/L). Hemoglobin is within normal limits at 14.4 g/dL (normal 13-17 g/dL), and platelet count is slightly decreased but still within acceptable range for treatment. BUN and creatinine levels are normal, indicating good kidney function. Liver enzymes, including bilirubin, alkaline phosphatase, AST, and ALT, are within normal limits. Electrolytes, including sodium and potassium, are also normal. Patient reports consuming extra fluids for hydration daily. He is scheduled to see his radiation oncologist, Dr. Real, on Thursday. Updated Visit, September 12, 2024: Patient is currently undergoing treatment with cisplatin and radiation therapy. He reports that the first treatment of cisplatin was well-tolerated. He denies experiencing nausea,vomiting, fever, or chills. Appetite remains good, and he is eating well. He initially experienced constipation, which has since resolved. He reports a slight increase in burning sensation during urination over the past week but denies hematuria, fever, or chills. He remains somewhat active, walking around the house and sitting on the porch. He expresses mild nervousness about potential cumulative effects of chemotherapy but is otherwise feeling okay. Recent labs show WBC count, hemoglobin at 14.7 g/dL, and platelets at 204,000/ L, all within normallimits. .Updated Visit, September 05, 2024: Bill presents today with his for consideration of week 1 cisplatin concurrent with radiation. He is joined by his Sharda today. Recent labs show normal CBC, kidney and liver function, electrolytes, and magnesium levels. Patientreports no significant issues during radiation therapy and has been educated on cisplatin by Dr. Campbell and MAHNAZ Alegre. He inquires about potential side effects of cisplatin, and immune system suppression, and expressesconcern about using bleach in his septic system for chemotherapy precautions. He also asks about activity restrictions and mentions using cannabis to manage treatment effects, which he has been usingfor over 60 years. He reports anxiety during radiation and inquires about using cannabis gummies for anxiety management. Additionally, he notes a lack of appetite, often going all day without eating until 18:00 or 19:00. Initial Visit, August 10, 2024: Transition of Care Bill Allen presents today to transition his care from main campus to be closer to home. He is joined by his , Kayli. Bill is a 73 year old male who was diagnosed with urothelial carcinoma following a cystoscopy with TURBT in 05/2024. MRI of the pelvis/bladder revealed probable invasion intothe superior perivesical fat. Second cystoscopy was completed on 07/21/[address] Hernández - invasion into the lamina propria was present. CT Chest & consultation with Dr. Real are scheduled for tomorrow. He is in agreement for concurrent chemotherapy (weekly Cisplatin x4) + radiation (20 fractions) as recommended by Dr. Stein. He has been on Coumadin for about 30 years due to a PMHx of bilateral lower extremity DVTs. Will closely monitor INR & platelet count throughout his course of treatment. He is a former cigarette smoker, quit in the 90s, and a current cannabis smoker. He is retired from [employer] for [employer]. Prior History from Dr. Stein's Progress Note on 08/04/2024: Plan: Follow up CT Chest on 08/16/2024 to complete staging. Provided scheduling number for him to reschedule this at [facility]. Recommend concurrent chemoRT over 4 weeks with weekly cisplatin 40 mg/m2 IV on Days 1,8,15,22 priorto receiving RT (20 fx planned) on those days. Will need Rx for ondansetron 4mg PO q8h PRN for nausea/vomiting once he starts chemoRT. Following completion of treatment, he should proceed with surveillance with urine cytology, cystoscopy, CT C/A/P, and Signatera every 3 months. I have referred him to [facility] [place] ([facility]) to establish care with medical oncology and radiation oncology so that he may receive his care close to home. They will contact him to schedule these appointments. ____ REVIEW OF SYSTEMS Per HPI and otherwise negative by full review of organ systems. ____ ECOG PERFORMANCE STATUS: 1 PHYSICAL EXAMINATION: Vitals: BP 119/71 Pulse 89 Temp (Src) 97.7 (Temporal) Resp 16 Ht 5' 9.528 (1.77m) Wt 211lb 3.2 oz (95.8kg) SpO2 98% BMI 30.72 kg/(m^2). Body surface area is 2.17 meters squared. General: Alert and oriented, no distress, pleasant and cooperative. Heart: Regular, normal S1 and S2, no murmurs, rubs, or gallops Lungs: Clear to auscultation bilaterally Abdomen: Benign Extremities: Feet/ankles without edema, posterior tibial pulses full and symmetrical ____ ALLERGIES: ALLERGIES No Known Allergies MEDICATIONS: tamsulosin (FLOMAX) 0.4 mg Take 1 capsule by mouth daily at bedtime. tolterodine ER (DETROL LA) 2 mg 24 hr capsule Take 1 capsule by mouth once daily. ondansetron (ZOFRAN) 8 mg tablet Take 1 tablet by mouth every 8 hours as needed for nausea/vomiting. prochlorperazine (COMPAZINE) 10 mg tablet Take 1 tablet by mouth every 6 hours as needed. multivitamin (VITAMIN DAILY ORAL) Take 0.5 tablets by mouth once daily. cholecalciferol, vitamin D3, (VITAMIN D3 ORAL) Take 1 tablet by mouth once daily. Docosahexanoic Acid-Eicosapent (FISH OIL) 120-180 mg capsule Take 2 g by mouth once daily. lisinopril (ZESTRIL, PRINIVIL) 10 mg tablet Take by mouth once daily. warfarin (COUMADIN) 5 mg tablet Take by mouth daily as directed. metoprolol tartrate, short acting, (LOPRESSOR) 50 mg tablet Take by mouth twice daily. terazosin (HYTRIN) 5 mg capsule Take by mouth daily at bedtime. simvastatin (ZOCOR) 40 mg tablet Take by mouth daily at bedtime. coenzyme Q10 (COQ-10) 100 mg cap capsule Take by mouth twice daily. Glucosamine Sulfate (GLUCOSAMINE) 500 mg tab Take 1 tablet by mouth two times a day. iv contrast (will be provided with radiology test) CT Chest ABD/PEL-Inject, intravenously, once for1 dose.No IV access, insert saline lock prior to the beginning of sedation, infusion, injection of imaging exam. Discontinue saline lock post exam. If Pt. has a central line or IVAD, may access for administration according to line specific nursing protocol. Once exam is complete flush line and de-access according to line specific nursing protocol in the CT contrast administration guidelines link. enteric contrast (will be provided with radiology test) For CT CHESTABD/PEL W IVCON Routine order Administer, As Directed One Time Only, via Oral, Rectal, both Oral and Rectal, Enteric Tube, Stoma orIndwelling Catheter, Enteric Contrast as designated per enteric contrast guidelines ____ LABORATORY VALUES: WBC (k/uL) Date Value 10/03/2024 4.63 RBC (m/uL) Date Value 10/03/2024 4.69 Hemoglobin (g/dL) Date Value 10/03/2024 13.7 Hematocrit (%) Date Value 10/03/2024 41.9 MCV (fL) Date Value 10/03/2024 89.3 MCH (pg) Date Value 10/03/2024 29.2 MCHC (g/dL) Date Value 10/03/2024 32.7 RDW-CV (%) Date Value 10/03/2024 13.9 Platelet Count (k/uL) Date Value 10/03/2024 81 (L) MPV (fL) Date Value 10/03/2024 8.6 (L) Glucose (mg/dL) Date Value 10/03/2024 128 (H) BUN (mg/dL) Date Value 10/03/2024 20 Creatinine (mg/dL) Date Value 10/03/2024 1.11 Sodium (mmol/L) Date Value 10/03/2024 140 Potassium (mmol/L) Date Value 10/03/2024 4.2 Chloride (mmol/L) Date Value 09/26/2024 107 CO2 (mmol/L) Date Value 10/03/2024 26 Protein, Total (g/dL) Date Value 10/03/2024 6.9 Albumin (g/dL) Date Value 10/03/2024 4.2 Calcium, Total (mg/dL) Date Value 10/03/2024 9.8 Alkaline Phosphatase (U/L) Date Value 10/03/2024 87 Bilirubin, Total (mg/dL) Date Value 10/03/2024 0.2 AST (U/L) Date Value 10/03/2024 17 ALT (U/L) Date Value 10/03/2024 21 ____ DIAGNOSIS: (C67.9) 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) (primary encounterdiagnosis) PAST MEDICAL HISTORY Diagnosis Date BPH (benign prostatic hypertrophy) Bradycardia CAD (coronary artery disease) DVT of lower extremity (deep venous thrombosis) (HCC) bilateral Erectile dysfunction Former smoker 07/11/2024 History of basal cell carcinoma (BCC) 07/11/2024 HLD (hyperlipidemia) HTN (hypertension) Medical marijuana use 07/11/2024 Palpitations Renal artery stenosis Spinal stenosis in cervical region Superior mesenteric artery stenosis (HCC) 04/19/2024 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) 06/02/2024 PAST SURGICAL HISTORY Procedure Laterality Date BLADDER BIOSPY FULGUR 06/02/2024 Social History Tobacco Use Smoking status: Former Current packs/day: 0.00 Average packs/day: 1.5 packs/day for 22.0 years (33.0 ttl pk-yrs) Types: Cigarettes Start date: 11/14/1969 Quit date: 11/15/1991 Years since quittin.9 Smokeless tobacco: Never Substance Use Topics Alcohol use: No Drug use: Yes Frequency: 7.0 times per week Comment: cannabis FAMILY HISTORY Problem Relation Age of Onset Prostate Cancer Father I spent a total of 30 minutes on the date of the service which included preparing to see the patient, [id number] patient care, completing clinical documentation, performing a medically appropriate examination, counseling and educating the patient/family/caregiver, ordering medications, tests, or p rocedures, independently interpreting results (not separately reported), communicating results to the patient/family/caregiver, and care coordination (not separately reported). Mindi Ireland APRN, EDITOR PRODUCER-C, [facility] Provided at: [place], [place] CC: [place] [id number] [facility] [id number] Dayron Cervantes MD [address] [facility] [address] Trevon Real MD * Mamadou Cui MA - 10/03/2024 9:54 AM EDT Patient does urinate every hour and also has burning with urination. Mamadou Cui MA documented in this encounterAvita [facility]07-21-[address] [facility]07-21-2025 NoteHNO ID: [id number] Author: MAMADOU CUI MA Service: ? Author Type: Vegetable Inspector Type: Progress Notes Filed: 10/03/2024 12:37 Note Text: Patient does urinate every hour and also has burning with urination. Mamadou Cui [facility]07-21-2025 History of Present illness Narrative* Trevon Real MD - 10/03/2024 12:00 AM EDT [facility] Radiation Oncology Department RADIATION ONCOLOGY - COMPLETION NOTE PATIENT: BILL ALLEN: 1950 DATES OF TREATMENT: 09/05/2024- 10/03/2024 DIAGNOSIS: Mr. Allen is a 74-year-old gentleman diagnosed with a [id number] urothelial carcinoma of the bladder status post TURBT on 07/18/[address] Hernández noting high-grade urothelial carcinoma from the posterior bladder wall biopsy. MRI of the pelvis from 07/11/2024 noted the irregular mass along the bladder dome involving the full-thickness of the bladder wall with probable extension into theperivesicular fat and no other pelvic metastatic disease. Staging workup with CT chest abdomen pelvis was negative and he has opted for nonoperative management with concurrent chemoradiation therapy AREA TREATED: Bladder/Pelvis DELIVERED DOSE: 5,500 cGy in 20 fractions, 2 arcs, IMRT, 10 MV with daily CBCT guidance TOTAL: 5,500 cGy delivered in 20 fractions with concurrent cisplatin ELAPSED TIME: 28 days. CLINICAL SUMMARY: The patient tolerated radiation course of pelvic radiation therapy well with mildtreatment-related fatigue and dysuria as expected. No other significant issues. The patient was able to complete treatment as intended without break interruption or modification of prescription plan.The patient will be evaluated in 3-4 weeks for postradiation follow-up and will follow with urologyfor cystoscopy to assess treatment response. Staff Physician Trevon Rael M.D. / WST 55:47 AM Electronically Signed cc: Arianne Stockton MD ([facility]) Babak Hernández MD ([facility]) Dayron Cervantes MD [address] [facility] [address] [address] documented in this encounterAvita Health System [facility]07-21-[address] [facility]07-18-[address] [facility]07-18-2025 History of Present illness Narrative* Funmi Gonzalez RN - 09/30/2024 9:28 AM EDT I spoke with Bill this a.mChaitanya to get an update on urinary urgency and frequency reported on 09/28/24. Flomax 0.4mg sig: I tablet daily at bedtime prescribed per Dr. Smith. Patient states urinary symptoms still present without improvement. He states he has taken 1 tablet at bedtime for the last two nights. He states he had one incident of lightheadedness yesterday. Patient would like to continue with Flomax and update nursing on Thursday. Dr. Smith notified and in agreement. We reviewed theses recommendations: Cranberry juice and/or Azo and Tylenol for urinary pain/burning. Limit caffeine and alcohol intake. Increase fluid intake. Change positions slowly. Call the office over the weekend with further concerns and nursing will get an update Thursday. Bill is in agreement with above and denies further needs at this time. Funmi Gonzalez RN documented in this encounterAvita Health System [facility]07-16-[address] [facility]07-16-2025 History of Present illness Narrative* Judie Smith MD - 09/28/2024 9:32 AM EDT Radiation Oncology - On Treatment Review (OTR) Note PATIENT NAME: Bill Allen PATIENT DIAGNOSIS: [id number] urothelial carcinoma of the bladder status post TURBT on 07/18/[address] Hernández noting high-grade urothelial carcinoma from the posterior bladder wall biopsy. COURSE: definitive and concurrent chemotherapy AREA TREATED: Bladder/pelvis CURRENT DOSE: 4675 cGy in 17 fx PLANNED DOSE: 5500 cGy in 20 fx SUBJECTIVE: Overall doing well. Does complain of urinary frequency and urgency. Does complain of incomplete emptying and some difficulty starting on occasion. Denies any dysuria or hematuria. EXAM: 09/28/24 0928 BP: 155/80 BP Site: Left Arm BP Position: Sitting BP Cuff Size: Large Adult Pulse: 60 Resp: 16 Temp: 36.6 C (97.8 F) TempSrc: Temporal SpO2: 98% Weight: 97.6 kg (215 lb 2.7 oz) Height: 176.6 cm (5' 9.53 ) KPS: 90 General Appearance: Alert and oriented. No acute distress. Radiation dermatitis: No IMAGING/LAB RESULTS: None Treatment chart checked: Yes Patient treatment site reviewed and verified:Yes Port films reviewed and current:Yes Medications started: None ASSESSMENT/PLAN: Clinically stable. Side effects are within expected parameters Continue radiation treatment as planned. Discussed addition of Flomax versus Hytrin. He has not taken his Hytrin and given his obstructive complaints we will have him hold off on this for now and give him a trial of Flomax. Discussed that should he develop orthostatic symptoms that he should stop. Judie Smith MD documented in this encounterAvita Health System [facility]07-14-2025 NoteHNO ID: [id number] Author: MELLISA FRAUSTO MA Service: ? Author Type: Vegetable Inspector Type: Progress Notes Filed: 09/26/2024 09:22 Note Text: Back office UA test performed. Results entered in [employer] and doctor notified. Mellisa Frausto [facility]07-14-[address] [facility]07-14-2025 History of Present illness Narrative* Mamadou Cui MA - 09/26/2024 8:41 AM EDT Patient has been going back and forth with diarrhea and constipation. Patient would like to discussFlomax, Dr. Real has spoken to him in regards to this. Mamadou Cui MA * Layton Jeong PA-C - 09/26/2024 8:30 AM EDT Images from the original note were not included. NAME: Bill Allen [facility] NO.: [id number] DATE OF SERVICE: September 26, 2024 ([place]) Referring Provider: Lilliam Stein MD Additional Clinicians involved in Bill Allen's care: Dr. 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 He has elected bladder preservation and will proceed with weekly cisplatin +radiation over 4 weeks. SUMMARIZED PLAN: Proceed today with week 4 of Cisplatin Plan for weekly Cisplatin x 4 + concurrent radiation RTC next week with labs same day, no treatment 3. Surveillance will entail: cystoscopy, urine cytology, CT C/A/P, and Signatera every 3 months following completion of chemoRT. 4. Urinalysis and culture for dysuria and increased frequency 5. Will defer flomax consideration to XRT due to Hytrin already prescribed. (Message sent to xrt department). Recommendation is for detrol if no obstructive issues. Will prescribe Detrol ER 2mg daily. CASE HISTORY: Reverse Chronological Order 09/05/2024- Started weekly Cisplatin concurrent with radiation. 08/11/2024 CT CHEST: IMPRESSION: 5 mm indeterminate left upper lobe nodule. Continued follow-up is recommended. 07/18/2024 - Cystoscopy with TURBT - Specimen #: [id number]: Dr. Hernández A. Urinary bladder, lower posterior wall, biopsy: - Benign urinary bladder tissue with no significant pathologic change. - Negative for dysplasia or malignancy. - Muscularis propria is not present for evaluation. B. Urinary bladder, left lateral wall, biopsy: - Benign urinary bladder tissue with von Brunn nests. - Negative for dysplasia or malignancy. - Muscularis propria is not present for evaluation. C. Urinary bladder, right lateral wall, biopsy: - Benign urinary bladder tissue with partial mucosal denudation and minor chronic inflammation. - Negative for dysplasia or malignancy. - Muscularis propria is present and negative for neoplasm. D. Urinary bladder, dome, biopsy: - Urothelial carcinoma in situ. - No invasion identified (at least pTis). - Muscularis propria is not present for evaluation. E. Urinary bladder, posterior bladder wall, biopsy: - Urothelial carcinoma, papillary and focally invasive, high-grade. - Focal lamina propria invasion is present (at least pT1). - Muscularis propria is not present for evaluation. 07/11/2024 - MRI Pelvis/Bladder: Irregular mass along the bladder dome involving the full-thickness of the bladder wall with probable extension into the superior perivesical fat (at least stage T2, and likely T3 disease), consistentwith known urinary bladder urothelial neoplasm. No pelvic metastatic disease. 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 More diffuse bladder wall thickening, suggestive chronic outlet obstruction. Prostate volume is approximately 42 mL. 06/02/2024 - Cystoscopy with TURBT: Dr. Micaela Ireland cT2 high-grade muscle invasive urothelial carcinoma 04/19/2024 - CT A/P: Bladder contour regularity/filling defect along the dome of the bladder concerning for urothelial neoplasm. Recommend follow-up with urology. Possible bilateral nephrolithiasis. 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 HPI: Updated Visit, September 26, 2024: Bill returns for follow up and his 4th cisplatin weekly with radiation for his muscle invasive bladder cancer. He is still struggling between diarrhea and constipation. He did have a small BM this morning. Urinating about every hour to hour and a half. Feliz has mentioned flomax, however he is already on hytrin. Denies any dizziness upon standing or passing out. He did have an episode of feeling like passing out last week however it resolved. Denies nausea/vomiting. He is eating and drinking well. He denies neuropathy or hearing loss. No hematuria. Updated Visit, September 19, 2024: Patient is currently undergoing radiation therapy and chemotherapy with weekly cisplatin. He reports experiencing constipation last week, followed by diarrhea after taking medication. He has since resumed normal bowel movements and denies any blood in the stool. He also denies any blood in the urine, bleeding, or abnormal bruising. He reports frequent urination approximately every hour, with associated burning sensation and a feeling of incomplete bladder emptying. He denies any nausea or vomiting and manages potential nausea with cannabis. He notes a lack of energy and expresses concern about potential worsening of symptoms with ongoing treatment. Recent labs show a slight elevation in WBC count at 11.33 x 10^9/L (normal 3.7- 11 x 10^9/L). Hemoglobin is within normal limits at 14.4 g/dL (normal 13-17 g/dL), and platelet count is slightly decreased but still within acceptable range for treatment. BUN and creatinine levels are normal, indicating good kidney function. Liver enzymes, including bilirubin, alkaline phosphatase, AST, and ALT, are within normal limits. Electrolytes, including sodium and potassium, are also normal. Patient reports consuming extra fluids for hydration daily. He is scheduled to see his radiation oncologist, Dr. Real, on Thursday. Updated Visit, September 12, 2024: Patient is currently undergoing treatment with cisplatin and radiation therapy. He reports that the first treatment of cisplatin was well-tolerated. He denies experiencing nausea,vomiting, fever, or chills. Appetite remains good, and he is eating well. He initially experienced constipation, which has since resolved. He reports a slight increase in burning sensation during urination over the past week but denies hematuria, fever, or chills. He remains somewhat active, walking around the house and sitting on the porch. He expresses mild nervousness about potential cumulative effects of chemotherapy but is otherwise feeling okay. Recent labs show WBC count, hemoglobin at 14.7 g/dL, and platelets at 204,000/ L, all within normallimits. .Updated Visit, September 05, 2024: Bill presents today with his for consideration of week 1 cisplatin concurrent with radiation. He is joined by his Sharda today. Recent labs show normal CBC, kidney and liver function, electrolytes, and magnesium levels. Patientreports no significant issues during radiation therapy and has been educated on cisplatin by Dr. Campbell and MAHNAZ Alegre. He inquires about potential side effects of cisplatin, and immune system suppression, and expressesconcern about using bleach in his septic system for chemotherapy precautions. He also asks about activity restrictions and mentions using cannabis to manage treatment effects, which he has been usingfor over 60 years. He reports anxiety during radiation and inquires about using cannabis gummies for anxiety management. Additionally, he notes a lack of appetite, often going all day without eating until 18:00 or 19:00. Initial Visit, August 10, 2024: Transition of Care Bill Allen presents today to transition his care from main campus to be closer to home. He is joined by his , Kayli. Bill is a 73 year old male who was diagnosed with urothelial carcinoma following a cystoscopy with TURBT in 05/2024. MRI of the pelvis/bladder revealed probable invasion intothe superior perivesical fat. Second cystoscopy was completed on 07/21/[address] Hernández - invasion into the lamina propria was present. CT Chest & consultation with Dr. Real are scheduled for tomorrow. He is in agreement for concurrent chemotherapy (weekly Cisplatin x4) + radiation (20 fractions) as recommended by Dr. Stein. He has been on Coumadin for about 30 years due to a PMHx of bilateral lower extremity DVTs. Will closely monitor INR & platelet count throughout his course of treatment. He is a former cigarette smoker, quit in the 90s, and a current cannabis smoker. 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 Prior History from Dr. Stein's Progress Note on 08/04/2024: Plan: Follow up CT Chest on 08/16/2024 to complete staging. Provided scheduling number for him to reschedule this at [facility]. Recommend concurrent chemoRT over 4 weeks with weekly cisplatin 40 mg/m2 IV on Days 1,8,15,22 priorto receiving RT (20 fx planned) on those days. Will need Rx for ondansetron 4mg PO q8h PRN for nausea/vomiting once he starts chemoRT. Following completion of treatment, he should proceed with surveillance with urine cytology, cystoscopy, CT C/A/P, and Signatera every 3 months. I have referred him to [facility] [place] ([facility]) to establish care with medical oncology and radiation oncology so that he may receive his care close to home. They will contact him to schedule these appointments. REVIEW OF SYSTEMS Per HPI and otherwise negative by full review of organ systems. ECOG PERFORMANCE STATUS: 1 PHYSICAL EXAMINATION: Vitals: BP 151/82[recheck on RT arm[ Pulse 74 Temp (Src) 97.1 (Temporal) Resp 16 Ht 5' 9.528 (1.77m) Wt 212 lb 8.4 oz (96.4kg) SpO2 98% BMI 30.91 kg/(m^2). Body surface area is 2.17 meters squared. General: Alert and oriented, no distress, pleasant and cooperative. Heart: Regular, normal S1 and S2, no murmurs, rubs, or gallops Lungs: Clear to auscultation bilaterally Abdomen: Benign Extremities: Feet/ankles without edema, posterior tibial pulses full and symmetrical ALLERGIES: ALLERGIES No Known Allergies MEDICATIONS: ondansetron (ZOFRAN) 8 mg tablet Take 1 tablet by mouth every 8 hours as needed for nausea/vomiting. prochlorperazine (COMPAZINE) 10 mg tablet Take 1 tablet by mouth every 6 hours as needed. multivitamin (VITAMIN DAILY ORAL) Take 0.5 tablets by mouth once daily. cholecalciferol, vitamin D3, (VITAMIN D3 ORAL) Take 1 tablet by mouth once daily. Docosahexanoic Acid-Eicosapent (FISH OIL) 120-180 mg capsule Take 2 g by mouth once daily. lisinopril (ZESTRIL, PRINIVIL) 10 mg tablet Take by mouth once daily. warfarin (COUMADIN) 5 mg tablet Take by mouth daily as directed. metoprolol tartrate, short acting, (LOPRESSOR) 50 mg tablet Take by mouth twice daily. terazosin (HYTRIN) 5 mg capsule Take by mouth daily at bedtime. simvastatin (ZOCOR) 40 mg tablet Take by mouth daily at bedtime. coenzyme Q10 (COQ-10) 100 mg cap capsule Take by mouth twice daily. Glucosamine Sulfate (GLUCOSAMINE) 500 mg tab Take 1 tablet by mouth two times a day. LABORATORY VALUES: WBC (k/uL) Date Value 09/26/2024 7.32 RBC (m/uL) Date Value 09/26/2024 4.80 Hemoglobin (g/dL) Date Value 09/26/2024 13.9 Hematocrit (%) Date Value 09/26/2024 42.3 MCV (fL) Date Value 09/26/2024 88.1 MCH (pg) Date Value 09/26/2024 29.0 MCHC (g/dL) Date Value 09/26/2024 32.9 RDW-CV (%) Date Value 09/26/2024 13.5 Platelet Count (k/uL) Date Value 09/26/2024 116 (L) MPV (fL) Date Value 09/26/2024 9.1 Glucose (mg/dL) Date Value 09/26/2024 155 (H) BUN (mg/dL) Date Value 09/26/2024 18 Creatinine (mg/dL) Date Value 09/26/2024 0.97 Sodium (mmol/L) Date Value 09/26/2024 140 Potassium (mmol/L) Date Value 09/26/2024 4.0 Chloride (mmol/L) Date Value 09/26/2024 107 CO2 (mmol/L) Date Value 09/26/2024 22 Protein, Total (g/dL) Date Value 09/26/2024 6.8 Albumin (g/dL) Date Value 09/26/2024 4.0 Calcium, Total (mg/dL) Date Value 09/26/2024 9.6 Alkaline Phosphatase (U/L) Date Value 09/26/2024 87 Bilirubin, Total (mg/dL) Date Value 09/26/2024 0.2 AST (U/L) Date Value 09/26/2024 16 ALT (U/L) Date Value 09/26/2024 21 DIAGNOSIS: (C67.9) 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) (primary encounterdiagnosis) PAST MEDICAL HISTORY Diagnosis Date BPH (benign prostatic hypertrophy) Bradycardia CAD (coronary artery disease) DVT of lower extremity (deep venous thrombosis) (HCC) bilateral Erectile dysfunction Former smoker 07/11/2024 History of basal cell carcinoma (BCC) 07/11/2024 HLD (hyperlipidemia) HTN (hypertension) Medical marijuana use 07/11/2024 Palpitations Renal artery stenosis Spinal stenosis in cervical region Superior mesenteric artery stenosis (HCC) 04/19/2024 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) 06/02/2024 PAST SURGICAL HISTORY Procedure Laterality Date BLADDER BIOSPY FULGUR 06/02/2024 Social History Tobacco Use Smoking status: Former Current packs/day: 0.00 Average packs/day: 1.5 packs/day for 22.0 years (33.0 ttl pk-yrs) Types: Cigarettes Start date: 11/14/1969 Quit date: 11/15/1991 Years since quittin.8 Smokeless tobacco: Never Substance Use Topics Alcohol use: No Drug use: Yes Frequency: 7.0 times per week Comment: cannabis FAMILY HISTORY Problem Relation Age of Onset Prostate Cancer Father I spent a total of 30 minutes on the date of the service which included preparing to see the patient, [id number] patient care, completing clinical documentation, performing a medically appropriate examination, counseling and educating the patient/family/caregiver, ordering medications, tests, or p rocedures, independently interpreting results (not separately reported), communicating results to the patient/family/caregiver, and care coordination (not separately reported). Layton Jeong PA-C Hematology and Oncology Services Provided at: [place], [place] CC: [place] [id number] [facility], [facility] [id number] Dayron Cervantes MD [address] [facility] [address] Trevon Real MD documented in this encounterAvita Health System [facility]07-14-[address] [facility]07-09-[address] [facility]07-09-2025 History of Present illness Narrative* Trevon Real MD - 09/21/2024 10:57 PM EDT Radiation Oncology - On Treatment Review (OTR) Note PATIENT NAME: Bill Allen PATIENT DIAGNOSIS: Mr. Allen is a 74-year-old gentleman recently diagnosed with a [id number] urothelial carcinoma of the bladder status post TURBT on 07/18/[address] Hernández noting high-grade urothelial carcinoma from the posterior bladder wall biopsy. MRI of the pelvis from 07/11/2024 noted the irregular mass along the bladder dome involving the full-thickness of the bladder wall with probable extensioninto the perivesicular fat and no other pelvic metastatic disease. Staging workup with CT chest abdomen pelvis was negative and he has opted for nonoperative management with concurrent chemoradiationtherapy COURSE: definitive and concurrent chemotherapy AREA TREATED: Bladder/pelvis CURRENT DOSE: 3300 cGy in 12 fx PLANNED DOSE: 5500 cGy in 20 fx SUBJECTIVE: Tolerating XRT well and notes continued burning/discomfort with urination which she feels is tolerable with nocturia approximately 4 times. He denies any hematuria or passing blood clots.He alternates between diarrhea and constipation and has been managing his symptoms with cannabis. Endorse fatigue with stable appetite and hydration and weight. EXAM: KPS: 90 General Appearance: Alert and oriented. No acute distress. Radiation dermatitis: No IMAGING/LAB RESULTS: None Treatment chart checked: Yes Patient treatment site reviewed and verified:Yes Port films reviewed and current:Yes Medications started: None ASSESSMENT/PLAN: Clinically stable. Side effects are within expected parameters Continue radiation treatment as planned. Trevon Real MD documented in this encounterAvita Health System [facility]07-07-2025 NoteHNO ID: [id number] Author: MAMADOU CUI MA Service: ? Author Type: Vegetable Inspector Type: Progress Notes Filed: 09/19/2024 19:09 Note Text: Patient is going between diarrhea and constipation. Mamadou Cui MA [facility]07-07-2025 History of Present illness Narrative* Mamadou Cui MA - 09/19/2024 11:18 AM EDT Patient is going between diarrhea and constipation. Mamadou Cui MA * Nataly Monson APRN.[facility] - 09/18/2024 6:23 PM EDT Images from the original note were not included. NAME: Charlene Allenn [facility] NO.: [id number] DATE OF SERVICE: September 19, 2024 ([place]) Referring Provider: Lilliam Stein MD Additional Clinicians involved in Bill Jaimenett's care: Dr. 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 He has elected bladder preservation and will proceed with weekly cisplatin +radiation over 4 weeks. SUMMARIZED PLAN: Proceed today with week 3 of Cisplatin Plan for weekly Cisplatin x 4 + concurrent radiation RTC next week with labs same day. CASE HISTORY: Reverse Chronological Order 09/05/2024- Started weekly Cisplatin concurrent with radiation. 08/11/2024 CT CHEST: IMPRESSION: 5 mm indeterminate left upper lobe nodule. Continued follow-up is recommended. 07/18/2024 - Cystoscopy with TURBT - Specimen #: [id number]: Dr. Hernández A. Urinary bladder, lower posterior wall, biopsy: - Benign urinary bladder tissue with no significant pathologic change. - Negative for dysplasia or malignancy. - Muscularis propria is not present for evaluation. B. Urinary bladder, left lateral wall, biopsy: - Benign urinary bladder tissue with von Brunn nests. - Negative for dysplasia or malignancy. - Muscularis propria is not present for evaluation. C. Urinary bladder, right lateral wall, biopsy: - Benign urinary bladder tissue with partial mucosal denudation and minor chronic inflammation. - Negative for dysplasia or malignancy. - Muscularis propria is present and negative for neoplasm. D. Urinary bladder, dome, biopsy: - Urothelial carcinoma in situ. - No invasion identified (at least pTis). - Muscularis propria is not present for evaluation. E. Urinary bladder, posterior bladder wall, biopsy: - Urothelial carcinoma, papillary and focally invasive, high-grade. - Focal lamina propria invasion is present (at least pT1). - Muscularis propria is not present for evaluation. 07/11/2024 - MRI Pelvis/Bladder: Irregular mass along the bladder dome involving the full-thickness of the bladder wall with probable extension into the superior perivesical fat (at least stage T2, and likely T3 disease), consistentwith known urinary bladder urothelial neoplasm. No pelvic metastatic disease. 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 More diffuse bladder wall thickening, suggestive chronic outlet obstruction. Prostate volume is approximately 42 mL. 06/02/2024 - Cystoscopy with TURBT: Dr. Micaela Ireland cT2 high-grade muscle invasive urothelial carcinoma 04/19/2024 - CT A/P: Bladder contour regularity/filling defect along the dome of the bladder concerning for urothelial neoplasm. Recommend follow-up with urology. Possible bilateral nephrolithiasis. 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 HPI: Updated Visit, September 19, 2024: Patient is currently undergoing radiation therapy and chemotherapy with weekly cisplatin. He reports experiencing constipation last week, followed by diarrhea after taking medication. He has since resumed normal bowel movements and denies any blood in the stool. He also denies any blood in the urine, bleeding, or abnormal bruising. He reports frequent urination approximately every hour, with associated burning sensation and a feeling of incomplete bladder emptying. He denies any nausea or vomiting and manages potential nausea with cannabis. He notes a lack of energy and expresses concern about potential worsening of symptoms with ongoing treatment. Recent labs show a slight elevation in WBC count at 11.33 x 10^9/L (normal 3.7- 11 x 10^9/L). Hemoglobin is within normal limits at 14.4 g/dL (normal 13-17 g/dL), and platelet count is slightly decreased but still within acceptable range for treatment. BUN and creatinine levels are normal, indicating good kidney function. Liver enzymes, including bilirubin, alkaline phosphatase, AST, and ALT, are within normal limits. Electrolytes, including sodium and potassium, are also normal. Patient reports consuming extra fluids for hydration daily. He is scheduled to see his radiation oncologist, Dr. Real, on Thursday. Updated Visit, September 12, 2024: Patient is currently undergoing treatment with cisplatin and radiation therapy. He reports that the first treatment of cisplatin was well-tolerated. He denies experiencing nausea,vomiting, fever, or chills. Appetite remains good, and he is eating well. He initially experienced constipation, which has since resolved. He reports a slight increase in burning sensation during urination over the past week but denies hematuria, fever, or chills. He remains somewhat active, walking around the house and sitting on the porch. He expresses mild nervousness about potential cumulative effects of chemotherapy but is otherwise feeling okay. Recent labs show WBC count, hemoglobin at 14.7 g/dL, and platelets at 204,000/ L, all within normallimits. .Updated Visit, September 05, 2024: Bill presents today with his for consideration of week 1 cisplatin concurrent with radiation. He is joined by his Sharda today. Recent labs show normal CBC, kidney and liver function, electrolytes, and magnesium levels. Patientreports no significant issues during radiation therapy and has been educated on cisplatin by Dr. Campbell and MAHNAZ Alegre. He inquires about potential side effects of cisplatin, and immune system suppression, and expressesconcern about using bleach in his septic system for chemotherapy precautions. He also asks about activity restrictions and mentions using cannabis to manage treatment effects, which he has been usingfor over 60 years. He reports anxiety during radiation and inquires about using cannabis gummies for anxiety management. Additionally, he notes a lack of appetite, often going all day without eating until 18:00 or 19:00. Initial Visit, August 10, 2024: Transition of Care Bill Allen presents today to transition his care from main campus to be closer to home. He is joined by his , Kayli. Bill is a 73 year old male who was diagnosed with urothelial carcinoma following a cystoscopy with TURBT in 05/2024. MRI of the pelvis/bladder revealed probable invasion intothe superior perivesical fat. Second cystoscopy was completed on 07/21/[address] Hernández - invasion into the lamina propria was present. CT Chest & consultation with Dr. Real are scheduled for tomorrow. He is in agreement for concurrent chemotherapy (weekly Cisplatin x4) + radiation (20 fractions) as recommended by Dr. Stein. He has been on Coumadin for about 30 years due to a PMHx of bilateral lower extremity DVTs. Will closely monitor INR & platelet count throughout his course of treatment. He is a former cigarette smoker, quit in the 90s, and a current cannabis smoker. 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 Prior History from Dr. Stein's Progress Note on 08/04/2024: Plan: Follow up CT Chest on 08/16/2024 to complete staging. Provided scheduling number for him to reschedule this at [facility]. Recommend concurrent chemoRT over 4 weeks with weekly cisplatin 40 mg/m2 IV on Days 1,8,15,22 priorto receiving RT (20 fx planned) on those days. Will need Rx for ondansetron 4mg PO q8h PRN for nausea/vomiting once he starts chemoRT. Following completion of treatment, he should proceed with surveillance with urine cytology, cystoscopy, CT C/A/P, and Signatera every 3 months. I have referred him to [facility] [place] ([facility]) to establish care with medical oncology and radiation oncology so that he may receive his care close to home. They will contact him to schedule these appointments. REVIEW OF SYSTEMS Per HPI and otherwise negative by full review of organ systems. ECOG PERFORMANCE STATUS: 1 PHYSICAL EXAMINATION: Vitals: BP 111/68 Pulse 65 Temp (Src) 97.7 (Temporal) Resp 16 Ht 5' 9.528 (1.77m) Wt 212lb 11.9 oz (96.5kg) SpO2 98% BMI 30.94 kg/(m^2). Body surface area is 2.18 meters squared. Exam limited to gross visualization where appropriate. Gen.: This is an age-appropriate patient in no acute distress. Head: Appears atraumatic with no visible lesions. Eyes: Pupils equally round and reactive to light, extraocular muscles are intact. Neck: Supple. Respiratory: Appears to be respiring comfortably. Neurologic: Nonfocal to gross visualization. Alert and oriented 3. Psychiatric: No evidence of inappropriate anxiety or depression. Skin: Visible areas of skin without rash, lesions, wounds or petechiae. ALLERGIES: ALLERGIES No Known Allergies MEDICATIONS: ondansetron (ZOFRAN) 8 mg tablet Take 1 tablet by mouth every 8 hours as needed for nausea/vomiting. prochlorperazine (COMPAZINE) 10 mg tablet Take 1 tablet by mouth every 6 hours as needed. multivitamin (VITAMIN DAILY ORAL) Take 0.5 tablets by mouth once daily. cholecalciferol, vitamin D3, (VITAMIN D3 ORAL) Take 1 tablet by mouth once daily. Docosahexanoic Acid-Eicosapent (FISH OIL) 120-180 mg capsule Take 2 g by mouth once daily. lisinopril (ZESTRIL, PRINIVIL) 10 mg tablet Take by mouth once daily. warfarin (COUMADIN) 5 mg tablet Take by mouth daily as directed. metoprolol tartrate, short acting, (LOPRESSOR) 50 mg tablet Take by mouth twice daily. terazosin (HYTRIN) 5 mg capsule Take by mouth daily at bedtime. simvastatin (ZOCOR) 40 mg tablet Take by mouth daily at bedtime. coenzyme Q10 (COQ-10) 100 mg cap capsule Take by mouth twice daily. Glucosamine Sulfate (GLUCOSAMINE) 500 mg tab Take 1 tablet by mouth two times a day. LABORATORY VALUES: WBC (k/uL) Date Value 09/19/2024 11.33 (H) RBC (m/uL) Date Value 09/19/2024 5.02 Hemoglobin (g/dL) Date Value 09/19/2024 14.4 Hematocrit (%) Date Value 09/19/2024 44.3 MCV (fL) Date Value 09/19/2024 88.2 MCH (pg) Date Value 09/19/2024 28.7 MCHC (g/dL) Date Value 09/19/2024 32.5 RDW-CV (%) Date Value 09/19/2024 13.5 Platelet Count (k/uL) Date Value 09/19/2024 147 (L) MPV (fL) Date Value 09/19/2024 9.1 Glucose (mg/dL) Date Value 09/19/2024 126 (H) BUN (mg/dL) Date Value 09/19/2024 20 Creatinine (mg/dL) Date Value 09/19/2024 1.03 Sodium (mmol/L) Date Value 09/19/2024 140 Potassium (mmol/L) Date Value 09/19/2024 4.3 Chloride (mmol/L) Date Value 09/19/2024 105 CO2 (mmol/L) Date Value 09/19/2024 24 Protein, Total (g/dL) Date Value 09/19/2024 7.2 Albumin (g/dL) Date Value 09/19/2024 4.2 Calcium, Total (mg/dL) Date Value 09/19/2024 9.9 Alkaline Phosphatase (U/L) Date Value 09/19/2024 97 Bilirubin, Total (mg/dL) Date Value 09/19/2024 0.3 AST (U/L) Date Value 09/19/2024 21 ALT (U/L) Date Value 09/19/2024 27 DIAGNOSIS: (C67.9) 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) (primary encounterdiagnosis) PAST MEDICAL HISTORY Diagnosis Date BPH (benign prostatic hypertrophy) Bradycardia CAD (coronary artery disease) DVT of lower extremity (deep venous thrombosis) (HCC) bilateral Erectile dysfunction Former smoker 07/11/2024 History of basal cell carcinoma (BCC) 07/11/2024 HLD (hyperlipidemia) HTN (hypertension) Medical marijuana use 07/11/2024 Palpitations Renal artery stenosis Spinal stenosis in cervical region Superior mesenteric artery stenosis (HCC) 04/19/2024 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) 06/02/2024 PAST SURGICAL HISTORY Procedure Laterality Date BLADDER BIOSPY FULGUR 06/02/2024 Social History Tobacco Use Smoking status: Former Current packs/day: 0.00 Average packs/day: 1.5 packs/day for 22.0 years (33.0 ttl pk-yrs) Types: Cigarettes Start date: 11/14/1969 Quit date: 11/15/1991 Years since quittin.8 Smokeless tobacco: Never Substance Use Topics Alcohol use: No Drug use: Yes Frequency: 7.0 times per week Comment: cannabis FAMILY HISTORY Problem Relation Age of Onset Prostate Cancer Father I spent a total of 30 minutes on the date of the service which included preparing to see the patient, [id number] patient care, completing clinical documentation, obtaining and/or reviewing separately obtained history, performing a medically appropriate examination, counseling and educating the pat ient/family/caregiver, ordering medications, tests, or procedures, independently interpreting results (not separately reported), and communicating results to the patient/family/caregiver. Nataly Monson APRN.V[facility] Provided at: [place], [place] CC: [place] [id number] [facility] [address] Dayron Cervantes MD [address] [facility] [id number] Trevon Real MD documented in this encounterAvita [facility]07-06-[address] [facility]07-03-2025 Telephone encounter Note* Telephone Encounter - Nataly Monson APRN.VICK - 09/15/2024 12:19 PM EDT Thank you for the update. Let us know if you need anything. Thanks, Nataly Monson APRN.VICK [facility] Work Phone: [phone] Miscellaneous Notes* Telephone Encounter - Nataly Monson APRN.VICK - 09/15/2024 12:19 PM EDT Thank you for the update. Let us know if you need anything. Thanks, Nataly Monson APRN.VICK * Telephone Encounter - Funmi Gonzalez RN - 09/15/2024 10:13 AM EDT ANKUSH Armenta is here for radiation therapy to the pelvis for bladder cancer, fraction 12/03. RT Fatmata said Bill told her he wasn't feeling well and she asked that I evaluate patient. Bill is alert and oriented x 3. He states he's feeling ok. RT Fatmata was present and said that's not what you just told me. Bill said well it's not that bad . He has no specific complaints at this time. He denies lightheadedness, dizziness, headaches, numbness or tingling. He denies shortness of breath or cough. He states he is eating and drinking well. He drank an instant breakfast this a.m. and is not diabetic. He denies bowel or bladder concerns. He denies any new medications. VS: BP 137/81, P 66, T 97.0, R 18, SpO2 99% RA resting. I encouraged Bill to push his fluids, whichhe states, I can probably do more of , rest as needed, and continue a heart healthy diet, encouraged high protein meals/snacks. He will notify the office with further concerns. He denies questions at this time. Funmi Gonzalez RN documented in this encounterAvita [facility]07-03-[address] [facility]07-03-2025 History of Present illness Narrative* Fouzia Dietrich LSW - 09/15/2024 10:25 AM EDT SW attempted to meet with Patient in the radiation waiting area. When this SW arrived Patient was being assessed by the nurse. SW will try again another day to meet with Patient and introduce SW services. NABIL Gilbert Advance Care Planning Goals of Care In this encounter: Advance Directives are not on file documented in this encounterAvita [facility]07-03-2025 Telephone encounter Note * Telephone Encounter - Funmi Gonzalez RN - 09/15/2024 10:13 AM EDT ANKUSH Armenta is here for radiation therapy to the pelvis for bladder cancer, fraction 12/03. Fatmata RT said Bill told her he wasn't feeling well and she asked that I evaluate patient. Bill is alert and oriented x 3. He states he's feeling ok. RT Fatmata was present and said that's not what you just told me. Bill said well it's not that bad . He has no specific complaints at this time. He denies lightheadedness, dizziness, headaches, numbness or tingling. He denies shortness of breath or cough. He states he is eating and drinking well. He drank an instant breakfast this a.m. and is not diabetic. He denies bowel or bladder concerns. He denies any new medications. VS: BP 137/81, P 66, T 97.0, R 18, SpO2 99% RA resting. I encouraged Bill to push his fluids, whichhe states, I can probably do more of , rest as needed, and continue a heart healthy diet, encouraged high protein meals/snacks. He will notify the office with further concerns. He denies questions at this time. Funmi Gonzalez RN [facility]07-03-2025 History of Present illness Narrative* Funmi Gonzalez RN - 09/15/2024 10:06 AM EDT Bill is here for radiation therapy to the pelvis for bladder cancer, fraction 12/03. Fatmata RT said Bill told her he wasn't feeling well and she asked that I evaluate patient. Bill is alert and oriented x 3. He states he's feeling ok. Fatmata RT was present and said that's not what you just told me. Bill said well it's not that bad . He has no specific complaints at this time. He denies lightheadedness, dizziness, headaches, numbness or tingling. He denies shortness of breath or cough. He states he is eating and drinking well. He drank an instant breakfast this a.m. and is not diabetic. He denies bowel or bladder concerns. He denies any new medications. VS: BP 137/81, P 66, T 97.0, R 18, SpO2 99% RA resting. I encouraged Bill to push his fluids, whichhe states, I can probably do more of , rest as needed, and continue a heart healthy diet, encouraged high protein meals/snacks. He will notify the office with further concerns. He denies questions at this time. Funmi Gonzalez RN documented in this encounterAvita [facility]07-03-[address] [facility]07-02-2025 Telephone encounter Note* Telephone Encounter - Leanne Jha MA - 09/14/2024 2:20 PM EDT Patient has an OTV appointment on 09/19. Please place lab orders. Leanne Jha MA [facility]07-02-2025 Miscellaneous Notes* Telephone Encounter - Leanne Jha MA - 09/14/2024 2:20 PM EDT Patient has an OTV appointment on 09/19. Please place lab orders. Leanne Jha MA documented in this encounterAvita Health System [facility]07-02-[address] [facility]07-02-2025 History of Present illness Narrative* Trevon Real MD - 09/14/2024 1:18 AM EDT Radiation Oncology - On Treatment Review (OTR) Note PATIENT NAME: Bill Allen PATIENT DIAGNOSIS: Mr. Allen is a 74-year-old gentleman recently diagnosed with a [id number] urothelial carcinoma of the bladder status post TURBT on 07/18/[address] Hernández noting high-grade urothelial carcinoma from the posterior bladder wall biopsy. MRI of the pelvis from 07/11/2024 noted the irregular mass along the bladder dome involving the full-thickness of the bladder wall with probable extensioninto the perivesicular fat and no other pelvic metastatic disease. Staging workup with CT chest abdomen pelvis was negative and he has opted for nonoperative management with concurrent chemoradiationtherapy COURSE: definitive and concurrent chemotherapy AREA TREATED: Bladder/pelvis CURRENT DOSE: 2200 cGy in 8 fx PLANNED DOSE: 5500 cGy in 20 fx SUBJECTIVE: Tolerating XRT well and does note burning/discomfort urination as well as increased urinary frequency. He denies any hematuria or trouble starting stream or straining. He does have altered bowel movements including constipation and endorses stable energy. EXAM: KPS: 90 General Appearance: Alert and oriented. No acute distress. Radiation dermatitis: No IMAGING/LAB RESULTS: None Treatment chart checked: Yes Patient treatment site reviewed and verified:Yes Port films reviewed and current:Yes Medications started: None ASSESSMENT/PLAN: Clinically stable. Side effects are within expected parameters Continue radiation treatment as planned. Trevon Real MD documented in this encounterAvita Health [facility]06-30-2025 Telephone encounter Note * Telephone Encounter - Martha Marsh RN - 09/12/2024 2:47 PM EDT Pt notified and verbalizes understanding. Results faxed to Dr Cervantes's office. Martha Marsh RN [facility] Work Phone: [phone] Miscellaneous Notes* Telephone Encounter - Martha Marsh RN - 09/12/2024 2:47 PM EDT Pt notified and verbalizes understanding. Results faxed to Dr Cervantes's office. Martha Marsh RN documented in this encounterAvita Health System [facility]06-30-2025 Instructions* Patient Instructions* Mindi Ireland APRN.CNP - 09/12/2024 10:23 AM EDT We discussed your chemotherapy and radiation treatment: - Your first treatment of cisplatin went well, and today is cycle 1, day 8. We will continue to monitor how you tolerate the treatments weekly. - Your lab results look great: your immune system is strong, your hemoglobin is 14.7, and your platelets are 204, all within normal range. - You reported no nausea, vomiting, fever, or chills. Please let me know if any of these symptoms develop. - Continue staying as active as you can, even if it s light activity like walking around the house or sitting on the porch. We discussed your constipation: - You mentioned that your constipation has improved. Please let me know if it becomes an issue again. We discussed your bladder symptoms: - You noted a slight increase in burning with urination compared to last week. There is no blood, fever, or chills at this time. If the burning worsens or you develop additional symptoms, please let me know immediately. Follow-up: - We will continue to see each other weekly to monitor your progress and address any concerns. Yournext appointment is scheduled for next week. documented in this encounterAvita Health System [facility]06-30-2025 History of Present illness Narrative* Mindi Ireland APRN.RAILROAD TRACK INSPECTOR - 09/12/2024 10:00 AM EDT Images from the original note were not included. NAME: Bill Allen NO.: [id number] DATE OF SERVICE:September 12, 2024 (Elizabeth) Referring Provider: Lilliam Stein MD Consultation requested by Dr. Stein for an opinion regarding Mr. Bill Allen, and my final recommendations will be communicated back to the requesting physician by way of shared medical record or letter via US mail. 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 He has elected bladder preservation and will proceed with weekly cisplatin + Radiation over 4 weeks. SUMMARIZED PLAN: Proceed today with week two of Cisplatin Plan for weekly Cisplatin x 4 + concurrent radiation RTC next week with labs same day. AI Assisted AP: 1. 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 Labs show WBC, hemoglobin at 14.7 g/dL, and platelets at 204 x 10^9/L, all within normal limits. No reported nausea, vomiting, fever, or chills. Constipation has improved. Patient reports mild dysuria, but no hematuria. - Continue with scheduled chemotherapy and radiation therapy. - Monitor for any worsening of dysuria; advised patient to report if symptoms worsen. - Follow-up weekly to monitor progress and manage any side effects. 2. Chemotherapy-induced fatigue (R53.83) Patient reports minimal activity but no significant fatigue impacting daily activities. - Encourage maintaining a balanced diet and staying as active as possible. - Monitor for any increase in fatigue during weekly follow-ups. CASE HISTORY: Reverse Chronological Order 09/05/2024- Start weekly Cisplatin concurrent with radiation. 08/11/2024 CT CHEST: IMPRESSION: 5 mm indeterminate left upper lobe nodule. Continued follow-up is recommended. 07/18/2024 - Cystoscopy with TURBT - Specimen #: [id number]: Dr. Edgar Mckinney. Urinary bladder, lower posterior wall, biopsy: - Benign urinary bladder tissue with no significant pathologic change. - Negative for dysplasia or malignancy. - Muscularis propria is not present for evaluation. B. Urinary bladder, left lateral wall, biopsy: - Benign urinary bladder tissue with von Brunn nests. - Negative for dysplasia or malignancy. - Muscularis propria is not present for evaluation. C. Urinary bladder, right lateral wall, biopsy: - Benign urinary bladder tissue with partial mucosal denudation and minor chronic inflammation. - Negative for dysplasia or malignancy. - Muscularis propria is present and negative for neoplasm. D. Urinary bladder, dome, biopsy: - Urothelial carcinoma in situ. - No invasion identified (at least pTis). - Muscularis propria is not present for evaluation. E. Urinary bladder, posterior bladder wall, biopsy: - Urothelial carcinoma, papillary and focally invasive, high-grade. - Focal lamina propria invasion is present (at least pT1). - Muscularis propria is not present for evaluation. 07/11/2024 - MRI Pelvis/Bladder: Irregular mass along the bladder dome involving the full-thickness of the bladder wall with probable extension into the superior perivesical fat (at least stage T2, and likely T3 disease), consistentwith known urinary bladder urothelial neoplasm. No pelvic metastatic disease. 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 More diffuse bladder wall thickening, suggestive chronic outlet obstruction. Prostate volume is approximately 42 mL. 06/02/2024 - Cystoscopy with TURBT: Dr. Micaela Ireland cT2 high-grade muscle invasive urothelial carcinoma 04/19/2024 - CT A/P: Bladder contour regularity/filling defect along the dome of the bladder concerning for urothelial neoplasm. Recommend follow-up with urology. Possible bilateral nephrolithiasis. 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 HPI: Updated Visit, September 12, 2024: Patient is currently undergoing treatment with cisplatin and radiation therapy. He reports that the first treatment of cisplatin was well-tolerated. He denies experiencing nausea,vomiting, fever, or chills. Appetite remains good, and he is eating well. He initially experienced constipation, which has since resolved. He reports a slight increase in burning sensation during urination over the past week but denies hematuria, fever, or chills. He remains somewhat active, walking around the house and sitting on the porch. He expresses mild nervousness about potential cumulative effects of chemotherapy but is otherwise feeling okay. Recent labs show WBC count, hemoglobin at 14.7 g/dL, and platelets at 204,000/ L, all within normallimits. .Updated Visit, September 05, 2024: Bill presents today with his for consideration of week 1 cisplatin concurrent with radiation. He is joined by his Sharda today. Recent labs show normal CBC, kidney and liver function, electrolytes, and magnesium levels. Patientreports no significant issues during radiation therapy and has been educated on cisplatin by Dr. Campbell and MAHNAZ Alegre. He inquires about potential side effects of cisplatin, and immune system suppression, and expressesconcern about using bleach in his septic system for chemotherapy precautions. He also asks about activity restrictions and mentions using cannabis to manage treatment effects, which he has been usingfor over 60 years. He reports anxiety during radiation and inquires about using cannabis gummies for anxiety management. Additionally, he notes a lack of appetite, often going all day without eating until 18:00 or 19:00. Initial Visit, August 10, 2024: Transition of Care Bill Allen presents today to transition his care from main campus to be closer to home. He is joined by his , Kayli. Bill is a 73 year old male who was diagnosed with urothelial carcinoma following a cystoscopy with TURBT in 05/2024. MRI of the pelvis/bladder revealed probable invasion intothe superior perivesical fat. Second cystoscopy was completed on 07/21/[address] Hernández - invasion into the lamina propria was present. CT Chest & consultation with Dr. Real are scheduled for tomorrow. He is in agreement for concurrent chemotherapy (weekly Cisplatin x4) + radiation (20 fractions) as recommended by Dr. Stein. He has been on Coumadin for about 30 years due to a PMHx of bilateral lower extremity DVTs. Will closely monitor INR & platelet count throughout his course of treatment. He is a former cigarette smoker, quit in the s, and a current cannabis smoker. 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 Prior History from Dr. Stein's Progress Note on 08/04/2024: Plan: Follow up CT Chest on 08/16/2024 to complete staging. Provided scheduling number for him to reschedule this at [facility]. Recommend concurrent chemoRT over 4 weeks with weekly cisplatin 40 mg/m2 IV on Days 1,8,15,22 priorto receiving RT (20 fx planned) on those days. Will need Rx for ondansetron 4mg PO q8h PRN for nausea/vomiting once he starts chemoRT. Following completion of treatment, he should proceed with surveillance with urine cytology, cystoscopy, CT C/A/P, and Signatera every 3 months. I have referred him to [facility] [place] ([facility]) to establish care with medical oncology and radiation oncology so that he may receive his care close to home. They will contact him to schedule these appointments. REVIEW OF SYSTEMS Per HPI and otherwise negative by full review of organ systems. ECOG PERFORMANCE STATUS: 1 PHYSICAL EXAMINATION: Vitals: BP 131/79 Pulse 64 Temp (Src) 97.5 (Temporal) Resp 16 Ht 5' 9.528 (1.77m) Wt 219lb 2.2 oz (99.4kg) SpO2 95% BMI 31.87 kg/(m^2). Body surface area is 2.21 meters squared. Exam limited to gross visualization where appropriate. Gen.: This is an age-appropriate patient in no acute distress. Head: Appears atraumatic with no visible lesions. Eyes: Pupils equally round and reactive to light, extraocular muscles are intact. Neck: Supple. Respiratory: Appears to be respiring comfortably. Neurologic: Nonfocal to gross visualization. Alert and oriented 3. Psychiatric: No evidence of inappropriate anxiety or depression. Skin: Visible areas of skin without rash, lesions, wounds or petechiae. ALLERGIES: ALLERGIES No Known Allergies MEDICATIONS: ondansetron (ZOFRAN) 8 mg tablet^Take 1 tablet by mouth every 8 hours as needed for nausea/vomiting.^Disp: 90 tablet^Rfl: 1 prochlorperazine (COMPAZINE) 10 mg tablet^Take 1 tablet by mouth every 6 hours as needed.^Disp: 100tablet^Rfl: 1 multivitamin (VITAMIN DAILY ORAL)^Take 0.5 tablets by mouth once daily.^Disp: ^Rfl: cholecalciferol, vitamin D3, (VITAMIN D3 ORAL)^Take 1 tablet by mouth once daily.^Disp: ^Rfl: Docosahexanoic Acid-Eicosapent (FISH OIL) 120-180 mg capsule^Take 2 g by mouth once daily.^Disp: ^Rfl: lisinopril (ZESTRIL, PRINIVIL) 10 mg tablet^Take by mouth once daily. ^Disp: ^Rfl: warfarin (COUMADIN) 5 mg tablet^Take by mouth daily as directed.^Disp: ^Rfl: metoprolol tartrate, short acting, (LOPRESSOR) 50 mg tablet^Take by mouth twice daily.^Disp: ^Rfl: terazosin (HYTRIN) 5 mg capsule^Take by mouth daily at bedtime.^Disp: ^Rfl: simvastatin (ZOCOR) 40 mg tablet^Take by mouth daily at bedtime.^Disp: ^Rfl: coenzyme Q10 (COQ-10) 100 mg cap capsule^Take by mouth twice daily.^Disp: ^Rfl: Glucosamine Sulfate (GLUCOSAMINE) 500 mg tab^Take 1 tablet by mouth two times a day.^Disp: ^Rfl: LABORATORY VALUES: WBC (k/uL) Date Value 09/12/2024 10.83 RBC (m/uL) Date Value 09/12/2024 5.06 Hemoglobin (g/dL) Date Value 09/12/2024 14.7 Hematocrit (%) Date Value 09/12/2024 43.7 MCV (fL) Date Value 09/12/2024 86.4 MCH (pg) Date Value 09/12/2024 29.1 MCHC (g/dL) Date Value 09/12/2024 33.6 RDW-CV (%) Date Value 09/12/2024 13.1 Platelet Count (k/uL) Date Value 09/12/2024 204 MPV (fL) Date Value 09/12/2024 9.1 Glucose (mg/dL) Date Value 09/12/2024 128 (H) BUN (mg/dL) Date Value 09/12/2024 26 (H) Creatinine (mg/dL) Date Value 09/12/2024 1.10 Sodium (mmol/L) Date Value 09/12/2024 142 Potassium (mmol/L) Date Value 09/12/2024 3.8 Chloride (mmol/L) Date Value 09/12/2024 105 CO2 (mmol/L) Date Value 09/12/2024 27 Protein, Total (g/dL) Date Value 09/12/2024 7.3 Albumin (g/dL) Date Value 09/12/2024 4.3 Calcium, Total (mg/dL) Date Value 09/12/2024 10.2 Alkaline Phosphatase (U/L) Date Value 09/12/2024 94 Bilirubin, Total (mg/dL) Date Value 09/12/2024 0.2 AST (U/L) Date Value 09/12/2024 22 ALT (U/L) Date Value 09/12/2024 32 DIAGNOSIS: (C67.9) 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) (primary encounterdiagnosis) (Z51.11) Encounter for antineoplastic chemotherapy (R53.83, T45.1X5A) Chemotherapy-induced fatigue PAST MEDICAL HISTORY Diagnosis Date BPH (benign prostatic hypertrophy) Bradycardia CAD (coronary artery disease) DVT of lower extremity (deep venous thrombosis) (HCC) bilateral Erectile dysfunction Former smoker 07/11/2024 History of basal cell carcinoma (BCC) 07/11/2024 HLD (hyperlipidemia) HTN (hypertension) Medical marijuana use 07/11/2024 Palpitations Renal artery stenosis Spinal stenosis in cervical region Superior mesenteric artery stenosis (HCC) 04/19/2024 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 Mindi Ireland APRN, EDITOR PRODUCER-C, [facility] Provided at: [place], [place] CC: [place] [id number] [facility], [facility]–1983 [id number] Dayron Cervantes MD [address] [facility] [address] Trevon Real MD documented in this encounterAvita [facility]06-30-[address] [facility]06-27-2025 Telephone encounter Note* Telephone Encounter - Martha Marsh RN - 09/09/2024 11:10 AM EDT CYCLE 1/DAY 1 POST TREATMENT CALL Today's date: September 09, 2024 Treatment Regimen: Cisplatin C1D1 Date: 09/05/24 Called patient to follow-up on symptom management. Spoke with patient. SYMPTOM ASSESSMENT Neuro: Numbness/Weakness/Tingling - Pre-existing neuropathy. No change from baseline. CV/Resp: Cough: Yes; dry and occasional and Edema: in his left lower leg/ankle. Not new. Pt's PCP has been treating. Has diuretic at home he can take as needed. No new edema to report. GI/: Appetite: no changes in appetite, appetite fair, Nausea - Describes as slight Relieved w/ cannabis. , Fluid intake: Reports he drinks at least 80 oz of fluids per day. Fluid intake consists of water, sprite, and juice., Constipation: yes, having daily stools, but reports that they are small and hard. Has OTC laxative he plans to start today., and Bladder/Urinary Changes: Reports the pain and bur mayito w/ urination has resolved. Integument: None Activity: Patient reported his level of fatigue fluctuates. Do you need to take naps? No Pain: Reports minor discomfort in his abdomen. Rates it 1-2/10. Takes Tylenol and Cannabis when needed. Fever: No Chills: No Any new referrals needed? No Reinforced CURRENT treatment education based on current and anticipated symptoms. Discussed port/line care and patient verbalizes understanding: Not Applicable Patient instructed to contact office or after hours Hematology/Oncology fellow for: temperature >= 100.4; questions or concerns. Patient verbalized understanding of when to seek medical attention and after hours number protocol. Martha Marsh RN [facility] Work Phone: [phone]) 542-923206-27-2025 Miscellaneous Notes* Telephone Encounter - Martha Marsh RN - 09/09/2024 11:10 AM EDT CYCLE 1/DAY 1 POST TREATMENT CALL Today's date: September 09, 2024 Treatment Regimen: Cisplatin C1D1 Date: 09/05/24 Called patient to follow-up on symptom management. Spoke with patient. SYMPTOM ASSESSMENT Neuro: Numbness/Weakness/Tingling - Pre-existing neuropathy. No change from baseline. CV/Resp: Cough: Yes; dry and occasional and Edema: in his left lower leg/ankle. Not new. Pt's PCP has been treating. Has diuretic at home he can take as needed. No new edema to report. GI/: Appetite: no changes in appetite, appetite fair, Nausea - Describes as slight Relieved w/ cannabis. , Fluid intake: Reports he drinks at least 80 oz of fluids per day. Fluid intake consists of water, sprite, and juice., Constipation: yes, having daily stools, but reports that they are small and hard. Has OTC laxative he plans to start today., and Bladder/Urinary Changes: Reports the pain and bur mayito w/ urination has resolved. Integument: None Activity: Patient reported his level of fatigue fluctuates. Do you need to take naps? No Pain: Reports minor discomfort in his abdomen. Rates it 1-2/10. Takes Tylenol and Cannabis when needed. Fever: No Chills: No Any new referrals needed? No Reinforced CURRENT treatment education based on current and anticipated symptoms. Discussed port/line care and patient verbalizes understanding: Not Applicable Patient instructed to contact office or after hours Hematology/Oncology fellow for: temperature >= 100.4; questions or concerns. Patient verbalized understanding of when to seek medical attention and after hours number protocol. Martha Marsh RN documented in this encounterAvita Health [facility]06-26-[address] [facility]06-26-2025 History of Present illness Narrative* Trevon eRal MD - 09/08/2024 10:01 PM EDT Radiation Oncology - On Treatment Review (OTR) Note PATIENT NAME: Bill Allen PATIENT DIAGNOSIS: Mr. Allen is a 74-year-old gentleman recently diagnosed with a [id number] urothelial carcinoma of the bladder status post TURBT on 07/18/[address] Hernández noting high-grade urothelial carcinoma from the posterior bladder wall biopsy. MRI of the pelvis from 07/11/2024 noted the irregular mass along the bladder dome involving the full-thickness of the bladder wall with probable extensioninto the perivesicular fat and no other pelvic metastatic disease. Staging workup with CT chest abdomen pelvis was negative and he has opted for nonoperative management with concurrent chemoradiationtherapy COURSE: definitive and concurrent chemotherapy AREA TREATED: Bladder/pelvis CURRENT DOSE: 1100 cGy in 4 fx PLANNED DOSE: 5500 cGy in 20 fx SUBJECTIVE: Tolerating first week of XRT well and reports no significant changes from the time of simulation. He denies any change in his urinary function and denies any hematuria. EXAM: KPS: 90 General Appearance: Alert and oriented. No acute distress. Radiation dermatitis: No IMAGING/LAB RESULTS: None Treatment chart checked: Yes Patient treatment site reviewed and verified:Yes Port films reviewed and current:Yes Medications started: None ASSESSMENT/PLAN: Clinically stable. No signs of toxicity. Continue radiation treatment as planned. We reviewed general precautions/instructions during radiation treatment to the pelvis as well as the potential acute toxicities during treatment and their time course. Discussed the importance of a well-balanced diet, hydration, and exercise/activity as tolerated through the course of treatment. Trevon Real MD documented in this encounterAvita [facility]06-26-2025 Telephone encounter Note * Telephone Encounter - Fawn Sprague MA - 09/08/2024 4:27 PM EDT Lab orders needed for upcoming appointment on 09/12. Fawn Sprague MA [facility]06-26-2025 Miscellaneous Notes* Telephone Encounter - Fawn Sprague MA - 09/08/2024 4:27 PM EDT Lab orders needed for upcoming appointment on 09/12. Fawn Sprague MA documented in this encounterAvita Health System [facility]06-23-2025 Instructions* Patient Instructions* Mindi Ireland APRN.RAILROAD TRACK INSPECTOR - 09/05/2024 11:35 AM EDT We discussed your chemotherapy treatment with cisplatin: - Today is your first day of cisplatin chemotherapy. This is an IV infusion that will be administered through a vein in your arm. The infusion process will take approximately 4 hours. - Cisplatin works by killing both cancer cells and some healthy cells. Your bone marrow will regenerate healthy cells over time. - You may feel tired 7-10 days after treatment as your blood counts may temporarily decrease. This is normal, and we will monitor your labs weekly to ensure your safety. - You are scheduled for 4 cycles of cisplatin chemotherapy, with one treatment per week. - [place]-based chemotherapy drugs like cisplatin can cause a metallic taste in your mouth. To minimize this, avoid using metal utensils or drinking from cans. Use plastic utensils instead. - You may experience some hair thinning, but complete hair loss is unlikely with this treatment. We discussed precautions after chemotherapy: - For the first 24 hours after treatment, chemotherapy can be present in your urine. Since you do not have a separate bathroom, flush the toilet thoroughly after each use. You can also use a disinfectant wipe (e.g., Clorox wipe) to clean the toilet seat and surrounding area, then dispose of the wipe in the trash. Avoid using bleach if it is not compatible with your septic system. We discussed activity and lifestyle during treatment: - Continue your normal activities as much as possible. Daily exercise is encouraged, but rest if you feel tired. - Eating regular, balanced meals is important. Avoid skipping meals, as this can affect your energylevels and overall health. We discussed your lab results: - Your labs today, including your CBC (immune system), kidney function, liver function, electrolytes, and magnesium levels, are all within normal limits. These will be monitored weekly during your treatment. - Cisplatin can sometimes lower magnesium levels, so we will continue to monitor this closely. We discussed your INR and blood thinner management: - You are currently taking Warfarin (Coumadin) and are overdue for an INR test. I have ordered an INR test to be drawn today before your IV is placed. Please follow up with your family doctor, Dr. Hickey, to review the results and adjust your Warfarin dosage if needed. Follow-up: - I will see you next week to review your progress and labs. You will also continue daily radiationtreatments as scheduled. If you have any additional questions or concerns, please let us know. documented in this encounterAvita Health System [facility]06-23-2025 History of Present illness Narrative* Joi Villatoro RN - 09/05/2024 10:50 AM EDTSummary: IRB [id number] Informed Consent CASE [id number] ([id number]): Tissue and Body Fluid Analysis from Patients with Cancer and Other Risk- Associated Lesions Patient seen in clinic for informed consent of the above mentioned protocol. Patient agrees to participate in the above mentioned research study. The patient has signed a copy of the informed consent. Patient has contact information for the study team and Dr. Arianne Stockton M.D. See consent note in Epic. Patient eligible for a pretreatment research blood draw. Joi Villatoro, MSN, RN Research Nurse Coordinator documented in this encounterAvita Health System [facility]06-23-[address] [facility]06-23-2025 NoteHNO ID: [id number] Author: Judie SMITH MD Service: ? Author Type: Physician Type: Progress Notes Filed: 09/05/2024 10:39 Note Text: Films reviewedUniversity Hospitals St. John [facility] Center06-23-2025 History of Present illness Narrative* Judie Smith MD - 09/05/2024 10:39 AM EDT Films reviewed documented in this encounterAvita Health System [facility]06-23-2025 History of Present illness Narrative* Mindi Ireland APRN.VICK - 09/05/2024 10:30 AM EDT Images from the original note were not included. NAME: Bill Allen NO.: [id number] DATE OF SERVICE: .September 05, 2024 (Elizabeth) Referring Provider: Lilliam Stein MD Consultation requested by Dr. Stein for an opinion regarding Mr. Bill Allen, and my final recommendations will be communicated back to the requesting physician by way of shared medical record or letter via US mail. 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 He has elected bladder preservation and will proceed with weekly cisplatin + Radiation over 4 weeks. SUMMARIZED PLAN: Proceed today with week one of Cisplatin Plan for weekly Cisplatin x 4 + concurrent radiation RTC next week with labs same day. AI Assisted AP: 1. 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 Recent labs, including CBC, kidney function, liver function, electrolytes, and magnesium levels, are within normal limits. - Educated patient on cisplatin administration, including potential side effects such as fatigue, metallic taste, and hair thinning. - Advised on precautions for handling bodily fluids post-treatment, including thorough flushing anduse of Clorox wipes. - Encouraged maintaining normal activity levels and a balanced diet. - Scheduled weekly follow-ups to monitor progress and lab results. 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 Hickey. Last INR checkwas several months ago. will follow-up to get INR tested. CASE HISTORY: Reverse Chronological Order 09/05/2024- Start weekly Cisplatin concurrent with radiation. 08/11/2024 CT CHEST: IMPRESSION: 5 mm indeterminate left upper lobe nodule. Continued follow-up is recommended. 07/18/2024 - Cystoscopy with TURBT - Specimen #: [id number]: Dr. Hernández A. Urinary bladder, lower posterior wall, biopsy: - Benign urinary bladder tissue with no significant pathologic change. - Negative for dysplasia or malignancy. - Muscularis propria is not present for evaluation. B. Urinary bladder, left lateral wall, biopsy: - Benign urinary bladder tissue with von Brunn nests. - Negative for dysplasia or malignancy. - Muscularis propria is not present for evaluation. C. Urinary bladder, right lateral wall, biopsy: - Benign urinary bladder tissue with partial mucosal denudation and minor chronic inflammation. - Negative for dysplasia or malignancy. - Muscularis propria is present and negative for neoplasm. D. Urinary bladder, dome, biopsy: - Urothelial carcinoma in situ. - No invasion identified (at least pTis). - Muscularis propria is not present for evaluation. E. Urinary bladder, posterior bladder wall, biopsy: - Urothelial carcinoma, papillary and focally invasive, high-grade. - Focal lamina propria invasion is present (at least pT1). - Muscularis propria is not present for evaluation. 07/11/2024 - MRI Pelvis/Bladder: Irregular mass along the bladder dome involving the full-thickness of the bladder wall with probable extension into the superior perivesical fat (at least stage T2, and likely T3 disease), consistentwith known urinary bladder urothelial neoplasm. No pelvic metastatic disease. 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 More diffuse bladder wall thickening, suggestive chronic outlet obstruction. Prostate volume is approximately 42 mL. 06/02/2024 - Cystoscopy with TURBT: Dr. Micaela Ireland cT2 high-grade muscle invasive urothelial carcinoma 04/19/2024 - CT A/P: Bladder contour regularity/filling defect along the dome of the bladder concerning for urothelial neoplasm. Recommend follow-up with urology. Possible bilateral nephrolithiasis. 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 .Updated Visit, September 05, 2024: Bill presents today with his for consideration of week 1 cisplatin concurrent with radiation. He is joined by his Sharda today. Recent labs show normal CBC, kidney and liver function, electrolytes, and magnesium levels. Patientreports no significant issues during radiation therapy and has been educated on cisplatin by Dr. Campbell and MAHNAZ Alegre. He inquires about potential side effects of cisplatin, and immune system suppression, and expressesconcern about using bleach in his septic system for chemotherapy precautions. He also asks about activity restrictions and mentions using cannabis to manage treatment effects, which he has been usingfor over 60 years. He reports anxiety during radiation and inquires about using cannabis gummies for anxiety management. Additionally, he notes a lack of appetite, often going all day without eating until 18:00 or 19:00. Initial Visit, August 10, 2024: Transition of Care Bill Allen presents today to transition his care from main campus to be closer to home. He is joined by his , Kayli. Bill is a 73 year old male who was diagnosed with urothelial carcinoma following a cystoscopy with TURBT in 05/2024. MRI of the pelvis/bladder revealed probable invasion intothe superior perivesical fat. Second cystoscopy was completed on 07/21/[address] Hernández - invasion into the lamina propria was present. CT Chest & consultation with Dr. Rela are scheduled for tomorrow. He is in agreement for concurrent chemotherapy (weekly Cisplatin x4) + radiation (20 fractions) as recommended by Dr. Stein. He has been on Coumadin for about 30 years due to a PMHx of bilateral lower extremity DVTs. Will closely monitor INR & platelet count throughout his course of treatment. He is a former cigarette smoker, quit in the s, and a current cannabis smoker. He is retired from [employer]. Prior History from Dr. Stein's Progress Note on 08/04/2024: Plan: Follow up CT Chest on 08/16/2024 to complete staging. Provided scheduling number for him to reschedule this at [facility]. Recommend concurrent chemoRT over 4 weeks with weekly cisplatin 40 mg/m2 IV on Days 1,8,15,22 priorto receiving RT (20 fx planned) on those days. Will need Rx for ondansetron 4mg PO q8h PRN for nausea/vomiting once he starts chemoRT. Following completion of treatment, he should proceed with surveillance with urine cytology, cystoscopy, CT C/A/P, and Signatera every 3 months. I have referred him to [facility] ([facility]) to establish care with medical oncology and radiation oncology so that he may receive his care close to home. They will contact him to schedule these appointments. REVIEW OF SYSTEMS Per HPI and otherwise negative by full review of organ systems. ECOG PERFORMANCE STATUS: 1 PHYSICAL EXAMINATION: Vitals: BP 137/79 Pulse 68 Temp (Src) 97.4 (Temporal) Resp 18 Wt 215 lb 9.8 oz (97.8kg) SpO2 98% Body surface area is 2.17 meters squared. Exam limited to gross visualization where appropriate. Gen.: This is an age-appropriate patient in no acute distress. Head: Appears atraumatic with no visible lesions. Eyes: Pupils equally round and reactive to light, extraocular muscles are intact. Neck: Supple. Respiratory: Appears to be respiring comfortably. Neurologic: Nonfocal to gross visualization. Alert and oriented 3. Psychiatric: No evidence of inappropriate anxiety or depression. Skin: Visible areas of skin without rash, lesions, wounds or petechiae. ALLERGIES: ALLERGIES No Known Allergies MEDICATIONS: ondansetron (ZOFRAN) 8 mg tablet^Take 1 tablet by mouth every 8 hours as needed for nausea/vomiting.^Disp: 90 tablet^Rfl: 1 prochlorperazine (COMPAZINE) 10 mg tablet^Take 1 tablet by mouth every 6 hours as needed.^Disp: 100tablet^Rfl: 1 multivitamin (VITAMIN DAILY ORAL)^Take 0.5 tablets by mouth once daily.^Disp: ^Rfl: cholecalciferol, vitamin D3, (VITAMIN D3 ORAL)^Take 1 tablet by mouth once daily.^Disp: ^Rfl: Docosahexanoic Acid-Eicosapent (FISH OIL) 120-180 mg capsule^Take 2 g by mouth once daily.^Disp: ^Rfl: lisinopril (ZESTRIL, PRINIVIL) 10 mg tablet^Take by mouth once daily. ^Disp: ^Rfl: warfarin (COUMADIN) 5 mg tablet^Take by mouth daily as directed.^Disp: ^Rfl: metoprolol tartrate, short acting, (LOPRESSOR) 50 mg tablet^Take by mouth twice daily.^Disp: ^Rfl: terazosin (HYTRIN) 5 mg capsule^Take by mouth daily at bedtime.^Disp: ^Rfl: simvastatin (ZOCOR) 40 mg tablet^Take by mouth daily at bedtime.^Disp: ^Rfl: coenzyme Q10 (COQ-10) 100 mg cap capsule^Take by mouth twice daily.^Disp: ^Rfl: Glucosamine Sulfate (GLUCOSAMINE) 500 mg tab^Take 1 tablet by mouth two times a day.^Disp: ^Rfl: LABORATORY VALUES: WBC (k/uL) Date Value 09/05/2024 10.19 RBC (m/uL) Date Value 09/05/2024 5.24 Hemoglobin (g/dL) Date Value 09/05/2024 15.2 Hematocrit (%) Date Value 09/05/2024 45.3 MCV (fL) Date Value 09/05/2024 86.5 MCH (pg) Date Value 09/05/2024 29.0 MCHC (g/dL) Date Value 09/05/2024 33.6 RDW-CV (%) Date Value 09/05/2024 13.3 Platelet Count (k/uL) Date Value 09/05/2024 202 MPV (fL) Date Value 09/05/2024 9.3 Glucose (mg/dL) Date Value 09/05/2024 138 (H) BUN (mg/dL) Date Value 09/05/2024 22 Creatinine (mg/dL) Date Value 09/05/2024 1.07 Sodium (mmol/L) Date Value 09/05/2024 139 Potassium (mmol/L) Date Value 09/05/2024 3.9 Chloride (mmol/L) Date Value 09/05/2024 105 CO2 (mmol/L) Date Value 09/05/2024 23 Protein, Total (g/dL) Date Value 09/05/2024 7.2 Albumin (g/dL) Date Value 09/05/2024 4.4 Calcium, Total (mg/dL) Date Value 09/05/2024 9.9 Alkaline Phosphatase (U/L) Date Value 09/05/2024 97 Bilirubin, Total (mg/dL) Date Value 09/05/2024 0.3 AST (U/L) Date Value 09/05/2024 21 ALT (U/L) Date Value 09/05/2024 23 DIAGNOSIS: (C67.9) 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) (primary encounterdiagnosis) Plan: PROTHROMBIN TIME (Z51.11) Encounter for antineoplastic chemotherapy (Z79.01) 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 PAST MEDICAL HISTORY Diagnosis Date BPH (benign prostatic hypertrophy) Bradycardia CAD (coronary artery disease) DVT of lower extremity (deep venous thrombosis) (HCC) bilateral Erectile dysfunction Former smoker 07/11/2024 History of basal cell carcinoma (BCC) 07/11/2024 HLD (hyperlipidemia) HTN (hypertension) Medical marijuana use 07/11/2024 Palpitations Renal artery stenosis Spinal stenosis in cervical region Superior mesenteric artery stenosis (HCC) 04/19/2024 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 Mindi Ireland APRN, EDITOR PRODUCER-C, [facility] Provided at: [place], [place] CC: [place] [id number] [facility] [address] Dayron Cervantes MD [address] [facility] [address] Trevon Real MD documented in this encounterAvita [facility]06-23-[address] [facility]06-23-2025 Telephone encounter Note* Telephone Encounter - Mellisa Frausto MA - 09/05/2024 8:06 AM EDT Patient coming in today Thursday09/05/24 for follow up treatment. Please add lab orders. Thanks. Mellisa Frausto MA [facility]06-20-2025 History of Present illness Narrative* Dayron Crevantes MD - 09/02/2024 10:57 AM EDTAssociated Problem(s): Venous insufficiency Start lasix PRN. Elevate legs and try compression. If no change can refer to vein center. 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 * Dayron Cervantes MD - 09/02/2024 10:57 AM EDTAssociated Problem(s): Medicare annual wellness visit, subsequent Reviewed recent labs. Discussed proper diet and regular aerobic exercise. Need aerobic exercise 5-6days a week for 30 minutes at a time. Smaller portions and limit total calories. Cologuard normal September 2023. Tetanus every 10 years. Advised not to smoke. * Dayron Cervantes MD - 09/02/2024 10:30 AM EDT Images from the original note were not included. Subjective Patient ID: Bill Allen is a 74 y.o. male who presents for Follow-up (Foot swellig) and Medicare Annual Wellness Visit Subsequent (wellness). Presents for medicare annual wellness visit. Patient stable today. Weight down 6 pounds in the pastyear. Very difficult to stay active due to back pain. Tries to use bike several days a week. Tries to watch diet and eat healthy. Increased fruits and vegetables. Smaller portions and limits snacking. Tries to limit total daily calories. Following with urology and oncology for bladder cancer. Will start chemo and radiation next week. C/o edema of left leg for months. Swelling worse as day progress and improved with elevation. Bulging veins in left ankle. Review of Systems Constitutional: Negative for fatigue. [...] There is no guarding or rebound. Musculoskeletal: General: Normal range of motion. Left lower leg: No edema. Neurological: General: No focal deficit present. Mental Status: He is alert. Cranial Nerves: No cranial nerve deficit. Deep Tendon Reflexes: Reflexes normal. 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 Medicare annual wellness visit, subsequent - Primary Reviewed recent labs. Discussed proper diet and regular aerobic exercise. Need aerobic exercise 5-6days a week for 30 minutes at a time. Smaller portions and limit total calories. Cologuard normal September 2023. Tetanus every 10 years. Advised not to smoke. Venous insufficiency Start lasix PRN. Elevate legs and try compression. If no change can refer to vein center. Relevant Medications furosemide (Lasix) 40 MG tablet documented in this encounterGolden Valley Memorial [id number] History of Present illness Narrative* Dat France, DO - 08/26/2024 10:15 AM EDT Subjective Patient ID: Bill Allen is a 74 y.o. male who presents for 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 HPI This patient presents for evaluation of Mohs defect of the left external ear. Underwent excision ofsquamous cell carcinoma in this area. Left with a soft tissue defect over the area of the left antihelical fold. Presents today for recheck of his progress of healing Review of Systems Patient has recovered from Mohs reconstruction in the area of the left mormon. Denies any pain or drainage from the area of his recent surgery. He is scheduled for treatment for bladder cancer in thenear future. The rest of his review of systems is unchanged Allergies as of 08/26/2024 (No Known Allergies) Past Medical History: Diagnosis Date Arthritis Basal cell carcinoma Benign prostatic hyperplasia 05/16/2024 Former smoker 07/11/2024 Former tobacco use 05/25/2024 Gastroesophageal reflux disease 06/02/2024 History of basal cell carcinoma (BCC) 07/11/2024 Hypercholesterolemia 07/11/2024 Hypertension Medical marijuana use 07/11/2024 Postoperative pain 05/25/2024 Squamous cell skin cancer 07/07/2024 Left anti-tragus, Mohs by Dr. Chung and repair by Dr. 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) 08/10/2024 Current Outpatient Medications: cholecalciferol (Vitamin D-3) 50 MCG (1999 UT) capsule, Take 2,000 Units by mouth Daily, Disp: , Rfl: coenzyme Q-10 100 MG capsule, Take 1 capsule by mouth 1 (one) time each day at the same time, Disp:, Rfl: Xaosahufsbo-Jrerydlyu-Glp C-Mn (Glucosamine 1500 Complex) capsule, Take 1 capsule by mouth Daily, Disp: , Rfl: lisinopril 20 MG tablet, Take 1 tablet (20 mg) by mouth Daily, Disp: 90 tablet, Rfl: 3 metoprolol tartrate (Lopressor) 50 MG tablet, Take 1 tablet (50 mg) by mouth in the morning and 1 tablet (50 mg) before bedtime., Disp: 180 tablet, Rfl: 3 multivitamin (Theragran) tablet, Take 1 tablet by mouth Daily, Disp: , Rfl: omega-3 (FISH OIL) 300 MG capsule, Take 300 mg by mouth Daily, Disp: , Rfl: pneumococcal conjugate 20-valent (Prevnar 20) 0.5 ML vaccine, , Disp: , Rfl: simvastatin (Zocor) 20 MG tablet, Take 1 tablet (20 mg) by mouth at bedtime, Disp: 90 tablet, Rfl: 3 terazosin (Hytrin) 10 MG capsule, Take 1 capsule (10 mg) by mouth at bedtime, Disp: 90 capsule, Rfl: 3 warfarin (Coumadin) 5 MG tablet, Take 1 tablet daily, Disp: 90 tablet, Rfl: 3 cephalexin (Keflex) 500 MG capsule, Take 1 capsule by mouth, bid x 10 days. (Patient not taking: Reported on 08/26/2024), Disp: 20 capsule, Rfl: 0 Past Surgical History: Procedure Laterality Date WOUND DEBRIDEMENT 05/18/2024 Mohs repair left mormon Social History Socioeconomic History Marital status: Spouse name: Not on file Number of children: Not on file Years of education: Not on file Highest education level: Not on file Occupational History Not on file Tobacco Use Smoking status: Never Smokeless tobacco: Never Vaping Use Vaping status: Every Day Substances: THC Substance and Sexual Activity Alcohol use: Never [...] overview: Normal, age-appropriate, no evidence of distress Head: Normocephalic, the area of recent repair in the left temporal region has healed up very nicely. Eyes: Pupils are equally round and reactive to light and accommodation, extraocular muscles are intact Ears: External ear architecture shows a 1 x 2.5 cm soft tissue defect in the area of the anti helical fold on the left. There is almost complete healing with no exposure of cartilage at this time No evidence of infection., ear canals are patent, tympanic membranes are intact. Pathology was positivefor squamous carcinoma. Nose: External nose unremarkable, nares patent, septum [...] orders for this visit: Mohs defect of mormon region Comments: Patient has noticed some texture change in the area of his flap reconstruction. Will follow-up withdermatology 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 Comments: To have healed in quite nicely. No exposed cartilage. Recheck as needed documented in this encounterGolden Valley Memorial [id number] [facility]06-05-2025 History of Present illness Narrative* Trevon Real MD - 08/18/2024 11:37 PM EDT Radiation Oncology - Follow Up Note PATIENT NAME: Bill Allen PATIENT Signed by: Trevon Real MD I spent a total of 10 minutes on the date of the service which included preparing to see the patient, [id number] patient care, and counseling and educating the patient/family/caregiver. This document has been created with the use of voice recognition technology. It may contain inaccuracies, misspellings, inaccurate syntax or inappropriate word context that are a result of the inadequacies/shortcomings of said technology/software. documented in this encounterAvita Health System [facility]06-05-2025 Telephone encounter Note * Telephone Encounter - India Wagner - 08/18/2024 4:34 PM EDT Patient scheduled to begin on 09/05 and has been scheduled and notified. India Wagner [facility]06-05-2025 Miscellaneous Notes* Telephone Encounter - India Wagner - 08/18/2024 4:34 PM EDT Patient scheduled to begin on 09/05 and has been scheduled and notified. India Wagner * Telephone Encounter - India Wagner - 08/11/2024 2:25 PM EDT Patient scheduled for ed prior to SIM on , 08/18. India Wagner * Telephone Encounter - India Wagner - 08/11/2024 1:32 PM EDT SIM being rescheduled due to AVANI being out of the office. India Wagner * Telephone Encounter - India Wagner - 08/10/2024 3:34 PM EDT Hi! Can you please let us know when patient is scheduled to begin? Thank you! 2. Plan for weekly Cisplatin x4 + concurrent radiation a. RTC with clinician on day of start - Labs same day Will also need scheduled for education. Sis is off tomorrow and Thursday. India Wagner documented in this encounterAvita Health System Galion Hospital06-05-[address] [facility]06-05-2025 History of Present illness Narrative* Martha Marsh RN - 08/18/2024 10:47 AM EDT Shrimp Cleaner Pre Chemo Patient identified by name and date of . YES Confirmed date and time for chemotherapy ? YES Other appointments (labs, imaging) discussed? YES Discussed where to park (director of psychiatry), charge for parking NO Discussed where to report (building/floor) YES Any pre-medications ordered? NO Described the infusion room and what to expect. (What to wear, what to bring [iPad, books] amount of time treatment can take, meals and CC options for food) YES Note: NA Discussed whether the patient can eat prior to labs and treatment. YES Who is driving you to and from treatment? Spouse Discussed why it is important to bring someone with you. Yes, Resources discussed (music therapy, Art therapy, pet therapy, etc.) YES Education on chemotherapy (drug, side effects) discussed and that the patient will be receiving a C1D1 call within 7 days of treatment. YES Other topics discussed, interventions needed: FRANCISCO Marsh RN * Martha Marsh RN - 08/18/2024 10:42 AM EDT ONCOLOGY PATIENT EDUCATION NOTE TOPIC: Chemotherapy, Medications: Cisplatin patient here today for education for treatment of Bladder Cancer Anticipated/Scheduled start date: Pending start date of radiation. READINESS TO LEARN: COGNITIVE ABILITY: Alert and oriented MOTIVATION TO LEARN: Interested FAMILY SUPPORT: Unable to assess - Family not present INSTRUCTION PROVIDED TO: Patient INSTRUCTION PROVIDED BY: Nurse Coordinator PATIENT LEARNS BEST BY: Multiple Methods FACTORS AFFECTING LEARNING: None PHYSICAL LIMITATIONS AFFECTING LEARNING: None LEARNING RESPONSE METHOD OF INSTRUCTION: Individual instruction Written instruction/Handouts Verbal instruction PATIENT/FAMILY RESPONSE: Verbalizes understanding of: CHEMOTHERAPY-Regimen, toxicity and side effects INFECTION MANAGEMENT-Signs and symptoms of an infection and importance of contacting the physician POST-PROCEDURE INSTRUCTIONS-Correct actions to take to reduce post procedure complications SYMPTOM MANAGEMENT-Correct actions to take to manage symptoms associated with his/her disease/illness WORSENING CONDITION-Signs and symptoms of a worsening condition that warrant a call to the physician Information received as demonstrated by interest and questions FOLLOW UP PLAN: Patient instructed to call with any further issues Contact information given. SUPPLEMENTAL MATERIAL: Written material was provided at this visit with the following information: - Chemotherapy education was provided by a pharmacist NO - Side effect management information was provided/discussed including but not limited to: anemia, appetite changes, arthralgia, bowel habit changes, diet, electrolyte disturbances, fatigue, hair loss, hearing impairment, infection, kidney toxicity, myalgia, nausea/vomitting, neutropenia, peripheralneuropathy, taste changes, thrombocytopenia YES - Provided important phone numbers and contacts during and after hours. YES - Provided information on symptoms that require immediate assistance. YES - Provided Chemotherapy when to call handouts YES - Preventing infection. YES - Treatment schedule and confirmation of appointment times. YES - Available support groups. YES - The importance of contraception during the course of chemotherapy YES - Prescriptions for anti-emetics or treatment prep was given: Compazine and Zofran. YES - Neutropenic fever protocol discussed with patient, which included the importance of reporting anyfever of 100.4F (38.0C) or greater to the healthcare team as noted on the provided wallet card and/or magnet. YES - 4th Sandoval Information. YES - Patient services information. YES Time Spent: 40 minutes REFERRAL (RECOMMENDATION): N/A Martha Marsh RN documented in this encounterAvita Health System Gal[facility]06-05-[address] [facility]06-05-2025 Miscellaneous Notes* Addendum Note - Gabriela Pedersen RPh - 08/18/2024 10:41 AM EDTAddended by: GABRIELA PEDERSEN on: 08/18/2024 11:08 AM Modules accepted: Orders documented in this encounterAvita Health System Galion Hospital06-05-2025 Note* Addendum Note - Gabriela Pedersen RPh - 08/18/2024 10:41 AM EDTAddended by: GABRIELA PEDERSEN on: 08/18/2024 11:08 AM Modules accepted: Orders [facility] Work Phone: 1(693) 934-633706-05-2025 History of Present illness Narrative* Trevon Real MD - 08/18/2024 12:00 AM EDT BILL ALLEN [id number] 08/18/2024 [facility] Radiation Oncology Department SIMULATION NOTE DATE OF SIMULATION: 08/18/2024 THERAPIST: Lin Carrizalesaine MACHINE: [employer] DIAGNOSIS: Malignant neoplasm of overlapping sites of cjjnmnfU64.8 AREA: PELVIS CONTRAST: IV Oral 100ML OF OMNI 300 WAS ADMINISTERED VIA THE LT WRIST 25ML OF OMNI 300WAS DILUTED IN 425ML OF WATER AND GIVEN ORALLY TO THE PATIENT 1 HOUR PRIOR TO SCANNING Consent in Epic: Yes PATIENT POSITION: Supine. FIXATION DEVICE: In order to achieve accurate and reproducible treatments, the patient is immobilized with THE ORFIT AIO SYSTEM. A time-out was conducted and recorded by the therapist. CT scan was completed for target localization and planning. Field arrangement will be determined after plan has been completed. The patient is scheduled for a verification simulation on the treatment machine to ensure proper set-up and field arrangement is correct prior to the first treatment of primary and boost anguiano if applicable. Patient education will be completed per nursing. Electronically Signed Trevon Real M.D. / CDT 58:24 PM documented in this encounterAvita Health System Galion Hospital06-05-2025 History of Present illness Narrative* Trevon Real MD - 08/18/2024 12:00 AM EDT BILL ALLEN [id number] 08/18/2024 [facility] - Department of Radiation Oncology Treatment Planning Note For reasons stated in the consult note, Bill Allen is a candidate for radiation therapy. Based onreview and interpretation of the relevant diagnostic studies together with the exam findings, Bill Allen was simulated on 08/18/2024 at which time the target volume and/or requisite anguiano were delineated, as indicated in the simulation note, to be treated according to the prescription. The treatment target and organs at risk were contoured on the simulation scan. Special consideration to these and other structures was given in light of the potential for increased toxicities of combined chemoradiation. After reviewing multiple treatment plans with dosimetry, the best plan was approved to deliver the prescribed course of radiation to the target area using inverse planning to allow for the best isodose distribution, treating to the 97.8% isodose line with 10MV and 2 anguiano. Custom MLC asym jaws forIMRT were the treatment devices used to shape/modify the beams. Limiting dose to normal tissue was confirmed upon review of the calculated dose volume histogram. IMRT planning was used because it best met the dose/volume constraints for the organs at risk for this patient, better than what could be achieved using conventional or 3D planning. The specific doserequirements for the PTV, organs at risk and dose-volume histograms are contained in this treatmentplan and/or elsewhere in the medical record. A completed summary of this plan dated 09/01/2024 incorporated herein by reference includes dose, beam arrangements, energy, blocking, isodose distribution, and/or ports and DVH. Electronically Signed Trevon Real M.D. :22 AM documented in this encounterAvita Health System [facility]06-05-[address] [facility]06-05-[address] [facility]06-04-2025 Telephone encounter Note* Telephone Encounter - Funmi Gonzalez RN - 08/17/2024 1:25 PM EDT I reminded Bill of his SIM appt and instructions tomorrow with an arrival time of 9:45. Patient denies questions at this time. Funmi Gonzalez RN [facility]06-04-2025 Miscellaneous Notes* Telephone Encounter - Funmi Gonzalez RN - 08/17/2024 1:25 PM EDT I reminded Bill of his SIM appt and instructions tomorrow with an arrival time of 9:45. Patient denies questions at this time. Funmi Gonzalez RN documented in this encounterAvita Health System [facility]06-03-2025 Telephone encounter Note * Telephone Encounter - Martha Marsh RN - 08/16/2024 8:25 AM EDT Pt will be in tomorrow for education. Scripts for antiemetics pended. Martha Marsh RN [facility] Work Phone: [phone] Miscellaneous Notes* Telephone Encounter - Martha Marsh RN - 08/16/2024 8:25 AM EDT Pt will be in tomorrow for education. Scripts for antiemetics pended. Martha Marsh RN documented in this encounterAvita Health System Gal[facility] Hospital05-30-2025 Telephone encounter Note * Telephone Encounter - Diane Whittaker - 08/12/2024 12:07 PM EDT Patient called back and confirmed day and time. LUIS Foster [facility]05-30-2025 Miscellaneous Notes* Telephone Encounter - Diane Whittaker - 08/12/2024 12:07 PM EDT Patient called back and confirmed day and time. LUIS Foster * Telephone Encounter - Elana Luo HUC - 08/12/2024 9:55 AM EDT I scheduled the Patient for 08/18/24 at 945 am for Nurse Visit for Oral Contrast and 1030 for Pre SimConsent. I reached out to the Patient and left him a VM with the Information and to call back and confirm appointment date and time. LUIS Verma * Telephone Encounter - Lanette Wilcox RT(R) - 08/11/2024 1:58 PM EDT Sim scheduled for 08/18/24 at 11am PSS - please schedule presim consent with AVANI at 1030 (not signed yet) & notify pt of 945 arrival time for oral contrast Thanks! Lanette Wilcox RT(R)(T) * Telephone Encounter - Ruma Lugo RN - 08/11/2024 11:[address] Real is out of the office on 08/15 and 08/16. Thank you Ruma Lugo, RN * Telephone Encounter - Lanette Wilcox RT(R) - 08/11/2024 11:38 AM EDT Sim scheduled at 130 on 08/16/24 PSS - please schedule nurse visit at 1230 & notify pt of 1215 arrival time Thanks! Lanette Wilcox RT(R)(T) * Telephone Encounter - Elana Luo HUC - 08/11/2024 11:08 AM EDT I added and checked in for Radiation Education today 08/11/24. LUIS Verma * Telephone Encounter - Ruma Lugo, RN - 08/11/2024 11:00 AM EDT Return for Simulation Treating Pelvis Small Bowel Oral Contrast Bladder comfortably full IV Contrast Consent is Signed Will need Nurse visit for IV Rad Ed today Ruma Lugo, RN documented in this encounterAvita Health System Gal[facility] Hospital05-30-2025 Telephone encounter Note * Telephone Encounter - Elana Luo HUC - 08/12/2024 9:55 AM EDT I scheduled the Patient for 08/18/24 at 945 am for Nurse Visit for Oral Contrast and 1030 for Pre SimConsent. I reached out to the Patient and left him a VM with the Information and to call back and confirm appointment date and time. LUIS Verma [facility]05-29-[address] [facility]05-29-2025 History of Present illness Narrative* Trevon Real MD - 08/11/2024 11:58 PM EDT Images from the original note were not included. Radiation Oncology - New Patient/Consult Note PATIENT NAME: Bill Allen PATIENT Signed: Trevon Real MD I spent a total of 60 minutes on the date of the service which included preparing to see the patient, [id number] patient care, and counseling and educating the patient/family/caregiver. This document has been created with the use of voice recognition technology. It may contain inaccuracies, misspellings, inaccurate syntax or inappropriate word context that are a result of the inadequacies/shortcomings of said technology/software. * Ruma uLgo RN - 08/11/2024 9:51 AM EDT Pacemaker/Defibrillator? No Previous Cancer(s)? Yes, Basal Cell Previous Radiation? no Lupus/Scleroderma? no On body monitoring device? No Ruma Lugo RN documented in this encounterAvita Health System [facility]05-29-2025 Telephone encounter Note * Telephone Encounter - India Wagner - 08/11/2024 2:25 PM EDT Patient scheduled for ed prior to SIM on , 08/18. India Wagner [facility]05-29-2025 Telephone encounter Note* Telephone Encounter - Lanette Wilcox RT(R) - 08/11/2024 1:58 PM EDT Sim scheduled for 08/18/24 at 11am PSS - please schedule presim consent with AVANI at 1030 (not signed yet) & notify pt of 945 arrival time for oral contrast Thanks! RT Dyan(R)(T) [facility] Work Phone: [phone] Telephone encounter Note* Telephone Encounter - India Wagner - 08/11/2024 1:32 PM EDT SIM being rescheduled due to AVANI being out of the office. India Wagner [facility]05-29-2025 Telephone encounter Note* Telephone Encounter - Ruma Lugo RN - 08/11/2024 11:[address] Real is out of the office on 08/15 and 08/16. Thank you Ruma Lugo RN [facility]05-29-2025 Telephone encounter Note* Telephone Encounter - Lanette Wilcox RT(R) - 08/11/2024 11:38 AM EDT Sim scheduled at 130 on 08/16/24 PSS - please schedule nurse visit at 1230 & notify pt of 1215 arrival time Thanks! Lanette Wilcox RT(R)(T) [facility]05-29-[address] [facility] [facility] History of Present illness Narrative* Ruma Lugo RN - 08/11/2024 11:12 AM EDT Radiation Therapy - Patient Education Note PATIENT NAME: Bill Allen PATIENT August 11, 2024 [facility] FACILITY/LOCATION: [facility] READINESS TO LEARN Cognitive Ability: Alert and oriented Motivation to learn: Eager Family Support: High - Very involved in pt care Instruction provide to: Patient and Family member Patient learns best by: Written Instruction - Hand-outs Factors effecting learning: None Physical limitations effecting learning: None LEARNING RESPONSE Diagnosis: Pt educated today for radiation therapy to pelvis. Education Topic/Teaching Points: Radiation therapy, Side effects, and OTV: Method of instruction: Written instruction/Handouts Patient /Family response: Patient and family verbalized understanding of radiation treatments, sideeffects, OTV, and transportation. Follow-up plan: Recommend - Recommend continued instruction and follow up as directed Supplemental material: Informational handouts on Diarrhea and Pelvic handout. BINDER GIVEN Referral (recommendation): None, Pt denied need for social work, van service, and water plumber. Patient has an Onbody or Implanted device: No Signed by: Ruma Lugo RN documented in this encounterAv[facility] Telephone encounter Note * Telephone Encounter - Elana Luo HUC - 08/11/2024 11:08 AM EDT I added and checked in for Radiation Education today 08/11/24. LUIS Verma [facility]05-29-2025 Telephone encounter Note* Telephone Encounter - Ruma Lugo RN - 08/11/2024 11:00 AM EDT Return for Simulation Treating Pelvis Small Bowel Oral Contrast Bladder comfortably full IV Contrast Consent is Signed Will need Nurse visit for IV Rad Ed today Ruma Lugo RN [facility]05-29-[address] [facility]-29-2025 History of Present illness Narrative* Caty Villatoro RN - 08/11/2024 7:45 AM EDT Radiology Service Progress Note DATE OF SERVICE: August 11, 2024 TIME: 7:56 AM PATIENT WEIGHT: 220LBS PATIENT IDENTITY VERIFICATION COMPLETED USING TWO (2) STANDARD IDENTIFIERS: Name and Date of confirmed by patient verbally. FALL SCREENING: Has the patient had 2 falls in the last year or 1 fall with injury or currently using an Ambulatory Assistive Device (Walker, Cane, Wheelchair, Crutches, etc.)? No PATIENT GENDER DATA: Assigned male at ALLERGIES: Reviewed and unchanged CONTRAST ALLERGY: No EXAM: CT -CONTRAST INDUCED NEPHROPATHY RISK FACTORS: Patient age > 60 years CREATININE: Creatinine Date Value Ref Range Status 07/11/2024 1.00 0.73 - 1.22 mg/dL Final Estimated Glomerular Filtration Rate Date Value Ref Range Status 07/11/2024 79 >=60 mL/min/1.73m Final Comment: Estimated Glomerular Filtration Rate (eGFR) is calculated using the 2020 CKD-EPI creatinine equation. This equation utilizes serum creatinine, sex, and age as parameters. The creatinine assay has traceable calibration to isotope dilution- mass spectrometry. Refer to KDIGO guidelines for clinical interpretation. In patients with unstable renal function, e.g. those with acute kidney injury, the eGFRmay not accurately reflect actual GFR. P.O.C.T. RESULTS: POC done: Yes, See Lab Tab August 11, 2024 TREATMENT: N/A IV SITE: Ambulatory: A peripheral IV was started in the Left antecubital site with a Angio cath: 20gauge. IV SITE APPEARANCE: Clean,Dry and Intact SIGNATURE: Caty Villatoro RN PATIENT NAME: Bill Allen DATE: August 11, 2024 TIME: 7:56 AM * Rona Montiel RT(R) - 08/11/2024 7:45 AM EDT Radiology Service Progress Note PATIENT NAME: Bill Allen DATE OF SERVICE: August 11, 2024 TIME: 7:44 AM PATIENT IDENTITY VERIFICATION COMPLETED USING TWO (2) IDENTIFIERS: Name and Date of confirmedby patient verbally. FALL SCREENING: Has the patient had 2 falls in the last year or 1 fall with injury or currently using an Ambulatory Assistive Device (Walker, Cane, Wheelchair, Crutches, etc.)? No PATIENT GENDER DATA: Assigned male at PATIENT RELEVANT IMPLANT DATA REVIEWED: Not Applicable PATIENT PRESENTS WITH AN IMPLANTABLE OR ATTACHED CHALKER SOLES: No RADIOLOGY DEPARTMENT: CT; Exam(s) Completed: Chest PERIPHERAL IV DATA: Site assessment: Clean,Dry and Intact, Site disposition Discontinued 20g left ac SIGNED BY: RT Kendra(R) August 11, 2024 7:44 AM documented in this encounterAvita [facility]05-29-[address] [facility]05-29-[address] [facility]05-28-2025 Telephone encounter Note* Telephone Encounter - India Wagner - 08/10/2024 3:34 PM EDT Hi! Can you please let us know when patient is scheduled to begin? Thank you! 2. Plan for weekly Cisplatin x4 + concurrent radiation a. RTC with clinician on day of start - Labs same day Will also need scheduled for education. Sis is off tomorrow and Thursday. Idnia Wagner [facility]05-28-2025 Instructions* Patient Instructions* Glendy Mendez - 08/10/2024 3:[address] Chest and consult with radiation as scheduled tomorrow Needs labs same day Plan for weekly Cisplatin x4 + concurrent radiation RTC with clinician on day of start - Labs same day documented in this encounterAvita Health [facility]05-28-2025 History of Present illness Narrative* Arianne Stockton MD - 08/10/2024 3:00 PM EDT Images from the original note were not included. NAME: Bill Allen INGRID NO.: [id number] DATE OF SERVICE: August 10, 2024 (Kath) Referring Provider: Lilliam Stein MD Consultation requested by Dr. Stein for an opinion regarding Mr. Bill Allen, and my final recommendations will be communicated back to the requesting physician by way of shared medical record or letter via US mail. 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 He has elected bladder preservation and will proceed with weekly cisplatin + Radiation over 4 weeks. PLAN: CT Chest and consult with radiation as scheduled tomorrow Needs labs same day Plan for weekly Cisplatin x 4 + concurrent radiation RTC with clinician on day of start - Labs same day HPI: CASE HISTORY: Reverse Chronological Order 07/18/2024 - Cystoscopy with TURBT - Specimen #: [id number]: Dr. Hernández A. Urinary bladder, lower posterior wall, biopsy: - Benign urinary bladder tissue with no significant pathologic change. - Negative for dysplasia or malignancy. - Muscularis propria is not present for evaluation. B. Urinary bladder, left lateral wall, biopsy: - Benign urinary bladder tissue with von Brunn nests. - Negative for dysplasia or malignancy. - Muscularis propria is not present for evaluation. C. Urinary bladder, right lateral wall, biopsy: - Benign urinary bladder tissue with partial mucosal denudation and minor chronic inflammation. - Negative for dysplasia or malignancy. - Muscularis propria is present and negative for neoplasm. D. Urinary bladder, dome, biopsy: - Urothelial carcinoma in situ. - No invasion identified (at least pTis). - Muscularis propria is not present for evaluation. E. Urinary bladder, posterior bladder wall, biopsy: - Urothelial carcinoma, papillary and focally invasive, high-grade. - Focal lamina propria invasion is present (at least pT1). - Muscularis propria is not present for evaluation. 07/11/2024 - MRI Pelvis/Bladder: Irregular mass along the bladder dome involving the full-thickness of the bladder wall with probable extension into the superior perivesical fat (at least stage T2, and likely T3 disease), consistentwith known urinary bladder urothelial neoplasm. No pelvic metastatic disease. 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 More diffuse bladder wall thickening, suggestive chronic outlet obstruction. Prostate volume is approximately 42 mL. 06/02/2024 - Cystoscopy with TURBT: Dr. Micaela Ireland cT2 high-grade muscle invasive urothelial carcinoma 04/19/2024 - CT A/P: Bladder contour regularity/filling defect along the dome of the bladder concerning for urothelial neoplasm. Recommend follow-up with urology. Possible bilateral nephrolithiasis. 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 Initial Visit, August 10, 2024: Transition of Care Bill Allen presents today to transition his care from main campus to be closer to home. He is joined by his , Kayli. Bill is a 73 year old male who was diagnosed with urothelial carcinoma following a cystoscopy with TURBT in 05/2024. MRI of the pelvis/bladder revealed probable invasion intothe superior perivesical fat. Second cystoscopy was completed on 07/21/[address] Hernández - invasion into the lamina propria was present. CT Chest & consultation with Dr. Real are scheduled for tomorrow. He is in agreement for concurrent chemotherapy (weekly Cisplatin x4) + radiation (20 fractions) as recommended by Dr. Stein. He has been on Coumadin for about 30 years due to a PMHx of bilateral lower extremity DVTs. Will closely monitor INR & platelet count throughout his course of treatment. He is a former cigarette smoker, quit in the 90s, and a current cannabis smoker. 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 Prior History from Dr. Stein's Progress Note on 08/04/2024: Plan: Follow up CT Chest on 08/16/2024 to complete staging. Provided scheduling number for him to reschedule this at [facility] [place]. Recommend concurrent chemoRT over 4 weeks with weekly cisplatin 40 mg/m2 IV on Days 1,8,15,22 priorto receiving RT (20 fx planned) on those days. Will need Rx for ondansetron 4mg PO q8h PRN for nausea/vomiting once he starts chemoRT. Following completion of treatment, he should proceed with surveillance with urine cytology, cystoscopy, CT C/A/P, and Signatera every 3 months. I have referred him to AMISH Taylor ([facility]) to establish care with medical oncology and radiation oncology so that he may receive his care close to home. They will contact him to schedule these appointments. REVIEW OF SYSTEMS Per HPI and otherwise negative by full review of organ systems. ECOG PERFORMANCE STATUS: 1 PHYSICAL EXAMINATION: Vitals: BP 165/84 Pulse 68 Temp (Src) 97.8 (Temporal) Resp 16 Ht 5' 7.992 (1.73m) Wt 218lb 7.6 oz (99.1kg) SpO2 98% BMI 33.23 kg/(m^2). Body surface area is 2.18 meters squared. Exam limited to gross visualization where appropriate. Gen.: This is an age-appropriate patient in no acute distress. Head: Appears atraumatic with no visible lesions. Eyes: Pupils equally round and reactive to light, extraocular muscles are intact. Neck: Supple. Respiratory: Appears to be respiring comfortably. Neurologic: Nonfocal to gross visualization. Alert and oriented 3. Psychiatric: No evidence of inappropriate anxiety or depression. Skin: Visible areas of skin without rash, lesions, wounds or petechiae. ALLERGIES: ALLERGIES No Known Allergies MEDICATIONS: multivitamin (VITAMIN DAILY ORAL) Take by mouth. Takes 1/2 tab cholecalciferol, vitamin D3, (VITAMIN D3 ORAL) Take by mouth. Docosahexanoic Acid-Eicosapent (FISH OIL) 120-180 mg capsule Take 2 g by mouth once daily. lisinopril (ZESTRIL, PRINIVIL) 10 mg tablet Take by mouth once daily. warfarin (COUMADIN) 5 mg tablet Take by mouth daily as directed. metoprolol tartrate, short acting, (LOPRESSOR) 50 mg tablet Take by mouth twice daily. terazosin (HYTRIN) 5 mg capsule Take by mouth daily at bedtime. simvastatin (ZOCOR) 40 mg tablet Take by mouth daily at bedtime. coenzyme Q10 (COQ-10) 100 mg cap capsule Take by mouth twice daily. Glucosamine Sulfate (GLUCOSAMINE) 500 mg tab Take 1 tablet by mouth. cephALEXin (KEFLEX) 500 mg capsule Take 1 capsule by mouth two times a day. LABORATORY VALUES: WBC (k/uL) Date Value 08/11/2024 9.86 RBC (m/uL) Date Value 08/11/2024 4.96 Hemoglobin (g/dL) Date Value 08/11/2024 14.5 Hematocrit (%) Date Value 08/11/2024 44.0 MCV (fL) Date Value 08/11/2024 88.7 MCH (pg) Date Value 08/11/2024 29.2 MCHC (g/dL) Date Value 08/11/2024 33.0 RDW-CV (%) Date Value 08/11/2024 13.2 Platelet Count (k/uL) Date Value 08/11/2024 217 MPV (fL) Date Value 08/11/2024 9.3 Glucose (mg/dL) Date Value 08/11/2024 156 (H) BUN (mg/dL) Date Value 08/11/2024 21 Creatinine (mg/dL) Date Value 08/11/2024 1.07 Sodium (mmol/L) Date Value 08/11/2024 146 (H) Potassium (mmol/L) Date Value 08/11/2024 4.4 Chloride (mmol/L) Date Value 08/11/2024 110 (H) CO2 (mmol/L) Date Value 08/11/2024 24 Protein, Total (g/dL) Date Value 08/11/2024 6.5 Albumin (g/dL) Date Value 08/11/2024 4.1 Calcium, Total (mg/dL) Date Value 08/11/2024 9.7 Alkaline Phosphatase (U/L) Date Value 08/11/2024 105 Bilirubin, Total (mg/dL) Date Value 08/11/2024 0.2 AST (U/L) Date Value 07/11/2024 25 ALT (U/L) Date Value 08/11/2024 20 DIAGNOSIS: (C67.9) 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) Plan: CONSULT TO HEMATOLOGY/ONCOLOGY, COMPLETE BLOOD COUNT AND DIFFERENTIAL, COMPREHENSIVE METABOLIC PANEL PAST MEDICAL HISTORY Diagnosis Date BPH (benign prostatic hypertrophy) Bradycardia CAD (coronary artery disease) DVT of lower extremity (deep venous thrombosis) (HCC) bilateral Erectile dysfunction Former smoker 07/11/2024 History of basal cell carcinoma (BCC) 07/11/2024 HLD (hyperlipidemia) HTN (hypertension) Medical marijuana use 07/11/2024 Palpitations Renal artery stenosis Spinal stenosis in cervical region Superior mesenteric artery stenosis (HCC) 04/19/2024 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) 06/02/2024 PAST SURGICAL HISTORY Procedure Laterality Date BLADDER BIOSPY FULGUR 06/02/2024 Social History Tobacco Use Smoking status: Former Current packs/day: 0.00 Average packs/day: 1.5 packs/day for 22.0 years (33.0 ttl pk-yrs) Types: Cigarettes Start date: 11/14/1969 Quit date: 11/15/1991 Years since quittin.7 Smokeless tobacco: Never Substance Use Topics Alcohol use: No Drug use: Yes Frequency: 7.0 times per week Comment: cannabis FAMILY HISTORY Problem Relation Age of Onset Prostate Cancer Father I spent a total of 40 minutes on the date of the service which included preparing to see the patient, cexy-yj-[id number] patient care, completing clinical documentation, obtaining and/or reviewing separately obtained history, performing a medically appropriate examination, counseling and educating the pat ient/family/caregiver, ordering medications, tests, or procedures, independently interpreting results (not separately reported), communicating results to the patient/family/caregiver, and care coordination (not separately reported). Arianne Stockton MD, CPE Hematology and Oncology Services Provided at: [place], [place] Scribe Attestation: This note was scribed by Glendy Mendez on August 10, 2024 under the direction and supervision of Dr. Arianne Stockton. I attest that all of the information documented is correct to the best of my knowledge. Provider Attestation: I, Arianne Stockton MD, attest that all information documented by the above scribe is correct, and was supervised by me and under my direction. CC: [place] [id number] [facility], [facility] [id number] Dayron Cervantes MD [address] [facility] [id number] Trevon Real MD documented in this encounterAvita Health System [facility]05-28-[address] [facility]05-22-[address] [facility]05-16-2025 History of Present illness Narrative* Dat France, - 07/29/2024 10:15 AM EDT Subjective Patient ID: Bill Allen is a 73 y.o. male who presents for Mohs Reconstruction (Geetha ear / possible surgery) HPI This patient presents for evaluation of Mohs defect of the left external ear. Underwent excision ofsquamous cell carcinoma in this area. Left with a soft tissue defect over the area of the left antihelical fold. Presents today for recheck of his progress of healing Review of Systems Patient has recovered from Mohs reconstruction in the area of the left mormon. Denies any pain or drainage from the area of his recent surgery. He is scheduled for treatment for bladder cancer in thenear future. The rest of his review of systems is unchanged Allergies as of 07/29/2024 (No Known Allergies) Past Medical History: Diagnosis Date Arthritis Basal cell carcinoma Former tobacco use 05/25/2024 Hypertension (CMS/HCC) Postoperative pain 05/25/2024 Squamous cell skin cancer 07/07/2024 Left anti-tragus, Mohs by Dr. Chung and repair by Dr. France Current Outpatient Medications: cholecalciferol (Vitamin D-3) 50 MCG (1999 UT) capsule, Take 2,000 Units by mouth Daily, Disp: , Rfl: coenzyme Q-10 100 MG capsule, Take 1 capsule by mouth 1 (one) time each day at the same time, Disp:, Rfl: Jzhknqdbblf-Ypielejzo-Dwr C-Mn (Glucosamine 1500 Complex) capsule, Take 1 capsule by mouth Daily, Disp: , Rfl: lisinopril 20 MG tablet, Take 1 tablet (20 mg) by mouth Daily, Disp: 90 tablet, Rfl: 3 metoprolol tartrate (Lopressor) 50 MG tablet, Take 1 tablet (50 mg) by mouth in the morning and 1 tablet (50 mg) before bedtime., Disp: 180 tablet, Rfl: 3 multivitamin (Theragran) tablet, Take 1 tablet by mouth Daily, Disp: , Rfl: omega-3 (FISH OIL) 300 MG capsule, Take 300 mg by mouth Daily, Disp: , Rfl: pneumococcal conjugate 20-valent (Prevnar 20) 0.5 ML vaccine, , Disp: , Rfl: simvastatin (Zocor) 20 MG tablet, Take 1 tablet (20 mg) by mouth at bedtime, Disp: 90 tablet, Rfl: 3 terazosin (Hytrin) 10 MG capsule, Take 1 capsule (10 mg) by mouth at bedtime, Disp: 90 capsule, Rfl: 3 warfarin (Coumadin) 5 MG tablet, Take 1 tablet daily, Disp: 90 tablet, Rfl: 3 cephalexin (Keflex) 500 MG capsule, Take 1 capsule by mouth, bid x 10 days. (Patient not taking: Reported on 07/29/2024), Disp: 20 capsule, Rfl: 0 Past Surgical History: Procedure Laterality Date WOUND DEBRIDEMENT 05/18/2024 Mohs repair left mormon Social History Socioeconomic History Marital status: Spouse name: Not on file Number of children: Not on file Years of education: Not on file Highest education level: Not on file Occupational History Not on file Tobacco Use Smoking status: Never Smokeless tobacco: Never Vaping Use Vaping status: Every Day Substances: THC Substance and Sexual Activity Alcohol use: Never [...] overview: Normal, age-appropriate, no evidence of distress Head: Normocephalic, the area of recent repair in the left temporal region has healed up very nicely. Eyes: Pupils are equally round and reactive to light and accommodation, extraocular muscles are intact Ears: External ear architecture shows a 1 x 2.5 cm soft tissue defect in the area of the anti helical fold on the left. There is partial healing with no exposure of cartilage at this time No evidenceof infection., ear canals are patent, tympanic membranes are intact. Pathology was positive for squamous carcinoma. Nose: External nose unremarkable, nares patent, septum [...] orders for this visit: 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 Comments: The area of Mohs excision appears to be healing relatively well. We will see him back in 1 month with continued conservative care There is evidence of significant deformity of the external ear when he returns, we will consider surgical intervention at that time. documented in this encounterGolden Valley Memorial [id number] Telephone encounter Note* Telephone Encounter - Yomaira Cerda Research Coordinator - 07/26/2024 12:55 PM EDTSummary: Research discussion - PRESERVE Trial Called and spoke with patient regarding scheduling and to discuss further interest in PRESERVE trial, first presented to patient by Dr. Hernández. The expectations of coming to [facility] were discussed with the patient, as the PRESERVE trial isonly available at [facility]. Patient expressed frustration with this, stating he did not want todrive 90 miles. Patient is still interested in trial an consent will be sent to patient for review. Patient voiced understanding. Yomaira Cerda Research Coordinator [facility]05-13-2025 Miscellaneous Notes* Telephone Encounter - Yomaira Cerda Research Coordinator - 07/26/2024 12:55 PM EDTSummary: Research discussion - PRESERVE Trial Called and spoke with patient regarding scheduling and to discuss further interest in PRESERVE trial, first presented to patient by Dr. Hernández. The expectations of coming to [facility] were discussed with the patient, as the PRESERVE trial isonly available at [facility]. Patient expressed frustration with this, stating he did not want todrive 90 miles. Patient is still interested in trial an consent will be sent to patient for review. Patient voiced understanding. Yomaira Cerda Research Coordinator documented in this encounterAvita Health System Galion Hospital05-05-2025 NoteAlyssa Ville [address]-28-2025 History of Present illness Narrative* Michela Bowling RN - 07/11/2024 5:50 PM EDT Radiology Service Progress Note DATE OF SERVICE: July 11, 2024 TIME: 6:13 PM PATIENT WEIGHT: 218 LBS PATIENT IDENTITY VERIFICATION COMPLETED USING TWO (2) STANDARD IDENTIFIERS: Name and Date of confirmed by patient verbally and Name and Date of confirmed by identification band. FALL SCREENING: Has the patient had 2 falls in the last year or 1 fall with injury or currently using an Ambulatory Assistive Device (Walker, Cane, Wheelchair, Crutches, etc.)? No PATIENT GENDER DATA: Assigned male at ALLERGIES: Reviewed and unchanged CONTRAST ALLERGY: No EXAM: MRI - CONTRAST TYPE: GROUP II IV SITE: Ambulatory: A peripheral IV was started in the Right antecubital site with a Angio cath: 22 gauge. and A Saline lock was inserted per protocol IV SITE APPEARANCE: Clean,Dry and Intact SIGNATURE: Michela Bowling RN PATIENT NAME: Bill Allen DATE: July 11, 2024 TIME: 6:13 PM * Vamsi Goldberg RT(R) - 07/11/2024 5:50 PM EDT Radiology Service Progress Note PATIENT NAME: Bill Allen DATE OF SERVICE: July 11, 2024 TIME: 7:13 PM PATIENT IDENTITY VERIFICATION COMPLETED USING TWO (2) IDENTIFIERS: Name and Date of confirmedby patient verbally and Name and Date of confirmed by identification band. FALL SCREENING: Has the patient had 2 falls in the last year or 1 fall with injury or currently using an Ambulatory Assistive Device (Walker, Cane, Wheelchair, Crutches, etc.)? No PATIENT GENDER DATA: Assigned male at PATIENT RELEVANT IMPLANT DATA REVIEWED: Yes PATIENT PRESENTS WITH AN IMPLANTABLE OR ATTACHED CHALKER SOLES: No RADIOLOGY DEPARTMENT: MR; Exam(s) Completed: Body: Bladder. Lavender Administered: No PERIPHERAL IV DATA: Site assessment: Clean,Dry and Intact, Site disposition Discontinued SIGNED BY: RT Irma(R) July 11, 2024 7:13 PM documented in this encounterAvita Health System Galion Hospital04-28-[address] [facility]04-28-[address] [facility]04-28-2025 Instructions* Patient Instructions* Osorio Brown APRN.RAILROAD TRACK INSPECTOR - 07/11/2024 3:44 PM EDT Images from the original note were not included. [facility] PATIENT PREOPERATIVE INSTRUCTIONS Martah Peters MD has scheduled you for your procedure at this surgery center: [facility] [place] Scheduling Office: [phone] --[address] [place] [address]. Please read below carefully for your personalized instructions. Dietary Restrictions: - No solid food after midnight. - You may have 12 ounces of clear liquids (water, clear juices such as apple juice or gatorade, carbonated beverages, clear tea, black coffee, jello) until 2 hours before scheduled arrival at facility. Medications: Unless instructed differently below, stay on all of your medications until your surgery. If you start any new medications after today's visit, please contact your surgeon. Pre-Surgery Med Instructions Medication Instructions cephALEXin (KEFLEX) 500 mg capsule If you normally take this medication in the morning, take the morning of surgery. multivitamin (VITAMIN DAILY ORAL) Do not take the day of surgery Docosahexanoic Acid-Eicosapent (FISH OIL) 120-180 mg capsule Do not take the day of surgery lisinopril (ZESTRIL, PRINIVIL) 10 mg tablet If you normally take this medication in the morning, take the morning of surgery. warfarin (COUMADIN) 5 mg tablet Hold the number days before surgery. Last dose to be taken as instructed by your prescribing physician . metoprolol tartrate, short acting, (LOPRESSOR) 50 mg tablet If you normally take this medication inthe morning, take the morning of surgery. terazosin (HYTRIN) 5 mg capsule Do not take the day of surgery simvastatin (ZOCOR) 40 mg tablet If you normally take this medication in the morning, take the morning of surgery. coenzyme Q10 (COQ-10) 100 mg cap capsule Do not take the day of surgery Glucosamine Sulfate (GLUCOSAMINE) 500 mg tab Do not take the day of surgery If you take any medications for erectile dysfunction-Cialis (Tadalafil), Levitra, Staxyn (Vardenafil) Viagra (Sildenenafil please do not take these for 48 hours before surgery. If you start any new medications after today's visit, please contact the surgeon's office. If you are currently using a [id number] injectable or oral medication for diabetes or weight loss such as Dulaglutide (Trulicity), Exenatide (Byetta, Bydureon), Liraglutide (Victoza, Saxenda), Semaglutide (Ozempic, Wegovy, Rybelsus), or Tirzepatide (Mounjaro), the medicine should be stopped at least 7 days before surgery. These medicines can cause food to remain in your stomach for a very longtime and increase the risks from surgery and anesthesia. Not stopping the medication for a long enough time may result in your surgery being rescheduled. Blood Thinning Medications: - Stop NSAIDS (Ibuprofen, Advil, Aleve, Motrin, Celebrex, Mobic, etc.) 7 days before surgery, as directed by your surgeon. - Stop Aspirin 7 days before surgery, as directed by your surgeon. - Stop ALL herbal and dietary supplements 14 days before surgery. - You may take Tylenol (Acetaminophen) or any of your pain medications that do not contain aspirin or NSAIDS as needed. Important Reminders: - Candy, mints, and tobacco products are NOT permitted the morning of surgery. - Hearing aids, dentures and glasses may be worn the morning of surgery. - NO jewelry, body piercings, makeup, hairpins or contacts are to be worn the day of surgery. If you develop symptoms such as a fever, cold, or flu, or have other changes to your health within TWO DAYS of scheduled surgery or the morning of surgery, please contact the surgery center above. Personal Belongings: -Please have photo ID and insurance cards. -If you do not have a copy of advance directives on file with us, please bring a copy with you on the day of surgery. - Leave ALL valuables and money at home or with family members. - Please bring high-quality footwear, such as sneakers, to the hospital for ambulating post-surgery. For Outpatient Procedures: - YOU MUST HAVE A RESPONSIBLE TRACTOR EXPERT TAKE YOU HOME. A OCEAN EXPORT COORDINATOR OR PROPERTY FIELD ADJUSTER CANNOT BE MADE A RESPONSIBLE TRACTOR EXPERT. - We recommend that a responsible person stays with you overnight to take care of you. - You cannot stay in a hotel alone after outpatient surgery. You will not be permitted to have yoursurgery, if you do not have someone to take care of you. Arrival Time for Surgery: - To obtain your arrival time for surgery, call your physician's office the day before your surgery. - If you have received different instructions about finding out your arrival time from your surgeon, please follow those instructions. - If your surgery is scheduled for Thursday, call the Thursday before. Your surgeon s knit goods press hand will tell you what time to call the office. - If you have not reached the departmental knit goods press hand by 5 P.M., call [phone] after 5 P.M. the day before your surgery. Please be aware that emergency situations arise, which may delay or change your surgical time. If this happens, we will notify you as soon as possible and regret any inconvenience. If you already have an Advance Directive, please fax a copy to [phone] or email to for it to be added to your chart. If you do not have an Advance Directive, you can find the appropriate form and more information at [email or web address]. We recommend that youcomplete the Advance Directive form found on the website and bring it with you the day of your surgery. It can be witnessed and scanned into your chart that day. Osorio Brown APRN.CNP [facility] Evaluation + Plan note* Assessment & Plan Note - Osorio Brown APRN.CNP - 07/11/2024 3:33 PM EDTAssociated Problem(s): History of basal cell carcinoma (BCC) Located left mormon Treated with Mohs Followed by Derm [facility]04[facility] Miscellaneous Notes* Assessment & Plan Note - Osorio Ramirez APRN.CNP - 07/11/2024 3:33 PM EDTAssociated Problem(s): History of basal cell carcinoma (BCC) Located left mormon Treated with Mohs Followed by Derm * Assessment & Plan Note - Osorio Brown APRN.CNP - 07/11/2024 3:32 PM EDTAssociated Problem(s): History of SCC (squamous cell carcinoma) of skin Located left ear Treated with Mohs Followed by Derm * Assessment & Plan Note - Osorio Brown APRN.CNP - 07/11/2024 3:29 PM EDTAssociated Problem(s): Gastroesophageal reflux disease Managed with diet and TUMS States stables and controlled * Assessment & Plan Note - Osorio Brown APRN.CNP - 07/11/2024 3:28 PM EDTAssociated Problem(s): Hypercholesterolemia Managed with Simvastatin * Assessment & Plan Note - Osorio Brown APRN.CNP - 07/11/2024 3:28 PM EDTAssociated Problem(s): Benign hypertension Managed with Lisinopril and Metoprolol BP this visit 150/61 Denies SOB, dizziness, lightheadedness, palpitations, syncope and chest pain * Assessment & Plan Note - Osorio Brown APRN.CNP - 07/11/2024 3:26 PM EDTAssociated Problem(s): Pulmonary fibrosis (HCC) Followed by PCP Previous seen by Pulm, states no longer needed due to no changes Denies any SOB or respiratory symptoms Pulse Ox RA 99% * Assessment & Plan Note - Osorio Brown APRN.CNP - 07/11/2024 3:24 PM EDTAssociated Problem(s): Personal history of DVT (deep vein thrombosis) History around Bilateral LE Currently on Coumadin Previously followed by vascular, currently followed by PCP Noted Able to proceed with upcoming surgery at low risk for complications. Able to hold coumadin 5 days prior to surgery. Denies any recurrence or symptoms * Assessment & Plan Note - Osorio Brown APRN.CNP - 07/11/2024 3:22 PM EDTAssociated Problem(s): Former smoker Reports Former smoker X 22 years 1.5 PPD. Quit 1991 * Assessment & Plan Note - Osorio Brown APRN.CNP - 07/11/2024 3:18 PM EDTAssociated Problem(s): Medical marijuana use Reports daily use of inhalation, reports last use last night Instructed no use 14 days before surgery * Assessment & Plan Note - Osorio Brown APRN.CNP - 07/11/2024 2:27 PM EDTAssociated Problem(s): Prediabetes Managed with diet A1C ordered [facility] Evaluation + Plan note* Assessment & Plan Note - Osorio Brown APRN.CNP - 07/11/2024 3:32 PM EDTAssociated Problem(s): History of SCC (squamous cell carcinoma) of skin Located left ear Treated with Mohs Follow[facility] by Derm [facility]04[facility] Evaluation + Plan note* Assessment & Plan Note - Osorio Brown APRN.CNP - 07/11/2024 3:29 PM EDTAssociated Problem(s): Gastroesophageal reflux disease Managed with diet and TUMS States stables and controlled [facility]04-28-[facility] Evaluation + Plan note* Assessment & Plan Note - Osorio Brown APRN.CNP - 07/11/2024 3:28 PM EDTAssociated Problem(s): Hypercholesterolemia Managed with Simvastatin [facility]04-28-2025 Evaluation + Plan note* Assessment & Plan Note - Osorio Brown APRN.CNP - 07/11/2024 3:28 PM EDTAssociated Problem(s): Benign hypertension Managed with Lisinopril and Metoprolol BP this visit 150/61 Denies SOB, dizziness, lightheadedness, palpitations, syncope and chest pain [facility]04-28-[facility] Evaluation + Plan note* Assessment & Plan Note - Osorio Brown APRN.CNP - 07/11/2024 3:26 PM EDTAssociated Problem(s): Pulmonary fibrosis (HCC) Followed by PCP Previous seen by Pulm, states no longer needed due to no changes Denies any SOB or respiratory symptoms Pulse Ox RA 99% [facility]04-28-[facility] Evaluation + Plan note* Assessment & Plan Note - Osorio Brown APRN.CNP - 07/11/2024 3:24 PM EDTAssociated Problem(s): Personal history of DVT (deep vein thrombosis) History around Bilateral LE Currently on Coumadin Previously followed by vascular, currently followed by PCP Noted Able to proceed with upcoming surgery at low risk for complications. Able to hold coumadin 5 days prior to surgery. Denies any recurrence or symptoms [facility]04-[facility] Evaluation + Plan note* Assessment & Plan Note - Osorio Brown APRN.CNP - 07/11/2024 3:22 PM EDTAssociated Problem(s): Former smoker Reports Former smoker X 22 years 1.5 PPD. Quit 1991 [facility]04-28-[facility] Evaluation + Plan note* Assessment & Plan Note - Osorio Brown APRN.CNP - 07/11/2024 3:18 PM EDTAssociated Problem(s): Medical marijuana use Reports daily use of inhalation, reports last use last night Instructed no use 14 days before surgery [facility]04-[facility] Telephone encounter Note* Telephone Encounter - Lanette Osborn APRN.CNP - 07/11/2024 3:02 PM EDT I spoke with Dr Cervantes over the confirm and received verbal confirmation Bill Allen can hold his Coumadin 5 days prior to his scheduled procedure 07/18/2024. Lanette Osborn APRN.CNP [facility] Work Phone: [phone] Miscellaneous Notes* Telephone Encounter - Lanette Osborn APRN.CNP - 07/11/2024 3:02 PM EDT I spoke with Dr Cervantes over the confirm and received verbal confirmation Bill Allen can hold his Coumadin 5 days prior to his scheduled procedure 07/18/2024. Lanette Osborn APRN.CNP documented in this [facility] Evaluation + Plan note* Assessment & Plan Note - Osorio Brown APRN.CNP - 07/11/2024 2:27 PM EDTAssociated Problem(s): Prediabetes Managed with diet A1C ordered [facility]04[facility] History and physical note* Osorio Brown APRN.CNP - 07/11/2024 2:00 PM EDT Images from the original note were not included. [facility] HISTORY AND PHYSICAL EXAMINATION SERVICE DATE: 07/11/2024 SERVICE TIME: 3:12 PM PRIMARY CARE PHYSICIAN: Dayron Cervantes MD Assessment Patient has the following medical conditions which may affect jayne-operative course: Prediabetes Managed with diet A1C ordered Medical marijuana use Reports daily use of inhalation, reports last use last night Instructed no use 14 days before surgery Former smoker Reports Former smoker X 22 years 1.5 PPD. Quit 1991 Personal history of DVT (deep vein thrombosis) History around Bilateral LE Currently on Coumadin Previously followed by vascular, currently followed by PCP Noted Able to proceed with upcoming surgery at low risk for complications. Able to hold coumadin 5 days prior to surgery. Denies any recurrence or symptoms Pulmonary fibrosis (HCC) Followed by PCP Previous seen by Pulm, states no longer needed due to no changes Denies any SOB or respiratory symptoms Pulse Ox RA 99% Benign hypertension Managed with Lisinopril and Metoprolol BP this visit 150/61 Denies SOB, dizziness, lightheadedness, palpitations, syncope and chest pain Hypercholesterolemia Managed with Simvastatin Gastroesophageal reflux disease Managed with diet and TUMS States stables and controlled History of SCC (squamous cell carcinoma) of skin Located left ear Treated with Mohs Followed by Derm History of basal cell carcinoma (BCC) Located left mormon Treated with Mohs Followed by Derm ANESTHESIA FINDINGS: Intubation History: No abnormal airway history Significant Anesthesia Considerations: none Airway History: No abnormal airway history Anderson Activity Status Index: METS: Walk indoors, such as around the house (1.75 METs) Do light work around the house, such as dusting or washing dishes (2.70 METs) Take care of self; that is eating, dressing, bathing, using the toilet (2.75 METs) Do moderate work around the house, such as vacuuming, sweeping floors, or carrying in groceries (3.50 METs) Climb a flight of stairs or walk up a hill (5.50 METs) Do heavy work around the house, such as scrubbing floors, lifting or moving heavy furniture (8.00 METs) DASI Score: 24.2 (Limited ADLs due to back and hip pain, denies related to SOB or chest pain ) Patient denies any chest pain or undue shortness of breath with the above physical activity. Clinical Frailty Scale: 3. Well, with treated comorbid disease STOP-Bang Score: Patient over 50 years old Has a large neck Male patient Denies snoring loudly Denies feeling tired, fatigued, or sleepy during the daytime Has not been observed to stop breathing or choking/gasping during sleep Denies having high blood pressure BMI less than or equal to 35 kg/m^2 STOP-Bang Score: 3 [id number] Score: Age: 65-74 Sex: male CHF history: No Hypertension history: Yes Vascular disease history: No Diabetes history: No [id number] Score: ARISCAT Score: Age: 51-80 Preoperative SpO2: >=96% Respiratory infection in the last month: No Preoperative anemia: Yes Duration of surgery: <2 hrs Emergency procedure: No ARISCAT Score: I - PHYSICAL EVALUATION AIRWAY Patient intubated: No. Tracheostomy tube not present Mallampati: III. TM distance: >3 FB. Neck ROM: full ROM without neurological symptoms. Mouth opening: adequate. Short neck: no. Thick neck: no Coyle present: yes Lip Bite Test: I DENTAL Dental findings: missing tooth/teeth and broken tooth. Dentures, upper: complete. Additional comments: Implants and several missing upper Several missing and broken lower . II - ANESTHESIA PLAN Anesthetic Plan: other Anesthetic plan additional comments: *PACC/TCI - anesthesia choice. Beta Samir Monitoring Plan Post Procedure Analgesic Plan Prepared for Surgery: optimally prepared for surgery, pending [see comment]. Type and Screen, CMP, CBC, CONABO (ordered by surgery), A1C and DOS exam CONSULTS: Patient does not require consults for optimization at this time Planned Anesthetic: other anesthesia choice The Following Tests/Procedures Have Been Initiated: Orders Placed This Encounter Hemoglobin A1C Standing Status: Future Expected Date: 07/13/2024 Expiration Date: 10/12/2024 multivitamin (VITAMIN DAILY ORAL) Sig: Take by mouth. Takes 1/2 tab cholecalciferol, vitamin D3, (VITAMIN D3 ORAL) Sig: Take by mouth. REASON FOR VISIT: Bill Allen is a 73 year old male who is scheduled for Procedure(s): CYSTOSCOPY, BIOPSY BLADDER (N/A) at the request of Babak Abarca MD for consultation. My finalrecommendation will be communicated back to the requesting physician by way of shared medical record or letter. Subjective The patient has the following: COVID-19 Immunization Status Current Care Gaps Covid-19 Vaccine () Overdue since 06/29/2024 12/30/2023 Imm Admin: COVID-19 vaccine, age 12+ yr ([facility]) 12/25/2022 Outside Immunization: COVID-19, mRNA, LNP-S, PF, patricia-sucrose, 30 mcg/0.3 mL 12/02/2021 Outside Immunization: COVID-19, mRNA, LNP-S, bivalent, PF, 50 mcg/0.5 mL or 25mcg/0.25 mL dose Only the first 3 history entries have been loaded, but more history exists. CHIEF COMPLAINT: Pre-Op Visit HPI: 73 year old male who has malignant neoplasm of urinary bladder seen for PACC. He endorses having a history of bladder cancer. 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 Scheduled for CYSTOSCOPY, BIOPSY BLADDER on 07/18/24. Denies any fever, chills, nausea, vomiting, SOB, dizziness, lightheadedness, palpitations, syncope, chest pain or abdominal pain. He has elected to proceed with the surgical procedure. REVIEW OF SYSTEMS: General: No weight loss, malaise or fevers. Negative for: malaise and fever. Neurological: No history of TIA's, stroke, ELECTRONICS RECYCLER tumor, impaired sensorium, hemiplegia, paraplegia orquadraplegia. No neurological symptoms or problems. Negative for: multiple sclerosis, seizures, TIA and strokes. Respiratory: Positive for: tobacco use (Former smoker X 22 years 1.5 PPD. Quit 1991). Negative for: asthma, bronchitis, COPD, current cough, dyspnea, home oxygen, orthopnea, pneumonia within 6 weeks, URI < 2 weeks and obstructive sleep apnea. Cardiovascular: Positive for: anticoagulation therapy (Coumadin), DVT/PE (+ H/O B/L LE), hyperlipidemia and hypertension Negative for: abdominal aortic aneurysm, AICD/PPM, angina, arrhythmia, atrial fibrillation, CAD, chest pain, CHF, congenital heart defect, recent UT and murmur/valvular heart disease. GI: Positive for: GERD Negative for: abdominal pain, dysphagia, diverticulitis, GI bleed <30 days, heartburn, hepatitis, irritable bowel syndrome, inflammatory bowel disease, liver disease, nausea, pancreatitis and vomiting. : Positive for: nocturia >1 time per night and urgency. Negative for: dysuria, flank pain, frequent urination, hematuria and urinary incontinence. Endocrine: No history of diabetes. Has not taken steroids within the past 30 days. No history of endocrinological symptoms or problems. Negative for: diabetes mellitus, hyperthyroidism, hypothyroidism and hyperparathyroidism. Hematology: No history of bleeding or clotting disorder. Patient is not taking anti-coagulation or platelet medications. No history of hematological symptoms or problems. Negative for: anemia. Oncology: See HPI. + squamous cell carcinoma of skin Psych: Positive for: Marijuana Use. Negative for: anxiety, bipolar disorder, depression and drug dependency. Product type: Flower. Route of administration: Inhalation. Frequency: Daily. Duration used: 1 years or more. Musculoskeletal: + cervical stenosis + spinal stenosis Positive for: back pain and joint pain. Negative for: swelling and rheumatoid arthritis. Skin: Negative for lesions, rash and itching. Negative for: lesions, itching and rash. PAST MEDICAL HISTORY Diagnosis Date BPH (benign prostatic hypertrophy) Bradycardia DVT (deep venous thrombosis) (HCC) Former smoker 07/11/2024 History of basal cell carcinoma (BCC) 07/11/2024 Hx of blood clots Medical marijuana use 07/11/2024 Palpitations Renal artery stenosis PAST SURGICAL HISTORY Procedure Laterality Date BLADDER BIOSPY FULGUR History reviewed. No pertinent family history. Social History Tobacco Use Smoking status: Former Current packs/day: 0.00 Average packs/day: 1.5 packs/day for 22.0 years (33.0 ttl pk-yrs) Types: Cigarettes Start date: 11/14/1969 Quit date: 11/15/1991 Years since quittin.6 Smokeless tobacco: Never Substance Use Topics Alcohol use: No Drug use: Yes Frequency: 7.0 times per week Comment: cannabis Prior to Admission medications as of 07/11/24 1541 Medication Sig Last Dose Taking cephALEXin (KEFLEX) 500 mg capsule Take 1 capsule by mouth two times a day. Yes multivitamin (VITAMIN DAILY ORAL) Take by mouth. Takes 1/2 tab Yes Docosahexanoic Acid-Eicosapent (FISH OIL) 120-180 mg capsule Take 2 g by mouth once daily. Yes lisinopril (ZESTRIL, PRINIVIL) 10 mg tablet Take by mouth once daily. Yes warfarin (COUMADIN) 5 mg tablet Take by mouth daily as directed. Yes metoprolol tartrate, short acting, (LOPRESSOR) 50 mg tablet Take by mouth twice daily. Yes terazosin (HYTRIN) 5 mg capsule Take by mouth daily at bedtime. Yes simvastatin (ZOCOR) 40 mg tablet Take by mouth daily at bedtime. Yes coenzyme Q10 (COQ-10) 100 mg cap capsule Take by mouth twice daily. Yes Glucosamine Sulfate (GLUCOSAMINE) 500 mg tab Take 1 tablet by mouth. Yes cholecalciferol, vitamin D3, (VITAMIN D3 ORAL) Take by mouth. hydroCHLOROthiazide (HYDRODIURIL, ESIDRIX) 25 mg tablet Take by mouth once daily. Patient not taking: Reported on 07/06/2024 No medication comments found. ALLERGIES No Known Allergies Objective PHYSICAL EXAM: General: alert and oriented and healthy appearance. Skin: normal color, no rash or lesions. HEENT: pupils equal round and pupils reactive to light. Cardiovascular: regular rate and rhythm, normal S1 and S2, no rub, murmurs, or gallop. Respiratory: normal breath sounds, no wheezes or crackles. No chest wall deformity or tenderness. Abdomen: bowel sounds present and soft. Extremities: no deformity, no edema or tenderness, no joint swelling or clubbing. Neurological: normal cognition and motor skills. Gait normal. No weakness or sensory deficit. PAIN ASSESSMENT: VITALS: BP 150/61 Pulse 64 Temp (Src) 98 (Temporal) Ht 5' 8 (1.73m) Wt 217 lb 9.5 oz (98.7kg) SpO2 99% BMI 33.09 kg/(m^2). Diagnostic tests reviewed for today's visit: Lab Value Units Date High Low HB 14.7 g/dL 07/11/2024 17.0 13.0 HCT 45.1 % 07/11/2024 51.0 39.0 WBC 9.97 k/uL 07/11/2024 11.00 3.70 PLT 210 k/uL 07/11/2024 400 150 NA 141 mmol/L 07/11/2024 144 136 K 4.5 mmol/L 07/11/2024 5.1 3.7 GLUC 89 mg/dL 07/11/2024 99 74 BUN 16 mg/dL 07/11/2024 24 9 CREAT 1.00 mg/dL 07/11/2024 1.22 0.73 PTSEC 34.5 sec 07/11/2024 13.0 9.7 INR 3.5 no uni* 07/11/2024 1.3 0.9 APTT 38.2 sec 07/11/2024 32.4 23.0 ALT 23 U/L 07/11/2024 54 10 AST 25 U/L 07/11/2024 40 14 TBILI 0.3 mg/dL 07/11/2024 1.3 0.2 TSH No results within date range. Lab Value Units Date High Low HCGQT No results within date range. UHCG No results within date range. HCG, BODY* No results within date range. Lab Value Units Date High Low ABORHD No results within date range. ABSCREEN No results within date range. No results found for: HBA1C No results found for this or any previous visit (from the past 8760 hours). No results found for this or any previous visit (from the past 20022 hours). Instructions Given to Patient: Instructions located in the after visit summary. Patient given verbal and written preop instructions and voices comprehension and compliance. Reports daily use of inhalation, reports last use last night. Instructed no further use, hold for surgery. SIGNATURE: Osorio Brown APRN.CNP PATIENT NAME: Bill Allen DATE: July 11, 2024 TIME: 3:44 PM PAGER/CONTACT #: Addendum; Reviewed Type and Screen, CMP, CBC, CONABO, accepted. Awaiting A1C. [facility]04-28-[facility] History and physical note* Osorio Brown APRN.CNP - 07/11/2024 2:00 PM EDT Images from the original note were not included. [facility] HISTORY AND PHYSICAL EXAMINATION SERVICE DATE: 07/11/2024 SERVICE TIME: 3:12 PM PRIMARY CARE PHYSICIAN: Dayron Cervantes MD Assessment Patient has the following medical conditions which may affect jayne-operative course: Prediabetes Managed with diet A1C ordered Medical marijuana use Reports daily use of inhalation, reports last use last night Instructed no use 14 days before surgery Former smoker Reports Former smoker X 22 years 1.5 PPD. Quit 1991 Personal history of DVT (deep vein thrombosis) History around Bilateral LE Currently on Coumadin Previously followed by vascular, currently followed by PCP Noted Able to proceed with upcoming surgery at low risk for complications. Able to hold coumadin 5 days prior to surgery. Denies any recurrence or symptoms Pulmonary fibrosis (HCC) Followed by PCP Previous seen by Pulm, states no longer needed due to no changes Denies any SOB or respiratory symptoms Pulse Ox RA 99% Benign hypertension Managed with Lisinopril and Metoprolol BP this visit 150/61 Denies SOB, dizziness, lightheadedness, palpitations, syncope and chest pain Hypercholesterolemia Managed with Simvastatin Gastroesophageal reflux disease Managed with diet and TUMS States stables and controlled History of SCC (squamous cell carcinoma) of skin Located left ear Treated with Mohs Followed by Derm History of basal cell carcinoma (BCC) Located left mormon Treated with Mohs Followed by Derm ANESTHESIA FINDINGS: Intubation History: No abnormal airway history Significant Anesthesia Considerations: none Airway History: No abnormal airway history Anderson Activity Status Index: METS: Walk indoors, such as around the house (1.75 METs) Do light work around the house, such as dusting or washing dishes (2.70 METs) Take care of self; that is eating, dressing, bathing, using the toilet (2.75 METs) Do moderate work around the house, such as vacuuming, sweeping floors, or carrying in groceries (3.50 METs) Climb a flight of stairs or walk up a hill (5.50 METs) Do heavy work around the house, such as scrubbing floors, lifting or moving heavy furniture (8.00 METs) DASI Score: 24.2 (Limited ADLs due to back and hip pain, denies related to SOB or chest pain ) Patient denies any chest pain or undue shortness of breath with the above physical activity. Clinical Frailty Scale: 3. Well, with treated comorbid disease STOP-Bang Score: Patient over 50 years old Has a large neck Male patient Denies snoring loudly Denies feeling tired, fatigued, or sleepy during the daytime Has not been observed to stop breathing or choking/gasping during sleep Denies having high blood pressure BMI less than or equal to 35 kg/m^2 STOP-Bang Score: 3 [id number] Score: Age: 65-74 Sex: male CHF history: No Hypertension history: Yes Vascular disease history: No Diabetes history: No [id number] Score: ARISCAT Score: Age: 51-80 Preoperative SpO2: >=96% Respiratory infection in the last month: No Preoperative anemia: Yes Duration of surgery: <2 hrs Emergency procedure: No ARISCAT Score: I - PHYSICAL EVALUATION AIRWAY Patient intubated: No. Tracheostomy tube not present Mallampati: III. TM distance: >3 FB. Neck ROM: full ROM without neurological symptoms. Mouth opening: adequate. Short neck: no. Thick neck: no Coyle present: yes Lip Bite Test: I DENTAL Dental findings: missing tooth/teeth and broken tooth. Dentures, upper: complete. Additional comments: Implants and several missing upper Several missing and broken lower . II - ANESTHESIA PLAN Anesthetic Plan: other Anesthetic plan additional comments: *PACC/TCI - anesthesia choice. Beta Samir Monitoring Plan Post Procedure Analgesic Plan Prepared for Surgery: optimally prepared for surgery, pending [see comment]. Type and Screen, CMP, CBC, CONABO (ordered by surgery), A1C and DOS exam CONSULTS: Patient does not require consults for optimization at this time Planned Anesthetic: other anesthesia choice The Following Tests/Procedures Have Been Initiated: Orders Placed This Encounter Hemoglobin A1C Standing Status: Future Expected Date: 07/13/2024 Expiration Date: 10/12/2024 multivitamin (VITAMIN DAILY ORAL) Sig: Take by mouth. Takes 1/2 tab cholecalciferol, vitamin D3, (VITAMIN D3 ORAL) Sig: Take by mouth. REASON FOR VISIT: Bill Allen is a 73 year old male who is scheduled for Procedure(s): CYSTOSCOPY, BIOPSY BLADDER (N/A) at the request of Babak Abarca MD for consultation. My finalrecommendation will be communicated back to the requesting physician by way of shared medical record or letter. Subjective The patient has the following: COVID-19 Immunization Status Current Care Gaps Covid-19 Vaccine () Overdue since 06/29/2024 12/30/2023 Imm Admin: COVID-19 vaccine, age 12+ yr ([facility] 12/25/2022 Outside Immunization: COVID-19, mRNA, LNP-S, PF, patricia-sucrose, 30 mcg/0.3 mL 12/02/2021 Outside Immunization: COVID-19, mRNA, LNP-S, bivalent, PF, 50 mcg/0.5 mL or 25mcg/0.25 mL dose Only the first 3 history entries have been loaded, but more history exists. CHIEF COMPLAINT: Pre-Op Visit HPI: 73 year old male who has malignant neoplasm of urinary bladder seen for PACC. He endorses having a history of bladder cancer. 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 Scheduled for CYSTOSCOPY, BIOPSY BLADDER on 07/18/24. Denies any fever, chills, nausea, vomiting, SOB, dizziness, lightheadedness, palpitations, syncope, chest pain or abdominal pain. He has elected to proceed with the surgical procedure. REVIEW OF SYSTEMS: General: No weight loss, malaise or fevers. Negative for: malaise and fever. Neurological: No history of TIA's, stroke, ELECTRONICS RECYCLER tumor, impaired sensorium, hemiplegia, paraplegia orquadraplegia. No neurological symptoms or problems. Negative for: multiple sclerosis, seizures, TIA and strokes. Respiratory: Positive for: tobacco use (Former smoker X 22 years 1.5 PPD. Quit 1991). Negative for: asthma, bronchitis, COPD, current cough, dyspnea, home oxygen, orthopnea, pneumonia within 6 weeks, URI < 2 weeks and obstructive sleep apnea. Cardiovascular: Positive for: anticoagulation therapy (Coumadin), DVT/PE (+ H/O B/L LE), hyperlipidemia and hypertension Negative for: abdominal aortic aneurysm, AICD/PPM, angina, arrhythmia, atrial fibrillation, CAD, chest pain, CHF, congenital heart defect, recent UT and murmur/valvular heart disease. GI: Positive for: GERD Negative for: abdominal pain, dysphagia, diverticulitis, GI bleed <30 days, heartburn, hepatitis, irritable bowel syndrome, inflammatory bowel disease, liver disease, nausea, pancreatitis and vomiting. : Positive for: nocturia >1 time per night and urgency. Negative for: dysuria, flank pain, frequent urination, hematuria and urinary incontinence. Endocrine: No history of diabetes. Has not taken steroids within the past 30 days. No history of endocrinological symptoms or problems. Negative for: diabetes mellitus, hyperthyroidism, hypothyroidism and hyperparathyroidism. Hematology: No history of bleeding or clotting disorder. Patient is not taking anti-coagulation or platelet medications. No history of hematological symptoms or problems. Negative for: anemia. Oncology: See HPI. + squamous cell carcinoma of skin Psych: Positive for: Marijuana Use. Negative for: anxiety, bipolar disorder, depression and drug dependency. Product type: Flower. Route of administration: Inhalation. Frequency: Daily. Duration used: 1 years or more. Musculoskeletal: + cervical stenosis + spinal stenosis Positive for: back pain and joint pain. Negative for: swelling and rheumatoid arthritis. Skin: Negative for lesions, rash and itching. Negative for: lesions, itching and rash. PAST MEDICAL HISTORY Diagnosis Date BPH (benign prostatic hypertrophy) Bradycardia DVT (deep venous thrombosis) (HCC) Former smoker 07/11/2024 History of basal cell carcinoma (BCC) 07/11/2024 Hx of blood clots Medical marijuana use 07/11/2024 Palpitations Renal artery stenosis PAST SURGICAL HISTORY Procedure Laterality Date BLADDER BIOSPY FULGUR History reviewed. No pertinent family history. Social History Tobacco Use Smoking status: Former Current packs/day: 0.00 Average packs/day: 1.5 packs/day for 22.0 years (33.0 ttl pk-yrs) Types: Cigarettes Start date: 11/14/1969 Quit date: 11/15/1991 Years since quittin.6 Smokeless tobacco: Never Substance Use Topics Alcohol use: No Drug use: Yes Frequency: 7.0 times per week Comment: cannabis Prior to Admission medications as of 07/11/24 1541 Medication Sig Last Dose Taking cephALEXin (KEFLEX) 500 mg capsule Take 1 capsule by mouth two times a day. Yes multivitamin (VITAMIN DAILY ORAL) Take by mouth. Takes 1/2 tab Yes Docosahexanoic Acid-Eicosapent (FISH OIL) 120-180 mg capsule Take 2 g by mouth once daily. Yes lisinopril (ZESTRIL, PRINIVIL) 10 mg tablet Take by mouth once daily. Yes warfarin (COUMADIN) 5 mg tablet Take by mouth daily as directed. Yes metoprolol tartrate, short acting, (LOPRESSOR) 50 mg tablet Take by mouth twice daily. Yes terazosin (HYTRIN) 5 mg capsule Take by mouth daily at bedtime. Yes simvastatin (ZOCOR) 40 mg tablet Take by mouth daily at bedtime. Yes coenzyme Q10 (COQ-10) 100 mg cap capsule Take by mouth twice daily. Yes Glucosamine Sulfate (GLUCOSAMINE) 500 mg tab Take 1 tablet by mouth. Yes cholecalciferol, vitamin D3, (VITAMIN D3 ORAL) Take by mouth. hydroCHLOROthiazide (HYDRODIURIL, ESIDRIX) 25 mg tablet Take by mouth once daily. Patient not taking: Reported on 07/06/2024 No medication comments found. ALLERGIES No Known Allergies Objective PHYSICAL EXAM: General: alert and oriented and healthy appearance. Skin: normal color, no rash or lesions. HEENT: pupils equal round and pupils reactive to light. Cardiovascular: regular rate and rhythm, normal S1 and S2, no rub, murmurs, or gallop. Respiratory: normal breath sounds, no wheezes or crackles. No chest wall deformity or tenderness. Abdomen: bowel sounds present and soft. Extremities: no deformity, no edema or tenderness, no joint swelling or clubbing. Neurological: normal cognition and motor skills. Gait normal. No weakness or sensory deficit. PAIN ASSESSMENT: VITALS: BP 150/61 Pulse 64 Temp (Src) 98 (Temporal) Ht 5' 8 (1.73m) Wt 217 lb 9.5 oz (98.7kg) SpO2 99% BMI 33.09 kg/(m^2). Diagnostic tests reviewed for today's visit: Lab Value Units Date High Low HB 14.7 g/dL 07/11/2024 17.0 13.0 HCT 45.1 % 07/11/2024 51.0 39.0 WBC 9.97 k/uL 07/11/2024 11.00 3.70 PLT 210 k/uL 07/11/2024 400 150 NA 141 mmol/L 07/11/2024 144 136 K 4.5 mmol/L 07/11/2024 5.1 3.7 GLUC 89 mg/dL 07/11/2024 99 74 BUN 16 mg/dL 07/11/2024 24 9 CREAT 1.00 mg/dL 07/11/2024 1.22 0.73 PTSEC 34.5 sec 07/11/2024 13.0 9.7 INR 3.5 no uni* 07/11/2024 1.3 0.9 APTT 38.2 sec 07/11/2024 32.4 23.0 ALT 23 U/L 07/11/2024 54 10 AST 25 U/L 07/11/2024 40 14 TBILI 0.3 mg/dL 07/11/2024 1.3 0.2 TSH No results within date range. Lab Value Units Date High Low HCGQT No results within date range. UHCG No results within date range. HCG, BODY* No results within date range. Lab Value Units Date High Low ABORHD No results within date range. ABSCREEN No results within date range. No results found for: HBA1C No results found for this or any previous visit (from the past 8760 hours). No results found for this or any previous visit (from the past 36478 hours). Instructions Given to Patient: Instructions located in the after visit summary. Patient given verbal and written preop instructions and voices comprehension and compliance. Reports daily use of inhalation, reports last use last night. Instructed no further use, hold for surgery. SIGNATURE: Osorio Brown APRN.CNP PATIENT NAME: Bill Allen DATE: July 11, 2024 TIME: 3:44 PM PAGER/CONTACT #: Addendum; Reviewed Type and Screen, CMP, CBC, CONABO, accepted. Awaiting A1C. documented in this encounterAvita [facility]04-28-[address] [facility]04-28-2025 History of Present illness Narrative* Lilliam Stein MD - 07/11/2024 1:42 PM EDT Images from the original note were not included. [facility] NEW PATIENT EVALUATION PATIENT NAME: Bill Allen : 1950 ATTENDING PHYSICIAN: Lilliam Stein MD DATE OF SERVICE: July 11, 2024 PCP: Dayron Cervantes MD REFERRING PROVIDER: Babak Hernández MD [id number] [place] [address] REASON FOR EVALUATION: Consultation requested by Dr. 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 My final recommendations will be communicated back to the requesting physician by way of shared electronic medical record or letter to the requesting physician via US mail. 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 His oncologic history is summarized below. 04/2024: Began to notice blood in his urine. He saw Dr. Micaela Ireland and underwent cystoscopy which demonstrated a bladder mass. 04/19/2024: CT A/P showed a bladder contour regularity/filling defect along the dome of the bladder concerning for urothelial neoplasm and moderate or severe superior mesenteric artery stenosis. 06/02/2024: Underwent TURBT which revealed high-grade muscle invasive urothelial carcinoma. He notes mild groin discomfort. States that after his angel catheter was removed he had some burning with urination that lasted for ~28 days which has now resolved. Ucx was negative for infection. Hereports adequate urinary stream. He has also had worsening BLE edema. He is not sexually active, has had severe ED past 10+ years, does not get erections. He denies any history of heart failure, peripheral neuropathy, renal dysfunction, or hearing loss. PAST MEDICAL HISTORY: PAST MEDICAL HISTORY Diagnosis Date BPH (benign prostatic hypertrophy) Bradycardia CAD (coronary artery disease) DVT of lower extremity (deep venous thrombosis) (HCC) bilateral Erectile dysfunction Former smoker 07/11/2024 History of basal cell carcinoma (BCC) 07/11/2024 HLD (hyperlipidemia) HTN (hypertension) Medical marijuana use 07/11/2024 Palpitations Renal artery stenosis Spinal stenosis in cervical region Superior mesenteric artery stenosis (HCC) 04/19/2024 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) 06/02/2024 PAST SURGICAL HISTORY: PAST SURGICAL HISTORY Procedure Laterality Date BLADDER BIOSPY FULGUR 06/02/2024 MEDICATIONS: Current Outpatient Medications Medication Sig cephALEXin (KEFLEX) 500 mg capsule Take 1 capsule by mouth two times a day. Docosahexanoic Acid-Eicosapent (FISH OIL) 120-180 mg capsule Take 2 g by mouth once daily. lisinopril (ZESTRIL, PRINIVIL) 10 mg tablet Take by mouth once daily. warfarin (COUMADIN) 5 mg tablet Take by mouth daily as directed. metoprolol tartrate, short acting, (LOPRESSOR) 50 mg tablet Take by mouth twice daily. terazosin (HYTRIN) 5 mg capsule Take by mouth daily at bedtime. simvastatin (ZOCOR) 40 mg tablet Take by mouth daily at bedtime. coenzyme Q10 (COQ-10) 100 mg cap capsule Take by mouth twice daily. Glucosamine Sulfate (GLUCOSAMINE) 500 mg tab Take 1 tablet by mouth. hydroCHLOROthiazide (HYDRODIURIL, ESIDRIX) 25 mg tablet Take by mouth once daily. (Patient not taking: Reported on 07/06/2024) No current facility-administered medications for this visit. ? ALLERGIES: ALLERGIES No Known Allergies ? FAMILY HISTORY: FAMILY HISTORY Problem Relation Age of Onset Prostate Cancer Father SOCIAL HISTORY: Social History Tobacco Use Smoking status: Former Current packs/day: 0.00 Average packs/day: 1.5 packs/day for 22.0 years (33.0 ttl pk-yrs) Types: Cigarettes Start date: 11/14/1969 Quit date: 11/15/1991 Years since quittin.7 Smokeless tobacco: Never Substance Use Topics Alcohol use: No Drug use: Yes Frequency: 7.0 times per week Comment: cannabis REVIEW OF SYSTEMS: Complete 10-point review of systems reviewed and negative except for that noted in the history of present illness. PHYSICAL EXAM: BP 149/72 Pulse 63 Temp 36.5 C (97.7 F) (Temporal) Resp 20 Ht 173.3 cm (5' 8.23 ) Wt 97.9kg (215 lb 13.3 oz) SpO2 100% BMI 32.60 kg/m Body surface area is 2.17 meters squared. ECOG/Karnofsky Performance Score: 0/100% General: In no acute distress, comfortable HEENT: Normocephalic, EOMI, conjunctiva clear Lungs: Non-labored respirations Extremities: Trace bilateral lower extremity edema Skin: No rashes or lesions Neuro: No gross or focal motor deficits, sensation intact LABS: Reviewed in CareEverywhere. PATHOLOGY: Reviewed and summarized above under HPI. IMAGING: Reviewed and summarized above under HPI. ASSESSMENT: Mr. 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 We discussed various modalities for the treatment of muscle-invasive bladder cancer including neoadjuvant chemoimmunotherapy followed by radical cystectomy and bladder-sparing trimodality therapy. We discussed the PRESERVE clinical trial, Phase II Trial on the Safety and Efficacy of Partial Cystectomy and Extended Pelvic Lymph Node Dissection With Standard of Care Perioperative Systemic Therapy in the Management of Muscle- Invasive Bladder Cancer which would involved neoadjuvant chemoimmunotherapy followed by partial cystectomy. We also reviewed that radiotherapy with concurrent radiosensitizing chemotherapy has been investigated in multiple prospective trials and can be an effective alternative to radical cystectomy in well-selected patients following maximal transurethral resection of the tumor. Laurier candidates for TMT include those with urothelial histology, those who have undergone maximal TURBT, cT2-T3a tumors, unifocal tumors <6cm, absence of extensive CIS, absence of tumor- associated hydronephrosis, adequatebaseline bladder function, adequate renal function, ability to receive concomitant chemotherapy andradiation, and no prior pelvic radiotherapy. We reviewed standard of care bladder-sparing chemoradiation options including concurrent chemoRT with cisplatin or 5-FU/MMC. We also discussed the bladder-sparing RAD-SG clinical trial, Adaptive Radiation therapy with concurrent Sacituzumab Govitecan (SG) for bladder preservation in patients with MIBC, but he was not interested as he [place] far away and does not want to commute daily to participate in the trial. PLAN: Follow up CT Chest, MRI bladder, and repeat TURBT on 07/18/2024. RTC to see me in coordination with Dr. Hernández once TURBT results are available to finalize treatment recommendations. Mr. Allen has our office contact information and knows how to reach us at any time with questions/concerns or if his clinical condition changes. I spent 80 minutes in total on this patient encounter including time [id number] with the patient,review of relevant records, communication with other members of the treatment team, and clinical documentation. Lilliam Stein MD Associate Staff, Genitourinary Medical Oncology [facility] [place] [address] July 11, 2024 Cc: Babak Hernández MD [address] [place] [address] * Kate Aquino LPN - 07/11/2024 1:17 PM EDT Additional intake questions: Has the patient had fever, nausea, vomiting, diarrhea, constipation, fatigue for > 1 week? No Does the patient have a decreased appetite? No Does patient want to see a Orthopedic Podiatrist? No (yes to any of above refer patient to schedulers for dietitian appointment) ) Does patient have any new or increased numbness or tingling of extremities? Yes, left foot Is patient interested in fertility information? No Does patient need any prescription refills? No Does patient have an advanced directive in place? No, Patient refused referral to Social Work or Resource Center documented in this encounterAvita [facility]04-28-[address] [facility]04-25-2025 NoteHNO ID: [id number] Author: LANETTE OSBORN APRN.RAILROAD TRACK INSPECTOR Service: ? Author Type: Nurse Practitioner Type: Progress Notes Filed: 07/08/2024 09:59 Note Text: [facility]04-25-2025 History of Present illness Narrative* Dat France, DO - 07/08/2024 9:00 AM EDT Subjective Patient ID: Bill Allen is a 73 y.o. male who presents for Mohs Reconstruction (Mohs left ear - SCC) HPI This patient presents for evaluation of Mohs defect of the left external ear. Underwent excision ofsquamous cell carcinoma in this area. Left with a soft tissue defect over the area of the left antihelical fold. Presents today to discuss options regarding repair/reconstruction. Review of Systems Patient has recovered from Mohs reconstruction in the area of the left mormon. Denies any pain or drainage from the area of his recent surgery. He is scheduled for treatment for bladder cancer in thenear future. The rest of his review of systems is unchanged Allergies as of 07/08/2024 (No Known Allergies) Past Medical History: Diagnosis Date Arthritis Basal cell carcinoma Former tobacco use 05/25/2024 Hypertension (CMS/HCC) Postoperative pain 05/25/2024 Squamous cell skin cancer 07/07/2024 Left anti-tragus, Mohs by Dr. Chung and repair by Dr. France Current Outpatient Medications: cephalexin (Keflex) 500 MG capsule, Take 1 capsule by mouth, bid x 10 days., Disp: 20 capsule, Rfl:0 cholecalciferol (Vitamin D-3) 50 MCG (2000 UT) capsule, Take 2,000 Units by mouth Daily, Disp: , Rfl: coenzyme Q-10 100 MG capsule, Take 1 capsule by mouth 1 (one) time each day at the same time, Disp:, Rfl: Zuowphokexb-Qnwbnvtgy-Jlu C-Mn (Glucosamine 1500 Complex) capsule, Take 1 capsule by mouth Daily, Disp: , Rfl: lisinopril 20 MG tablet, Take 1 tablet (20 mg) by mouth Daily, Disp: 90 tablet, Rfl: 3 metoprolol tartrate (Lopressor) 50 MG tablet, Take 1 tablet (50 mg) by mouth in the morning and 1 tablet (50 mg) before bedtime., Disp: 180 tablet, Rfl: 3 multivitamin (Theragran) tablet, Take 1 tablet by mouth Daily, Disp: , Rfl: omega-3 (FISH OIL) 300 MG capsule, Take 300 mg by mouth Daily, Disp: , Rfl: pneumococcal conjugate 20-valent (Prevnar 20) 0.5 ML vaccine, , Disp: , Rfl: simvastatin (Zocor) 20 MG tablet, Take 1 tablet (20 mg) by mouth at bedtime, Disp: 90 tablet, Rfl: 3 terazosin (Hytrin) 10 MG capsule, Take 1 capsule (10 mg) by mouth at bedtime, Disp: 90 capsule, Rfl: 3 warfarin (Coumadin) 5 MG tablet, Take 1 tablet daily, Disp: 90 tablet, Rfl: 3 Past Surgical History: Procedure Laterality Date WOUND DEBRIDEMENT 05/18/2024 Mohs repair left mormon Social History Socioeconomic History Marital status: Spouse name: Not on file Number of children: Not on file Years of education: Not on file Highest education level: Not on file Occupational History Not on file Tobacco Use Smoking status: Never Smokeless tobacco: Never Vaping Use Vaping status: Every Day Substances: THC Substance and Sexual Activity Alcohol use: Never [...] overview: Normal, age-appropriate, no evidence of distress Head: Normocephalic, the area of recent repair in the left temporal region has healed up very nicely. Eyes: Pupils are equally round and reactive to light and accommodation, extraocular muscles are intact Ears: External ear architecture shows a 1 x 2.5 cm soft tissue defect in the area of the anti helical fold on the left. There is some exposure of the underlying cartilage. No evidence of infection., ear canals are patent, tympanic membranes are intact. Pathology was positive for squamous carcinoma. Nose: External nose unremarkable, nares patent, septum [...] orders for this visit: 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 Comments: Recommend the patient proceed with his upcoming bladder surgery. We will see him back when he is recovered. There is evidence of significant deformity of the external ear when he returns, we will consider surgical intervention at that time. documented in this encounterGolden Valley Memorial [id number] History of Present illness Narrative* Arjun Chung MD - 07/07/2024 1:45 PM EDT Images from the original note were not included. Mohs Surgery Location: Left anti-tragus Date of biopsy: 06/28/2024 Diagnosis: Squamous Cell Carcinoma All pertinent medical history, medications, and allergies were reviewed. General Exam: alert, oriented to person, place, and time, normal affect, well appearing Unaccompanied A focused exam completed based on patient reported problems, see below: Skin Exam 1. SQUAMOUS CELL CANCER OF SKIN OF TRAGUS OF LEFT EAR Left anti-tragus Firm nodule at the biopsy site. Mohs surgery Consent obtained: written (The rationale for Mohs as well as the risks, benefits, and alternatives.The risks of infection, scarring, bleeding, prolonged wound healing, incomplete removal, allergy toanesthesia or meds, nerve injury, and recurrence were addressed.) [place] Protocol: Procedure explained and questions answered to patient or proxy's satisfaction: Yes Test results available and properly labeled: Yes Pathology report reviewed: Yes Photo or diagram used for site identification: Yes Site/side marked: Yes Anticoagulation: Is the patient taking prescription anticoagulant and/or aspirin prescribed/recommended by a physician? Yes (Coumadin) Was the anticoagulation regimen changed prior to Mohs? No Anesthesia: Anesthesia method: local infiltration Local anesthetic: lidocaine 1% WITH epi and sodium bicarbonate Procedure Details: Biopsy accession number: [id number] Biopsy lab: [facility] Date of biopsy: 06/28/2024 Frozen section biopsy performed: Yes Specimen debulked: Yes (5 mm curette) Pre-Op diagnosis: squamous cell carcinoma SCC subtype: moderately well-differentiated. MohsAIQ Surgical site (if tumor spans multiple areas, please select predominant area): ear Surgery side: left Surgical site (from skin exam): Left anti-tragus Pre-operative length (cm): 1.2 Pre-operative width (cm): 1.2 Indications for Mohs surgery: anatomic location where tissue conservation is critical Previously treated? No Mohs Appropriate Use Criteria Score: 8 Details of micrographic surgery: Mohs accession number: [id number] Micrographic Surgery Details: Post-operative length (cm): 1.5 Post-operative width (cm): 1.1 Number of Mohs stages: 1 Stage 1 Comments: The area was prepped [...] lab where it was chromacoded and processed. Mohssections were prepared with serial tissue sections, stained, and evaluated by Dr. Chung for interpretation of deep and peripheral margins. The Mohs map was marked accordingly. Amount of lidocaine used: 2.5 cc Estimated blood loss: <1.0 cc Defect size: 1.5 x 1.1 cm Number of blocks per stage: 1 Number of positive blocks: 0. Tumor free margins were obtained and the Mohs procedure was considered complete. Depth of tumor invasion after stage: cartilage Patient tolerance of procedure: tolerated well, no immediate complications Reconstruction: Was the defect reconstructed? Yes Was reconstruction performed by the same Mohs surgeon? No If no, what is the specialty of the surgeon who did the reconstruction? ENT facial plastics When was reconstruction performed? different day Antibiotics: Were antibiotics given on the day of surgery? Yes When were antibiotics given? post-operative Ambulatory referral to ENT cephalexin (Keflex) 500 MG capsule Take 1 capsule by mouth, bid x 10 days. Mohs Post Operative Type of repair: Referred for repair to Abdirizak France DO. Consult is tomorrow at 9:00 am. Wound Care: A dressing was placed on the surgical wound. Post-operative instructions were given in writing and were reviewed with the patient. A follow- up appointment was made, and instructions were given to follow-up sooner if necessary. Next visit: 6 months, skin check documented in this encounterGolden Valley Memorial [id number] [facility] History of Present illness Narrative* Lena Moss MD - 06/28/2024 9:05 AM EDT Images from the original note were not included. Lesions: Location: Left ear Duration: months Quality: denies itch, denies pain Associated symptoms: non-healing Treatments: none All pertinent medical history, medications, and allergies were reviewed. General Exam: alert, oriented to person, place, and time, normal affect, well appearing Unaccompanied A focused exam completed based on patient reported problems, see below: Skin Exam 1. NEOPLASM OF UNSPECIFIED BEHAVIOR OF BONE, SOFT TISSUE, AND SKIN Left Cavum Rhodes papule Lesion biopsy Type of biopsy: tangential [...] details: Photo taken Amount of lidocaine used: 0.5 cc Specimen A - Dermatopathology exam Differential Diagnosis: SCC vs BCC Check Margins: No Size of lesion: 1.2 x 1.2 cm Next Visit: pending biopsy results documented in this encounterGolden Valley Memorial [id number] History of Present illness Narrative* Dat France DO - 06/23/2024 10:45 AM EDT Subjective Patient ID: Bill Allen is a 73 y.o. male who presents for Post-op (1 month geetha mohs) HPI This patient presents for recheck of Mohs defect of the left mormon. Patient has undergone flap reconstruction of this region. Doing well. Review of Systems Patient describes mild amount of numbness in the area of surgical intervention. Also describes episodic muscle twitching at times. No pain or drainage. The rest of his review of systems is unchanged Objective ENT Physical Exam The flap is in good position and healing extremely well. Patient does have an area of lesion in thearea of the tragus on the left. This is pending dermatology biopsied Assessment/Plan Diagnoses and all orders for this visit: Mohs defect of mormon region Comments: Patient healing up very well. We will see him back as needed documented in this encounterGolden Valley Memorial [id number] NotePatient Education Oncology Bladder Cancer Bladder cancer is a condition where abnormal tissue (a tumor) grows in the bladder. The bladder is the organ that holds urine. Two tubes (ureters) carry urine from the kidneys to the bladder. The bladder wall is made of layers of tissue. Cancer that spreads through these layers of the bladder wall becomes more difficult to treat. What increases the risk? The following factors may make you more likely to develop this condition: ??? Smoking. ??? Working where there are risks (occupational exposures), such as working with rubber, leather, clothing fabric, dyes, chemicals, or paint. ??? Being 55 years of age or older. ??? Being male. ??? Having long-term bladder inflammation. ??? Having a history of cancer. This includes: ? A family history of bladder cancer. ? Having had bladder cancer before. ? Having had certain treatments for cancer before, such as: ? Medicines to kill cancer cells (chemotherapy). ? Strong X-ray beams or high-energy capsules to kill cancer cells and shrink tumors (radiation therapy). ??? Having been exposed to arsenic. This is a poisonous substance. What are the signs or symptoms? Early symptoms of this condition include: ??? Blood in your urine. ??? Pain when urinating. ??? Infections of your urinary system (urinary tract infections or UTIs) that happen often. ??? Having to urinate sooner or more often than normal. Late symptoms of this condition include: ??? Not being able to urinate. ??? Pain on one side of your lower back. ??? Loss of appetite. ??? Weight loss. ??? Tiredness (fatigue). ??? Swelling in your feet. ??? Bone pain. How is this diagnosed? This condition is diagnosed based on: ??? Your medical history. ??? A physical exam. ??? Lab tests, such as urine tests. ??? Imaging tests. ??? Your symptoms. You may also have other tests or procedures, such as: ??? A cystoscopy. This involves putting a narrow tube into your urethra. The urethra is the organ that carries urine from your bladder to the outside of your body. This procedure is done to view the lining of your bladder for tumors. ??? A biopsy. This involves removing a tissue sample to look at under a microscope to check for cancer. Blood tests or imaging tests may be needed. These show how far into the bladder wall cancer has grown, and if cancer has spread to any other parts of your body. Tests may include: ??? CT scan. ??? MRI. ??? Bone scan. ??? X-ray. How is this treated? Your health care provider may recommend one or more types of treatment based on the stage of your cancer. The most common treatments are: ??? Surgery to remove the cancer. Types of surgeries include: ? Removing a tumor on the inside wall of the bladder (transurethral resection). ? Removing the bladder (cystectomy). ??? Radiation therapy. This is often combined with chemotherapy. ??? Chemotherapy. ??? Immunotherapy. This uses medicines to help your body's disease-fighting system (immune system) destroy cancer cells. Follow these instructions at home: ??? Take ejzh-tsg-pyzbszx and prescription medicines only as told by your health care provider. ??? If you were prescribed an antibiotic medicine, take it as told by your health care provider. Donot stop using the antibiotic even if you start to feel better. ??? Eat a healthy diet. Some treatments might affect your appetite. ??? Do not use any products that contain nicotine or tobacco. These products include cigarettes, chewing tobacco, and vaping devices, such as e-cigarettes. If you need help quitting, ask your health care provider. ??? Consider joining a support group. This may help you learn to deal with the stress of having bladder cancer. ??? Tell your cancer care team if you develop side effects. Your team may be able to recommend waysto get relief. ??? Keep all follow-up visits. This is important. Where to find more information ??? [place] [employer] (ACS): cancer.org ??? [employer] (NCI): cancer.gov Contact a health care provider if: ??? You have symptoms of a UTI. These include: ? Fever. ? Chills. ? Weakness. ? Muscle aches. ? Pain in your abdomen. ? Urge to urinate that is stronger and happens more often than normal. ? Burning in the bladder or urethra when you urinate. Get help right away if: ??? There is blood in your urine. ??? You cannot urinate. ??? You have severe pain or other symptoms that do not go away. Summary ??? Bladder cancer is a condition where tumors grow in the bladder. ??? Diagnosis is based on your medical history, a physical exam, lab tests, imaging tests, and yoursymptoms. ??? Your health care provider may recommend one or more types of treatment based on the stage of your cancer. ??? Consider joining a support group. This may help you learn to deal with the stress of having bladder cancer. This information is n (more content not included)...[facility] 06-14-2024 History of Present illness Narrative* Mellisa Frausto MA - 09/26/2024 9:19 AM EDT Back office UA test performed. Results entered in [employer] and doctor notified. Mellisa Frausto MA documented in this encounterAv[facility] Miscellaneous Notes* Telephone Encounter - Mellisa Frausto MA - 09/05/2024 8:06 AM EDT Patient coming in today Thursday09/05/24 for follow up treatment. Please add lab orders. Thanks. Mellisa Frausto MA documented in this encounterAv[facility]03-12-[facility] History of Present illness Narrative* Latonia Thornton DO - 05/25/2024 2:15 PM EDT HPI Patient presents today 1 week postop repair of a left mormon Mohs defect by Dr. Hyltonutilizing a flap.He is doing fine. Relevant postoperative physical examination Sutures are removed, flap 100 percent viable and healing nicely. Assessment/plan Bill was seen today for post-op. Diagnoses and all orders for this visit: Mohs defect of mormon region (Primary) Comments: Patient given wound instructions, he should see Dr. Hare in the next 2 weeks. documented in this encounterGolden Valley Memorial [id number] History of Present illness Narrative* Dat France, - 05/12/2024 8:45 AM EST Subjective Patient ID: Bill Allen is a 73 y.o. male who presents for Mohs Reconstruction (New Patient : Mohsleft mormon / BCC) HPI 73-year-old white male presents today for evaluation of Mohs defect of the left mormon. Patient recently underwent excision of basal cell [...] time each day at the same time, Disp:, Rfl: Vwcovmzwovs-Sbmjldbgz-Cxy C-Mn (Glucosamine 1500 Complex) capsule, Take 1 [...] tissue defect of the left forehead and mormon region. This does approximate the area of the lateral brow. No evidence of hemorrhage. Eyes: Pupils are equally round and reactive to light and accommodation, extraocular muscles are intact Ears: External ear architecture within normal limits, ear canals are patent, tympanic membranes areintact. Nose: External nose unremarkable, nares patent, septum [...] injury, serous disability, and documented in this encounterGolden Valley Memorial [id number] History of Present illness Narrative* Arjun Chung MD - 05/10/2024 1:30 PM EST Images from the original note were not included. Mohs Surgery Location: Left mormon Date of biopsy: 02/24/2024 Diagnosis: Basal Cell Carcinoma Lesions: Location: Left ear Duration: months Quality: denies itch Associated symptoms: non-healing Treatments: none All pertinent medical history, medications, and allergies were reviewed. General Exam: alert, oriented to person, place, and time, normal affect, well appearing A focused exam completed based on patient reported problems, see below: 1. Basal cell carcinoma (BCC) of left mormon region Left Anabaptist Waxy, erythematous plaque at the biopsy site. Mohs surgery Consent obtained: written (The rationale for Mohs as well as the risks, benefits, and alternatives.The risks of infection, scarring, bleeding, prolonged wound healing, incomplete removal, allergy toanesthesia or meds, nerve injury, and recurrence were addressed.) [place] Protocol: Procedure explained and questions answered to [...] sodium bicarbonate Procedure Details: Biopsy accession number: [id number] Biopsy lab: [facility] Date of biopsy: 02/24/2024 Frozen section biopsy performed: Yes Specimen debulked: Yes Pre-Op diagnosis: basal cell carcinoma BCC subtype: nodular MohsAIQ Surgical site (if tumor spans multiple areas, please select predominant area): mormon Surgery side: left Surgical site (from skin exam): Left Anabaptist Pre-operative length (cm): 1.2 Pre-operative width (cm): [...] lab where it was chromacoded and processed. Mohssections were prepared with serial tissue sections, stained, [...] and were reviewed with the patient. A follow- up appointment was made, and instructions were given to follow-up sooner if necessary. Related Procedures Ambulatory referral to ENT 2. Skin neoplasm Left Intertragic Notch Erythematous dome-shaped nodule with central hyperkeratosis. 1.0 x 1.0 cm Biopsy deferred today due to insurance constraints Next visit: 06/06/2024 documented in this encounterGolden Valley Memorial [id number] Hospital Discharge instructions Patient Education 04/11/2024 14:05:15 [...] including vitamins, herbs, eye drops, creams, and plqs-dwu-pwmsyrg medicines. Any problems you or family members [...] provider tells you to take them. Taking xjge-edu-ryjgppj medicines, vitamins, herbs, and supplements. Tests You [...] Follow these instructions at home: Medicines Take btak-bri-anpkrxm and prescription medicines only as told by your health care provider. If you were prescribed an antibiotic medicine, take it as told by your health care provider. Do notstop taking the antibiotic even if you start [...] blood in your urine increases, call your healthcare provider. Follow instructions from your health care provider about eating or drinking restrictions. If a tissue sample was removed for testing (biopsy) during your procedure, it is up to you to get your test results. Ask your health care provider, or the department that is doing the test, when yourresults will be ready. Drink enough fluid to [...] blood in your urine increases, call your healthcare provider. If you were prescribed an antibiotic medicine, take it as told by your health care provider. Do notstop taking the antibiotic even if you start to feel better. This information is not intended to replace advice given to you by your health care provider. Make sure you discuss any questions you have with your health care provider. Document Revised: 11/13/2021 Document Reviewed: 10/12/2020 [employer] Patient Education 2023 [email or web address]. 04/11/2024 14:05:12 Hematuria, Adult Hematuria, Adult Hematuria is blood in the urine. Blood may be visible in the urine, or it may be identified with a test. This condition can be caused by infections of the bladder, urethra, kidney, or prostate. Otherpossible causes include: Kidney stones. Cancer of the [...] blood in your urine, even if it ispainless or the blood stops without treatment. Blood in the urine, when it happens and then stops and then happens again, can be a symptom of a very serious condition, including cancer. There is no pain in the initial stages of many urinary cancers. Follow these instructions at home: Medicines Take kwnu-dse-kbkhywz and prescription medicines only as told by your health care provider. If you were prescribed an antibiotic medicine, take it as told by your health care provider. Do notstop taking the antibiotic even if you start to feel better. Eating and drinking Drink enough fluid to keep your urine pale yellow. It is recommended that you drink 3 4 quarts (2.83.8 L) a day. If you have been diagnosed with an infection, drinking cranberry juice in addition tolarge amounts of water is recommended. Avoid caffeine, [...] about any blood in your urine, even ifit is painless or the blood stops without treatment. Take yvfc-zbk-nzuvsto and prescription medicines only as told by your health care provider. Drink enough fluid to keep your urine pale yellow. This information is not intended to replace advice given to you by your health care provider. Make sure you discuss any questions you have with your health care provider. Document Revised: 10/31/2020 Document Reviewed: 10/31/2020 [employer] Patient Education 2023 [email or web address]. Follow Up Care 04/01/2024 13:45:18 With:BEKA CROCKETT, Micaela Carpenter, URL Address: [facility] [address] [place] [address] [phone] When: Unknown [facility] 01-27-2025 NotePatient Education Urology Cystoscopy Cystoscopy is a procedure [...] including vitamins, herbs, eye drops, creams, and ghzi-pwh-zymepyk medicines. ??? Any problems you or family [...] tells you to take them. ??? Taking arhd-zen-uaqnfbw medicines, vitamins, herbs, and supplements. Tests You [...] cystoscope to fill your bladder. The fluid willstretch your bladder so that your health care [...] these instructions at home: Medicines ??? Take tfdb-nza-celpjdb and prescription medicines only as told by your health care provider. ??? If you were prescribed an antibiotic medicine, take it as told by your health care provider. Donot stop taking the antibiotic even if you [...] testing (biopsy) during your (more content not included)...[facility]01-27-[facility] Evaluation + Plan note Diagnostic Tests Pending * [facility] Fish and Urine Cyto ([facility]) 04/11/24 [facility] 01-16-2025 History of Present illness Narrative* Dayron Cervantes MD - 03/31/2024 10:30 AM ESTAssociated Problem(s): Prediabetes Glucose in urine but A1C 6.0 and still prediabetes. Need low carb diet. * Dayron Cervantes MD - 03/31/2024 10:30 AM ESTAssociated Problem(s): Gross hematuria Blood in urine and no pain or symptoms. Urine culture from ER negative. Repeat UA in office showed blood and glucose but no leukocytes and nitrite negative. Send for culture. Refer to urology for possible cystoscopy. * Dayron Cervantes MD - 03/31/2024 9:30 AM EST Images from the original note were not included. Subjective Patient ID: Bill Allen is a 73 y.o. male who presents for Blood in Urine. HPI Review of Systems Objective Physical Exam Assessment/Plan * Dayron Cervantes MD - 03/31/2024 9:30 AM EST Images from the original note were not [...] urology for possible cystoscopy. documented in this encounterGolden Valley Memorial [id number] History of Present illness Narrative* MARIA VICTORIA Lara - 02/24/2024 1:20 PM EST Images from the original note were not included. Follow up Diagnosis: NUB Location: Left Anabaptist Last visit:02/09/2024 Patient is here for Biopsy today. Established Patient All pertinent medical history, medications, and allergies were reviewed. General Exam: alert, oriented to person, place, and time, normal affect, well appearing Unaccompanied A focused exam completed based on patient reported problems, see below: 1. Neoplasm of unspecified behavior of bone, soft tissue, and skin Left Anabaptist Erythematous papule Lesion biopsy Type of biopsy: [...] Visit: pending biopsy results documented in this encounterGolden Valley Memorial HospitalOpbfxqpceh94-48-0628 History of Present illness Narrative* Dayron Cervantes MD - 02/24/2024 9:51 AM ESTAssociated Problem(s): Spinal stenosis of lumbar region with radiculopathy Continued pain and continue PT exercises. Increase activity and walk regularly. * Dayron Cervantes MD - 02/24/2024 9:50 AM ESTAssociated Problem(s): PVC (premature ventricular contraction) No symptoms and continue metoprolol. * Dayron Cervantes MD - 02/24/2024 9:50 AM ESTAssociated Problem(s): Bilateral primary osteoarthritis of hip Pain unchanged and follow with ortho. * Dayron Cervantes MD - 02/24/2024 9:50 AM ESTAssociated Problem(s): Benign hypertension (CMS/HCC) BP controlled and monitor PRN. Discussed DASH diet. * Dayron Cervantes MD - 02/24/2024 9:00 AM EST Images from the original note were not [...] surgery. Continues to have pain in back andlimiting activity. If walk will develop pain and ache in bilateral low back and need to stop and rest. Still occasional pain in right hip and into groin. Seen ortho and will have hip replacement nextyear. PVCs stable. No palpitations or heart racing. [...] and follow with ortho. documented in this encounterGolden Valley Memorial [id number] History of Present illness Narrative* MARIA VICTORIA Lara - 02/09/2024 2:00 PM EST Lesions: Location: left mormon Duration: years Quality: denies pain, denies itch, [...] see below: 1. Neoplasm of skin Left Anabaptist 1.1 x 1.0 cm Erythematous papule Recommended biopsy today. Lesion is suspicious for BCC and biopsy is needed. He would like to return after the holiday for biopsy. Return in 1-2 weeks. Stressed importance of his return for biopsy 2. Seborrheic keratosis Right Anabaptist Stuck on verrucous, variably pigmented papules and [...] biopsy and LN2 [place] documented in this encounterGolden Valley Memorial [id number] History of Present illness Narrative* Jose Yen, CAMILO - 12/16/2023 10:15 AM EDT Images from the original note were not included. Subjective Patient ID: Bill Allen is a 73 y.o. 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 Symptoms were present with walking, standing. Patient states that once hestarted his blood thinner backup he did not notice the pain as much. Over the last few weeks he hashad no pain at all. He thinks that [...] Past Medical History: Diagnosis Date Arthritis Hypertension (CMS/[facility]) Medications Current Outpatient Medications: cholecalciferol (Vitamin D-3) 50 MCG (1999 UT) capsule, Take 2,000 Units by mouth in the morning., Disp: , Rfl: coenzyme Q-10 100 MG capsule, Take 1 capsule by mouth 1 (one) time each day at the same time, Disp:, Rfl: Wzbzqizzsrz-Excsuwxod-Kdf C-Mn (Glucosamine 1500 Complex) capsule, Take 1 [...] understanding. Jose Yen DPM documented in this encounterGolden Valley Memorial [id number] History of Present illness Narrative* Staci Omer, PT - 11/25/2023 10:00 AM EDT Physical Therapy Treatment Visit / DISCHARGE Patient [...] difficulty putting on shoes and socks. Precautions: [place]; h/o blood clots, on thinners Subjective: Pt [...] HP to low back in supine before manualand there ex. Assessment: Pt has completed 5 PT session for right hip and low back pain. ROM of right hip is 21 degrees abduction and IR to neutral. Strength right hip flexion, abduction, and ER 5/5. Pt completes 5 sit to stands in 8.58 seconds. LEFS score 48/80. We will now discharge to home program with 6 or 7goals met. Outcome Measure: Lower Extremity Functional Scale (LEFS): 36/80 Rehab Diagnosis: right hip pain and weakness; low back pain causing difficulty walking. Short Term Goal: To be met in 2 weeks Goal 1: Pt to be instructed in home exercise program. - met Residential Goals: To be met in 10 weeks [...] Discharge to home program. documented in this encounterGolden Valley Memorial HospitalMwygqrdftv90-68-2375 History of Present illness Narrative* Staci Omer PT - 11/11/2023 9:30 AM EDT Physical Therapy Treatment Visit Patient Name: Bill [...] difficulty putting on shoes and socks. Precautions: [place]; h/o blood clots, on thinners Subjective: Pt [...] HP to low back in supine before manualand there ex. Assessment: Pt has completed 4 [...] to be instructed in home exercise program. Residential Goals: To be met in 10 weeks [...] Please sign below. Date: documented in this encounterGolden [facility] [id number] History of Present illness Narrative* Staci Omer PT - 11/05/2023 10:30 AM EDT Physical Therapy Treatment Visit Patient Name: Bill [...] difficulty putting on shoes and socks. Precautions: [place]; h/o blood clots, on thinners Subjective: Pt [...] HP to low back in supine before manualand there ex. Assessment: Pt has completed 3 PT session for right hip and low back pain. Core strength is fair. Limited progression of right hip strengthening due to pt c/o mild increase discomfort this date. Willcontinue. Outcome Measure: Lower Extremity Functional Scale (LEFS): 36/80 Rehab Diagnosis: right hip pain and weakness; low back pain causing difficulty walking. Short Term Goal: To be met in 2 weeks Goal 1: Pt to be instructed in home exercise program. Bi Technical Lead Goals: To be met in 10 weeks [...] Please sign below. Date: documented in this [facility]07-16-2024 Instructions* Patient Instructions* Ysabel Zapata RN - 09/29/2023 10:30 AM [...] you have a Living Will/Durable Power of Outsole Tacker for Health Care that is not on file here, please bring a copy the day of surgery. 3. Please wash your face with baby shampoo prior to procedure as instructed by your physician. 4. NO powder, lotion, perfume/cologne, aftershave, make-up, nail lebanese on at least one finger, deodorant, or [...] you home when you are discharged from yourhospital stay for your surgery. You must NOT [...] please call the Preadmission Testing office at [phone], Mon.-Fri. 7 a.m.-3 p.m. Leave a voicemail [...] 50 mg tablet Take morning of procedure xtowpbwl-tfjr-DP-calcium &mins (THERAGRAN-M) 9 mg iron-400 mcg tablet Stop taking 0 days prior to procedure omega 3-mvm-lfz-fish oil (Fish OiL) 300-1,000 mg capsule Stop taking 1 week prior to procedure simvastatin (ZOCOR) 20 mg tablet Stop taking 0 days prior to procedure terazosin (HYTRIN) 10 mg capsule Stop taking 0 days prior to procedure warfarin (COUMADIN) 5 mg tablet Check with prescribing doctor for instructions documented in this encounterUniversity [facility] Miscellaneous Notes* Perioperative Nursing Note - Ysabel Zapata RN - 09/29/2023 10:30 AM [...] you have a Living Will/Durable Power of Outsole Tacker for Health Care that is not on file here, please bring a copy the day of surgery. 3. Please wash your face with baby shampoo prior to procedure as instructed by your physician. 4. NO powder, lotion, perfume/cologne, aftershave, make-up, nail lebanese on at least one finger, deodorant, or [...] you home when you are discharged from yourhospital stay for your surgery. You must NOT [...] please call the Preadmission Testing office at [phone], Mon.-Fri. 7 a.m.-3 p.m. Leave a voicemail [...] 50 mg tablet Take morning of procedure mrdgvbhe-lqpr-AP-calcium &mins (THERAGRAN-M) 9 mg iron-400 mcg tablet Stop taking 0 days prior to procedure omega 5-gie-bzj-fish oil (Fish OiL) 300-1,000 mg capsule Stop taking 1 week prior to procedure simvastatin (ZOCOR) 20 mg tablet Stop taking 0 days prior to procedure terazosin (HYTRIN) 10 mg capsule Stop taking 0 days prior to procedure warfarin (COUMADIN) 5 mg tablet Check with prescribing doctor for instructions * Perioperative Nursing Note - Ysabel Zapata RN - 09/29/2023 10:30 AM EDT Surgical instructions reviewed. Patient verbalized understanding. Instructed patient to clarify with Dr Frausto's office about holding his Coumadin prior to surgery as she instructed for 10 days, but anesthesia only requires 5 days. Patient is concerned about developing a blood clot. He is heading toher office now. documented in this encounterUniversity [facility]24 Nurse Note* Perioperative Nursing Note - Ysabel Zapata RN - 09/29/2023 10:30 AM [...] you have a Living Will/Durable Power of Outsole Tacker for Health Care that is not on file here, please bring a copy the day of surgery. 3. Please wash your face with baby shampoo prior to procedure as instructed by your physician. 4. NO powder, lotion, perfume/cologne, aftershave, make-up, nail lebanese on at least one finger, deodorant, or [...] you home when you are discharged from yourhospital stay for your surgery. You must NOT [...] please call the Preadmission Testing office at [phone], Mon.-Fri. 7 a.m.-3 p.m. Leave a voicemail [...] 50 mg tablet Take morning of procedure alprqtau-jmcp-CD-calcium &mins (THERAGRAN-M) 9 mg iron-400 mcg tablet Stop taking 0 days prior to procedure omega 9-gti-wgg-fish oil (Fish OiL) 300-1,000 mg capsule Stop taking 1 week prior to procedure simvastatin (ZOCOR) 20 mg tablet Stop taking 0 days prior to procedure terazosin (HYTRIN) 10 mg capsule Stop taking 0 days prior to procedure warfarin (COUMADIN) 5 mg tablet Check with prescribing doctor for instructions [id number] Nurse Note* Perioperative Nursing Note - Ysabel Zapata RN - 09/29/2023 10:30 AM EDT Surgical instructions reviewed. Patient verbalized understanding. Instructed patient to clarify with Dr Frausto's office about holding his Coumadin prior to surgery as she instructed for 10 days, but anesthesia only requires 5 days. Patient is concerned about developing a blood clot. He is heading toher office now. [facility] No data available for this section [facility] evaluation note* Diagnosis Onset Date Resolution Status Bilateral primary osteoarthritis of hip acuteSpinal stenosisSam[facility]itan [facility] Work Phone: Evaluation note* Diagnosis Hammer toe of right foot- Primary History of DVT (deep vein thrombosis) documented in this encounter [facility]* Diagnosis Benign hypertension (CMS/HCC)- [...] keratosis Actinic keratosis documented in this encounter [facility]* Diagnosis Benign hypertension (CMS/HCC)- [...] and skin- Primary documented in this encounter [facility]Evaluation note* Diagnosis Bilateral primary osteoarthritis of hip- Primary Spinal stenosis, unspecified spinal region documented in this encounter [facility] HealthcareEvaluation note* Diagnosis Bilateral primary osteoarthritis of hip- Primary Spinal stenosis, unspecified spinal region documented in this encounter [facility] HealthcareEvaluation noteNo assessment information availableOhio [facility] Work Phone: Evaluation note* Diagnosis [...] Other abnormal glucose documented in this encounter [facility] HealthcareEvaluation note* Diagnosis Preop examination- Primary Unspecified pre-operative examination Anticoagulated Encounter for long-term (current) use of 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 Preop examination Unspecified pre-operative examination [facility] Diagnosis Benign hypertension (CMS/HCC)- Primary [...] glucose Basal cell carcinoma (BCC) of left mormon region- Primary Skin neoplasm Neoplasm of unspecified nature of bone, soft tissue, and skin documented in this encounter [facility] HealthcareEvaluation note* Diagnosis Benign hypertension (CMS/HCC)- [...] of forehead- Primary documented in this encounter [facility] [...] Prediabetes Other abnormal glucose Mohs defect of mormon region- Primary documented in this encounter [facility]Evaluation note* Diagnosis Benign hypertension (CMS/HCC)- [...] Gross hematuria- Primary Prediabetes Other abnormal glucose Encounter for preoperative assessment- Primary Bladder tumor Neoplasm of unspecified nature of bladder Mohs defect of mormon region- Primary documented in this encounter [facility]Evaluation note* Diagnosis Benign hypertension (CMS/HCC)- [...] Gross hematuria- Primary Prediabetes Other abnormal glucose Encounter for preoperative assessment- Primary Bladder tumor Neoplasm of unspecified nature of bladder Neoplasm of unspecified behavior of bone, soft tissue, and skin- Primary documented in this encounter [facility] HealthcareEvaluation note* Diagnosis Benign hypertension (CMS/HCC)- [...] Gross hematuria- Primary Prediabetes Other abnormal glucose Encounter for preoperative assessment- Primary Bladder tumor Neoplasm of unspecified nature of bladder 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- Primary documented in this encounter [facility]Evaluation note* Diagnosis Benign hypertension (CMS/HCC)- [...] Gross hematuria- Primary Prediabetes Other abnormal glucose Encounter for preoperative assessment- Primary Bladder tumor Neoplasm of unspecified nature of bladder 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- Primary documented in this encounter [facility]Evaluation note* Diagnosis Pre-op evaluation- Primary Preoperative examination, unspecified Prediabetes Other abnormal glucose Medical marijuana use Encounter for long-term (current) use of other medications Former smoker Personal history of tobacco use, presenting hazards to health Personal history of DVT (deep vein thrombosis) Personal history of venous thrombosis and embolism Pulmonary fibrosis (HCC) Postinflammatory pulmonary fibrosis Benign hypertension Essential hypertension, benign Hypercholesterolemia Pure hypercholesterolemia Gastroesophageal reflux disease, unspecified whether esophagitis present History of SCC (squamous cell carcinoma) of skin Personal history of other malignant neoplasm of skin History of basal cell carcinoma (BCC) Malignant neoplasm of urinary bladder, unspecified site (HCC) [facility]* Diagnosis Benign hypertension (CMS/HCC)- Primary Essential [...] Gross hematuria- Primary Prediabetes Other abnormal glucose Encounter for preoperative assessment- Primary Bladder tumor Neoplasm of unspecified nature of bladder 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- Primary [facility]* Diagnosis Pre-op evaluation- Primary Preoperative examination, unspecified Prediabetes Other abnormal glucose Medical marijuana use Encounter for long-term (current) use of other medications Former smoker Personal history of tobacco use, presenting hazards to health Personal history of DVT (deep vein thrombosis) Personal history of venous thrombosis and embolism Pulmonary fibrosis (HCC) Postinflammatory pulmonary fibrosis Benign hypertension Essential hypertension, benign Hypercholesterolemia Pure hypercholesterolemia Gastroesophageal reflux disease, unspecified whether esophagitis present History of SCC (squamous cell carcinoma) of skin Personal history of other malignant neoplasm of skin History of basal cell carcinoma (BCC) 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 [facility] Diagnosis Pre-op evaluation- Primary Preoperative examination, unspecified Prediabetes Other abnormal glucose Medical marijuana use Encounter for long-term (current) use of other medications Former smoker Personal history of tobacco use, presenting hazards to health Personal history of DVT (deep vein thrombosis) Personal history of venous thrombosis and embolism Pulmonary fibrosis (HCC) Postinflammatory pulmonary fibrosis Benign hypertension Essential hypertension, benign Hypercholesterolemia Pure hypercholesterolemia Gastroesophageal reflux disease, unspecified whether esophagitis present History of SCC (squamous cell carcinoma) of skin Personal history of other malignant neoplasm of skin History of basal cell carcinoma (BCC) 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) [facility]* Diagnosis Pre-op evaluation- Primary Preoperative examination, unspecified Prediabetes Other abnormal glucose Medical marijuana use Encounter for long-term (current) use of other medications Former smoker Personal history of tobacco use, presenting hazards to health Personal history of DVT (deep vein thrombosis) Personal history of venous thrombosis and embolism Pulmonary fibrosis (HCC) Postinflammatory pulmonary fibrosis Benign hypertension Essential hypertension, benign Hypercholesterolemia Pure hypercholesterolemia Gastroesophageal reflux disease, unspecified whether esophagitis present History of SCC (squamous cell carcinoma) of skin Personal history of other malignant neoplasm of skin History of basal cell carcinoma (BCC) 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) documented [facility]* Diagnosis Pre-op evaluation- Primary Preoperative examination, unspecified Prediabetes Other abnormal glucose Medical marijuana use Encounter for long-term (current) use of other medications Former smoker Personal history of tobacco use, presenting hazards to health Personal history of DVT (deep vein thrombosis) Personal history of venous thrombosis and embolism Pulmonary fibrosis (HCC) Postinflammatory pulmonary fibrosis Benign hypertension Essential hypertension, benign Hypercholesterolemia Pure hypercholesterolemia Gastroesophageal reflux disease, unspecified whether esophagitis present History of SCC (squamous cell carcinoma) of skin Personal history of other malignant neoplasm of skin History of basal cell carcinoma (BCC) 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 documented in this encounter [place] note* Diagnosis Pre-op evaluation- Primary Preoperative examination, unspecified Prediabetes Other abnormal glucose Medical marijuana use Encounter for long-term (current) use of other medications Former smoker Personal history of tobacco use, presenting hazards to health Personal history of DVT (deep vein thrombosis) Personal history of venous thrombosis and embolism Pulmonary fibrosis (HCC) Postinflammatory pulmonary fibrosis Benign hypertension Essential hypertension, benign Hypercholesterolemia Pure hypercholesterolemia Gastroesophageal reflux disease, unspecified whether esophagitis present History of SCC (squamous cell carcinoma) of skin Personal history of other malignant neoplasm of skin History of basal cell carcinoma (BCC) Urothelial cancer (HCC)- Primary Malignant neoplasm of other specified sites of urinary organs [facility]* Diagnosis Benign hypertension- Primary Essential hypertension, benign Spondylosis of thoracic region without myelopathy or radiculopathy Irritable bowel syndrome with diarrhea Irritable bowel syndrome PVC (premature ventricular contraction) Other premature beats Chronic sinusitis, unspecified location BPH associated with nocturia Spinal stenosis of lumbar region with radiculopathy Benign hypertension- Primary Essential hypertension, benign Spinal stenosis of lumbar region with radiculopathy Chronic rhinosinusitis Unspecified sinusitis (chronic) PVC (premature ventricular contraction) Other premature beats Vitamin D deficiency Dyslipidemia Other and unspecified hyperlipidemia Prediabetes Other abnormal glucose Encounter for long-term (current) use of medications Encounter for long-term (current) use of other medications Screening PSA (prostate specific antigen) Special screening for malignant neoplasm of prostate Obesity (BMI 30-39.9) Colon cancer screening Special screening for malignant neoplasms, colon Pulmonary fibrosis, unspecified (HCC) Atherosclerosis of renal artery Pulmonary fibrosis (HCC) Postinflammatory pulmonary fibrosis Renal artery stenosis Atherosclerosis of renal artery Benign hypertension- Primary Essential hypertension, benign Bilateral primary osteoarthritis of hip Spinal stenosis of lumbar region with radiculopathy PVC (premature ventricular contraction) Other premature beats Gross hematuria- Primary Prediabetes Other abnormal glucose Encounter for preoperative assessment- Primary Bladder tumor Neoplasm of unspecified nature of bladder Mohs defect of mormon region- Primary 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 [facility] Diagnosis Pre-op evaluation- Primary Preoperative examination, unspecified Prediabetes Other abnormal glucose Medical marijuana use Encounter for long-term (current) use of other medications Former smoker Personal history of tobacco use, presenting hazards to health Personal history of DVT (deep vein thrombosis) Personal history of venous thrombosis and embolism Pulmonary fibrosis (HCC) Postinflammatory pulmonary fibrosis Benign hypertension Essential hypertension, benign Hypercholesterolemia Pure hypercholesterolemia Gastroesophageal reflux disease, unspecified whether esophagitis present History of SCC (squamous cell carcinoma) of skin Personal history of other malignant neoplasm of skin History of basal cell carcinoma (BCC) Urothelial cancer (HCC)- Primary Malignant neoplasm of other specified sites of urinary organs 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) documented [facility]* Diagnosis Benign hypertension- Primary Essential hypertension, benign Spondylosis of thoracic region without myelopathy or radiculopathy Irritable bowel syndrome with diarrhea Irritable bowel syndrome PVC (premature ventricular contraction) Other premature beats Chronic sinusitis, unspecified location BPH associated with nocturia Spinal stenosis of lumbar region with radiculopathy Benign hypertension- Primary Essential hypertension, benign Spinal stenosis of lumbar region with radiculopathy Chronic rhinosinusitis Unspecified sinusitis (chronic) PVC (premature ventricular contraction) Other premature beats Vitamin D deficiency Dyslipidemia Other and unspecified hyperlipidemia Prediabetes Other abnormal glucose Encounter for long-term (current) use of medications Encounter for long-term (current) use of other medications Screening PSA (prostate specific antigen) Special screening for malignant neoplasm of prostate Obesity (BMI 30-39.9) Colon cancer screening Special screening for malignant neoplasms, colon Pulmonary fibrosis, unspecified (HCC) Atherosclerosis of renal artery Pulmonary fibrosis (HCC) Postinflammatory pulmonary fibrosis Renal artery stenosis Atherosclerosis of renal artery Benign hypertension- Primary Essential hypertension, benign Bilateral primary osteoarthritis of hip Spinal stenosis of lumbar region with radiculopathy PVC (premature ventricular contraction) Other premature beats Gross hematuria- Primary Prediabetes Other abnormal glucose Encounter for preoperative assessment- Primary Bladder tumor Neoplasm of unspecified nature of bladder Medicare annual wellness visit, subsequent- Primary 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) Venous insufficiency Unspecified venous (peripheral) insufficiency [facility]* Diagnosis Pre-op evaluation- Primary Preoperative examination, unspecified Prediabetes Other abnormal glucose Medical marijuana use Encounter for long-term (current) use of other medications Former smoker Personal history of tobacco use, presenting hazards to health Personal history of DVT (deep vein thrombosis) Personal history of venous thrombosis and embolism Pulmonary fibrosis (HCC) Postinflammatory pulmonary fibrosis Benign hypertension Essential hypertension, benign Hypercholesterolemia Pure hypercholesterolemia Gastroesophageal reflux disease, unspecified whether esophagitis present History of SCC (squamous cell carcinoma) of skin Personal history of other malignant neoplasm of skin History of basal cell carcinoma (BCC) 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 [facility]* Diagnosis Pre-op evaluation- Primary Preoperative examination, unspecified Prediabetes Other abnormal glucose Medical marijuana use Encounter for long-term (current) use of other medications Former smoker Personal history of tobacco use, presenting hazards to health Personal history of DVT (deep vein thrombosis) Personal history of venous thrombosis and embolism Pulmonary fibrosis (HCC) Postinflammatory pulmonary fibrosis Benign hypertension Essential hypertension, benign Hypercholesterolemia Pure hypercholesterolemia Gastroesophageal reflux disease, unspecified whether esophagitis present History of SCC (squamous cell carcinoma) of skin Personal history of other malignant neoplasm of skin History of basal cell carcinoma (BCC) 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 documented [facility] this [facility]* Diagnosis Pre-op evaluation- Primary Preoperative examination, unspecified Prediabetes Other abnormal glucose Medical marijuana use Encounter for long-term (current) use of other medications Former smoker Personal history of tobacco use, presenting hazards to health Personal history of DVT (deep vein thrombosis) Personal history of venous thrombosis and embolism Pulmonary fibrosis (HCC) Postinflammatory pulmonary fibrosis Benign hypertension Essential hypertension, benign Hypercholesterolemia Pure hypercholesterolemia Gastroesophageal reflux disease, unspecified whether esophagitis present History of SCC (squamous cell carcinoma) of skin Personal history of other malignant neoplasm of skin History of basal cell carcinoma (BCC) 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 Encounter for antineoplastic chemotherapy 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 Long-term (current) use of 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 documented [facility] this [facility]* Diagnosis Pre-op evaluation- Primary Preoperative examination, unspecified Prediabetes Other abnormal glucose Medical marijuana use Encounter for long-term (current) use of other medications Former smoker Personal history of tobacco use, presenting hazards to health Personal history of DVT (deep vein thrombosis) Personal history of venous thrombosis and embolism Pulmonary fibrosis (HCC) Postinflammatory pulmonary fibrosis Benign hypertension Essential hypertension, benign Hypercholesterolemia Pure hypercholesterolemia Gastroesophageal reflux disease, unspecified whether esophagitis present History of SCC (squamous cell carcinoma) of skin Personal history of other malignant neoplasm of skin History of basal cell carcinoma (BCC) 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 documented [facility]* Diagnosis Pre-op evaluation- Primary Preoperative examination, unspecified Prediabetes Other abnormal glucose Medical marijuana use Encounter for long-term (current) use of other medications Former smoker Personal history of tobacco use, presenting hazards to health Personal history of DVT (deep vein thrombosis) Personal history of venous thrombosis and embolism Pulmonary fibrosis (HCC) Postinflammatory pulmonary fibrosis Benign hypertension Essential hypertension, benign Hypercholesterolemia Pure hypercholesterolemia Gastroesophageal reflux disease, unspecified whether esophagitis present History of SCC (squamous cell carcinoma) of skin Personal history of other malignant neoplasm of skin History of basal cell carcinoma (BCC) Urothelial cancer (HCC)- Primary Malignant neoplasm of other specified sites of urinary organs documented [facility] this [facility]* Diagnosis Pre-op evaluation- Primary Preoperative examination, unspecified Prediabetes Other abnormal glucose Medical marijuana use Encounter for long-term (current) use of other medications Former smoker Personal history of tobacco use, presenting hazards to health Personal history of DVT (deep vein thrombosis) Personal history of venous thrombosis and embolism Pulmonary fibrosis (HCC) Postinflammatory pulmonary fibrosis Benign hypertension Essential hypertension, benign Hypercholesterolemia Pure hypercholesterolemia Gastroesophageal reflux disease, unspecified whether esophagitis present History of SCC (squamous cell carcinoma) of skin Personal history of other malignant neoplasm of skin History of basal cell carcinoma (BCC) 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 documented in this encounter [place] note* Diagnosis Pre-op evaluation- Primary Preoperative examination, unspecified Prediabetes Other abnormal glucose Medical marijuana use Encounter for long-term (current) use of other medications Former smoker Personal history of tobacco use, presenting hazards to health Personal history of DVT (deep vein thrombosis) Personal history of venous thrombosis and embolism Pulmonary fibrosis (HCC) Postinflammatory pulmonary fibrosis Benign hypertension Essential hypertension, benign Hypercholesterolemia Pure hypercholesterolemia Gastroesophageal reflux disease, unspecified whether esophagitis present History of SCC (squamous cell carcinoma) of skin Personal history of other malignant neoplasm of skin History of basal cell carcinoma (BCC) 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 documented in this encounter [place] note* Diagnosis Pre-op evaluation- Primary Preoperative examination, unspecified Prediabetes Other abnormal glucose Medical marijuana use Encounter for long-term (current) use of other medications Former smoker Personal history of tobacco use, presenting hazards to health Personal history of DVT (deep vein thrombosis) Personal history of venous thrombosis and embolism Pulmonary fibrosis (HCC) Postinflammatory pulmonary fibrosis Benign hypertension Essential hypertension, benign Hypercholesterolemia Pure hypercholesterolemia Gastroesophageal reflux disease, unspecified whether esophagitis present History of SCC (squamous cell carcinoma) of skin Personal history of other malignant neoplasm of skin History of basal cell carcinoma (BCC) 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 Encounter for antineoplastic chemotherapy Chem[facility]-induced [facility] Pre-op evaluation- Primary Preoperative examination, unspecified Prediabetes Other abnormal glucose Medical marijuana use Encounter for long-term (current) use of other medications Former smoker Personal history of tobacco use, presenting hazards to health Personal history of DVT (deep vein thrombosis) Personal history of venous thrombosis and embolism Pulmonary fibrosis (HCC) Postinflammatory pulmonary fibrosis Benign hypertension Essential hypertension, benign Hypercholesterolemia Pure hypercholesterolemia Gastroesophageal reflux disease, unspecified whether esophagitis present History of SCC (squamous cell carcinoma) of skin Personal history of other malignant neoplasm of skin History of basal cell carcinoma (BCC) 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 [facility] Diagnosis Pre-op evaluation- Primary Preoperative examination, unspecified Prediabetes Other abnormal glucose Medical marijuana use Encounter for long-term (current) use of other medications Former smoker Personal history of tobacco use, presenting hazards to health Personal history of DVT (deep vein thrombosis) Personal history of venous thrombosis and embolism Pulmonary fibrosis (HCC) Postinflammatory pulmonary fibrosis Benign hypertension Essential hypertension, benign Hypercholesterolemia Pure hypercholesterolemia Gastroesophageal reflux disease, unspecified whether esophagitis present History of SCC (squamous cell carcinoma) of skin Personal history of other malignant neoplasm of skin History of basal cell carcinoma (BCC) 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 [facility] Diagnosis Pre-op evaluation- Primary Preoperative examination, unspecified Prediabetes Other abnormal glucose Medical marijuana use Encounter for long-term (current) use of other medications Former smoker Personal history of tobacco use, presenting hazards to health Personal history of DVT (deep vein thrombosis) Personal history of venous thrombosis and embolism Pulmonary fibrosis (HCC) Postinflammatory pulmonary fibrosis Benign hypertension Essential hypertension, benign Hypercholesterolemia Pure hypercholesterolemia Gastroesophageal reflux disease, unspecified whether esophagitis present History of SCC (squamous cell carcinoma) of skin Personal history of other malignant neoplasm of skin History of basal cell carcinoma (BCC) 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 [facility] Diagnosis Pre-op evaluation- Primary Preoperative examination, unspecified Prediabetes Other abnormal glucose Medical marijuana use Encounter for long-term (current) use of other medications Former smoker Personal history of tobacco use, presenting hazards to health Personal history of DVT (deep vein thrombosis) Personal history of venous thrombosis and embolism Pulmonary fibrosis (HCC) Postinflammatory pulmonary fibrosis Benign hypertension Essential hypertension, benign Hypercholesterolemia Pure hypercholesterolemia Gastroesophageal reflux disease, unspecified whether esophagitis present History of SCC (squamous cell carcinoma) of skin Personal history of other malignant neoplasm of skin History of basal cell carcinoma (BCC) 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 documented in this encounter [place] note* Diagnosis Pre-op evaluation- Primary Preoperative examination, unspecified Prediabetes Other abnormal glucose Medical marijuana use Encounter for long-term (current) use of other medications Former smoker Personal history of tobacco use, presenting hazards to health Personal history of DVT (deep vein thrombosis) Personal history of venous thrombosis and embolism Pulmonary fibrosis (HCC) Postinflammatory pulmonary fibrosis Benign hypertension Essential hypertension, benign Hypercholesterolemia Pure hypercholesterolemia Gastroesophageal reflux disease, unspecified whether esophagitis present History of SCC (squamous cell carcinoma) of skin Personal history of other malignant neoplasm of skin History of basal cell carcinoma (BCC) 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 Dysuria documented in this encounter [place] note* Diagnosis Pre-op evaluation- Primary Preoperative examination, unspecified Prediabetes Other abnormal glucose Medical marijuana use Encounter for long-term (current) use of other medications Former smoker Personal history of tobacco use, presenting hazards to health Personal history of DVT (deep vein thrombosis) Personal history of venous thrombosis and embolism Pulmonary fibrosis (HCC) Postinflammatory pulmonary fibrosis Benign hypertension Essential hypertension, benign Hypercholesterolemia Pure hypercholesterolemia Gastroesophageal reflux disease, unspecified whether esophagitis present History of SCC (squamous cell carcinoma) of skin Personal history of other malignant neoplasm of skin History of basal cell carcinoma (BCC) Urinary tract infection without hematuria, site unspecified- Primary documented in this encounter [place] note* Diagnosis Pre-op evaluation- Primary Preoperative examination, unspecified Prediabetes Other abnormal glucose Medical marijuana use Encounter for long-term (current) use of other medications Former smoker Personal history of tobacco use, presenting hazards to health Personal history of DVT (deep vein thrombosis) Personal history of venous thrombosis and embolism Pulmonary fibrosis (HCC) Postinflammatory pulmonary fibrosis Benign hypertension Essential hypertension, benign Hypercholesterolemia Pure hypercholesterolemia Gastroesophageal reflux disease, unspecified whether esophagitis present History of SCC (squamous cell carcinoma) of skin Personal history of other malignant neoplasm of skin History of basal cell carcinoma (BCC) 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 [facility] Diagnosis Pre-op evaluation- Primary Preoperative examination, unspecified Prediabetes Other abnormal glucose Medical marijuana use Encounter for long-term (current) use of other medications Former smoker Personal history of tobacco use, presenting hazards to health Personal history of DVT (deep vein thrombosis) Personal history of venous thrombosis and embolism Pulmonary fibrosis (HCC) Postinflammatory pulmonary fibrosis Benign hypertension Essential hypertension, benign Hypercholesterolemia Pure hypercholesterolemia Gastroesophageal reflux disease, unspecified whether esophagitis present History of SCC (squamous cell carcinoma) of skin Personal history of other malignant neoplasm of skin History of basal cell carcinoma (BCC) 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 [facility] Diagnosis Pre-op evaluation- Primary Preoperative examination, unspecified Prediabetes Other abnormal glucose Medical marijuana use Encounter for long-term (current) use of other medications Former smoker Personal history of tobacco use, presenting hazards to health Personal history of DVT (deep vein thrombosis) Personal history of venous thrombosis and embolism Pulmonary fibrosis (HCC) Postinflammatory pulmonary fibrosis Benign hypertension Essential hypertension, benign Hypercholesterolemia Pure hypercholesterolemia Gastroesophageal reflux disease, unspecified whether esophagitis present History of SCC (squamous cell carcinoma) of skin Personal history of other malignant neoplasm of skin History of basal cell carcinoma (BCC) 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 documented in this encounter [place] note* Diagnosis Pre-op evaluation- Primary Preoperative examination, unspecified Prediabetes Other abnormal glucose Medical marijuana use Encounter for long-term (current) use of other medications Former smoker Personal history of tobacco use, presenting hazards to health Personal history of DVT (deep vein thrombosis) Personal history of venous thrombosis and embolism Pulmonary fibrosis (HCC) Postinflammatory pulmonary fibrosis Benign hypertension Essential hypertension, benign Hypercholesterolemia Pure hypercholesterolemia Gastroesophageal reflux disease, unspecified whether esophagitis present History of SCC (squamous cell carcinoma) of skin Personal history of other malignant neoplasm of skin History of basal cell carcinoma (BCC) 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 documented in this encounter [place] note* Diagnosis Pre-op evaluation- Primary Preoperative examination, unspecified Prediabetes Other abnormal glucose Medical marijuana use Encounter for long-term (current) use of other medications Former smoker Personal history of tobacco use, presenting hazards to health Personal history of DVT (deep vein thrombosis) Personal history of venous thrombosis and embolism Pulmonary fibrosis (HCC) Postinflammatory pulmonary fibrosis Benign hypertension Essential hypertension, benign Hypercholesterolemia Pure hypercholesterolemia Gastroesophageal reflux disease, unspecified whether esophagitis present History of SCC (squamous cell carcinoma) of skin Personal history of other malignant neoplasm of skin History of basal cell carcinoma (BCC) Urinary tract infection without hematuria, site unspecified- Primary 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) Dysuria Chemotherapy-induced fatigue Malignant neoplasm of urinary bladder, unspecified site (HCC) Urinary frequency Radiation cystitis Irradiation cystitis documented in this encounter [facility]* Diagnosis Pre-op evaluation- Primary Preoperative examination, unspecified Prediabetes Other abnormal glucose Medical marijuana use Encounter for long-term (current) use of other medications Former smoker Personal history of tobacco use, presenting hazards to health Personal history of DVT (deep vein thrombosis) Personal history of venous thrombosis and embolism Pulmonary fibrosis (HCC) Postinflammatory pulmonary fibrosis Benign hypertension Essential hypertension, benign Hypercholesterolemia Pure hypercholesterolemia Gastroesophageal reflux disease, unspecified whether esophagitis present History of SCC (squamous cell carcinoma) of skin Personal history of other malignant neoplasm of skin History of basal cell carcinoma (BCC) OPENED IN ERROR- Primary To allow closing an encounter opened in error (used in SmartSet) documented in this encounter [facility]* Diagnosis Pre-op evaluation- Primary Preoperative examination, unspecified Prediabetes Other abnormal glucose Medical marijuana use Encounter for long-term (current) use of other medications Former smoker Personal history of tobacco use, presenting hazards to health Personal history of DVT (deep vein thrombosis) Personal history of venous thrombosis and embolism Pulmonary fibrosis (HCC) Postinflammatory pulmonary fibrosis Benign hypertension Essential hypertension, benign Hypercholesterolemia Pure hypercholesterolemia Gastroesophageal reflux disease, unspecified whether esophagitis present History of SCC (squamous cell carcinoma) of skin Personal history of other malignant neoplasm of skin History of basal cell carcinoma (BCC) 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 documented in this encounter [place] note* Diagnosis Pre-op evaluation- Primary Preoperative examination, unspecified Prediabetes Other abnormal glucose Medical marijuana use Encounter for long-term (current) use of other medications Former smoker Personal history of tobacco use, presenting hazards to health Personal history of DVT (deep vein thrombosis) Personal history of venous thrombosis and embolism Pulmonary fibrosis (HCC) Postinflammatory pulmonary fibrosis Benign hypertension Essential hypertension, benign Hypercholesterolemia Pure hypercholesterolemia Gastroesophageal reflux disease, unspecified whether esophagitis present History of SCC (squamous cell carcinoma) of skin Personal history of other malignant neoplasm of skin History of basal cell carcinoma (BCC) Dysuria- Primary [facility]* Diagnosis Pre-op evaluation- Primary Preoperative examination, unspecified Prediabetes Other abnormal glucose Medical marijuana use Encounter for long-term (current) use of other medications Former smoker Personal history of tobacco use, presenting hazards to health Personal history of DVT (deep vein thrombosis) Personal history of venous thrombosis and embolism Pulmonary fibrosis (HCC) Postinflammatory pulmonary fibrosis Benign hypertension Essential hypertension, benign Hypercholesterolemia Pure hypercholesterolemia Gastroesophageal reflux disease, unspecified whether esophagitis present History of SCC (squamous cell carcinoma) of skin Personal history of other malignant neoplasm of skin History of basal cell carcinoma (BCC) 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 documented in this encounter [place] note* Diagnosis Pre-op evaluation- Primary Preoperative examination, unspecified Prediabetes Other abnormal glucose Medical marijuana use Encounter for long-term (current) use of other medications Former smoker Personal history of tobacco use, presenting hazards to health Personal history of DVT (deep vein thrombosis) Personal history of venous thrombosis and embolism Pulmonary fibrosis (HCC) Postinflammatory pulmonary fibrosis Benign hypertension Essential hypertension, benign Hypercholesterolemia Pure hypercholesterolemia Gastroesophageal reflux disease, unspecified whether esophagitis present History of SCC (squamous cell carcinoma) of skin Personal history of other malignant neoplasm of skin History of basal cell carcinoma (BCC) 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 documented in this encounter [place] note* Diagnosis Onset Date Resolution Status Admit Date Benign hypertension acutept2024 8:09amBilateral primary osteoarthritis of hipacute December 07, 2024 8:09amClass 1 obesity due to excess calories with serious comorbidity and body maacuteDecember 07, 2024 8:09amDyslipidemiaacute December 07, 2024 8:09amEncounter for long-term (current) use of medications acutept2024 8:09amLumbar stenosis without neurogenic claudication acuteSept2024 8:09amPrediabetesacutept2024 8:09amPVC (premature ventricular contraction)acutept2024 8:09amTinea cruris acuteSeptember 2024 8:09am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acuteSeptember 2024 8:09amVenous insufficiencyacuteSeptember 2024 8:09am [facility] Work Phone: Evaluation note* Diagnosis Benign hypertension- Primary Essential hypertension, benign Spondylosis of thoracic region without myelopathy or radiculopathy Irritable bowel syndrome with diarrhea Irritable bowel syndrome PVC (premature ventricular contraction) Other premature beats Chronic sinusitis, unspecified location BPH associated with nocturia Spinal stenosis of lumbar region with radiculopathy Benign hypertension- Primary Essential hypertension, benign Spinal stenosis of lumbar region with radiculopathy Chronic rhinosinusitis Unspecified sinusitis (chronic) PVC (premature ventricular contraction) Other premature beats Vitamin D deficiency Dyslipidemia Other and unspecified hyperlipidemia Prediabetes Other abnormal glucose Encounter for long-term (current) use of medications Encounter for long-term (current) use of other medications Screening PSA (prostate specific antigen) Special screening for malignant neoplasm of prostate Obesity (BMI 30-39.9) Colon cancer screening Special screening for malignant neoplasms, colon Pulmonary fibrosis, unspecified (HCC) Atherosclerosis of renal artery Pulmonary fibrosis (HCC) Postinflammatory pulmonary fibrosis Renal artery stenosis Atherosclerosis of renal artery Benign hypertension- Primary Essential hypertension, benign Bilateral primary osteoarthritis of hip Spinal stenosis of lumbar region with radiculopathy PVC (premature ventricular contraction) Other premature beats Gross hematuria- Primary Prediabetes Other abnormal glucose Encounter for preoperative assessment- Primary Bladder tumor Neoplasm of unspecified nature of bladder Medicare annual wellness visit, subsequent- Primary 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) Venous insufficiency Unspecified venous (peripheral) insufficiency Seborrheic keratosis- Primary History of basal cell carcinoma Personal history of other malignant neoplasm of skin History of SCC (squamous cell carcinoma) of skin Personal history of other malignant neoplasm of skin Lentigines Seborrheic keratosis, inflamed documented in this encounter [facility] Discharge instructions No data available for this section [facility] Discharge instructions Additional Instructions No exertional activity Apply antibiotic ointment to the wound 3 times per day May shower in 2 days, blot the wound dry and apply ointment Pain medication if needed Apply ice to the wound for pain and swelling, 20-minute intervals Call the office for any questions or concerns Follow-up in the office as scheduled [facility] Work Phone: Progress note No data available for this section [facility] reason for referral (narrative)No reason for referral information availableToledo Hospital Work Phone: Reason for visit Narrative* MRI/CT (Routine) - Closed SpecialtyDiagnoses / ProceduresReferred By ContactReferred To ContactMR IMAGING Diagnoses Malignant neoplasm of urinary bladder, unspecified site (HCC) Procedures MRI PELVIS BLADDER WO IVCON MRI PELVIS W/O CONTRAST MATERIAL Martha Peters MD [address] [place] [address] Phone: tel: fax: [facility] [place] [address] Referral IDStatusReasonStshelby DateExpiration DateVisits RequestedVisits [id number] Auto-Generated Referral / [facility] for visit Narrative* MRI/CT (Urgent) - ClosedSpecialty Diagnoses / ProceduresReferred By ContactReferred To ContactCT IMAGING Diagnoses 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) Procedures CT CHEST W IVCON DIAGNOSTIC COMPUTED TOMOGRAPHY THORAX W/[place] [address] [place] [address] Phone: tel: fax: [facility] [place] [address] Referral IDStatusReasonStshelby DateExpiration DateVisits RequestedVisits [id number] Auto-Generated Referral [facility] for visit Narrative* [place] Prior Authorization (Routine) - AuthorizedSpecialtyDiagnoses / ProceduresReferred By ContactReferred To Contact Diagnoses 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) Arianne Stockton MD [address] [place] [address] [place] [address] Phone: tel: fax: Arianne Stockton MD [address] [place] [address] [place] [address] Phone: tel: fax: Referral IDStatChandra DateExpiration DateVisits RequestedVisits [id number] [facility] Summary Purpose Family History No Family History Records Found Relationship Condition Age at Onset Recorded Date/T ivan mother Type 2 diabetes mellitus Unknown fatherChronic obstructive pulmonary diseaseUnknownMalignant neoplasm of lung UnknownMalignant neoplasm of testicleUnknownCerebrovascular accident (CVA) UnknownbrotherCerebrovascular accident (CVA)UnknownType 2 diabetes mellitus Unknown Advance Directives No Advanced Directives Records Found Advance Directive Response Recorded Date/ Time Advance Directives No June 16 4:32pm Advance Directive Response Recorded Date/ Time Advance Directives No June 16 3:32pm Chief Complaint and Reason for Visit Chief Complaint [place] HIP PAIN NX M25.551 - Pain in right hip M48.00Reason for VisitBilateral primary osteoarthritis of hip Spinal stenosis Chief Complaint [place] HIP PAIN NX M25.551 - Pain in right hip M48.00 M54.50Reason for VisitBilateral primary osteoarthritis of hip Spinal stenosis Chief Complaint Admit Date Unknown March 19, 2024 12 :40pm Chief Complaint Admit Date Unknown March 19, 2024 12 :40pm Left Anabaptist Wound May 13, 2024 7:19am Chief Complaint Admit Date Unknown March 19, 2024 12 :40pm Left Anabaptist Wound May 13, 2024 7:19am Left Anabaptist Wound May 18, 2024 2:26 pm Chief Complaint Admit Date Unknown March 19, 2024 12 :40pm Left Anabaptist Wound May 13, 2024 7:19am Left Anabaptist Wound May 18, 2024 2:26 pm Unknown June 02, 2024 12: 27pm Chief Complaint Admit Date Established Patient December 07, 2024 8:09am Reason for Visit Admit Date Benign hypertension December 07, 2024 8:09am Bilateral primary osteoarthritis of hip December 07, 2024 8:09am Class 1 obesity due to exces s calories with serious comorbidity and body ma December 07, 2024 8:09am Dyslipidemia December 07, 2024 8:09am Encounter for long-term (current) use of medications December 07, 2024 8:09am Lumbar stenosis without neurogenic donna ication December 07, 2024 8:09am Prediabetes December 07, 2024 8:09am PVC (premature ventricular contraction) December 07, 2024 8:09am Tinea cruris December 07, 2024 8:09am 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 December 07, 2024 8:09am Venous insufficiency December 07 8:09am Reason for Referral SpecialtyDiagnoses / ProceduresReferred By ContactReferred To Contact Diagnoses Preop examination Procedures ECG 12 lead Kely Garza MD [address] [place] [address] Referral IDStatusReasonStart DateExpiration DateVisits RequestedVisits [id number] Review Additional Source Comments (unrecognized sect ion and content) No Status Records FoundNo Status Records FoundNo Status Records FoundNo Status Records FoundNo Status Records FoundNo Status Records FoundNo Status Records Found INFORMATION SOURCE (unrecogn ized section and content) DATE CREATED AUTHOR 07/24/2022 [facility] DATE CREATED AUTHOR AUTHOR'S ORGANIZ ATION 10/22/2023 [facility] DATE CREATED AUTHOR AUTHOR'S ORGANIZ ATION 04/12/2024 [facility] DATE CREATED AUTHOR AUTHOR'S ORGANIZ ATION 06/07/2024 [facility] DATE CREATED AUTHOR AUTHOR'S ORGANIZ ATION 06/21/2024 [facility] DATE CREATED AUTHOR AUTHOR'S ORGANIZ ATION 01/14/2025 [facility] DATE CREATED AUTHOR AUTHOR'S ORGANIZ ATION 01/25/[address] [facility] Care Teams (unrecognized sec tion and content) Team Status: Active Member Role Status Dates Dayron Cervantes MD Primary Care Provider Active Team Status: Inactive Member Role Status Dates Stanley Gregory II, MD Attending Provider Active Start: July 15, 2023 End: July 15, 2023[facility] Care ProviderActiveStart: July 15, 2023 End: July 15, 2023 Team Status: Inactive Member Role Status Dates Dayron Cervantes MD Primary Care Provider Active S tart: July 15, 2023 End: July 14sarath Gregory II, MDAttending ProviderActiveStart: July 15, 2023 End: July 15, 2023 Team Status: Inactive Member Role Status Dates Dayron Cervantes MD Primary Care Provider Active S tart: July 23, 2023 End: July 22sarath Gregory II, MDAttending ProviderActiveStart: July 23, 2023 End: July 23, 2023 Team Status: Inactive Member Role Status Dates Dayron Cervantes MD Primary Care Provider Active S tart: September 18, 2023 End: September 17ale Paul Quiles , MDAttending ProviderActiveStart: September 18, 2023 End: September 18, 2023Team MemberRelationshipSpecialtyStart DateEnd Date Dayron Cervantes MD [address] [place] [address] PCP - [facility] Medicine09/04/23Team MemberRelationshipSpecialtyStart DateEnd Date Dayron Cervantes MD [address] [place] [address] [facility] - [facility]09/04/23Team MemberRelationshipSpecialtyStart DateEnd Date Dayron Cervantes MD [address] [place] [address] PCP - [facility]09/04/23Team MemberRelationshipSpecialtyStart DateEnd Date Dayron Cervantes MD [address] [place] [address] PCP - GeneralFamily Medicine09/04/23Team MemberRelationshipSpecialtyStart DateEnd Date Dayron Cervantes MD [address] [place] [address] PCP - GeneralFamily Medicine09/04/23Team MemberRelationshipSpecialtyStart DateEnd Date Dayron Cervantes MD [address] [place] [address] PCP - GeneralFamily Medicine09/04/23Team MemberRelationshipSpecialtyStart DateEnd Date Dayron Cervantes MD [address] [place] [address] PCP - GeneralFamily Medicine09/04/23Team MemberRelationshipSpecialtyStart DateEnd Date Dayron Cervantes MD [address] [place] [address] PCP - GeneralFamily Medicine09/04/23Team MemberRelationshipSpecialtyStart DateEnd Date Dayron Cervantes MD [address] [place] [address] PCP - GeneralFamily Medicine09/04/23Team MemberRelationshipSpecialtyStart DateEnd Date Dayorn Cervantes MD [address] [place] [address] PCP - GeneralFamily Medicine09/04/23Team MemberRelationshipSpecialtyStart DateEnd Date Dayron Cervantes MD [address] [place] [address] PCP - Generalmily Medicine09/04/23 Team Status: Inactive Member Role Status Dates Dayron Cervantes MD Primary Care Provider Active S tart: March 19, 2024 End: March 19, 2024Kevan Berrios , DOAttending ProviderActiveStart: March 19, 2024 End: March 19, 2024Team MemberRelationshipSpecialtyStart DateEnd Date Dayron Cervantes MD [address] [place] [address] PCP - [facility]09/04/23Team MemberRelationshipSpecialtyStart DateEnd Date Dayron Cervantes MD [address] [place] [address] PCP - Generalm[facility] Medicine09/04/23Team MemberRelationshipSpecialtyStart DateEnd Date Dayron Cervantes MD [address] [place] [address] PCP - GeneralFamily Medicine09/04/23Team MemberRelationshipSpecialtyStart DateEnd Date Dayron Cervantes MD [address] [facility] [place] [address] PCP - GeneralFamily Medicine09/29/23Team MemberRelationshipSpecialtyStart DateEnd Date Dayron Cervantes MD [address] [place] [address] PCP - GeneralFamily Medicine09/04/23 Dayron Cervantes MD [address] [place] [address] [place] [address]Te MemberRelationshipSpecialtyStart DateEnd Date Dayron Cervantes MD [address] [place] [address] [facility]09/04/23 Dayron Cervantes MD [address] [place] [address] [facility]04/22/24 Arjun Chung MD [address] [place], [place] [address] Referring PhysicianDermatology2 Dat [place] DO [address] [place] [address] Otolaryngology2Team MemberRelationshipSpecialtyStart DateEnd Date Dayron Cervantes MD [address] [place] [address] [facility]09/04/23 Dayron Cervantes MD [address] [place] [address] [place] [address] Arjun Chung MD [address] [place], [place] [address] Referring PhysicianDermatology2 Dat France DO [address] [place] [address] Otolaryngolog05/12/24Team MemberRelationshipSpecialtyStart DateEnd Date Dayron Cervantes MD [address] [place] [address] PCP - [facility]09/04/23 Dayron Cervantes MD [address] [place] [address] PCP - O [facility]04/22/24 Arjun Chung MD [address] [facility] [place] [address] Referring PhysicianDermatology2 Dat France DO [address] [place] [address] Otolaryngolog05/12/24 Team Status: Inactive Member Role Status Dates Dayron Cervantes MD Primary Care Provider Active S tart: May 13, 2024 End: May 13, 2024PaNay Constantino ProviderActiveStart: May 13, 2024 End: May 13, 2024 Team Status: Inactive Member Role Status Dates Dayron Cervantes MD Primary Care Provider Active S tart: May 18, 2024 End: May 18, 2024PaNay Cnostantino ProviderActiveStart: May 18, 2024 End: May 18, 2024Team MemberRelationshipSpecialtyStart DateEnd Date Dayron Cervantes MD [address] [place] [address] PCP - GeneralFamily Medicine09/04/23 Dayron Cervantes MD [address] [place] [address] PCP - [facility] Arjun Chung MD [address] [place] [address] Referring PhysicianDermatology2 Dat [place] DO [address] [place] [address] Otolaryngology2 Team Status: Inactive Member Role Status Dates Micaela Ireland MD Attending Provider Active St art: June 02, 2024 End: June 02, 2024Team MemberRelationshipSpecialtyStart DateEnd Date Dayron Cervantes MD [address] [place] [address] P[facility] - [facility]/04/23 Dayron Cervantes MD [address] [place] [address] PCP - [facility] Arjun Chung MD [address] [place] [address] Referring PhysicianDermatology2 Dat France DO [address] [place] [address] Otolaryngology2//25Team MemberRelationshipSpecialtyStart DateEnd Date Dayron Cervantes MD [address] [place] [address] PCP - [facility]09/04/23 Dayron Cervantes MD [address] [place] [address] [facility] Arjun Chung MD [address] [place] [address] Referring PhysicianDernorth shore university hospitallogy2 Dat France DO [address] [place] [address] Otolaryngology2Team MemberRelationshipSpecialtyStart DateEnd Date Dayron Cervantes MD [address] [place] [address] PCP - [facility] Medicine09/04/23 Dayron Cervantes MD [address] [place] [address] PCP - [facility]04/22/24 Arjun Chung MD [address] [place], [place] [address] Referring PhysicianDernorth shore university hospitallogy2 Dat France DO [address] [place] [address] Otolaryngology2Team MemberRelationshipSpecialtyStart DateEnd Date Dayron Cervantes MD [address] [place] [address] PCP - [facility] Medicine09/04/23 Dayron Cervantes MD [address] [place] [address] [facility] - [facility]04/22/24 Arjun Chung MD [address] [place] [address] Referring PhysicianDernorth shore university hospitallogy2 Dat France DO [address] [place] [address] Otolaryngology2Team MemberRelationshipSpecialtyStart DateEnd Date Dayron Cervantes MD [address] [place] [address] PCP - [facility]09/04/23 Dayron Cervantes MD [address] [place] [address] PCP - [facility]04/22/24 Arjun Chung MD [address] [place] [address] Referring PhysicianDernorth shore university hospitallogy2 Dat France DO [address] [place] [address] Otolaryngology2Team MemberRelationshipSpecialtyStart DateEnd Date Dayron Cervantes MD [address] [place] [address] PCP - [facility] Medicine09/04/23 Dayron Cervantes MD [address] [place] [address] PCP - [facility]04/22/24 Arjun Chung MD [address] [place] [address] Referring PhysicianDermalogy2 Dat France DO [address] [address] Otolaryngology2Te MemberRelationshipSpecialtyStart DateEnd Date Dayron Cervantes MD [address] [place] [address] P[facility] - [facility]/04/23 Dayron Cervantes MD [address] [place] [address] PCP - [facility]04/22/24 Arjun Chung MD [address] [place] [address] Referring PhysicianDermalogy2 Dat France DO [address] [place] [address] Otolaryngology2Team MemberRelationshipSpecialtyStart DateEnd Date Dayron Cervantes MD [address] [place] [address] PCP - GeneralFamily Medicine07/08/24 [facility] [address] [facility] [address] [place], [place] [address] Primary Staff PhysicianCardiology06/01/18 [place] [address] [place], [place] 8[address] Specialty ConsultantHematology/Oncology07/11/24Te MemberRelationshipSpecialty Start DateEnd Date Dayron Cervantes MD [address] [place] [address] PCP - [facility] Medicine07/08/24 [facility] HospitalCharbel farrell [facility]dro[facility] [address] [place] [address] Primary Staff PhysicianCardiology06/01/18 [place] [address] [place] [address] Specialty ConsultantHematology/Oncology07/11/24Te MemberRelationshipSpecialty Start DateEnd Date Dayron Cervantes MD [address] [place] [place], [place] [address] PCP - GeneralFamily Medicine07/08/24 [facility] [address] [facility] [facility] [place] [address] Primary Staff PhysicianCardiology06/01/18 [place] [address] [place], [place] 3034[address] Specialty ConsultantHematology/Oncology07/11/24Te MemberRelationshipSpecialty Start DateEnd Date Dayron Cervantes MD [address] [place], [place] [address] PCP - [facility]07/08/24 [facility] HospitalCharbel [facility] [address] [place] [address] Primary Staff PhysicianCardiology06/01/18 [place] [address] [place] [address] Specialty ConsultantHematology/Oncology07/11/24Te MemberRelationshipSpecialty Start DateEnd Date Dayron Cervantes MD [address] [place] [address] PCP - GeneralFamily Medicine09/04/23 Dayron Cervantes MD [address] [place] [address] PCP - [facility]04/22/24 Arjun Chung MD [address] [facility] [address] [place] [address] Referring PhysicianDermatology2 Dat France DO [address] Ellen [place]ár[place] [address] Otolaryngology2Team MemberRelationshipSpecialtyStart DateEnd Date Dayron Cervantes MD [address] [place] [address] PCP - GeneralFamily Medicine07/08/24 Charbel Zuñiga [address] [place] [address] [place] [address] Primary Staff PhysicianCardiology06/01/18 [place] [address] [place] [address] Specialty ConsultantHematology/Oncology07/11/24Team MemberRelationshipSpecialty Start DateEnd Date Dayron Cervantes MD [address] [place] [address] PCP - GeneralFamily Medicine09/04/23 Dayron Cervantes MD [address] [place] [address] PCP - [facility]04/22/24 Arjun Chung MD [address] [place] [address] Referring PhysicianDermatology2 Dat France DO [address] [place] [address] Otolaryngology2Team MemberRelationshipSpecialtyStart DateEnd Date Dayron Cervantes MD [address] [place] [address] PCP - GeneralFamily Medicine07/08/24 Charbel Zuñiga [address] [place] [address] Primary Staff PhysicianCardiology06/01/18 [place] [address] [place], [place] 28[address]395 Specialty ConsultantHematology/Oncology07/11/24Team MemberRelationshipSpecialty Start DateEnd Date Dayron Cervantes MD [address] [place] [address] PCP - [facility] Medicine07/08/24 Charbel Zuñiga [address] [facility]ELISA MARTÍNEZ [facility] [place] [address] Primary Staff PhysicianCardiology06/01/18 [place] [address] [place] [address] Specialty ConsultantHematology/Oncology07/11/24Team MemberRelationshipSpecialty Start DateEnd Date Dayron Cervantes MD [address] [place] [address] PCP - GeneralFamily Medicine07/08/24 Charbel Zuñiga [address] [place] [address] Primary Staff PhysicianCardiology06/01/18 [place] [address] [place] [address] Specialty ConsultantHematology/Oncology07/11/24Team MemberRelationshipSpecialty Start DateEnd Date Dayron Cervantes MD [address] [place] [address] PCP - GeneralFamily Medicine07/08/24 Charbel Zuñiga [address] [place] [address] Primary Staff PhysicianCardiology06/01/18 [place] [address] [place] [address] Specialty ConsultantHematology/Oncology07/11/24Team MemberRelationshipSpecialty Start DateEnd Date Dayron Cervantes MD [address] [place] [address] PCP - GeneralFamily Medicine07/08/24 Charbel Zuñiga [address] [place] [address] Primary Staff PhysicianCardiology06/01/18 [place] [address] [place] [address] Specialty ConsultantHematology/Oncology07/11/24Team MemberRelationshipSpecialty Start DateEnd Date Dayron Cervantes MD [address] [place] [address] PCP - GeneralFamily Medicine07/08/24 Charbel Zuñiga [address] [facility] [place] [address] Primary Staff PhysicianCardiology06/01/18 [place] [address] [place], [place] [address] Specialty ConsultantHematology/Oncology07/11/24 Arianne Stockton MD [address] [place] [address] PhysicianHematology/Oncology08/16/24 Martha Marsh, MAHNAZ [address] [place] [address] Specialty Care CoordinatorHematology/Oncology08/16/24 Trevon Real MD [address] [place] [address] PhysicianRadiation Oncology08/16/24Team MemberRelationshipSpecialtyStart DateEnd Date Dayron Cervantes MD [address] [place] [address] PCP - GeneralFamily Medicine07/08/24 Charbel Zuñiga [address] [place] [address] Primary Staff PhysicianCardiology06/01/18 [place] [address] [place] [address] Specialty ConsultantHematology/Oncology07/11/24 Arianne Stockton MD [address] [place] [address] PhysicianHematology/Oncology08/16/24 Martha Marsh RN [address] [place], [facility] Specialty Care CoordinatorHematology/Oncology08/16/24 Trevon Real MD [address] [place] [phone] PhysicianRadiation Oncology08/16/24Team MemberRelationshipSpecialtyStart DateEnd Date Dayron Cervantes MD [address] [place] [address] PCP - GeneralFamily Medicine07/08/24 Charbel Zuñiga [address] [place], [place] [address] [address] Primary Staff PhysicianCardiology06/01/18 [place] [address] [address] [place] [phone] Specialty ConsultantHematology/Oncology07/11/24 Arianne Stockton MD [address] [place] [address] PhysicianHematology/Oncology08/16/24 Martha Marsh, MAHNAZ [address] [place] [address] Specialty Care CoordinatorHematology/Oncology08/16/24 Trevon Real MD [address] [facility] [place] [address] PhysicianRadiation Oncology08/16/24Team MemberRelationshipSpecialtyStart DateEnd Date Dayron Cervantes MD [address] [place] [address] PCP - GeneralFamily Medicine07/08/24 Charbel Zuñiga [address] [place], [place] [address] [address] Primary Staff PhysicianCardiology06/01/18 [place] [address] [place] [address] Specialty ConsultantHematology/Oncology07/11/24 Arianne Stockton MD [address] [place] [address] PhysicianHematology/Oncology08/16/24 Martha Marsh, MAHNAZ [address] [place] [address] Specialty Care CoordinatorHematology/Oncology08/16/24 Trevon Real MD [address] [place] [address] PhysicianRadiation Oncology08/16/24Te MemberRelationshipSpecialtyStart DateEnd Date Dayron Cervantes MD [address] [place] [address] PCP - GeneralFamily Medicine07/08/24 MatheusMai farrelltomasa Metzger [address] [place] [address] Primary Staff PhysicianCardiology06/01/18 [place] [address] [address] [place] [address] Specialty ConsultantHematology/Oncology07/11/24 Arianne Stockton MD [address] [facility] [place] [address] PhysicianHematology/Oncology08/16/24 Martha Marsh, MAHNAZ [address] [facility] [place] [address] Specialty Care CoordinatorHematology/Oncology08/16/24 Trevon Real MD [address] [place] [address] PhysicianRadiation Oncology08/16/24Team MemberRelationshipSpecialtyStart DateEnd Date Dayron Cervantes MD [address] [place] [address] PCP - GeneralFamily Medicine09/04/23 Dayron Cervantes MD [address] [place] [address] PCP - [facility]04/22/24 Arjun Chung MD [address] [place] [address] Referring PhysicianDermatolog05/12/24 Dat France DO [address] Martí[address] [place] [address] Otolaryngology2Team MemberRelationshipSpecialtyStart DateEnd Date Dayron Cervantes MD [address] [place] [address] PCP - GeneralFamily Medicine07/08/24 Charbel Zuñiga [address] [facility] ELLEN AYALABRUNSWICK H[facility] [address] Primary Staff PhysicianCardiology06/01/18 [place] [address] [place], [place] [address] Specialty ConsultantHematology/Oncology07/11/24Team MemberRelationshipSpecialty Start DateEnd Date Dayron Cervantes MD [address] [place] [address] PCP - [facility]09/04/23 Dayron Cervantes MD [address] [place] [address] PCP - [facility]04/22/24 Arjun Chung MD [address] [place], [place] [address] Referring PhysicianDermatolog05/12/24 Dat France DO [address] [place] [address] Otolaryngology2Team MemberRelationshipSpecialtyStart DateEnd Date Dayron Cervantes MD [address] [place], [place] [address] PCP - GeneralFamily Medicine07/08/24 Charbel Zuñigarobson [address] AYALAMAREKAmiraCLAM [place], [place] [address] Primary Staff PhysicianCardiology06/01/18 [place] [address] [address] [place], [place] [address]057[address] Specialty ConsultantHematology/Oncology07/11/24 Arianne Stockton MD [address] [place], [place] [address] PhysicianHematology/Oncology08/16/24 Martha Marsh, MAHNAZ [address] [place] [address] Specialty Care CoordinatorHematology/Oncology08/16/24 Trevon Real MD [address] [place] [address] PhysicianRadiation Oncology08/16/24Team MemberRelationshipSpecialtyStart DateEnd Date Dayron Cervantes MD [address] [place] [address] PCP - GeneralFamily Medicine09/04/23 Dayron Cervantes MD [address] [place] [address] PCP - [facility]04/22/24 Arjun Chung MD [address] [place] [address] Referring PhysicianDermatolog05/12/24 Dat France DO [address] Hermanpaul [facility] [place] [address] Otolaryngology2Team MemberRelationshipSpecialtyStart DateEnd Date Dayron Cervantes MD [address] [place] [address] PCP - GeneralFamily Medicine07/08/24 Charbel Zuñiga [address] [address] Primary Staff PhysicianCardiology06/01/18 [place] [address] [address] [place] [address] Specialty ConsultantHematology/Oncology07/11/24 Arianne Stockton MD [address] [facility] [place] [address] PhysicianHematology/Oncology08/16/24 Martha Marsh, MAHNAZ [address] [facility] [place] [address] Specialty Care CoordinatorHematology/Oncology08/16/24 Trevon Real MD [address] [facility] [place] [address] PhysicianRadiation Oncology08/16/24Team MemberRelationshipSpecialtyStart DateEnd Date Dayron Cervantes MD [address] [place] [address] PCP - GeneralFamily Medicine07/08/24 Charbel Zuñiga [address] [facility] [place] [address] Primary Staff PhysicianCardiology06/01/18 [place] [address] [place] [address] Specialty ConsultantHematology/Oncology07/11/24 Arianne Stockton MD [address] [facility] [place] [address] PhysicianHematology/Oncology08/16/24 Martha Marsh, MAHNAZ [address] [place] [address] Specialty Care CoordinatorHematology/Oncology08/16/24 Trevon Real MD [address] [place] [address] PhysicianRadiation Oncology08/16/24Team MemberRelationshipSpecialtyStart DateEnd Date Dayron Cervantes MD [address] [place] [address] PCP - GeneralFamily Medicine07/08/24 Charbel Zuñiga [address] [place] [address] Primary Staff PhysicianCardiology06/01/18 [place] [address] [place] [id number] Specialty ConsultantHematology/Oncology07/11/24 Arianne Stockton MD [address] [place] [id number] PhysicianHematology/Oncology08/16/24 Martha Marsh, MAHNAZ [address] [place] [address] Specialty Care CoordinatorHematology/Oncology08/16/24 Trevon Real MD [address] [place] [phone] PhysicianRadiation Oncology08/16/24Team MemberRelationshipSpecialtyStart DateEnd Date Dayron Cervantes MD [address] [place] [address] PCP - GeneralFamily Medicine07/08/24 Charbel Zuñiga [address] [place] [address] Primary Staff PhysicianCardiology06/01/18 [place] [address] [id number] Specialty ConsultantHematology/Oncology07/11/24 Arianne Stockton MD [address] [place] [address] PhysicianHematology/Oncology08/16/24 Martha Marsh, MAHNAZ [address] [place] [address] Specialty Care CoordinatorHematology/Oncology08/16/24 Trevon Real MD [address] [place] [address] PhysicianRadiation Oncology08/16/24Team MemberRelationshipSpecialtyStart DateEnd Date Dayron Cervantes MD [address] [place] [address] PCP - [facility]07/08/24 Charbel Zuñiga [address] [place] [address] Primary Staff PhysicianCardiology06/01/18 [place] [address] [place] [address] Specialty ConsultantHematology/Oncology07/11/24 Arianne Stockton MD [address] [place] [address] PhysicianHematology/Oncology08/16/24 Martha Marsh, MAHNAZ [address] [place] [address] Specialty Care CoordinatorHematology/Oncology08/16/24 Trevon Real MD [address] [place] [address] PhysicianRadiation Oncology08/16/24Te MemberRelationshipSpecialtyStart DateEnd Date Dayron Cervantes MD [address] [place] [address] PCP - GeneralFamily Medicine09/04/23 Dayron Cervantes MD [address] [place] [address] PCP - ACO Reach04/22/24 Arjun Chung MD [address] [place] [address] Referring PhysicianDermatology2 Dat [place] DO [address] [place] [address] Otolaryngology2Team MemberRelationshipSpecialtyStart DateEnd Date Dayron Cervantes MD [address] [place] [address] PCP - [facility] Medicine07/08/24 Charbel Zuñiga [address] [place] [address] Primary Staff PhysicianCardiology06/01/18 [place] [address] [address] [place] [address] Specialty ConsultantHematology/Oncology07/11/24 Arianne Stockton MD [address] [place] [address] PhysicianHematology/Oncology08/16/24 Martha Marsh, MAHNAZ [address] [place] [address] Specialty Care CoordinatorHematology/Oncology08/16/24 Trevon Real MD [address] [place] [address] PhysicianRadiation Oncology08/16/24Team MemberRelationshipSpecialtyStart DateEnd Date Dayron Cervantes MD [address] [place] [address] PCP - GeneralFamily Medicine07/08/24 Charbel Zuñiga [address] [place], [place] [address] [address] Primary Staff PhysicianCardiology06/01/18 [place] [address] [place] [address] Specialty ConsultantHematology/Oncology07/11/24 Arianne Stockton MD [address] [place] [address] PhysicianHematology/Oncology08/16/24 Martha Marsh, MAHNAZ [address] [place] [address] Specialty Care CoordinatorHematology/Oncology08/16/24 Trevon Real MD [address] [place] [address] PhysicianRadiation Oncology08/16/24Te MemberRelationshipSpecialtyStart DateEnd Date Dayron Cervantes MD [address] [place] [address] PCP - GeneralFamily Medicine07/08/24 Charbel Zuñiga [address] [place] [address] Primary Staff PhysicianCardiology06/01/18 [place] [address] [place] [address] Specialty ConsultantHematology/Oncology07/11/24 Arianne Stockton MD [address] [facility] [place] [address] PhysicianHematology/Oncology08/16/24 Martha Marsh, MAHNAZ [address] [facility] [place] [address] Specialty Care CoordinatorHematology/Oncology08/16/24 Trevon Real MD [address] [facility] [facility] [place] [address] PhysicianRadiation Oncology08/16/24Team MemberRelationshipSpecialtyStart DateEnd Date Dayron Cervantes MD [address] [place] [place] [address] PCP - GeneralFamily Medicine07/08/24 Charbel Zuñiga [address] [place] [address] Primary Staff PhysicianCardiology06/01/18 [place] [address] [place] [address] Specialty ConsultantHematology/Oncology07/11/24 Arianne Stockton MD [address] [facility] [place] [address] [place], [id number] PhysicianHematology/Oncology08/16/24 Martha Marsh, MAHNAZ [address] [place], [id number] Specialty Care CoordinatorHematology/Oncology08/16/24 Trevon Real MD [address] [place], [id number] PhysicianRadiation Oncology08/16/24Team MemberRelationshipSpecialtyStart DateEnd Date Dayron Cervantes MD [address] [place] [place] [address] PCP - GeneralFamily Medicine07/08/24 Charbel Zuñiga [address] [place] [address] Primary Staff PhysicianCardiology06/01/18 [place] [address] [address] [place] [place] [address] Specialty ConsultantHematology/Oncology07/11/24 Arianne Stockton MD [address] [place], [id number] PhysicianHematology/Oncology08/16/24 Martha Marsh, MAHNAZ [address] [place] [address] Specialty Care CoordinatorHematology/Oncology08/16/24 Trevon Real MD [address] [place] [address] PhysicianRadiation Oncology08/16/24Te MemberRelationshipSpecialtyStart DateEnd Date Dayron Cervantes MD [address] [place] [address] PCP - [facility] Medicine07/08/24 Charbel Zuñiga [address] [place], [place] [address] Primary Staff PhysicianCardiology06/01/18 [place] [address] [address] [place], [place] [id number] Specialty ConsultantHematology/Oncology07/11/24 Arianne Stockton MD [address] [place] [address] PhysicianHematology/Oncology08/16/24 Martha Masrh, MAHNAZ [address] [place] [address] Specialty Care CoordinatorHematology/Oncology08/16/24 Trevon Real MD [address] [place] [address] PhysicianRadiation Oncology08/16/24Te MemberRelationshipSpecialtyStart DateEnd Date Dayron Cervantes MD [address] [place] [address] PCP - [facility] Medicine07/08/24 Charbel Zuñiga [address] [place] [address] Primary Staff PhysicianCardiology06/01/18 [place] [address] [place] [address] Specialty ConsultantHematology/Oncology07/11/24 Arianne Stockton MD [address] [place] [address] PhysicianHematology/Oncology08/16/24 Martha Marsh, MAHNAZ [address] [place] [address] Specialty Care CoordinatorHematology/Oncology08/16/24 Trevon Real MD [address] [place] [address] PhysicianRadiation Oncology08/16/24Team MemberRelationshipSpecialtyStart DateEnd Date Dayron Cervantes MD [address] [place] [address] PCP - GeneralFamily Medicine07/08/24 Charbel Zuñiga [address] [place] [address] Primary Staff PhysicianCardiology06/01/18 [place] [address] [place] [address] Specialty ConsultantHematology/Oncology07/11/24 Arianne Stockton MD [address] [place] [address] PhysicianHematology/Oncology08/16/24 Martha Marsh, MAHNAZ [address] [place] [address] Specialty Care CoordinatorHematology/Oncology08/16/24 Trevon Real MD [address] [facility] [facility] [place] [address] PhysicianRadiation Oncology08/16/24Team MemberRelationshipSpecialtyStart DateEnd Date Dayron Cervantes MD [address] [place] [address] PCP - GeneralFamily Medicine07/08/24 Charbel Zuñiga [address] [place] [address] Primary Staff PhysicianCardiology06/01/18 [place] [address] [place] [address] Specialty ConsultantHematology/Oncology07/11/24 Arianne Stockton MD [address] [place] [address] PhysicianHematology/Oncology08/16/24 Martha Marsh RN [address] [facility] [place] [address] Specialty Care CoordinatorHematology/Oncology08/16/24 Trevon Real MD [address] [place] [address] PhysicianRadiation Oncology08/16/24Team MemberRelationshipSpecialtyStart DateEnd Date Dayron Cervantes MD [address] [place] [address] PCP - GeneralFamily Medicine07/08/24 MatheusCharbel farrell Domenica [address] [place] [address] Primary Staff PhysicianCardiology06/01/18 [place] [address] [address] [place] [address] Specialty ConsultantHematology/Oncology07/11/24 Arianne Stockton MD [address] [place] [address] PhysicianHematology/Oncology08/16/24 Martha Marsh, MAHNAZ [address] [place] [address] Specialty Care CoordinatorHematology/Oncology08/16/24 Trevon Real MD [address] [place] [address] PhysicianRadiation Oncology08/16/24Team MemberRelationshipSpecialtyStart DateEnd Date Dayron Cervantes MD [address] [place] [address] PCP - GeneralFamily Medicine09/04/23 Dayron Cervantes MD [address] [place] [address] PCP - ACO Reach04/22/24 Arjun Chung MD [address] [place] [address] [place] [address] Referring PhysicianDermatology2 Dat France DO [address] [place] [address] Otolaryngology2Team MemberRelationshipSpecialtyStart DateEnd Date Dayron Cervantes MD [address] [place] [address] PCP - GeneralFamily Medicine07/08/24 Charbel Zuñiga [address] [place], [place] [address] [address] Primary Staff PhysicianCardiology06/01/18 [place] [address] [address] [place] [id number] Specialty ConsultantHematology/Oncology07/11/24 Arianne Stockton MD [address] [place] [id number] PhysicianHematology/Oncology08/16/24 Martha Marsh, MAHNAZ [address] [place] [address] Specialty Care CoordinatorHematology/Oncology08/16/24 Trevon Real MD [address] [place] [address] PhysicianRadiation Oncology08/16/24 Team Status: Inactive Member Role Status Dates Dayron Cervantes MD Primary Care Provider Active S tart: December 07, 2024 End: December 07, 2024[facility] YANICK Cervantesttending ProviderActiveStart: December 07, 2024 End: December 07, 2024Team MemberRelationshipSpecialtyStart DateEnd Date Dayron Cervantes MD PCP [facility]09/04/23 Dayron Cervantes MD [address] [place] [address] PCP - ACO [facility]04/22/24 Arjun Chung MD [address] [place] [address] Referring PhysicianDermatology2 Dat [place] DO [address] [place] [address] Otolaryngology2 Goals (unrecognized section and content) Goals may be documented in a n alternate sectionGoals may be documented in an alternate sectionGoals may be documented in an alternate section No data available for this section No data available for this sectionNot on filedocumented as of this encounterGoals may be documented in an alternate sectionGoals may be documented in an alternate section Reason for Visit (unrecogniz ed section and content) 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 Pt relates some numbness BL feet. Unsure if issue is vascular or podiatric. Was having pain, but denies pain at this time.Reason CeoorwsvNauezv-sr3jTvahmuUgjzpugrFhtctq-xuIajgjtifaJlntsmhok / Procedures Referred By ContactReferred To ContactPhysical Therapy Diagnoses Bilateral primary osteoarthritis of hip Spinal stenosis, site unspecified Procedures [facility]ERAP[facility] EVALUATION LOW COMPLEX 20 MINS Sonido Quiles MD [address] [facility], [address] [place] [address] Staci Omer, PT Referral IDStatusReasonStart DateExpiration DateVisits RequestedVisits [id number]/[id number] IDStatusReasonStart Date Expiration DateVisits RequestedVisits [id number]/11/20241/ 30ReasonCommentsBlood in UrineReasonCommentsMohs Micrographic SurgerySuspicious Skin LesionReasonCommentsMohs ReconstructionNew Patient : Mohs left mormon / BCC CfxuupNhyuxgcfJkfo-jpQmppdqRllazkqxDrvg-hc1 month geetha mohsReasonComments Suspicious Skin LesionReasonCommentsMohs Micrographic SurgeryReasonCommentsMohs ReconstructionMohs left ear - SCCReasonCommentsRadiology MRISpecialtyDiagnoses / ProceduresReferred By ContactReferred To ContactMR IMAGING Diagnoses Screening for genitourinary condition Procedures MRI PELVIS BLADDER WO/W IVCON MRI PELVIS W/O & W/CONTRAST MATERIAL Babak Hernández MD [address] [place] [address] Phone: tel: fax: [facility] [place] [address] Referral IDStatusReasonStshelby DateExpiration DateVisits RequestedVisits [id number] Auto-Generated Referral [id number]-Hw VisitReasonCommentsMohs Reconstruction Geetha ear / possible surgeryReasonCommentsConsultSpecialtyDiagnoses / Procedures Referred By ContactReferred To ContactOncology Diagnoses Malignant neoplasm of urinary bladder, unspecified site (HCC) Procedures CONSULT TO ONCOLOGY OFFICE/OUTPATIENT [facility] 60 MINUTES Babak Hernández MD [address] [place] [address] Phone: tel: fax: Referral IDStatusReasonStart DateExpiration DateVisits RequestedVisits [id number] PCP Requested Referral [id number] EducationReasonComments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New patient consultSpecialty Diagnoses / ProceduresReferred By ContactReferred To Contact Diagnoses 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) Procedures CONSULT TO HEMATOLOGY/ONCOLOGY OFFICE/OUTPATIENT [facility] MDM 60 [place] [address] [place] [address] Phone: tel: fax: Referral IDStatusReasonStart DateExpiration DateVisits RequestedVisits [id number] PCP Requested Referral [id number] AppointmentSchedule SimulationReason CommentsAppointmentReasonCommentsFirst Time Treatment EducationCisplatinReason Comments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ReasonCommentsCare Coordination AntiemeticsReasonOnset DateCommentsSimulation Request Form08/10/2024Urothelial CancerSpecialtyDiagnoses / ProceduresReferred By ContactReferred To Contact Radiation Oncology Diagnoses 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) Procedures RAD/ONC CONSULT OFFICE/OUTPATIENT [facility] 60 MINUTES Lilliam Stein [place] [id number] [place] [address] Phone: tel: fax: Referral IDStatusReasonStart DateExpiration DateVisits RequestedVisits [id number] PCP Requested Referral [id number]-qzPsbo swelligMedicare Annual Wellness Visit Subsequentfort belvoir community hospitalReresearch psychiatric centerComments[facility] OrdersReasonCommentsResGeorgiana Medical Center 15- 1574 [id number] Informed ConsentReasonCommentsBladder CancerReasonOnset Date CommentsSimulation Request Form08/18/2024ReasonCommentsCare QosjcuhxlwwrM4V4 Post Treatment CallReasonOnset DateCommentsCare Iwsaqsbnijxb58/30/2025INRReason Comments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Treatment visit ReasonCommentsRadiotherapy On-treatment VisitReasonCommentsFYI-No Action Needed ReasonComments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Reason CommentsUrothelial cancerTreatment visitReasonCommentsBladder CancerTreatment visitReasonCommentsBladder CancerReasonCommentsCare CoordinationUrinary Symptoms ReasonCommentsOrdersReasonCommentsPost Radiation Treatment Follow UpReason CommentsSkin Check Source Comments (unrecognize d section and content) In the event this informatio n is protected by the Federal Confidentiality of Alcohol and Drug Abuse Patient Records regulations: The Federal rules restrict any use of the information to criminally investigate or prosecute any alcohol or drug abuse patient.[facility] HospitalIn the event this information is protected by the Federal Confidentiality of Alcohol and Drug Abuse Patient Records regulations: The Federal rules restrict any use of the information to criminally investigate or prosecute any alcohol or drug abuse patient.[facility] HospitalIn the event this information is protected by the Federal Confidentiality of Alcohol and Drug Abuse Patient Records regulations: The Federal rules restrict any use of the information to criminally investigate or prosecute any alcohol or drug abuse patient.[facility] HospitalIn the event this information is protected by the Federal Confidentiality of Alcohol and Drug Abuse Patient Records regulations: The Federal rules restrict any use of the information to criminally investigate or prosecute any alcohol or drug abuse patient.[facility] HospitalIn the event this information is protected by the Federal Confidentiality of Alcohol and Drug Abuse Patient Records regulations: The Federal rules restrict any use of the information to criminally investigate or prosecute any alcohol or drug abuse patient.[facility] HospitalIn the event this information is protected by the Federal Confidentiality of Alcohol and Drug Abuse Patient Records regulations: The Federal rules restrict any use of the information to criminally investigate or prosecute any alcohol or drug abuse patient.[facility] HospitalIn the event this information is protected by the Federal Confidentiality of Alcohol and Drug Abuse Patient Records regulations: The Federal rules restrict any use of the information to criminally investigate or prosecute any alcohol or drug abuse patient.[facility] HospitalIn the event this information is protected by the Federal Confidentiality of Alcohol and Drug Abuse Patient Records regulations: The Federal rules restrict any use of the information to criminally investigate or prosecute any alcohol or drug abuse patient.[facility] HospitalIn the event this information is protected by the Federal Confidentiality of Alcohol and Drug Abuse Patient Records regulations: The Federal rules restrict any use of the information to criminally investigate or prosecute any alcohol or drug abuse patient.[facility] HospitalIn the event this information is protected by the Federal Confidentiality of Alcohol and Drug Abuse Patient Records regulations: The Federal rules restrict any use of the information to criminally investigate or prosecute any alcohol or drug abuse patient.[facility] HospitalIn the event this information is protected by the Federal Confidentiality of Alcohol and Drug Abuse Patient Records regulations: The Federal rules restrict any use of the information to criminally investigate or prosecute any alcohol or drug abuse patient.[facility] HospitalIn the event this information is protected by the Federal Confidentiality of Alcohol and Drug Abuse Patient Records regulations: The Federal rules restrict any use of the information to criminally investigate or prosecute any alcohol or drug abuse patient.[facility] HospitalIn the event this information is protected by the Federal Confidentiality of Alcohol and Drug Abuse Patient Records regulations: The Federal rules restrict any use of the information to criminally investigate or prosecute any alcohol or drug abuse patient.[facility] HospitalIn the event this information is protected by the Federal Confidentiality of Alcohol and Drug Abuse Patient Records regulations: The Federal rules restrict any use of the information to criminally investigate or prosecute any alcohol or drug abuse patient.[facility] HospitalIn the event this information is protected by the Federal Confidentiality of Alcohol and Drug Abuse Patient Records regulations: The Federal rules restrict any use of the information to criminally investigate or prosecute any alcohol or drug abuse patient.[facility] HospitalIn the event this information is protected by the Federal Confidentiality of Alcohol and Drug Abuse Patient Records regulations: The Federal rules restrict any use of the information to criminally investigate or prosecute any alcohol or drug abuse patient.[facility] HospitalIn the event this information is protected by the Federal Confidentiality of Alcohol and Drug Abuse Patient Records regulations: The Federal rules restrict any use of the information to criminally investigate or prosecute any alcohol or drug abuse patient.[facility] HospitalIn the event this information is protected by the Federal Confidentiality of Alcohol and Drug Abuse Patient Records regulations: The Federal rules restrict any use of the information to criminally investigate or prosecute any alcohol or drug abuse patient.[facility] HospitalIn the event this information is protected by the Federal Confidentiality of Alcohol and Drug Abuse Patient Records regulations: The Federal rules restrict any use of the information to criminally investigate or prosecute any alcohol or drug abuse patient.[facility] HospitalIn the event this information is protected by the Federal Confidentiality of Alcohol and Drug Abuse Patient Records regulations: The Federal rules restrict any use of the information to criminally investigate or prosecute any alcohol or drug abuse patient.[facility] HospitalIn the event this information is protected by the Federal Confidentiality of Alcohol and Drug Abuse Patient Records regulations: The Federal rules restrict any use of the information to criminally investigate or prosecute any alcohol or drug abuse patient.[facility] HospitalIn the event this information is protected by the Federal Confidentiality of Alcohol and Drug Abuse Patient Records regulations: The Federal rules restrict any use of the information to criminally investigate or prosecute any alcohol or drug abuse patient.[facility] HospitalIn the event this information is protected by the Federal Confidentiality of Alcohol and Drug Abuse Patient Records regulations: The Federal rules restrict any use of the information to criminally investigate or prosecute any alcohol or drug abuse patient.[facility] HospitalIn the event this information is protected by the Federal Confidentiality of Alcohol and Drug Abuse Patient Records regulations: The Federal rules restrict any use of the information to criminally investigate or prosecute any alcohol or drug abuse patient.[facility] HospitalIn the event this information is protected by the Federal Confidentiality of Alcohol and Drug Abuse Patient Records regulations: The Federal rules restrict any use of the information to criminally investigate or prosecute any alcohol or drug abuse patient.[facility] HospitalIn the event this information is protected by the Federal Confidentiality of Alcohol and Drug Abuse Patient Records regulations: The Federal rules restrict any use of the information to criminally investigate or prosecute any alcohol or drug abuse patient.[facility] HospitalIn the event this information is protected by the Federal Confidentiality of Alcohol and Drug Abuse Patient Records regulations: The Federal rules restrict any use of the information to criminally investigate or prosecute any alcohol or drug abuse patient.[facility] HospitalIn the event this information is protected by the Federal Confidentiality of Alcohol and Drug Abuse Patient Records regulations: The Federal rules restrict any use of the information to criminally investigate or prosecute any alcohol or drug abuse patient.[facility] HospitalIn the event this information is protected by the Federal Confidentiality of Alcohol and Drug Abuse Patient Records regulations: The Federal rules restrict any use of the information to criminally investigate or prosecute any alcohol or drug abuse patient.[facility] HospitalIn the event this information is protected by the Federal Confidentiality of Alcohol and Drug Abuse Patient Records regulations: The Federal rules restrict any use of the information to criminally investigate or prosecute any alcohol or drug abuse patient.[facility] HospitalIn the event this information is protected by the Federal Confidentiality of Alcohol and Drug Abuse Patient Records regulations: The Federal rules restrict any use of the information to criminally investigate or prosecute any alcohol or drug abuse patient.[facility] HospitalIn the event this information is protected by the Federal Confidentiality of Alcohol and Drug Abuse Patient Records regulations: The Federal rules restrict any use of the information to criminally investigate or prosecute any alcohol or drug abuse patient.[facility] HospitalIn the event this information is protected by the Federal Confidentiality of Alcohol and Drug Abuse Patient Records regulations: The Federal rules restrict any use of the information to criminally investigate or prosecute any alcohol or drug abuse patient.[facility] HospitalIn the event this information is protected by the Federal Confidentiality of Alcohol and Drug Abuse Patient Records regulations: The Federal rules restrict any use of the information to criminally investigate or prosecute any alcohol or drug abuse patient.[facility] HospitalIn the event this information is protected by the Federal Confidentiality of Alcohol and Drug Abuse Patient Records regulations: The Federal rules restrict any use of the information to criminally investigate or prosecute any alcohol or drug abuse patient.[facility] HospitalIn the event this information is protected by the Federal Confidentiality of Alcohol and Drug Abuse Patient Records regulations: The Federal rules restrict any use of the information to criminally investigate or prosecute any alcohol or drug abuse patient.[facility] HospitalIn the event this information is protected by the Federal Confidentiality of Alcohol and Drug Abuse Patient Records regulations: The Federal rules restrict any use of the information to criminally investigate or prosecute any alcohol or drug abuse patient.[facility] HospitalIn the event this information is protected by the Federal Confidentiality of Alcohol and Drug Abuse Patient Records regulations: The Federal rules restrict any use of the information to criminally investigate or prosecute any alcohol or drug abuse patient.[facility] HospitalIn the event this information is protected by the Federal Confidentiality of Alcohol and Drug Abuse Patient Records regulations: The Federal rules restrict any use of the information to criminally investigate or prosecute any alcohol or drug abuse patient.[facility] HospitalIn the event this information is protected by the Federal Confidentiality of Alcohol and Drug Abuse Patient Records regulations: The Federal rules restrict any use of the information to criminally investigate or prosecute any alcohol or drug abuse patient.[facility] HospitalIn the event this information is protected by the Federal Confidentiality of Alcohol and Drug Abuse Patient Records regulations: The Federal rules restrict any use of the information to criminally investigate or prosecute any alcohol or drug abuse patient.[facility] HospitalIn the event this information is protected by the Federal Confidentiality of Alcohol and Drug Abuse Patient Records regulations: The Federal rules restrict any use of the information to criminally investigate or prosecute any alcohol or drug abuse patient.[facility] HospitalIn the event this information is protected by the Federal Confidentiality of Alcohol and Drug Abuse Patient Records regulations: The Federal rules restrict any use of the information to criminally investigate or prosecute any alcohol or drug abuse patient.[facility] HospitalIn the event this information is protected by the Federal Confidentiality of Alcohol and Drug Abuse Patient Records regulations: The Federal rules restrict any use of the information to criminally investigate or prosecute any alcohol or drug abuse patient.[facility] HospitalIn the event this information is protected by the Federal Confidentiality of Alcohol and Drug Abuse Patient Records regulations: The Federal rules restrict any use of the information to criminally investigate or prosecute any alcohol or drug abuse patient.[facility] HospitalIn the event this information is protected by the Federal Confidentiality of Alcohol and Drug Abuse Patient Records regulations: The Federal rules restrict any use of the information to criminally investigate or prosecute any alcohol or drug abuse patient.[facility] HospitalIn the event this information is protected by the Federal Confidentiality of Alcohol and Drug Abuse Patient Records regulations: The Federal rules restrict any use of the information to criminally investigate or prosecute any alcohol or drug abuse patient.[facility] HospitalIn the event this information is protected by the Federal Confidentiality of Alcohol and Drug Abuse Patient Records regulations: The Federal rules restrict any use of the information to criminally investigate or prosecute any alcohol or drug abuse patient.[facility] HospitalIn the event this information is protected by the Federal Confidentiality of Alcohol and Drug Abuse Patient Records regulations: The Federal rules restrict any use of the information to criminally investigate or prosecute any alcohol or drug abuse patient.[facility] HospitalIn the event this information is protected by the Federal Confidentiality of Alcohol and Drug Abuse Patient Records regulations: The Federal rules restrict any use of the information to criminally investigate or prosecute any alcohol or drug abuse patient.[facility] HospitalIn the event this information is protected by the Federal Confidentiality of Alcohol and Drug Abuse Patient Records regulations: The Federal rules restrict any use of the information to criminally investigate or prosecute any alcohol or drug abuse patient.[facility] HospitalIn the event this information is protected by the Federal Confidentiality of Alcohol and Drug Abuse Patient Records regulations: The Federal rules restrict any use of the information to criminally investigate or prosecute any alcohol or drug abuse patient.[facility] HospitalIn the event this information is protected by the Federal Confidentiality of Alcohol and Drug Abuse Patient Records regulations: The Federal rules restrict any use of the information to criminally investigate or prosecute any alcohol or drug abuse patient.[facility] HospitalIn the event this information is protected by the Federal Confidentiality of Alcohol and Drug Abuse Patient Records regulations: The Federal rules restrict any use of the information to criminally investigate or prosecute any alcohol or drug abuse patient.[facility] FOR RECORDS PERTAINING TO PATIENTS WHO ARE [...] BE BASED ON THE PRIMARY CLINICAL RECORDS. [facility] [employer] [facility]. provides no warranty or guarantee of the accuracy or completeness of information in this document.
[2025-02-24 11:53] LABS: INR 3.46; Prothrombin Time 33.5 sec (9.0-11.6)
[2025-02-24 12:40] LABS: Cholesterol 159 mg/dL (<=200); HDL Cholesterol 33 mg/dL (40-60); Thyroid Stimulating Hormone 1.828 uIU/mL (0.358-3.740); Triglycerides 227 mg/dL (<=150); VLDL CHOLESTEROL 45.4 mg/dL
== END 2025-02-24 11:04 | disposition home or self-care (01) ==
PROVIDERS: PCP Family Medicine; Visit Provider Family Medicine
DX: E78.5 Hyperlipidemia, unspecified (principal); R73.03 Prediabetes; Z79.899 Other long term (current) drug therapy; E66.811 Obesity, class 1; E66.09 Other obesity due to excess calories; Z68.32 Body mass index [BMI] 32.0-32.9, adult; Z51.81 Encounter for therapeutic drug level monitoring; Z79.01 Long term (current) use of 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
CPT/HCPCS: 36415; 80061; 83036; 84443; 85610

== ENCOUNTER 2025-02-27 12:37 | Outpatient (OUT) | payer MEDICARE, OTHER, SELFPAY ==
--- OUTSIDE RECORDS SUMMARY | 2025-02-27 04:01 | XMS_ITS | Continuity of Care Document ---
Author Organization [facility] Address [address] [place] [address] Phone Care Team Providers Care Apartment House Manager Name Role Phone Dayron Ferreira MD Primary Care Provider Dayron Ferreira MD Attending Provider [phone] Nataly Ordonez NP-C Attending Provider Jose Hernández MD Attending Provider Care Teams Patient Care Team Team Status: Active Member Role/Relationship Status Dates Dayron Ferreira MD Primary Care Provider Active Visit Care Team Team Status: Inactive Member Role/Relationship Status Dates Dayron Ferreira MD Primary Care Provider Active S tart: December 07, 2024 End: December 07, 2024Jolie Willis ProviderActiveStart: December 07, 2024 End: December 07, 2024 Visit Care Team Team Status: Active Member Role/Relationship Status Dates Dayron Ferreira MD Primary Care Provider Active S tart: December 19, 2024 Nataly Ordonez NP-CAttending ProviderActiveStart: December 19, 2024 Visit Care Team Team Status: Active Member Role/Relationship Status Dates Dayron Ferreira MD Primary Care Provider Active S tart: January 09, 2025 Jolie Bauer ProviderActiveStart: January 09, 2025 Patient Care Team Team Status: Active Member Role/Relationship Status Dates Dayron Ferreira MD Primary Care Provider Active S tart: February 24, 2025 Jolie Willis ProviderActiveStart: February 24, 2025 Patient Care Team Team Status: Inactive Member Role/Relationship Status Dates Dayron Ferreira MD Primary Care Provider Active S tart: February 27, 2025 End: February 27, 2025Marc YANICK Ferreirattending ProviderActiveStart: February 27, 2025 End: February 27, 2025 Chief Complaint and Reason for Visit Chief Complaint Admit Date Established Patient December 07, 2024 8:09am 3m February 27, 2025 7:57am Reason for Visit Admit Date Benign hypertension [...] 2024 8:09am Venous insufficiency December 07 8:09am Benign hypertension February 27, 2025 7:57am Bilateral primary osteoarthritis of hip February 27, 2025 7:57am Lumbar stenosis without neurogenic donna ication February 27, 2025 7:57am PVC (premature ventricular contraction) February 27, 2025 7:57am 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 February 27, 2025 7:57am Venous insufficiency February 27, 2025 7:57am Allergies, Adverse Reactions, Alerts Allergen Type Severity Reaction Last Updated Verified Status No Known Allergies Allergy Unknown February 27, 2025 8:13amYesActive Social History Smoking Status Status Start Date End Date Date of Observa tion Ex-smoker (finding) December 07, 2024 8:35am Observation Status Observation Response Date of Response Legal Sex Male (finding) [facility] 1950 Family History Relationship Condition Age at Onset Recorded Date/T ivan mother Type 2 diabetes mellitus Unknown fatherChronic obstructive pulmonary diseaseUnknownMalignant neoplasm of lung UnknownMalignant neoplasm of testicleUnknownCerebrovascular accident (CVA) UnknownbrotherCerebrovascular accident (CVA)UnknownType 2 diabetes mellitus Unknown Problems Active Problems Problem Diagnosis/Recorded Date Onset Date Status C omments Encounter for monitoring Coumadin therapy November 30, 2024 8:22am Unknown Active 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September 2024 6:02amUnknownActiveSpondylosis without myelopathy or radiculopathy, thoracic regionSeptember 2024 5:59amUnknownActiveBilateral primary osteoarthritis of hipy 2023 9:45amUnknownActiveBilateral primary osteoarthritis of hip December 07, 2024 6:00amUnknownActiveTinea crurisSeptember 2024 8:04am UnknownActivePulmonary fibrosisSeptember 2024 5:58amUnknownActiveCervical spinal stenosisSeptember 2024 5:56amUnknownActiveBenign hypertension December 07, 2024 5:56amUnknownActiveChronic kidney disease, stage III (moderate)December 07, 2024 5:57amUnknownActiveDyslipidemiaSeptember 2024 5:57amUnknownActivePVC (premature ventricular contraction)December 07, 2024 5:59amUnknownActiveRenal artery stenosisSeptember 2024 5:58amUnknown ActiveEncounter for long-term (current) use of medicationsSeptember 2024 7:58amUnknownActivePostoperative painMarch 2024 5:12pmUnknownActive Arthropathy of right hipJuly 2023 8:19amUnknownActiveVenous insufficiency December 07, 2024 6:02amUnknownActivePrediabetesSeptember 2024 5:57am UnknownActiveBilateral hip painApril 2023 12:32pmUnknownActiveChronic rhinosinusitisSeptember 2024 5:56amUnknownActiveBPH associated with nocturiaSeptember 2024 6:00amUnknownActiveVitamin D deficiencySeptember 2024 5:58amUnknownActiveClass 1 obesity due to excess calories with serious comorbidity and body mass index (BMI) of 32.0 to 32.9 in adultSeptember 2024 6:01amUnknownActiveLumbar stenosis without neurogenic claudication September 24, 2023 8:19amUnknownActiveInactive/Resolved Problems Problem Diagnosis/Recorded Date Onset Date Status C omments Gross hematuria December 07, 2024 6:01am Unknown Res olved Spinal stenosisMa2023 8:22amUnknownResolvedwith right sided weakness Medications Medication Status Dose Units Route Directions Qty Days Refills S tart Date Stop Date End Date Reason(s) Instructions Adherence Cholecalciferol (Vitamin D3) (Vitamin D3) 50 mcg (2,000 unit) tablet Active 50 MCG PO every day at noo n May 13, 2024 12:00amComplies with drug therapyCephalexin 500 mg capsule Kofoqsfdwadc449RENZJuzrd dailyFebruary 2024 12:00amSeptember 2024 7:33amLisinopril 20 mg xuyxbsYdngxt63HRPBEorxr at bedtimeFebruary 2024 12:00amComplies with drug therapyHydrocodone-Acetaminophen 5-325 mg tablet Guqnglfwaicy6QIKBFYcqym 6 hours as needed for ozuv6731Miajq 2024September 2024 7:34amPostoperative pain Other acute postprocedural painOmega 1-Hap-Lpx-Fish Oil (Fish Oil) 60-90-500 mg oqstmosSlbpyo5BJQVSIkgiy at bedtimeJuly 2023 11:00pmComplies with drug therapyFurosemide 40 mg mezwjtZwebht77TKJEEvwrhRlfignjwu 2024 11:00pm Complies with drug therapyTamsulosin 0.4 mg capsuleActive0.4MGPODailySeptember 2024 11:00pmComplies with drug therapyClotrimazole 1 % creamDiscontinued1 APPLICTOPICALTwice mujtt58274Lozeebztl 2024 11:00pmDecember 2024 8:42amClotrimazole-Betamethasone 1-0.05 % bmzotUuipqn0QDEEXFRJBXPZTEobyt daily45 1December 2024 12:00amComplies with drug therapyMetoprolol Tartrate 50 mg qxkzfqBfgiba23BAYAXauue dailyApril 2023 11:00pmComplies with drug therapy Warfarin 5 mg qyxlevJboypd0KCPLagkoq day at noonApril 2023 11:00pmOn Hold: Resume on 05/20/24.Complies with drug therapyCholecalciferol (Vitamin D3) 62.5 mcg (2,500 unit) capsuleDiscontinuedMCGPOApril 2023 11:00pmFebruary 2024 8:00amCoenzyme Q10 (Co Q-10) 100 mg llkmquvEfyhou033LBHYatjok day at noon July 14, 2023 11:00pmComplies with drug therapyMultivitamin tabletActive0.5 TABPOevery day at noonApril 2023 11:00pmComplies with drug therapy Glucosamine Sulfate 1,000 mg rndamzwXydaipjlqgwj9005PEUETdtrj dailyApril 2023 11:00pmSeptember 2024 6:05amadminister with mealsLisinopril 10 mg ygccvqPsvdmnbztiaa65MVDIOgbxzXcgho 2023 11:00pmFebruary 2024 8:04am Simvastatin 20 mg klpjbfIcqmqa82WDHHRwjzz at bedtimeApril 2023 11:00pm Complies with drug therapyTerazosin 10 mg bsbsfaoMngjsd54SXZPOcnof at bedtime July 14, 2023 11:00pmComplies with drug therapyMedical marijuanaActivePODaily July 14, 2023 11:00pmComplies with drug therapy Immunizations Immunization Event Date Not Given Reason Dose Number Online Services Manager Lot Number Reason(s) Given Vaccine Information Statement (VIS) Detail Administration Location COVID-19 mRNA-1273 (Moderna) April 27, 2020 COVID-19 mRNA-1273 (Moderna)May 25OVID-19 mRNA-1273 (Moderna)January 05OVID-19 mRNA-1273 (Moderna)June 24OVID-19 mRNA Bivalent Booster (Moderna)December 022COVID-19 (PFIZER) 12Y and older December 29OVID-19 (PFIZER) 3075-4206 12Y and olderOct2022 Influenza, trivalentOct2023 Relevant Diagnostic Tests and/or Laboratory Data Laboratory Results Test Collection Date/Time Result Date/Time Result Interpretation Reference Range Result Comment Performing Site Alanine Aminotransferase (ALT/SGPT) December 19, 2024 6:59am December 19, 2024 6:59am 21 U/L 10-54Basophils # (Auto)December 19, 2024 6:59amOct2024 6:59am0.04 k/uL <0.11Ionized CalciumOct2024 6:59amOctober 2024 6:59am1.24 mmol/L 1.12-1.32Please note: This value represents ionized calcium not total calcium. Carbon Dioxide LevelOctober 2024 11:37amOctober 2024 11:37am23 mmol/X57-15AlbospnpmbNcegiid 27th, 2025 11:37amOctober 2024 11:37am14.1 g/dL13.0-17.0Prothrombin TimeOct2024 11:37amOctober 2024 11:37am31.4 secAbove high normal9.7-13.0Activated Partial Thromboplast Time January 09, 2025 11:37amOctober 2024 8:26pm33.9 secAbove high normal 23.0-32.4Frozen Plasma AliquotUrine Calcium Oxalate CrystalsOct2024 12:19pmOctober 2024 12:19pmFew [HPF]Abnormal (applies to non-numeric results)None SeenEstimated Average GlucoseDecember 2024 11:11amDecemb2024 11:22wc397 mg/dLProthromb Time International RatioDece2024 11:11amDecemb2024 11:11am3.46DESIRED INR:2.0-3.0 CONDITIONS NOT LISTED BELOW2.5-3.5 FOR PROSTHETIC HEART VALVE REPLACEMENT2.5-3.5 RECURRENT THROMBOSIS Thyroid Stimulating Hormone 3rd GenDece2024 11:11amDecember 12th, 2025 11:11am1.828 u[iU]/mL0.358-3.740Cholesterol/HDL RatioDece2024 11:11amDece2024 11:11am4.83.3 - 4.4 LOW RISK4.4 - 7.1 AVERAGE RISK7.1 - 11.0 MODERATE RISK>11.0 HIGH RISKAlbuminOct2024 6:59amOctober 2024 6:59am4.0 g/dL3.9-4.9Basophils (%) (Auto)December 19, 2024 6:59amOctober 2024 6:59am0.5 %Chloride LevelJanuary 09, 2025 11:37amOctober 2024 11:65ra014 mmol/E76-606Hwftfbhfg Red Blood Cells #January 09, 2025 11:37am January 09, 2025 11:37am<0.01 k/uL<0.01Prothromb Time International Ratio January 09, 2025 11:37amOctober 2024 11:37am3.2Above high normal0.9-1.3 Vitamin K Antagonist (VKA) Therapeutic Range: INR 2 to 3 (Target INR of 2.5)Note: For patients treated with VKA drugs, such as warfarin, the [place] [employer] 2012 Guideline recommends [...] of 3).Ale FRAUSTO, et al. Chest 2012, 141:7S-47SBill RA, et al. [facility] 2017, 70: 252-289Urine KetonesOctober 2024 12:19pmOctober 2024 12:19pmNegativeNegativeHemoglobin A1c February 24, 2025 11:11amDece2024 11:11am5.8 %4.5-6.2ADA RECOMMENDED LIMIT 4.0 - 6.0ADA THERAPEUTIC TARGET < 7.0ACTION SUGGESTED> 7.0 Prothrombin TimeDece2024 11:11amD2024 11:11am33.5 sec Above high normal9.0-11.6Cholesterol LevelDece2024 11:11amDece2024 11:21eu642 mg/dL<=200Aspartate Amino Transf (AST/SGOT)December 19, 2024 6:59amOctober 2024 6:59am20 U/S83-93Vgzamenmqle # (Auto)December 19, 2024 6:59amOctober 2024 6:59am0.20 k/uL<0.46POC Whole Blood GlucoseOct2024 6:59amOct2024 6:90kl567 mg/dLAbove high ywfhdu47-439 CreatinineOctober 2024 11:37amOctober 2024 11:37am1.09 mg/dL 0.73-1.22Platelet CountOct2024 11:37amOctober 2024 11:99rm562 k/bL523-401Yvixo BacteriaOct2024 12:19pmOctober 2024 12:19pm Negative [HPF]NegativeHDL CholesterolDe2024 11:11amDece2024 11:11am33 mg/dLBelow low -42> or =60 mg/dl - LOW CARDIOVASCULAR RISK<40 mg/dl - HIGH CARDIOVASCULAR RISKTotal BilirubinOct2024 6:59am December 19, 2024 6:59am0.3 mg/dL0.2-1.3Eosinophils (%) (Auto)December 19, 2024 6:59amOctober 2024 6:59am2.5 %Random GlucoseOctober 2024 11:37am January 09, 2025 11:76gu577 mg/dLAbove high lbumcx54-58Bbr [place] [employer] (ADA) provides guidance for cutoff [...] hyperglycemia or hyperglycemic crisis, random plasma glucose resultsgreater than or equal to 200 mg/dL meet the criteria for diagnosis of diabetes.Reference: [employer] in Diabetes 2016, [place] [employer]. Diabetes Care. 2016.39(Suppl 1). Mean Corpuscular HemoglobinOctfleming county hospital 2024 11:37amOctober 2024 11:37am 30.7 pg26.0-34.0Urine BilirubinOctfleming county hospital 2024 12:19pmOctfleming county hospital 2024 12:19pmNegativeNegativeLDL Cholesterol, CalculatedDeceencompass health [facility] 2024 11:11am February 24, 2025 11:11am81.0 mg/dL<100 mg/dl LJIXALL680-666 mg/dl NEAR OR ABOVE NVARJBG296-055 mg/dl BORDERLINE LQZA862-800 mg/dl HIGH>190 mg/dl VERY HIGH Carbon Dioxide LevelOctfleming county hospital 2024 6:59amOctober 2024 6:59am24 mmol/L 22-30HemoglobinOctfleming county hospital 2024 6:59amOctfleming county hospital 2024 6:59am13.1 g/dL 13.0-17.0Potassium LevelOctfleming county hospital 2024 11:37amOctober 2024 11:37am4.1 mmol/L3.7-5.1Mean Corpuscular Hemoglobin ConcentOctfleming county hospital 2024 11:37am January 09, 2025 11:37am32.3 g/dL30.5-36.0Urine ColorOctfleming county hospital 2024 12:19pmOctober 2024 12:19pmDark YellowAbnormal (applies to non-numeric results)YellowTriglycerides LevelDeceencompass health rehabilitation hospital [facility] 2024 11:11amDecember 2024 11:07eq115 mg/dLAbove high normal<=150Chloride LevelOctober 2024 6:59am December 19, 2024 6:58if639 mmol/L09-148Rxtdbbbiemv # (Auto)December 19, 2024 6:59amOctober 2024 6:59am1.50 k/uL1.00-4.00Sodium LevelOctober 2024 11:37amOctober 2024 11:70nm926 mmol/A491-011Utqw Corpuscular VolumeOctober 2024 11:37amOctober 2024 11:37am95.2 fL80.0-100.0Urine Squamous Epithelial CellsOctober 2024 12:19pmOctober 2024 12:19pmNone Seen [HPF]VLDL CholesterolDecember 2024 11:11amDecember 2024 11:11am45.4 mg/dLCreatinineOctober 2024 6:59amOctober 2024 6:59am1.13 mg/dL 0.73-1.22Lymphocytes (%) (Auto)December 19, 2024 6:59amOctober 2024 6:59am 18.5 %Blood Urea NitrogenOctober 2024 11:37amOctober 2024 11:37am15 mg/dL9-24Red Blood CountOctober 2024 11:37amOctober 2024 11:37am4.59 m/uL4.20-6.00Urine Glucose (UA)January 09, 2025 12:19pmOctober 2024 12:19pmNegativeNegativeRandom GlucoseOctober 2024 6:59amOctober 2024 6:61nc197 mg/dLAbove high naiwcp36-20Asr [place] [employer] (ADA) provides guidance for cutoff [...] hyperglycemia or hyperglycemic crisis, random plasma glucose resultsgreater than or equal to 200 mg/dL meet the criteria for diagnosis of diabetes.Reference: [employer] in Diabetes 2016, [place] [employer]. Diabetes Care. 2016.39(Suppl 1).Monocytes # (Auto)December 19, 2024 6:59amOctober 2024 6:59am0.76 k/uL<0.87Calcium LevelOctober 2024 11:37amOctober 2024 11:37am9.7 mg/dL8.5-10.2HematocritOctober 2024 11:37amOctober 2024 11:37am43.7 %39.0-51.0Urine Occult BloodOctober 2024 12:19pmOctober 2024 12:19pmNegativeNegativePotassium LevelOct2024 6:59amOctober 2024 6:59am4.2 mmol/L3.7-5.1Neutrophils # (Auto) December 19, 2024 6:59amOctober 2024 6:59am5.57 k/uL1.45-7.50Anion Gap January 09, 2025 11:37amOctober 2024 11:37am13 mmol/L8-15Corrected White Blood CountOctober 2024 11:37amOctober 2024 11:37am8.69 k/uL 3.70-11.00Urine Hyaline CastsOctober 2024 12:19pmOctober 2024 12:19pm0 /LPF0 /LPFSerum Total ProteinOctober 2024 6:59amOctober 2024 6:59am6.5 g/dL6.3-8.0Neutrophils (%) (Auto)December 19, 2024 6:59amOctober 2024 6:59am68.6 %Estimated GFR (CKD-EPI)January 09, 2025 11:37amOctober 2024 11:37am71 mL/min/1.73m???>=60Estimated Glomerular Filtration Rate (eGFR) is calculated using the 2020 CKD-EPI creatinine equation. This equation utilizes serum creatinine, sex, and age as parameters. The creatinine assay has traceable calibration to isotope dilution-mass spectrometry. Refer to KDIGO guidelines for clinical interpretation. In patients with unstable renal function, e.g. those with acute kidney injury, the eGFRmay not accurately reflect actual GFR. Red Cell Distribution WidthOctober 2024 11:37amOctober 2024 11:37am 12.4 %11.5-15.0Urine Leukocyte EsteraseOctober 2024 12:19pmOctober 2024 12:19pmNegativeNegativeSodium LevelOctober 2024 6:59amOctober 2024 6:86ai766 mmol/B113-607Wwbdlwlra Red Blood Cells #December 19, 2024 6:59am December 19, 2024 6:59am<0.01 k/uL<0.01Mean Platelet VolumeOctober 2024 11:37amOctober 2024 11:37am9.7 fL9.0-12.7Urine NitriteOctober 2024 12:19pmOctober 2024 12:19pmNegativeNegativeBlood Urea NitrogenOctober 2024 6:59amOct2024 6:59am21 mg/dL9-24Platelet CountOct2024 6:59amOct2024 6:54pd418 k/fK793-311Wvjzp pHOctober 2024 12:19pm January 09, 2025 12:19pm5.05.0-8.0Alkaline PhosphataseOct2024 6:59am December 19, 2024 6:59am82 U/D02-213Dopy Corpuscular HemoglobinOct2024 6:59amOct2024 6:59am31.3 pg26.0-34.0Urine ProteinOctober 2024 12:19pmOctober 2024 12:19pmNegativeNegativeCalcium LevelOctober 2024 6:59amOctober 2024 6:59am9.6 mg/dL8.5-10.2Mean Corpuscular Hemoglobin ConcentOct2024 6:59amOct2024 6:59am33.7 g/dL30.5-36.0Urine Specific GravityOct2024 12:19pmOctober 2024 12:19pm1.027 1.005-1.030Anion GapOct2024 6:59amOct2024 6:59am13 mmol/L 8-15Mean Corpuscular VolumeOct2024 6:59amOct2024 6:59am92.8 fL80.0-100.0Urine UrobilinogenOctober 2024 12:19pmJanuary 09, 2025 12:19pm0.2 EU/dL0.2-1.0 EU/dLEstimated GFR (CKD-EPI)December 19, 2024 6:59am December 19, 2024 6:59am68 mL/min/1.73m???>=60Estimated Glomerular Filtration Rate (eGFR) is calculated using the 2020 CKD-EPI creatinine equation. This equation utilizes serum creatinine, sex, and age as parameters. The creatinine assay has traceable calibration to isotope dilution-mass spectrometry. Refer to KDIGO guidelines for clinical interpretation. In patients with unstable renal function, e.g. those with acute kidney injury, the eGFRmay not accurately reflect actual GFR.Red Blood CountOct2024 6:59amOct2024 6:59am4.19 m/uLBelow low normal4.20-6.00Urine WBCOctober 2024 12:19pm January 09, 2025 12:21kq3-0 /HPF0-5 /HPFHematocritOct2024 6:59am December 19, 2024 6:59am38.9 %Below low xryphf93.0-51.0Urine RBCOctober 2024 12:19pmOctober 2024 12:72pz5-8 /HPF0-2 /HPFMonocytes (%) (Auto) December 19, 2024 6:59amOct2024 6:59am9.4 %Urine AppearanceOct2024 12:19pmOctober 2024 12:19pmClearClearCorrected White Blood CountOctober 2024 6:59amOctober 2024 6:59am8.11 k/uL3.70-11.00 Nucleated RBC Relative Count (auto)December 19, 2024 6:59amOctober 2024 6:59am0.0 /100{WBC}Red Cell Distribution WidthOctober 2024 6:59amOctober 2024 6:59am13.6 %11.5-15.0Mean Platelet VolumeOctober 2024 6:59am December 19, 2024 6:59am9.3 fL9.0-12.7Differential CommentOct2024 6:59amOctober 2024 6:59amAutoImmature Granulocyte # (Auto)December 19, 2024 6:59amOctober 2024 6:59am0.04 k/uL<0.10Immature Granulocyte % (Auto) December 19, 2024 6:59amOctober 2024 6:59am0.5 % Vital Signs Vital Reading Result Reference Range Collection Date/Time Weight 100.24 kg December 07, 2024 7:31amBody Izggexjboup34.5 [degF]97.6-99.0September 2024 7:31amHeart Rate67 /eym99-897Idtjlitax 24th, 2025 7:31amRespiratory rate18 /clq45-93Xpysohjob 2024 7:31amOxygen saturation by Pulse bjghnech51 % 95-100September 2024 7:31amBP Abnvdvtl754 mm[Hg]100-140September 2024 7:31amBP Xktustsre45 mm[Hg]60-100September 2024 7:60njNkzkjl92 [in_i] February 27, 2025 8:34hiVjkwbq277.51 kgDecember 2024 8:12amBody Zeuarpzibqr38.1 [degF]97.6-99.0December 2024 8:12amHeart Rate79 /gmh90-757 February 27, 2025 8:12amRespiratory rate18 /joc95-22QlpekiurFebruary 27, 2025 8:12am Oxygen saturation by Pulse chbccyuy05 %95-100February 27, 2025 8:12amBP Wvelwquq520 mm[Hg]100-140February 27, 2025 8:12amBP Wmjdmrbum92 mm[Hg]60-100 February 27, 2025 8:12amBMI (Body Mass Index)34.3 kg/p9PtugwkrfFebruary 27, 2025 8:12am Advance Directives Advance Directive Response Recorded Date/ Time Advance Directives No June 16 3:32pm Insurance Providers Guarantor Geovany Amira Allen Address [address] [place] [address]Contact Info.Home Phone: Payer Group Member ID Coverage Type Subscriber Relationship to Subscriber Effective Date Expiration Date MMO [id number] K Bennett Id: [id number] [address] [facility] [address] Home Phone: SelfMedicare [id number] K Bennett Id: [id number] [address] [facility] [address] Home Phone: Self Encounters Encounter Location(s) Arrival/Admit Date Discharge/Departure Date Discharge/Departure Disposition Provider(s) Departed Physician/ Provider Office Visit -[facility] [place] December 07, 2024 8:09am December 07, 2024 9:07am Discharged to home care or self care (routine discharge) Dayron Ferreira MD Non-patient / Non-visit -[facility] O ctober 2024 7:59am ALLISON Simons-CNon-patient / Gyq-hsvzx-[facility] [place] [facility]October 2024 12:37pmJose Hernández MDNon-patient / Dyp-ahjdy-Zalud [facility]December 2024 11:11amMaDELORES Scotteparted Physician/Provider Office Visit-[facility] Family Medicine [facility] 2024 7:57amDecember 2024 8:59amDischarged to home care or self care (routine discharge)Dayron Ferreira MD Recent Diagnosis Onset Date Admit Date Benign hypertension Unknown December 072024 8:09am Bilateral primary osteoarthritis of hip Unknown December 07, 2024 8:09am Class 1 obesity due to exces s calories with serious comorbidity and body ma Unknown December 07, 2024 8 :09am Dyslipidemia Unknown December 07, 2024 8:09am Encounter for long-term (cur rent) use of medications Unknown December 07, 2024 8:09am Lumbar stenosis without neur ogenic claudication Unknown December 07, 2024 8:09am Prediabetes Unknown December 07, 2024 8:09am PVC (premature ventricular contraction) Unknown December 07, 2024 8:09am Tinea cruris Unknown December 07, 2024 8:09am Urothelial carcinoma of blad viky with invasion of muscle Unknown December 07, 2024 8:09am Venous insufficiency Unknown November 152024 8:09am Benign hypertension Unknown February 7:57am Bilateral primary osteoarthritis of hip Unknown February 27, 2025 7:57am Lumbar stenosis without neur ogenic claudication Unknown February 27, 2025 7:57am PVC (premature ventricular contraction) Unknown February 27, 2025 7:57am Urothelial carcinoma of blad viky with invasion of muscle Unknown February 27, 2025 7:57am Venous insufficiency Unknown February 272024 7:57am Assessments Diagnosis Onset Date Resolution Status Admit Date Benign hypertension acuteDecember 07, 2024 8:09amBilateral primary osteoarthritis of hipacute December 07, 2024 8:09amClass 1 obesity due to excess calories with serious comorbidity and body maacuteSept2024 8:09amDyslipidemiaacute December 07, 2024 8:09amEncounter for long-term (current) use of medications acuteDecember 07, 2024 8:09amLumbar stenosis without neurogenic claudication acuteSept2024 8:09amPrediabetesacutept2024 8:09amPVC (premature ventricular contraction)acuteDecember 07, 2024 8:09amTinea cruris acutept2024 8:09am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acuteDecember 07, 2024 8:09amVenous insufficiencyacuteDecember 07, 2024 8:09amBenign hypertensionacuteFebruary 27, 2025 7:57amBilateral primary osteoarthritis of hipacuteFebruary 27, 2025 7:57amLumbar stenosis without neurogenic claudicationacuteFebruary 27, 2025 7:57amPVC (premature ventricular contraction)acuteDe2024 7:57am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acuteFebruary 27, 2025 7:57amVenous insufficiencyacute February 27, 2025 7:57am Plan of Treatment [facility]20[facility] 8:12amBP elevated in office and continue to monitor at home. If remains elevated will need to increase lisinopril. Continued pain and limiting activity. Recommend referral to pain management for injections but wants to talk to ortho first. Continued pain and follow with ortho. No symptoms and continue metoprolol. Edema stable and use lasix PRN. Elevate legs PRN. Follow with urology. Rash appears fungal and start cream. Author Dayron Ferreira [facility] 2024 8:45amBP controlled and monitor PRN. Discussed DASH diet Continued pain limiting activity and considering hip replacement. Recommend return pain management for injections prior to surgery. Continued pain and follow with ortho. No symptoms and continue metoprolol. Edema stable and use lasix PRN. Elevate legs PRN. Follow with urology. Future Tests Future scheduled test information is unavailable Pending Tests Pending diagnostic test information is unavailable Future Visits Future appointment information is unavailable Future Procedures Future procedure information is unavailable Future Medications Future medication information is unavailable Patient Instructions Patient instructions are [id number]
[2025-02-27 13:20] LABS: INR 1.36; Prothrombin Time 14.0 sec (9.0-11.6)
== END 2025-02-27 12:38 | disposition home or self-care (01) ==
LOC: LAB 12:37
PROVIDERS: PCP Family Medicine; Visit Provider Family Medicine
DX: Z79.01 Long term (current) use of 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 (principal)
CPT/HCPCS: 36415; 85610